=== PATIENT | female | born 1970 | race Caucasian/White ===

== ENCOUNTER → 2018-10-06 15:13 | Outpatient (CLI) | payer SELFPAY ==
--- NOTE | 2018-10-06 15:19 | BI_ITS ---
MAMMOGRAPHY - BILATERAL SCREENING REASON FOR EXAM: Female, 48 years old. Routine annual screening examination. PERTINENT HISTORY: Grandmother with breast cancer. Occasional bilateral breast tenderness. TECHNIQUE: Digital bilateral breast veronica (3D mammographic acquisition) in the CC and MLO projections. 2-D mediolateral oblique (MLO) and craniocaudad (CC) views of both breasts were obtained. CAD: Full Field Digital Mammography with Computer Added Detection was performed. COMPARISON: Comparison is made with prior study dated August 02, 2016 and September 23, 2013. FINDINGS: Breast Composition: The breasts are heterogeneously dense, which may obscure small masses. There are no dominant masses or suspicious calcifications. No other significant abnormalities are identified. There has been no significant change since the prior study. BI/SCREENING MAMM (CAD), BILAT IMPRESSION: Stable bilateral screening mammogram. Yearly follow-up mammogram recommended. (A) ASSESSMENT CATEGORY: BIRADS Category 1: Negative. A letter regarding these results will be sent to the patient by the facility within 30 days. Approximately 10% of breast cancers are not detected by mammography. A normal mammogram should not delay biopsy of a clinically suspicious abnormality. [id number] Electronically Signed: Isacc Wills, at 7:57 EDT , Service support ,
== END ==
PROVIDERS: Family Provider Family Medicine; PCP Family Medicine; Referring Provider Obstetrics & Gynecology Gynecology; Visit Provider Obstetrics & Gynecology Gynecology
DX: Z12.31 Encounter for screening mammogram for malignant neoplasm of breast (principal); Z80.3 Family history of malignant neoplasm of breast
CPT/HCPCS: 77063; 77067

== ENCOUNTER → 2019-03-31 11:54 | Outpatient (CLI) | payer SELFPAY ==
[2019-03-31 13:19] LABS: EST Glomerular Filtration Rate 81 mL/min (>60); Est Glom Filt Rate - Afr Amer 98 mL/min (>60); T4 Free Direct 1.09 ng/dL (0.76-1.46)
== END ==
PROVIDERS: Family Provider Family Medicine; PCP Family Medicine; Referring Provider Family Medicine; Visit Provider Family Medicine
DX: E03.9 Hypothyroidism, unspecified (principal)
CPT/HCPCS: 36415; 82565; 84439; 84443

== ENCOUNTER → 2020-08-01 06:44 | Outpatient (CLI) | payer OTHER, SELFPAY ==
--- NOTE | 2020-08-01 06:47 | ECHOD_ITS ---
Reason For Study: Chest Pain Procedure This was a 2D Doppler, Color Flow transthoracic echocardiogram. Contrast injection was performed. Exam performed in department. Left Ventricle Normal LV size. Left ventricular systolic function is normal. The estimated ejection fraction is 65 %. Transmitral doppler flow suggestive of impaired relaxation of left ventricle. No regional wall motion abnormalities noted. Right Ventricle Normal RV size. Normal systolic function. Atria Normal left atrium. Normal right atrium. No doppler evidence for ASD. Bubble contrast study negative for right to left interatrial shunt. Mitral Valve There is no mitral annular calcification. Mild diffuse mitral valve thickening. Equivocal mitral valve prolapse. Trivial mitral valve insufficiency. Tricuspid Valve Normal tricuspid valve. Trivial tricuspid valve insufficiency. Unable to estimate RV systolic pressure due to insufficient tricuspid regurgitant envelope. Aortic Valve Trisinus/trileaflet aortic valve. Normal aortic valve. Pulmonic Valve The pulmonic valve is not well visualized. Trivial pulmonic valve insufficiency. Great Vessels Normal sized aortic root. Pericardium/Pleural No pericardial effusion. Medication Performed a rapid injection of agitated mix of 9 cc saline and 1cc air to assess for atrial septal defect. MMode/2D Measurements & Calculations LVIDd: 4.0 cm IVSd: 0.86 cm Ao root diam: 3.0 cm LVIDs: 2.6 cm LVPWd: 0.79 cm RVDd: 2.8 cm FS: 36.0 % LAV(MOD-bp): 29.5 ml LVAd ap4: 19.2 cm2 SV(MOD-sp4): 28.2 ml LAV(MOD-bp) Indexed: 16.0 ml/m2 EDV(MOD-sp4): 44.8 ml LAV(MOD-sp2): 32.0 ml EDV(sp4-el): 46.1 ml LAV(MOD-sp4): 25.0 ml LVAs ap4: 10.3 cm2 ESV(MOD-sp4): 16.6 ml ESV(sp4-el): 17.0 ml EF(MOD-sp4): 62.9 % EF(sp4-el): 63.1 % SV(sp4-el): 29.1 ml LA A4 area: 12.7 cm2 LA dimension(2D): 2.9 cm RA A4 area: 8.5 cm2 Doppler Measurements & Calculations MV E max vikas: 51.8 cm/sec Lat Peak E' Vikas: 7.9 cm/sec Med Peak E' Vikas: 7.9 cm/sec MV A max vikas: 71.7 cm/sec E/E' lat: 6.6 E/E' med: 6.6 MV E/A: 0.72 Ao V2 max: 107.8 cm/sec LV V1 max: 112.2 cm/sec PA V2 max: 70.5 cm/sec Ao max P.7 mmHg LV V1 max P.0 mmHg Ao V2 mean: 82.5 cm/sec Ao mean P.9 mmHg Ao V2 VTI: 17.5 cm Interpretation Summary Left ventricular systolic function is normal. The estimated ejection fraction is 65 %. Mild diffuse mitral valve thickening. Equivocal mitral valve prolapse. Trivial mitral valve insufficiency. Trivial tricuspid valve insufficiency. Trivial pulmonic valve insufficiency. Unable to estimate RV systolic pressure due to insufficient tricuspid regurgitant envelope. Transmitral doppler flow suggestive of impaired relaxation of left ventricle Bubble contrast study negative for right to left interatrial shunt. Ordering Physician: Gloria James Referring Physician: Gloria James Performed By: Charlotte Brink, DANNY, RVT
--- NOTE | 2020-08-01 13:43 | STRESSREP_ITS ---
Stress Test Report Date: 08/01/2020 Procedure: Exercise tolerance test/imaging study Indications: Chest pain low Consent: Per the patient Procedure: The patient exercised on a Frederick protocol for 7 minutes and 30 seconds achieving a peak heart rate of 169 bpm (99% predicted maximal heart rate) with a peak blood pressure 118/70 mmHg and a peak MET capacity of 9.2 METs. The baseline ECG demonstrated normal sinus rhythm. The peak exercise ECG demonstrated no significant ischemic changes. EKG during recovery revealed no significant ischemic changes [There were no cardiac dysrhythmias pretest, during exercise, or recovery]. The functional capacity was considered normal for age. There was [no complaint of chest discomfort during exercise or recovery]. The examination was discontinued secondary to shortness of breath, achieving target heart rate. Impression: 1. Technically adequate (percent predicted maximal heart rate greater than 85%) exercise tolerance test 2. Stress test is negative for exercise-induced EKG changes of ischemia 3. The test test is negative for exercise-induced chest pain 4. Functional capacity is normal for age 5. Nuclear images pending Myocardial perfusion imaging study: Technique: The patient was injected with 11.1 mCi of technetium 99m Cardiolite and subsequently rest SPECT Cardiolite nuclear imaging was obtained in the horizontal long, vertical long, and short axis views. The patient exercised on a Frederick protocol. Please see above for details. The patient was injected with 33.3 mCi of technetium 99m Cardiolite and subsequently stress SPECT Cardiolite nuclear imaging was obtained in the horizontal long, vertical long, and short axis views. A gated Cardiolite study at peak stress was obtained. Interpretation: Rest and stress SPECT Cardiolite nuclear imaging status post realignment, normalization, and attenuation correction, demonstrates overall normal myocardial radioisotope uptake. The gated Cardiolite study demonstrates no significant regional wall motion abnormalities. The reported LVEF is greater than 70%. Impression: 1. There is no evidence of significant ischemia or infarction. 2. The gated Cardiolite study reports an LVEF of greater than 70%. This note was generated with [employer] software. It may contain incorrect words, spelling, and punctuation that were not noted in checking the note before signing.
== END ==
PROVIDERS: PCP Internal Medicine; Referring Provider Internal Medicine; Visit Provider Internal Medicine
DX: R07.9 Chest pain, unspecified (principal)
CPT/HCPCS: 78452; 93017; 93306; A9500; A4216

== ENCOUNTER → 2020-10-08 10:38 | Outpatient (CLI) | payer OTHER, SELFPAY ==
[2020-09-27 12:31] VITALS: BMI 30.7
== END ==
PROVIDERS: PCP Internal Medicine; Referring Provider Internal Medicine Critical Care Medicine; Visit Provider Internal Medicine Critical Care Medicine
DX: G47.10 Hypersomnia, unspecified (principal)
CPT/HCPCS: 95806

== ENCOUNTER → 2020-10-22 10:26 | Outpatient (CLI) | payer OTHER, SELFPAY ==
[2020-09-27 12:31] VITALS: BMI 30.7
[2020-10-22 13:26] LABS: Free T3 3.2 pg/mL (2.18-3.98); T4 Free Direct 1.76 ng/dL (0.76-1.46); Thyroid Stim Hormone (TSH) < 0.01 uIU/mL (0.358-3.74)
[2020-10-23 15:58] LABS: Carbohydrate AG 19-9 3 U/mL (0-35)
== END ==
PROVIDERS: PCP Internal Medicine; Referring Provider Internal Medicine; Visit Provider Internal Medicine
DX: E03.9 Hypothyroidism, unspecified (principal); Z01.419 Encounter for gynecological examination (general) (routine) without abnormal findings; Z83.49 Family history of other endocrine, nutritional and metabolic diseases
CPT/HCPCS: 36415; 84439; 84443; 84481; 86301

== ENCOUNTER → 2021-07-03 08:20 | Outpatient (CLI) | payer OTHER, SELFPAY ==
--- NOTE | 2021-07-03 08:21 | RAD_ITS ---
INDICATION: Chronic Back Pain EXAMINATION/TECHNIQUE: X-RAY - XR Spine Lumbar 2 or 3 Views COMPARISON: 05/27/2016. FINDINGS: VERTEBRAE: Preserved vertebral body height. No fracture. No spondylolisthesis. Preservation of the normal lumbar lordosis. Increased density visualized in the posterior column most prominent at L5 on the right. These demonstrate progression in comparison to the prior study. DISCS: Decreased intervertebral disc height visualized at L5-S1 INCLUDED ABDOMEN: Included bowel gas pattern is non-obstructive. RAD/Lumbar Spine 2 or 3 Views IMPRESSION: Degenerative changes visualized most prominent at L5-S1 with hypertrophic changes in the facet joints. Electronically Signed: Anibal Mckeon MD at 10:12 EST Tel , Service support ,
--- NOTE | 2021-07-03 08:21 | RAD_ITS ---
INDICATION: Chronic Back Pain EXAMINATION/TECHNIQUE: X-RAY - XR Sacrum/Coccyx Min 2 Views COMPARISON: 05/27/2016. FINDINGS: SACRUM/COCCYX: No displaced fracture, destructive or sclerotic lesions. Note that overlapping bowel shadows may however obscure fine detail in the frontal view. Note is made of degenerative changes at the lumbosacral junction with hypertrophic changes of the L5 facet joints. SACRO-ILIAC JOINTS: The articular structures are unremarkable. SOFT TISSUES: No soft tissue swelling or gas. RAD/Sacrum-Coccyx min 2 Views IMPRESSION: Degenerative changes of the lumbosacral junction. Unremarkable sacro-coccygeal spine. Electronically Signed: Anibal Mckeon MD at 10:34 EST Tel , Service support ,
[2021-07-03 10:13] LABS: Absolute Neutrophil Count 3.5 X10^3/uL (2.0-7.7); Basophil# 0.02 X10^3/uL; Basophil% 0.4 % (0-1); Eosinophil# 0.04 X10^3/uL; Eosinophils% 0.7 % (0-5); Hematocrit 41.4 % (37-47); Hemoglobin 13.5 g/dL (12.0-15.0); Lymphocyte % 28.7 % (19-41); Mean Corp Hgb Conc 32.6 g/dL (32-36); Mean Corpuscular Hgb 30.2 pg (27.0-32.0); Mean Corpuscular Volume 92.6 fL (81-99); Mean Platelet Vol. 9.5 fl (6.2-12.0); Monocyte# 0.43 X10^3/uL; Monocyte% 7.7 % (0-10); NRBC Flagged by Analyzer 0 % (0-5); Neutrophil # 3.47 X10^3/uL (2.7-7.7); Neutrophil % 62.1 % (47-70); Platelet Count 336 K/mm3 (150-450); RBC Distribution Width CV 12.3 % (11.6-14.6); RBC Distribution Width SD 41.6 fl (35.1-43.9); Red Blood Count 4.47 M/mm3 (4.2-5.4); White Blood Count 5.6 K/mm3 (4.4-11.0)
[2021-07-03 10:45] LABS: AST(SGOT) 15 U/L (15-37); Alanine Aminotransfer ALT/SGPT 25 U/L (13-56); Albumin, Serum 3.7 g/dL (3.2-5.0); Alkaline Phosphatase 90 U/L (45-117); Anion Gap 7 (5-15); BUN 13 mg/dL (7-18); BUN/Creat Ratio 16.8 RATIO (10-20); Calcium,Total 9.1 mg/dL (8.5-10.1); Chloride 105 mmol/L (98-107); Cholesterol 191 mg/dL (200); Creatinine, Serum 0.77 mg/dL (0.55-1.02); EST Glomerular Filtration Rate 84 mL/min (>60); Est Glom Filt Rate - Afr Amer 101 mL/min (>60); Globulin 3.8 g/dL (2.2-4.2); Glucose 113 mg/dL (74-106); High Density Lipoprotein 56 mg/dL; Potassium 3.9 mmol/L (3.5-5.1); Protein, Total 7.5 g/dL (6.4-8.2); Sodium Level 139 mmol/L (136-145); Thyroid Stim Hormone (TSH) 0.15 uIU/mL (0.358-3.74); Triglycerides 225 mg/dL; Very Low Density Lipoprotein 45 mg/dL (5-40)
== END ==
PROVIDERS: PCP Internal Medicine; Referring Provider Internal Medicine; Visit Provider Internal Medicine
DX: E03.9 Hypothyroidism, unspecified (principal); M54.9 Dorsalgia, unspecified; G89.29 Other chronic pain
CPT/HCPCS: 36415; 72100; 72220; 80053; 80061; 84443; 85025

== ENCOUNTER 2021-09-04 12:29 | Outpatient (CLI) | payer OTHER, SELFPAY ==
--- NOTE | 2021-09-04 12:48 | MRI_ITS ---
STUDY: BILATERAL BREAST MR WITHOUT AND WITH CONTRAST REASON FOR EXAM: Female, 51 years old. Family history of breast cancer. TECHNIQUE: Multi-sequence multi-echo imaging of both breasts was performed with a dedicated breast coil. T1-weighted and T2-weighted images were performed before the administration of contrast. T1-weighted images were also performed after the administration of 16 mL of Dotarem contrast without complications. COMPARISON: Screening mammogram dated 09/04/2021 and 10/06/2018. FINDINGS: RIGHT BREAST: The breast tissue is scattered fibroglandular densities with minimal background enhancement. Minimal ductal ectasia. There are no abnormal enhancing masses or areas of non-mass enhancement in the right breast. No abnormal axillary adenopathy. LEFT BREAST: The breast tissue is scattered fibroglandular densities with minimal background enhancement. Minimal ductal ectasia. There are no abnormal enhancing masses or areas of non-mass enhancement in the left breast. No abnormal axillary adenopathy. No abnormality in the visualized regions of the chest or liver. MRI/Breast Bilateral W/O and W IMPRESSION: Minimal bilateral ductal ectasia. No other abnormality is present. Annual screening mammogram with the appropriate. CATEGORY: BIRADS Category 2: Benign. A letter regarding these results will be sent to the patient by the facility within 30 days. Electronically Signed: Anival Guillermo MD at 10:22 EST ,
--- NOTE | 2021-09-04 13:58 | BI_ITS ---
MAMMOGRAPHY - BILATERAL SCREENING REASON FOR EXAM: Female, 51 years old. Routine annual screening examination. PERTINENT HISTORY: Grandmother with breast cancer. BRCA positive TECHNIQUE: Digital bilateral breast haseeb (3D mammographic acquisition) in the CC and MLO projections. 2-D mediolateral oblique (MLO) and craniocaudad (CC) views of both breasts were obtained. CAD: Full Field Digital Mammography with Computer Added Detection was performed. COMPARISON: Comparison is made with prior study dated 10/06/2018 and 08/02/2016. FINDINGS: Breast Composition: There are scattered areas of fibroglandular density. There are no dominant masses or suspicious calcifications. Stable small benign-appearing bilateral axillary lymph nodes. No other significant abnormalities are identified. There has been no significant change since the prior study. BI/SCRN MAMM (CAD)W/HASEEB BILAT IMPRESSION: Stable bilateral screening mammogram. Yearly follow-up mammogram recommended. (A) ASSESSMENT CATEGORY: BIRADS Category 2: Benign. A letter regarding these results will be sent to the patient by the facility within 30 days. Approximately 10% of breast cancers are not detected by mammography. A normal mammogram should not delay biopsy of a clinically suspicious abnormality. [id number] Electronically Signed: Isacc Wills MD at 14:57 EST ,
== END 2021-09-04 23:59 | disposition home or self-care (01) ==
PROVIDERS: PCP Internal Medicine; Referring Provider Obstetrics & Gynecology Gynecology; Visit Provider Obstetrics & Gynecology Gynecology
DX: Z12.31 Encounter for screening mammogram for malignant neoplasm of breast (principal); Z80.3 Family history of malignant neoplasm of breast; Z13.79 Encounter for other screening for genetic and chromosomal anomalies
CPT/HCPCS: 77049; 77063; 77067; A9575; A4216; C8908

== ENCOUNTER 2021-09-13 11:00 | Outpatient (CLI) | payer OTHER, SELFPAY | END 2021-09-13 23:59 | disposition home or self-care (01) | LOC: SL 11:52 | PROVIDERS: PCP Internal Medicine; Visit Provider Nurse Practitioner Acute Care | DX: G47.33 Obstructive sleep apnea (adult) (pediatric) (principal) ==

== ENCOUNTER → 2021-12-12 | Outpatient (CLI) | payer OTHER, SELFPAY | END | disposition home or self-care (01) | LOC: LAB 08:21 | PROVIDERS: PCP Internal Medicine; Referring Provider Internal Medicine; Visit Provider Internal Medicine | DX: E03.9 Hypothyroidism, unspecified (principal) | CPT/HCPCS: 36415; 84443 ==

== ENCOUNTER → 2021-12-17 | Outpatient (CLI) | payer OTHER, SELFPAY ==
[2021-12-17 15:48] LABS: Absolute Lymphocyte Count 2.42 X10^3/uL (0.83-4.51); Absolute Neutrophil Count 4.5 X10^3/uL (2.0-7.7); Basophil# 0.02 X10^3/uL; Basophil% 0.3 % (0-1); Eosinophil# 0.09 X10^3/uL; Eosinophils% 1.2 % (0-5); Hematocrit 41.4 % (37-47); Hemoglobin 13.6 g/dL (12.0-15.0); Lymphocyte # 2.42 X10^3/ul (0.83-4.51); Mean Corp Hgb Conc 32.9 g/dL (32-36); Mean Corpuscular Hgb 31.3 pg (27.0-32.0); Mean Corpuscular Volume 95.4 fL (81-99); Mean Platelet Vol. 9.7 fl (6.2-12.0); Monocyte# 0.56 X10^3/uL; Monocyte% 7.4 % (0-10); NRBC Flagged by Analyzer 0 % (0-5); Neutrophil # 4.46 X10^3/uL (2.7-7.7); Neutrophil % 58.8 % (47-70); Platelet Count 360 K/mm3 (150-450); RBC Distribution Width CV 12.6 % (11.6-14.6); Red Blood Count 4.34 M/mm3 (4.2-5.4); White Blood Count 7.6 K/mm3 (4.4-11.0)
[2021-12-17 16:28] LABS: AST(SGOT) 17 U/L (15-37); Alanine Aminotransfer ALT/SGPT 23 U/L (13-56); Albumin, Serum 3.8 g/dL (3.2-5.0); Alkaline Phosphatase 85 U/L (45-117); Anion Gap 5 (5-15); BUN 16 mg/dL (7-18); BUN/Creat Ratio 19.3 RATIO (10-20); Calcium,Total 9.6 mg/dL (8.5-10.1); Chloride 104 mmol/L (98-107); Creatinine, Serum 0.83 mg/dL (0.55-1.02); EST Glomerular Filtration Rate 77 mL/min (>60); Est Glom Filt Rate - Afr Amer 93 mL/min (>60); Globulin 3.7 g/dL (2.2-4.2); Glucose 82 mg/dL (74-106); Potassium 4.4 mmol/L (3.5-5.1); Protein, Total 7.5 g/dL (6.4-8.2); Sodium Level 139 mmol/L (136-145)
== END | disposition home or self-care (01) ==
LOC: BIMLAB 13:35
PROVIDERS: PCP Internal Medicine; Referring Provider Internal Medicine; Visit Provider Internal Medicine
DX: E03.9 Hypothyroidism, unspecified (principal)
CPT/HCPCS: 36415; 80053; 85025

== ENCOUNTER → 2022-02-20 | Outpatient (CLI) | payer OTHER, SELFPAY ==
[2022-02-20 12:24] LABS: Thyroid Stim Hormone (TSH) 0.15 uIU/mL (0.358-3.74)
== END | disposition home or self-care (01) ==
LOC: BIMLAB 09:24
PROVIDERS: PCP Internal Medicine; Referring Provider Physician Assistant; Visit Provider Physician Assistant
DX: E03.9 Hypothyroidism, unspecified (principal)
CPT/HCPCS: 36415; 84443

== ENCOUNTER → 2022-02-24 | Outpatient (CLI) | payer OTHER, SELFPAY ==
--- NOTE | 2022-02-24 09:50 | RAD_ITS ---
STUDY: X-RAY - PELVIS AND RIGHT HIP REASON FOR EXAM: Female, 52 years old. Pain. TECHNIQUE: 3 views of the pelvis and hip. COMPARISON: Bilateral hips, 07/19/2020. FINDINGS: There is a non-specific bowel gas pattern. Normal visualized soft tissue structures. Normal bilateral iliac wings, sacroiliac joints and visualized sacrum. Normal bilateral superior and inferior pubic rami. Normal pubic symphysis. Normal bilateral ischial tuberosities. Normal visualized right femoral head. Normal right acetabulum. Normal right hip joint. RAD/HIP, UNI W/ Pelvis 2-3 Views IMPRESSION: Normal x-ray examination of the pelvis and right hip. No major interval change. Electronically Signed: Chuck Shepherd DO at 22:06 EDT ,
== END | disposition home or self-care (01) ==
LOC: RAD 09:49
PROVIDERS: PCP Internal Medicine; Referring Provider Anesthesiology Pain Medicine; Visit Provider Anesthesiology Pain Medicine
DX: M25.551 Pain in right hip (principal)
CPT/HCPCS: 73502

== ENCOUNTER → 2022-04-24 | Outpatient (CLI) | payer OTHER, SELFPAY ==
[2022-04-24 17:09] LABS: Thyroid Stim Hormone (TSH) 0.54 uIU/mL (0.358-3.74)
== END | disposition home or self-care (01) ==
LOC: BIMLAB 15:21
PROVIDERS: PCP Internal Medicine; Referring Provider Internal Medicine; Visit Provider Internal Medicine
DX: E03.9 Hypothyroidism, unspecified (principal)
CPT/HCPCS: 36415; 84443

== ENCOUNTER → 2022-08-21 | Outpatient (CLI) | payer OTHER, SELFPAY ==
[2022-08-21 12:58] LABS: Thyroid Stim Hormone (TSH) 0.28 uIU/mL (0.358-3.74)
== END | disposition home or self-care (01) ==
LOC: BIMLAB 10:41
PROVIDERS: PCP Internal Medicine; Referring Provider Nurse Practitioner Family; Visit Provider Nurse Practitioner Family
DX: E03.9 Hypothyroidism, unspecified (principal)
CPT/HCPCS: 36415; 84443

== ENCOUNTER → 2022-09-01 | Outpatient (CLI) | payer OTHER, SELFPAY ==
[2022-09-01 12:10] LABS: Erythrocyte Sedimentation Rate 15 mm/hr (0-30)
[2022-09-01 12:13] LABS: Absolute Neutrophil Count 3.8 X10^3/uL (2.0-7.7); Basophil# 0.03 X10^3/uL; Basophil% 0.5 % (0-1); Eosinophil# 0.07 X10^3/uL; Eosinophils% 1.1 % (0-5); Lymphocyte % 29.6 % (19-41); Mean Corp Hgb Conc 32.6 g/dL (32-36); Mean Corpuscular Hgb 30.3 pg (27.0-32.0); Mean Corpuscular Volume 93.1 fL (81-99); Mean Platelet Vol. 9.8 fl (6.2-12.0); Monocyte# 0.39 X10^3/uL; Monocyte% 6.4 % (0-10); NRBC Flagged by Analyzer 0 % (0-5); Neutrophil % 62.4 % (47-70); Platelet Count 380 K/mm3 (150-450); RBC Distribution Width CV 12.6 % (11.6-14.6); RBC Distribution Width SD 43.2 fl (35.1-43.9); Red Blood Count 4.62 M/mm3 (4.2-5.4); White Blood Count 6.1 K/mm3 (4.4-11.0)
[2022-09-01 12:29] LABS: ALB/GLOB Ratio 0.9 RATIO (0.9-2.4); AST(SGOT) 21 U/L (15-37); Alanine Aminotransfer ALT/SGPT 28 U/L (13-56); Albumin, Serum 3.8 g/dL (3.2-5.0); Alkaline Phosphatase 91 U/L (45-117); Anion Gap 6 (5-15); BUN 16 mg/dL (7-18); BUN/Creat Ratio 20.2 RATIO (10-20); CRP 7.76 mg/L (0.0-3.0); Calcium,Total 9.7 mg/dL (8.5-10.1); Chloride 104 mmol/L (98-107); Creatinine, Serum 0.79 mg/dL (0.55-1.02); EST Glomerular Filtration Rate 81 mL/min (>60); Est Glom Filt Rate - Afr Amer 98 mL/min (>60); Globulin 4.1 g/dL (2.2-4.2); Glucose 95 mg/dL (74-106); Potassium 4.3 mmol/L (3.5-5.1); Protein, Total 7.9 g/dL (6.4-8.2); Rheumatoid Factor < 10.0 IU/mL (<15); Sodium Level 136 mmol/L (136-145)
[2022-09-01 12:34] LABS: Vitamin B12 367 pg/mL (211-911); Vitamin D,25 Hydroxy 22.1 ng/mL
[2022-09-02 14:36] LABS: ANTINUCLEAR ANTIBODIES DIRECT Negative (Negative)
[2022-09-02 14:37] LABS: CCP IgG Antibodies 1 units (0-19)
== END | disposition home or self-care (01) ==
LOC: BIMLAB 08:49
PROVIDERS: PCP Internal Medicine; Visit Provider Internal Medicine
DX: M19.90 Unspecified osteoarthritis, unspecified site (principal); E03.9 Hypothyroidism, unspecified; Z13.21 Encounter for screening for nutritional disorder
CPT/HCPCS: 36415; 80053; 82306; 82607; 85025; 85652; 86038; 86140; 86200; 86225; 86235; 86431

== ENCOUNTER → 2022-09-19 | Outpatient (CLI) | payer OTHER, SELFPAY ==
--- NOTE | 2022-09-19 09:58 | RAD_ITS ---
STUDY: X-RAY - PELVIS AND BILATERAL HIPS REASON FOR EXAM: Female, 52 years old. Bilateral hip pain. TECHNIQUE: AP view of the pelvis.? 2 views of the right hip, and 2 views of the left hip were obtained. COMPARISON: Pelvis and hip images dated February 08 FINDINGS: There is a non-specific bowel gas pattern. Normal visualized soft tissue structures. Normal bilateral iliac wings, sacroiliac joints and visualized sacrum. Normal bilateral superior and inferior pubic rami. Normal pubic symphysis. Normal bilateral ischial tuberosities. Sacralization of the right transverse process of L5, a normal variant which may be painful. Normal visualized right femoral head. Normal right acetabulum. Normal right hip joint. Normal visualized left femoral head. Normal left acetabulum. Normal left hip joint. RAD/Hips B/L min 2 views w/ Pelvis IMPRESSION: Stable sacralization of the right transverse process of L5, a normal variant which may be painful. Electronically Signed: Anival Guillermo, at 12:52 EDT ,
== END | disposition home or self-care (01) ==
LOC: MTRAD 09:58
PROVIDERS: PCP Internal Medicine; Referring Provider Internal Medicine; Visit Provider Internal Medicine
DX: M25.551 Pain in right hip (principal); M25.552 Pain in left hip
CPT/HCPCS: 73502; 73521

== ENCOUNTER → 2022-11-03 | Outpatient (CLI) | payer OTHER, SELFPAY ==
[2022-11-03 12:56] LABS: T4 Free Direct 1.03 ng/dL (0.76-1.46); Thyroid Stim Hormone (TSH) 1.13 uIU/mL (0.358-3.74)
== END | disposition home or self-care (01) ==
LOC: BIMLAB 10:19
PROVIDERS: PCP Internal Medicine; Referring Provider Internal Medicine; Visit Provider Internal Medicine
DX: E03.9 Hypothyroidism, unspecified (principal)
CPT/HCPCS: 36415; 84439; 84443

== ENCOUNTER → 2022-11-27 | Outpatient (CLI) | payer OTHER, SELFPAY ==
--- NOTE | 2022-11-27 11:09 | MRI_ITS ---
STUDY: BILATERAL BREAST MR WITHOUT AND WITH CONTRAST REASON FOR EXAM: Female, 52 years old. Family history of breast cancer and grandmother. TECHNIQUE: Multi-sequence multi-echo imaging of both breasts was performed with a dedicated breast coil. T1-weighted and T2-weighted images were performed before the administration of contrast. T1-weighted images were also performed after the intravenous administration of 15ml of Clariscan. COMPARISON: Screening mammograms dated November 28, 2022 and October 2018. Prior breast MRI dated September 04, 2021. FINDINGS: RIGHT BREAST: The breast tissue is scattered fibroglandular densities with no significant background enhancement. There are no abnormal enhancing masses or areas of non-mass enhancement in the right breast. No abnormal axillary adenopathy. LEFT BREAST: The breast tissue is scattered fibroglandular densities with no significant background enhancement. There are no abnormal enhancing masses or areas of non-mass enhancement in the left breast. No abnormal axillary adenopathy. No abnormality in the visualized regions of the chest or liver. MRI/Breast Bilateral W/O and W IMPRESSION: No abnormality on the breast MRI with contrast Annual screening mammogram alternating with breast MRI contrast would be appropriate. CATEGORY: BIRADS Category 2: Benign. A letter regarding these results will be sent to the patient by the facility within 30 days. Electronically Signed: Anival Guillermo MD at 15:44 EDT ,
--- NOTE | 2022-11-27 12:38 | BI_ITS ---
MAMMOGRAPHY - BILATERAL SCREENING REASON FOR EXAM: Female, 52 years old. Routine annual screening examination. PERTINENT HISTORY: Grandmothers with breast cancer. TECHNIQUE: Digital bilateral breast haseeb (3D mammographic acquisition) in the CC and MLO projections. 2-D mediolateral oblique (MLO) and craniocaudad (CC) views of both breasts were obtained. CAD: Full Field Digital Mammography with Computer Added Detection was performed. COMPARISON: Screening mammogram from 09/04/2021, 10/06/2018 FINDINGS: Breast Composition: There are scattered areas of fibroglandular density. There are no dominant masses or suspicious calcifications. Stable small benign-appearing bilateral axillary lymph nodes. No other significant abnormalities are identified. BI/SCRN MAMM (CAD)W/HASEEB BILAT IMPRESSION: Stable bilateral screening mammogram. Yearly follow-up mammogram recommended. (A) ASSESSMENT CATEGORY: BIRADS Category 2: Benign. A letter regarding these results will be sent to the patient by the facility within 30 days. Approximately 10% of breast cancers are not detected by mammography. A normal mammogram should not delay biopsy of a clinically suspicious abnormality. Electronically Signed: Gerson Angelo DO at 11:51 EDT ,
== END | disposition home or self-care (01) ==
PROVIDERS: PCP Internal Medicine; Referring Provider Obstetrics & Gynecology Gynecology; Visit Provider Obstetrics & Gynecology Gynecology
DX: Z12.31 Encounter for screening mammogram for malignant neoplasm of breast (principal); Z80.3 Family history of malignant neoplasm of breast
CPT/HCPCS: 77049; 77063; 77067; A9575; A4216; C8908

== ENCOUNTER → 2022-12-15 | Outpatient (CLI) | payer OTHER, SELFPAY ==
[2022-12-16 04:07] LABS: Carbohydrate AG 19-9 4 U/mL (0-35)
== END | disposition home or self-care (01) ==
LOC: BIMLAB 10:07
PROVIDERS: PCP Internal Medicine; Visit Provider Obstetrics & Gynecology Gynecology
DX: Z01.419 Encounter for gynecological examination (general) (routine) without abnormal findings (principal); Z80.0 Family history of malignant neoplasm of digestive organs
CPT/HCPCS: 36415; 86301

== ENCOUNTER 2023-02-10 08:00 | Outpatient (RCR) | payer SELFPAY | END 2023-02-10 19:00 | disposition home or self-care (01) | LOC: PT 08:00 | PROVIDERS: PCP Internal Medicine | DX: M25.551 Pain in right hip (principal); M25.552 Pain in left hip; M54.2 Cervicalgia ==

== ENCOUNTER → 2023-05-19 | Outpatient (CLI) | payer OTHER, SELFPAY ==
[2023-05-19 13:09] LABS: Vitamin D,25 Hydroxy 64.8 ng/mL
== END | disposition home or self-care (01) ==
PROVIDERS: PCP Internal Medicine; Visit Provider Internal Medicine
DX: E03.9 Hypothyroidism, unspecified (principal); E55.9 Vitamin D deficiency, unspecified
CPT/HCPCS: 36415; 82306; 84443

== ENCOUNTER → 2023-06-23 | Outpatient (CLI) | payer OTHER, SELFPAY ==
--- NOTE | 2023-06-23 16:42 | MRI_ITS ---
Abdominal MRI and MRCP without contrast 06/23/2023 5:00 PM COMPARISON: None CLINICAL HISTORY: Family history of Pancreatic cancer -- Two first degree relatives with pancreatic cancer. TECHNIQUE: Multiplanar and multisequence MR images of the abdomen were obtained with MRCP sequence. Three-dimensional post-processing reconstructions were performed. FINDINGS: Liver: Unremarkable Gallbladder: Surgically absent. Bile Ducts: Unremarkable Pancreas: Unremarkable Spleen: Unremarkable Adrenal Glands: Unremarkable Kidneys: Unremarkable GI Tract: Unremarkable Lymphadenopathy: Absent Ascites: Absent Bones: No suspicious lesions MRI/MRCP Abdomen without Contrast IMPRESSION: No abnormalities in the abdomen. Specifically, no evidence of pancreatic cancer. Electronically Signed: Huang Perez MD at 20:28 EST ,
== END | disposition home or self-care (01) ==
PROVIDERS: PCP Internal Medicine; Referring Provider Internal Medicine; Visit Provider Internal Medicine
DX: Z12.89 Encounter for screening for malignant neoplasm of other sites (principal); Z80.0 Family history of malignant neoplasm of digestive organs
CPT/HCPCS: 74181

== ENCOUNTER 2023-08-17 09:00 | Outpatient (RCR) | payer OTHER, SELFPAY | END 2023-09-03 23:59 | LOC: NS 09:00 | PROVIDERS: PCP Internal Medicine; Referring Provider Internal Medicine; Visit Provider Internal Medicine | DX: Z71.3 Dietary counseling and surveillance (principal); E66.9 Obesity, unspecified | CPT/HCPCS: 97802; 97803 ==

== ENCOUNTER → 2023-08-21 | Outpatient (CLI) | payer OTHER, SELFPAY ==
[2023-08-21 13:06] LABS: Thyroid Stim Hormone (TSH) 3.34 uIU/mL (0.358-3.74)
== END | disposition home or self-care (01) ==
LOC: BIMLAB 10:21
PROVIDERS: PCP Internal Medicine; Visit Provider Internal Medicine
DX: E03.9 Hypothyroidism, unspecified (principal)
CPT/HCPCS: 36415; 84443

== ENCOUNTER 2023-09-10 07:00 | Outpatient (RCR) | payer SELFPAY, OTHER ==
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
== END 2023-09-10 19:00 | disposition home or self-care (01) ==
LOC: PT 07:00
PROVIDERS: PCP Internal Medicine; Referring Provider Orthopaedic Surgery Orthopaedic Surgery of the Spine; Visit Provider Orthopaedic Surgery Orthopaedic Surgery of the Spine
DX: M40.202 Unspecified kyphosis, cervical region (principal)
CPT/HCPCS: 97162

== ENCOUNTER → 2023-09-14 | Outpatient (CLI) | payer OTHER, SELFPAY ==
--- NOTE | 2023-09-14 08:45 | MRI_ITS ---
EXAM: MR LUMBAR SPINE WITHOUT INTRAVENOUS CONTRAST CLINICAL INDICATION: Pain TECHNIQUE: Multiplanar and multisequence MR images of the lumbar spine without intravenous contrast. COMPARISON: No relevant prior studies available. FINDINGS: VERTEBRAE: Alignment of the lumbar vertebral bodies is normal. Normal vertebral body height. No bone marrow edema. SPINAL CORD: Conus medullaris terminates at T12 level. Normal conus medullaris and cauda equina. SACRUM/COCCYX: 2 cm bilateral sacral cysts extend into the neural foramina bilaterally. SOFT TISSUES: Normal. DISCS/SPINAL CANAL/NEURAL FORAMINA: L1-L2: L1-2: Mild disc space narrowing and desiccation. No disc protrusion. Normal spinal canal and neural foramina. L2-L3: Normal. Normal disc height and morphology. Normal spinal canal and lateral recesses. Normal neuroforamina. L3-L4: Mild disc space narrowing. No disc protrusion. Mild facet arthropathy. Normal caliber spinal canal and neural foramina. L4-L5: Normal disc height and morphology. Normal spinal canal and lateral recesses. Normal neuroforamina. Mild to moderate facet arthropathy. L5-S1: Normal disc height and morphology. Normal spinal canal and lateral recesses. Normal neuroforamina. Mild to moderate facet arthropathy. MRI/Spine Lumbar (Routine) IMPRESSION: 1. No evidence of disc herniation. 2. Mild multilevel facet arthropathy. 3. Normal caliber spinal canal and neural foramina. Electronically Signed: Salvador Salas MD at 9:49 EDT ,
== END | disposition home or self-care (01) ==
PROVIDERS: PCP Internal Medicine; Referring Provider Orthopaedic Surgery Orthopaedic Surgery of the Spine; Visit Provider Orthopaedic Surgery Orthopaedic Surgery of the Spine
DX: M54.16 Radiculopathy, lumbar region (principal)
CPT/HCPCS: 72148

== ENCOUNTER 2023-11-16 02:02 | Emergency (ER) | payer OTHER, SELFPAY ==
[2023-11-16 02:03] VITALS: BP 146/90; PULSE 88; RESP 18; TEMP 35.8; O2SAT 98; BMI 33.7
--- NOTE | 2023-11-16 02:12 | ED.VIS.CHEST ---
HPI History of Present Illness Chief Complaint: Chest Pain Informant: patient Onset/Context/Timing Onset: Today Activity at onset: sudden Timing: Continuous Quality: Positive for Tightness and - (Squeezing) Location: Substernal Worsened By: Nothing Relieved By: Nothing Associated Symptoms: Positive for Nausea; Negative for Vomiting, Diaphoresis, Dyspnea, Cough, Fever, Lightheadedness, Acid Reflux or Palpitations Narrative Narrative: Patient presents with chest pain that began today. Patient states it woke her up out of her sleep. Patient describes it as a squeezing. Patient states it is over the substernal area. Patient states it radiates up into her throat. Patient states nothing makes it better nothing makes it worse. Patient admits to some nausea but denies any vomiting. Patient denies any shortness of breath or cough. Patient denies any diaphoresis. Patient denies any fevers or chills. Patient had recent liposuction surgery 3 weeks ago. Patient states her surgery went well until today. CVD Risk Factors: Negative for Hypertension, Diabetes, Hypercholesterolemia, Family History 1' </=55 or Smoking PE Risk Factors: Positive for Recent Travel/Surgery; Negative for Recent Immobilization, Prior DVT or PE, Cancer or OCP + Smoking + >/=35 PFSH PFSH Medical History Acne Acquired hypothyroidism Anxiety Anxiety and depression Arthritis Back pain Bilateral foot pain Bilateral hip pain Cervical radiculopathy Change in skin mole Chest pain Chronic back pain Chronic cough Chronic GERD Constipation Contact dermatitis Dysthymic Encounter for vitamin deficiency screening Family history of pancreatic cancer Fatigue Foot pain Hemorrhoids Hip pain Hip pain History of iron deficiency History of pneumonia Hyperglyceridemia Hypothyroidism Iliotibial band syndrome of right side Intractable migraine Left knee pain Migraine Migraine Mitral valve disease Mitral valve prolapse Myalgia Neoplasm of uncertain behavior of skin Numbness and tingling Obesity (BMI 30-39.9) Pain in thoracic spine Perioral dermatitis Polyarthropathy Post-menopausal Right hip pain Sciatica Skin mole Snoring SOB (shortness of breath) Vitamin D deficiency Weight gain Home Medications estradiol 0.5 mg tablet (Estrace) 0.5 mg PO DAILY 07/02/21 [History Last Taken Unknown] L.acidophilus-L.plantarum-L.rhamnosus 1 billion cell capsule,delay rel (Probiotic Pearls Women's) cap PO 01/16/22 [History Last Taken Unknown] cholecalciferol (vitamin D3) 1,250 mcg (50,000 unit) capsule 1,250 mcg PO QWEEK #20 caps 09/01/22 [Rx Last Taken Unknown] multivitamin 1 tab PO DAILY 09/01/22 [History Last Taken Unknown] montelukast 10 mg tablet (Singulair) 10 mg PO QHS #90 tabs 12/15/22 [Rx Last Taken Unknown] Synthroid 100 mcg tablet (levothyroxine) 100 mcg PO DAILY #60 tabs 05/20/23 [Rx Last Taken Unknown] sertraline 100 mg tablet 100 mg PO DAILY #90 tabs 08/24/23 [Rx Last Taken Unknown] naltrexone 8 mg-bupropion 90 mg tablet,extended release (Contrave) 1 tab PO BID #60 tabs 09/29/23 [Rx Last Taken Unknown] propranolol 20 mg tablet 20 mg PO BID #180 tabs 10/19/23 [Rx Last Taken Unknown] rizatriptan 10 mg tablet See Rx Instructions PO .COMPLEX #14 tabs 10/19/23 [Rx Last Taken Unknown] apixaban 5 mg tablet (Eliquis) 5 mg PO BID #74 tabs 11/16/23 [Rx Last Taken Unknown] Allergy/AdvReac Type Severity Reaction Status Date / Time pseudoephedrine Allergy Unknown Other Verified 11/16/23 02:03 sumatriptan [From Imitrex] AdvReac Unknown Swelling Verified 11/16/23 02:03 Family History Grandmother Colon cancer Diabetes Breast cancer Grandfather Heart disease Mother Thyroid disorder Sister Thyroid disorder Father Hyperlipemia Uncle Cancer pancreatic Surgical History History of cholecystectomy History of colonoscopy History of hysterectomy Hx of tubal ligation Social History Smoking Status: Never smoker alcohol intake: current alcohol intake frequency: holidays/special occasions only substance use type: does not use what type of physical activity do you participate in: none ROS ROS ED Constitutional Constitutional ED: Denies chills or fever(s) Eyes Eyes: Denies blurry vision or change in vision ENT ENT ED: Denies rhinorrhea or sore throat Cardiovascular Cardiovascular: Reports chest pain; Denies palpitations Respiratory/Chest Respiratory/Chest: Denies cough or dyspnea Gastrointestinal Gastrointestinal: Reports nausea; Denies abdominal pain or vomiting Genitourinary Genitourinary ED: Denies dysuria or hematuria Musculoskeletal Musculoskeletal: Reports neck pain; Denies back pain Integumentary Denies abscess or rash Neurologic Neurologic: Denies headache(s) or weakness Allergic/Immunologic Allergic/Immunologic ED: Denies mouth swelling or urticaria EXAM Physical Exam Const Vital Signs: 11/16/23 02:03 11/16/23 02:06 11/16/23 03:02 Temperature 96.5 F L Temperature Source Temporal Pulse Rate 88 71 Respiratory Rate 18 16 Respiratory Effort Short of Breath Blood Pressure 146/90 H 130/84 H Blood Pressure Mean 108 99 Pulse Ox 98 97 Oxygen Delivery Method Room Air Room Air Positive well nourished and well developed General Appearance ED: well developed and NAD HEENT Reports moist mucous membranes Neck supple and no JVD Resp normal respiratory effort and clear to auscultation bilaterally Cardio regular rate and regular rhythm GI soft to palpation and non-distended Neuro oriented x3, CN's II-XII intact bilaterally and no sensory deficits noted Sensorium / Orientation: awake and alert Motor Exam: strength 5/5 throughout MDM MDM MDM Narrative Medical decision making narrative: Differential diagnosis includes cardiac dysrhythmia, cardiac ischemia, electrolyte abnormality, pulmonary embolism, pneumonia, pneumothorax, GERD, pancreatitis, cholecystitis, cholelithiasis, and anxiety. EKG will be obtained to assess for cardiac dysrhythmia and cardiac ischemia. CTA of the chest will be obtained to assess for pneumonia and pulmonary embolism. CBC will be obtained to assess for leukocytosis and anemia. Comprehensive metabolic profile will be obtained to assess for hepatic function, renal function, and electrolyte abnormality. Lipase will be obtained to assess for pancreatitis. Lactate will be obtained to assess for sepsis. PT was INR and PTT will be obtained to assess for coagulopathy. High-sensitivity troponin will be obtained to assess for cardiac ischemia. 2-hour repeat high-sensitivity troponin will be obtained to assess for ongoing cardiac ischemia. Urinalysis will be obtained to assess for urinary tract infection. Lab Data Attestation: I reviewed the patient's lab results. Lab results narrative: CBC was reviewed and was within normal limits. PT with INR and PTT were reviewed and were within normal limits. Comprehensive metabolic profile was reviewed and was essentially within normal limits. High-sensitivity troponin was reviewed and was less than 3. Lipase was reviewed and was normal at 50. Lactate was reviewed and was normal at 1.8. Urinalysis was reviewed. There is no evidence of urinary tract infection or hematuria. Labs: Laboratory Results - last 24 hr 11/16/23 11/16/23 11/16/23 02:13 02:58 04:23 WBC 7.4 RBC 4.29 Hgb 13.0 Hct 40.1 MCV 93.5 MCH 30.3 MCHC 32.4 RDW Std Deviation 44.2 H RDW Coeff of Latosha 13.0 Plt Count 387 MPV 9.7 Immature Gran % (Auto) 0.500 Neut % (Auto) 49.4 Lymph % (Auto) 37.7 [place] % (Auto) 10.4 H Eos % (Auto) 1.6 Baso % (Auto) 0.4 Absolute Neuts (auto) 3.6 Absolute Lymphs (auto) 2.78 Nucleated RBC % 0 PT 13.8 INR 1.1 APTT 27.4 Sodium 139 Potassium 4.0 Chloride 105 Carbon Dioxide 24.0 Anion Gap 10 BUN 17 Creatinine 0.86 Estim Creat Clear Calc 81.86 Est GFR (MDRD) Af Amer 89 Est GFR (MDRD) Non-Af 73 BUN/Creatinine Ratio 19.8 Glucose 132 H Lactic Acid 1.8 Calcium 9.1 Total Bilirubin 0.30 AST 22 ALT 26 Alkaline Phosphatase 84 Troponin I High Sens < 3 L Total Protein 7.4 Albumin 3.4 Globulin 4.0 Albumin/Globulin Ratio 0.8 L Lipase 50 Urine Color Yellow Urine Clarity Clear Urine pH 6.5 Ur Specific [place] 1.010 Urine Protein Negative Urine Glucose (UA) Normal Urine Ketones Negative Urine Occult Blood Negative Urine Nitrite Negative Urine Bilirubin Negative Urine Urobilinogen Normal Ur Leukocyte Esterase Negative Urine RBC 0 SEEN Urine WBC 0 SEEN Ur Squamous Epith Cells 0 SEEN Urine Bacteria 0 SEEN Urine Mucus 0 SEEN Radiography Diagnostic Testing: Clinical Impression(s) from Imaging Studies Chest CTA 11/16/23 02:39 IMPRESSION: Positive for pulmonary emboli with large emboli on the left and findings of possible right heart strain. Electronically Signed: Gale Larsen MD at 4:23 EDT , ADDENDUM: 11/16/23 0431 IMPRESSION: Positive for pulmonary emboli with large emboli on the left and findings of possible right heart strain. N.B. : The above Results were Read Back by Gale Larsen MD to Marcello Morejon MD, and understanding confirmed on 11/16/2023 04:25:01 (ET). Electronically Signed: Gale Larsen MD at 4:23 EDT , CTA of the chest was obtained. There are pulmonary emboli with large emboli on the left and possible right heart strain. There are no other acute abnormalities noted. There is no evidence of aortic dissection. This was interpreted by the radiologist and was also independently reviewed by myself. EKG Initial EKG: Attestation: I personally reviewed and interpreted this EKG as follows: Interpretation: Sinus Rhythm (86) and Non-Specific ST Changes Comments: EKG was obtained. On my independent interpretation, it showed a normal sinus rhythm with a rate of 86. NE interval, QRS interval, and QTc intervals were all normal. Sawyer was normal. There are nonspecific ST-T wave changes. Prior EKG tracings: available for review Prior: Unchanged (08/01/2020) Treatment and Re-Evaluation :: Patient was given IV fluids, morphine, and Zofran. Patient was feeling better on reevaluation. Patient is hemodynamically stable. Patient was given a dose of Eliquis here. Patient was given a prescription for Eliquis. Patient was instructed to follow-up with her primary care physician in 5 to 7 days. Patient was instructed to return if worse in any way. Patient understood and was agreeable with the plan. All questions were answered. Discharge Plan Triage Chief Complaint: Chest Pain ED Provider: Marcello Morejon Dx/Rx/DC Orders Clinical Impression: Dyspnea, Pulmonary emboli Instructions: Pulmonary Embolism Prescriptions: New Eliquis 5 mg tablet 5 mg PO BID Qty: 74 0RF Rx Instructions: 10 mg twice a day for the first week. Then 5 mg twice a day. No Action estradiol [Estrace] 0.5 mg tablet 0.5 mg PO DAILY Rx Instructions: off 5 days; repeat cycle Probiotic Pearshantel Women's 1 billion cell capsule,delayed release(DR/EC) PO multivitamin Tablet 1 tab PO DAILY montelukast [Singulair] 10 mg tablet 10 mg PO QHS Qty: 90 2RF levothyroxine [Synthroid] 100 mcg tablet 100 mcg PO DAILY Qty: 60 2RF sertraline 100 mg tablet 100 mg PO DAILY Qty: 90 1RF cholecalciferol (vitamin D3) 1,250 mcg (50,000 unit) capsule 1,250 mcg PO QWEEK Qty: 20 2RF Contrave 8-90 mg tablet extended release 1 tab PO BID Qty: 60 1RF propranolol 20 mg tablet 20 mg PO BID Qty: 180 1RF rizatriptan 10 mg tablet See Rx Instructions PO .COMPLEX Qty: 14 1RF Rx Instructions: take 1 tab at onset of headache; if no relief may repeat 1 tab after at least 2 hrs; max = 3 tabs/24 hr PO Primary Care Provider: Oleksandr Holbrook Referrals: Oleksandr Holbrook MD [Primary Care Provider] - 3-5 Days Disposition Disposition: Home, Self Care
--- NOTE | 2023-11-16 02:39 | CT_ITS ---
We are attempting to reach an attending provider to discuss findings. An addendum with communication details will be sent when the communication is complete. STUDY: CTA CHEST REASON FOR EXAM: Female, 53 years old. Dyspnea RADIATION DOSAGE (If Supplied By Facility): CTDIvol = ( 19.31 ) mGy, DLP = ( 517.90 ) mGycm TECHNIQUE: The examination was performed with the intravenous administration of IV 100mL Isovue-370. Post-processing of the angiographic images was performed, with multiplanar reformation and 3D reconstruction. Individualized dose optimization techniques were used for this CT. COMPARISON: None. FINDINGS: LUNGS: Dependent atelectasis in the lower lobes. No consolidation. PLEURA: No pleural effusion. No pneumothorax. PULMONARY VESSELS: Large filling defect on the left most proximal in the interlobar artery, with extension into the distal branches in the lower lobe and left upper lobe. No definite filling defects on the right. MEDIASTINUM: Unremarkable. Small hiatal hernia. HEART: Not enlarged. Slight leftward bowing of the interventricular septum AORTA/GREAT VESSELS: Thoracic aorta is normal caliber. No aneurysm or dissection. UPPER ABDOMEN: No acute findings. Hepatomegaly and steatosis. BONES/SOFT TISSUES: No acute findings. OTHER: None. CT/CTA Chest W/WO Contrast IMPRESSION: Positive for pulmonary emboli with large emboli on the left and findings of possible right heart strain. Electronically Signed: Gale Larsen MD at 4:23 EDT ,
[2023-11-16 03:02] VITALS: BP 130/84; PULSE 71; RESP 16; O2SAT 97
[2023-11-16] MEDS: Morphine 4 MG/ML Syringe IV (03:04)
[2023-11-16] MEDS: 0.9% Normal Saline (1000mL) 1,000 ML 1000 ML IV (03:04)
[2023-11-16] MEDS: Ondansetron 4 MG/2 ML Vial IV (03:04)
[2023-11-16 03:09] LABS: Absolute Lymphocyte Count 2.78 X10^3/uL (0.83-4.51); Absolute Neutrophil Count 3.6 X10^3/uL (2.0-7.7); Basophil# 0.03 X10^3/uL; Basophil% 0.4 % (0-1); Eosinophil# 0.12 X10^3/uL; Eosinophils% 1.6 % (0-5); Hematocrit 40.1 % (37-47); Lymphocyte # 2.78 X10^3/ul (0.83-4.51); Lymphocyte % 37.7 % (19-41); Mean Corp Hgb Conc 32.4 g/dL (32-36); Mean Corpuscular Hgb 30.3 pg (27.0-32.0); Mean Corpuscular Volume 93.5 fL (81-99); Mean Platelet Vol. 9.7 fl (6.2-12.0); Monocyte# 0.77 X10^3/uL; Monocyte% 10.4 % (0-10); NRBC Flagged by Analyzer 0 % (0-5); Neutrophil # 3.63 X10^3/uL (2.7-7.7); Neutrophil % 49.4 % (47-70); Platelet Count 387 K/mm3 (150-450); RBC Distribution Width SD 44.2 fl (35.1-43.9); Red Blood Count 4.29 M/mm3 (4.2-5.4); White Blood Count 7.4 K/mm3 (4.4-11.0)
[2023-11-16 03:14] LABS: International Normalized Ratio 1.1; Prothrombin Time (Protime)PT. 13.8 SECONDS (11.7-14.9)
[2023-11-16 03:15] LABS: Partial Thromboplast Time 27.4 Seconds (24.1-36.2)
[2023-11-16 03:22] LABS: ALB/GLOB Ratio 0.8 RATIO (0.9-2.4); AST(SGOT) 22 U/L (15-37); Alanine Aminotransfer ALT/SGPT 26 U/L (13-56); Albumin, Serum 3.4 g/dL (3.2-5.0); Alkaline Phosphatase 84 U/L (45-117); Anion Gap 10 (5-15); BUN 17 mg/dL (7-18); BUN/Creat Ratio 19.8 RATIO (10-20); Calcium,Total 9.1 mg/dL (8.5-10.1); Chloride 105 mmol/L (98-107); Creatinine, Serum 0.86 mg/dL (0.55-1.02); EST Glomerular Filtration Rate 73 mL/min (>60); Est Glom Filt Rate - Afr Amer 89 mL/min (>60); Estimated Creatinine Clearance 81.86 ml/min; Glucose 132 mg/dL (74-106); Lipase 50 U/L (13-75); Protein, Total 7.4 g/dL (6.4-8.2); Sodium Level 139 mmol/L (136-145); Troponin-I HS (w/2H Reflex) < 3 pg/mL (3.0-54.0)
[2023-11-16 03:30] LABS: Lactic Acid 1.8 mmol/L (0.4-1.9)
[2023-11-16 04:00] VITALS: BP 128/74; PULSE 82; RESP 16; O2SAT 99
[2023-11-16 04:30] LABS: Bacteria 0 SEEN /hpf (None Seen); Mucous, Urine 0 SEEN /hpf (<or=2+); Red Blood Cells-Urine 0 SEEN /hpf (0-5); Squamous Epithelial Cells - UA 0 SEEN /hpf (5-10); White Blood Cells 0 SEEN /hpf (0-5)
[2023-11-16 04:31] LABS: Color, Urine Yellow (Yellow); Glucose, Dipstick Normal (Normal); Ketone-Dipstick Negative (Negative); Leukocyte Esterase-Dipstick Negative /ul (Negative); Nitrite-Dipstick Negative (Negative); Occult Blood-Urine Negative /ul (Negative); Protein-Dipstick Negative (Negative); Urine Bilirubin Dipstick Negative (Negative); Urine Clarity Clear (Clear); Urine Urobilinogen Normal (Normal); Urine pH 6.5 (5.0 - 8.0)
[2023-11-16 04:45] LABS: Reflex Troponin-HS? (from REC) Y
[2023-11-16 05:00] VITALS: BP 121/78; PULSE 78; RESP 18; O2SAT 99
[2023-11-16] MEDS: APIXABAN 5 MG TABLET 10 MG PO (05:13)
[2023-11-16 05:18] VITALS: BP 114/74; PULSE 74; RESP 16; TEMP 36.7; O2SAT 99
== END 2023-11-16 05:18 | disposition home or self-care (01) ==
PROVIDERS: Emergency Provider Emergency Medicine; PCP Internal Medicine; Visit Provider Emergency Medicine
DX: I26.99 Other pulmonary embolism without acute cor pulmonale (principal); E03.9 Hypothyroidism, unspecified; Z90.49 Acquired absence of other specified parts of digestive tract; Z98.51 Tubal ligation status; M54.2 Cervicalgia; R06.09 Other forms of dyspnea
CPT/HCPCS: 71275; 80053; 81001; 83605; 83690; 84484; 85025; 85610; 85730; 93005; 96361; 96374; 96375; 99284; J7030; Q9967; A4216; J2405

== ENCOUNTER → 2023-11-20 | Outpatient (CLI) | payer OTHER, SELFPAY ==
[2023-11-20 12:39] LABS: Cholesterol 231 mg/dL (200); High Density Lipoprotein 64 mg/dL; Thyroid Stim Hormone (TSH) 2.01 uIU/mL (0.358-3.74); Triglycerides 179 mg/dL; Very Low Density Lipoprotein 36 mg/dL (5-40)
== END | disposition home or self-care (01) ==
LOC: BIMLAB 10:04
PROVIDERS: PCP Internal Medicine; Visit Provider Internal Medicine
DX: E03.9 Hypothyroidism, unspecified (principal)
CPT/HCPCS: 36415; 80061; 84443

== ENCOUNTER 2024-02-02 08:30 | Outpatient (RCR) | payer OTHER, SELFPAY ==
--- NOTE | 2024-01-20 10:17 | HP.PTEVAL_ITS ---
Patient's Visit Information Visit Information Visit Information: NAHOMI GONZALES is a 54 year old F referred to Physical Therapy by Dr. Marcos Monroy MD with a diagnosis of cervical kyphosis with need for extensor strengthening. Date of Evaluation: 01/19/24 Physical Therapist: Elvis Sandy DPT Visit Plan Frequency: 2x /Week Duration: 4 Weeks Plan: Start with supine deep neck flexor strengthening, cervical retraction, shoulder girdle strengthening. Educate on proper posture and extensor endurance. May use US if needed for pain. Subjective Subjective: Pt is here today for her initial evaluation with diagnosis of cervical kyphosis with need for extensor strengthening. Pt. reports having neck issues for as long as she can remember. No mech of injury. Pt. reports pain throughout bilateral cervical erector spinae and B UT region. Pt. denies distal UE pain. Pt. has some tingling, but not major. Pt. reports 2/10 pain currently, but does get upto 5/10 with movement. 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 Pt. has to do some lifting. She also reports increased pain with rotation and with looking up. She has had xrays showing some degeneration in her lower cervical spine. Physician would like her to work on extensor strengthening to reduce stress to her spine. Pain cervical spine: Pain Intensity (Out of 10): 5 Pain Intensity Range: 3 and 8 Objective Objective: POSTURE: Pt. has fwrd head posture. Pt. is able to correct with VCing, but tends to fall back into this posture. Pt. has increased kyphosis of thoracic and cervical spine. Normal shoulder heights. PALPATION: Pt. has tenderness throughout B UT and B cervical erector spinae, mostly at lower cervical spine. NEURO: Normal throughout. ROM: CERVICAL SPINE: flexion min loss tightness, ext mod loss increase NW, SB mod loss bilat increase NW, rotation min/mod loss increase NW. Pt. has normal shoulder ROM without increase in symptoms. MMT: Pt. has normal strength throughout B shoulders without increase in symptoms. Pt. does present with posterior weakness throughout cervical extensors as well as deep cervical flexors (held lift for 8 sec). Special Tests C/S Radiculapathy - Left Upper limb tension test: Negative C/S Radiculapathy - Right Upper limb tension test: Negative C/S Radiculapathy - Left Spurlings: Negative C/S Radiculapathy - Right Spurlings: Negative C/S Radiculapathy - Left Cervical distraction: Negative C/S Radiculapathy - Right Cervical distraction: Negative Sharp Adrianna: Negative Vertebral Artery Test: Negative Alar Ligament Test: Negative Cervical Sitting: Protrusion - Mechanical Response: No effect Cervical Sitting: Protrusion - Symptoms During Testing: No effect Cervical Sitting: Protrusion - Symptoms After Testing: No effect Cervical Sitting: Retraction - Mechanical Response: No effect Cervical Sitting: Retraction - Symptoms During Testing: Decreases Cervical Sitting: Retraction - Symptoms After Testing: No better Cervical Sitting: Retraction-Extension - Mechanical Response: No effect Cerv Sitting: Retraction-Extension - Symptoms During Testing: Increases Cerv Sitting: Retraction-Extension - Symptoms After Testing: No worse Cervical Sitting: Sidebend Right - Mechanical Response: No effect Cervical Sitting: Sidebend Right - Symptoms During Testing: Increases Cervical Sitting: Sidebend Right - Symptoms After Testing: No worse Cervical Sitting: Sidebend Left - Mechanical Response: No effect Cervical Sitting: Sidebend Left - Symptoms During Testing: Increases Cervical Sitting: Sidebend Left - Symptoms After Testing: No worse Cervical Sitting: Rotation Right - Mechanical Response: No effect Cervical Sitting: Rotation Right - Symptoms During Testing: Increases Cervical Sitting: Rotation Right - Symptoms After Testing: No worse Cervical Sitting: Rotation Left - Mechanical Response: No effect Cervical Sitting: Rotation Left - Symptoms During Testing: Increases Cervical Sitting: Rotation Left - Symptoms After Testing: No worse Cervical Sitting: Flexion - Mechanical Response: No effect Cervical Sitting: Flexion - Symptoms During Testing: Increases Cervical Sitting: Flexion - Symptoms After Testing: No worse Cervical Lying: Retraction - Mechanical Response: No effect Cervical Lying: Retraction - Symptoms During Testing: Decreases Cervical Lying: Retraction - Symptoms After Testing: No better Balance/Special Test Scores Oswestry Low Back Score: 13 Goals Goal 1:: LTG: Pt. to be I with HEP. Goal Time Frame: 4-6 Weeks Goal 2:: STG: Pt. to sleep throughout the night without increase in symptoms. Goal Time Frame: 2-4 Weeks Goal 3:: LTG: Pt. to have increased cervical ROM by 25% in all directions. Goal Time Frame: 4-6 Weeks Goal 4:: LTG: Pt. to be able demonstrate improved posture throughout therapy session. Goal Time Frame: 4-6 Weeks Goal 5:: LTG: Pt. to complete cervical flexor endurance test with time of 30sec indicating increased neck endurance. Goal Time Frame: 4-6 Weeks Rehabilitation Potential Physical Therapy Diagnosis: Pt. has signs and symptoms consistent with cervical kyphosis with need for extensor strengthening. Pt. has marked cervical weakness and poor posture. Pt. would benefit from PT to work on cervical spine strengthening, postural strengthening and possible use modalities if needed intermittently for pain control. Rehabilitation Potential: Good Anticipated Interventions Patient/Client Instruction: Educate patient on: Condition, Plan of Care, Risk Factors and Benefits of Fitness Program For the Purpose of:: To foster healthy habits, To improve decision making, To facilitate caregiver knowledge, To improve self management, To prevent re-injury and To improve ability to perform tasks related to life management Therapeutic Exercise to Include: Strength training, Power training, Endurance training, Postural training, Flexibilty training, Passive ROM, Active ROM, Damian Exercises and Scapular Strength/Stabilization For the Purpose of:: To decrease pain, To increase ROM, To improve nutrient delivery to tissue, To increase oxygenation perfusion, To improve muscle performance and motor function and To improve ability to perform ADL's Ultrasound (thermal/non thermal): Yes For the Purpose of:: To decrease pain, To increase ROM and To improve nutrient delivery to tissue Text: Thank you for the opportunity to evaluate your patient. For Medicare and Medicare HMO plans, please review the plan of care and approve it. It will need to be FAXED BACK to us at [phone] for Medicare purposes. For Medicare only, by signing this I certify the plan of care. Please let me know if there are questions or concerns regarding this plan of care. Physician Signature: Date:
--- NOTE | 2024-07-05 08:59 | HP.PT.NRP ---
Patient Information Patient Information: NAHOMI GONZALES was seen in my office for initial evaluation on 01/19/24. The following Plan of Care was established for this patient: POC Established Initial Frequency: 2x /Week Initial Duration: 4 Weeks Anticipated Interventions Patient/Client Instruction: Educate patient on: Condition, Plan of Care, Risk Factors and Benefits of Fitness Program For the Purpose of:: To foster healthy habits, To improve decision making, To facilitate caregiver knowledge, To improve self management, To prevent re-injury and To improve ability to perform tasks related to life management Therapeutic Exercise to Include: Strength training, Power training, Endurance training, Postural training, Flexibilty training, Passive ROM, Active ROM, Damian Exercises and Scapular Strength/Stabilization For the Purpose of:: To decrease pain, To increase ROM, To improve nutrient delivery to tissue, To increase oxygenation perfusion, To improve muscle performance and motor function and To improve ability to perform ADL's Ultrasound (thermal/non thermal): Yes For the Purpose of:: To decrease pain, To increase ROM and To improve nutrient delivery to tissue Last Seen Last Seen: This patient was last seen in our office 02/02/24. Pertinent comments regarding their Physical therapy will appear below: Pt. was seen for her neck pain in PT. Pt. came to 2 follow ups, but has not been seen since. Pt. will be DC from PT at this point in time. At this point I will be discontinuing this patient from physical therapy. I would be happy to see this patient again in the future if found appropriate by the physician. Thank you! Elvis Sandy, DPT Balance/Gait/Functional tests Balance/Special Test Scores Oswestry Low Back Score: 13
== END 2024-02-02 19:00 | disposition home or self-care (01) ==
LOC: PT 08:30
PROVIDERS: PCP Internal Medicine; Referring Provider Orthopaedic Surgery Orthopaedic Surgery of the Spine; Visit Provider Orthopaedic Surgery Orthopaedic Surgery of the Spine
DX: M40.202 Unspecified kyphosis, cervical region (principal)
CPT/HCPCS: 97110; 97161

== ENCOUNTER → 2024-02-23 | Outpatient (CLI) | payer OTHER, SELFPAY ==
[2024-02-23 12:44] LABS: Absolute Lymphocyte Count 1.54 X10^3/uL (0.83-4.51); Absolute Neutrophil Count 5.6 X10^3/uL (2.0-7.7); Basophil# 0.03 X10^3/uL; Basophil% 0.4 % (0-1); Eosinophil# 0.14 X10^3/uL; Eosinophils% 1.8 % (0-5); Hematocrit 43.2 % (37-47); Hemoglobin 13.9 g/dL (12.0-15.0); Lymphocyte # 1.54 X10^3/ul (0.83-4.51); Lymphocyte % 19.3 % (19-41); Mean Corp Hgb Conc 32.2 g/dL (32-36); Mean Corpuscular Volume 93.3 fL (81-99); Mean Platelet Vol. 9.7 fl (6.2-12.0); Monocyte# 0.65 X10^3/uL; Monocyte% 8.2 % (0-10); NRBC Flagged by Analyzer 0 % (0-5); Neutrophil # 5.58 X10^3/uL (2.7-7.7); Platelet Count 326 K/mm3 (150-450); RBC Distribution Width CV 12.8 % (11.6-14.6); RBC Distribution Width SD 43.7 fl (35.1-43.9); Red Blood Count 4.63 M/mm3 (4.2-5.4)
[2024-02-23 12:52] LABS: ALB/GLOB Ratio 0.9 RATIO (0.9-2.4); AST(SGOT) 46 U/L (15-37); Alanine Aminotransfer ALT/SGPT 72 U/L (13-56); Albumin, Serum 3.6 g/dL (3.2-5.0); Alkaline Phosphatase 97 U/L (45-117); Anion Gap 5 (5-15); BUN 8 mg/dL (7-18); BUN/Creat Ratio 9.8 RATIO (10-20); Calcium,Total 9.4 mg/dL (8.5-10.1); Chloride 106 mmol/L (98-107); Creatinine, Serum 0.82 mg/dL (0.55-1.02); EST Glomerular Filtration Rate 77 mL/min (>60); Est Glom Filt Rate - Afr Amer 93 mL/min (>60); Glucose 107 mg/dL (74-106); Potassium 4.6 mmol/L (3.5-5.1); Protein, Total 7.6 g/dL (6.4-8.2); Sodium Level 137 mmol/L (136-145)
== END | disposition home or self-care (01) ==
LOC: BIMLAB 09:53
PROVIDERS: PCP Internal Medicine; Visit Provider Internal Medicine
DX: F41.9 Anxiety disorder, unspecified (principal); F32.A Depression, unspecified
CPT/HCPCS: 36415; 80053; 85025

== ENCOUNTER → 2024-04-11 | Outpatient (CLI) | payer OTHER, SELFPAY ==
--- NOTE | 2024-04-11 07:07 | BI_ITS ---
MAMMOGRAPHY - BILATERAL SCREENING REASON FOR EXAM: Female, 54 years old. Routine annual screening examination. PERTINENT HISTORY: Grandmother with breast cancer. TECHNIQUE: Digital bilateral breast haseeb (3D mammographic acquisition) in the CC and MLO projections. 2-D mediolateral oblique (MLO) and craniocaudad (CC) views of both breasts were obtained. CAD: Full Field Digital Mammography with Computer Added Detection was performed. COMPARISON: Comparison made with prior study November 27, 2022 and September 04, 2021. FINDINGS: Breast Composition: There are scattered areas of fibroglandular density. There are no dominant masses or suspicious calcifications. Stable small benign-appearing bilateral axillary lymph nodes. No other significant abnormalities are identified. There has been no significant change since the prior study. BI/SCRN MAMM (CAD)W/HASEEB BILAT IMPRESSION: Stable bilateral screening mammogram. Yearly follow-up mammogram recommended. (A) ASSESSMENT CATEGORY: BIRADS Category 2: Benign. A letter regarding these results will be sent to the patient by the facility within 30 days. Approximately 10% of breast cancers are not detected by mammography. A normal mammogram should not delay biopsy of a clinically suspicious abnormality. [id number] Electronically Signed: Isacc Wills MD at 9:23 EDT ,
== END | disposition home or self-care (01) ==
LOC: OPBI 07:06
PROVIDERS: PCP Internal Medicine; Referring Provider Obstetrics & Gynecology Gynecology; Visit Provider Obstetrics & Gynecology Gynecology
DX: Z12.31 Encounter for screening mammogram for malignant neoplasm of breast (principal); Z80.3 Family history of malignant neoplasm of breast
CPT/HCPCS: 77063; 77067

== ENCOUNTER → 2024-05-17 | Outpatient (CLI) | payer OTHER, SELFPAY ==
[2024-05-17 10:04] LABS: ALB/GLOB Ratio 0.9 RATIO (0.9-2.4); AST(SGOT) 27 U/L (15-37); Alanine Aminotransfer ALT/SGPT 29 U/L (13-56); Albumin, Serum 3.6 g/dL (3.2-5.0); Alkaline Phosphatase 86 U/L (45-117); Anion Gap 5 (5-15); BUN 15 mg/dL (7-18); BUN/Creat Ratio 18.6 RATIO (10-20); Calcium,Total 9.3 mg/dL (8.5-10.1); Chloride 104 mmol/L (98-107); Creatinine, Serum 0.81 mg/dL (0.55-1.02); EST Glomerular Filtration Rate 79 mL/min (>60); Est Glom Filt Rate - Afr Amer 95 mL/min (>60); Globulin 3.8 g/dL (2.2-4.2); Glucose 101 mg/dL (74-106); Potassium 4.9 mmol/L (3.5-5.1); Protein, Total 7.4 g/dL (6.4-8.2); Sodium Level 137 mmol/L (136-145); T4 Free Direct 0.98 ng/dL (0.76-1.46); Thyroid Stim Hormone (TSH) 0.804 uIU/mL (0.358-3.740)
== END | disposition home or self-care (01) ==
LOC: LAB 08:34
PROVIDERS: PCP Internal Medicine; Referring Provider Internal Medicine; Visit Provider Internal Medicine
DX: R74.8 Abnormal levels of other serum enzymes (principal); E03.9 Hypothyroidism, unspecified
CPT/HCPCS: 36415; 80053; 84439; 84443

== ENCOUNTER → 2024-05-18 | Outpatient (CLI) | payer OTHER, SELFPAY ==
[2024-05-18 12:43] LABS: D-Dimer Quantitative (DVT/PE) 0.27 FEU/ug/m (0.27-0.49)
== END | disposition home or self-care (01) ==
LOC: BIMLAB 08:28
PROVIDERS: PCP Internal Medicine; Referring Provider Internal Medicine; Visit Provider Internal Medicine
DX: I26.99 Other pulmonary embolism without acute cor pulmonale (principal)
CPT/HCPCS: 36415; 85379

== ENCOUNTER 2024-05-25 07:43 | Day surgery (SDC) | payer OTHER, SELFPAY ==
[2024-05-25] VITALS (10 sets, daily range): BP systolic 95–115; BP diastolic 67–90; PULSE 71–94; RESP 14–18; TEMP 36.1–37.1; O2SAT 95–99; BMI 30.6
--- NOTE | 2024-05-25 08:20 | HP.PCM_ITS ---
HPI - General General Date of Admission: 05/25/24 Date of Service: 05/25/24 Chief Complaint: Screening colonoscopy HPI Narrative NAHOMI GONZALES, is a 54 F who presents today for screening colonoscopy. She had a colonoscopy approximately 3 years ago and she had adenomatous polyps at that time. She was started on come back in 3 years for surveillance colonoscopy. She has a history of pulmonary emboli hypothyroidism, hypertension. She takes apixaban 5 mg p.o. twice daily. REPLACED BY [facility] Medical History (Updated 05/23/24 @ 12:59 by Aida Fonseca) Wears glasses Depression Low iron Pulmonary embolism Easy bruising Restless legs Injury of back Vertigo History of IBS Gastric reflux Non-smoker Asthma CPAP (continuous positive airway pressure) dependence Shortness of breath on exertion History of echocardiogram History of stress test Hx of colonic polyps Family history of colon cancer Colon cancer screening Elevated liver enzymes Mitral valve disease Obesity (BMI 30-39.9) Family history of pancreatic cancer Bilateral foot pain Skin mole Right hip pain Polyarthropathy Encounter for vitamin deficiency screening Left knee pain Change in skin mole Hypothyroidism Chronic back pain Foot pain Vitamin D deficiency Anxiety Migraine Mitral valve prolapse Hemorrhoids Cervical radiculopathy Pain in thoracic spine Myalgia Fatigue Post-menopausal Home Medications ?Medication ?Instructions ?Recorded ?Last Taken ?Type L.acidophilus-L.plantarum-L.rhamnosus 1 cap PO DAILY 01/16/22 Unknown History 1 billion cell capsule,delay rel (Probiotic Pearls Women's) apixaban 5 mg tablet (Eliquis) 5 mg PO BID 3 months #180 tabs 12/08/23 05/18/24 Rx ubrogepant 100 mg tablet (Ubrelvy) 100 mg PO ONCE #12 tabs 01/13/24 Unknown Rx sertraline 100 mg tablet 100 mg PO DAILY #90 tabs 02/01/24 Unknown Rx Synthroid 100 mcg tablet 100 mcg PO DAILY #90 tabs 03/09/24 Unknown Rx (levothyroxine) propranolol 60 mg capsule,24 60 mg PO QHS #30 caps 05/18/24 Unknown Rx hr,extended release naltrexone 8 mg-bupropion 90 mg 2 tab PO BID 05/23/24 05/22/24 History tablet,extended release (Contrave) Allergy/AdvReac Type Severity Reaction Status Date / Time pseudoephedrine Allergy Unknown Other Verified 05/23/24 12:48 sumatriptan (From Imitrex) AdvReac Unknown Swelling Verified 05/23/24 12:48 Family History Grandmother Colon cancer at 51yrs Diabetes Breast cancer Grandfather Heart disease Mother Thyroid disorder Sister Thyroid disorder Father Hyperlipemia Uncle Cancer pancreatic Surgical History (Updated 05/23/24 @ 12:59 by Aida Fonseca) Hx of colonoscopy History of colonoscopy History of hysterectomy History of cholecystectomy Hx of tubal ligation Social History household members: spouse current occupational status: employed 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[employer] Smoking Status: Never smoker alcohol intake: current alcohol intake frequency: holidays/special occasions only substance use type: does not use what type of physical activity do you participate in: none ROS Review of Systems ROS Unobtainable: other Constitutional Constitutional: Denies fatigue, fever(s), poor appetite, weight gain or weight loss ENT HEENT: Denies mouth lesions Cardiovascular Cardiovascular: Denies abdominal bloating, abdominal edema or abdominal pain Respiratory/Chest Respiratory/Chest: Denies change in mental status, change in phlegm color, chest congestion or chest tightness Gastrointestinal Gastrointestinal: Denies belching, bloating, change in bowel habits, change in stool character, chewing difficulty, coffee ground emesis, constipation, cramping, diarrhea, dyspepsia, dysphagia, early satiety, excessive flatus, fecal incontinence, heartburn, hematemesis, hematochezia, hemorrhoids, loose stools, melena, nausea, odynophagia, rectal bleeding, tenesmus, vomiting or weight changes Genitourinary Genitourinary: Denies abdominal discomfort, burning urination or itching Musculoskeletal Musculoskeletal: Reports as per HPI; Denies muscle weakness or myalgias Integumentary Integumentary: Denies jaundice Neurologic Neurologic: Denies lack of coordination or weakness Psychiatric Psychiatric: Denies confusion, depression, memory loss, mood swings, paranoia or suicidal ideation Endocrine Endocrinology: Denies systems reviewed and no addt'l complaints, except as documented Hematologic/Lymphatic Hematologic/Lymphatic: Denies anemia, easy bleeding, easy bruising or lymphadenopathy Allergic/Immunologic Allergic/Immunologic: Denies systems reviewed and no addt'l complaints, except as documented Vital Signs Vital Signs Vital Signs: 05/25/24 07:56 05/25/24 07:56 Temperature 97.0 F L Temperature Source Temporal Pulse Rate 94 Respiratory Rate 18 Respiratory Pattern Normal Blood Pressure 115/90 H Blood Pressure Mean 98 Blood Pressure Source Monitor Blood Pressure Position Semi-Fowlers Blood Pressure Location Right Arm Pulse Ox 99 Oxygen Delivery Method Room Air Weight Weight: 178 lb 9.191 oz Body Mass Index (BMI) 30.6 Physical Exam Const alert, oriented x3, no apparent distress, healthy appearing and well nourished General Appearance: cooperative, comfortable, well kempt and well developed Orientation / Consciousness: awake and oriented to person HEENT Head and Scalp: normocephalic and atraumatic Face and Sinus: normal facial exam Mouth: oral and palatal mucosa normal Eyes General Eye: normal appearance of both eyes Neck full ROM Lymph Lymphatic: no lymphadenopathy noted Chest inspection of chest normal Resp normal respiratory effort and no use of accessory muscles Cardio regular rate and regular rhythm GI normal to inspection, nondistended, normoactive bowel sounds, soft to palpation, non-tender, non-distended and no masses Auscultation: normoactive bowel sounds Palpation: soft Percussion: normal to percussion Rectal Exam: visual inspection normal and normal sphincter tone no CVA tenderness Back/Spine no CVA tenderness and normal ROM Extremity normal to inspection Peripheral Pulses: Yes pulses 2+ throughout Skin no rashes or lesions noted General Skin Exam: no breakdown, elasticity normal and turgor normal Neuro oriented x3 Motor Exam: strength 5/5 throughout Psych mental status grossly normal Appearance: grossly normal Attitude: calm Activity / Motor Behavior: appropriate eye contact Speech: normal speech Thought Process: normal thought process Thought Content: normal thought content Attention / Concentration: attention grossly intact Memory / Cognition: memory grossly intact Insight: insight good Judgement: judgement good Assessment & Plan Assessment/Plan (1) Colon cancer screening: PLAN: She will undergo surveillance colonoscopy. She was explained alternatives, benefits, risk including not withstanding bleeding, infection, sepsis, perforation, need for emergent urgent . She will have an ASA of 3.
--- NOTE | 2024-05-25 08:24 | PRE.ANES_ITS ---
ASA Classification* ASA Classification ASA Classification: 2 Assessment & Plan Anesthesia* Anesthesia Assessment Anesthesia Assessment: Discussed sedation and/or anesthesia options, risks, benefits, and alternatives with patient/parents/legal guardian/POA. Questions invited. The patient/parents/legal guardian/POA seems to understand and agrees to proceed with anesthesia plan. Reviewed the physical assessment, medical history, allergy history and patient home medications list prior to surgery/procedure/anesthetic and documented any changes. Performed airway and anesthesia risk assessments. Anesthesia Type Anesthesia Type: MAC Anesthesia Focused Assessment* Temperature: 97.0 F Pulse Rate: 94 Blood Pressure: 115/90 Respiratory Rate: 18 Pulse Ox: 99 Airway Assessment Mouth opens: >3 cm Mallampati Score: II Focused Labs Anesthesia Preop lab: CBC WBC 8.0 K/mm3 (4.4-11.0) 02/23/24 09:54 RBC 4.63 M/mm3 (4.2-5.4) 02/23/24 09:54 Hgb 13.9 g/dL (12.0-15.0) 02/23/24 09:54 Hct 43.2 % (37-47) 02/23/24 09:54 Plt Count 326 K/mm3 (150-450) 02/23/24 09:54 CHEMISTRY Potassium 4.9 mmol/L (3.5-5.1) 05/17/24 08:37 Sodium 137 mmol/L (136-145) 05/17/24 08:37 BUN 15 mg/dL (7-18) 05/17/24 08:37 Creatinine 0.81 mg/dL (0.55-1.02) 05/17/24 08:37 Glucose 101 mg/dL (74-106) 05/17/24 08:37 TSH 0.804 uIU/mL (0.358-3.740) 05/17/24 08:37 COAG PT 13.8 SECONDS (11.7-14.9) 11/16/23 02:13 Urine Test Negative Negative 05/05/12 08:49 Pre-Assessment Diagnosis/Proposed Procedure Planned Operative Procedure(s): CSCOPE OA Anesthesia History Anesthesia History - glass etcher: Anesthesia History - glass etcher Hx Hospitalization No 05/23/24 12:49 Any Problems With Anesthesia Yes: SLOW TO AWAKEN 05/23/24 12:49 Cholinesterase deficiency No 05/23/24 12:49 You/Your Family Experience No 05/23/24 12:49 fever (hyperthermia) with Relationship Recent Exposure to Contagious No 05/25/24 07:56 Disease Does patient have nerve No 05/23/24 12:49 stimulator Patient instructed to have device shut off --Does patient have Pacemaker No 05/25/24 07:56 or ICD? When Was Last Pacemaker Check QUESTION #4 FULL TEXT: You/Your Family Experience fever (hyperthermia) with Anesthesia Last Oral Intake Last Oral intake: Last Oral Intake NPO since 05:00 05/25/24 07:56 Meds taken in AM with sips of No 05/25/24 07:56 water? Meds patient instructed to take am of surgery PONV PONV - glass etcher: PONV - glass etcher Female Yes 05/23/24 12:49 HX of Motion Sickness Yes 05/23/24 12:49 HX of N/V After Surgery No 05/23/24 12:49 Non-Smoker Yes 05/23/24 12:49 Duration of Surgery greater No 05/23/24 12:49 than 60 minutes Number of Risk Factors 3 05/23/24 12:49 PONV Score Moderate Risk 05/23/24 12:49 Height & Weight Height & Weight: Anesthesia: Height & Weight Height 5 ft 4 in 05/25/24 07:56 Weight: 81 kg 05/25/24 07:56 Body Mass Index (BMI) 30.6 05/25/24 07:56 Respiratory Assessment Respiratory Assessment - glass etcher: Respiratory Tract Infection Hx - glass etcher Hx Respiratory Tract Infection No 05/23/24 12:49 STOP Sleep Apnea STOP Sleep Apnea - glass etcher: STOP Sleep Apnea - glass etcher Hx Hypertension No 05/23/24 12:49 Hx Sleep Apnea Yes 05/23/24 12:49 CPAP Yes 05/23/24 12:49 BIPAP No 05/23/24 12:49 Do you snore loudly (louder than talking or can be heard Do you often feel tired/ fatigued/ sleepy during daytime? Has anyone observed you stop breathing during sleep? STOP Results Positive 05/23/24 12:49 QUESTION #5 FULL TEXT : Do you snore loudly (louder than talking or can be heard through closed doors)? 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 Specify any problems Hx of Preganancy in last 3 No 05/23/24 12:49 Months Nurse Filling Out Transfusion DSCHRIBER 05/23/24 12:49 & Questions: Date: 05/23/24 05/23/24 12:49 Time: 12:51 05/23/24 12:49 Patient unable to answer at this time (ie. confused, unrespo /Reproduction History /Reproductive History - glass etcher: /Reproductive Hx- glass etcher Hx Now No 05/23/24 12:49 Gestational Age (in weeks): EDC: Hx Hx Para Hx Section SAB No 05/23/24 12:49 PFSH Medical History Wears glasses Depression Low iron Pulmonary embolism Easy bruising Restless legs Injury of back Vertigo History of IBS Gastric reflux Non-smoker Asthma CPAP (continuous positive airway pressure) dependence Shortness of breath on exertion History of echocardiogram History of stress test Hx of colonic polyps Family history of colon cancer Colon cancer screening Elevated liver enzymes Mitral valve disease Obesity (BMI 30-39.9) Family history of pancreatic cancer Bilateral foot pain Skin mole Right hip pain Polyarthropathy Encounter for vitamin deficiency screening Left knee pain Change in skin mole Hypothyroidism Chronic back pain Foot pain Vitamin D deficiency Anxiety Migraine Mitral valve prolapse Hemorrhoids Cervical radiculopathy Pain in thoracic spine Myalgia Fatigue Post-menopausal Home Medications ?Medication ?Instructions ?Recorded ?Last Taken ?Type L.acidophilus-L.plantarum-L.rhamnosus 1 cap PO DAILY 01/16/22 Unknown History 1 billion cell capsule,delay rel (Probiotic Pearls Women's) apixaban 5 mg tablet (Eliquis) 5 mg PO BID 3 months #180 tabs 12/08/23 05/18/24 Rx ubrogepant 100 mg tablet (Ubrelvy) 100 mg PO ONCE #12 tabs 01/13/24 Unknown Rx sertraline 100 mg tablet 100 mg PO DAILY #90 tabs 02/01/24 Unknown Rx Synthroid 100 mcg tablet 100 mcg PO DAILY #90 tabs 03/09/24 Unknown Rx (levothyroxine) propranolol 60 mg capsule,24 60 mg PO QHS #30 caps 05/18/24 Unknown Rx hr,extended release naltrexone 8 mg-bupropion 90 mg 2 tab PO BID 05/23/24 05/22/24 History tablet,extended release (Contrave) Allergy/AdvReac Type Severity Reaction Status Date / Time pseudoephedrine Allergy Unknown Other Verified 05/23/24 12:48 sumatriptan (From Imitrex) AdvReac Unknown Swelling Verified 05/23/24 12:48 Family History Grandmother Colon cancer at 51yrs Diabetes Breast cancer Grandfather Heart disease Mother Thyroid disorder Sister Thyroid disorder Father Hyperlipemia Uncle Cancer pancreatic Surgical History Hx of colonoscopy History of colonoscopy History of hysterectomy History of cholecystectomy Hx of tubal ligation Social History household members: spouse current occupational status: employed 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
--- NOTE | 2024-05-25 08:45 | COLBX_PTH ---
PATIENT: NAHOMI RANDHAWA LOC: EN U#:[id number] AGE/SX: 54/F ROOM: RE05/25/[address]: Dr. Adan Dyer DO : 1970 BED: DIS: 05/25/2024 SPEC #: [id number] RECD: 05/25/24 11:26 STATUS: SUKHJINDER VENEGAS #: [id number] JACQUELINE: 05/25/24 08:[address]: Adan Dyer DEPT: SURGICAL PATHOLOGY RECD BY: Esdras Haro ENTERED: 05/25/24 11:54 SP TYPE: COLON BX CAYLA DR: Dr. Oleksandr Holbrook MD Tissues: Transverse colon Procedures: Surgery Specimen Level IV HEADER OPERATION: Colonoscopy with biopsy PRE-OP DIAGNOSIS: Colon cancer screening TISSUE SUBMITTED: Transverse colon polyp biopsy MICROSCOPIC DIAGNOSIS Transverse colon polyp, biopsy: Fragments of tubular adenoma. 05/26/2024 MICROSCOPIC DESCRIPTION Slides are reviewed. GROSS DESCRIPTION Received in fixative is one container labeled with the patient's name and designated Transverse colon polyp biopsy. The specimen consists of two irregular fragments of light garcia soft tissue that in aggregate measure 0.6 x 0.2 x 0.1 cm. The specimen is totally submitted in one cassette. 05/25/2024 TC:1 CPT:07994
--- NOTE | 2024-05-25 08:58 | PCM.POST.ANE ---
Anesthesia: Postop Eval I Current Vital Signs Temperature: 97.6 F Pulse Rate: 81 Blood Pressure: 101/72 Respiratory Rate: 16 Pulse Ox: 95 Oxygen Delivery Method: Room Air Assessment Airway patent: Yes Spontaneous unlabored respirations: Yes Mental status: Asleep nausea: No Vomiting: No Anesthesia Complication: No Fluid Hydration Crystalloid volume administer (ml): 40 Total IV fluid infused: 40 Progress Note Anesthesia document: Postop Eval 1 completed: Yes
--- NOTE | 2024-05-25 08:59 | OP.COLON_ITS ---
Patient Name: Rosalie Galindo Procedure Date: 05/25/2024 8:22 AM Date of : 1970 Age: 54 Procedure: Colonoscopy Indications: High risk colon cancer surveillance: Personal history of colonic polyps Providers: Adan Dyer DO Referring MD: Oleksandr Holbrook MD Medicines: Monitored Anesthesia Care Patient Profile: This is a 54 year old female. Refer to note in patient chart for documentation of history and physical. Last Colonoscopy: 3 years ago. Complications: No immediate complications. Procedure: Pre-Anesthesia Assessment: - Prior to the procedure, a History and Physical was performed, and patient medications and allergies were reviewed. The patient is competent. The risks and benefits of the procedure and the sedation options and risks were discussed with the patient. All questions were answered and informed consent was obtained. Patient identification and proposed procedure were verified by the physician in the pre-procedure area. Mental Status Examination: alert and oriented. Respiratory Examination: clear to auscultation. CV Examination: normal. Prophylactic Antibiotics: The patient does not require prophylactic antibiotics. Prior Anticoagulants: The patient has taken no anticoagulant or antiplatelet agents. ASA Grade Assessment: II - A patient with mild systemic disease. After reviewing the risks and benefits, the patient was deemed in satisfactory condition to undergo the procedure. The anesthesia plan was to use monitored anesthesia care (MAC). Immediately prior to administration of medications, the patient was re-assessed for adequacy to receive sedatives. The heart rate, respiratory rate, oxygen saturations, blood pressure, adequacy of pulmonary ventilation, and response to care were monitored throughout the procedure. The physical status of the patient was re-assessed after the procedure. After I obtained informed consent, the scope was passed under direct vision. Throughout the procedure, the patient's blood pressure, pulse, and oxygen saturations were monitored continuously. The Colonoscope was introduced through the anus and advanced to the cecum, identified by appendiceal orifice and ileocecal valve. The colonoscopy was performed without difficulty. The patient tolerated the procedure well. The quality of the bowel preparation was adequate. The ileocecal valve, appendiceal orifice, and rectum were photographed. Scope In: 8:39:37 AM Scope Withdrawal Time 0 hours 5 minutes 46 seconds Scope Out: 8:51:57 AM Total Procedure Duration Time 0 hours 12 minutes 20 seconds Findings: The perianal and digital rectal examinations were normal. An 8 mm polyp was found in the transverse colon. The polyp was sessile. The polyp was removed with a cold biopsy forceps. Resection and retrieval were complete. Verification of patient identification for the specimen was done. Estimated blood loss was minimal. The exam was otherwise without abnormality on direct and retroflexion views. Impression: - One 8 mm polyp in the transverse colon, removed with a cold biopsy forceps. Resected and retrieved. - The examination was otherwise normal on direct and retroflexion views. Recommendation: - Discharge patient to home. - Resume previous diet. - Continue present medications. - Await pathology results. - Repeat colonoscopy in 5 years for surveillance. Procedure Code(s): --- Professional --- 63973, Colonoscopy, flexible; with biopsy, single or multiple CPT copyright 2021 [employer]. All rights reserved. The codes documented in this report are preliminary and upon pressed or blown glass worker review may be revised to meet current compliance requirements. Adan Dyer DO 05/25/2024 8:58:26 AM This report has been signed electronically. Number of Addenda: 0 Note Initiated On: 05/25/2024 8:22 AM
--- NOTE | 2024-05-25 08:59 | OP.CCLET_ITS ---
05/25/2024 Oleksandr Holbrook MD [address] [place] [address] [place] [address] Re : Colonoscopy procedure for Rosalie Galindo Dear Dr. Holbrook This procedure was performed on Saturday, May 25, 2024. My impressions and recommendations are as follows: Impressions : - One 8 mm polyp in the transverse colon, removed with a cold biopsy forceps. Resected and retrieved. - The examination was otherwise normal on direct and retroflexion views. Recommendations : - Discharge patient to home. - Resume previous diet. - Continue present medications. - Await pathology results. - Repeat colonoscopy in 5 years for surveillance. My findings are described in the full procedure note, which is enclosed. If I can be of further assistance, please feel free to contact me at . Sincerely, Adan Dyer, 05/25/2024 8:58:26 AM This report has been signed electronically.
--- NOTE | 2024-05-25 09:58 | PCM.POSTANE2 ---
Anesthesia Postop Eval I Sum Postop Eval Completion status Anesthesia document: Postop Eval 1 completed: Yes Anesthesia Postop Eval I Summary Anesthesia Postop Eval I Summary: Anesthesia Postop Eval I: Assessment Summary Airway patent Yes 05/25/24 08:59 [email or web address] Spontaneous unlabored Yes 05/25/24 08:59 [email or web address] respirations Mental status Asleep 05/25/24 08:59 [email or web address] nausea No 05/25/24 08:59 [email or web address] Vomiting No 05/25/24 08:59 [email or web address] Anesthesia Postop Eval I: Fluid Summary Crystalloid volume administer 40 05/25/24 08:59 [email or web address] (ml) Colloids volume administered ( ml) Blood Product volume administered (ml) Total IV fluid infused 40 05/25/24 08:59 [email or web address] Anesthesia Postop Eval I: Summary Notes Anesthesia Complication No 05/25/24 08:59 [email or web address] Anesthesia Complication Comment: Post-operative progress note Anesthesia: Postop Eval II Evaluation Mental status: Awake Pain Level: 0 nausea: No Vomiting: No
== END 2024-05-25 09:52 | disposition home or self-care (01) ==
LOC: EN 07:43 → AC 07:45
PROVIDERS: PCP Internal Medicine; Referring Provider Internal Medicine; Visit Provider Internal Medicine Gastroenterology
PROC: 0DJD8ZZ Inspection of Lower Intestinal Tract, Via Natural or Artificial Opening Endoscopic (ICD-10-PCS; CPT 45378; principal; 2024-05-25 08:40)
DX: Z12.11 Encounter for screening for malignant neoplasm of colon (principal); Z79.890 Hormone replacement therapy; K63.5 Polyp of colon; Z79.01 Long term (current) use of anticoagulants; I10 Essential (primary) hypertension; Z86.711 Personal history of pulmonary embolism; E03.9 Hypothyroidism, unspecified; F41.9 Anxiety disorder, unspecified; F32.A Depression, unspecified; Z79.899 Other long term (current) drug therapy; Z90.710 Acquired absence of both cervix and uterus; Z90.49 Acquired absence of other specified parts of digestive tract; Z98.51 Tubal ligation status
CPT/HCPCS: 45380; 88305; A4216; J2405

== ENCOUNTER → 2024-12-09 | Outpatient (CLI) | payer OTHER, SELFPAY ==
--- NOTE | 2024-12-09 13:26 | MRI_ITS ---
PROCEDURE: SPINE CERVICAL (ROUTINE) 12/09/2024 REASON FOR EXAM: PAIN TECHNIQUE: Multiplanar and multisequence images were obtained without IV contrast administration. COMPARISON: None. FINDINGS: Vertebrae: Cervical vertebral body heights are preserved. Bone marrow signal is unremarkable. Alignment: There is loss of the normal cervical lordosis.. Spinal Cord: Cervical spinal cord is of normal size and signal intensities. Structures at the foramen magnum are unremarkable. C2-3: There is a broad-based central disc protrusion. There is no facet arthropathy. There is no uncinate joint arthropathy. There is no central canal stenosis, lateral recess stenosis or foraminal narrowing. C3-4: There is a broad-based central disc protrusion. There is no facet arthropathy. There is no uncinate joint arthropathy. There is no central canal stenosis, lateral recess stenosis or foraminal narrowing. C4-5: There is a broad-based central disc protrusion. There is bilateral facet arthropathy. There is degenerative grade 1 anterolisthesis of C4 on C5. There is no central canal stenosis, lateral recess stenosis or foraminal narrowing. There are small Tarlov cysts noted bilaterally. C5-6: There is a broad-based right central and right lateral recess disc protrusion. There is an anterior disc protrusion. There is bilateral uncinate joint arthropathy, lnwzd-buyzfxp-wzqx-left. There is compression and posterior displacement of the right side of the spinal cord. There is mild lateral recess stenosis and moderate foraminal narrowing on the right. There is a large Tarlov cyst on the left and small Tarlov cyst on the right. C6-7: There is a broad-based central disc protrusion. There is bilateral uncinate joint arthropathy, rbwxk-usnwsty-lhgk-left. There is no central canal stenosis, lateral recess stenosis or foraminal narrowing. There are moderate Tarlov cysts bilaterally. C7-T1: There is no evidence of disc protrusion. There is no central canal stenosis, lateral recess stenosis or foraminal narrowing. There are large Tarlov cysts bilaterally. The paravertebral soft tissues are unremarkable. MRI/Spine Cervical (Routine) IMPRESSION: 1. Degenerative disc disease C2-3 through C6-7 with compression of the spinal cord at C5-6. 2. There is central canal stenosis and foraminal narrowing at C5-6, as describ ed. 3. There are Tarlov cysts at multiple levels as described. Reading Location: [place] [address]
== END | disposition home or self-care (01) ==
LOC: MRI 13:08
PROVIDERS: PCP Internal Medicine; Referring Provider Student in an Organized Health Care Education/Training Program; Visit Provider Student in an Organized Health Care Education/Training Program
DX: M54.12 Radiculopathy, cervical region (principal); M43.12 Spondylolisthesis, cervical region
CPT/HCPCS: 72141

== ENCOUNTER 2025-03-07 14:53 | Observation (INO) | payer OTHER, SELFPAY ==
--- NOTE | 2025-02-17 10:35 | PAT.ANE_ITS ---
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 When Was Last Pacemaker Check QUESTION #4 FULL TEXT: You/Your Family Experience fever (hyperthermia) with Anesthesia Last Oral Intake Last Oral intake: Last Oral Intake NPO since Meds taken in AM with sips of water? Meds patient instructed to take am of surgery PONV PONV - binder technician: PONV - binder technician Female Yes 02/17/25 10:20 HX of Motion Sickness Yes 02/17/25 10:20 HX of N/V After Surgery No 02/17/25 10:20 Non-Smoker Yes 02/17/25 10:20 Duration of Surgery greater Yes 02/17/25 10:20 than 60 minutes Number of Risk Factors 4 02/17/25 10:20 PONV Score Severe Risk 02/17/25 10:20 Height & Weight Height & Weight: Anesthesia: Height & Weight Height 5 ft 4 in 10/13/24 08:05 Respiratory Assessment Respiratory Assessment - binder technician: Respiratory Tract Infection Hx - binder technician Hx Respiratory Tract Infection No 02/17/25 10:20 STOP Sleep Apnea STOP Sleep Apnea - binder technician: STOP Sleep Apnea - binder technician Hx Hypertension No 02/17/25 10:20 Hx Sleep Apnea Yes 02/17/25 10:20 CPAP Yes 02/17/25 10:20 BIPAP No 02/17/25 10:20 Do you snore loudly (louder than talking or can be heard Do you often feel tired/ fatigued/ sleepy during daytime? Has anyone observed you stop breathing during sleep? STOP Results Positive 02/17/25 10:20 QUESTION #5 FULL TEXT : Do you snore loudly (louder than talking or can be heard through closed doors)? 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 Specify any problems Hx of Preganancy in last 3 N/A 02/17/25 10:20 Months Nurse Filling Out Transfusion NBUCHER 02/17/25 10:20 & Questions: Date: 02/17/25 02/17/25 10:20 Time: 10:21 02/17/25 10:20 Patient unable to answer at this time (ie. confused, unrespo /Reproduction History /Reproductive History - binder technician: /Reproductive Hx- binder technician Hx Now No 02/17/25 10:20 Gestational Age (in weeks): EDC: Hx Hx Para Hx Section SAB No 02/17/25 10:20 PFSH Medical History Wears glasses Depression Low iron Pulmonary embolism Easy bruising Restless legs Injury of back Vertigo History of IBS Gastric reflux Non-smoker Asthma CPAP (continuous positive airway pressure) dependence Shortness of breath on exertion History of echocardiogram History of stress test Hx of colonic polyps Family history of colon cancer Colon cancer screening Elevated liver enzymes Mitral valve disease Obesity (BMI 30-39.9) Family history of pancreatic cancer Bilateral foot pain Skin mole Right hip pain Polyarthropathy Encounter for vitamin deficiency screening Left knee pain Change in skin mole Hypothyroidism Chronic back pain Foot pain Vitamin D deficiency Anxiety Migraine Mitral valve prolapse Hemorrhoids Cervical radiculopathy Pain in thoracic spine Myalgia Fatigue Post-menopausal Home Medications ?Medication ?Instructions ?Recorded ?Last Taken ?Type L.acidophilus-L.plantarum-L.rhamnosus 1 cap PO DAILY 0 01/16/22 Unknown History 1 billion cell capsule,delay rel (Probiotic Pearls Women's) Synthroid 100 mcg tablet 100 mcg PO DAILY #90 tabs Unknown Rx (levothyroxine) naltrexone 8 mg-bupropion 90 mg 2 tab PO BID 3 months #360 tabs 01/25/25 Unknown Rx tablet,extended release (Contrave) methocarbamol 500 mg tablet 500 mg PO TID PRN pain/spa sms #60 02/13/25 Unknown Rx tabs atogepant 60 mg tablet (Qulipta) 60 mg PO DAILY Unknown History rimegepant 75 mg disintegrating 75 mg PO DAILY PRN fermin randy 02/17/25 Unknown History tablet (Nurtec ODT) sertraline 100 mg tablet 100 mg PO QHS 02/17/25 Unkno wn History Allergy/AdvReac Type Severity Reaction Status Date / Time pseudoephedrine Allergy Unknown Other Verified 02/17/25 10:15 sumatriptan (From Imitrex) AdvReac Unknown Swelling Verified 02/17/25 10:15 Family History Grandmother Colon cancer at 51yrs Diabetes Breast cancer Grandfather Heart disease Mother Thyroid disorder Sister Thyroid disorder Father Hyperlipemia Uncle Cancer pancreatic Surgical History Hx of colonoscopy History of colonoscopy History of hysterectomy History of cholecystectomy Hx of tubal ligation Social History household members: spouse current occupational status: employed 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 Gloria James DO Status: REG CLI Referring Dr: Jacob,Gloria DO Sex: F C Stress Test Report Date: 08/01/2020 Procedure: Exercise tolerance test/imaging study Indications: Chest pain low Consent: Per the patient Procedure: The patient exercised on a Frederick protocol for 7 minutes and 30 seconds achieving a peak heart rate of 169 bpm (99% predicted maximal heart rate) with a peak blood pressure 118/70 mmHg and a peak MET capacity of 9.2 METs. The baseline ECG demonstrated normal sinus rhythm. The peak exercise ECG demonstrated no significant ischemic changes. EKG during recovery revealed no significant ischemic changes [There were no cardiac dysrhythmias pretest, during exercise, or recovery]. The functional capacity was considered normal for age. There was [no complaint of chest discomfort during exercise or recovery]. The examination was discontinued secondary to shortness of breath, achieving target heart rate. Impression: 1. Technically adequate (percent predicted maximal heart rate greater than 85%) exercise tolerance test 2. Stress test is negative for exercise-induced EKG changes of ischemia 3. The test test is negative for exercise-induced chest pain 4. Functional capacity is normal for age 5. Nuclear images pending Myocardial perfusion imaging study: Technique: The patient was injected with 11.1 mCi of technetium 99m Cardiolite and subsequently rest SPECT Cardiolite nuclear imaging was obtained in the horizontal long, vertical long, and short axis views. The patient exercised on a Frederick protocol. Please see above for details. The patient was injected with 33.3 mCi of technetium 99m Cardiolite and subsequently stress SPECT Cardiolite nuclear imaging was obtained in the horizontal long, vertical long, and short axis views. A gated Cardiolite study at peak stress was obtained. Interpretation: Rest and stress SPECT Cardiolite nuclear imaging status post realignment, normalization, and attenuation correction, demonstrates overall normal myocardial radioisotope uptake. The gated Cardiolite study demonstrates no significant regional wall motion abnormalities. The reported LVEF is greater than 70%. Impression: 1. There is no evidence of significant ischemia or infarction. 2. The gated Cardiolite study reports an LVEF of greater than 70%. Echo (EF%) pertinent findings: [facility] [address] [place] [address] Echo Complete 08/01/20 0856 MR#: [id number] Acct: [id number] Name: NAHOMI RANDHAWA Rep #: [id number] : 1970 50 From: Juanpablo Gomez MD Attending Dr: Dr. Gloira James, Status: REG CLI Ordering Dr: Gloria James DO Date: 08/01/20 Location: [facility] Sex: F C Admitted: Reason For Study: Chest Pain Procedure This was a 2D Doppler, Color Flow transthoracic echocardiogram. Contrast injection was performed. Exam performed in department. Left Ventricle Normal LV size. Left ventricular systolic function is normal. The estimated ejection fraction is 65 %. Transmitral doppler flow suggestive of impaired relaxation of left ventricle. No regional wall motion abnormalities noted. Right Ventricle Normal RV size. Normal systolic function. Atria Normal left atrium. Normal right atrium. No doppler evidence for ASD. Bubble contrast study negative for right to left interatrial shunt. Mitral Valve There is no mitral annular calcification. Mild diffuse mitral valve thickening. Equivocal mitral valve prolapse. Trivial mitral valve insufficiency. Tricuspid Valve Normal tricuspid valve. Trivial tricuspid valve insufficiency. Unable to est imate RV systolic pressure due to insufficient tricuspid regurgitant envelope. Aortic Valve Trisinus/trileaflet aortic valve. Normal aortic valve. Pulmonic Valve The pulmonic valve is not well visualized. Trivial pulmonic valve insufficiency. Great Vessels Normal sized aortic root. Pericardium/Pleural No pericardial effusion. Recommendation Anesthesia Recommendation Anesthesia recommendation: OPTIMIZED for anesthesia
--- NOTE | 2025-02-23 06:55 | EKG12_ITS ---
Test Reason : PREOP Blood Pressure : */* mmHG Vent. Rate : 80 BPM Atrial Rate : 80 BPM P-R Int : 144 ms QRS Dur : 80 ms QT Int : 374 ms P-R-T Axes : 36 15 50 degrees QTcB Int : 431 ms Normal sinus rhythm Normal ECG Confirmed by STEVEN ESTRADA, VIKY ([id number]), videotape editor YARITZA JOINER ([id number]) on 02/24/2025 7:35:55 AM Referred By: Marcos Monroy Confirmed By: VIKY HARRIS MD
[2025-02-23 07:39] LABS: Hematocrit 41.8 % (37-47); Hemoglobin 14.0 g/dL (12.0-15.0); Immature Granulocytes Count 0.010 X10^3/uL (0.0-0.0); Mean Corp Hgb Conc 33.5 g/dL (32-36); Mean Corpuscular Volume 91.3 fL (81-99); Mean Platelet Vol. 8.8 fl (6.2-12.0); NRBC Flagged by Analyzer 0 % (0-5); Platelet Count 326 K/mm3 (150-450); RBC Distribution Width CV 12.7 % (11.6-14.6); RBC Distribution Width SD 42.6 fl (35.1-43.9); Red Blood Count 4.58 M/mm3 (4.2-5.4); White Blood Count 6.2 K/mm3 (4.4-11.0)
[2025-02-23 08:32] LABS: Anion Gap 14 (5-15); BUN 17 mg/dL (4-19); BUN/Creat Ratio 18.5 RATIO (10-20); Calcium,Total 9.6 mg/dL (7.6-11.0); Carbon Dioxide 23.5 mmol/L (21.0-32.0); Chloride 102 mmol/L (98-108); Glucose 115 mg/dL (70-99); HIV Nonreactive (Nonreactive); Hepatitis C Antibody Nonreactive (Nonreactive); Magnesium 2.3 mg/dL (1.5-2.2); Potassium 4.5 mmol/L (3.3-5.1)
[2025-03-07] VITALS (16 sets, daily range): BP systolic 100–141; BP diastolic 62–97; PULSE 65–89; RESP 14–16; TEMP 35.9–36.9; O2SAT 94–100; BMI 32.2
[2025-03-07] MEDS: Magnesium 1 GM over 15 mins IV (10:31)
[2025-03-07] MEDS: Lactated Ringers 1,000 ML 15 ML IV ×2 (10:32→15:30)
--- NOTE | 2025-03-07 11:04 | PCM.PRE.AN2 ---
ASA Classification* ASA Classification ASA Classification: 2 Assessment & Plan Anesthesia* Anesthesia Assessment Anesthesia Assessment: Discussed sedation and/or anesthesia options, risks, benefits, and alternatives with patient/parents/legal guardian/POA. Questions invited. The patient/parents/legal guardian/POA seems to understand and agrees to proceed with anesthesia plan. Reviewed the physical assessment, medical history, allergy history and patient home medications list prior to surgery/procedure/anesthetic and documented any changes. Performed airway and anesthesia risk assessments. Anesthesia Type Anesthesia Type: General (Consider GlideScope for intubation.) History Source History Obtained from:: Patient and Chart Anesthesia Focused Assessment* Temperature: 97.3 F Pulse Rate: 80 Blood Pressure: 126/78 Respiratory Rate: 16 Pulse Ox: 99 Oxygen Delivery Method: Room Air Airway Assessment Mouth opens: >3 cm Mallampati Score: III Teeth Condition: Intact Neck Range of motion (ROM): Limited ROM (Somewhat Decreased) Labs Anesthesia Preop lab: CBC WBC 6.2 K/mm3 (4.4-11.0) 02/23/25 07:12 02/23/25 RBC 4.58 M/mm3 (4.2-5.4) 02/23/25 07:12 02/23/25 Hgb 14.0 g/dL (12.0-15.0) 02/23/25 07:12 02/23/25 Hct 41.8 % (37-47) 02/23/25 07:12 02/23/25 Plt Count 326 K/mm3 (150-450) 02/23/25 07:12 02/23/25 CHEMISTRY Potassium 4.5 mmol/L (3.3-5.1) 02/23/25 07:12 02/23/25 Sodium 139 mmol/L (133-145) 02/23/25 07:12 02/23/25 Magnesium 2.3 mg/dL (1.5-2.2) H 02/23/25 07:12 02/23/25 BUN 17 mg/dL (4-19) 02/23/25 07:12 02/23/25 Creatinine 0.90 mg/dL (0.70-1.20) 02/23/25 07:12 02/23/25 Glucose 115 mg/dL (70-99) H 02/23/25 07:12 02/23/25 TSH 0.804 uIU/mL (0.358-3.740) 05/17/24 08:37 05/17/24 COAG PT 13.8 SECONDS (11.7-14.9) 11/16/23 02:13 11/16/23 Urine Test Negative Negative 05/05/12 08:49 05/05/12 Pre-Assessment Diagnosis/Proposed Procedure Planned Operative Procedure(s): (N/A) Anterior Cervical Fusion C4-5 and C5-6 Anesthesia History Anesthesia History - office agent: Anesthesia History - office agent Hx Hospitalization No 02/17/25 10:20 Any Problems With Anesthesia Yes: SLOW TO AWAKEN 02/17/25 10:20 Cholinesterase deficiency No 02/17/25 10:20 You/Your Family Experience No 02/17/25 10:20 fever (hyperthermia) with Relationship Recent Exposure to Contagious No 03/07/25 10:17 Disease Does patient have nerve No 02/17/25 10:20 stimulator Patient instructed to have device shut off --Does patient have Pacemaker No 03/07/25 10:17 or ICD? When Was Last Pacemaker Check QUESTION #4 FULL TEXT: You/Your Family Experience fever (hyperthermia) with Anesthesia Last Oral Intake Last Oral intake: Last Oral Intake NPO since 09:30 03/07/25 10:17 Meds taken in AM with sips of Yes 03/07/25 10:17 water? Meds patient instructed to take am of surgery Any additional information?: Yes NPO since: 09:30 (Patient took her preop Ensure at 9:30 AM.) Meds taken in AM with sips of water?: Yes Meds patient instructed to take am of surgery: Synthroid PONV PONV - office agent: PONV - office agent Female Yes 02/17/25 10:20 HX of Motion Sickness Yes 02/17/25 10:20 HX of N/V After Surgery No 02/17/25 10:20 Non-Smoker Yes 02/17/25 10:20 Duration of Surgery greater Yes 02/17/25 10:20 than 60 minutes Number of Risk Factors 4 02/17/25 10:20 PONV Score Severe Risk 02/17/25 10:20 Height & Weight Height & Weight: Anesthesia: Height & Weight Height 5 ft 4 in 03/07/25 10:17 Weight: 85.275 kg 03/07/25 10:17 Body Mass Index (BMI) 32.2 03/07/25 10:17 Respiratory Assessment Respiratory Assessment - office agent: Respiratory Tract Infection Hx - office agent Hx Respiratory Tract Infection No 02/17/25 10:20 STOP Sleep Apnea STOP Sleep Apnea - office agent: STOP Sleep Apnea - office agent Hx Hypertension No 02/17/25 10:20 Hx Sleep Apnea Yes 02/17/25 10:20 CPAP Yes 02/17/25 10:20 BIPAP No 02/17/25 10:20 Do you snore loudly (louder than talking or can be heard Do you often feel tired/ fatigued/ sleepy during daytime? Has anyone observed you stop breathing during sleep? STOP Results Positive 02/17/25 10:20 QUESTION #5 FULL TEXT : Do you snore loudly (louder than talking or can be heard through closed doors)? 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 Specify any problems Hx of Preganancy in last 3 N/A 02/17/25 10:20 Months Nurse Filling Out Transfusion NBUCHER 02/17/25 10:20 & Questions: Date: 02/17/25 02/17/25 10:20 Time: 10:21 02/17/25 10:20 Patient unable to answer at this time (ie. confused, unrespo /Reproduction History /Reproductive History - office agent: /Reproductive Hx- office agent Hx Now No 02/17/25 10:20 Gestational Age (in weeks): EDC: Hx Hx Para Hx Section SAB No 02/17/25 10:20 Active Medications Active Medications: Current Medications Generic Name Dose Route Start Last Admin Trade Name Aaronq PRN Reason Stop Dose Admin Acetaminophen 1,000 mg 03/07/25 12:00 03/07/25 10:32 Acetaminophen 500 Mg Tablet PO 03/07/25 12:01 1,000 mg PREOP ONE Administration Dexamethasone Sodium Phosphate 8 mg 03/07/25 12:00 Dexamethasone 10 Mg/Ml Vial IV 03/07/25 12:01 INTRAOP ONE Dexamethasone Sodium Phosphate 4 mg 03/07/25 12:00 Dexamethasone 4 Mg/Ml Vial IV 03/07/25 12:01 POSTOP ONE Cefazolin Sodium 2 gm/ Sodium 110 mls @ 150 mls/hr 03/07/25 12:00 Chloride IV 03/07/25 12:43 INTRAOP ONE Tranexamic Acid 1,000 mg/ 110 mls @ 440 mls/hr 03/07/25 12:00 Sodium Chloride IV 03/07/25 12:14 INTRAOP ONE Tranexamic Acid 1,000 mg/ 110 mls @ 440 mls/hr 03/07/25 12:00 Sodium Chloride IV 03/07/25 12:14 INTRAOP ONE Magnesium Sulfate 1 gm/ 102 mls @ 408 mls/hr 03/07/25 12:00 03/07/25 10:31 Dextrose IV 03/07/25 12:14 408 mls/hr PREOP ONE Administration Lactated Ringer's 1,000 mls @ 15 mls/hr 03/07/25 10:15 03/07/25 10:32 IV 15 mls/hr .Q48H ELVER Administration Insulin Human Lispro 1 - 6 unit 03/07/25 12:00 Insulin Lispro 100 Unit/Ml Insuln.Pen SC Q4H PRN PRN BG>/= 180, SEE PROTOCOL Protocol PFSH Medical History Wears glasses Depression Low iron Pulmonary embolism Easy bruising Restless legs Injury of back Vertigo History of IBS Gastric reflux Non-smoker Asthma CPAP (continuous positive airway pressure) dependence Shortness of breath on exertion History of echocardiogram History of stress test Hx of colonic polyps Family history of colon cancer Colon cancer screening Elevated liver enzymes Mitral valve disease Obesity (BMI 30-39.9) Family history of pancreatic cancer Bilateral foot pain Skin mole Right hip pain Polyarthropathy Encounter for vitamin deficiency screening Left knee pain Change in skin mole Hypothyroidism Chronic back pain Foot pain Vitamin D deficiency Anxiety Migraine Mitral valve prolapse Hemorrhoids Cervical radiculopathy Pain in thoracic spine Myalgia Fatigue Post-menopausal Home Medications ?Medication ?Instructions ?Recorded ?Last Taken ?Type L.acidophilus-L.plantarum-L.rhamnosus 1 cap PO DAILY 01/16/22 Unknown History 1 billion cell capsule,delay rel (Probiotic Pearls Women's) Synthroid 100 mcg tablet 100 mcg PO DAILY #90 tabs 12/06/24 03/07/25 Rx (levothyroxine) naltrexone 8 mg-bupropion 90 mg 2 tab PO BID 3 months #360 tabs 01/25/25 03/06/25 Rx tablet,extended release (Contrave) methocarbamol 500 mg tablet 500 mg PO TID PRN pain/spasms #60 02/13/25 03/06/25 Rx tabs atogepant 60 mg tablet (Qulipta) 60 mg PO DAILY 02/17/25 03/06/25 History rimegepant 75 mg disintegrating 75 mg PO DAILY PRN migraine 02/17/25 02/28/25 History tablet (Nurtec ODT) sertraline 100 mg tablet 100 mg PO QHS 02/17/25 03/06/25 History Allergy/AdvReac Type Severity Reaction Status Date / Time pseudoephedrine Allergy Unknown Other Verified 03/07/25 10:15 sumatriptan (From Imitrex) AdvReac Unknown Swelling Verified 03/07/25 10:15 Family History Grandmother Colon cancer at 51yrs Diabetes Breast cancer Grandfather Heart disease Mother Thyroid disorder Sister Thyroid disorder Father Hyperlipemia Uncle Cancer pancreatic Surgical History Hx of colonoscopy History of colonoscopy History of hysterectomy History of cholecystectomy Hx of tubal ligation Social History household members: spouse current occupational status: employed 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 Physical Exam Resp clear to auscultation bilaterally
--- NOTE | 2025-03-07 12:00 | PCM.HP.BLA ---
History and Physical Date of Admission: 03/07/25 MR#: [id number] Acct: [id number] Name: NAHOMI RANDHAWA Rep #: [id number] : 1970 Provider: Dr. Marcos Monroy MD Age/Sex: 55/F Location: [facility] [email or web address] Status: Signed Intake Vital Signs 10/14/2507:05 02/22/2508:04 Height 5 ft 4 in 5 ft 4 in Weight: 182 lb 184 lb 4 oz BMI 31.2 31.6 Intake Visit Reasons: cervical spine Chief Complaint: Cervical spine pre-op Accompanied by: Is patient in pain?: Yes Pain scale (1-10): 10 Allergies pseudoephedrine Allergy (Unknown, Verified 02/21/25 08:05) Othersumatriptan (From Imitrex) Adverse Reaction (Unknown, Verified 02/21/25 08:05) Swelling Medications ?Medication ?Instructions ?Recorded ?Confirmed ?Type L.acidophilus-L.plantarum-L.rhamnosus 1 cap PO DAILY 01/16/22 02/21/25 History 1 billion cell capsule,delay rel (Probiotic Pearls Women's) Synthroid 100 mcg tablet 100 mcg PO DAILY #90 tabs 12/06/24 02/21/25 Rx (levothyroxine) naltrexone 8 mg-bupropion 90 mg 2 tab PO BID 3 months #360 tabs 01/25/25 02/21/25 Rx tablet,extended release (Contrave) methocarbamol 500 mg tablet 500 mg PO TID PRN pain/spasms #60 02/13/25 02/21/25 Rx tabs atogepant 60 mg tablet (Qulipta) 60 mg PO DAILY 02/17/25 02/21/25 History rimegepant 75 mg disintegrating 75 mg PO DAILY PRN migraine 02/17/25 02/21/25 History tablet (Nurtec ODT) sertraline 100 mg tablet 100 mg PO QHS 02/17/25 02/21/25 History PFSH Medical History Wears glasses Depression Low iron Pulmonary embolism Easy bruising Restless legs Injury of back Vertigo History of IBS Gastric reflux Non-smoker Asthma CPAP (continuous positive airway pressure) dependence Shortness of breath on exertion History of echocardiogram History of stress test Hx of colonic polyps Family history of colon cancer Colon cancer screening Elevated liver enzymes Mitral valve disease Obesity (BMI 30-39.9) Family history of pancreatic cancer Bilateral foot pain Skin mole Right hip pain Polyarthropathy Encounter for vitamin deficiency screening Left knee pain Change in skin mole Hypothyroidism Chronic back pain Foot pain Vitamin D deficiency Anxiety Migraine Mitral valve prolapse Hemorrhoids Cervical radiculopathy Pain in thoracic spine Myalgia Fatigue Post-menopausal Surgical History Hx of colonoscopy History of colonoscopy History of hysterectomy History of cholecystectomy Hx of tubal ligation Family History Grandmother Colon cancer at 51yrs Diabetes Breast cancerGrandfather Heart diseaseMother Thyroid disorderSister Thyroid disorderFather HyperlipemiaUncle Cancer pancreatic Social History household members: spouse current occupational status: employed 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[employer] Smoking Status: Never smoker alcohol intake: current alcohol intake frequency: holidays/special occasions only substance use type: does not use what type of physical activity do you participate in: none HPI cervical spine Details: This documentation accurately reflects the service provided and the decisions made by me, Dr. Marcos Monroy MD 02/21/25 0758. Part of today?s visit was documented by Marcia Khan ATC, acting as scribe. NAHOMI GONZALES is a 55 year old F here today for pre-op for anterior cervical disc fusion C4-5 and C5-6 DOS 03/07/2025. Patient states her pain has been horrible the last week or so. She states she has had horrible migraines and pain. She denies any new injuries or accidents that would have caused the pain to worsen. She denies any recent injections. The patient is a 55-year-old female presenting for pre-operative evaluation and management of cervical radiculopathy. The patient reports experiencing constant pain and tightness in her shoulders, with a limited range of motion and frequent headaches, which have been persistent over the past week. She also notes a loss of strength in her hands, more pronounced on the left side, despite being right-handed. The patient has a history of mitral valve prolapse, diagnosed at the age of 27, for which she has not been under the care of a associate faculty recently. Her primary care physician has noted a slight murmur, but no significant concerns have been raised. She also has a history of sleep apnea, managed by a national service officer, and has been cleared for surgery by her national service officer. - Musculoskeletal: Reports constant shoulder pain and tightness, limited range of motion. - Neurological: Reports frequent headaches and loss of strength in hands, more on the left side. - Cardiovascular: Denies any new cardiac symptoms, reports history of mitral valve prolapse. - Respiratory: Reports history of sleep apnea, denies any new respiratory symptoms. Attestation: Documentation on this patient encounter was supported using ambient scribe technology/ voice AI technology. The patient consented to recording for the purpose of documenting the encounter. Provider reviewed content of the generated note prior to signature. 12/13/24: NAHOMI GONZALES is a 54 year old F here today for MRI review of her cervical spine. She states that her tightness is less severe because of the muscle relaxer we prescribed her last time. She denies recent injection for the neck. Feels like she is drifting to the side more when walking and does drop items out of her hand such as a bowl. Not changing over several years. No diabetes, no heart or lung issues, no blood thinners. Sees pulmonology at the hospital for sleep apnea. No O2. HPI from 10/13/24: The pain is in the back of the neck. The pain starts at the janice and then runs all the way down to the the right and left side of the shoulder, the left side feels the worst. Patient states it feels like there is a kink in the neck.Gets numbness in her shoulder blades and into her deltoids and will occasionally get pain to her dorsal forearm and wrist. No balance issues. No dexterity issues but feels like her hands are weaker. This has been going on since she was a teenager. She doesn't remember injuring it. She woke up one morning and she couldn't turn her head. Over the years this has been gradually getting worse, with it worsening over the last 3 weeks. Denies any surgery, it makes it difficult through out the day because she watches her grandson and does a lot of lifting. The pain is so bad it makes her feel sick. The pain gets worse when she turns her head to the left. Patient got a massage on Thursday, and it took a couple days to work. Her massage therapist stated that her neck and shoulders were really tight. Patient did see Dr. Davis for her tailbone and he stated that he could only inject 2 areas. Patient takes advil to less the intensity, but the pain is still there. No neck injections. Last injection was a year and half ago, no significant benefit. The patient has seen physical therapy late last year in April/May for her neck and completed 3 weeks of therapy with 2 sessions per week. She was then given a guided home exercise program. Patient was on blood thinners, but she stopped taking them in April. She had a cosmetic surgery and got a blood clot. Patient had to be on for 6 months. No diabetes. Denies any smoking, or drugs. Patient states that she gets numbness and tingling in the left arm and hands. It runs down the whole left arm. Ortho Exam General General: Yes no acute distress Neurologic: Yes alert and Yes oriented x3 Psychologic: Yes reasonable and appropriate Spine SPINE TESTING CERVICAL THORACIC LUMBAR Musculoskeletal Strength 0=absent - 5=normal Details: Neurological exam of the upper extremities shows 5X5 power. Normal sensation across all dermatomes. No hyperreflexia. No midline or paraspinal tenderness of the cervical region, there is right sided thoracic paraspinal tenderness. Coding Level of Care Code Off vis,est,level 4 Diagnoses Obesity (BMI 30-39.9) E66.9 Cervical myelopathy with cervical radiculopathy G95.9; M54.12 Spondylolisthesis, cervical region M43.12 Time Spent (min) 35 Assessment and Plan Assessment and Plan (1) Obesity (BMI 30-39.9): Status: Chronic (2) Cervical myelopathy with cervical radiculopathy: Status: Acute (3) Spondylolisthesis, cervical region: Status: Acute Plan Again reviewed prior x-rays show multilevel disc height loss throughout the cervical spine most severe at C5-6, C6-7. There is a mild retrolisthesis of C5 on C6 and a anterolisthesis of C4 on C5, with subtle instability on dynamic views. There is straightening of the normal cervical lordosis. Reviewed cervical MRI from December 09, 2024 which shows C4-5 broad-based disc protrusion with an anterolisthesis of C4 on C5, C5-6 broad-based right and right lateral recess disc protrusion and compression and posterior displacement of the right side of the spinal cord, there is also a mild lateral recess stenosis and moderate foraminal narrowing on the right. 1. Cervical radiculopathy - The patient is scheduled for cervical spine surgery to address nerve compression at C4-5 and C5-6. - Post-operative care will include wearing a collar for two weeks, followed by physical therapy to regain range of motion. - The patient will have follow-up appointments at two weeks, six weeks, three months, and one year, with x-rays at each visit to monitor healing. 2. Mitral valve prolapse - The patient has a history of mitral valve prolapse, with no recent cardiology follow-up. - The primary care physician has noted a slight murmur, but no significant concerns have been raised. - The patient will be observed overnight post-surgery due to this condition. 3. Sleep apnea - The patient has been cleared for surgery by her national service officer. - She will be observed overnight post-surgery due to her sleep apnea. - Wear the collar full-time for two weeks post-surgery, then gradually wean off. - Begin physical therapy after two weeks to improve range of motion. - Avoid heavy lifting and excessive neck movements for the first three months. - Attend follow-up appointments at two weeks, six weeks, three months, and one year for x-rays and evaluation. - Maintain a diet rich in calcium and vitamin D to support bone healing. - Stay active post-surgery to prevent complications such as blood clots and pneumonia. Explained imaging findings in detail. The patient has been dealing with neck pain for many years with that worsening over the last several years. The patient has tried injections and physical therapy in the past all of which did not give her any significant relief. This neck pain has made it difficult for her to do what she wishes to do and has been decreasing her quality of life. Discussed options today which includes more physical therapy versus C4-6 ACDF. Explained the ACDF procedure in detail. Discussed this procedure in detail and explained the risks, benefits and alternatives. The risks of surgery include but are not limited to infection, bleeding, injury to nerves and vessels, hematoma formation, dysphagia, dysphonia, recurrent laryngeal nerve injury, Sathish syndrome, DVT, pulmonary embolism, pneumonia, atelectasis, cardiopulmonary event, pseudoarthrosis, hardware failure, adjacent segment degeneration, need for further surgery, nerve root injury, spinal cord injury. Answered all questions to the patient?s satisfaction. Patient understands and agrees to proceed with surgery. Consent was signed.
[2025-03-07] MEDS: Midazolam 2 MG/2 ML Syringe IV (12:08)
[2025-03-07] MEDS: Cefazolin 1 GM/5 ML Vial 2 GM IV (12:08)
[2025-03-07] MEDS: Lidocaine 1% (5 ml sdv) 5 ML Vial IV (12:18)
[2025-03-07] MEDS: PROPOFOL 160.42 MG IV (12:22)
[2025-03-07] MEDS: fentaNYL 100 MCG/2 ML Ampul 200 MCG IV (12:44)
--- NOTE | 2025-03-07 12:45 | RAD_ITS ---
PROCEDURE: CERV SPINE 2 OR 3 VIEWS 03/07/2025 REASON FOR EXAM: ANTERIOR CERVICAL FUSION C4-5 C5-6 TECHNIQUE: Procedure Code: RADSPCL Modality: DX Procedure: CERV SPINE 2 OR 3 VIEWS COMPARISON: Cervical spine series, 04/08/2025 FINDINGS: 2 images were obtained intraoperatively for ACDF, C4 through C6. Fluoro time: 12.3 seconds. Dose: 0.67 mGy. RAD/Cerv Spine 2 or 3 Views IMPRESSION: As per findings. Reading Location: [id number]
[2025-03-07] MEDS: TRANEXAMIC ACID 1,000 MG/10 ML ML 2000 MG IV (14:14)
[2025-03-07] MEDS: dexMEDEtomidine 200 MCG/2 ML ML 32 MCG IV (14:39)
--- NOTE | 2025-03-07 14:53 | PCM.OPRPT ---
Procedures Musculoskeletal 20xxx-29xxx: Other Procedure See Report Operative Report (Standard) Operative Information Date of Procedure: 03/07/25 Pre-Operative Diagnosis: C4-5 spondylolisthesis, C4-6 disc degeneration with stenosis, radiculomyelopathy Post-Operative Diagnosis: Same Surgery/Procedure Performed: C4-6 ACDF vice president commercial bank: Yes Associate Financial Representative: Elba Zapata Tasks completed by airplane first officer: Closing, Removing tissue, Implanting device, Hemostasis: Electrocautery and Retracting Type of Anesthesia: General RN Documented Start/Stop Times: Operation Date: 03/07/25 12:00 Case Time Into Pre-Op 03/07/25 09:58 Out of Pre-Op 03/07/25 12:00 Anesthesia Start 03/07/25 12:08 Into Room 03/07/25 12:08 Procedure Start 03/07/25 12:48 Procedure End 03/07/25 14:34 Anesthesia End 03/07/25 14:51 Out of Room 03/07/25 14:51 Procedure Start Time: 12:48 Procedure Stop Time: 14:34 Select all DRAINS/GRAFTS/IMPLANTS that apply: Drains Drain details: Yamila , Graft Graft details: Cornerstone structural cortical cancellous strut allograft, DBX and Implanted device Implanted device details: Medtronic Wheatcroft Elite plate instrumentation Estimated Blood Loss: 30 cc Specimen collected: No Description of surgery: Preoperative diagnosis: C4-5 spondylolisthesis, C4-6 disc degeneration with stenosis, radiculomyelopathy Postoperative diagnosis: Same Name of procedure: C4-6 anterior cervical discectomy and fusion with plate instrumentation - Anterior cervical fusion C4-5, CPT code 83460 - Anterior plate instrumentation C4-6, CPT code 46160/59 - Anterior cervical fusion C5-6, CPT code 96058/51 -C4-5 structural allograft bone with DBX, CPT code 60221 - C5-6 structural allograft bone with DBX, CPT code 41336 Attending surgeon: Marcos Monroy M.D. Anesthesia: Gen. endotracheal Estimated blood loss: 30 mL Complications: None Instrumentation used: Medtronic Wheatcroft Elite plate, LASR corticocancellous block Indications: The patient is a pleasant 55-year-old lady who presented with neck pain, radiating pain to upper extremities, difficulty with dexterity and balance. MRI showed C4-5 spondylolisthesis, C4-6 disc degeneration with stenosis. After prolonged course of nonsurgical treatment, the patient requested surgical treatment. All risks and benefits of the procedure were explained to the patient. The risks include but are not limited to infection, bleeding, injury to nerves and vessels, vertebral artery injury, spinal cord injury, paralysis, vocal cord paralysis, injury to esophagus, pseudoarthrosis, need for further procedures, adjacent segment degeneration. Procedure: The patient was identified in the preoperative suite using unique patient identifiers. Skin was marked consent was taken and all questions were answered. The patient was then brought back to the operative room and a timeout was performed. General endotracheal anesthesia was given. Intraoperative neuro monitoring leads were applied. The patient was carefully positioned supine on a regular OR table. A lateral view with a C-arm was done to identify the level and to define the incision. The anterior neck was then prepped and draped in the usual fashion. A final timeout was then performed. A transverse skin incision was taken to the left of midline. Subcutaneous tissue was then divided with Bovie. Platysma was identified and cut along the incision with scissors. The fascial interval between the sternocleidomastoid and the larynx was developed. Omohyoid was identified and retracted. The esophagus with the larynx was retracted medially to reach the prevertebral fascia. Marker x-ray was performed with bent spinal needle and disc space and levels were confirmed. Longus coli muscle was elevated on both sides at and above and below C4-6 discs. Self-retaining retractors were then placed. A long handle knife was then used to perform annulotomy at C4-5. Disc fragments were removed with the pituitary. [place] pins were placed in C4 and C5 for disc distraction. Curettes and bur was utilized to remove cartilage from the endplates. Discectomy was performed laterally up to the uncovertebral joints. Posterior osteophytes were thinned down with the bur and adequate decompression in the central and foraminal areas were performed and PLL was thinned out. Once the disc space was prepared, trials of various sizes were utilized. Thorough irrigation was given. 7 mm LASR cortical cancellous allograft bone large footprint was then fashioned in such a way that concavities were burred out inferiorly and superiorly and half cc of DBX (demineralized bone matrix) was squeezed into the cancellous portion. The graft was then inserted into the C4-5 disc space. The retractors were then repositioned and the procedure was repeated for C5-6 disc with complete discectomy. Graft size was 6 mm at with large footprint at C5-6. The grafts were found to be in good apposition with good pullout strength. A 40 mm Medtronic Wheatcroft Elite plate was then fixed to C4-6 with 16 mm screws. A lateral x-ray was then taken to check the length of the screws. Both AP and lateral x-rays showed good positioning of plate and screws. The locking mechanism over the screw heads was then turned. Thorough irrigation was again given. Hemostasis was achieved. A Paauilo drain was then inserted. Closure was done with 3-0 Vicryl for the platysma and subcutaneous tissue layers and 4-0 Monocryl for the skin. Closure was done around the drain. Steri-Strips were applied and dressing was done with 4 x 4 gauze and Tegaderm. A cervical collar was then applied. The patient was then woken up from anesthesia extubated and taken to PACU in stable condition. From here, the patient will be transitioned to the floor. Intraoperative neuro monitoring was performed throughout this procedure. Motor evoked potentials were run periodically. All potentials remained at baseline throughout the procedure. I was present for the entire surgery and performed the surgery myself. Conductor Pullman Elba Zapata PA-C. My physician patient clerical assistant was a vital part of this case. They were important in appropriate retraction during the case, and protection of soft tissues during the procedure. Their intimate knowledge of the case and my steps aided in safe and expedient completion of the procedure as well as appropriate position of the patient during the surgery. They were also vital in assisting with closure under my direct supervision. Surgical Findings: See operative note Complications Complications: No
--- NOTE | 2025-03-07 14:59 | PCM.POST.ANE ---
Anesthesia: Postop Eval I Current Vital Signs Temperature: 97 F Pulse Rate: 74 Blood Pressure: 116/71 Respiratory Rate: 16 Pulse Ox: 95 Oxygen Delivery Method: Room Air Assessment Airway patent: Yes Spontaneous unlabored respirations: Yes Mental status: Awake and Calm nausea: No Vomiting: No Anesthesia Complication: No Fluid Hydration Crystalloid volume administer (ml): 2,000 Total IV fluid infused: 2,000 Progress Note Anesthesia document: Postop Eval 1 completed: Yes
--- NOTE | 2025-03-07 16:04 | POSTOPAN2_ITS ---
Anesthesia Postop Eval I Sum Postop Eval Completion status Anesthesia document: Postop Eval 1 completed: Yes Anesthesia Postop Eval I Summary Anesthesia Postop Eval I Summary: Anesthesia Postop Eval I: Assessment Summary Airway patent Yes 03/07/25 15:00 CRUTCH MAKER.ALONDRAOBRain Spontaneous unlabored Yes 03/07/25 15:00 CRUTCH MAKER.PASCUAL respirations Mental status Awake,Calm 03/07/25 15:00 CRUTCH MAKER.PASCUAL nausea No 03/07/25 15:00 CRUTCH MAKER.PASCUAL Vomiting No 03/07/25 15:00 CRUTCH MAKER.PASCUAL Anesthesia Postop Eval I: Fluid Summary Crystalloid volume administer 2,000 03/07/25 15:00 CRUTCH MAKER.ALONDRAOBY (ml) Colloids volume administered ( ml) Blood Product volume administered (ml) Total IV fluid infused 2,000 03/07/25 15:00 CRUTCH MAKER.PASCUAL Anesthesia Postop Eval I: Summary Notes Anesthesia Complication No 03/07/25 15:00 CRUTCH MAKER.PASCUAL Anesthesia Complication Comment: Post-operative progress note Anesthesia: Postop Eval II Evaluation Mental status: Awake Pain Level: 4 nausea: No Vomiting: No Complications Anesthesia Complication: No
--- NOTE | 2025-03-07 16:04 | PCM.POSTANE2 ---
Anesthesia Postop Eval I Sum Postop Eval Completion status Anesthesia document: Postop Eval 1 completed: Yes Anesthesia Postop Eval I Summary Anesthesia Postop Eval I Summary: Anesthesia Postop Eval I: Assessment Summary Airway patent Yes 03/07/25 15:00 DRIER BELT CONVEYOR.ALONDRAOBRain Spontaneous unlabored Yes 03/07/25 15:00 DRIER BELT CONVEYOR.PASCUAL respirations Mental status Awake,Calm 03/07/25 15:00 DRIER BELT CONVEYOR.PASCUAL nausea No 03/07/25 15:00 DRIER BELT CONVEYOR.PASCUAL Vomiting No 03/07/25 15:00 DRIER BELT CONVEYOR.PASCUAL Anesthesia Postop Eval I: Fluid Summary Crystalloid volume administer 2,000 03/07/25 15:00 DRIER BELT CONVEYOR.ALONDRAOBY (ml) Colloids volume administered ( ml) Blood Product volume administered (ml) Total IV fluid infused 2,000 03/07/25 15:00 DRIER BELT CONVEYOR.PASCUAL Anesthesia Postop Eval I: Summary Notes Anesthesia Complication No 03/07/25 15:00 DRIER BELT CONVEYOR.PASCUAL Anesthesia Complication Comment: Post-operative progress note Anesthesia: Postop Eval II Evaluation Mental status: Awake Pain Level: 4 nausea: No Vomiting: No Complications Anesthesia Complication: No
--- NOTE | 2025-03-07 17:42 | PCM.CONS.GEN ---
Assessment & Plan Assessment/Plan (1) Hypothyroidism: PLAN: Plan #Hypothyroidism -Continue Synthroid #Depression/anxiety -Continue home medications #CALI - Patient has home NIPPV but given positioning of collar unsure how well this would be able to be accommodated given full facemask on home machine and this had not been brought in from home - Family member at bedside reports patient can go a night without using the CPAP and does okay, she will be tired the next day but otherwise no complaints - Discussed with nurse, advised to keep patient in a semiupright position - If needed can have respiratory try to fit a mask/attempt to accommodate however given report that she can go for a day without NIPPV without deleterious side effects we will assess tolerability, again advised that she is not laid in flat position # History of migraines - Noted - Takes as needed Rimegepant on outpatient basis #C4-5 spondylolisthesis, 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 Monroy 03/07/25 - Management/pain management per primary #DVT ppx: Timing and agent at discretion of primary Estephania Castano MD Time spent in the patient's overall evaluation, decision-making process, review of diagnostic data, adjustment of management, discussion with other providers, nursing and ancillary staff involved in patient's care documentation, 16 Minutes HPI Consult Data Date of Consult: 03/07/25 HPI Narrative Reason for Consultation: Post op med management HPI Narrative: NAHOMI GONZALES, is a 55-year-old female history of hypothyroidism, anxiety, depression, migraines, CALI who presented [facility] 03/07/2025 for anterior cervical disc fusion. Hospitalist consulted postoperatively for medical management. Patient evaluated at bedside. Patient just arrived from the floor and had received pain medication, tired, would wake up but would quickly fall back asleep. FOR[facility]LY [facility], [facility] Medical History Wears glasses Depression Low iron Pulmonary embolism Easy bruising Restless legs Injury of back Vertigo History of IBS Gastric reflux Non-smoker Asthma CPAP (continuous positive airway pressure) dependence Shortness of breath on exertion History of echocardiogram History of stress test Hx of colonic polyps Family history of colon cancer Colon cancer screening Elevated liver enzymes Mitral valve disease Obesity (BMI 30-39.9) Family history of pancreatic cancer Bilateral foot pain Skin mole Right hip pain Polyarthropathy Encounter for vitamin deficiency screening Left knee pain Change in skin mole Hypothyroidism Chronic back pain Foot pain Vitamin D deficiency Anxiety Migraine Mitral valve prolapse Hemorrhoids Cervical radiculopathy Pain in thoracic spine Myalgia Fatigue Post-menopausal Home Medications ?Medication ?Instructions ?Recorded ?Last Taken ?Type L.acidophilus-L.plantarum-L.rhamnosus 1 cap PO DAILY 01/16/22 Unknown History 1 billion cell capsule,delay rel (Probiotic Pearls Women's) Synthroid 100 mcg tablet 100 mcg PO DAILY #90 tabs 12/06/24 03/07/25 Rx (levothyroxine) naltrexone 8 mg-bupropion 90 mg 2 tab PO BID 3 months #360 tabs 01/25/25 03/06/25 Rx tablet,extended release (Contrave) methocarbamol 500 mg tablet 500 mg PO TID PRN pain/spasms #60 02/13/25 03/06/25 Rx tabs atogepant 60 mg tablet (Qulipta) 60 mg PO DAILY 02/17/25 03/06/25 History rimegepant 75 mg disintegrating 75 mg PO DAILY PRN migraine 02/17/25 02/28/25 History tablet (Nurtec ODT) sertraline 100 mg tablet 100 mg PO QHS 02/17/25 03/06/25 History Allergy/AdvReac Type Severity Reaction Status Date / Time pseudoephedrine Allergy Unknown Other Verified 03/07/25 10:15 sumatriptan (From Imitrex) AdvReac Unknown Swelling Verified 03/07/25 10:15 Family History Grandmother Colon cancer at 51yrs Diabetes Breast cancer Grandfather Heart disease Mother Thyroid disorder Sister Thyroid disorder Father Hyperlipemia Uncle Cancer pancreatic Surgical History Hx of colonoscopy History of colonoscopy History of hysterectomy History of cholecystectomy Hx of tubal ligation Social History household members: spouse current occupational status: employed 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 Smoking Status: Never smoker alcohol intake: current alcohol intake frequency: holidays/special occasions only substance use type: does not use what type of physical activity do you participate in: none ROS ROS Narrative Unable to obtain secondary to patient quickly falling back asleep Physical Exam Narrative General: Resting comfortably, snoring HEENT: Atraumatic, normocephalic Eyes: extraocular movements grossly intact Neck: Patient has collar in place Respiratory: normal respiratory effort, no overt wheezes on auscultation Cardiovascular: no edema appreciated GI: nondistended Extremities: Moving all extremities Neuro: No overt focal neurological deficits though patient tired, not waking up for full neuroexam Psych: Attempts to be cooperative but tired Lab / Micro Data 02/23/25 07:12 02/23/25 07:12 Imaging Radiology Impression Cervical Spine X-Ray 03/07/25 12:45 IMPRESSION: As per findings. Reading Location: [id number] Charges/Coding Visit Charges Office Visits / Consults: 60805 OV L2 Est 10min
[2025-03-07] MEDS: Cefazolin 2 GM in 0.9% Normal Saline (100mL Bag) 100 ML IV (18:31)
[2025-03-07] MEDS: HYDROcodone Bitartrate/Apap 5/325 Tablet PO (18:56)
[2025-03-07] MEDS: Senna/Docusate Sodium 1 Tablet 2 TABLET PO (22:31)
[2025-03-08 01:14] VITALS: BP 103/67; PULSE 77; RESP 16; TEMP 37; O2SAT 96
[2025-03-08] MEDS: HYDROcodone Bitartrate/Apap 5/325 Tablet PO ×3 (01:17→09:44)
[2025-03-08] MEDS: Cefazolin 2 GM in 0.9% Normal Saline (100mL Bag) 100 ML IV (04:43)
--- NOTE | 2025-03-08 04:50 | RAD_ITS ---
PROCEDURE: CERV SPINE 2 OR 3 VIEWS 03/08/2025 REASON FOR EXAM: S/P CERVICAL FUSION. TECHNIQUE: Procedure Code: RADSPCL Modality: DX Procedure: CERV SPINE 2 OR 3 VIEWS COMPARISON: MRI of the cervical spine on 12/09/2024. Radiographs on 10/13/2024. FINDINGS: Unremarkable spinal fusion metallic metallic plate and screws at C4, C5 and C6 levels. Unremarkable disc spacer at C4-C5. Unremarkable disc spacer at C5-C6. Soft tissue edema and swelling, benign surgical finding. There are diffuse spondylotic changes. Findings are demonstrated to by diffuse disc space narrowing, osteophyte formation and degenerative endplate sclerosis. There is diffuse facet joint arthropathy with secondary bilateral neural foramina narrowing. No fracture or dislocation is seen. No aggressive lytic or blastic bony lesion is noted. RAD/Cerv Spine 2 or 3 Views IMPRESSION: Unremarkable spinal fusion metallic plate and screws at C4, C5 and C6 levels. Unremarkable disc spacer at C4-C5. Unremarkable disc spacer at C5-C6. Soft tissue edema and swelling, benign surgical finding. Reading [facility]
[2025-03-08 05:19] VITALS: BP 103/63; PULSE 65; RESP 16; TEMP 36.6; O2SAT 97
[2025-03-08] MEDS: 0.9% Saline Lock 10 ML Syringe IV ×2 (05:23→13:40)
[2025-03-08 07:30] LABS: Hematocrit 36.8 % (37-47); Hemoglobin 12.2 g/dL (12.0-15.0); Immature Granulocytes Count 0.040 X10^3/uL (0.0-0.0); Mean Corp Hgb Conc 33.2 g/dL (32-36); Mean Corpuscular Volume 92.2 fL (81-99); Mean Platelet Vol. 9.5 fl (6.2-12.0); NRBC Flagged by Analyzer 0 % (0-5); Platelet Count 299 K/mm3 (150-450); RBC Distribution Width CV 12.3 % (11.6-14.6); RBC Distribution Width SD 41.6 fl (35.1-43.9); Red Blood Count 3.99 M/mm3 (4.2-5.4); White Blood Count 13.8 K/mm3 (4.4-11.0)
--- NOTE | 2025-03-08 07:32 | DCINST_ITS ---
Discharge Instructions DC O2, CPAP, BIPAP needs Home O2 Discharge instructions: No Follow Up Care Test Results: Test results from this visit will be discussed in further detail at your follow- up appointment, if applicable. Discharge Plan Admission Admit Date/Time: 03/07/25 14:53 Attending Provider: Marcos Monroy Primary Care Provider: Heidy Hernandez Consulting Providers: Zenaida Reynoso Instructions Patient Instructions: Cervical Fusion Dc Additional Instructions / Restrictions: Keep Tegaderm and gauze clean and dry. After 5 days remove the Tegaderm and gauze and cover incision with a Band-Aid. Replace Band-Aid daily thereafter. Wear cervical collar full-time for the first 2 weeks. Eat soft solid foods as needed for dysphagia. Sleep in a recliner to help with swelling. No bending, lifting, twisting. Follow-up in clinic in 2 weeks. Discharge Orders/Prescriptions Prescriptions: New acetaminophen 500 mg Tablet 500 mg PO Q6H Qty: 30 0RF hydrocodone-acetaminophen 5-325 mg Tablet 1 tab PO Q6H PRN (Reason: pain) 7 Days Qty: 28 0RF methocarbamol 500 mg Tablet 750 mg PO TID PRN (Reason: pain/spasms) Qty: 60 0RF sennosides-docusate sodium [Stimulant Laxative Plus] 8.6-50 mg Tablet 2 tab PO BID PRN (Reason: constipation) Qty: 14 0RF meloxicam 15 mg Tablet 15 mg PO DAILY Qty: 30 0RF Continued Probiotic Pearls Women's 1 billion cell capsule,delayed release(DR/EC) 1 cap PO DAILY Nurtec ODT 75 mg tablet,disintegrating 75 mg PO DAILY PRN (Reason: migraine) Qulipta 60 mg tablet 60 mg PO DAILY sertraline 100 mg tablet 100 mg PO QHS levothyroxine [Synthroid] 100 mcg tablet 100 mcg PO DAILY Qty: 90 2RF Held Contrave 8-90 mg tablet extended release 2 tab PO BID 90 Days Qty: 360 0RF Hold Instructions: Resume on 03/15/25. hold until done taking hydrocodone- acetaminophen Discontinued methocarbamol 500 mg tablet 500 mg PO TID PRN (Reason: pain/spasms) Qty: 60 0RF Other Ambulatory Orders: 12 Lead EKG (Routine) Timeframe: 1 Day Location: None Selected Ordered By: Dr. Marcos Monroy Referrals / Follow Up: Oleksandr Holbrook MD [Med Staff - Active Staff] - Disposition Disposition (needs filled in before D/C Order can be placed): Home, Self Care
[2025-03-08] MEDS: Ensure Surgery 237 ML LIQUID PO ×2 (08:12→11:45)
[2025-03-08 08:34] LABS: Anion Gap 13 (5-15); BUN 7 mg/dL (4-19); BUN/Creat Ratio 9.1 RATIO (10-20); Calcium,Total 9.2 mg/dL (7.6-11.0); Carbon Dioxide 19.7 mmol/L (21.0-32.0); Chloride 105 mmol/L (98-108); Estimated Creatinine Clearance 86.11 ml/min (50-250); Glucose 123 mg/dL (70-99); Potassium 4.8 mmol/L (3.3-5.1)
[2025-03-08] MEDS: Senna/Docusate Sodium 1 Tablet 2 TABLET PO (09:41)
[2025-03-08 09:48] VITALS: BP 111/76; PULSE 90; RESP 16; TEMP 36.5; O2SAT 94
--- NOTE | 2025-03-08 11:00 | CASEMGMT ---
Noted no therapy recommended. No CM c/s. Plan for dc home when medically ready.
--- NOTE | 2025-03-08 12:02 | CASEMGMT ---
RN CM into pt room, pt lying in chair in no distress with at bedside. Pt denies any homegoing needs. Pt cleared by therapy. Pt ready for dc.
--- NOTE | 2025-03-08 14:09 | PHA.DC_ITS ---
Pharmacy [facility] Counseling Pharmacy Service has performed discharge medication reconciliation and counseling for this patient. 1. ACETAMINOPHEN 500MG PO Q6 2. MELOXICAM 15MG PO DAILY 3. NORCO 5/325MG PO Q6H PRN PAIN 4. SENNA/DOCUSATE 2T PO BID PRN CONSTIPATION 5. METHOCARBAMOL CHANGED TO 750MG PO TID PRN MUSCLE PAIN/SPASMS 6. HOLD CONTRAVE WHILE TAKING NORCO The patient's discharge medication list was reviewed for discrepancies and discrepancies were resolved. The patient was counseled on the following discharge medications and changes in medications for homegoing were reviewed. The Reason for Use, instructions for use, and potential side effects were reviewed for all new medications. The patient's questions regarding all of their medications were answered. The patient was able to verbally demonstrate an understanding of their discharge medications. Medications at Discharge Home Medications L.acidophilus-L.plantarum-L.rhamnosus 1 billion cell capsule,delay rel (Probiotic Pearls Women's) 1 cap PO DAILY 01/16/22 Synthroid 100 mcg tablet (levothyroxine) 100 mcg PO DAILY #90 tabs 12/06/24 naltrexone 8 mg-bupropion 90 mg tablet,extended release (Contrave) 2 tab PO BID 3 months #360 tabs 01/25/25 Held on 03/08/25. Instructions: Resume on 03/15/25. hold until done taking hydrocodone-acetaminophen atogepant 60 mg tablet (Qulipta) 60 mg PO DAILY 02/17/25 rimegepant 75 mg disintegrating tablet (Nurtec ODT) 75 mg PO DAILY PRN migraine 02/17/25 sertraline 100 mg tablet 100 mg PO QHS 02/17/25 acetaminophen 500 mg tablet 500 mg PO Q6H #30 tabs 03/08/25 hydrocodone-acetaminophen 5-325mg 5mg-325mg 1 tab PO Q6H PRN pain 7 days #28 tabs 03/08/25 meloxicam 15 mg tablet 15 mg PO DAILY #30 tabs 03/08/25 methocarbamol 500 mg tablet 750 mg (1.5 x 500 mg) PO TID PRN pain/spasms #60 tabs 03/08/25 sennosides 8.6 mg-docusate sodium 50 mg tablet (Stimulant Laxative Plus) 2 tab PO BID PRN constipation #14 tabs 03/08/25
[2025-03-08 14:15] VITALS: BP 103/54; PULSE 95; RESP 16; TEMP 36.9; O2SAT 94
--- NOTE | 2025-03-08 14:15 | PN_ITS ---
Subjective Subjective Patient seen and examined with her nurse by her bedside. Her was by her bedside. She had no active complaints. Pain is well controlled. Review of systems is otherwise negative. She has remained hemodynamically stable. Objective Data Objective Data Vital Signs: Vital Signs Temp Pulse Resp BP Pulse Ox O2 Del Method O2 Flow Rate 97.7 F L 90 16 111/76 94 Room Air 2 03/08/25 09:48 03/08/25 09:48 03/08/25 09:48 03/08/25 09:48 03/08/25 09:48 03/08/25 09:48 03/08/25 05:19 Oxygen Flow Rate (L/min) 2 Oxygen Delivery Method Room Air Weight: 188 lb Body Mass Index (BMI) 32.2 Intake & Output: Intake and Output for Last 24 Hours 03/06/25 03/07/25 03/08/25 23:59 23:59 23:59 Intake Total 1712 / 1712 1210 / 1210 Output Total 1270 / 1270 650 / 650 Balance 442 / 442 560 / 560 Lab / Micro Data 03/08/25 06:32 03/08/25 06:32 Labs: Laboratory Results - last 24 hr 03/08/25 06:32: WBC 13.8 H, RBC 3.99 L, Hgb 12.2, Hct 36.8 L, MCV 92.2, MCH 30.6, MCHC 33.2, RDW Std Deviation 41.6, RDW Coeff of Latosha 12.3, Plt Count 299, MPV 9.5, Immature Gran % (Auto) 0.300, Neut % (Auto) 87.4 H, Lymph % (Auto) 8.3 L, [place] % (Auto) 3.9, Eos % (Auto) 0.0, Baso % (Auto) 0.1, Absolute Neuts (auto) 12.1 H, Absolute Lymphs (auto) 1.14, Nucleated RBC % 0, Sodium 138, Potassium 4.8, Chloride 105, Carbon Dioxide 19.7 L, Anion Gap 13, BUN 7, Creatinine 0.78, Estim Creat Clear Calc 86.11, Est GFR (MDRD) Non-Af 90, BUN/Creatinine Ratio 9.1 L, Glucose 123 H, Calcium 9.2 Micro: Microbiology 02/23/25 07:12 Swab (Method) Nasal Screen MRSA/MSSA - Final Radiography Diagnostic Testing: Radiology Impression Cervical Spine X-Ray 03/07/25 12:45 IMPRESSION: As per findings. Reading Location: [facility] Cervical Spine X-Ray 03/08/25 04:50 IMPRESSION: Unremarkable spinal fusion metallic plate and screws at C4, C5 and C6 levels. Unremarkable disc spacer at C4-C5. Unremarkable disc spacer at C5-C6. Soft tissue edema and swelling, benign surgical finding. Reading Location: [place] [id number] Physical Exam Const alert, oriented x3, no apparent distress and well nourished General Appearance: cooperative and well developed HEENT head/scalp atraumatic, moist oral mucous membranes and oropharynx normal Eyes EOMs intact bilaterally Neck Neck Narrative: neck brace in situ. Intact anterior neck dressing. Lymph Lymphatic: no lymphedema noted Resp normal respiratory effort, normal air movement and clear to auscultation bilaterally Cardio regular rate, regular rhythm, S1 normal heart sound, S2 normal heart sound and no murmurs GI normal to inspection, nondistended, normoactive bowel sounds, soft to palpation, non-tender and non-distended Extremity normal capillary refill, no clubbing, cyanosis or edema and no calf tenderness General Extremity: no tenderness to palpation of joints or extremities Skin General Skin Exam: no breakdown Neuro no focal motor deficits, no sensory deficits noted and deep tendon reflexes 2+ bilaterally Motor Exam: strength 5/5 throughout and general weakness Psych thought process normal, cooperative and affect normal Appearance: appropriate Assessment & Plan Assessment/Plan (1) Cervical myelopathy with cervical radiculopathy: (2) Status post cervical spinal fusion: PLAN: Plan #Hypothyroidism * on synthroid * #Depression and anxiety: * #CALI: on CPAP qhs. #History of migraines: on rimegapant on outpatient basis. #Cervical stenosis of C4-C6 * s/p C4-C6 anterior cervical disc fusion on 03/07/2025. * management as per primary service. * #DVT prophylaxis: as per primary service. Charges/Coding Visit Charges Inpatient E&M: 00444 Subs Hosp L2
== END 2025-03-08 14:11 | disposition home or self-care (01) ==
LOC: SDC 15:19 → MS3 15:19
PROVIDERS: Student in an Organized Health Care Education/Training Program; Admitting Provider Orthopaedic Surgery Orthopaedic Surgery of the Spine; PCP Nurse Practitioner Family; Referring Provider Orthopaedic Surgery Orthopaedic Surgery of the Spine; Visit Provider Orthopaedic Surgery Orthopaedic Surgery of the Spine
PROC: (CPT 22551; principal; 2025-03-07 11:30)
DX: M48.02 Spinal stenosis, cervical region (principal); G99.2 Myelopathy in diseases classified elsewhere; G43.909 Migraine, unspecified, not intractable, without status migrainosus; Z79.890 Hormone replacement therapy; Z68.31 Body mass index [BMI] 31.0-31.9, adult; R01.1 Cardiac murmur, unspecified; M43.12 Spondylolisthesis, cervical region; E03.9 Hypothyroidism, unspecified; E66.9 Obesity, unspecified; Z86.711 Personal history of pulmonary embolism; G47.33 Obstructive sleep apnea (adult) (pediatric); M54.12 Radiculopathy, cervical region; M50.021 Cervical disc disorder at C4-C5 level with myelopathy; F32.A Depression, unspecified; F41.9 Anxiety disorder, unspecified; Z79.899 Other long term (current) drug therapy; J45.909 Unspecified asthma, uncomplicated; K21.9 Gastro-esophageal reflux disease without esophagitis
CPT/HCPCS: 22551; 22845; 22552; 20931; 00670; 36415; 72040; 76000; 80048; 82962; 83036; 83735; 85025; 86703; 86706; 86708; 86803; 86850; 86870; 86900; 86901; 86902; 86920; 86922; 87081; 93005; 96365; 96366; 96375; 96376; 97161; 97165; 99221; A4648; C1713; A4216; G0378; J2405; J3475

== ENCOUNTER → 2025-05-13 | Outpatient (CLI) | payer OTHER, SELFPAY ==
[2025-05-13 12:03] LABS: Cholesterol 227 mg/dL (<=200); Low Density Lipoprotein Calc. 137 mg/dL; Triglycerides 189 mg/dL; Very Low Density Lipoprotein 38 mg/dL (5-40); cholesterol:hdl ratio screen 4.01
[2025-05-13 12:24] LABS: AST(SGOT) 20 U/L (<=31); Alanine Aminotransfer ALT/SGPT 15 U/L (<=34); Albumin, Serum 4.3 g/dL (3.5-5.0); Alkaline Phosphatase 100 U/L (35-104); Anion Gap 12 (5-15); BUN 14 mg/dL (4-19); BUN/Creat Ratio 17.8 RATIO (10-20); Calcium,Total 9.8 mg/dL (7.6-11.0); Carbon Dioxide 22.1 mmol/L (21.0-32.0); Chloride 105 mmol/L (98-108); Globulin 2.9 g/dL (2.2-4.2); Glucose 93 mg/dL (70-99); Potassium 4.3 mmol/L (3.3-5.1)
== END | disposition home or self-care (01) ==
LOC: LAB 10:28
PROVIDERS: PCP Nurse Practitioner Family; Referring Provider Nurse Practitioner Family; Visit Provider Nurse Practitioner Family
DX: Z13.220 Encounter for screening for lipoid disorders (principal); Z13.1 Encounter for screening for diabetes mellitus; E03.9 Hypothyroidism, unspecified
CPT/HCPCS: 36415; 80053; 80061; 83036; 84439; 84443

== ENCOUNTER → 2025-06-30 | Outpatient (CLI) | payer OTHER, SELFPAY ==
--- NOTE | 2025-06-30 06:49 | MRI_ITS ---
PROCEDURE: SPINE THORACIC (ROUTINE) 06/30/2025 REASON FOR EXAM: PAIN X1 YEAR WORSENING, PAIN ON RIGHT, MIDTHORACIC TECHNIQUE: Procedure Code: MRISPT Modality: MR Procedure: SPINE THORACIC (ROUTINE) Multiplanar and multisequence images were obtained. CONTRAST: None. COMPARISON: None available. FINDINGS: The normal thoracic kyphosis is maintained. The thoracic vertebral bodies are normal in height. The thoracic vertebral bodies are normal in alignment. The thoracic bone marrow signal is within normal limits. There is no evidence of thoracic spinal cord signal abnormality. No high-grade spinal canal or neural foraminal stenosis in the thoracic spine. C7-T1: Bilateral perineural cysts. T1-T2: Left perineural cyst. T5-T6: Left perineural cyst. T8-T9: Left perineural cyst. T10-T11: Right perineural cyst. MRI/Spine Thoracic (Routine) IMPRESSION: No thoracic spinal cord signal abnormality. No high-grade spinal canal or neur al foraminal stenosis in the thoracic spine. Multiple perineural cysts. Reading Location: [id number]
--- OUTSIDE RECORDS SUMMARY | 2025-06-30 07:47 | XMS RPT_ITS | CCD ---
Author Organization [facility] Care Team Providers Care Sweet Dough Mixer Name Role Phone Lashae Jameshleen Unavailable Sofya Chandler Unavailable Unavailable Slarb, Elisabet Unavailable Unavailable Ciesa, Roxy Unavailable Unavailable Unavailable Kady Thrasher Unavailable Unavailable Sofya Chandler Unavailable Unavailable Jewell Roa Unavailable Unavailable Josseline Brown Unavailable Unavailable Edilberto Brown Unavailable Unavailable [facility] with [facility], [facility] Unavailable Raj Albright Unavailable Heidy Hylton Unavailable Unavailable Ever Raygoza D.O. Unavailable Unavailable Bautista Lopez Unavailable Terry Hurley Unavailable Jacob ABADGloria Unavailable Ever Raygoza D.O. Unavailable Unavailable Bautista Lopez Unavailable Xavi ABAD , Dr. Terry Rock Unavailab le Merged with [facility], [facility] Unavailable Dr. Raj Albright Unavailable [phone] Sofya Chandler RN Unavailable Unavailable Shannan DE OLIVEIRA, Elisabet Unavailable Unavailable Heidy Hylton LPN Unavailable Unavailable Edilberto Brown LPN Unavailable Unavailable Ciesdestin BUSCH, Roxy Unavailable Jewell Roa RN Unavailable Unavailable Unavailable Unavailable Lida Roman CGC Unavailable Unavailable Terrell ESTRADA, [facility] Primary Care Provider UnavailZackary Phillips MD Unavailable Kevin [facility], Josseline Unavailable Unavailable Dr. Gloria James Primary Care Provider [phone] Dr. Gloria James Referring Provider [phone] Dr. Oleksandr Holbrook Attending Provider [phone] Yusef, Dr. Leggett Primary Care Provider [phone] Yusef, Dr. Leggett Referring Provider [phone] Subhash GROUNDSKEEPING MAINTENANCE WORKER, GROUNDSKEEPING MAINTENANCE WORKER-C Joceline Attending Provider Gloria James DO Unavailable Miranda Beck Unavailable Yusef, Dr. Leggett Attending Provider [phone] Cicolea Miranda Unavailable Yusef, Dr. Leggett Primary Care Provider [phone] 0) Yusef, Dr. Leggett Referring Provider [phone] [place], [place] Suze Attending Provider Unavailab constantino Holbrook, Dr. Leggett Primary Care Provider [phone] [phone]) Yusef, Dr. Leggett Referring Provider [phone] Yusef, Dr. Leggett Attending Provider [phone] Yusef, Dr. Leggett Primary Care Provider 1(33 0) Yusef, Dr. Leggett Attending Provider [phone] Yusef, Dr. Leggett Referring Provider [phone] Yusef, Dr. Leggett Primary Care Provider [phone] [phone] Yusef, Dr. Leggett Attending Provider [phone] Yusef, Dr. Leggett Referring Provider [phone])2 Yusef, Dr. Leggett Referring Provider [phone] Subhash GROUNDSKEEPING MAINTENANCE WORKER, GROUNDSKEEPING MAINTENANCE WORKER-C Joceline Attending Provider Dr. Oleksandr Holbrook Primary Care Provider [phone] Yusef, Dr. Leggett Attending Provider [phone] Dr. Marcos Monroy Attending Provider [phone] Yanira, Dr. Pina Attending Provider [phone] Yusef, Dr. Leggett Primary Care Provider 1(33 0) Yusef, Dr. Leggett Attending Provider [phone] Yusef, Dr. Leggett Referring Provider [phone])2 Dr. Marcos Monroy Attending Provider [phone] Yanira, Dr. Pina Attending Provider [phone] Yusef, Dr. Leggett Primary Care Provider [phone] [phone] Yusef, Dr. Leggett Attending Provider [phone] Yusef, Dr. Leggett Referring Provider [phone] Yusef ESTRADA, Dr. Leggett Primary Care Provider Yusef ESTRADA, Dr. Leggett Referring Provider [phone] [place] Attending Provider Dr. Yovani Doyle MD Attending Provider [place] Referring Provider Dr. Oleksandr Holbrook MD Primary Care Provider [place] Attending Provider Dr. Oleksandr Holbrook MD Referring Provider [phone] Dr. Marcos Monroy MD Attending Provider Mary GROUNDSKEEPING MAINTENANCE WORKER-C, Heidy Primary Care Provider Kristie ESTRADA, Dr. Solano Attending Provider Dr. Marcos Monroy MD Referring Provider Porfirio ESTRADA, Dr. Rodríguez Other Provider [phone] Porfirio ESTRADA, Dr. Rodríguez Admit Provider Edgardo ESTRADA, Dr. Zenaida Mcnally Other Provider Eyad ESTRADA, Dr. Best Attending Provider Eyad ESTRADA, Dr. Best Other Provider Yusef ESTRADA, Dr. Leggett Primary Care Physician [place] Attending Physician Porfirio ESTRADA, Dr. Rodríguez Attending Physician Tannhof GROUNDSKEEPING MAINTENANCE WORKER-C, Platinum Primary Care Physician Kristie ESTRADA, Dr. Solano Attending Physician Porfirio ESTRADA, Dr. Rodríguez Nurse Practitioner Porfirio ESTRADA, Dr. Rodríguez Admitting Physician Edgardo ESTRADA, Dr. Zenaida Mcnally Nurse Practitioner Eyad ESTRADA, Dr. Best Attending Physician Eyad ESTRADA, Dr. Best Nurse Practitioner Edgardo ESTRADA, Dr. Zenaida Mcnally Attending Physician Yanira ESTRADA, Dr. Pina Attending Physician Yusef ESTRADA, Dr. Leggett Referring Provider [place] Attending Physician [place] Referring Provider Subhash GROUNDSKEEPING MAINTENANCE WORKER, Joceline Attending Unavailable Oleghe, Efewongbe Referring Unavailable Tannhof, Heidy Primary Care Unavailable Porfirio Marcos Admitting Unavailable Porfirio, Marcos Referring Unavailable Estephania Castano Attending Unavailable Estephania Castano Consulting Unavailable Tannhof, Heidy Primary Care Unavailable Porfirio Marcos Consulting Unavailable Zenaida Reynoso Attending Unavailable Zenaida Reynoso Consulting Unavailable Oleghe, Efewongbe Primary Care Unavailable Oleghe, Efewongbe Referring Unavailable Elba Zapata Attending Unavailable MonroyChristineag Attending Unavailable Oleghe, Efewongbe Referring Unavailable Tannhof, Heidy Primary Care Unavailable Monroy, Marcos Referring Unavailable Tannhof, Heidy Primary Care Unavailable Nagajothi, Nagapradee Attending Unavailabl e Monroy, Marcos Referring Unavailable Tannhof, Heidy Primary Care Unavailable Monroy, Marcos Attending Unavailable Monroy, Marcos Consulting Unavailable Oleghe, Efewongbe Primary Care Unavailable Oleghe, Efewongbe Referring Unavailable Benny, Elba Attending Unavailable Oleghe, Efewongbe Referring Unavailable Benny, Elba Attending Unavailable Tannhof, Heidy Primary Care Unavailable Tannhof, Heidy Primary Care Unavailable Yanira, Waverly Attending Unavailable Oleghe, Efewongbe Referring Unavailable Benny, Elba Attending Unavailable Tannhof, Heidy Primary Care Unavailable Oleghe, Efewongbe Primary Care Unavailable Yanira, Waverly Attending Unavailable Oleghe, Efewongbe Primary Care Unavailable Oleghe, Efewongbe Referring Unavailable Friend, Adan Attending Unavailable Friend, Adan Consulting Unavailable Oleghe, Efewongbe Primary Care Unavailable Oleghe, Efewongbe Referring Unavailable Friend, Adan Attending Unavailable Tannhof, Heidy Primary Care Unavailable Yanira, Yovani Attending Unavailable Monroy, Marcos Admitting Unavailable Monroy, Marcos Referring Unavailable Mnoroy, Marcos Attending Unavailable Koram, Zenaida Dali Consulting Unavailable Tannhof, Heidy Primary Care Unavailable Benny, Elba Attending Unavailable Benny, Elba Referring Unavailable Tannhof, Heidy Primary Care Unavailable Tannhof, Heidy Referring Unavailable Tannhof, Heidy Attending Unavailable Tannhof, Heidy Primary Care Unavailable Oleghe, Efewongbe Primary Care Unavailable Benny, Elba Referring Unavailable Benny, Elba Attending Unavailable Allergies Allergy Classification Reported Allergen(s) Allergy Type Date of Onset Reaction(s) Facility (20 sources) Immitrex- local reaction allergy to substance [facility] Work Phone: (20 sources) pseudophedrin- palpitations, hyper allergy to substance [facility] Work Phone: (20 sources) Pseudoephedrine Drug Allergy 08-30-19 Other [facility] Comment on above: Heart palpitations, insomnia (20 sources) SUMAtriptan Drug Allergy 08-30-19 Swelling [facility] (1 source) Pseudoephedrine Drug Allergy 05-17-20 [facility] (1 source) SUMAtriptan Drug Allergy 05-17-20 [facility] Medications Current Medications Medication Drug Class(es) Dates Sig (Normalized) Sig (Original) Atogepant (6 sources) Start: 02-17-2025 take 1 tablet by jillian th once daily Start: 02-17-2025 take 1 tablet by jillian th once daily Atogepant (Qulipta) 60 mg tablet Active 60 mg PO DAILY February 17, 2025 12:00am L. Acidoph-L. Plantar-L. Rha mn ([facility]) 1 billion cell capsule,delayed release(DR/EC) (20 sources) Start: 01-16-2022 take 1 capsule by mo ut once daily Start: 01-16-2022 take 1 capsule by mo ut once daily L. Acidoph-L. Plantar-L. Rhamn ([facility]) 1 billion cell capsule,delayed release(DR/EC) Active 1 NMA PO DAILY January 16, 2022 12:00am Start: 01-16-2022 L. Acidoph-L. Plantar-L. Rhamn ([facility]) 1 billion cell capsule,delayed release(DR/EC) Active CAP PO January 15, 2022 11:00pm Start: 01-16-2022 L. Acidoph-L. Plantar-L. Rhamn ([facility]) 1 billion cell capsule,delayed release(DR/EC) Active CAP PO January 16, 2022 12:00am Multivitamin preparation (11 sources) Start: 09-01-2022 take 1 tablet by mouth once daily Multivitamin Active 1 TABLET PO DAILY September 01, 2022 1:00am Start: 09-01-2022 take 1 tablet by jillian th once daily Multivitamin Active 1 TABLET PO DAILY September 01, 2022 12:00am rimegepant 75 mg disintegrat ing oral tablet (6 sources) Start: 02-17-2025 take 1 tablet by jillian th once daily as needed Completed/Discontinued Medications Medication Drug Class(es) Dates Sig (Normalized) Sig (Original) acetaminophen 500 mg oral tablet (5 sources) Start: 03-08-2025 End: 03-23-2025 take 1 tablet by mouth every six hours Acetaminophen 500 mg Tablet Discontinued 500 mg PO EVERY 6 HOURS 30 0 March 08, 2025 7:30am March 23, 2025 10:04am acetaminophen 325 mg / HYDROcodone bitartrate 5 mg oral tablet (20 sources) Opioid Agonist Start: 03-08-2025 End: 03-23-2025 Hydrocodone-Acetami nophen 5-325 mg Tablet Discontinued 1 {tbl} PO EVERY 6 HOURS as needed for pain 28 7 0 March 08, 2025 March 23, 2025 10:03am Status post cervical spinal arthrodesis Arthrodesis status Start: 04-26-2013 End: 12-21-2013 take 1 tablet by mouth three times daily as needed HYDROCODONE-ACETAMINOPHEN, 5-500MG (Oral Tablet) 1 Tablet tid prn for 0 days Quantity: 90 {Tablet} Refills: 0 Ordered: 21-Dec-2013 Sofia Woodson CMA Start : 26-Apr-2013 End : 21-Dec-2013 Inactive Comments: tavares Start: 04-26-2013 End: 12-21-2013 take 1 tablet by mouth three times daily as needed HYDROCODONE-ACETAMINOPHEN, 5-500MG (Oral Tablet) 1 Tablet tid prn for 0 days Quantity: 90 {Tablet} Refills: 0 Ordered: 21-Dec-2013 Sofia Woodson CMA Start : 26-Apr-2013 End : 21-Dec-2013 Inactive Comments: tavares Start: 04-26-2013 End: 12-21-2013 take 1 tablet by mouth three times daily as needed HYDROCODONE-ACETAMINOPHEN, 5-500MG (Oral Tablet) 1 Tablet tid prn for 0 days Quantity: 90 {Tablet} Refills: 0 Ordered: 21-Dec-2013 Sofia Woodson Start : 26-Apr-2013 End : 21-Dec-2013 Inactive Comments: tavares Start: 10-03-2011 End: 10-03-2011 take 1 tablet by mouth every six hours as needed VICODIN, 5-500MG (Oral Tablet) 1 Tablet q 6 hours prn for 0 days Quantity: 40 {Tablet} Refills: 0 Ordered: 03-Oct-2011 Trina Castelan Start : 03-Oct-2011 End : 03-Oct-2011 Discontinued Comment on above: tavares [id number] actuat albuterol 0.09 mg/actuat metered dose inhaler (20 sources) beta2-Adrenergic Agonist Start: 04-26-2013 End: 04-26-2013 PROAIR HFA, 108 (90 Base)MCG/ACT (Inhalation Aerosol Solution) 2 puffs Destrehan(s) q am for 0 days Quantity: 1 {Aerosol_Soln} Refills: 3 Ordered: 26-Apr-2013 Rich DO Evangelina A Start : 26-Apr-2013 End : 26-Apr-2013 Discontinued Start: 04-26-2013 End: 04-26-2013 PROAIR HFA, 108 (90 Base)MCG /ACT (Inhalation Aerosol Solution) 2 puffs Destrehan(s) q am for 0 days Quantity: 1 {Aerosol_Soln} Refills: 3 Ordered: 26-Apr-2013 Fast , Evangelina A Start : 26-Apr-2013 End : 26-Apr-2013 Discontinued Start: 01-25-2010 End: 05-28-2010 PROVENTIL HFA, 108 (90 Base) MCG/ACT (Inhalation Aerosol Solution) 2 (two) Aerosol Soln qid prn for 30 days Quantity: 1 {Aerosol_Soln} Refills: 1 Ordered: 28-May-2010 Trina Castelan Start : 25-Jan-2010 End : 28-May-2010 Inactive Start: 01-25-2010 End: 05-28-2010 PROVENTIL HFA, 108 (90 Base) MCG/ACT (Inhalation Aerosol Solution) 2 (two) Aerosol Soln qid prn for 30 days Quantity: 1 {Aerosol_Soln} Refills: 1 Ordered: 28-May-2010 Trina Castelan Start : 25-Jan-2010 End : 28-May-2010 Inactive amitriptyline hydrochloride 10 mg oral tablet (20 sources) Tricyclic Antidepressant Start: 10-03-2011 End: 10-03-2011 AMITRIPTYLINE HCL, 10MG (Oral Tablet) 1 Tablet qhd prn for 0 days Quantity: 30 {Tablet} Refills: 0 Ordered: 03-Oct-2011 Trina Castelan Start : 03-Oct-2011 End : 03-Oct-2011 Discontinued apixaban 5 mg oral tablet (20 sources) Factor Xa Inhibitor Start: 12-07-2023 End: 02-17-2025 take 1 tablet by mouth twice daily Apixaban (Eliquis) 5 mg tablet Discontinued 5 mg PO TWICE A DAY 180 90 1 December 08, 2023 12:27pm February 17, 2025 10:16am Start: 11-16-2023 End: 12-07-2023 take 2 tablets by mouth twice daily, then take 1 tablet by mouth twice daily Apixaban (Eliquis) 5 mg tablet Discontinued 5 mg PO TWICE A DAY 74 0 November 16, 2023 12:00am December 07, 2023 5:19pm 10 mg twice a day for the first week. Then 5 mg twice a day. baclofen 10 mg oral tablet (20 sources) gamma-Aminobutyric Acid-ergic Agonist Start: 07-02-2021 End: 02-21-2022 take 1 tablet by mouth twice daily as needed for muscle spasms Baclofen 10 mg tablet Discontinued 10 mg PO TWICE A DAY as needed for muscle spasm 60 0 September 30, 2021 11:49am February 21, 2022 10:02am 120 actuat beclomethasone dipropionate 0.08 mg/actuat metered dose inhaler (20 sources) Corticosteroid Start: 01-17-2014 End: 11-21-2014 QVAR, 80MCG/ACT (Inhalation Aerosol Solution) 2 (two) Aerosol Soln Aerosol Soln puffs q am for 0 days Quantity: 1 {Inhaler} Refills: 3 Ordered: 21-Nov-2014 Trina Castelan Start : 17-Jan-2014 End : 21-Nov-2014 Discontinued benzoyl peroxide 0.05 mg/mg / clindamycin 0.01 mg/mg topical gel (20 sources) Lincosamide Antibacterial Start: 02-11-2008 CLINDAMYCIN PHOS-BENZOYL PEROX, 1-5% (External Gel) qhs Gel prn for 0 days Quantity: 30 {Gel} Refills: 3 Ordered: 14-Sep-2009 Soco Lemos Start : 11-Feb-2008 Inactive bifidobacterium animalis [id number] unt / lactobacillus acidophilus [id number] unt oral capsule (20 sources) Start: 02-20-2016 End: 05-27-2019 take 1 capsule by mouth once daily Probiotic Oral Capsule 1 (one) Capsule daily for 30 days Quantity: 30 {Capsule} Refills: 0 Ordered: 06-Jun-2019 Gloria James DO, DO, Kathleen Start : 27-Apr-2019 End : 27-May-2019 Inactive Start: 02-20-2016 End: 04-27-2019 take 1 capsule by mouth once daily Probiotic Oral Capsule 1 (one) Capsule daily for 30 days Quantity: 30 {Capsule} Refills: 0 Ordered: 27-Apr-2019 Gloria James DO, DO, Kathleen Start : 27-Apr-2019 Active 12 hr buPROPion hydrochloride 90 mg / naltrexone hydrochloride 8 mg extended release oral tablet (20 sources) Opioid Antagonist, Aminoketone Start: 05-23-2024 End: 03-23-2025 Naltrexone-Bupropion (Contra ve) 8-90 mg tablet extended release Discontinued 2 {tbl} PO TWICE A DAY 360 90 0 January 25, 2025 7:11pm April 24, 2025 12:00am March 23, 2025 10:04am On Hold: Resume on 03/15/25. hold until done taking hydrocodone-acetaminophen Start: 11-23-2023 End: 05-23-2024 Naltrexone-Bupropion (Contra ve) 8-90 mg tablet extended release Discontinued 2 {tbl} PO every day in the morning and in the evening 360 90 1 May 18, 2024 9:20am May 23, 2024 1:49pm Start: 09-29-2023 End: 11-23-2023 Naltrexone-Bupropion (Contra ve) 8-90 mg tablet extended release Discontinued 1 {tbl} PO TWICE A DAY 60 1 September 29, 2023 9:37am November 23, 2023 9:36am Start: 08-24-2023 End: 09-29-2023 Naltrexone-Bupropion (Contra ve) 8-90 mg tablet extended release Discontinued 1 {tbl} PO EVERY MORNING 60 0 August 24, 2023 1:00am September 29, 2023 9:38am Take daily x 1 week then increase to BID cholecalciferol 1.25 mg oral capsule (20 sources) Vitamin D Start: 09-01-2022 End: 11-23-2023 take 1 capsule by mouth every week Cholecalciferol (Vitamin D3) 1,250 mcg (50,000 unit) capsule Discontinued 1250 ug PO EVERY WEEK 20 2 September 01, 2022 1:00am November 23, 2023 9:14am Start: 08-30-2021 End: 09-01-2022 take 1 capsule by mouth once daily Cholecalciferol (Vitamin D3) 125 mcg (5,000 unit) capsule Discontinued 125 ug PO DAILY August 30, 2021 1:00am September 01, 2022 10:08pm Start: 02-20-2016 End: 04-27-2019 take 1 capsule by mouth once daily Vitamin D3 2000 UNIT Oral Capsule 1 (one) Capsule Capsule daily for 0 days Quantity: 30 {Capsule} Refills: 0 Ordered: 27-Apr-2019 Elisabet Campbell LPN Start : 20-Feb-2016 End : 27-Apr-2019 Inactive Start: 07-25-2015 End: 02-20-2016 take 2 tablets by mouth once daily Vitamin D3 2000 UNIT Oral Tablet 2 (two) Tablet Tablet qd for 0 days Quantity: 60 {Tablet} Refills: 0 Ordered: 20-Feb-2016 Elisabet Campbell LPN Start : 25-Jul-2015 End : 20-Feb-2016 Discontinued ciclesonide 0.05 mg/actuat metered dose nasal spray (20 sources) Start: 02-05-2009 OMNARIS, 50MCG/ACT (Nasal Suspension) 2 (two) Suspension Daily for 0 days Refills: 0 Ordered: 14-Sep-2009 Soco Lemos Start : 05-Feb-2009 Inactive citalopram 20 mg oral tablet (20 sources) Serotonin Reuptake Inhibitor Start: 01-17-2014 End: 01-17-2014 take 1 tablet by mouth once daily CELEXA, 20MG (Oral Tablet) 1 (one) Tablet qd for 0 days Quantity: 90 {Tablet} Refills: 0 Ordered: 17-Jan-2014 Evangelina Villanueva DO Start : 17-Jan-2014 End : 17-Jan-2014 Discontinued desonide 0.0005 mg/mg topical ointment (20 sources) Corticosteroid Start: 05-13-2019 End: 06-10-2019 Desonide 0.05 % External Ointment 1 (one) Application bid for 0 days Quantity: 1 {Tube} Refills: 0 Ordered: 10-Jun-2019 Jewell Roa RN Start : 13-May-2019 End : 10-Jun-2019 Inactive desoximetasone 2.5 mg/ml topical cream (20 sources) Corticosteroid Start: 01-04-2010 End: 05-28-2010 TOPICORT, 0.25% (External Cream) 1 (one) Cream bid for 0 days Quantity: 60 {Cream} Refills: 0 Ordered: 28-May-2010 YingTrina nye Start : 04-Jan-2010 End : 28-May-2010 Inactive docusate sodium 50 mg / sennosides, nursing home 8.6 mg oral tablet (5 sources) Start: 03-08-2025 End: 03-23-2025 Sennosides-Docusa te Sodium (Stimulant Laxative Plus) 8.6-50 mg Tablet Discontinued 2 {tbl} PO TWICE A DAY as needed for constipation 14 0 March 08, 2025 7:31am March 23, 2025 10:04am doxycycline hyclate 100 mg oral capsule (20 sources) Tetracycline-class Drug Start: 06-10-2019 End: 06-27-2019 take 1 capsule by mouth twice daily Doxycycline Hyclate 100 MG Oral Capsule 1 (one) Capsule bid for 0 days Quantity: 20 {Capsule} Refills: 0 Ordered: 27-Jun-2019 Josseline Brown CMA Start : 10-Jun-2019 End : 27-Jun-2019 Inactive DULoxetine 30 mg delayed release oral capsule (20 sources) Serotonin and Norepinephrine Reuptake Inhibitor Start: 06-27-2019 End: 06-27-2019 take 1 capsule by mouth once daily DULoxetine HCl 30 MG Oral Capsule Delayed Release Particles 1 (one) Capsule qd for 0 days Quantity: 30 {Capsule} Refills: 1 Ordered: 27-Jun-2019 Gloria James DO, DO, Kathleen Start : 27-Jun-2019 End : 27-Jun-2019 Discontinued Comments: insominia Start: 04-27-2019 End: 04-27-2019 take 1 capsule by mouth once daily DULoxetine HCl 60 MG Oral Capsule Delayed Release Particles 1 (one) Capsule qd for 0 days Quantity: 30 {Capsule} Refills: 2 Ordered: 27-Apr-2019 Gloria James DO, DO, Kathleen Start : 27-Apr-2019 End : 27-Apr-2019 Discontinued Comments: pt will start at 30mg Start: 04-27-2019 take 1 capsule by mo [facility] once daily DULoxetine HCl 30 MG Oral Capsule Delayed Release Particles 1 (one) Capsule qd for 0 days Quantity: 30 {Capsule} Refills: 1 Ordered: 27-Apr-2019 Kady Thrasher LPN Start : 27-Apr-2019 Active Comment on above: pt will start at 30m g joyce escitalopram 10 mg oral tablet (20 sources) Serotonin Reuptake Inhibitor Start: 8 End: 8 take 1 tablet by mouth once daily LEXAPRO, 10MG (Oral Tablet) 1 (one) Tablet qd for 0 days Quantity: 30 {Tablet} Refills: 3 Ordered: 11-Feb-2008 Evangelina Villanueva DO Start : 11-Feb-2008 End : 11-Feb-2008 Discontinued estradiol 0.5 mg oral tablet (20 sources) Estrogen Start: 1 End: 4 take 1 tablet by mouth once daily Estradiol (Estrace) 0.5 mg tablet Discontinued 0.5 mg PO DAILY July 02, 2021 1:00am February 24, 2024 9:14am off 5 days; repeat cycle Start: 08-22-2020 End: 07-02-2021 Estradiol (Estrace) 0.01 % ( 0.1 mg/gram) cream Discontinued 1 g VAGINAL EVERY WEEK August 22, 2020 1:00am July 02, 2021 2:10pm Start: 04-27-2019 End: 05-27-2019 apply 1 dose transdermal route every week Estradiol 0.1 MG/24HR Transdermal Patch Weekly 1 (one) Patch weekly for 30 days Quantity: 4 {Patch} Refills: 0 Ordered: 06-Jun-2019 Gloria James DO, DO, Kathleen Start : 27-Apr-2019 End : 27-May-2019 Inactive 120 actuat fluticasone propionate 0.11 mg/actuat metered dose inhaler (20 sources) Corticosteroid Start: 04-26-2013 End: 04-26-2013 FLOVENT HFA, 110MCG/ACT (Inhalation Aerosol) 2 puffs Aerosol BID for 0 days Quantity: 1 {Aerosol} Refills: 3 Ordered: 26-Apr-2013 Evangelina Villanueva DO Start : 26-Apr-2013 End : 26-Apr-2013 Discontinued Comments: rinse mouth after use Comment on above: rinse mouth after us e levothyroxine sodium 0.1 mg oral tablet (20 sources) l-Thyroxine Start: 05-20-2023 End: 12-06-2024 take 1 tablet by mouth once daily Levothyroxine (Synthroid) 100 mcg tablet Discontinued 100 ug PO DAILY 90 2 March 09, 2024 1:37pm December 06, 2024 12:50pm Start: 09-01-2022 End: 05-20-2023 Levothyroxine (Synthroid) 10 0 mcg tablet Discontinued 100 ug PO DAILY 60 2 March 26, 2023 11:45am May 20, 2023 11:50am Take 6 days a week. Start: 08-21-2022 End: 09-01-2022 take 1 tablet by mouth six times weekly Levothyroxine 100 mcg tablet Discontinued 100 ug PO DAILY 30 August 21, 2022 2:29pm September 01, 2022 9:39am Take 6 days weekly. Start: 02-21-2022 End: 08-21-2022 take 1 tablet by mouth six times weekly Levothyroxine 112 mcg tablet Discontinued 112 ug PO DAILY 60 July 10, 2022 12:51pm August 21, 2022 2:29pm Take 6 days weekly. Start: 01-01-2022 take 1 tablet by jillian th once daily, then take 0.5 tablet by mouth once daily Synthroid 137 MCG Oral Tablet 1 Tablet daily except 1/2 tab one day a week for 30 days Quantity: 30 {Tablet} Refills: 3 Ordered: 01-Jan-2022 Gloria James DO, DO, Kathleen Start : 01-Jan-2022 Active Dispense as Written Start: 12-17-2021 End: 02-21-2022 take 1 tablet by mouth once daily Levothyroxine 125 mcg tablet Discontinued 125 ug PO DAILY 60 1 December 17, 2021 1:27pm December 17, 2021 1:43pm Start: 05-06-2021 End: 12-17-2021 take 1 tablet by mouth once daily Levothyroxine (Synthroid) 137 mcg tablet Discontinued 137 ug PO DAILY July 02, 2021 1:00am December 17, 2021 1:28pm Start: 11-30-2020 take 1 tablet by jillian th once daily Synthroid 137 MCG Oral Tablet 1 Tablet daily for 30 days Quantity: 30 {Tablet} Refills: 3 Ordered: 30-Nov-2020 Gloria James DO, DO, Kathleen Start : 30-Nov-2020 Active Dispense as Written Start: 04-19-2021 take 1 tablet by jillian th once daily Synthroid 137 MCG Oral Tablet 1 Tablet daily for 30 days Quantity: 30 {Tablet} Refills: 3 Ordered: 22-Oct-2020 Gloria James DO, DO, Kathleen Start : 22-Oct-2020 Active Dispense as Written Start: 07-20-2020 End: 07-02-2021 take 1 tablet by mouth once daily Levothyroxine (Synthroid) 150 mcg tablet Discontinued 150 ug PO DAILY August 22, 2020 1:00am July 02, 2021 2:11pm Start: 07-16-2020 take 1 tablet by jillian th once daily, then take 0.5 tablet by mouth Synthroid 125 MCG Oral Tablet 1 Tablet qd and 1/2 pill on Thursday for 30 days Quantity: 30 {Tablet} Refills: 0 Ordered: 16-Jul-2020 Gloria James DO, DO, Kathleen Start : 16-Jul-2020 Active Dispense as Written Comments: ARIK[facility]ED APPT BEFORE ANY REFILLS Start: 01-26-2020 take 1 tablet by jillian th once daily, then take 0.5 tablet by mouth Synthroid 125 MCG Oral Tablet 1 Tablet qd and 1/2 pill on Thursday for 30 days Quantity: 30 {Tablet} Refills: 4 Ordered: 26-Jan-2020 Gloria James DO, DO, Kathleen Start : 26-Jan-2020 Active Dispense as Written Comments: ARIK Start: 04-27-2019 take 1 tablet by jillian th once daily Synthroid 125 MCG Oral Tablet 1 (one) Tablet daily for 30 days Quantity: 30 {Tablet} Refills: 2 Ordered: 27-Apr-2019 Gloria James DO, DO, Kathleen Start : 27-Apr-2019 Active Dispense as Written Comments: ARIK Start: 02-20-2016 End: 04-27-2019 Synthroid 112 MCG Oral Table t 1 tab Tablet daily for 30 days Quantity: 90 {Tablet} Refills: 3 Ordered: 27-Apr-2019 Elisabet Campbell LPN Start : 20-Feb-2016 End : 27-Apr-2019 Inactive Comments: ARIK No generics End: 07-19-2007 take 1 tablet by mouth once daily UNITHROID, 100MCG (Oral Tablet) 1 tab qd for 0 days Refills: 0 Ordered: 19-Jul-2007 Trina Castelan End : 19-Jul-2007 Discontinued Comment on above: ARIK No generics ARIK DHARA APPT BEFORE ANY REFILLS lubiprostone 0.008 mg oral capsule (20 sources) Chloride Channel Activator Start: 04-26-20 13 End: 04-26-20 13 take 1 capsule by mouth once daily AMITIZA, 8MCG (Oral Capsule) 1 (one) Capsule qd for 0 days Quantity: 30 {Capsule} Refills: 3 Ordered: 26-Apr-2013 Rich Evangelina ABAD Start : 26-Apr-2013 End : 26-Apr-2013 Discontinued meloxicam 15 mg oral tablet (20 sources) Nonsteroidal Anti-inflammatory Drug Start: 03-08-20 End: 04-18-20 take 1 tablet by mouth once daily Meloxicam 15 mg Tablet Discontinued 15 mg PO DAILY 30 0 March 08, 2025 12:00am April 18, 2025 9:55am Start: 02-21-2022 End: 08-24-2023 take 1 tablet by mouth once daily Meloxicam 15 mg tablet Discontinued 15 mg PO DAILY 90 1 March 30, 2023 2:48pm August 24, 2023 10:04am metaxalone 800 mg oral tablet (20 sources) Start: 05-27-2016 End: 06-11-2016 Skelaxin 800 MG Oral Tablet 1 Tablet two times daily, as needed for 15 days Quantity: 30 {Tablet} Refills: 0 Ordered: 27-May-2016 Gerardo Ramires MD Start : 27-May-2016 End : 11-Jun-2016 Inactive Comments: Medication taken as needed. ninety Comment on above: Medication taken as needed. ninety methocarbamol 500 mg oral tablet (20 sources) Muscle Relaxant Start: 03-08-2025 End: 04-18-2025 Methocarbamol 500 mg Tablet Discontinued 750 mg PO THREE TIMES A DAY as needed for pain/spasms 60 0 March 08, 2025 7:30am April 18, 2025 9:55am Start: 10-13-2024 End: 03-08-2025 take 1 tablet by mouth three times daily as needed for pain Methocarbamol 500 mg tablet Discontinued 500 mg PO THREE TIMES A DAY as needed for pain/spasms 60 0 February 13, 2025 4:21pm March 08, 2025 7:30am methylPREDNISolone 4 mg oral tablet (20 sources) Corticosteroid Start: 05-27-2016 End: 06-02-2016 Medrol 4 MG Oral Tablet Therapy Pack 1 (one) Tab Ther Pack uad for 6 days Quantity: 1 {Packet} Refills: 0 Ordered: 27-May-2016 Gerardo Ramires MD Start : 27-May-2016 End : 02-Jun-2016 Inactive montelukast 10 mg oral tablet (15 sources) Leukotriene Receptor Antagonist Start: 12-15-2022 End: 11-23-2023 take 1 tablet by mouth at bedtime Montelukast (Singulair) 10 mg tablet Discontinued 10 mg PO AT BEDTIME 90 2 December 15, 2022 12:00am November 23, 2023 9:14am Multivitamin tablet (8 sources) Start: 09-01-2022 End: 04-08-2024 Multivitamin tablet Discontinued 1 {tbl} PO DAILY September 01, 2022 1:00am April 08, 2024 12:21pm naftifine hydrochloride 10 mg/ml topical cream (20 sources) Allylamine Antifungal Start: 03-30-2020 End: 07-02-2021 Naftifine 1 % cream Discontinued 1 NMA TOPICAL DAILY August 22, 2020 1:00am July 02, 2021 2:11pm massage into affected and surrounding skin areas omeprazole 20 mg delayed release oral tablet (20 sources) Proton Pump Inhibitor Start: 08-22-2020 End: 07-02-2021 take 1 tablet by mouth once daily Omeprazole 20 mg tablet,delayed release (DR/EC) Discontinued 20 mg PO DAILY August 22, 2020 1:00am July 02, 2021 2:12pm Start: 04-27-2019 End: 03-22-2021 take 1 capsule by mouth once daily Omeprazole 20 MG Oral Capsule Delayed Release 1 (one) Capsule daily for 30 days Quantity: 30 {Capsule} Refills: 2 Ordered: 22-Mar-2021 Josseline Brown CMA Start : 27-Apr-2019 End : 22-Mar-2021 Inactive Start: 05-29-2014 End: 11-21-2014 take 1 capsule by mouth twice daily OMEPRAZOLE, 20MG (Oral Capsule Delayed Release) 1 (one) Capsule DR Capsule DR bid for 0 days Quantity: 60 {Capsule} Refills: 3 Ordered: 21-Nov-2014 Trina Castelan Start : 29-May-2014 End : 21-Nov-2014 Discontinued Start: 02-06-2014 End: 11-21-2014 take 1 capsule by mouth once daily PRILOSEC, 20MG (Oral Capsule Delayed Release) 1 (one) Capsule DR qd for 30 days Quantity: 30 {Capsule} Refills: 0 Ordered: 21-Nov-2014 Trina Castelan Start : 06-Feb-2014 End : 21-Nov-2014 Discontinued ondansetron 4 mg disintegrating oral tablet (4 sources) Serotonin-3 Receptor Antagonist Start: 03-10-2025 End: 03-23-2025 take 1 tablet by mouth every six hours as needed for nausea Ondansetron 4 mg tablet,disintegrating Discontinued 4 mg PO EVERY 6 HOURS as needed for nausea 30 0 March 10, 2025 12:00am March 23, 2025 10:05am oseltamivir 75 mg oral capsule (20 sources) Neuraminidase Inhibitor Start: 06-13-2010 End: 01-01-2011 take 1 capsule by mouth twice daily TAMIFLU, 75MG (Oral Capsule) 1 Capsule bid for 0 days Quantity: 10 {Capsule} Refills: 0 Ordered: 01-Jan-2011 Trina Castelan Start : 13-Jun-2010 End : 01-Jan-2011 Inactive Probiotic Oral Capsule (11 sources) Start: 04-27-2019 End: 05-27-2019 take 1 capsule by mouth once daily Probiotic Oral Capsule 1 (one) Capsule daily for 30 days Quantity: 30 {Capsule} Refills: 0 Ordered: 06-Jun-2019 Gloria James DO, DO, Kathleen Start : 27-Apr-2019 End : 27-May-2019 Inactive Probiotic Pearls Advantage Oral Capsule (11 sources) Start: 02-20-2016 End: 04-27-2019 take 1 capsule by mouth once daily Probiotic Pearls Advantage Oral Capsule 1 (one) Capsule Capsule daily for 0 days Quantity: 30 {Capsule} Refills: 0 Ordered: 27-Apr-2019 Elisabet Campbell LPN Start : 20-Feb-2016 End : 27-Apr-2019 Inactive 24 hr propranolol hydrochloride 60 mg extended release oral capsule (20 sources) beta-Adrenergic Odalis Start: 05-18-2024 End: 02-17-2025 take 1 capsule by mouth every twenty-four hours at bedtime Propranolol 60 mg capsule,extended release 24 hr Discontinued 60 mg PO AT BEDTIME 90 July 25, 2024 12:45pm February 17, 2025 10:16am Start: 02-01-2023 End: 05-18-2024 take 1 tablet by mouth twice daily Propranolol 20 mg tablet Discontinued 20 mg PO TWICE A DAY 180 March 21, 2024 8:41am May 18, 2024 9:17am Start: 07-02-2021 End: 12-17-2021 take 1 tablet by mouth twice daily Propranolol 20 mg tablet Discontinued 20 mg PO TWICE A DAY 60 October 28, 2021 8:32am December 17, 2021 1:28pm rizatriptan 10 mg oral tablet (20 sources) Serotonin-1b and Serotonin-1d Receptor Agonist Start: 02-01-2023 End: 04-08-2024 take 1 tablet by mouth every two hours Rizatriptan 10 mg tablet Discontinued 0 PO .COMPLEX 14 December 08, 2023 12:27pm April 08, 2024 12:29pm On Hold: Order Changed take 1 tab at onset of headache; if no relief may repeat 1 tab after at least 2 hrs; max = 3 tabs/24 hr PO sertraline 100 mg oral tablet (20 sources) Serotonin Reuptake Inhibitor Start: 02-01-2024 End: 02-17-2025 take 1 tablet by mouth once daily Sertraline 100 mg tablet Discontinued 100 mg PO DAILY 90 July 07, 2024 11:35am February 17, 2025 10:19am Start: 11-23-2023 End: 02-01-2024 take 1 tablet by mouth once daily Sertraline 50 mg tablet Discontinued 50 mg PO DAILY 90 December 08, 2023 12:27pm February 01, 2024 4:00pm Start: 12-15-2022 End: 11-23-2023 take 1 tablet by mouth once daily Sertraline 100 mg tablet Discontinued 100 mg PO DAILY 90 July 03, 2023 1:08pm August 24, 2023 10:25am Start: 01-07-2022 End: 12-15-2022 take 1 tablet by mouth once daily Sertraline (Zoloft) 50 mg tablet Discontinued 50 mg PO DAILY 90 July 10, 2022 12:51pm December 15, 2022 10:52am Start: 10-29-2021 End: 11-28-2021 take 1 tablet by mouth once daily Zoloft 50 MG Oral Tablet 1 (one) Tablet qd for 30 days Quantity: 30 {Tablet} Refills: 0 Ordered: 29-Oct-2021 Gloria James DO, DO, Kathleen Start : 29-Oct-2021 End : 28-Nov-2021 Inactive Start: 05-28-2021 take 1 tablet by jillian th once daily Zoloft 50 MG Oral Tablet 1 (one) Tablet qd for 30 days Quantity: 30 {Tablet} Refills: 3 Ordered: 28-May-2021 Gloria James DO, DO, Kathleen Start : 28-May-2021 Active Start: 01-16-2021 take 1 tablet by jillian th once daily Zoloft 50 MG Oral Tablet 1 (one) Tablet qd for 30 days Quantity: 30 {Tablet} Refills: 3 Ordered: 16-Jan-2021 Gloria James DO, DO, Kathleen Start : 16-Jan-2021 Active Start: 08-21-2020 End: 01-07-2022 take 1 tablet by mouth once daily Sertraline (Zoloft) 50 mg tablet Discontinued 50 mg PO DAILY August 22, 2020 1:00am January 07, 2022 4:44pm Start: 04-30-2020 End: 04-27-2020 take 1 tablet by mouth once daily Zoloft 50 MG Oral Tablet 1 (one) Tablet qd for 30 days Quantity: 30 {Tablet} Refills: 3 Ordered: 30-Apr-2020 Gloria James DO, DO, Kathleen Start : 30-Apr-2020 End : 27-Apr-2020 Active Start: 04-30-2020 End: 04-27-2020 take 1 tablet by mouth once daily Zoloft 50 MG Oral Tablet 1 (one) Tablet qd for 30 days Quantity: 30 {Tablet} Refills: 3 Ordered: 30-Apr-2020 Gloria James DO, DO, Kathleen Start : 30-Apr-2020 End : 27-Apr-2020 Active Start: 04-30-2020 End: 04-27-2020 take 1 tablet by mouth once daily Zoloft 50 MG Oral Tablet 1 (one) Tablet qd for 30 days Quantity: 30 {Tablet} Refills: 3 Ordered: 30-Apr-2020 Jacob ABAD Gloria James DOLashaeGloria Start : 30-Apr-2020 End : 27-Apr-2020 Active Start: 04-30-2020 End: 04-27-2020 take 1 tablet by mouth once daily Zoloft 50 MG Oral Tablet 1 (one) Tablet qd for 30 days Quantity: 30 {Tablet} Refills: 3 Ordered: 30-Apr-2020 Jacob DO, Gloria James DO Gloria Start : 30-Apr-2020 End : 27-Apr-2020 Active Start: 04-30-2020 End: 04-27-2020 take 1 tablet by mouth once daily Zoloft 50 MG Oral Tablet 1 (one) Tablet qd for 30 days Quantity: 30 {Tablet} Refills: 3 Ordered: 30-Apr-2020 Jacob ABAD Gloria James DO Gloria Start : 30-Apr-2020 End : 27-Apr-2020 Active Start: 04-30-2020 End: 04-27-2020 take 1 tablet by mouth once daily Zoloft 50 MG Oral Tablet 1 (one) Tablet qd for 30 days Quantity: 30 {Tablet} Refills: 3 Ordered: 30-Apr-2020 Jacob ABAD Gloria James DO Gloria Start : 30-Apr-2020 End : 27-Apr-2020 Active Start: 03-28-2020 End: 02-29-2020 take 1 tablet by mouth once daily Zoloft 50 MG Oral Tablet 1 (one) Tablet qd for 30 days Quantity: 30 {Tablet} Refills: 0 Ordered: 28-Mar-2020 Sofia Woodson CMA Start : 28-Mar-2020 End : 29-Feb-2020 Active Start: 01-30-2020 End: 02-29-2020 take 1 tablet by mouth once daily Zoloft 50 MG Oral Tablet 1 (one) Tablet qd for 30 days Quantity: 30 {Tablet} Refills: 0 Ordered: 30-Jan-2020 Evangelina Villanueva DO Start : 30-Jan-2020 End : 29-Feb-2020 Inactive Start: 05-09-2019 Zoloft 50 MG O ral Tablet 1 (one) Tablet 1/2 tablet daily for 6 days then 1 tablet daily for 30 days Quantity: 27 {Tablet} Refills: 0 Ordered: 09-May-2019 Anna Marie YENNIFERKady Start : 09-May-2019 Active terbinafine 250 mg oral tablet (18 sources) Allylamine Antifungal Start: 03-26-2020 End: 04-25-2020 take 1 tablet by mouth every week LamISIL 250 MG Oral Tablet 1 (one) Tablet once weekly for 30 days Quantity: 4 {Tablet} Refills: 0 Ordered: 26-Mar-2020 Sofia Woodson CMA Start : 26-Mar-2020 End : 25-Apr-2020 Inactive Comments: take once weekly for 4 weeks. Comment on above: take once weekly for 4 weeks. topiramate 25 mg oral tablet (20 sources) Start: 08-22-2020 End: 07-02-2021 take 1 tablet by mouth once daily Topiramate (Topamax) 25 mg tablet Discontinued 25 mg PO DAILY August 22, 2020 1:00am July 02, 2021 2:50pm Start: 08-01-2020 take 1 tablet by jillian th twice daily Topamax 25 MG Oral Tablet 1 (one) Tablet bid for 0 days Quantity: 60 {Tablet} Refills: 3 Ordered: 01-Aug-2020 Gloria James DO, DO, Kathleen Start : 01-Aug-2020 Active Start: 03-01-2020 take 1 tablet by jillian th twice daily Topamax 25 MG Oral Tablet 1 (one) Tablet bid for 0 days Quantity: 60 {Tablet} Refills: 4 Ordered: 01-Mar-2020 Gloria James DO, DO, Kathleen Start : 01-Mar-2020 Active Start: 09-30-2019 take 1 tablet by jillian th twice daily Topamax 25 MG Oral Tablet 1 (one) Tablet bid for 0 days Quantity: 60 {Tablet} Refills: 4 Ordered: 30-Sep-2019 Jewell Roa RN Start : 30-Sep-2019 Active Start: 04-27-2019 take 1 tablet by jillian th twice daily Topamax 25 MG Oral Tablet 1 (one) Tablet bid for 0 days Quantity: 60 {Tablet} Refills: 3 Ordered: 27-Apr-2019 Gloria James DO, DO, Kathleen Start : 27-Apr-2019 Active ubrogepant 100 mg oral tablet (8 sources) Start: 2024 End: 02-17-2025 take 1 tablet by mouth once Ubrogepant (Ubrelvy) 100 mg tablet Discontinued 100 mg PO ONCE 12 0 2024 12:00am February 17, 2025 10:17am as a single dose; may repeat once in >=2 hours after first dose if needed Problems Active Problems Problem Classification Problem Date Documented Date Episodic/Chronic Abdominal pain (20 sources) Generalized abdominal pain; Translations: [Pain in pelvis] Onset: 2 Resolved: 3 05-21-2015 Episodic Administrative/social admission (10 sources) Patient encounter status; Translations: [Encounter for pre-employment examination] 08-02-2020 Episodic Allergic reactions (20 sources) Other dermatitis due to solar radiation; Translations: [Contact dermatitis] 04-27-2019 Episodic Anxiety disorders (20 sources) Anxiety; Translations: [Anxiety] 04-27-2019 Chronic Comment on above: related to stress, 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 Congestive heart failure; nonhypertensive (4 sources) Diastolic dysfunction; Translations: [Diastolic dysfunction] 08-02-2020 Episodic Comment on above: bp and hr controlled and asx no need for treatment with BB at this time Contraceptive and procreative management (20 sources) H/O: tubal ligation; Translations: [Tubal Ligation] 04-27-2019 Episodic Comment on above: 2001 Deficiency and other anemia (20 sources) Anemia; Translations: [Anemia] Resolved: 0 05-22-2015 Episodic Disorders of lipid metabolism (20 sources) Hypertriglyceridemia; Translations: [Hyperglyceridemia] 04-27-2019 Chronic Comment on above: improved E Codes: Fall (2 sources) Unspecified fall, initial encounter; Translations: [Unspecified fall] Episodic Esophageal disorders (20 sources) Gastroesophageal reflux disease; Translations: [Chronic GERD] 04-27-2019 Chronic Comment on above: taking otc ppi prn- rev behavioral modifications Esophageal disorders (20 sources) Esophageal disorders Fever of unknown origin (20 sources) Fever; Translations: [Fever, unspecified] Resolved: 1 05-25-2015 Episodic Gastritis and duodenitis (20 sources) Gastritis; Translations: [Acute gastritis] Resolved: 9 05-23-2015 Episodic Comment on above: chronic stable-vidhi nue present regimen Headache; including migraine (20 sources) Migraine; Translations: [Refractory migraine] 04-27-2019 Chronic Comment on above: check labs before in crease topamax Headache; including migraine (20 sources) Headache; Translations: [Headache] Onset: 0 Resolved: 2 04-10-2015 Episodic Heart valve disorders (20 sources) Mitral valve prolapse; Translations: [Non-rheumatic mitral regurgitation ] 04-27-2019 Chronic Comment on above: clinically stable mild insufficiency s o will do dental prophyaxsis mild Hemorrhoids (20 sources) Hemorrhoids; Translations: [Hemorrhoids] 04-27-2019 Episodic Immunizations and screening for infectious disease (20 sources) Need for prophylactic vaccination and inoculation against influenza; Translations: [Needs influenza immunization] Resolved: 2 04-10-2015 Episodic Malaise and fatigue (20 sources) Fatigue; Translations: [Other fatigue] 04-27-2019 Episodic Comment on above: started D and repeat TSH Mood disorders (20 sources) Dysthymia; Translations: [Dysthymic] 04-27-2019 Chronic Mood disorders (20 sources) Mood disorders Mycoses (20 sources) Dermatophytosis; Translations: [Ringworm] Resolved: 1 03-30-2020 Episodic Nausea and vomiting (20 sources) Nausea; Translations: [Nausea (Renamed from Nausea alone)] Resolved: 5 11-21-2014 Episodic Neoplasms of unspecified nature or uncertain behavior (20 sources) Neoplasm of uncertain behavior of skin; Translations: [Neoplasm of uncertain behavior of skin] 04-27-2019 Episodic Comment on above: right thigh - rule o ut bcc- sent to path-- with shave bx Nonspecific chest pain (20 sources) Chest pain; Translations: [Chest pain] Onset: 1 Resolved: 5 11-13-2014 Episodic Comment on above: better with treat as thma went away Nutritional deficiencies (20 sources) Vitamin D deficiency; Translations: [Vitamin D deficiency] 04-27-2019 Chronic Comment on above: chronic stable-vidhi nue present regimen vit D3 5,000 units d aily enc to take Open wounds of head; neck; and trunk (20 sources) Open wound of abdominal wall, anterior, without mention of complication; Translations: [Abdomen Wall wound (879.2) (Renamed from Abdomen Wall)] Resolved: 2 01-12-2012 Episodic Comment on above: tore out belly ring. cauterized area. heal naturally use vaseline no neosporin. had tetanus in last 10 years Osteoarthritis (20 sources) Arthritis; Translations: [Unspecified osteoarthritis, unspecified site] 09-01-2022 Chronic Other acquired deformities (11 sources) Cervical kyphosis; Translations: [Unspecified kyphosis, cervical region] 09-02-2023 Chronic Other acquired deformities (5 sources) Unspecified kyphosis, cervical region; Translations: [Kyphosis (acquired) (postural)] 09-02-2023 Chronic Other acquired deformities (11 sources) Lumbar spondylolisthesis; Translations: [Spondylolisthesis, lumbar region] 09-02-2023 Episodic Other acquired deformities (5 sources) Spondylolisthesis, lumbar region; Translations: [Acquired spondylolisthesis] 09-02-2023 Episodic Other acquired deformities (20 sources) Spondylolisthesis; Translations: [Spondylolisthesis, cervical region] 10-13-2024 Episodic Other acquired deformities (1 source) Spondylolisthesis, cervical region; Translations: [Spondylolisthesis, cervical region] Onset: Episodic Other and ill-defined heart disease (18 sources) Diastolic dysfunction; Translations: [Diastolic dysfunction] 08-02-2020 Chronic Comment on above: bp and hr controlled and asx no need for treatment with BB at this time Other and unspecified benign neoplasm (20 sources) Change in skin lesion; Translations: [Melanocytic nevi, unspecified] 07-02-2021 Episodic Other and unspecified benign neoplasm (6 sources) Melanocytic nevi, unspecified; Translations: [Benign neoplasm of skin, site unspecified] Episodic Other and unspecified benign neoplasm (15 sources) Pigmented skin lesion ; Translations: [Melanocytic nevi, unspecified] 12-15-2022 Episodic Other connective tissue disease (20 sources) Tendinitis; Translations: [Iliotibial band tendinitis of right side] 04-27-2019 Episodic Other connective tissue disease (20 sources) Foot pain; Translations: [Foot Pain] 04-27-2019 Episodic Comment on above: think neuroma - disc ussed nsaids and rest Other connective tissue disease (20 sources) Myalgia; Translations: [Muscle pain] 04-27-2019 Episodic Other connective tissue disease (13 sources) History of cervical spine fusion; Translations: [Arthrodesis status] 03-08-2025 Episodic Other connective tissue disease (4 sources) Pain in both feet; Translations: [Pain in right foot] 12-15-2022 Episodic Other connective tissue disease (2 sources) Arthrodesis status; Translations: [Arthrodesis status] Onset: 5 Episodic Other female genital disorders (20 sources) Disorder of female genital organs; Translations: [Other specified conditions associated with female genital organs and menstrual cycle] 04-27-2019 Episodic Other gastrointestinal disorders (20 sources) Constipation; Translations: [Constipation] 04-27-2019 Episodic Other gastrointestinal disorders (20 sources) Abdominal bloating 05-27-2016 Episodic Comment on above: pelvic pain Other inflammatory condition of skin (20 sources) Perioral dermatitis; Translations: [Perioral dermatitis] 09-30-2019 Chronic Other liver diseases (8 sources) Elevated liver enzymes level; Translations: [Abnormal levels of other serum enzymes] 02-24-2024 Episodic Other lower respiratory disease (20 sources) H/O: pneumonia; Translations: [History of pneumonia] 04-27-2019 Episodic Other lower respiratory disease (17 sources) Snoring; Translations: [Snores] 07-17-2020 Episodic Other lower respiratory disease (20 sources) Dyspnea; Translations: [SOB (shortness of breath)] Resolved: 1 07-17-2020 Episodic Other lower respiratory disease (15 sources) Chronic cough; Translations: [Chronic cough] 12-15-2022 Episodic Other nervous system disorders (12 sources) Perineurial cyst; 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 Other nervous system disorders (20 sources) Cervical myelopathy; Translations: [Disease of spinal cord, unspecified] 12-13-2024 Chronic Other nervous system disorders (2 sources) Disease of spinal cord, unspecified; Translations: [Disease of spinal cord, unspecified] Onset: 5 Chronic Other nervous system disorders (20 sources) Numbness and tingling sensation of skin; Translations: [Numbness and tingling] 04-27-2019 Episodic Comment on above: lips side effect of topamax Other non-traumatic joint disorders (19 sources) Polyarthropathy; Translations: [Polyarthritis, unspecified] 09-01-2022 Chronic Other non-traumatic joint disorders (20 sources) Hip pain; Translations: [Hip pain] 04-27-2019 Episodic Other non-traumatic joint disorders (20 sources) Pain in left knee; Translations: [Left knee pain] Episodic Other non-traumatic joint disorders (2 sources) Pain in right ankle and joints of right foot; Translations: [Pain in joint, ankle and foot] Episodic Other nutritional; endocrine; and metabolic disorders (20 sources) Body mass index 30+ - obesity; Translations: [BMI 30.0-30.9,adult] 04-27-2019 Chronic Other nutritional; endocrine; and metabolic disorders (20 sources) Body mass index 25-29 - overweight; Translations: [BMI 27.0-27.9,adult] Resolved: 9 04-27-2019 Chronic Other nutritional; endocrine; and metabolic disorders (20 sources) Obese class I; Translations: [Obesity, unspecified] 09-27-2020 Chronic Other nutritional; endocrine; and metabolic disorders (20 sources) Obesity, unspecified; Translations: [Obesity, unspecified] Onset: 5 Chronic Other nutritional; endocrine; and metabolic disorders (20 sources) Weight gain; Translations: [Weight gain] 04-27-2019 Episodic Other nutritional; endocrine; and metabolic disorders (16 sources) History of iron deficiency; Translations: [History of iron deficiency] 07-17-2020 Episodic Other nutritional; endocrine; and metabolic disorders (16 sources) Body mass index 25-29 - overweight; Translations: [BMI 29.0-29.9,adult] Resolved: 9 08-02-2020 Episodic Other nutritional; endocrine; and metabolic disorders (6 sources) Overweight in adulthood with body mass index of 25 or more but less than 30; Translations: [BMI 29.0-29.9,adult] Resolved: 9 05-06-2021 Episodic Other screening for suspected conditions (not mental disorders or infectious disease) (20 sources) Thyroid hormone tests abnormal; Translations: [Abnormal TSH] Onset: 4 Resolved: 5 04-27-2019 Episodic Other skin disorders (20 sources) Acne; Translations: [Acne] 04-27-2019 Episodic Other skin disorders (20 sources) Skin tag; Translations: [Skin tag] Resolved: 2 05-23-2015 Episodic Other skin disorders (20 sources) Eruption; Translations: [Rash] Resolved: 9 06-27-2019 Episodic Other upper respiratory infections (20 sources) Acute pharyngitis; Translations: [Acute pharyngitis] Resolved: 2 05-22-2015 Episodic Otitis media and related conditions (20 sources) Dysfunction of eustachian tube; Translations: [Eustachian tube dysfunction] Resolved: 0 04-10-2015 Episodic Pulmonary heart disease (9 sources) Pulmonary embolism; Translations: [Other pulmonary embolism without acute cor pulmonale] 11-16-2023 Episodic Residual codes; unclassified (20 sources) Obstructive sleep apnea syndrome; Translations: [CALI (obstructive sleep apnea)] 05-06-2021 Chronic Comment on above: AutoPap Residual codes; unclassified (20 sources) Hypersomnia; Translations: [Hypersomnia, unspecified] 09-27-2020 Chronic Residual codes; unclassified (15 sources) Obstructive sleep apnea (adult) (pediatric); Translations: [Obstructive sleep apnea (adult)(pediatric)] Chronic Residual codes; unclassified (20 sources) Chill; Translations: [Other general symptoms] Episodic Residual codes; unclassified (20 sources) Postmenopausal state; Translations: [Post-menopausal] 04-27-2019 Episodic Residual codes; unclassified (18 sources) Family history of cancer of colon; Translations: [Family history of colon cancer] 07-17-2020 Episodic Residual codes; unclassified (16 sources) Influenza vaccination declined; Translations: [Influenza vaccination declined (Renamed from Refused influenza vaccine)] 08-02-2020 Episodic Residual codes; unclassified (20 sources) Non-smoker; Translations: [Nonsmoker] 08-02-2020 Episodic Residual codes; unclassified (1 source) Family history of breast cancer; Translations: [Family history of malignant neoplasm of breast] Episodic Residual codes; unclassified (16 sources) Family history of malignant neoplasm of pancreas; Translations: [Family history of malignant neoplasm of digestive organs] Episodic Residual codes; unclassified (20 sources) History of colonoscopy; Translations: [Other specified postprocedural states] 07-02-2021 Episodic Comment on above: 2020, precancerous p olyps found Residual codes; unclassified (6 sources) Family history of malignant neoplasm of digestive organs; Translations: [Family history of malignant neoplasm of gastrointestinal tract] 05-20-2023 Episodic Residual codes; unclassified (8 sources) Inadequate sleep hygiene; Translations: [Inadequate sleep hygiene] 05-17-2024 Episodic Spondylosis; intervertebral disc disorders; other back problems (20 sources) Cervical radiculopathy; Translations: [Cervical Radiculopathy] 04-27-2019 Chronic Spondylosis; intervertebral disc disorders; other back problems (20 sources) Backache; Translations: [Pain in thoracic spine] Onset: 5 04-27-2019 Episodic Comment on above: Xray coccyx, lumbar spine and rt hip.Lower back pain likely secondary to lumbar strain versus lumbar herniated disc versus pain due to degenerative changes in the lumbar spine versus Sciatica.On exam patient has severe pain on palpation of the llumbar paraspinal muscles.Pain on palpation of the coccyxNeurological exam power 5/5 in both the lower extremity.Sensation is normal in both lower extremities. Deep tendon reflexes are symmetrical in both the lower extremities. Metaxalone(Skelaxin) 800 mg three times a days as needed for severe pain. (watch out for sedation, dont drive or use heavy machinery)Medrol dose pack UADPhysical therapyRest, apply heat/cold, gentle stretching exercises.Red flags: please call us if bowel/bladder incontinence, leg weakness, numbness, urine retention.If symptoms dont improve in the next 3-4 weeks please call us.(consider MRI)Lower back pain since 2010, now more severe for 1 week.Fell on tile 1 week ago, siince then pain is worse. Achy pain, 7/10Had fracture of tail bone area many years ago, cracking sound in cocyxRt hip> left hip painlower back grinds when stretchesLower back hurts all the timeHurts more when sit /stand for long time.Heat /Ice , ibuprofen 600 mg eevry 4 hours initiallywas given tramadol by Dr Howard has numbness and wekness in legs since .Has stress incontyimce but no loss of control of bladder Lower back pain sinc e 2010, now more severe for 1 week.Fell on tile 1 week ago, siince then pain is worse. Achy pain, 01/12Had fracture of tail bone area many years ago, cracking sound in cocyxRt hip> left hip painlower back grinds when stretchesLower back hurts all the timeHurts more when sit /stand for long time.Heat /Ice , ibuprofen 600 mg eevry 4 hours initiallywas given tramadol by Dr Howard has numbness and wekness in legs since .Has stress incontyimce but no loss of control of bladder Superficial injury; contusion (2 sources) Abrasion, left knee, initial encounter; Translations: [Abrasion or friction burn of hip, thigh, leg, and ankle, without mention of infection] Episodic Thyroid disorders (20 sources) Acquired hypothyroidism; Translations: [Hypothyroidism] Onset: 5 05-27-2016 Chronic Comment on above: ON MED Unclassified (20 sources) Unclassified (20 sources) Hypertriglycerides (272.1) Unclassified (20 sources) Influenza vaccination declined; Translations: [Influenza vaccination declined (Renamed from Refused influenza vaccine)] 04-27-2019 Unclassified (20 sources) Non-smoker; Translations: [Nonsmoker] 04-27-2019 Unclassified (20 sources) BMI 30.0-30.9,adult Unclassified (20 sources) Post-menopausal Unclassified (20 sources) Intractable migraine without status migrainosus, unspecified migraine type Unclassified (20 sources) Abnormal TSH Unclassified (20 sources) Dysthymic Unclassified (20 sources) Non-smoker Unclassified (20 sources) BMI 27.0-27.9,adult Unclassified (20 sources) Weight gain Unclassified (20 sources) Hyperglyceridemia Unclassified (20 sources) Lesion-Unknown behavior (238.2) Unclassified (14 sources) Hip pain, bilateral Unclassified (14 sources) History of iron deficiency Unclassified (20 sources) Snores Unclassified (20 sources) Family history of colon cancer Unclassified (20 sources) Depression/Anxiety (300.4) Unclassified (2 sources) M54.12 - Radiculopathy, cervical region Unclassified (3 sources) History of cervical spine fusion Unclassified (3 sources) Z98.1 - Arthrodesis status Past or Other Problems Problem Classification Problem Date Documented Date Episodic/Chronic Headache; including migraine (20 sources) Headache; including migraine Pneumonia (except that caused by tuberculosis or sexually transmitted disease) (20 sources) Infective pneumonia; Translations: [Pneumonia, organism unspecified] Resolved: 01-01-2011 05-22-2015 Episodic Residual codes; unclassified (20 sources) Needs influenza immunization; Translations: [Need for prophylactic vaccination and inoculation against influenza] Resolved: 01-12-2012 04-10-2015 Episodic Residual codes; unclassified (20 sources) Other general symptoms; Translations: [CHILLS] Resolved: 01-01-2011 01-01-2011 Episodic Residual codes; unclassified (3 sources) Increased body mass index; Translations: [BMI 29.0-29.9,adult] 05-13-2019 Episodic Unclassified (20 sources) Abdominal Pain,General (789.07) Unclassified (20 sources) Deliveries (Parity); Translations: [Deliveries (Parity)] 04-27-2019 Comment on above: 3 Unclassified (20 sources) Patient encounter status; Translations: [Encounter for pre-employment examination] Resolved: 11-21-2014 04-27-2019 Unclassified (20 sources) Work Physical (V70.5) Unclassified (20 sources) Eustachian tube dysfunction (381.81) Unclassified (20 sources) Pregnancies (); Translations: [Pregnancies ()] 04-27-2019 Comment on above: 3 Unclassified (20 sources) Skin Tag, Irritated (701.9) Unclassified (20 sources) THYROID, NOS 04-27-2019 Unclassified (20 sources) Unspecified Diagnosis 04-27-2019 Unclassified (20 sources) Abdomen Wall wound (879.2) (Renamed from Abdomen Wall (879.2)) Unclassified (20 sources) Numbness and tingling Unclassified (20 sources) Screening Unclassified (20 sources) PHOTOSENSITIVITY DUE TO SUN (692.79) Unclassified (20 sources) PHARYNGITIS, ACUTE (462.) Unclassified (20 sources) SYMPTOM, FEVER, UNSPECIFIED (780.60) Unclassified (20 sources) Hip pain, acute, right Unclassified (20 sources) SI (sacroiliac) pain Unclassified (20 sources) Sciatica, right Unclassified (20 sources) Iliotibial band tendinitis of right side Unclassified (20 sources) BMI 29.0-29.9,adult Unclassified (20 sources) Contact dermatitis and eczema Unclassified (19 sources) Encounter for screening for lipid disorder Unclassified (19 sources) Rash Unclassified (20 sources) Ringworm Unclassified (10 sources) Nonrheumatic mitral valve regurgitation Unclassified (8 sources) BMI 32.0-32.9,adult Unclassified (4 sources) CALI (obstructive sleep apnea) Unclassified (4 sources) Abnormal thyroid function test Results Test Name Value Interpretation Reference Range Facility Pulmonary Visit Reporton Pulmonary Visit Report [facility] Pulmonary Medicine [address] [place] [address] OFFICE VISIT Date of Service: 05/17/25 MR#: [id number] Acct: [id number] Name: ROSALIE RANDHAWA Rep #: [id number] : 1970 Provider: BAY Cullen Age/Sex: 55/F Location: [facility] [place] Status: Signed Assessment and Plan Assessment and Plan (1) CALI (obstructive sleep apnea): Status: Chronic Comment: AutoPap Plan: Stable, she is using and benefiting from Pap therapy. No indication for titration study at this time. Contact the office for any new or worsening symptoms in the meantime. Follow-up in 1 year. (2) Obesity (BMI 30.0-34.9): Status: Chronic Plan: The patient reports that she has tried to achieve weight loss through dietary restriction. She would ultimately like to lose enough weight to be retested for ongoing sleep apnea. Her goal would be to be relieved of pressure support therapy. She would be appropriate for management with Zepbound, or similar product. I encouraged her to have a discussion with her primary care provider. Plan to return to the office in 1 year unless she has a 15 to 20 pound weight loss sooner than the 1 year follow-up. She can call the office and had an office visit for reevaluation. Plan Details Additional Comments: This note was generated with Exhbit dictation software. It may contain incorrect words, spelling, and punctuation that were not noted in checking the note before signing. Portions of this documentation have been copied and pasted from previous office visit notes to provide a cohesive continuity of the history. The note has been reviewed, edited, and updated, as necessary. Follow Up: 1 Year HPI 1 Y FU Chief Complaint: sleep apnea HPI Comments Details: This patient presents to the office today for follow-up of her obstructive sleep apnea. She is ambulatory. She has not recently been seen in the ED or urgent care for any respiratory illness. She has not required any antibiotics or prednisone for any breathing problems. She had spinal fusion C3-4/4-5/5-6 on 03/07/25. She denies any difficulty with shortness of breath. She denies any wheezing, chest tightness, chest pain or palpitations. She has not had any fever, chills or body aches. She denies any cough, sputum production or hemoptysis. She wakes up feeling rested and refreshed. She is not having difficulty with dry mouth She denies the need for napping. She is not nodding off to sleep unintentionally. She is not having morning headaches. She is having wilfrido loss success through dietary restriction. She is down 4 pounds since her last office visit. She states, I would like to get rid of the pap machine. Compliance report for the past 30 days shows 93% compliance with an average use of 6 hours and 54 minutes on nights being used. Current setting is AutoPap 5-12 cm of water with average pressures being utilized at 9.5 to 11.7 cm of water. Residual AHI 1.1 events per hour and leaks do not appear to be an issue. Intake Vital Signs 05/17/24 07:34 05/17/25 07:47 Height 5 ft 4 in 5 ft 4 in Weight: 179 lb BMI 30.7 BP 117/76 Blood Pressure Location Lt brachial Position Sitting Respiration 18 Pulse 86 Pulse Source Monitor Temp 97.4 F L Temperature Source Temporal Artery Pulse Oximetry (%) 94 Oxygen Delivery Method room air Intake Visit Reasons: 1 Y FU Chief Complaint: Cervical spine 6 week post op Assistant Art Director Required: No DME Vendor: Shereen Accompanied by: Self Allergies pseudoephedrine Allergy (Unknown, Verified 05/17/25 07:56) Other sumatriptan (From Imitrex) Adverse Reaction (Unknown, Verified 05/17/25 07:56) Swelling Medications ???Medication ???Instructions ???Recorded ???Confirmed ???Type L.acidophilus-L.plant arum-L.rhamnosus 1 cap PO DAILY 01/16/2205/17 History 1 billion cell capsule,delay rel (Probiotic Pearls Women's) Synthroid 100 mcg tablet 100 mcg PO DAILY #90 tabs 12/06/24 05/17/25 Rx (levothyroxine) atogepant 60 mg tablet (Qulipta) 60 mg PO DAILY 02/17/25 05/17/25 H istory rimegepant 75 mg disintegrating 75 mg PO DAILY PRN migraine 05/17/25 History tablet (Nurtec ODT) sertraline 100 mg tablet 100 mg PO QHS 02/17/25 05/17/25 Hi story PFSH Medical History Wears glasses Depression Low iron Pulmonary embolism Easy bruising Restless legs Injury of back Vertigo History of IBS Gastric reflux Non-smoker Asthma CPAP (continuous positive airway pressure) dependence Shortness of breath on exertion History of echocardiogram History of stress test Hx of colonic polyps Family history of colon cancer Colon cancer screening Elevated liver enzymes Mitral valve di (more content not included)... Normal [facility] Comprehensive Metabolic Prof leobardo 05-13-2025 Albumin [Mass/Vol] 4.3 g/dL Normal 3.5-5.0 [facility] Comment on above: Performed By: #### L 501.9985, L506.0400, L500.4050, L500.4100, L501.9520 ####[facility] [address] [place], [address] Albumin/Globulin [Mass ratio] 1.5 {ratio} Normal 0.9-2.4 [facility] Comment on above: Performed By: #### L 501.9985, L506.0400, L500.4050, L500.4100, L501.9520 ####[facility] [address] [place], [address] ALK PHOS 100 U/L Normal 35-104 [facility] Comment on above: Performed By: #### L 501.9985, L506.0400, L500.4050, L500.4100, L501.9520 ####[facility] [address] [place], [address] ALT [Catalytic activity/Vol] 15 U/L Normal <=34 [facility] Comment on above: Performed By: #### L 501.9985, L506.0400, L500.4050, L500.4100, L501.9520 ####[facility] [address] [place], [address] AST [Catalytic activity/Vol] 20 U/L Normal <=31 [facility] Comment on above: Performed By: #### L 501.9985, L506.0400, L500.4050, L500.4100, L501.9520 ####[facility] [address] [place], [address] Bilirubin [Mass/Vol] 0.44 mg/dL Normal 0.00-1.30 [facility] Comment on above: Performed By: #### L 501.9985, L506.0400, L500.4050, L500.4100, L501.9520 ####[facility] [address] [place], [address] BUN/CRE 17.8 RATIO Normal 10-20 [facility] Comment on above: Performed By: #### L 501.9985, L506.0400, L500.4050, L500.4100, L501.9520 ####[facility] [address] [place], [address] Calcium [Mass/Vol] 9.8 mg/dL Normal 7.6-11.0 [facility] Comment on above: Performed By: #### L 501.9985, L506.0400, L500.4050, L500.4100, L501.9520 ####[facility] [address] [place], [address] Chloride [Moles/Vol] 105 mmol/L Normal 98-108 [facility] Comment on above: Performed By: #### L 501.9985, L506.0400, L500.4050, L500.4100, L501.9520 ####[facility] [address] [place], [address] CO2 [Moles/Vol] 22.1 mmol/L Normal 21.0-32.0 [facility] Comment on above: Performed By: #### L 501.9985, L506.0400, L500.4050, L500.4100, L501.9520 ####[facility] [address] [place], [address] Creatinine [Mass/Vol] 0.80 mg/dL Normal 0.70-1.20 [facility] Comment on above: Performed By: #### L 501.9985, L506.0400, L500.4050, L500.4100, L501.9520 ####[facility] [address] [place], [address] GAP 12 Normal 5-15 [facility] Comment on above: Performed By: #### L 501.9985, L506.0400, L500.4050, L500.4100, L501.9520 ####[facility] [address] [place], [address] GFR/1.73 sq M.predicted among non-blacks MDRD (S/P/Bld) [Vol rate/Area] 87 mL/min/{1.73_m2} Normal >60 [facility] Comment on above: Result Comment: mL/m in/1.73m2 CKD-EPI Creatinine Equation (2020) Performed By: #### L 501.9985, L506.0400, L500.4050, L500.4100, L501.9520 ####[facility] [address] [place], [address] Globulin (S) [Mass/Vol] 2.9 g/dL Normal 2.2-4.2 [facility] Comment on above: Performed By: #### L 501.9985, L506.0400, L500.4050, L500.4100, L501.9520 ####[facility] [address] [place], [address] Glucose [Mass/Vol] 93 mg/dL Normal 70-99 [facility] Comment on above: Performed By: #### L 501.9985, L506.0400, L500.4050, L500.4100, L501.9520 ####[facility] [address] [place], [address] Potassium [Moles/Vol] 4.3 mmol/L Normal 3.3-5.1 [facility] Comment on above: Performed By: #### L 501.9985, L506.0400, L500.4050, L500.4100, L501.9520 ####[facility] [address] [place], [address] Sodium [Moles/Vol] 139 mmol/L Normal 133-145 [facility] Comment on above: Performed By: #### L 501.9985, L506.0400, L500.4050, L500.4100, L501.9520 ####[facility] [address] [place], [address] T PROT 7.2 g/dL Normal 5.9-8.4 [facility] Comment on above: Performed By: #### L 501.9985, L506.0400, L500.4050, L500.4100, L501.9520 ####[facility] [address] [place], [address] Urea nitrogen [Mass/Vol] 14 mg/dL Normal 4-19 [facility] Comment on above: Performed By: #### L 501.9985, L506.0400, L500.4050, L500.4100, L501.9520 ####[facility] [address] [place], [address] Hemoglobin A1con 05-13-2025 HbA1c (Bld) [Mass fraction] 5.8 % High <=5.6 [facility] Comment on above: Result Comment: Norm al < 5.7 % Prediabetic 5.7 - 6.4 % Diabetic >or= 6.5 % Please note range changes. Performed By: #### L 501.9985, L506.0400, L500.4050, L500.4100, L501.9520 #### [facility] [address] [place], [address] Lipid Profileon 05-13-2025 CHOL:HDL 4.01 Normal [facility] Comment on above: Performed By: #### L 501.9985, L506.0400, L500.4050, L500.4100, L501.9520 ####[facility] [address] [place], [address] Cholesterol [Mass/Vol] 227 mg/dL High <=200 [facility] Comment on above: Result Comment: Chol esterol level, Desirable <200 mg/dL Borderline high cholesterol 200-239 mg/dL High cholesterol >=240 mg/dL Recommendations of the NCEP Adult Treatment Panel for the following risk-cutoff thresholds for the [place] population. Performed By: #### L 501.9985, L506.0400, L500.4050, L500.4100, L501.9520 ####[facility] [address] [place], [place], [phone] Cholesterol in HDL [Mass/Vol] 57 mg/dL Normal [facility] Comment on above: Result Comment: Lisa onal Cholesterol Education Program (NCEP) guidelines: <40 mg/dL: Low HDL-cholesterol (major risk factor for CHD) >= 60 mg/dL: High HDL-cholesterol (negative risk factor for CHD) HDL-cholesterol is affected by a number of factors, e.g. smoking, exercise, hormones, sex and age. Performed By: #### L 501.9985, L506.0400, L500.4050, L500.4100, L501.9520 ####[facility] [address] [place], [place], [phone] Cholesterol in LDL [Mass/Vol] 137 mg/dL Normal [facility] Comment on above: Result Comment: Bord whqcwv=920-573 mg/dL Higher Saqm=772 mg/dL or greater Hahn Equation 2020 for LDL-C Performed By: #### L 501.9985, L506.0400, L500.4050, L500.4100, L501.9520 ####[facility] [address] [place], [place], [phone] Cholesterol in VLDL [Mass/Vol] 38 mg/dL Normal 5-40 [facility] Comment on above: Performed By: #### L 501.9985, L506.0400, L500.4050, L500.4100, L501.9520 ####[facility] [address] [place], [place], [phone] Triglyceride [Mass/Vol] 189 mg/dL Normal [facility] Comment on above: Result Comment: The drugs N-Acetylcysteine and Metamizole may falsely depress this assay. Normal range: <150 mg/dL Borderline High: 150-199 mg/dL High: 200-499 mg/dL Very High: >500 mg/dL Performed By: #### L 501.9985, L506.0400, L500.4050, L500.4100, L501.9520 ####[facility] [address] [place], [address] T4 Free Directon 05-13-2025 T4 FREE DIRECT 1.10 ng/dL Normal 0.76-1.46 [facility] Comment on above: Performed By: #### L 501.9985, L506.0400, L500.4050, L500.4100, L501.9520 ####[facility] [address] [place], [address] Thyroid Stim Hormone (TSH)on 05-13-2025 TSH 0.475 uIU/mL Normal 0.300-4.200 [facility] Comment on above: Performed By: #### L 501.9985, L506.0400, L500.4050, L500.4100, L501.9520 ####[facility] [address] [place], [place], [address] Inital Evaluation (1) - PTon 05-03-2025 Inital Evaluation (1) - PT [facility] Physical Therapy [facility] [place] [address] / REHABILITATION SERVICES INITIAL EVALUATION MR#: [id number] Acct: [id number] Name: ROSALIE RANDHAWA Rep #: [id number] : 1970 55 From: Radha Hylton PT, Cert. MDT Referring Dr.: JESUSITA Palacios Status: REG RCR Insurance: [employer] SELF PAY INSURANCE Patient's Visit Information Visit Information Visit Information: ROSALIE GONZALES is a 55 year old F referred to Physical Therapy by JESUSITA Palacios with a diagnosis of S/P ACDF C4-C6 03/07/2025.. Date of Evaluation: 03/29/25 Physical Therapist: Radha Hylton PT, Cert MDT Visit Plan Frequency: 2-3x /Week Duration: 6-8 WKS Plan: MONITOR INCISION. CHECK HEADLIFTS. PROGRESS UE STRENGTH. NO LIFTING MORE THAN A GALLON OF MILK AT THIS TIME. NO BENDING OR TWISTING UNTIL 3 MONTHS POST OP. STM AND TRIGGER POINT RELEASE TO CHAGO POSTERIOR CERVICAL MUSCULATURE IN SITTING CERVICAL AND POSTURAL STRENGTHENING STARTING WITH SUBMAX CERVICAL ISOMETRICS AND PROGRESSING TOLERATED CHAGO UE ROM AND STRENGTHENING FOCUSING ON SCAPULAR STRENGTH AND STABILIZATION RESTORE CERVICAL ROM GENTLY. HEP INSTRUCTION. Subjective Subjective: Work/Leisure: [employer]. TYPICALLY WORKS 40 HRS A WEEK. A LOT OF [employer]. 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 CURRENTLY BACK TO WORK 30-40 HRS A WK WITH 8 LB LIFTING LIMIT. Present symptoms: NECK PAIN AND FATIGUE/WEAKNESS. PATIENT DENIES CHAGO UE SX'S. STATES SHE HAD HAND WEAKNESS AND WAS DROPPING THINGS PRIOR TO SURGERY BUT THAT SEEMS TO BE GONE NOW. Present since: CHRONIC Getting Better, Getting Worse or Staying the Same: GETTING BETTER. Pain Scale: Worst - 3/10 Least - /10 Currently: 08/15 Commenced as a result of: NO APPARENT REASON. STARTED A TEENAGER. Symptoms at onset: WOKE UP ONE DAY AND COULDN'T MOVE NECK Worse: BEING OUT OF BRACE TOO LONG, WEANING OUT OF BRACE, THE DAY PROGRESSES. Better: PUTTING NECK BRACE BACK ON, SITTING WITH HEAD SUPPORTED, TOPICAL PAIN CREAM, ALEVE Disturbed sleep: NO Previous history/Previous treatment: CHIROPRACTIC, PT, MEDS, NO BLANCHE'S. This episode: ACDF C4-C6 03/07/25 Dizziness: NO Tinnitus: NO Nausea: NO Shortness of Breath: NO Difficulty Swallowing: MILD WITH DRY MEAT - MOSTLY GONE Gait: NORMAL Accidents: NO Unexplained weight loss: NO Imaging: F/U IMAGING POST SURGERY LOOKED GOOD PER PATIENT REPORT. PATIENT REPORTS SHE IS WEARING BONE STIMULATOR 4 HRS A DAY. PMH/Recent major surgery: SEE [facility] EMR Pain R NECK/UT: Pain Intensity (Out of 10): 1 Pain Intensity Range: 1 and 3 Comment: TIGHT Objective Objective: Sitting Posture/Standing Posture: FH. RSH'S. NO TORTICOLLIS. Active Correction of posture: PATIENT ABLE TO PARTIALLY CORRECT BUT NOT MAINTAIN. Other Observations: INDEP GAIT AND TRANSFERS. GUARDED NECK AND UE MVMTS. Sensory deficit: DECREASED LIGHT TOUCH THROUGHOUT R UE COMPARED TO L. ROM deficit: CHAGO UE ROM WNL. 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 L 38 LBS. CHAGO UE STRENGTH GROSSLY 5/5. Reflexes: 2+ CHAGO UE'S. Cervical Mvmt Loss: Flex: MOD Pro: MIN Ext: MOD TO CRAIG Ret: MOD TO CRAIG RSB: MOD - R NECK KINK - NW LSB: MOD R Rot: MOD - R NECK KINK - NW L Rot: MOD Postural strength: POOR Palpation: TENDERNESS AND INCREASED M. TONE THROUGHOUT CERVICAL MUSCULATURE. UPPER THORACIC AND CERVICAL SPINE TENDERNESS WITH SIGNIFICANT SWELLING IN LOWER CERVICAL SPINE REGION. Balance/Special Test Scores Oswestry Neck Score: 20 Goals Goal 1:: INCREASE PAINFREE CERVICAL ROM TO EASE ADL'S. Goal Time Frame: 6-8 Weeks Goal 2:: IMPROVE POSTURAL AND CHAGO UE FUNCTIONAL STRENGTH WITHIN GUIDELINES SET BY SURGEON TO IMPROVE ADL AND WORK TOLERANCE Goal Time Frame: 6-8 Weeks Goal 3:: PATIENT WILL SCORE AT LEAST 8 POINTS BETTER ON NECK OSWESTRY QUESTIONNAIRE. Goal Time Frame: 6-8 Weeks Goal 4:: INDEP HEP FOR CONTINUED IMPROVEMENT ONCE FORMAL PHYSICAL THERAPY CONCLUDES. Goal Time Frame: 6-8 Weeks Rehabilitation Potential Physical Therapy Diagnosis: CERVICAL, POSTURAL AND UPPER EXTREMITY WEAKNESS AND STIFFNESS S/P ACDF. Rehabilitation Potential: Good Anticipated Interventions Patient/Client Instruction: Educate patient on: Condition, Plan of Care and Risk Factors For the Purpose of:: To improve self management Therapeutic Exercise to Include: Strength training, Body mechanics, Postural training, Flexibilty training, Neuromotor development, Relaxation training and Scapular Strength/Stabilizatio n For the Purpose of:: To decrease pain, To improve nutrient delivery to tissue, To increase oxygenation perfusion, To improve muscle performance and motor function, To improve ability to perform ADL's, To increase tolerance to activity/condition/po sition, To improve ability of physical actions for home/community/work/l ei (more content not included)... Normal [facility] Cerv Spine 2 or 3 Viewson Cerv Spine 2 or 3 Views [facility] [address] [place] [address] [id number] Cerv Spine 2 or 3 Views MR#: [id number] Acct: [id number] Name: ROSALIE RANDHAWA Rep #: [id number] : 1970 F 55 From: Garrett Wilson MD PCP: BAY Bustillo Status: DEP AMB Study: Cerv Spine 2 or 3 Views Date of Exam: 04/18/25 Exam# [id number] Ordering Dr: Elba Zapata PROCEDURE: CERV SPINE 2 OR 3 VIEWS 04/18/2025 REASON FOR EXAM: POST OP TECHNIQUE: Procedure Code: RADSPCL Modality: DX Procedure: CERV SPINE 2 OR 3 VIEWS COMPARISON: 03/2025. FINDINGS: C4 through C6 anterior cervical discectomy and fusion. Up to mild disc space narrowing of the non fused levels. Straightening of the normal cervical lordosis. RAD/Cerv Spine 2 or 3 Views IMPRESSION: Intact ACDF. Disclaimer: Reading Location: [address] CC: DELFINOC Heidy Hernandez; JESUSITA Palacios Boiler Tube Reamer: Signed Normal [facility] Orthopedic Visit Reporton Orthopedic Visit Report [facility] [address] [place] [address] OFFICE VISIT Date of Service: 04/18/25 MR#: [id number] Acct: [id number] Name: ROSALIE RANDHAWA Rep #: [id number] : 1970 Provider: JESUSITA Palacios Age/Sex: 55/F Location: [facility] Status: Signed Intake Vital Signs 10/13/24 08:05 03/23/25 10:00 Height 5 ft 4 in 5 ft 4 in Intake Visit Reasons: cervical spine Chief Complaint: Cervical spine 6 week post op Accompanied by: Self Is patient in pain?: No Allergies pseudoephedrine Allergy (Unknown, Verified 04/18/25 09:54) Other sumatriptan (From Imitrex) Adverse Reaction (Unknown, Verified 04/18/25 09:54) Swelling Medications ???Medication ???Instructions ???Recorded ???Confirmed ???Type L.acidophilus-L.plant arum-L.rhamnosus 1 cap PO DAILY 01/16/2204/18 History 1 billion cell capsule,delay rel (Probiotic Pearls Women's) Synthroid 100 mcg tablet 100 mcg PO DAILY #90 tabs 12/06/24 04/18/25 Rx (levothyroxine) atogepant 60 mg tablet (Qulipta) 60 mg PO DAILY 02/17/25 04/18/25 H istory rimegepant 75 mg disintegrating 75 mg PO DAILY PRN migraine 04/18/25 History tablet (Nurtec ODT) sertraline 100 mg tablet 100 mg PO QHS 02/17/25 04/18/25 Hi story PFSH Medical History Wears glasses Depression Low iron Pulmonary embolism Easy bruising Restless legs Injury of back Vertigo History of IBS Gastric reflux Non-smoker Asthma CPAP (continuous positive airway pressure) dependence Shortness of breath on exertion History of echocardiogram History of stress test Hx of colonic polyps Family history of colon cancer Colon cancer screening Elevated liver enzymes Mitral valve disease Obesity (BMI 30-39.9) Family history of pancreatic cancer Bilateral foot pain Skin mole Right hip pain Polyarthropathy Encounter for vitamin deficiency screening Left knee pain Change in skin mole Hypothyroidism Chronic back pain Foot pain Vitamin D deficiency Anxiety Migraine Mitral valve prolapse Hemorrhoids Cervical radiculopathy Pain in thoracic spine Myalgia Fatigue Post-menopausal Surgical History Hx of colonoscopy History of colonoscopy History of hysterectomy History of cholecystectomy Hx of tubal ligation Family History Grandmother Colon cancer at 51yrs Diabetes Breast cancer Grandfather Heart disease Mother Thyroid disorder Sister Thyroid disorder Father Hyperlipemia Uncle Cancer pancreatic Social History household members: spouse current occupational status: employed 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 Part of today???s visit was documented by Marcia Khan ATC, acting as scribe. ROSALIE GONZALES is a 55 year old F here today for s/p C4-6 ACDF DOS 03/07/[address] Monroy. Patient denies any pain in the neck today and states she is very glad that she had the surgery. She does not have any concerns at this time. She just wants the incision checked out. She states there is either a scab or a stitch that popped through that gets caught. The patient is very happy with the outcome of her surgery. She says that since her surgery she has not had any migraines. This surgery has also helped her radicular symptoms and she no longer has any arm pain. Ortho Exam General General: Yes no acute distress Neurologic: Yes alert and Yes oriented x3 Psychologic: Yes reasonable and appropriate Spine SPINE TESTING CERVICAL THORACIC LUMBAR Musculoskeletal Strength 0=absent - 5=normal Details: Neurological exam of the upper extremities shows 5X5 power. Normal sensation across all dermatomes. Physical examination of the neck shows a well-healing and dry surgical incision. Small suture noticed at the lateral edge of the incision. This was cut out today. Coding Level of Care Code Global Post Op Diagnoses Status post cervical spinal fusion Z98.1 Assessment and Plan Assessment and Plan (1) Status post cervical spinal fusion: Status: Acute Orders: Orders Cerv Spine 2 or 3 Views Today Z98.1 - Arthrodesis status Plan Obtained reviewed cervical x-rays today in the clinic. Independent interpretation of the x-rays was performed. X-rays (more content not included)... Normal [facility] Cerv Spine 2 or 3 Viewson Cerv Spine 2 or 3 Views [facility] [address] [place] [address] Cerv Spine 2 or 3 Views MR#: [id number] Acct: [id number] Name: ROSALIE RANDHAWA Rep #: [id number] : 1970 F 55 From: Portillo brown MD PCP: BAY Bustillo Status: DEP AMB Study: Cerv Spine 2 or 3 Views Date of Exam: 03/23/25 Exam# [id number] Ordering Dr: Elba Zapata PROCEDURE: CERV SPINE 2 OR 3 VIEWS 03/23/2025 REASON FOR EXAM: POST OP, FOLLOW UP TECHNIQUE: Procedure Code: RADSPCL Modality: DX Procedure: CERV SPINE 2 OR 3 VIEWS COMPARISON: 03/08/2025 FINDINGS: Status post anterior cervical fusion from C4 through C6 with disc spacers in place. No hardware failure. There is straightening of the cervical spine with loss of lumbar lordosis. Advanced degenerative disc disease is present at C6-7. No compression fracture deformity seen. Lateral masses are well aligned. No soft tissue abnormality noted in the soft tissues. No change since previous exam. RAD/Cerv Spine 2 or 3 Views IMPRESSION: Status post anterior cervical fusion from C4 through C6. Reading Location: [id number] CC: BAY Hernandez; JESUSITA Palacios Boiler Tube Reamer: Signed Normal [facility] Orthopedic Visit Reporton Orthopedic Visit Report [facility] [address] [place] [address] OFFICE VISIT Date of Service: 03/23/25 MR#: [id number] Acct: [id number] Name: ROSALIE RANDHAWA Rep #: [id number] : 1970 Provider: JESUSITA Palacios Age/Sex: 55/F Location: [facility] Status: Signed Intake Vital Signs 10/13/24 08:05 03/07/25 17:39 03/23/25 10:00 Height 5 ft 4 in 5 ft 4 in 5 ft 4 in Weight: 177 lb BMI 30.4 Intake Visit Reasons: cervical spine Chief Complaint: Cervical spine 2 week post op Accompanied by: Is patient in pain?: Yes Pain scale (1-10): 2 Allergies pseudoephedrine Allergy (Unknown, Verified 03/23/25 10:03) Other sumatriptan (From Imitrex) Adverse Reaction (Unknown, Verified 03/23/25 10:03) Swelling Medications ???Medication ???Instructions ???Recorded ???Confirmed ???Type L.acidophilus-L.plant arum-L.rhamnosus 1 cap PO DAILY 01/16/2203/23 History 1 billion cell capsule,delay rel (Probiotic Pearls Women's) Synthroid 100 mcg tablet 100 mcg PO DAILY #90 tabs 12/06/24 03/23/25 Rx (levothyroxine) atogepant 60 mg tablet (Qulipta) 60 mg PO DAILY 02/17/25 03/23/25 H istory rimegepant 75 mg disintegrating 75 mg PO DAILY PRN migraine 03/23/25 History tablet (Nurtec ODT) sertraline 100 mg tablet 100 mg PO QHS 02/17/25 03/23/25 Hi story meloxicam 15 mg tablet 15 mg PO DAILY #30 tabs 03/08/25 0 03/23/25 Rx methocarbamol 500 mg tablet 750 mg (1.5 x 500 mg) PO TID PRN 0 03/08/25 03/23/25 Rx pain/spasms #60 tabs Have you fallen in the past year?: No PFSH Medical History Wears glasses Depression Low iron Pulmonary embolism Easy bruising Restless legs Injury of back Vertigo History of IBS Gastric reflux Non-smoker Asthma CPAP (continuous positive airway pressure) dependence Shortness of breath on exertion History of echocardiogram History of stress test Hx of colonic polyps Family history of colon cancer Colon cancer screening Elevated liver enzymes Mitral valve disease Obesity (BMI 30-39.9) Family history of pancreatic cancer Bilateral foot pain Skin mole Right hip pain Polyarthropathy Encounter for vitamin deficiency screening Left knee pain Change in skin mole Hypothyroidism Chronic back pain Foot pain Vitamin D deficiency Anxiety Migraine Mitral valve prolapse Hemorrhoids Cervical radiculopathy Pain in thoracic spine Myalgia Fatigue Post-menopausal Surgical History Hx of colonoscopy History of colonoscopy History of hysterectomy History of cholecystectomy Hx of tubal ligation Family History Grandmother Colon cancer at 51yrs Diabetes Breast cancer Grandfather Heart disease Mother Thyroid disorder Sister Thyroid disorder Father Hyperlipemia Uncle Cancer pancreatic Social History household members: spouse current occupational status: employed 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 Part of today???s visit was documented by Osmin Oscar MA, acting as scribe. ROSALIE GONZALES is a 55 year old F here today for cervical spine 2 week post op C4-6 ACDF. Patient states that her pain is a 2. She is still wearing her neck collar 24 hours a day. Patient states that it's a pain wearing it, but she is also scared to take it off. She states that she hasn't had any injections in her neck. Patient states that she hasn't done any physical therapy. She states that she has been moving around, and walking a lot. Patient is no longer taking the hydrocodone???acetami nophen and is just taking the Tylenol, meloxicam and the methocarbamol. Patient says she has stopped taking the Contrave and does not plan to go back to taking it. She does report some very mild dysphagia related to dry meat however she denies any coughing and is able to get this down with water. Patient does feel like her symptoms prior to the surgery have gotten a little bit better. Ortho Exam General General: Yes no acute distress Neurologic: Yes alert and Yes oriented x3 Psychologic: Yes reasonable and appropriate Spine SPINE TESTING CERVICAL THORACIC LUMBAR Musculoskeletal Strength 0=absent - 5=normal Details: Neuro (more content not included)... Normal [facility] Bedside Glucoseon 03-15-2025 FINGERSTICK GLU 125 mg/dL High 74-106 [facility] Comment on above: Result Comment: MANJINDER GALLARDO OF PATIENT CARE PER NURSING PROTOCOL Performed By: #### L 501.080 ####[facility] [id number] [place], [place], [id number] Absolute lymphocyte countOrd ered By: Elba Zapata on 03-08-2025 Lymphocytes Auto (Unsp spec) [#/Vol] 1.14 10*3/uL 0.83-4.51 [facility] Absolute neutrophil countOrd ered By: Elba Zapata on 03-08-2025 Neutrophils (Bld) [#/Vol] 12.1 10*3/uL High 2.0-7.7 [facility] Anion gap in Serum or Plasma Ordered By: Elba Zapata on 03-08-2025 Anion gap [Moles/Vol] 13 mmol/L 5-15 [facility] Automated lymphocyte count a s percentage of total leukocytesOrdered By: Elba Zapata on 03-08-2025 Lymphocytes/100 WBC Auto (Unsp spec) 8.3 % Low 19-41 [facility] BUN/creatinine ratioOrdered By: Elba Zapata on 03-08-2025 Urea nitrogen/Creatinine [Mass ratio] 9.1 mg/mg Low 10-20 [facility] Basic Metabolic Profile (BMP )on 03-08-2025 BUN/CRE 9.1 RATIO Low 10-20 [facility] Comment on above: Performed By: #### L 500.2500, L100.0100 #### [facility] [address] [place], [address] Calcium [Mass/Vol] 9.2 mg/dL Normal 7.6-11.0 [facility] Comment on above: Performed By: #### L 500.2500, L100.0100 #### [facility] [address] [place], [address] Chloride [Moles/Vol] 105 mmol/L Normal 98-108 [facility] Comment on above: Performed By: #### L 500.2500, L100.0100 #### [facility] [address] [place], [address] CO2 [Moles/Vol] 19.7 mmol/L Low 21.0-32.0 [facility] Comment on above: Performed By: #### L 500.2500, L100.0100 #### [facility] [address] [place], [address] Creatinine [Mass/Vol] 0.78 mg/dL Normal 0.70-1.20 [facility] Comment on above: Performed By: #### L 500.2500, L100.0100 #### [facility] [address] [place], [address] ECRCL 86.11 ml/min Normal 50-250 [facility] Comment on above: Performed By: #### L 500.2500, L100.0100 #### [facility] [address] [place], [address] GAP 13 Normal 5-15 [facility] Comment on above: Performed By: #### L 500.2500, L100.0100 #### [facility] [address] [place], [address] GFR/1.73 sq M.predicted among non-blacks MDRD (S/P/Bld) [Vol rate/Area] 90 mL/min/{1.73_m2} Normal >60 [facility] Comment on above: Result Comment: mL/m in/1.73m2 CKD-EPI Creatinine Equation (2020) Performed By: #### L 500.2500, L100.0100 #### [facility] [address] [place], [address] Glucose [Mass/Vol] 123 mg/dL High 70-99 [facility] Comment on above: Performed By: #### L 500.2500, L100.0100 #### [facility] [address] [place], [address] Potassium [Moles/Vol] 4.8 mmol/L Normal 3.3-5.1 [facility] Comment on above: Result Comment: Hemo lysis present, Results??could be affected. ?? Performed By: #### L 500.2500, L100.0100 #### [facility] [address] [place], [address] Sodium [Moles/Vol] 138 mmol/L Normal 133-145 [facility] Comment on above: Performed By: #### L 500.2500, L100.0100 #### [facility] [address] [place], [address] Urea nitrogen [Mass/Vol] 7 mg/dL Normal 4-19 [facility] Comment on above: Performed By: #### L 500.2500, L100.0100 #### [facility] [address] [place], [address] Basophil percentageOrdered B y: Elba Zapata on 03-08-2025 Basophils/100 WBC (Bld) 0.1 % 0-1 [facility] CBC W/Diff, Automatedon Absolute Lymph 1.14 X10 3/uL Normal 0.83-4.51 [facility] Comment on above: Performed By: #### L 500.2500, L100.0100 #### [facility] [address] [place], [address] Absolute Neut 12.1 X10 3/uL High 2.0-7.7 [facility] Comment on above: Performed By: #### L 500.2500, L100.0100 #### [facility] [address] [place], [address] Basophils/100 WBC (Bld) 0.1 % Normal 0-1 [facility] Comment on above: Performed By: #### L 500.2500, L100.0100 #### [facility] [address] [place], [address] Eosinophils/100 WBC (Bld) 0.0 % Normal 0-5 [facility] Comment on above: Performed By: #### L 500.2500, L100.0100 #### [facility] [address] [place], [address] Erythrocyte distribution width (RBC) [Ratio] 12.3 % Normal 11.6-14.6 [facility] Comment on above: Performed By: #### L 500.2500, L100.0100 #### [facility] [address] [place], [address] Hematocrit (Bld) [Volume fraction] 36.8 % Low 37-47 [facility] Comment on above: Performed By: #### L 500.2500, L100.0100 #### [facility] [address] [place], [address] Hemoglobin (Bld) [Mass/Vol] 12.2 g/dL Normal 12.0-15.0 [facility] Comment on above: Performed By: #### L 500.2500, L100.0100 #### [facility] [address] [place], [address] IG% 0.300 Normal 0.0-0.9 [facility] Comment on above: Result Comment: IG% - Immature Granulocytes (promyelocytes, myelocytes and metamyelocytes) > 1% indicates that a LEFT SHIFT is Present. Performed By: #### L 500.2500, L100.0100 #### [facility] [address] [place], [address] Lymphocytes/100 WBC (Bld) 8.3 % Low 19-41 [facility] Comment on above: Performed By: #### L 500.2500, L100.0100 #### [facility] [address] [place], [address] MCH (RBC) [Entitic mass] 30.6 pg Normal 27.0-32.0 [facility] Comment on above: Performed By: #### L 500.2500, L100.0100 #### [facility] [address] [place], [address] MCHC (RBC) [Mass/Vol] 33.2 g/dL Normal 32-36 [facility] Comment on above: Performed By: #### L 500.2500, L100.0100 #### [facility] [address] [place], [address] MCV (RBC) [Entitic vol] 92.2 fL Normal 81-99 [facility] Comment on above: Performed By: #### L 500.2500, L100.0100 #### [facility] [address] [place], [address] Monocytes/100 WBC (Bld) 3.9 % Normal 0-10 [facility] Comment on above: Performed By: #### L 500.2500, L100.0100 #### [facility] [address] [place], [address] Neutrophils/100 WBC (Bld) 87.4 % High 47-70 [facility] Comment on above: Performed By: #### L 500.2500, L100.0100 #### [facility] [address] [place], [address] Nucleated RBC (Bld) [#/Vol] 0 10*3/uL Normal 0-5 [facility] Comment on above: Performed By: #### L 500.2500, L100.0100 #### [facility] [address] [place], [address] Platelet mean volume (Bld) [Entitic vol] 9.5 fL Normal 6.2-12.0 [facility] Comment on above: Performed By: #### L 500.2500, L100.0100 #### [facility] [address] [place], [address] Platelets (Bld) [#/Vol] 299 10*3/uL Normal 150-450 [facility] Comment on above: Performed By: #### L 500.2500, L100.0100 #### [facility] [address] [place], [address] RBC (Bld) [#/Vol] 3.99 10*6/uL Low 4.2-5.4 [facility] Comment on above: Performed By: #### L 500.2500, L100.0100 #### [facility] [address] [place], [address] RDW SD 41.6 fl Normal 35.1-43.9 [facility] Comment on above: Performed By: #### L 500.2500, L100.0100 #### [facility] [address] [place], [address] WBC (Bld) [#/Vol] 13.8 10*3/uL High 4.4-11.0 [facility] Comment on above: Performed By: #### L 500.2500, L100.0100 #### [facility] [address] [place], [address] Carbon dioxide, total [Moles /volume] in Central venous bloodOrdered By: Elba Zapata on 03-08-2025 CO2 [Moles/Vol] 19.7 mmol/L Low 21.0-32.0 [facility] Cerv Spine 2 or 3 Viewson Cerv Spine 2 or 3 Views [facility] [address] [place] [address] Cerv Spine 2 or 3 Views MR#: [id number] Acct: [id number] Name: ROSALIE RANDHAWA Rep #: [id number] : 1970 F 55 From: Maria Dolores liu MD PCP: BAY Bustillo Status: ADM MARK Study: Cerv Spine 2 or 3 Views Date of Exam: 03/08/25 Exam# [id number] Ordering Dr: Elba Zapata PROCEDURE: CERV SPINE 2 OR 3 VIEWS 03/08/2025 REASON FOR EXAM: S/P CERVICAL FUSION. TECHNIQUE: Procedure Code: RADSPCL Modality: DX Procedure: CERV SPINE 2 OR 3 VIEWS COMPARISON: MRI of the cervical spine on 12/09/2024. Radiographs on 10/13/2024. FINDINGS: Unremarkable spinal fusion metallic metallic plate and screws at C4, C5 and C6 levels. Unremarkable disc spacer at C4-C5. Unremarkable disc spacer at C5-C6. Soft tissue edema and swelling, benign surgical finding. There are diffuse spondylotic changes. Findings are demonstrated to by diffuse disc space narrowing, osteophyte formation and degenerative endplate sclerosis. There is diffuse facet joint arthropathy with secondary bilateral neural foramina narrowing. No fracture or dislocation is seen. No aggressive lytic or blastic bony lesion is noted. RAD/Cerv Spine 2 or 3 Views IMPRESSION: Unremarkable spinal fusion metallic plate and screws at C4, C5 and C6 levels. Unremarkable disc spacer at C4-C5. Unremarkable disc spacer at C5-C6. Soft tissue edema and swelling, benign surgical finding. Reading Location: [facility] CC: BAY Hernandez; JESUSITA Palacios Boiler Tube Reamer: Signed Normal [facility] Chloride assayOrdered By: Nilsa Zapata on 03-08-2025 Chloride [Moles/Vol] 105 mmol/L 98-108 [facility] Discharge Instructionon Discharge Instruction [facility] Medical Records Department [address] [place] [address] Instructions for Home/Discharge Instructions 03/08/25 0732 MR#: [id number] Acct: [id number] Name: ROSALIE RANDHAWA Rep #: [id number] : 1970 55 From: Elba [facility] PCP: BAY Bustillo Status:ADM MARK Discharge Instructions DC O2, CPAP, BIPAP needs Home O2 Discharge instructions: No Follow Up Care Test Results: Test results from this visit will be discussed in further detail at your follow-up appointment, if applicable. Discharge Plan Admission Admit Date/Time: 03/07/25 14:53 Attending Provider: Marcos Monroy Primary Care Provider: Heidy Hernandez Consulting Providers: Zenaida Reynoso Instructions Patient Instructions: Cervical Fusion Dc Additional Instructions / Restrictions: Keep Tegaderm and gauze clean and dry. After 5 days remove the Tegaderm and gauze and cover incision with a Band-Aid. Replace Band-Aid daily thereafter. Wear cervical collar full-time for the first 2 weeks. Eat soft solid foods as needed for dysphagia. Sleep in a recliner to help with swelling. No bending, lifting, twisting. Follow-up in clinic in 2 weeks. Discharge Orders/Prescriptions Prescriptions: New acetaminophen 500 mg Tablet 500 mg PO Q6H Qty: 30 0RF hydrocodone-acetamino phen 5-325 mg Tablet 1 tab PO Q6H PRN (Reason: pain) 7 Days Qty: 28 0RF methocarbamol 500 mg Tablet 750 mg PO TID PRN (Reason: pain/spasms) Qty: 60 0RF sennosides-docusate sodium [Stimulant Laxative Plus] 8.6-50 mg Tablet 2 tab PO BID PRN (Reason: constipation) Qty: 14 0RF meloxicam 15 mg Tablet 15 mg PO DAILY Qty: 30 0RF Continued Probiotic Pearls Women's 1 billion cell capsule,delayed release(DR/EC) 1 cap PO DAILY Nurtec ODT 75 mg tablet,disintegrating 75 mg PO DAILY PRN (Reason: migraine) Qulipta 60 mg tablet 60 mg PO DAILY sertraline 100 mg tablet 100 mg PO QHS levothyroxine [Synthroid] 100 mcg tablet 100 mcg PO DAILY Qty: 90 2RF Held Contrave 8-90 mg tablet extended release 2 tab PO BID 90 Days Qty: 360 0RF Hold Instructions: Resume on 03/15/25. hold until done taking hydrocodone-acetamino phen Discontinued methocarbamol 500 mg tablet 500 mg PO TID PRN (Reason: pain/spasms) Qty: 60 0RF Other Ambulatory Orders: 12 Lead EKG (Routine) Timeframe: 1 Day Location: None Selected Ordered By: Dr. Marcos Monroy Referrals / Follow Up: Oleksandr Holbrook MD [Med Staff - Active Staff] - Disposition Disposition (needs filled in before D/C Order can be placed): Home, Self Care 03/08/25 1158 [facility] CC: BAY Hernandez; Dr. Zenaida Reynoso MD Signed Normal [facility] Eosinophil percentageOrdered By: Elba Zapata on 03-08-2025 Eosinophils/100 WBC (Bld) 0.0 % 0-5 [facility] Erythrocyte distribution wid th ratioOrdered By: Elba Zapata on 03-08-2025 Erythrocyte distribution width (RBC) [Ratio] 12.3 % 11.6-14.6 [facility] Erythrocyte distribution wid th standard deviationOrdered By: Elba Zapata on 03-08-2025 Erythrocyte distribution width (RBC) [Ratio] 41.6 fl 35.1-43.9 [facility] Glomerular filtration rate ( GFR) estimation/1.73 sq m using serum, plasma, or whole bOrdered By: Elba Zapata on 03-08-2025 GFR/1.73 sq M.predicted among non-blacks MDRD (S/P/Bld) [Vol rate/Area] 90 mL/min/{1.73_m2} >60 [facility] Comment on above: mL/min/1.73m2 CKD-EP I Creatinine Equation (2020) Hematocrit Auto (Bld) [Volum e fraction]Ordered By: Elba Zapata on 03-08-2025 Hematocrit (Bld) [Volume fraction] 36.8 % Low 37-47 [facility] Hemoglobin measurementOrdere d By: Elba Zapata on 03-08-2025 Hemoglobin (Bld) [Mass/Vol] 12.2 g/dL 12.0-15.0 [facility] Immature granulocytes/100 WB C Auto (Bld)Ordered By: Elba Zapata on 03-08-2025 Immature granulocytes/100 WBC (Bld) 0.300 % 0.0-0.9 [facility] Comment on above: IG% - Immature Granu locytes (promyelocytes, myelocytes and metamyelocytes) > 1% indicates that a LEFT SHIFT is Present. MCV (mean corpuscular volume ) determinationOrdered By: Elba Zapata on 03-08-2025 MCV (RBC) [Entitic vol] 92.2 fL 81-99 [facility] Mean corpuscular hemoglobin (MCH) determinationOrdered By: Elba Zapata 03-08-2025 MCH (RBC) [Entitic mass] 30.6 pg 27.0-32.0 [facility] Mean corpuscular hemoglobin concentration (MCHC) determinationOrdered By: Elba Zapata 03-08-2025 MCHC (RBC) [Mass/Vol] 33.2 g/dL 32-36 [facility] Mean platelet volume determi nationOrdered By: Elba Zapata on 03-08-2025 Platelet mean volume (Bld) [Entitic vol] 9.5 fL 6.2-12.0 [facility] Monocyte percentageOrdered B y: Elba Zapata on 03-08-2025 Monocytes/100 WBC (Bld) 3.9 % 0-10 [facility] Neutrophil percentageOrdered By: Elba Zapata on 03-08-2025 Neutrophils/100 WBC (Bld) 87.4 % High 47-70 [facility] Nucleated red blood cell per centageOrdered By: Elba Zapata on 03-08-2025 Nucleated RBC/100 WBC (Bld) [Ratio] 0 % 0-5 [facility] Platelet countOrdered By: Nilsa Zapata on 03-08-2025 Platelets (Bld) [#/Vol] 299 10*3/uL 150-450 [facility] Potassium measurement (mass/ volume)Ordered By: Elba Zapata on 03-08-2025 Potassium (Unsp spec) [Mass/Vol] 4.8 mmol/L 3.3-5.1 [facility] Comment on above: Hemolysis present, R esults could be affected. RBC Auto (Bld) [#/Vol]Ordere d By: Elba Zapata on 03-08-2025 RBC (Bld) [#/Vol] 3.99 10*6/uL Low 4.2-5.4 [facility] Serum creatinine measurement (mass/volume)Ordered By: Elba Zapata on 03-08-2025 Creatinine [Mass/Vol] 0.78 mg/dL 0.70-1.20 [facility] Serum glucose measurement (m ass/volume)Ordered By: Elba Zapata on 03-08-2025 Glucose [Mass/Vol] 123 mg/dL High 70-99 [facility] Serum or plasma calcium elizabeth urement (mass/volume)Ordered By: Elba Zapata on 03-08-2025 Calcium [Mass/Vol] 9.2 mg/dL 7.6-11.0 [facility] Serum or plasma urea nitroge n measurement (mass/volume)Ordered By: Elba Zapata on 03-08-2025 Urea nitrogen [Mass/Vol] 7 mg/dL 4-19 [facility] Sodium levelOrdered By: Lala Zapata on 03-08-2025 Sodium [Moles/Vol] 138 mmol/L 133-145 [facility] White blood cell (WBC) count Ordered By: Elba Zapata on 03-08-2025 WBC (Bld) [#/Vol] 13.8 10*3/uL High 4.4-11.0 [facility] Cerv Spine 2 or 3 Viewson Cerv Spine 2 or 3 Views [facility] [address] [place] [address] Cerv Spine 2 or 3 Views MR#: [id number] Acct: [id number] Name: ROSALIE RANDHAWA Rep #: [id number] : 1970 F 55 From: Cecilio Grider MD PCP: BAY Bustillo Status: ADM MARK Study: Cerv Spine 2 or 3 Views Date of Exam: 03/07/25 Exam# [id number] Ordering Dr: Marcos Monroy MD PROCEDURE: CERV SPINE 2 OR 3 VIEWS 03/07/2025 REASON FOR EXAM: ANTERIOR CERVICAL FUSION C4-5 C5-6 TECHNIQUE: Procedure Code: RADSPCL Modality: DX Procedure: CERV SPINE 2 OR 3 VIEWS COMPARISON: Cervical spine series, 04/08/2025 FINDINGS: 2 images were obtained intraoperatively for ACDF, C4 through C6. Fluoro time: 12.3 seconds. Dose: 0.67 mGy. RAD/Cerv Spine 2 or 3 Views IMPRESSION: As per findings. Reading Location: [id number] CC: DELFINOC Heidy Hernandez; Dr. Marcos Monroy MD Boiler Tube Reamer: Signed Normal [facility] Consultation - Hospitaliston 03-07-2025 Consultation - Hospitalist [facility] Medical Records Department [address] [place] [address] Consultation - Hospitalist 03/07/25 1742 MR#: [id number] Acct: [id number] Name: ROSALIE RANDHAWA Rep #: [id number] : 1970 55 From: Estephania Castano MD PCP: BAY Bustillo Status:ADM MARK Location: MS3 [id number] Assessment Plan Assessment/Plan (1) Hypothyroidism: PLAN: Plan #Hypothyroidism -Continue Synthroid #Depression/anxiety -Continue home medications #CALI - Patient has home NIPPV but given positioning of collar unsure how well this would be able to be accommodated given full facemask on home machine and this had not been brought in from home - Family member at bedside reports patient can go a night without using the CPAP and does okay, she will be tired the next day but otherwise no complaints - Discussed with nurse, advised to keep patient in a semiupright position - If needed can have respiratory try to fit a mask/attempt to accommodate however given report that she can go for a day without NIPPV without deleterious side effects we will assess tolerability, again advised that she is not laid in flat position # History of migraines - Noted - Takes as needed Rimegepant on outpatient basis #C4-5 spondylolisthesis, 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 Monroy 03/07/25 - Management/pain management per primary #DVT ppx: Timing and agent at discretion of primary Estephania Castano MD Time spent in the patient's overall evaluation, decision-making process, review of diagnostic data, adjustment of management, discussion with other providers, nursing and ancillary staff involved in patient's care documentation, 16 Minutes HPI Consult Data Date of Consult: 03/07/25 HPI Narrative Reason for Consultation: Post op med management HPI Narrative: ROSALIE GONZALES, is a 55-year-old female history of hypothyroidism, anxiety, depression, migraines, CALI who presented [facility] 03/07/2025 for anterior cervical disc fusion. Hospitalist consulted postoperatively for medical management. Patient evaluated at bedside. Patient just arrived from the floor and had received pain medication, tired, would wake up but would quickly fall back asleep. [facility] Medical History Wears glasses Depression Low iron Pulmonary embolism Easy bruising Restless legs Injury of back Vertigo History of IBS Gastric reflux Non-smoker Asthma CPAP (continuous positive airway pressure) dependence Shortness of breath on exertion History of echocardiogram History of stress test Hx of colonic polyps Family history of colon cancer Colon cancer screening Elevated liver enzymes Mitral valve disease Obesity (BMI 30-39.9) Family history of pancreatic cancer Bilateral foot pain Skin mole Right hip pain Polyarthropathy Encounter for vitamin deficiency screening Left knee pain Change in skin mole Hypothyroidism Chronic back pain Foot pain Vitamin D deficiency Anxiety Migraine Mitral valve prolapse Hemorrhoids Cervical radiculopathy Pain in thoracic spine Myalgia Fatigue Post-menopausal Home Medications ???Medication ???Instructions ???Recorded ???Last Taken ???Type L.acidophilus-L.plant arum-L.rhamnosus 1 cap PO DAILY 01/16/22 Unkno wn History 1 billion cell capsule,delay rel (Probiotic Pearls Women's) Synthroid 100 mcg tablet 100 mcg PO DAILY #90 tabs 12/06/24 03/07/25 Rx (levothyroxine) naltrexone 8 mg-bupropion 90 mg 2 tab PO BID 3 months #360 tabs 03/06/25 Rx tablet,extended release (Contrave) methocarbamol 500 mg tablet 500 mg PO TID PRN pain/spasms #60 02/13/25 03/06/25 Rx tabs atogepant 60 mg tablet (Qulipta) 60 mg PO DAILY 02/17/25 03/06/25 H istory rimegepant 75 mg disintegrating 75 mg PO DAILY PRN migraine 02/28/25 History tablet (Nurtec ODT) sertraline 100 mg tablet 100 mg PO QHS 02/17/25 03/06/25 Hi story Allergy/AdvReac Type Severity Reaction Status Date / Time pseudoephedrine Allergy Unknown Other Verified 03/07/25 10:15 sumatriptan (From Imitrex) AdvReac Unknown Swelling Verified 03/07/25 10:15 Family History Grandmother Colon cancer at 51yrs Diabetes Breast cancer Grandfather Heart disease Mother Thyroid disorder Sister Thyroid disorder Father Hyperlipemia Uncle Cancer pancreatic Surgical History Hx of colonoscopy History of colonoscopy History of hysterectomy History of cholecystectomy Hx of tubal ligation Social History household members: spouse current o (more content not included)... Normal [facility] deOrdered By: Marcos Monroy on 03-07-2025 Glucose [Mass/Vol] 125 mg/dL High 74-106 [facility] Comment on above: MANAGEMENT OF PATIEN T CARE PER NURSING PROTOCOL MR/POSTOP.ANEon 03-07-2025 MR/POSTOP.ANE [facility] Medical Records Department [address] [place] [address] Anesthesia Postop Eval I 03/07/25 1459 MR#: [id number] Acct: [id number] Name: ROSALIE RANDHAWA Rep #: [id number] : 1970 55 From: Amy Gillespie CRNA PCP: BAY Bustillo Status:REG [facility] Y Race: C Location: [place] [address] Anesthesia: Postop Eval I Current Vital Signs Temperature: 97 F Pulse Rate: 74 Blood Pressure: 116/71 Respiratory Rate: 16 Pulse Ox: 95 Oxygen Delivery Method: Room Air Assessment Airway patent: Yes Spontaneous unlabored respirations: Yes Mental status: Awake and Calm nausea: No Vomiting: No Anesthesia Complication: No Fluid Hydration Crystalloid volume administer (ml): 2,000 Total IV fluid infused: 2,000 Progress Note Anesthesia document: Postop Eval 1 completed: Yes 03/07/25 1500 Date Amy Rao Signature: Date CC: Signed Normal [facility] MR/[id number] 03-07-2025 MR/POSTOPAN2 [facility] Medical Records Department [address] [place] [address] Anesthesia Postop Eval II 03/07/25 1604 MR#: [id number] Acct: [id number] Name: ROSALIE RANDHAWA Rep #: [id number] : 1970 55 From: Constantino Chong MD PCP: BAY Bustillo Status:ADM MARK Y Race: C Location: [place] [address] Anesthesia Postop Eval I Sum Postop Eval Completion status Anesthesia document: Postop Eval 1 completed: Yes Anesthesia Postop Eval I Summary Anesthesia Postop Eval I Summary: Anesthesia Postop Eval I: Assessment Summary Airway patent Yes 03/07/25 15:00 BAD CREDIT COLLECTOR.SKOBY Spontaneous unlabored Yes 03/07/25 15:00 BAD CREDIT COLLECTOR.SKOBY respirations Mental status Awake,Calm 03/07/25 15:00 BAD CREDIT COLLECTOR.SKOBY nausea No 03/07/25 15:00 BAD CREDIT COLLECTOR.SKOBY Vomiting No 03/07/25 15:00 BAD CREDIT COLLECTOR.SKOBY Anesthesia Postop Eval I: Fluid Summary Crystalloid volume administer 2,000 03/07/25 15:00 BAD CREDIT COLLECTOR.SKOBY (ml) Colloids volume administered ( ml) Blood Product volume administered (ml) Total IV fluid infused 2,000 03/07/25 15:00 BAD CREDIT COLLECTOR.SKOBY Anesthesia Postop Eval I: Summary Notes Anesthesia Complication No 03/07/25 15:00 BAD CREDIT COLLECTOR.ALONDRAOBDeepak Anesthesia Complication Comment: Post-operative progress note Anesthesia: Postop Eval II Evaluation Mental status: Awake Pain Level: 4 nausea: No Vomiting: No Complications Anesthesia Complication: No 03/07/25 1606 Date Constantino Chong MD Cosigner Signature: Date CC: Signed Normal [facility] Operative Reporton 5 Operative Report [facility] Medical Records Department [address] [place] [address] Operative Report 03/07/25 1453 MR#: [id number] Acct: [id number] Name: ROSALIE RANDHAWA Rep #: [id number] : 1970 55 From: Marcos Monroy MD PCP: BAY Bustillo Status:REG [facility] Location: AC03-1 Procedures Musculoskeletal 20xxx-29xxx: Other Procedure See Report Operative Report (Standard) Operative Information Date of Procedure: 03/07/25 Pre-Operative Diagnosis: C4-5 spondylolisthesis, C4-6 disc degeneration with stenosis, radiculomyelopathy Post-Operative Diagnosis: Same Surgery/Procedure Performed: C4-6 ACDF medical chemist: Martin [employer] Model: Elba Zapata Tasks completed by airline pilot/first officer: Closing, Removing tissue, Implanting device, Hemostasis: Electrocautery and Retracting Type of Anesthesia: General RN Documented Start/Stop Times: Operation Date: 03/07/25 12:00 Case Time Into Pre-Op 03/07/25 09:58 Out of Pre-Op 03/07/25 12:00 Anesthesia Start 03/07/25 12:08 Into Room 03/07/25 12:08 Procedure Start 03/07/25 12:48 Procedure End 03/07/25 14:34 Anesthesia End 03/07/25 14:51 Out of Room 03/07/25 14:51 Procedure Start Time: 12:48 Procedure Stop Time: 14:34 Select all DRAINS/GRAFTS/IMPLANT S that apply: Drains Drain details: Yamila , Graft Graft details: Cornerstone structural cortical cancellous strut allograft, DBX and Implanted device Implanted device details: Medtronic [place] Elite plate instrumentation Estimated Blood Loss: 30 cc Specimen collected: No Description of surgery: Preoperative diagnosis: C4-5 spondylolisthesis, C4-6 disc degeneration with stenosis, radiculomyelopathy Postoperative diagnosis: Same Name of procedure: C4-6 anterior cervical discectomy and fusion with plate instrumentation - Anterior cervical fusion C4-5, CPT code 62579 - Anterior plate instrumentation C4-6, CPT code 44332/59 - Anterior cervical fusion C5-6, CPT code 41131/51 -C4-5 structural allograft bone with DBX, CPT code 75901 - C5-6 structural allograft bone with DBX, CPT code 63427 Attending surgeon: Marcos Monroy M.D. Anesthesia: Gen. endotracheal Estimated blood loss: 30 mL Complications: None Instrumentation used: Medtronic [place] Elite plate, LASR corticocancellous block Indications: The patient is a pleasant 55-year-old lady who presented with neck pain, radiating pain to upper extremities, difficulty with dexterity and balance. MRI showed C4-5 spondylolisthesis, C4- 6 disc degeneration with stenosis. After prolonged course of nonsurgical treatment, the patient requested surgical treatment. All risks and benefits of the procedure were explained to the patient. The risks include but are not limited to infection, bleeding, injury to nerves and vessels, vertebral artery injury, spinal cord injury, paralysis, vocal cord paralysis, injury to esophagus, pseudoarthrosis, need for further procedures, adjacent segment degeneration. Procedure: The patient was identified in the preoperative suite using unique patient identifiers. Skin was marked consent was taken and all questions were answered. The patient was then brought back to the operative room and a timeout was performed. General endotracheal anesthesia was given. Intraoperative neuro monitoring leads were applied. The patient was carefully positioned supine on a regular OR table. A lateral view with a C-arm was done to identify the level and to define the incision. The anterior neck was then prepped and draped in the usual fashion. A final timeout was then performed. A transverse skin incision was taken to the left of midline. Subcutaneous tissue was then divided with Bovie. Platysma was identified and cut along the incision with scissors. The fascial interval between the sternocleidomastoid and the larynx was developed. Omohyoid was identified and retracted. The esophagus with the larynx was retracted medially to reach the prevertebral fascia. Marker x-ray was performed with bent spinal needle and disc space and levels were confirmed. Longus coli muscle was elevated on both sides at and above and below C4-6 discs. Self-retaining retractors were then placed. A long handle knife was then used to perform annulotomy at C4-5. Disc fragments were removed with the pituitary. Kiester pins were placed in C4 and C5 for disc distraction. Curettes and bur was utilized to remove cartilage from the endplates. Discectomy was performed laterally up to the uncovertebral joints. Posterior osteophytes were thinned down with the bur and adequate decompression in the central and foraminal areas were performed and PLL was thinned out. Once the disc space was prepared, trials of various sizes were utilized. Thorough irrigation was given. 7 mm LASR cortical cancellous allograft bone large footprint was then fashioned in such a way (more content not included)... Normal [facility] Electrocardiogram reportOrde red By: Yovani Doyle on 02-24-2025 EKG study [facility] [address] [place] [address] 12 Lead EKG 02/23/25 0703 MR#: [id number] Acct: [id number] Name: ROSALIE RANDHAWA Rep #:[id number] : 1970 55 From: Yovani Doyle MD Attending Dr: Dr. Marcos Monroy MD Status: PRE SDC Ordering Dr: Marcos Monroy MD Date: Location: [facility] Sex: F C Admitted: Test Reason : PREOP Blood Pressure : */* mmHG Vent. Rate : 80 BPM Atrial Rate : 80 BPM P-R Int : 144 ms QRS Dur : 80 ms QT Int : 374 ms P-R-T Axes : 36 15 50 degrees QTcB Int : 431 ms Normal sinus rhythm Normal ECG Confirmed by YOVANI DOYLE MD ([id number]), photography editor YARITZA JOINER ([id number]) on 02/24/2025 7:35:55 AM Referred By: Marcos Monroy Confirmed By: YOVANI DOYLE MD 02/24/25 0735 Date _ Yovani Doyle MD CC: GROUNDSKEEPING MAINTENANCE WORKER-C Heidy Hernandez; Dr. Marcos Monroy MD ~ Signed [facility] Other Hepatitis A AB, Totalon 02-04 HEPATITIS A,TOT Negative Normal Negative [facility] Comment on above: Result Comment: Comm ent: The HAV total antibody assay detects both IgG and IgM but does not differentiate between them. A negative result suggests susceptibility to infection. A positive result could be due to vaccination, previously resolved infection or active infection. Testing for HAV IgM should be performed if active HAV infection is suspected. [facility] offers profiles that will automatically reflex positive HAV total antibody results to IgM (e.g., panel #[id number] HAV Antibody w/ Rfx). Performed at: [address] [id number] It Communications Manager: Raj Kinsey PhD, Phone: [phone] Performed By: #### B RC, L100.0100, L501.5200, L501.9985, BTSPAT, L3890.6301, [id number], L500.2500, L3100.0300, M100.651, L3890.6006, L3890.6202 ####[facility] [id number] [place], [address] MRSA/SAID NASAL SCREENon MRSA+SAID SCRN Reason for Exam: Surgery MRSA MRSA Negative S. AUREUS S. aureus Negative Normal [facility] Comment on above: Performed By: #### B RC, L100.0100, L501.5200, L501.9985, BTSPAT, L3890.6301, [id number], L500.2500, L3100.0300, M100.651, L3890.6006, L3890.6202 ####[facility] [address] [place], [place], [address] 12 Lead EKGon 02-23-2025 12 Lead EKG [facility] [address] [place] [address] 12 Lead EKG 02/23/25 0703 MR#: [id number] Acct: [id number] Name: ROSALIE RANDHAWA Rep #: [id number] : 1970 55 From: Yovani Doyle MD Attending Dr: Dr. Marcos Monroy MD Status: PRE [facility] Ordering Dr: Marcos Monroy MD Date: 02/23/25 Location: [facility] Sex: F C Admitted: Test Reason : PREOP Blood Pressure : */* mmHG Vent. Rate : 80 BPM Atrial Rate : 80 BPM P-R Int : 144 ms QRS Dur : 80 ms QT Int : 374 ms P-R-T Axes : 36 15 50 degrees QTcB Int : 431 ms Normal sinus rhythm Normal ECG Confirmed by YOVANI DOYLE MD ([id number]), photography editor YARITZA JOINER ([id number]) on 02/24/2025 7:35:55 AM Referred By: Marcos Monroy Confirmed By: YOVANI DOYLE MD 02/24/2535 Date Yovani Doyle MD CC: BAY Hernandez; Dr. Marcos Monroy MD Signed [facility] [id number] 02-23-2025 ANTIBODY ID E [facility] Comment on above: Order Comment: Reaso n for Laboratory Test [id number]/ANNSCERVICAL FUSION Performed By: #### B RC, L100.0100, L501.5200, L501.9985, BTSPAT, L3890.6301, [id number], L500.2500, L3100.0300, M100.651, L3890.6006, L3890.6202 ####[facility] [address] [place], [address] BRCon 02-23-2025 [facility] Comment on above: Result Comment: [id number] AN XM COMPATIBLE [id number] AN XM COMPATIBLE Performed By: #### B RC, L100.0100, L501.5200, L501.9985, BTSPAT, L3890.6301, [id number], L500.2500, L3100.0300, M100.651, L3890.6006, L3890.6202 ####[facility] [address] [place], [address] Basic Metabolic Profile (BMP )on 02-23-2025 BUN/CRE 18.5 RATIO Normal 10-20 [facility] Comment on above: Performed By: #### B RC, L100.0100, L501.5200, L501.9985, BTSPAT, L3890.6301, [id number], L500.2500, L3100.0300, M100.651, L3890.6006, L3890.6202 ####[facility] [address] [place], [address] Calcium [Mass/Vol] 9.6 mg/dL Normal 7.6-11.0 [facility] Comment on above: Performed By: #### B RC, L100.0100, L501.5200, L501.9985, BTSPAT, L3890.6301, AFYL0583, L500.2500, L3100.0300, M100.651, L3890.6006, L3890.6202 ####[facility] [address] [place], [address] Chloride [Moles/Vol] 102 mmol/L Normal 98-108 [facility] Comment on above: Performed By: #### B RC, L100.0100, L501.5200, L501.9985, BTSPAT, L3890.6301, FMJG0651, L500.2500, L3100.0300, M100.651, L3890.6006, L3890.6202 ####[facility] [address] [place], [address] CO2 [Moles/Vol] 23.5 mmol/L Normal 21.0-32.0 [facility] Comment on above: Performed By: #### B RC, L100.0100, L501.5200, L501.9985, BTSPAT, L3890.6301, CHMX0980, L500.2500, L3100.0300, M100.651, L3890.6006, L3890.6202 ####[facility] [address] [place], [place], [address] Creatinine [Mass/Vol] 0.90 mg/dL Normal 0.70-1.20 [facility] Comment on above: Performed By: #### B RC, L100.0100, L501.5200, L501.9985, BTSPAT, L3890.6301, JZDR2024, L500.2500, L3100.0300, M100.651, L3890.6006, L3890.6202 ####[facility] [address] [place], [place], [phone] GAP 14 Normal 5-15 [facility] Comment on above: Performed By: #### B RC, L100.0100, L501.5200, L501.9985, BTSPAT, L3890.6301, JCFZ6066, L500.2500, L3100.0300, M100.651, L3890.6006, L3890.6202 ####[facility] [address] [facility] [place], [place], [phone] GFR/1.73 sq M.predicted among non-blacks MDRD (S/P/Bld) [Vol rate/Area] 76 mL/min/{1.73_m2} Normal >60 [facility] Comment on above: Result Comment: mL/m in/1.73m2 CKD-EPI Creatinine Equation (2020) Performed By: #### B RC, L100.0100, L501.5200, L501.9985, BTSPAT, L3890.6301, DDBR1302, L500.2500, L3100.0300, M100.651, L3890.6006, L3890.6202 ####[facility] [address] [place], [place], [phone] Glucose [Mass/Vol] 115 mg/dL High 70-99 [facility] Comment on above: Performed By: #### B RC, L100.0100, L501.5200, L501.9985, BTSPAT, L3890.6301, JOBG8739, L500.2500, L3100.0300, M100.651, L3890.6006, L3890.6202 ####[facility] [address] [place], [address] Potassium [Moles/Vol] 4.5 mmol/L Normal 3.3-5.1 [facility] Comment on above: Performed By: #### B RC, L100.0100, L501.5200, L501.9985, BTSPAT, L3890.6301, QIFL0804, L500.2500, L3100.0300, M100.651, L3890.6006, L3890.6202 ####[facility] [address] [place], [address] Sodium [Moles/Vol] 139 mmol/L Normal 133-145 [facility] Comment on above: Performed By: #### B RC, L100.0100, L501.5200, L501.9985, BTSPAT, L3890.6301, IWVU5843, L500.2500, L3100.0300, M100.651, L3890.6006, L3890.6202 ####[facility] [address] [place], [address] Urea nitrogen [Mass/Vol] 17 mg/dL Normal 4-19 [facility] Comment on above: Performed By: #### B RC, L100.0100, L501.5200, L501.9985, BTSPAT, L3890.6301, RDJE7548, L500.2500, L3100.0300, M100.651, L3890.6006, L3890.6202 ####[facility] [address] [place], [address] CBC W/Diff, Automatedon 08-2 -2024 Absolute Lymph 1.43 X10 3/uL Normal 0.83-4.51 [facility] Comment on above: Performed By: #### B RC, L100.0100, L501.5200, L501.9985, BTSPAT, L3890.6301, ZHEG5059, L500.2500, L3100.0300, M100.651, L3890.6006, L3890.6202 ####[facility] [address] [place], [address] Absolute Neut 4.2 X10 3/uL Normal 2.0-7.7 [facility] Comment on above: Performed By: #### B RC, L100.0100, L501.5200, L501.9985, BTSPAT, L3890.6301, VCYD3952, L500.2500, L3100.0300, M100.651, L3890.6006, L3890.6202 ####[facility] [address] [place], [place], [phone]) Basophils/100 WBC (Bld) 0.5 % Normal 0-1 [facility] Comment on above: Performed By: #### B RC, L100.0100, L501.5200, L501.9985, BTSPAT, L3890.6301, MOOI4715, L500.2500, L3100.0300, M100.651, L3890.6006, L3890.6202 ####[facility] [address] [place], [place], [phone](826) Eosinophils/100 WBC (Bld) 1.5 % Normal 0-5 [facility] Comment on above: Performed By: #### B RC, L100.0100, L501.5200, L501.9985, BTSPAT, L3890.6301, XSNE1918, L500.2500, L3100.0300, M100.651, L3890.6006, L3890.6202 ####[facility] [address] [place], [place], [phone]) Erythrocyte distribution width (RBC) [Ratio] 12.7 % Normal 11.6-14.6 [facility] Comment on above: Performed By: #### B RC, L100.0100, L501.5200, L501.9985, BTSPAT, L3890.6301, YDAU6730, L500.2500, L3100.0300, M100.651, L3890.6006, L3890.6202 ####[facility] [address] [place], [place], [phone](285) Hematocrit (Bld) [Volume fraction] 41.8 % Normal 37-47 [facility] Comment on above: Performed By: #### B RC, L100.0100, L501.5200, L501.9985, BTSPAT, L3890.6301, YACS7299, L500.2500, L3100.0300, M100.651, L3890.6006, L3890.6202 ####[facility] [address] [place], [address] Hemoglobin (Bld) [Mass/Vol] 14.0 g/dL Normal 12.0-15.0 [facility] Comment on above: Performed By: #### B RC, L100.0100, L501.5200, L501.9985, BTSPAT, L3890.6301, VKUS9846, L500.2500, L3100.0300, M100.651, L3890.6006, L3890.6202 ####[facility] [address] [place], [place], [phone] IG% 0.200 Normal 0.0-0.9 [facility] Comment on above: Result Comment: IG% - Immature Granulocytes (promyelocytes, myelocytes and metamyelocytes) > 1% indicates that a LEFT SHIFT is Present. Performed By: #### B RC, L100.0100, L501.5200, L501.9985, BTSPAT, L3890.6301, ZSSE3971, L500.2500, L3100.0300, M100.651, L3890.6006, L3890.6202 ####[facility] [address] [place], [address] Lymphocytes/100 WBC (Bld) 23.1 % Normal 19-41 [facility] Comment on above: Performed By: #### B RC, L100.0100, L501.5200, L501.9985, BTSPAT, L3890.6301, SXQB9390, L500.2500, L3100.0300, M100.651, L3890.6006, L3890.6202 ####[facility] [address] [place], [address] MCH (RBC) [Entitic mass] 30.6 pg Normal 27.0-32.0 [facility] Comment on above: Performed By: #### B RC, L100.0100, L501.5200, L501.9985, BTSPAT, L3890.6301, ZWES0430, L500.2500, L3100.0300, M100.651, L3890.6006, L3890.6202 ####[facility] [address] [place], [address] MCHC (RBC) [Mass/Vol] 33.5 g/dL Normal 32-36 [facility] Comment on above: Performed By: #### B RC, L100.0100, L501.5200, L501.9985, BTSPAT, L3890.6301, TPVP6424, L500.2500, L3100.0300, M100.651, L3890.6006, L3890.6202 ####[facility] [address] [place], [address] MCV (RBC) [Entitic vol] 91.3 fL Normal 81-99 [facility] Comment on above: Performed By: #### B RC, L100.0100, L501.5200, L501.9985, BTSPAT, L3890.6301, FTHZ2694, L500.2500, L3100.0300, M100.651, L3890.6006, L3890.6202 ####[facility] [address] [place], [address] Monocytes/100 WBC (Bld) 7.6 % Normal 0-10 [facility] Comment on above: Performed By: #### B RC, L100.0100, L501.5200, L501.9985, BTSPAT, L3890.6301, UIZQ4751, L500.2500, L3100.0300, M100.651, L3890.6006, L3890.6202 ####[facility] [address] [place], [address] Neutrophils/100 WBC (Bld) 67.1 % Normal 47-70 [facility] Comment on above: Performed By: #### B RC, L100.0100, L501.5200, L501.9985, BTSPAT, L3890.6301, NZJN4639, L500.2500, L3100.0300, M100.651, L3890.6006, L3890.6202 ####[facility] [address] [place], [address] Nucleated RBC (Bld) [#/Vol] 0 10*3/uL Normal 0-5 [facility] Comment on above: Performed By: #### B RC, L100.0100, L501.5200, L501.9985, BTSPAT, L3890.6301, EXQI3098, L500.2500, L3100.0300, M100.651, L3890.6006, L3890.6202 ####[facility] [address] [place], [address] Platelet mean volume (Bld) [Entitic vol] 8.8 fL Normal 6.2-12.0 [facility] Comment on above: Performed By: #### B RC, L100.0100, L501.5200, L501.9985, BTSPAT, L3890.6301, MOLL7733, L500.2500, L3100.0300, M100.651, L3890.6006, L3890.6202 ####[facility] [address] [place], [place], [phone](613) Platelets (Bld) [#/Vol] 326 10*3/uL Normal 150-450 [facility] Comment on above: Performed By: #### B RC, L100.0100, L501.5200, L501.9985, BTSPAT, L3890.6301, EEBD3299, L500.2500, L3100.0300, M100.651, L3890.6006, L3890.6202 ####[facility] [address] [place], [place], [phone](091) RBC (Bld) [#/Vol] 4.58 10*6/uL Normal 4.2-5.4 [facility] Comment on above: Performed By: #### B RC, L100.0100, L501.5200, L501.9985, BTSPAT, L3890.6301, VUFN3747, L500.2500, L3100.0300, M100.651, L3890.6006, L3890.6202 ####[facility] [address] [place], [place], [phone](707) RDW SD 42.6 fl Normal 35.1-43.9 [facility] Comment on above: Performed By: #### B RC, L100.0100, L501.5200, L501.9985, BTSPAT, L3890.6301, NWVM8273, L500.2500, L3100.0300, M100.651, L3890.6006, L3890.6202 ####[facility] [address] [place], [place], [phone] WBC (Bld) [#/Vol] 6.2 10*3/uL Normal 4.4-11.0 [facility] Comment on above: Performed By: #### B RC, L100.0100, L501.5200, L501.9985, BTSPAT, L3890.6301, ISYH2331, L500.2500, L3100.0300, M100.651, L3890.6006, L3890.6202 ####[facility] [address] [place], [address] HIVon 02-23-2025 HIV Non-Reactive Normal Nonreactive [facility] Comment on above: Result Comment: Non- Reactive Reactive Repeatedly reactive samples must be confirmed according to CDC recommended confirmatory algorithms. The subresults for either HIVAG or AHIV can be used as an aid in the selection of the confirmation algorithm for reactive samples. Send out specimens with Reactive results to [facility] for confirmation. Order the HIV antibody detection and differentiation: lc#[id number] Performed By: #### B RC, L100.0100, L501.5200, L501.9985, BTSPAT, L3890.6301, RRSF5374, L500.2500, L3100.0300, M100.651, L3890.6006, L3890.6202 ####[facility] [address] [place], [place], [address] Hemoglobin A1con 02-23-2025 HbA1c (Bld) [Mass fraction] 5.7 % Normal <=5.6 [facility] Comment on above: Result Comment: Norm al < 5.7 % Prediabetic 5.7 - 6.4 % Diabetic >or= 6.5 % Please note range changes. Performed By: #### B RC, L100.0100, L501.5200, L501.9985, BTSPAT, L3890.6301, GWZE1141, L500.2500, L3100.0300, M100.651, L3890.6006, L3890.6202 ####[facility] [address] [place], [place], [phone] Hemoglobin A1c percentageOrd ered By: Marcos Monroy on 02-23-2025 HbA1c (Bld) [Mass fraction] 5.7 % <5.7 [facility] Comment on above: Normal < 5.7 % Predi abetic 5.7 - 6.4 % Diabetic >or= 6.5 % Please note range changes. Hepatitis B Surface Antibody on 02-23-2025 HEP B Surf Ab REAC Normal [facility] Comment on above: Result Comment: <8.5 mIU/mL: Non-Reactive 8.5<= x <11.5 mIU/mL: Indeterminate >=11.5 mIU/mL: Reactive Non Reactive: Inconsistent with immunity less than <10 mIU/mL Reactive: Consistent with immunity greater than or equal to 10 mIU/mL Performed By: #### B RC, L100.0100, L501.5200, L501.9985, BTSPAT, L3890.6301, TLSQ1929, L500.2500, L3100.0300, M100.651, L3890.6006, L3890.6202 ####[facility] [address] [place], [place], [phone] Hepatitis C Antibodyon 02-23 Hepatitis C Ab Non-Reactive Normal Nonreactive [facility] Comment on above: Result Comment: Reac tive: Presumptive evidence of antibodies to HCV. Follow CDC recommendations for supplemental testing. Non-Reactive: Antibodies to HCV were not detected; does not exclude the possibility of exposure to HCV Reactive Results are presumptive evidence of antibodies to HCV. Follow CDC recommendations for supplemental testing. Order confirmation testing: HCV Quant by PCR testing - HCVPCR #[id number] Non Reactive: < 0.8 Equivocal: >/= 0.8 to < 1.0 Reactive: >/= 1.0 The CDC requires that a reactive/equivocal HCV antibody result be sent out for confirmation. HCV Quant by PCR testing. Performed By: #### B RC, L100.0100, L501.5200, L501.9985, BTSPAT, L3890.6301, ZDUY3141, L500.2500, L3100.0300, M100.651, L3890.6006, L3890.6202 ####[facility] [address] [facility] [place], [place], [address] MRSA screenOrdered By: Sloane Monroy on 02-23-2025 MRSA DNA ITZ+probe Ql (Unsp spec) [facility] Magnesiumon 02-23-2025 Magnesium [Mass/Vol] 2.3 mg/dL High 1.5-2.2 [facility] Comment on above: Performed By: #### B RC, L100.0100, L501.5200, L501.9985, BTSPAT, L3890.6301, WRLH4557, L500.2500, L3100.0300, M100.651, L3890.6006, L3890.6202 ####[facility] [address] [facility] [place], [place], [address] Magnesium measurement (mass/ volume)Ordered By: Marcos Monroy on 02-23-2025 Magnesium (Unsp spec) [Mass/Vol] 2.3 mg/dL High 1.5-2.2 [facility] No Panel InformationOrdered By: Marcos Monroy on 02-23-2025 HIV (1&2) Antibody Non-Reactive Nonreactive [facility] Comment on above: Non-ReactiveReactive Repeatedly reactive samples must be confirmed according to CDC recommended confirmatory algorithms. The subresults for either HIVAG or AHIV can be used as an aid in the selection of the confirmation algorithm for reactive samples.Send out specimens with Reactive results to [facility] for confirmation.Order the HIV antibody detection and differentiation: #[id number] Serum hepatitis B virus surf hank antibody detectionOrdered By: Marcos Monroy on 02-23-2025 HBV surface Ab Ql (S) REAC [facility] Comment on above: <8.5 mIU/mL: Non-Kristin ctive8.5<= x <11.5 mIU/mL: Indeterminate>=11.5 mIU/mL: Reactive Non Reactive: Inconsistent with immunity less than <10 mIU/mL Reactive: Consistent with immunity greater than or equal to 10 mIU/mL Type AND Screen - PAT ONLYon 02-23-2025 Ab SCREEN GEL Positive Normal [facility] Comment on above: Order Comment: Reaso n for Laboratory Test [id number]/ANNSCERVICAL FUSION Performed By: #### B RC, L100.0100, L501.5200, L501.9985, BTSPAT, L3890.6301, YAFA8568, L500.2500, L3100.0300, M100.651, L3890.6006, L3890.6202 ####[facility] [address] [place], [place], [address] Orthopedic Visit Reporton Orthopedic Visit Report [facility] [address] [place] [address] [address] [place] [address] OFFICE VISIT Date of Service: 02/21/25 MR#: [id number] Acct: [id number] Name: JASMYNE GONZALESROSALIE EVANS Rep #: [id number] : 1970 Provider: Dr. Marcos Monroy MD Age/Sex: 55/F Location: [facility] Status: Signed Intake Vital Signs 10/13/24 08:05 02/21/25 08:04 Height 5 ft 4 in 5 ft 4 in Weight: 182 lb 184 lb 4 oz BMI 31.2 31.6 Intake Visit Reasons: cervical spine Chief Complaint: Cervical spine pre-op Accompanied by: Is patient in pain?: Yes Pain scale (1-10): 10 Allergies pseudoephedrine Allergy (Unknown, Verified 02/21/25 08:05) Other sumatriptan (From Imitrex) Adverse Reaction (Unknown, Verified 02/21/25 08:05) Swelling Medications ???Medication ???Instructions ???Recorded ???Confirmed ???Type L.acidophilus-L.plant arum-L.rhamnosus 1 cap PO DAILY 01/16/2202/21 History 1 billion cell capsule,delay rel (Probiotic Pearls Women's) Synthroid 100 mcg tablet 100 mcg PO DAILY #90 tabs 12/06/24 02/21/25 Rx (levothyroxine) naltrexone 8 mg-bupropion 90 mg 2 tab PO BID 3 months #360 tabs 02/21/25 Rx tablet,extended release (Contrave) methocarbamol 500 mg tablet 500 mg PO TID PRN pain/spasms #60 02/13/25 02/21/25 Rx tabs atogepant 60 mg tablet (Qulipta) 60 mg PO DAILY 02/17/25 02/21/25 H istory rimegepant 75 mg disintegrating 75 mg PO DAILY PRN migraine 02/21/25 History tablet (Nurtec ODT) sertraline 100 mg tablet 100 mg PO QHS 02/17/25 02/21/25 Hi story PFSH Medical History Wears glasses Depression Low iron Pulmonary embolism Easy bruising Restless legs Injury of back Vertigo History of IBS Gastric reflux Non-smoker Asthma CPAP (continuous positive airway pressure) dependence Shortness of breath on exertion History of echocardiogram History of stress test Hx of colonic polyps Family history of colon cancer Colon cancer screening Elevated liver enzymes Mitral valve disease Obesity (BMI 30-39.9) Family history of pancreatic cancer Bilateral foot pain Skin mole Right hip pain Polyarthropathy Encounter for vitamin deficiency screening Left knee pain Change in skin mole Hypothyroidism Chronic back pain Foot pain Vitamin D deficiency Anxiety Migraine Mitral valve prolapse Hemorrhoids Cervical radiculopathy Pain in thoracic spine Myalgia Fatigue Post-menopausal Surgical History Hx of colonoscopy History of colonoscopy History of hysterectomy History of cholecystectomy Hx of tubal ligation Family History Grandmother Colon cancer at 51yrs Diabetes Breast cancer Grandfather Heart disease Mother Thyroid disorder Sister Thyroid disorder Father Hyperlipemia Uncle Cancer pancreatic Social History household members: spouse current occupational status: employed 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 Marcos Monroy MD 02/21/25 0758. Part of today???s visit was documented by Marcia Khan ATC, acting as scribe. RSOALIE GONZALES is a 55 year old F here today for pre-op for anterior cervical disc fusion C4-5 and C5-6 DOS 03/07/2025. Patient states her pain has been horrible the last week or so. She states she has had horrible migraines and pain. She denies any new injuries or accidents that would have caused the pain to worsen. She denies any recent injections. The patient is a 55-year-old female presenting for pre-operative evaluation and management of cervical radiculopathy. The patient reports experiencing constant pain and tightness in her shoulders, with a limited range of motion and frequent headaches, which have been persistent over the past week. She also notes a loss of strength in her hands, more pronounced on the left side, despite being right-handed. The patient has a history of mitral valve prolapse, diagnosed at the age of 27, for which she has not been under the care of a business development consultant recently. Her primary care physician has noted a slight murmur, but no significant concerns have been raised. She also has a history of sleep apnea, managed by a proj engineer, and has been cleared for surgery by her proj engineer. - Musculoskeletal: Reports constant shoulder pain a (more content not included)... Normal [facility] MR/PAT.ANEon 02-17-2025 MR/PAT.[facility] Medical Records Department [address] [place] [address] PAT - Anesthesia 02/17/25 1035 MR#: [id number] Acct: [id number] Name: ROSALIE RANDHAWA Rep #: [id number] : 1970 55 From: Steven Bright MD PCP: BAY Bustillo Status:PRE [facility] Y Race: C Location: [facility] Pre-Assessment Diagnosis/Proposed Procedure Planned Operative Procedure(s): (N/A) Anterior Cervical Fusion C4-5 and C5-6 Anesthesia History Anesthesia History - operating engineer apprentice: Anesthesia History - operating engineer apprentice Hx Hospitalization No 02/17/25 10:20 Any Problems With Anesthesia Yes: SLOW TO AWAKEN 02/17/25 10:20 Cholinesterase deficiency No 02/17/25 10:20 You/Your Family Experience No 02/17/25 10:20 fever (hyperthermia) with Relationship Recent Exposure to Contagious No 05/25/24 07:56 Disease Does patient have nerve No 02/17/25 10:20 stimulator Patient instructed to have device shut off --Does patient have Pacemaker or ICD? When Was Last Pacemaker Check QUESTION #4 FULL TEXT: You/Your Family Experience fever (hyperthermia) with Anesthesia Last Oral Intake Last Oral intake: Last Oral Intake NPO since Meds taken in AM with sips of water? Meds patient instructed to take am of surgery PONV PONV - operating engineer apprentice: PONV - operating engineer apprentice Female Yes 02/17/25 10:20 HX of Motion Sickness Yes 02/17/25 10:20 HX of N/V After Surgery No 02/17/25 10:20 Non-Smoker Yes 02/17/25 10:20 Duration of Surgery greater Yes 02/17/25 10:20 than 60 minutes Number of Risk Factors 4 02/17/25 10:20 PONV Score Severe Risk 02/17/25 10:20 Height Weight Height Weight: Anesthesia: Height Weight Height 5 ft 4 in 10/13/24 08:05 Respiratory Assessment Respiratory Assessment - operating engineer apprentice: Respiratory Tract Infection Hx - operating engineer apprentice Hx Respiratory Tract Infection No 02/17/25 10:20 STOP Sleep Apnea STOP Sleep Apnea - operating engineer apprentice: STOP Sleep Apnea - operating engineer apprentice Hx Hypertension No 02/17/25 10:20 Hx Sleep Apnea Yes 02/17/25 10:20 CPAP Yes 02/17/25 10:20 BIPAP No 02/17/25 10:20 Do you snore loudly (louder than talking or can be heard Do you often feel tired/ fatigued/ sleepy during daytime? Has anyone observed you stop breathing during sleep? STOP Results Positive 02/17/25 10:20 QUESTION #5 FULL TEXT : Do you snore loudly (louder than talking or can be heard through closed doors)? 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 Specify any problems Hx of Preganancy in last 3 N/A 02/17/25 10:20 Months Nurse Filling Out Transfusion NBUCHER 02/17/25 10:20 Questions: Date: 02/17/25 02/17/25 10:20 Time: 10:21 02/17/25 10:20 Patient unable to answer at this time (ie. confused, unrespo /Reproductio n History /Reproductiv e History - operating engineer apprentice: /Reproductiv e Hx- operating engineer apprentice Hx Now No 02/17/25 10:20 Gestational Age (in weeks): EDC: Hx Hx Para Hx Section SAB No 02/17/25 10:20 PFS Medical History Wears glasses Depression Low iron Pulmonary embolism Easy bruising Restless legs Injury of back Vertigo History of IBS Gastric reflux Non-smoker Asthma CPAP (continuous positive airway pressure) dependence Shortness of breath on exertion History of echocardiogram History of stress test Hx of colonic polyps Family history of colon cancer Colon cancer screening Elevated liver enzymes Mitral valve disease Obesity (BMI 30-39.9) Family history of pancreatic cancer Bilateral foot pain Skin mole Right hip pain Polyarthropathy Encounter for vitamin deficiency screening Left knee pain Change in skin mole Hypothyroidism Chronic back pain Foot pain Vitamin D deficiency Anxiety Migraine Mitral valve prolapse Hemorrhoids Cervical radiculopathy Pain in thoracic spine Myalgia Fatigue Post-menopausal Home Medications (more content not included)... Normal [facility] Orthopedic Visit Reporton Orthopedic Visit Report [facility] [address] [place] [address] OFFICE VISIT Date of Service: 12/13/24 MR#: [id number] Acct: [id number] Name: ROSALIE RANDHAWA Rep #: [id number] : 1970 Provider: JESUSITA Palacios Age/Sex: 54/F Location: [facility] Status: Signed Intake Vital Signs 10/13/24 08:05 Height 5 ft 4 in Weight: 182 lb BMI 31.2 Intake Visit Reasons: CERVICAL SPINE Chief Complaint: Cervical spine pain Allergies pseudoephedrine Allergy (Unknown, Verified 12/13/24 15:09) Other sumatriptan (From Imitrex) Adverse Reaction (Unknown, Verified 12/13/24 15:09) Swelling Medications ???Medication ???Instructions ???Recorded ???Confirmed ???Type L.acidophilus-L.plant arum-L.rhamnosus 1 cap PO DAILY 01/16/2212/13 History 1 billion cell capsule,delay rel (Probiotic Pearls Women's) apixaban 5 mg tablet (Eliquis) 5 mg PO BID 3 months #180 tabs 10/2712/13/24 Rx ubrogepant 100 mg tablet (Ubrelvy) 100 mg PO ONCE #12 tabs 01/13/24 12/13/24 Rx sertraline 100 mg tablet 100 mg PO DAILY #90 tabs 07/07/24 12/13/24 Rx propranolol 60 mg capsule,24 60 mg PO QHS #90 caps 07/25/2404/29 Rx hr,extended release naltrexone 8 mg-bupropion 90 mg 2 tab PO BID 3 months #360 tabs 12/13/24 Rx tablet,extended release (Contrave) Synthroid 100 mcg tablet 100 mcg PO DAILY #90 tabs 12/06/24 12/13/24 Rx (levothyroxine) methocarbamol 500 mg tablet 500 mg PO TID PRN pain/spasms #60 12/09/24 12/13/24 Rx tabs PFSH Medical History Wears glasses Depression Low iron Pulmonary embolism Easy bruising Restless legs Injury of back Vertigo History of IBS Gastric reflux Non-smoker Asthma CPAP (continuous positive airway pressure) dependence Shortness of breath on exertion History of echocardiogram History of stress test Hx of colonic polyps Family history of colon cancer Colon cancer screening Elevated liver enzymes Mitral valve disease Obesity (BMI 30-39.9) Family history of pancreatic cancer Bilateral foot pain Skin mole Right hip pain Polyarthropathy Encounter for vitamin deficiency screening Left knee pain Change in skin mole Hypothyroidism Chronic back pain Foot pain Vitamin D deficiency Anxiety Migraine Mitral valve prolapse Hemorrhoids Cervical radiculopathy Pain in thoracic spine Myalgia Fatigue Post-menopausal Surgical History Hx of colonoscopy History of colonoscopy History of hysterectomy History of cholecystectomy Hx of tubal ligation Family History Grandmother Colon cancer at 51yrs Diabetes Breast cancer Grandfather Heart disease Mother Thyroid disorder Sister Thyroid disorder Father Hyperlipemia Uncle Cancer pancreatic Social History household members: spouse current occupational status: employed 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 Part of today???s visit was documented by Tari MIRANDA, acting as scribe. ROSALIE GONZALES is a 54 year old F here today for MRI review of her cervical spine. She states that her tightness is less severe because of the muscle relaxer we prescribed her last time. She denies recent injection for the neck. Feels like she is drifting to the side more when walking and does drop items out of her hand such as a bowl. Not changing over several years. No diabetes, no heart or lung issues, no blood thinners. Sees pulmonology at the hospital for sleep apnea. No O2. HPI from 10/13/24: The pain is in the back of the neck. The pain starts at the janice and then runs all the way down to the the right and left side of the shoulder, the left side feels the worst. Patient states it feels like there is a kink in the neck.Gets numbness in her shoulder blades and into her deltoids and will occasionally get pain to her dorsal forearm and wrist. No balance issues. No dexterity issues but feels like her hands are weaker. This has been going on since she was a teenager. She doesn't remember injuring it. She woke up one morning and she couldn't turn her head. Over the years this has been gradually getting worse, with it worsening over the last 3 weeks. Denies any surgery, it makes it difficult through out the day because s (more content not included)... Normal [facility] Magnetic resonance imaging r eportOrdered By: Cecilio Grider on 12-12-2024 Study report [facility] [address] [place] [address] Spine Cervical (Routine) MR#: [id number] Acct: [id number] Name: ROSALIE RANDHAWA Rep #: [id number] : 1970 F 54 From: Royce Grider MD PCP: Dr. Oleksandr Holbrook MD Status: R EG CLI Study:Spine Cervical (Routine) Date of Exam: 12/09/24 Exam# [id number] Ordering Dr: Ricardo Zapata PROCEDURE: SPINE CERVICAL (ROUTINE) 12/09/2024 REASON FOR EXAM: PAIN TECHNIQUE: Multiplanar and multisequence images were obtained without IV contrast administration. COMPARISON: None. FINDINGS: Vertebrae: Cervical vertebral body heights are preserved. Bone marrow signal is unremarkable. Alignment: There is loss of the normal cervical lordosis.. Spinal Cord: Cervical spinal cord is of normal size and signal intensities. Structures at the foramen magnum are unremarkable. C2-3: There is a broad-based central disc protrusion. There is no facet arthropathy. There is no uncinate joint arthropathy. There is no central canal stenosis, lateral recess stenosis or foraminal narrowing. C3-4: There is a broad-based central disc protrusion. There is no facet arthropathy. There is no uncinate joint arthropathy. There is no central canal stenosis, lateral recess stenosis or foraminal narrowing. C4-5: There is a broad-based central disc protrusion. There is bilateral facet arthropathy. There is degenerative grade 1 anterolisthesis of C4 on C5. There is no central canal stenosis, lateral recessstenosis or foraminal narrowing. There are small Tarlov cysts noted bilaterally. C5-6: There is a broad-based right central and right lateral recess disc protrusion. There is an anterior disc protrusion. There is bilateral uncinate joint arthropathy, hsyky-scguigz-kqhp-le ft. There is compression and posterior displacement of the right side of the spinal cord. There is mild lateral recess stenosis and moderate foraminal narrowing on the right. There is a large Tarlov cyst on the left and small Tarlov cyst on the right. C6-7: There is a broad-based central disc protrusion. There is bilateral uncinate joint arthropathy, pvtxw-ppozuyo-kzpx-le ft. There is no central canal stenosis, lateral recess stenosis or foraminal narrowing. There are moderate Tarlov cysts bilaterally. C7-T1: There is no evidence of disc protrusion. There is no central canal stenosis, lateral recess stenosis or foraminal narrowing. There are large Tarlov cysts bilaterally. The paravertebral soft tissues are unremarkable. MRI/Spine Cervical (Routine) IMPRESSION: 1. Degenerative disc disease C2-3 through C6-7 with compression of the spinal cord at C5-6. 2. There is central canal stenosis and foraminal narrowing at C5-6, as described. 3. There are Tarlov cysts at multiple levels as described. Reading Location: [place] [address] CC: JESUSITA Palacios; Dr. 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 Oleksandr Holbrook MD Status: REG CLI Study: Spine Cervical (Routine) Date of Exam: Exam# [id number] Ordering Dr: Elba Zapata PROCEDURE: SPINE CERVICAL (ROUTINE) 12/09/2024 REASON FOR EXAM: PAIN TECHNIQUE: Multiplanar and multisequence images were obtained without IV contrast administration. COMPARISON: None. FINDINGS: Vertebrae: Cervical vertebral body heights are preserved. Bone marrow signal is unremarkable. Alignment: There is loss of the normal cervical lordosis.. Spinal Cord: Cervical spinal cord is of normal size and signal intensities. Structures at the foramen magnum are unremarkable. C2-3: There is a broad-based central disc protrusion. There is no facet arthropathy. There is no uncinate joint arthropathy. There is no central canal stenosis, lateral recess stenosis or foraminal narrowing. C3-4: There is a broad-based central disc protrusion. There is no facet arthropathy. There is no uncinate joint arthropathy. There is no central canal stenosis, lateral recess stenosis or foraminal narrowing. C4-5: There is a broad-based central disc protrusion. There is bilateral facet arthropathy. There is degenerative grade 1 anterolisthesis of C4 on C5. There is no central canal stenosis, lateral recess stenosis or foraminal narrowing. There are small Tarlov cysts noted bilaterally. C5-6: There is a broad-based right central and right lateral recess disc protrusion. There is an anterior disc protrusion. There is bilateral uncinate joint arthropathy, oahxf-hzmoujt-kmpv-le ft. There is compression and posterior displacement of the right side of the spinal cord. There is mild lateral recess stenosis and moderate foraminal narrowing on the right. There is a large Tarlov cyst on the left and small Tarlov cyst on the right. C6-7: There is a broad-based central disc protrusion. There is bilateral uncinate joint arthropathy, wznnn-vggmqim-kkvm-le ft. There is no central canal stenosis, lateral recess stenosis or foraminal narrowing. There are moderate Tarlov cysts bilaterally. C7-T1: There is no evidence of disc protrusion. There is no central canal stenosis, lateral recess stenosis or foraminal narrowing. There are large Tarlov cysts bilaterally. The paravertebral soft tissues are unremarkable. MRI/Spine Cervical (Routine) IMPRESSION: 1. Degenerative disc disease C2-3 through C6-7 with compression of the spinal cord at C5-6. 2. There is central canal stenosis and foraminal narrowing at C5-6, as described. 3. There are Tarlov cysts at multiple levels as described. Reading Location: [place] [address] CC: JESUSITA Palacios; Dr. Oleksandr Holbrook MD Boiler Tube Reamer: Signed Normal [facility] Cerv Spine 4 or 5 Viewson Cerv Spine 4 or 5 Views [facility] [address] [place] [address] Cerv Spine 4 or 5 Views MR#: [id number] Acct: [id number] Name: ROSALIE RANDHAWA Rep #: [id number] : 1970 F 54 From: James Schwartz i, DO PCP: Dr. Oleksandr Hlobrook MD Status: DEP AMB Study: Cerv Spine 4 or 5 Views Date of Exam: 10/13/24 Exam# [id number] Ordering Dr: Elba Zapata PROCEDURE: Cervical spine radiographs, four views 10/13/2024 REASON FOR EXAM: Chronic neck pain. No known injury. TECHNIQUE: Four views of the cervical spine were obtained. COMPARISON: None available FINDINGS: Four views of the cervical spine were obtained. On the lateral projection, the cervical spine is imaged from the skull base through the C7-T1 interspace. There is reversal of the normal cervical lordosis. Bones are osteopenic. Grade 1 retrolisthesis of C5 relative to C4 and C6. Minimal grade 1 retrolisthesis of C6 relative to C7. No acute cervical vertebral body fracture. Severe degenerative disc disease at C5-6 and C6-7. Prevertebral soft tissues are within normal limits. No evidence of significant instability on flexion and extension views. RAD/Cerv Spine 4 or 5 Views IMPRESSION: Osteopenia. No acute bony abnormality of the cervical spine. Reversal of the normal cervical lordosis may be due to muscle spasm or positioning. Severe degenerative disc disease at C5-6 and C6-7. No evidence of significant instability on flexion and extension views. Reading Location: [place] CC: JESUSITA Palacios; Dr. Oleksandr Holbrook MD Boiler Tube Reamer: Signed Normal [facility] Orthopedic Visit Reporton Orthopedic Visit Report [facility] [address] [place] [address] OFFICE VISIT Date of Service: 10/13/24 MR#: [id number] Acct: [id number] Name: ROSALIE RANDHAWA Rep #: [id number] : 1970 Provider: JESUSITA Palacios Age/Sex: 54/F Location: [facility] Status: Signed Intake Vital Signs 05/25/24 07:56 10/13/24 08:05 Height 5 ft 4 in 5 ft 4 in Weight: 182 lb BMI 31.2 Intake Visit Reasons: CERVICAL SPINE Chief Complaint: Cervical spine pain Accompanied by: Self Is patient in pain?: Yes Pain scale (1-10): 3 Allergies pseudoephedrine Allergy (Unknown, Verified 10/13/24 08:11) Other sumatriptan (From Imitrex) Adverse Reaction (Unknown, Verified 10/13/24 08:11) Swelling Medications ???Medication ???Instructions ???Recorded ???Confirmed ???Type L.acidophilus-L.plant arum-L.rhamnosus 1 cap PO DAILY 01/16/2210/13 History 1 billion cell capsule,delay rel (Probiotic Pearls Women's) apixaban 5 mg tablet (Eliquis) 5 mg PO BID 3 months #180 tabs 10/2710/13/24 Rx ubrogepant 100 mg tablet (Ubrelvy) 100 mg PO ONCE #12 tabs 01/13/24 10/13/24 Rx Synthroid 100 mcg tablet 100 mcg PO DAILY #90 tabs 03/09/24 10/13/24 Rx (levothyroxine) naltrexone 8 mg-bupropion 90 mg 2 tab PO BID 05/23/24 10/13/24 His tory tablet,extended release (Contrave) sertraline 100 mg tablet 100 mg PO DAILY #90 tabs 07/07/24 10/13/24 Rx propranolol 60 mg capsule,24 60 mg PO QHS #90 caps 07/25/2404/29 Rx hr,extended release methocarbamol 500 mg tablet 500 mg PO TID PRN pain/spasms #60 10/13/24 10/13/24 Rx tabs Have you fallen in the past year?: No PFSH Medical History Wears glasses Depression Low iron Pulmonary embolism Easy bruising Restless legs Injury of back Vertigo History of IBS Gastric reflux Non-smoker Asthma CPAP (continuous positive airway pressure) dependence Shortness of breath on exertion History of echocardiogram History of stress test Hx of colonic polyps Family history of colon cancer Colon cancer screening Elevated liver enzymes Mitral valve disease Obesity (BMI 30-39.9) Family history of pancreatic cancer Bilateral foot pain Skin mole Right hip pain Polyarthropathy Encounter for vitamin deficiency screening Left knee pain Change in skin mole Hypothyroidism Chronic back pain Foot pain Vitamin D deficiency Anxiety Migraine Mitral valve prolapse Hemorrhoids Cervical radiculopathy Pain in thoracic spine Myalgia Fatigue Post-menopausal Surgical History Hx of colonoscopy History of colonoscopy History of hysterectomy History of cholecystectomy Hx of tubal ligation Family History Grandmother Colon cancer at 51yrs Diabetes Breast cancer Grandfather Heart disease Mother Thyroid disorder Sister Thyroid disorder Father Hyperlipemia Uncle Cancer pancreatic Social History household members: spouse current occupational status: employed 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 Part of today???s visit was documented by Osmin Oscar MA, acting as scribe. ROSALIE GONZALES is a 54 year old F here today for cervical spine pain. Pain (location, quality, quantity, radiation):The pain is in the back of the neck. The pain starts at the janice and then runs all the way down to the the right and left side of the shoulder, the left side feels the worst. Patient states it feels like there is a kink in the neck.Gets numbness in her shoulder blades and into her deltoids and will occasionally get pain to her dorsal forearm and wrist. No balance issues. No dexterity issues but feels like her hands are weaker. Onset (date, injury, precipitating event):This has been going on since she was a teenager. She doesn't remember injuring it. She woke up one morning and she couldn't turn her head. Over the years this has been gradually getting worse, with it worsening over the last 3 weeks. Prior Hx (injury, surgery, prior issues with extremity):Denies any surgery, it makes it difficult through out the day because she watches her grandson and odes a lot of lifting. The pain is so bad it makes her feel sick. Aggravating facto (more content not included)... Normal [facility] Colonoscopy Reporton 024 Colonoscopy Report [facility] [address] [place] [address] Colonoscopy Report MR#: [id number] Acct: [id number] Name: ROSALIE RANDHAWA Rep #: [id number] : 1970 54 From: Adan Dyer DO PCP: Dr. Oleksandr Holbrook MD Status:[facility] Patient Name: Rosalie Gonzales Procedure Date: 05/25/2024 8:22 AM Date of : 1970 Age: 54 Procedure: Colonoscopy Indications: High risk colon cancer surveillance: Personal history of colonic polyps Providers: Adan Dyer DO Referring MD: Oleksandr Holbrook MD Medicines: Monitored Anesthesia Care Patient Profile: This is a 54 year old female. Refer to note in patient chart for documentation of history and physical. Last Colonoscopy: 3 years ago. Complications: No immediate complications. Procedure: Pre-Anesthesia Assessment: - Prior to the procedure, a History and Physical was performed, and patient medications and allergies were reviewed. The patient is competent. The risks and benefits of the procedure and the sedation options and risks were discussed with the patient. All questions were answered and informed consent was obtained. Patient identification and proposed procedure were verified by the physician in the pre-procedure area. Mental Status Examination: alert and oriented. Respiratory Examination: clear to auscultation. CV Examination: normal. Prophylactic Antibiotics: The patient does not require prophylactic antibiotics. Prior Anticoagulants: The patient has taken no anticoagulant or antiplatelet agents. ASA Grade Assessment: II - A patient with mild systemic disease. After reviewing the risks and benefits, the patient was deemed in satisfactory condition to undergo the procedure. The anesthesia plan was to use monitored anesthesia care (MAC). Immediately prior to administration of medications, the patient was re-assessed for adequacy to receive sedatives. The heart rate, respiratory rate, oxygen saturations, blood pressure, adequacy of pulmonary ventilation, and response to care were monitored throughout the procedure. The physical status of the patient was re-assessed after the procedure. After I obtained informed consent, the scope was passed under direct vision. Throughout the procedure, the patient's blood pressure, pulse, and oxygen saturations were monitored continuously. The Colonoscope was introduced through the anus and advanced to the cecum, identified by appendiceal orifice and ileocecal valve. The colonoscopy was performed without difficulty. The patient tolerated the procedure well. The quality of the bowel preparation was adequate. The ileocecal valve, appendiceal orifice, and rectum were photographed. Scope In: 8:39:37 AM Scope Withdrawal Time 0 hours 5 minutes 46 seconds Scope Out: 8:51:57 AM Total Procedure Duration Time 0 hours 12 minutes 20 seconds Findings: The perianal and digital rectal examinations were normal. An 8 mm polyp was found in the transverse colon. The polyp was sessile. The polyp was removed with a cold biopsy forceps. Resection and retrieval were complete. Verification of patient identification for the specimen was done. Estimated blood loss was minimal. The exam was otherwise without abnormality on direct and retroflexion views. Impression: - One 8 mm polyp in the transverse colon, removed with a cold biopsy forceps. Resected and retrieved. - The examination was otherwise normal on direct and retroflexion views. Recommendation: - Discharge patient to home. - Resume previous diet. - Continue present medications. - Await pathology results. - Repeat colonoscopy in 5 years for surveillance. Procedure Code(s): --- Professional --- 77010, Colonoscopy, flexible; with biopsy, single or multiple CPT copyright 2021 [employer]. All rights reserved. The codes documented in this report are preliminary and upon data coder operator review may be revised to meet current compliance requirements. Adan Dyer DO 05/25/2024 8:58:26 AM This report has been signed electronically. Number of Addenda: 0 Note Initiated On: 05/25/2024 8:22 AM 05/25/24857 Date Adan Bruner Signature: Date (if indicated) CC: Dr. Oleksandr Holbrook MD; Adan Dyer DO Date Dictated: 05/25/24821 Date Transcribed: Boiler Tube Reamer: ESTEFANIA Signed [facility] MR/POSTOP.[facility] 05-25-2024 MR/POSTOP.[facility] Medical Records Department [address] [place] [address] Anesthesia Postop Eval I 05/25/24857 MR#: [id number] Acct: [id number] Name: ROSALIE RANDHAWA Rep #: [id number] : 1970 54 From: Anival Beckman PCP: Dr. Oleksandr Holbrook MD Status:[facility] Y Race: C Location: [place] [address] Anesthesia: Postop Eval I Current Vital Signs Temperature: 97.6 F Pulse Rate: 81 Blood Pressure: 101/72 Respiratory Rate: 16 Pulse Ox: 95 Oxygen Delivery Method: Room Air Assessment Airway patent: Yes Spontaneous unlabored respirations: Yes Mental status: Asleep nausea: No Vomiting: No Anesthesia Complication: No Fluid Hydration Crystalloid volume administer (ml): 40 Total IV fluid infused: 40 Progress Note Anesthesia document: Postop Eval 1 completed: Yes 05/25/24858 Date Anival Rao Signature: Date CC: Signed Normal [facility] MR/[id number] 05-25-2024 MR/POSTOPAN2 [facility] Medical Records Department [address] [place] [address] Anesthesia Postop Eval II 05/25/24957 MR#: [id number] Acct: [id number] Name: ROSALIE RANDHAWA Rep #: [id number] : 1970 54 From: Nitin Church MD PCP: Dr. Oleksandr Holbrook MD Status:[facility] Y Race: C Location: [place] Anesthesia Postop Eval I Sum Postop Eval Completion status Anesthesia document: Postop Eval 1 completed: Yes Anesthesia Postop Eval I Summary Anesthesia Postop Eval I Summary: Anesthesia Postop Eval I: Assessment Summary Airway patent Yes 05/25/24 08:59 [email or web address] Spontaneous unlabored Yes 05/25/24 08:59 [email or web address] respirations Mental status Asleep 05/25/24 08:59 [email or web address] nausea No 05/25/24 08:59 [email or web address] Vomiting No 05/25/24 08:59 [email or web address] Anesthesia Postop Eval I: Fluid Summary Crystalloid volume administer 40 05/25/24 08:59 [email or web address] (ml) Colloids volume administered ( ml) Blood Product volume administered (ml) Total IV fluid infused 40 05/25/24 08:59 [email or web address] Anesthesia Postop Eval I: Summary Notes Anesthesia Complication No 05/25/24 08:59 [email or web address] Anesthesia Complication Comment: Post-operative progress note Anesthesia: Postop Eval II Evaluation Mental status: Awake Pain Level: 0 nausea: No Vomiting: No 05/25/24957 Date Nitin Rao Signature: Date CC: Signed Normal [facility] Surgery Specimen Level Nathan 05-25-2024 Surgery Specimen Level IV -------- Patient Age/Sex Location Account Attending Physician -------- ROSALIE RANDHAWA 54/F EN [id number] Adan Dyer DO -------- Specimen: [id number] Received: 05/25/24 Status: SUKHJINDER Oh Num: [id number] Spec Type: COLON BX Subm Dr: Adan Dyer, HEADER OPERATION: Colonoscopy with biopsy PRE-OP DIAGNOSIS: Colon cancer screening TISSUE SUBMITTED: Transverse colon polyp biopsy -------- MICROSCOPIC DIAGNOSIS Transverse colon polyp, biopsy: Fragments of tubular adenoma. . 05/26/2024 MICROSCOPIC DESCRIPTION Slides are reviewed. GROSS DESCRIPTION Received in fixative is one container labeled with the patient's name and designated Transverse colon polyp biopsy. The specimen consists of two irregular fragments of light garcia soft tissue that in aggregate measure 0.6 x 0.2 x 0.1 cm. The specimen is totally submitted in one cassette. . 05/25/2024 TC:1 CPT:08151 -------- Patient Age/Sex Location Account Attending Physician -------- ROSALIE RANDHAWA 54/F EN [id number] Adan Dyer DO -------- Signed (signature on file) Dr. Rosalio Solomon MD 05/26/24 1209 -------- Normal [facility] Comment on above: Performed By: #### P SUIV ####[facility] [id number] [place], [address] Absolute lymphocyte countOrd ered By: Marcello Morejon on 11-16-2023 Lymphocytes Auto (Unsp spec) [#/Vol] 2.78 10*3/uL 0.83-4.51 [facility] Activated partial thrombopla stin time (aPTT) in platelet poor plasma by coagulation aOrdered By: Marcello Morejon on 11-16-2023 aPTT Coag (PPP) [Time] 27.4 s 24.1-36.2 [facility] Automated lymphocyte count a s percentage of total leukocytesOrdered By: Marcello Morejon on 11-16-2023 Lymphocytes/100 WBC Auto (Unsp spec) 37.7 % 19-41 [facility] Basophil percentageOrdered B y: Marcello Morejon on 11-16-2023 Basophil percentage 0 SEEN /hpf 0-5 [facility] Lactate [Moles/Vol] 1.8 mmol/L 0.4-2.0 [facility] Basophils/100 WBC (Bld) 0.4 % 0-1 [facility] Bilirubin [Mass/Vol] 0.30 mg/dL 0.20-1.00 [facility] Comment on above: For patients on eltr ombopag therapy, use of Dimension [place] TBIL is not recommended. Chloride [Moles/Vol] 105 mmol/L 98-107 [facility] Eosinophils/100 WBC (Bld) 1.6 % 0-5 [facility] Glucose [Mass/Vol] 132 mg/dL 74-106 [facility] Comment on above: Fasting Glucose resu lt greater than or equal to 126 mg/dL suggests DIABETES MELLITUS per A.D.A. criteria. Hemoglobin (Bld) [Mass/Vol] 13.0 g/dL 12.0-15.0 [facility] Monocytes/100 WBC (Bld) 10.4 % 0-10 [facility] Neutrophils (Bld) [#/Vol] 3.6 10*3/uL 2.0-7.7 [facility] Neutrophils/100 WBC (Bld) 49.4 % 47-70 [facility] Potassium [Moles/Vol] 4.0 mmol/L 3.5-5.1 [facility] Comment on above: Slight Hemolysis, Re sult may be falsely increased. Protein [Mass/Vol] 7.4 g/dL 6.4-8.2 [facility] Sodium [Moles/Vol] 139 mmol/L 136-145 [facility] WBC (Bld) [#/Vol] 7.4 10*3/uL 4.4-11.0 [facility] Bilirubin Test strip Ql (U)O rdered By: Marcello Morejon on 11-16-2023 Bilirubin Ql (U) Negative Negative [facility] Determination of erythrocyte mean corpuscular volume (MCV)Ordered By: Marcello Morejon on 11-16-2023 MCV (RBC) [Entitic vol] 93.5 fL 81-99 [facility] Erythrocyte distribution wid th ratioOrdered By: Marcello Morejon on 11-16-2023 Erythrocyte distribution width (RBC) [Ratio] 13.0 % 11.6-14.6 [facility] Erythrocyte distribution wid th standard deviationOrdered By: Marcello Morejon on 11-16-2023 Erythrocyte distribution width (RBC) [Entitic vol] 44.2 fL 35.1-43.9 [facility] Hematocrit Auto (Bld) [Volum e fraction]Ordered By: Marcello Morejon on 11-16-2023 Hematocrit (Bld) [Volume fraction] 40.1 % 37-47 [facility] Immature granulocytes/100 WB C Auto (Bld)Ordered By: Marcello Morejon on 11-16-2023 Immature granulocytes/100 WBC (Bld) 0.500 % 0.0-0.9 [facility] Comment on above: IG% - Immature Granu locytes (promyelocytes, myelocytes and metamyelocytes) > 1% indicates that a LEFT SHIFT is Present. Ketones Test strip Ql (U)Ord ered By: Marcello Morejon on 11-16-2023 Ketones Ql (U) Negative Negative [facility] Laboratory - Chemistry and C hemistry - challengeOrdered By: Marcello Morejon on 11-16-2023 Albumin/Globulin [Mass ratio] 0.8 {ratio} 0.9-2.4 [facility] ALP [Catalytic activity/Vol] 84 U/L 45-117 [facility] ALT [Catalytic activity/Vol] 26 U/L 13-56 [facility] CO2 [Moles/Vol] 24.0 mmol/L 21.0-32.0 [facility] Globulin (S) [Mass/Vol] 4.0 g/dL 2.2-4.2 [facility] Lipase [Catalytic activity/Vol] 50 U/L 13-75 [facility] Comment on above: Please note:LIPASE r evised reference range effective 22. New Lipase methodology. Expected to produce lower values than the previous assay method. NEW Reference Range: 13 - 75 U/L Urea nitrogen/Creatinine [Mass ratio] 19.8 mg/mg 10-20 [facility] Laboratory - CoagulationOrde red By: Marcello Morejon on 11-16-2023 INR Coag (Bld) [Relative time] 1.1 {INR} [facility] PT Coag (PPP) [Time] 13.8 s 11.7-14.9 [facility] Laboratory - Hematology and Cell countsOrdered By: Marcello Morejon on 11-16-2023 MCH (RBC) [Entitic mass] 30.3 pg 27.0-32.0 [facility] MCHC (RBC) [Mass/Vol] 32.4 g/dL 32-36 [facility] Nucleated RBC/100 WBC (Bld) [Ratio] 0 % 0-5 [facility] Platelet mean volume (Bld) [Entitic vol] 9.7 fL 6.2-12.0 [facility] Platelets (Bld) [#/Vol] 387 10*3/uL 150-450 [facility] Mucus LM Ql (Urine sed)Order ed By: Marcello Morejon on 11-16-2023 Mucus Ql (Urine sed) 0 SEEN /hpf [facility] Nitrite Test strip Ql (U)Ord ered By: Marcello Morejon on 11-16-2023 Nitrite Ql (U) Negative Negative [facility] No Panel InformationOrdered By: Marcello Morejon on 11-16-2023 Urine RBC 0 SEEN /hpf 0-5 [facility] Estimated Creatinine Clearance Calc 81.86 ml/min [facility] Estimated GFR (MDRD) Amer 89 mL/min >60 [facility] Comment on above: GFR Calc Estimated GFR (MDRD) Non-Af Amer 73 mL/min >60 [facility] Comment on above: Non- GFR Calc Protein Test strip Ql (U)Ord ered By: Marcello Morejon on 11-16-2023 Protein Ql (U) Negative Negative [facility] RBC Auto (Bld) [#/Vol]Ordere d By: Marcello Morejon on 11-16-2023 RBC (Bld) [#/Vol] 4.29 10*6/uL 4.2-5.4 [facility] Serum or plasma calcium elizabeth urement (mass/volume)Ordered By: Marcello Morejon on 11-16-2023 Calcium [Mass/Vol] 9.1 mg/dL 8.5-10.1 [facility] Serum or plasma cardiac trop onin I panel by high sensitivity methodOrdered By: Marcello Morejon on 11-16-2023 Tropinin I.cardiac panel High sensitivity method < 3 pg/mL 3.0-54.0 [facility] Comment on above: Please Note: [place] t Units and Gender Specific Reference Ranges. For more information see Policy Stat Procedure [place] High Sensitivity Troponin (TNIH) and attachments. Serum or plasma creatinine m easurement (mass/volume)Ordered By: Marcello Morejon on 11-16-2023 Creatinine [Mass/Vol] 0.86 mg/dL 0.55-1.02 [facility] Comment on above: The validity of the calculated GFR & GFRAA in patients over 70 years has not been determined. Clinical correlation is essential. Serum or plasma urea nitroge n measurement (mass/volume)Ordered By: Marcello Morejon on 11-16-2023 Urea nitrogen [Mass/Vol] 17 mg/dL 7-18 [facility] Squamous epithelial cells de tection in urine sediment by light microscopyOrdered By: Marcello Morejon on 11-16-2023 Epithelial cells.squamous LM Ql (Urine sed) 0 SEEN /hpf 5-10 [facility] Thin prep Papanicolaou smear with manual screeningOrdered By: Marcello Morejon on 11-16-2023 Thin prep Papanicolaou smear with manual screening 3.4 g/dL 3.2-5.0 [facility] Thin prep Papanicolaou smear with manual screening 22 U/L 15-37 [facility] Comment on above: Slight Hemolysis, Re sult may be falsely increased. Thin prep Papanicolaou smear with manual screening 10 5-15 [facility] Urine blood detectionOrdered By: Marcello Morejon on 11-16-2023 RBC Ql (U) Negative Negative [facility] Urine clarityOrdered By: Jamee Morejon on 11-16-2023 Clarity (U) Clear Clear [facility] Urine color determinationOrd ered By: Marcello Morejon on 11-16-2023 Color (U) Yellow Yellow [facility] Urine glucose detectionOrder ed By: Marcello Morejon on 11-16-2023 Glucose Ql (U) Normal mg/dl Normal [facility] Urine leukocyte esterase det ection by dipstickOrdered By: Marcello Morejon on 11-16-2023 Leukocyte esterase Test strip Ql (U) Negative Negative [facility] Urine pHOrdered By: Marcello szymanski on 11-16-2023 pH (U) 6.5 [pH] 5.0 - 8.0 [facility] Urine sediment bacteria coun t by microscopy (number/high power field)Ordered By: Marcello Morejon on 11-16-2023 Bacteria LM.HPF (Urine sed) [#/Area] 0 /[HPF] None Seen [facility] Urine specific gravity measu rementOrdered By: Marcello Morejon on 11-16-2023 Specific gravity (U) [Rel density] 1.010 1.002-1.030 [facility] Urine urobilinogen measureme ntOrdered By: Marcello Morejon on 11-16-2023 Urobilinogen Ql (U) Normal mg/dl Normal [facility] Serum or plasma thyroid stim ulating hormone (TSH) measurement (units/volume)Ordered By: Oleksandr Holbrook on 08-21-2023 TSH Qn 3.34 uIU/mL 0.358-3.74 [facility] No Panel InformationOrdered By: Oleksandr Holbrook on 05-19-2023 Thyroid Stimulating Hormone (TSH) 18.00 uIU/mL 0.358-3.74 [facility] Vitamin D 25-Hydroxy 64.8 ng/mL [facility] Comment on above: Vitamin D 25(OH) Sta tus Range Deficiency <20 ng/mL (50nmol/L) Insufficiency 20 - 30 ng/mL (50 - 75 nmol/L) Sufficiency 30 - 100 ng/mL (75 - 250 nmol/L) Toxicity >100 ng/mL (>250 nmol/L) Laboratory - Chemistry and C hemistry - challengeOrdered By: Dr. Holbrook on 11-03-2022 Free T4 [Mass/Vol] 1.03 ng/dL 0.76-1.46 [facility] No Panel InformationOrdered By: Dr. Holbrook on 11-03-2022 Thyroid Stimulating Hormone (TSH) 1.13 uIU/mL 0.358-3.74 [facility] Absolute lymphocyte countOrd ered By: Dr. Holbrook on 09-01-2022 Lymphocytes Auto (Unsp spec) [#/Vol] 1.80 10*3/uL 0.83-4.51 [facility] Basophil percentageOrdered B y: Dr. Holbrook on 09-01-2022 Basophil percentage Not Reportable [facility] Basophils/100 WBC (Bld) 0.5 % 0-1 [facility] Bilirubin [Mass/Vol] 0.50 mg/dL 0.20-1.00 [facility] Comment on above: For patients on eltr ombopag therapy, use of Dimension [place] TBIL is not recommended. Chloride [Moles/Vol] 104 mmol/L 98-107 [facility] Eosinophils/100 WBC (Bld) 1.1 % 0-5 [facility] Glucose [Mass/Vol] 95 mg/dL 74-106 [facility] Neutrophils (Bld) [#/Vol] 3.8 10*3/uL 2.0-7.7 [facility] Neutrophils/100 WBC (Bld) 62.4 % 47-70 [facility] Potassium [Moles/Vol] 4.3 mmol/L 3.5-5.1 [facility] Protein [Mass/Vol] 7.9 g/dL 6.4-8.2 [facility] Sodium [Moles/Vol] 136 mmol/L 136-145 [facility] WBC (Bld) [#/Vol] 6.1 10*3/uL 4.4-11.0 [facility] Blood erythrocytes count (nu mber/volume)Ordered By: Dr. Holbrook on 09-01-2022 RBC (Bld) [#/Vol] 4.62 10*6/uL 4.2-5.4 [facility] Blood hemoglobin measurement (mass/volume)Ordered By: Dr. Holbrook on 09-01-2022 Hemoglobin (Bld) [Mass/Vol] 14.0 g/dL 12.0-15.0 [facility] Blood lymphocytes/100 leukoc ytesOrdered By: Dr. Holbrook on 09-01-2022 Lymphocytes/100 WBC (Bld) 29.6 % 19-41 [facility] Blood monocytes/100 leukocyt esOrdered By: Dr. Holbrook on 09-01-2022 Monocytes/100 WBC (Bld) 6.4 % 0-10 [facility] Blood platelet mean volumeOr dered By: Dr. Holbrook on 09-01-2022 Platelet mean volume (Bld) [Entitic vol] 9.8 fL 6.2-12.0 [facility] Determination of erythrocyte mean corpuscular volume (MCV)Ordered By: Dr. Holbrook on 09-01-2022 MCV (RBC) [Entitic vol] 93.1 fL 81-99 [facility] Erythrocyte sedimentation ra teOrdered By: Dr. Holbrook on 09-01-2022 ESR (Bld) [Velocity] 15 mm/h 0-30 [facility] Hematocrit Auto (Bld) [Volum e fraction]Ordered By: Dr. Holbrook on 09-01-2022 Hematocrit (Bld) [Volume fraction] 43.0 % 37-47 [facility] Laboratory - Chemistry and C hemistry - challengeOrdered By: Dr. Holbrook on 09-01-2022 ALP [Catalytic activity/Vol] 91 U/L 45-117 [facility] ALT [Catalytic activity/Vol] 28 U/L 13-56 [facility] CO2 [Moles/Vol] 26.0 mmol/L 21.0-32.0 [facility] Cobalamin (Vitamin B12) [Mass/Vol] 367 pg/mL 211-911 [facility] Globulin (S) [Mass/Vol] 4.1 g/dL 2.2-4.2 [facility] Urea nitrogen/Creatinine [Mass ratio] 20.2 mg/mg 10-20 [facility] Laboratory - Hematology and Cell countsOrdered By: Dr. Holbrook on 09-01-2022 Erythrocyte distribution width (RBC) [Entitic vol] 43.2 fL 35.1-43.9 [facility] Erythrocyte distribution width (RBC) [Ratio] 12.6 % 11.6-14.6 [facility] Immature granulocytes/100 WBC (Bld) 0.000 % 0.0-0.9 [facility] Comment on above: IG% - Immature Granu locytes (promyelocytes, myelocytes and metamyelocytes) > 1% indicates that a LEFT SHIFT is Present. MCH (RBC) [Entitic mass] 30.3 pg 27.0-32.0 [facility] Nucleated RBC/100 WBC (Bld) [Ratio] 0 % 0-5 [facility] MCHC Auto (RBC) [Mass/Vol]Or dered By: Dr. Holbrook on 09-01-2022 MCHC (RBC) [Mass/Vol] 32.6 g/dL 32-36 [facility] No Panel InformationOrdered By: Dr. Holbrook on 09-01-2022 Anti-Nuclear Antibody Screen Negative Negative [facility] Comment on above: Performed at: [address] [id number] Director: Raj Kinsey PhD, Phone: [phone] [employer] B Antibody Not Reportable [facility] Estimated GFR (MDRD) Amer 98 mL/min >60 [facility] Comment on above: GFR Calc Estimated GFR (MDRD) Non-Af Amer 81 mL/min >60 [facility] Comment on above: Non- GFR Calc INVENTORY CHECKER Antibody Not Reportable [facility] Vitamin D 25-Hydroxy 22.1 ng/mL [facility] Comment on above: Vitamin D 25(OH) Sta tus Range Deficiency <20 ng/mL (50nmol/L) Insufficiency 20 - 30 ng/mL (50 - 75 nmol/L) Sufficiency 30 - 100 ng/mL (75 - 250 nmol/L) Toxicity >100 ng/mL (>250 nmol/L) Platelets bldOrdered By: Dr. Holbrook on 09-01-2022 Platelets (Bld) [#/Vol] 380 10*3/uL 150-450 [facility] Serum DNA double strand anti body assay (units/volume)Ordered By: Dr. Holbrook on 09-01-2022 DNA double strand Ab Qn (S) Not Reportable [facility] Serum Stacy-1 antibody assay (u nits/volume)Ordered By: Dr. Holbrook on 09-01-2022 Stacy-1 extractable nuclear Ab Qn (S) Not Reportable [facility] Serum Scl-70 extractable nuc lear antibody assay (units/volume)Ordered By: Dr. Holbrook on 09-01-2022 SCL-70 extractable nuclear Ab Qn (S) Not Reportable [facility] Serum Muaro extractable nucl ear antibody detectionOrdered By: Dr. Holbrook on 09-01-2022 Mauro extractable nuclear Ab Ql (S) Not Reportable [facility] Serum cyclic citrullinated p eptide IgG antibody assay (units/volume)Ordered By: Dr. Holbrook on 09-01-2022 Cyclic citrullinated peptide IgG Qn 1 units 0-19 [facility] Comment on above: Negative <20 Weak po sitive 20 - 39 Moderate positive 40 - 59 Strong positive >59Performed at: [facility] [id number] Director: Raj Kinsey PhD, Phone: [phone] Serum or plasma C reactive p rotein measurement (mass/volume)Ordered By: Dr. Holbrook on 09-01-2022 CRP [Mass/Vol] 7.76 mg/L 0.0-3.0 [facility] Comment on above: C-Reactive Protein ( CRP) provides useful information for thediagnosis, therapy and monitoring of inflammatory processesand associated diseases. For the evaluation of Relative Riskfor Cardiovascular Disease, a High Sensitivity CRP (HSCRP)should be ordered. Serum or plasma albumin elizabeth urement (mass/volume)Ordered By: Dr. Holbrook on 09-01-2022 Albumin [Mass/Vol] 3.8 g/dL 3.2-5.0 [facility] Serum or plasma albumin/glob ulin mass ratioOrdered By: Dr. Holbrook on 09-01-2022 Albumin/Globulin [Mass ratio] 0.9 {ratio} 0.9-2.4 [facility] Serum or plasma calcium elizabeth urement (mass/volume)Ordered By: Dr. Holbrook on 09-01-2022 Calcium [Mass/Vol] 9.7 mg/dL 8.5-10.1 [facility] Serum or plasma creatinine m easurement (mass/volume)Ordered By: Dr. Holbrook on 09-01-2022 Creatinine [Mass/Vol] 0.79 mg/dL 0.55-1.02 [facility] Comment on above: The validity of the calculated GFR & GFRAA in patients over 70 years has not been determined. Clinical correlation is essential. Serum or plasma urea nitroge n measurement (mass/volume)Ordered By: Dr. Holbrook on 09-01-2022 Urea nitrogen [Mass/Vol] 16 mg/dL 7-18 [facility] Serum rheumatoid factor dete ctionOrdered By: Dr. Holbrook on 09-01-2022 Rheumatoid factor Ql (S) < 10.0 IU/mL <15 [facility] Thin prep Papanicolaou smear with manual screeningOrdered By: Dr. Holbrook on 09-01-2022 Thin prep Papanicolaou smear with manual screening 21 U/L 15-37 [facility] Thin prep Papanicolaou smear with manual screening 6 5-15 [facility] No Panel InformationOrdered By: Kermit Davis on 08-21-2022 Thyroid Stimulating Hormone (TSH) 0.28 uIU/mL 0.358-3.74 [facility] No Panel Informationon 04-24 Thyroid Stimulating Hormone (TSH) 0.54 uIU/mL 0.358-3.74 [facility] Work Phone: No Panel Informationon 02-20 Thyroid Stimulating Hormone (TSH) 0.15 uIU/mL 0.358-3.74 [facility] Work Phone: Absolute lymphocyte counton 12-17-2021 Lymphocytes Auto (Unsp spec) [#/Vol] 2.42 10*3/uL 0.83-4.51 [facility] Work Phone: Basophil percentageon 2021 Basophils/100 WBC (Bld) 0.3 % 0-1 [facility] Work Phone: Bilirubin [Mass/Vol] 0.20 mg/dL 0.20-1.00 [facility] Work Phone: Comment on above: For patients on eltr ombopag therapy, use of Dimension [place] TBIL is not recommended. Chloride [Moles/Vol] 104 mmol/L 98-107 [facility] Work Phone: Eosinophils/100 WBC (Bld) 1.2 % 0-5 [facility] Work Phone: Glucose [Mass/Vol] 82 mg/dL 74-106 [facility] Work Phone: Neutrophils (Bld) [#/Vol] 4.5 10*3/uL 2.0-7.7 [facility] Work Phone: Neutrophils/100 WBC (Bld) 58.8 % 47-70 [facility] Work Phone: Potassium [Moles/Vol] 4.4 mmol/L 3.5-5.1 [facility] Work Phone: Protein [Mass/Vol] 7.5 g/dL 6.4-8.2 [facility] Work Phone: Sodium [Moles/Vol] 139 mmol/L 136-145 [facility] Work Phone: WBC (Bld) [#/Vol] 7.6 10*3/uL 4.4-11.0 [facility]: Blood erythrocytes count (nu mber/volume)on 12-17-2021 RBC (Bld) [#/Vol] 4.34 10*6/uL 4.2-5.4 [facility] Work Phone: Blood hemoglobin measurement (mass/volume)on 12-17-2021 Hemoglobin (Bld) [Mass/Vol] 13.6 g/dL 12.0-15.0 [facility] Work Phone: Blood lymphocytes/100 leukoc yteson 12-17-2021 Lymphocytes/100 WBC (Bld) 32.0 % 19-41 [facility] Work Phone: Blood monocytes/100 leukocyt eson 12-17-2021 Monocytes/100 WBC (Bld) 7.4 % 0-10 [facility] Work Phone: Blood platelet mean volumeon 12-17-2021 Platelet mean volume (Bld) [Entitic vol] 9.7 fL 6.2-12.0 [facility] Work Phone: Determination of erythrocyte mean corpuscular volume (MCV)on 12-17-2021 MCV (RBC) [Entitic vol] 95.4 fL 81-99 [facility] Work Phone: Hematocrit Auto (Bld) [Volum e fraction]on 12-17-2021 Hematocrit (Bld) [Volume fraction] 41.4 % 37-47 [facility] Work Phone: Laboratory - Chemistry and C hemistry - challengeon 12-17-2021 ALP [Catalytic activity/Vol] 85 U/L 45-117 [facility] Work Phone: ALT [Catalytic activity/Vol] 23 U/L 13-56 [facility] Work Phone: CO2 [Moles/Vol] 30.0 mmol/L 21.0-32.0 [facility] Work Phone: Globulin (S) [Mass/Vol] 3.7 g/dL 2.2-4.2 [facility] Work Phone: Urea nitrogen/Creatinine [Mass ratio] 19.3 mg/mg 10-20 [facility] Work Phone: Laboratory - Hematology and Cell countson 12-17-2021 Erythrocyte distribution width (RBC) [Entitic vol] 44.0 fL 35.1-43.9 [facility] Work Phone: Erythrocyte distribution width (RBC) [Ratio] 12.6 % 11.6-14.6 [facility] Work Phone: Immature granulocytes/100 WBC (Bld) 0.300 % 0.0-0.9 [facility] Work Phone: Comment on above: IG% - Immature Granu locytes (promyelocytes, myelocytes and metamyelocytes) > 1% indicates that a LEFT SHIFT is Present. MCH (RBC) [Entitic mass] 31.3 pg 27.0-32.0 [facility] Work Phone: Nucleated RBC/100 WBC (Bld) [Ratio] 0 % 0-5 [facility] Work Phone: MCHC Auto (RBC) [Mass/Vol]on 12-17-2021 MCHC (RBC) [Mass/Vol] 32.9 g/dL 32-36 [facility] Work Phone: No Panel Informationon 12-17 Estimated GFR (MDRD) Amer 93 mL/min >60 [facility] Work Phone: Comment on above: GFR Calc Estimated GFR (MDRD) Non-Af Amer 77 mL/min >60 [facility] Work Phone: Comment on above: Non- GFR Calc Platelets bldon 12-17-2021 Platelets (Bld) [#/Vol] 360 10*3/uL 150-450 [facility] Work Phone: Serum or plasma albumin elizabeth urement (mass/volume)on 12-17-2021 Albumin [Mass/Vol] 3.8 g/dL 3.2-5.0 [facility] Work Phone: Serum or plasma albumin/glob ulin mass ratioon 12-17-2021 Albumin/Globulin [Mass ratio] 1.0 {ratio} 0.9-2.4 [facility] Work Phone: Serum or plasma calcium elizabeth urement (mass/volume)on 12-17-2021 Calcium [Mass/Vol] 9.6 mg/dL 8.5-10.1 [facility] Work Phone: Serum or plasma creatinine m easurement (mass/volume)on 12-17-2021 Creatinine [Mass/Vol] 0.83 mg/dL 0.55-1.02 [facility] Work Phone: Comment on above: The validity of the calculated GFR & GFRAA in patients over 70 years has not been determined. Clinical correlation is essential. Serum or plasma urea nitroge n measurement (mass/volume)on 12-17-2021 Urea nitrogen [Mass/Vol] 16 mg/dL 7-18 [facility] Work Phone: Thin prep Papanicolaou smear with manual screeningon 12-17-2021 Thin prep Papanicolaou smear with manual screening 17 U/L 15-37 [facility] Work Phone: Thin prep Papanicolaou smear with manual screening 5 5-15 [facility] Work Phone: No Panel Informationon 12-12 Thyroid Stimulating Hormone (TSH) 0.10 uIU/mL 0.358-3.74 [facility] Work Phone: Absolute lymphocyte counton 07-03-2021 Lymphocytes Auto (Unsp spec) [#/Vol] 1.60 10*3/uL 0.83-4.51 [facility] Work Phone: Basophil percentageon 2020 Bilirubin [Mass/Vol] 0.40 mg/dL 0.20-1.00 [facility] Work Phone: Comment on above: For patients on eltr ombopag therapy, use of Dim[place] TBIL is not recommended. Chloride [Moles/Vol] 105 mmol/L 98-107 [facility] Work Phone: Cholesterol [Mass/Vol] 191 mg/dL <200 [facility] Work Phone: Comment on above: <200 mg/dL Desirable 200-240 mg/dL Borderline >240 mg/dL High Risk Eosinophils/100 WBC (Bld) 0.7 % 0-5 [facility] Work Phone: Glucose [Mass/Vol] 113 mg/dL 74-106 [facility] Work Phone: Comment on above: Fasting Glucose resu lt from 100 to 125 mg/dL suggests IMPAIRED HOMEOSTASIS per A.D.A. criteria.Please note revised GLUCOSE reference range effective 2017. Neutrophils (Bld) [#/Vol] 3.5 10*3/uL 2.0-7.7 [facility] Work Phone: Potassium [Moles/Vol] 3.9 mmol/L 3.5-5.1 [facility] Work Phone: Protein [Mass/Vol] 7.5 g/dL 6.4-8.2 [facility] Work Phone: Sodium [Moles/Vol] 139 mmol/L 136-145 [facility] Work Phone: Triglyceride [Mass/Vol] 225 mg/dL [facility] Work Phone: Comment on above: The drugs N-Acetylcy steine and Metamizole may falsely depress this assay.Serum Triglycerides Reference Interval Normal <150 mg/dL Borderline high 150 - 199 mg/dL High 200 - 499 mg/dL Very High > or = 500 mg/dL WBC (Bld) [#/Vol] 5.6 10*3/uL 4.4-11.0 [facility] Work Phone: Blood erythrocytes count (nu mber/volume)on 07-03-2021 RBC (Bld) [#/Vol] 4.47 10*6/uL 4.2-5.4 [facility] Work Phone: Blood hemoglobin measurement (mass/volume)on 07-03-2021 Hemoglobin (Bld) [Mass/Vol] 13.5 g/dL 12.0-15.0 [facility] Work Phone: Blood lymphocytes/100 leukoc yteson 07-03-2021 Lymphocytes/100 WBC (Bld) 28.7 % 19-41 [facility] Work Phone: Blood monocytes/100 leukocyt eson 07-03-2021 Monocytes/100 WBC (Bld) 7.7 % 0-10 [facility] Work Phone: Blood platelet mean volumeon 07-03-2021 Platelet mean volume (Bld) [Entitic vol] 9.5 fL 6.2-12.0 [facility] Work Phone: Determination of erythrocyte mean corpuscular volume (MCV)on 07-03-2021 MCV (RBC) [Entitic vol] 92.6 fL 81-99 [facility] Work Phone: Hematocrit Auto (Bld) [Volum e fraction]on 07-03-2021 Hematocrit (Bld) [Volume fraction] 41.4 % 37-47 [facility] Work Phone: Laboratory - Chemistry and C hemistry - challengeon 07-03-2021 ALP [Catalytic activity/Vol] 90 U/L 45-117 [facility] Work Phone: ALT [Catalytic activity/Vol] 25 U/L 13-56 [facility] Work Phone: CO2 [Moles/Vol] 27.0 mmol/L 21.0-32.0 [facility] Work Phone: Globulin (S) [Mass/Vol] 3.8 g/dL 2.2-4.2 [facility] Work Phone: Urea nitrogen/Creatinine [Mass ratio] 16.8 mg/mg 10-20 [facility] Work Phone: Laboratory - Hematology and Cell countson 07-03-2021 Basophils/100 WBC (Unsp spec) 0.4 % 0-1 [facility] Work Phone: Erythrocyte distribution width (RBC) [Entitic vol] 41.6 fL 35.1-43.9 [facility] Work Phone: Erythrocyte distribution width (RBC) [Ratio] 12.3 % 11.6-14.6 [facility] Work Phone: Immature granulocytes/100 WBC (Bld) 0.400 % 0.0-0.9 [facility] Work Phone: Comment on above: IG% - Immature Granu locytes (promyelocytes, myelocytes and metamyelocytes) > 1% indicates that a LEFT SHIFT is Present. MCH (RBC) [Entitic mass] 30.2 pg 27.0-32.0 [facility] Work Phone: Neutrophils/100 WBC (Bld) 62.1 % 47-70 [facility] Work Phone: Nucleated RBC/100 WBC (Bld) [Ratio] 0 % 0-5 [facility] Work Phone: MCHC Auto (RBC) [Mass/Vol]on 07-03-2021 MCHC (RBC) [Mass/Vol] 32.6 g/dL 32-36 [facility] Work Phone: No Panel Informationon 07-03 Estimated GFR (MDRD) Amer 101 mL/min >60 [facility] Work Phone: Comment on above: GFR Calc Estimated GFR (MDRD) Non-Af Amer 84 mL/min >60 [facility] Work Phone: Comment on above: Non- GFR Calc Thyroid Stimulating Hormone (TSH) 0.15 uIU/mL 0.358-3.74 [facility] Work Phone: Platelets bldon 07-03-2021 Platelets (Bld) [#/Vol] 336 10*3/uL 150-450 [facility] Work Phone: Serum or plasma albumin elizabeth urement (mass/volume)on 07-03-2021 Albumin [Mass/Vol] 3.7 g/dL 3.2-5.0 [facility] Work Phone: Serum or plasma albumin/glob ulin mass ratioon 07-03-2021 Albumin/Globulin [Mass ratio] 1.0 {ratio} 0.9-2.4 [facility] Work Phone: Serum or plasma calcium elizabeth urement (mass/volume)on 07-03-2021 Calcium [Mass/Vol] 9.1 mg/dL 8.5-10.1 [facility] Work Phone: Serum or plasma cholesterol in HDL measurement (mass/volume)on 07-03-2021 Cholesterol in HDL [Mass/Vol] 56 mg/dL [facility] Work Phone: Comment on above: The drugs N-Acetylcy steine and Metamizole may falsely depress this assay. Reference Range HDL <40 mg/dL Low HDL Cholesterol HDL >or= 60 mg/dL High HDL Cholesterol Serum or plasma cholesterol in VLDL measurement (mass/volume)on 07-03-2021 Cholesterol in VLDL [Mass/Vol] 45 mg/dL 5-40 [facility] Work Phone: Serum or plasma creatinine m easurement (mass/volume)on 07-03-2021 Creatinine [Mass/Vol] 0.77 mg/dL 0.55-1.02 [facility] Work Phone: Comment on above: The validity of the calculated GFR & GFRAA in patients over 70 years has not been determined. Clinical correlation is essential. Serum or plasma low density lipoprotein (LDL) cholesterol measurement (mass/volume)on 07-03-2021 Cholesterol in LDL [Mass/Vol] 90 mg/dL 0-130 [facility] Work Phone: Serum or plasma urea nitroge n measurement (mass/volume)on 07-03-2021 Urea nitrogen [Mass/Vol] 13 mg/dL 7-18 [facility] Work Phone: Thin prep Papanicolaou smear with manual screeningon 07-03-2021 Thin prep Papanicolaou smear with manual screening 15 U/L 15-37 [facility] Work Phone: Thin prep Papanicolaou smear with manual screening 7 5-15 [facility] Work Phone: T3, FREE (TRIDOTHYRONINE) ([id number])Ordered By: Media Sales Executive on 04-30-2021 Free T3 [Mass/Vol] 3.7 pg/mL Normal 2.0-4.[address] [facility]; [facility] Work Phone: Comment on above: PATIENT NOT FASTINGP ERFORMED BY: [employer] LabGAM[facility]IL Bfctno9664 [address]írez RoadDublin [place] [id number] T4, FREE (THYROXINE) ([id number]) Ordered By: Media Sales Executive on 04-30-2021 Free T4 [Mass/Vol] 1.63 ng/dL Normal 0.82-1.[address] [facility]; [facility] Work Phone: Comment on above: PATIENT NOT FASTINGP ERFORMED BY: [employer] LabGAMEVILrp [address]ju[address] Nimb[employer] LLCin [place] [id number] TSH ([id number])Ordered By: [employer] m Field Marketing Representative on 04-30-2021 TSH Qn 0.197 {uIU/mL} Abnormal 0.450-4.500 [facility]; [facility] Work Phone: Comment on above: PATIENT NOT FASTINGP ERFORMED BY: [employer] LabGAMEVILrp Lfvfak[address] F[facility]coAt[facility] [id number] T3, FREE (TRIDOTHYRONINE) ([id number])Ordered By: Media Sales Executive on 03-18-2021 Free T3 [Mass/Vol] 1.8 pg/mL Abnormal 2.0-4.[address] [facility]; [facility] Work Phone: Comment on above: PATIENT NOT FASTINGP ERFORMED BY: [facility] Frwdxd6193 [address]írez RoadDublin [place] [id number] T4, FREE (THYROXINE) ([id number]) Ordered By: Media Sales Executive on 03-18-2021 Free T4 [Mass/Vol] 0.63 ng/dL Abnormal 0.82-1.[address] [facility]; [facility] Work Phone: Comment on above: PATIENT NOT FASTINGP ERFORMED BY: [facility] Nicpyd2304 [facility] [id number] TSH (THYROID STIMULATING HOR DAGOBERTO) ([id number])Ordered By: Media Sales Executive on 03-18-2021 TSH Qn 2.010 {uIU/mL} Normal 0.450-4.500 [facility] fr[facility]; [facility] Work Phone: Comment on above: PATIENT NOT FASTINGP ERFORMED BY: CB [facility] Lfcmqs6566 [facility] [id number] HPVon 10-16-2020 HPV Interp Normal See Interp HPVN [facility] ([place]) Comment on above: Order Comment: Order placed by AP_HPV_ORDER rule from [id number] Result Comment: High Risk HPV Typing: NEGATIVE HPV types 16, 18, 31, 33, 35, 39, 45, 51, 52, 56, 58, 59, 66 and 68 DNA were undetectable or below the pre-set threshold. The carina High-Risk HPV DNA Test is not intended for use as a screening device for Pap normal women under age 30 and is not intended to substitute for regular Pap screening. The carina High-Risk HPV DNA Test is designed to augment existing methods for the detection of cervical disease and should be used in conjunction with clinical information derived from other diagnostic and screening tests, physical examinations and full medical history in accordance with appropriate patient management procedures. NOTE: A negative result does not preclude the presence of HPV infection because results depend on adequate specimen collection, absence of inhibitors and sufficient DNA to be detected. See Interp HPVN Performed By: #### H PV #### [address] [address] HPV Source Cervix Normal [facility] ([place]) Comment on above: Order Comment: Order placed by AP_HPV_ORDER rule from [id number] Performed By: #### H PV #### [address] [address] Managing Broker Cytology Reporton 2020 Managing Broker Cytology Report . Pathology Reports Accession: Collected Date/Time: Received Date/Time: Pathologist: [id number] 10/08/2020 09:34 EDT 10/09/2020 18:00 EDT Managing Broker Cytology Report SPECIMEN: Specimen Description: Liquid Prep w/ HPV Specimen: Cervical/Endocervical Screening or Diagnostic: Screening RELEVANT HISTORY: LMP: menopausal [id number] SPECIMEN ADEQUACY: SATISFACTORY FOR EVALUATION ENDOCERVICAL/TRANSFOR MATIONAL ZONE COMPONENT PRESENT INTERPRETATION/RESULT S: NEGATIVE FOR INTRAEPITHELIAL LESION OR MALIGNANCY ADJUNCTIVE TESTING: HIGH RISK HPV DNA TESTING ORDERED, REPORT TO FOLLOW UNDER SEPARATE COVER COMMENT: This Pap Test was successfully processed and evaluated with the assistance of the [facility] Surgical[employer] Test Imaging System. Electronically Signed by Pathology report verified by [facility]. Screened by: KK Electronically signed by Sosa WREN (ASCP) Sign-Out Date: 10/15/2020 11:22 Performing Lab: [facility], [address] [place] [address] Disclaimer The Pap test is a screening test for cervical cancer. As evidenced by published data, it is subject to both inherent false negative and false positive results. Your patient's results should be interpreted in context with pertinent clinical history including gynecological examination. Normal [facility] ([place]) Comment on above: Performed By: #### G YCR #### [place] [address] MARIA TERESA (ANTINUCLEAR ANTIBODY) ( [id number])Ordered By: Media Sales Executive on 07-19-2020 Nuclear Ab Ql (S) Negative Normal Compreh ensive [facility]; [facility] Work Phone: Comment on above: PATIENT WAS FASTINGP ERFORMED BY: [email or web address] [facility] [id number] Nuclear Ab Ql (S) Negative Normal Compreh ensive [facility]; [facility] Work Phone: Comment on above: PATIENT WAS FASTINGP ERFORMED BY: popchips70 [facility] [id number] C-REACTIVE PROTEIN ([id number])Or dered By: Media Sales Executive on 07-19-2020 CRP [Mass/Vol] 5 mg/L Normal 0-10 Comprehens [facility]ome [facility]; [facility] Work Phone: Comment on above: PATIENT WAS FASTINGP ERFORMED BY: [employer] Mobile[address]rezReynolds Memorial Hospitalin [place] [id number] CALCIFIDIOL ([id number]) VIT D 25 Ordered By: Media Sales Executive on 07-19-2020 25-Hydroxyvitamin D2+25-Hydroxyvitamin D3 [Mass/Vol] 26.9 ng/mL Abnormal 30.0-100.0 [facility]; [facility] Work Phone: Comment on above: Vitamin D deficiency has been defined by the Julian ofMedicine and an Endocrine Society practice guideline as alevel of serum 25-OH vitamin D less than 20 ng/mL (1,2).The Endocrine Society went on to further define vitamin Dinsufficiency as a level between 21 and 29 ng/mL (2).1. IOM (Julian of Medicine). 2010. Dietary reference intakes for calcium and D. [place]: The National Academies Press.2. Kathryn MF, Jennifer VILLASEÑOR, Floyd AWAN, et al. Evaluation, treatment, and prevention of vitamin D deficiency: an Endocrine Society clinical practice guideline. JCEM. 2010; 96(7):1911-30. PATIENT WAS FASTINGP ERFORMED BY: [employer] Mobile6370 [facility]rezUniversity [facility] [id number] CBC (AUTO) ([id number])Ordered By : Media Sales Executive on 07-19-2020 Erythrocyte distribution width (RBC) [Ratio] 12.6 % Normal 11.7-15.4 [facility]; [facility] Work Phone: Comment on above: PATIENT WAS FASTINGP ERFORMED BY: [employer] Mobile6370 [facility]rezUniversity Health [facility] [id number] Hematocrit (Bld) [Volume fraction] 38.7 % Normal 34.0-46.6 [facility]; [facility] Work Phone: Comment on above: PATIENT WAS FASTINGP ERFORMED BY: [employer] Mobile6370 [facility] [id number] Hemoglobin (Bld) [Mass/Vol] 13.1 g/dL Normal 11.1-15.9 [facility]; [facility] Work Phone: Comment on above: PATIENT WAS FASTINGP ERFORMED BY: BAIRON [facility] Ldrcsz6562 Ramírez RoadDublin [place] [id number] MCH (RBC) [Entitic mass] 31.3 pg Normal 26.6-33.0 [facility]; [facility] Work Phone: Comment on above: PATIENT WAS FASTINGP ERFORMED BY: [facility] Kpeosj1260 [address] RoadDublin [place] [id number] MCHC (RBC) [Mass/Vol] 33.9 g/dL Normal 31.5-35.7 [facility]; [facility] Work Phone: Comment on above: PATIENT WAS FASTINGP ERFORMED BY: BAIRON [facility] Tdnstt7018 Ramírez RoadDublin [place] [id number] MCV (RBC) [Entitic vol] 93 fL Normal 79-97 [facility]; [facility] Work Phone: Comment on above: PATIENT WAS FASTINGP ERFORMED BY: [facility] Ckvmls0883 Ramí[address] RoadDublin [place] [id number] Platelets (Bld) [#/Vol] 355 {x10E3/uL} Normal 150-450 [facility]; [facility] Work Phone: Comment on above: PATIENT WAS FASTINGP ERFORMED BY: [facility] Ytoocc8295 [address]írez RoadDublin [place] [id number] Platelets (Bld) [#/Vol] 355 10*3/uL Normal 150-450 [facility]; [facility] Work Phone: Comment on above: PATIENT WAS FASTINGP ERFORMED BY: [facility] Wrrwai5478 [address] RoadDublin [place] [id number] RBC (Bld) [#/Vol] 4.18 {x10E6/uL} Normal 3.77-5.28 [facility]; [facility] Work Phone: Comment on above: PATIENT WAS FASTINGP ERFORMED BY: [facility] Tgcsnr4366 Ramírez RoadDublin [place] [id number] RBC (Bld) [#/Vol] 4.18 10*6/uL Normal 3.77-5.28 [facility]; [facility] Work Phone: Comment on above: PATIENT WAS FASTINGP ERFORMED BY: CB [facility] Fujgrd7373 Ramírez RoadDublin [place] [id number] WBC (Bld) [#/Vol] 6.1 {x10E3/uL} Normal 3.4-10.8 [facility]; [facility] Work Phone: Comment on above: PATIENT WAS FASTINGP ERFORMED BY: CB [facility] Mjpweg2843 Ramí[address] RoadDublin [place] [id number] WBC (Bld) [#/Vol] 6.1 10*3/uL Normal 3.4-10.[address] [facility]; [facility] Work Phone: Comment on above: PATIENT WAS FASTINGP ERFORMED BY: CB [facility] Wxoenv5366 Ramírez RoadDublin [place] [id number] FERRITIN ([id number])Ordered By: Media Sales Executive on 07-19-2020 Ferritin [Mass/Vol] 65 ng/mL Normal 15-150 [facility]; [facility] Work Phone: Comment on above: PATIENT WAS FASTINGP ERFORMED BY: CB [facility] Xlqqmr9651 [address] RoadDublin [place] [id number] IRON BINDING CAPACITY (TIBC) ([id number])Ordered By: Media Sales Executive on 07-19-2020 Iron [Mass/Vol] 76 ug/dL Normal 27-159 [facility] Medicine; [facility] Work Phone: Comment on above: PATIENT WAS FASTINGP ERFORMED BY: CB [facility] Mreqyh9552 [address] RoadDublin [place] [id number] Iron binding capacity [Mass/Vol] 337 ug/dL Normal 250-450 [facility]; [facility] Work Phone: Comment on above: PATIENT WAS FASTINGP ERFORMED BY: CB [facility] Zvwddq0998 [address] RoadDublin [place] [id number] Iron binding capacity.unsaturated [Mass/Vol] 261 ug/dL Normal 131-425 [facility]; [facility] Work Phone: Comment on above: PATIENT WAS FASTINGP ERFORMED BY: BAIRON [facility] Tvciko6770 [address] RoadDublin [place] [id number] Iron saturation [Mass fraction] 23 % Normal 15-55 [facility]; [facility] Work Phone: Comment on above: PATIENT WAS FASTINGP ERFORMED BY: CB [facility] Wiftne3164 [address] RoadDublin [place] [id number] LIPID PANEL ([id number])Ordered B y: Media Sales Executive on 07-19-2020 Cholesterol [Mass/Vol] 223 mg/dL Abnormal 100-199 [facility]; [facility] Work Phone: Comment on above: PATIENT WAS FASTINGP ERFORMED BY: BAIRON [facility] Glupem1266 [address] RoadDublin [place] [id number] Cholesterol in HDL [Mass/Vol] 65 mg/dL Normal [facility]; [facility] Work Phone: Comment on above: PATIENT WAS FASTINGP ERFORMED BY: BAIRON [facility] Lejbtg5857 [address] RoadDublin [place] [id number] Cholesterol in LDL/Cholesterol in HDL [Mass ratio] 2.1 {ratio} Normal 0.0-3.2 [facility]; [facility] Work Phone: Comment on above: LDL/HDL Ratio Men Wo men 1/2 Avg.Risk 1.0 1.5 Avg.Risk 3.6 3.2 2X Avg.Risk 6.2 5.0 3X Avg.Risk 8.0 6.1 PATIENT WAS FASTINGP ERFORMED BY: BAIRON [facility] Jkgbrv4012 [address] RoadDublin [place] [id number] Triglyceride [Mass/Vol] 110 mg/dL Normal 0-149 [facility]; [facility] Work Phone: Comment on above: PATIENT WAS FASTINGP ERFORMED BY: BAIRON [facility] Zqycoz7201 [address] RoadDublin [place] [id number] LIPID PANEL (86691) 19 mg/dL Normal 5-40 [facility]; [facility] Work Phone: Comment on above: PATIENT WAS FASTINGP ERFORMED BY: BAIRON [facility] Jvjnkj1044 [address] RoadDublin [place] [id number] LIPID PANEL (46706) 139 mg/dL Abnormal 0-99 [facility] Internal Medicine; [facility] Work Phone: Comment on above: PATIENT WAS FASTINGP ERFORMED BY: BAIRON [facility] Nsnszk1211 [address] RoadDublin [place] [id number] LIPID PANEL (09877) 2.1 {ratio} Normal 0.0-3.2 [facility] Internal Medicine; [facility] Work Phone: Comment on above: LDL/HDL Ratio Men Wo men 1/2 Avg.Risk 1.0 1.5 Avg.Risk 3.6 3.2 2X Avg.Risk 6.2 5.0 3X Avg.Risk 8.0 6.1 PATIENT WAS FASTINGP ERFORMED BY: BAIRON [facility] Ycngvg[address] [facility] [place] [id number] METABOLIC PANEL, COMPREHENSI VE (74703)Ordered By: Media Sales Executive on 07-19-2020 Albumin [Mass/Vol] 4.4 g/dL Normal 3.8-4.[address] [facility] Internal Medicine; [facility] Work Phone: Comment on above: PATIENT WAS FASTINGP ERFORMED BY: BAIRON [facility] Izzwut[address] [facility]in [place] [id number] Albumin/Globulin [Mass ratio] 1.7 {ratio} Normal 1.2-2.2 [facility]; [facility] Work Phone: Comment on above: PATIENT WAS FASTINGP ERFORMED BY: CB [facility] Nzbzga9003 [address] RoadDublin [place] [id number] ALP [Catalytic activity/Vol] 79 [iU]/L Normal 39-117 [facility]; [facility] Work Phone: Comment on above: PATIENT WAS FASTINGP ERFORMED BY: CB [facility] Kcjglo7782 [address] RoadDublin [place] [id number] ALP [Catalytic activity/Vol] 79 U/L Normal 39-117 [facility]; [facility] Work Phone: Comment on above: PATIENT WAS FASTINGP ERFORMED BY: BAIRON [facility] Mksbmq1674 [address] RoadDublin [place] [id number] ALT [Catalytic activity/Vol] 21 [iU]/L Normal 0-32 [facility]; [facility] Work Phone: Comment on above: PATIENT WAS FASTINGP ERFORMED BY: BAIRON LabRohini MijaresKhheao4701 [address] RoadDublin [place] [id number] ALT [Catalytic activity/Vol] 21 U/L Normal 0-32 [facility]; [facility] Work Phone: Comment on above: PATIENT WAS FASTINGP ERFORMED BY: BAIRON LabRohini MijaresCiivbo6775 [address] RoadDublin [place] [id number] AST [Catalytic activity/Vol] 21 [iU]/L Normal 0-40 [facility]; [facility] Work Phone: Comment on above: PATIENT WAS FASTINGP ERFORMED BY: BAIRON Mijareslin6370 [address] RoadDublin [place] [id number] AST [Catalytic activity/Vol] 21 U/L Normal 0-40 [facility]; [facility] Work Phone: Comment on above: PATIENT WAS FASTINGP ERFORMED BY: BAIRON Mijareslin6370 [address] RoadDublin [place] [id number] Bilirubin [Mass/Vol] 0.3 mg/dL Normal 0.0-1.2 Comp rehensive Internal Medicine; [facility] Work Phone: Comment on above: PATIENT WAS FASTINGP ERFORMED BY: BAIRON [facility] Coutrc0485 [address] RoadDublin [place] [id number] Calcium [Mass/Vol] 9.3 mg/dL Normal 8.7-10.2 [facility]; [facility] Work Phone: Comment on above: PATIENT WAS FASTINGP ERFORMED BY: BAIRON [facility] Foxajy9029 [address] RoadDublin [place] [id number] Chloride [Moles/Vol] 103 mmol/L Normal 96-106 Comp rehensive Internal Medicine; [facility] Work Phone: Comment on above: PATIENT WAS FASTINGP ERFORMED BY: CB [facility] Suypru0264 [address] RoadDublin [place] [id number] CO2 [Moles/Vol] 23 mmol/L Normal 20-29 [facility] Internal Medicine; [facility] Work Phone: Comment on above: PATIENT WAS FASTINGP ERFORMED BY: CB [facility] Hbhmlu2286 [address] RoadDublin [place] [id number] Creatinine [Mass/Vol] 0.76 mg/dL Normal 0.57-1.00 [facility]; [facility] Work Phone: Comment on above: PATIENT WAS FASTINGP ERFORMED BY: CB [facility] Vgfmor5943 [address] RoadDublin [place] [id number] GFR/1.73 sq M predicted among blacks CKD-EPI (S/P/Bld) [Vol rate/Area] 106 mL/min/1.73 Normal [facility]; [facility] Work Phone: Comment on above: PATIENT WAS FASTINGP ERFORMED BY: CB [facility] Wajpeg5528 [address] RoadDublin [place] [id number] GFR/1.73 sq M predicted among non-blacks CKD-EPI (S/P/Bld) [Vol rate/Area] 92 mL/min/1.73 Normal [facility]; [facility] Work Phone: Comment on above: PATIENT WAS FASTINGP ERFORMED BY: CB [facility] Hdbxwz6016 [address] RoadDublin [place] [id number] Globulin (S) [Mass/Vol] 2.6 g/dL Normal 1.5-4.5 [facility]; [facility] Work Phone: Comment on above: PATIENT WAS FASTINGP ERFORMED BY: CB [facility] Fnescj7568 [address] RoadDublin [place] [id number] Glucose [Mass/Vol] 99 mg/dL Normal 65-[address] [facility] Internal Medicine; [facility] Work Phone: Comment on above: PATIENT WAS FASTINGP ERFORMED BY: CB [facility] Vruuam7566 [address] RoadDublin [place] [id number] Potassium [Moles/Vol] 4.5 mmol/L Normal 3.5-5.2 [facility]; [facility] Work Phone: Comment on above: PATIENT WAS FASTINGP ERFORMED BY: BAIRON CashRohini MijaresYnsrby9275 [facility] [id number] Protein [Mass/Vol] 7.0 g/dL Normal 6.0-8.[address] [facility] Internal Medicine; [facility] Work Phone: Comment on above: PATIENT WAS FASTINGP ERFORMED BY: BAIRON Mijareslin6370 [facility] [id number] Sodium [Moles/Vol] 138 mmol/L Normal 134-[address] [facility] Internal Medicine; [facility] Work Phone: Comment on above: PATIENT WAS FASTINGP ERFORMED BY: BAIRON Perez6370 [facility] [id number] Urea nitrogen [Mass/Vol] 18 mg/dL Normal 6-24 [facility]; [facility] Work Phone: Comment on above: PATIENT WAS FASTINGP ERFORMED BY: BAIRON Mijareslin6370 [facility] [id number] Urea nitrogen/Creatinine [Mass ratio] 24 mg/mg Abnormal 9-23 [facility]; [facility] Work Phone: Comment on above: PATIENT WAS FASTINGP ERFORMED BY: BAIRON Mijareslin6370 [facility] [id number] RHEUMATOID FACTOR-QUANT (864 31)Ordered By: Media Sales Executive on 07-19-2020 Rheumatoid factor Qn [IU]/mL Normal 0.0-13.9 [facility] rehensive Internal Medicine; [facility] Work Phone: Comment on above: PATIENT WAS FASTINGP ERFORMED BY: BAIRON CashRohini MijaresDtzhwj1125 [facility] [id number] Rheumatoid factor Qn [IU]/mL Normal 0.0-13.9 [facility]erens[facility]; [facility] Work Phone: Comment on above: PATIENT WAS FASTINGP ERFORMED BY: CB [facility] Isntdg6014 [address] RoadDublin [place] [id number] SED RATE ERYTHROCYTE ([id number]) Ordered By: Media Sales Executive on 07-19-2020 ESR (Bld) [Velocity] 23 mm/h Normal 0-40 Comp rehensive Internal Medicine; [facility] Work Phone: Comment on above: PATIENT WAS FASTINGP ERFORMED BY: CB [facility] Lauigx9536 [address] RoadDublin [place] [id number] TSH ([id number])Ordered By: Syste m Field Marketing Representative on 07-19-2020 TSH Qn 9.490 {uIU/mL} Abnormal 0.450-4.500 Comprehen [facility]; [facility] Work Phone: Comment on above: PATIENT WAS FASTINGP ERFORMED BY: CB [facility] Dnskzm1936 [address] RoadDublin [place] [id number] VITAMIN B-12 (CYANOCOBALAMIN ) (67056)Ordered By: Media Sales Executive on 07-19-2020 Cobalamin (Vitamin B12) [Mass/Vol] 444 pg/mL Normal 232-1245 [facility]; [facility] Work Phone: Comment on above: PATIENT WAS FASTINGP ERFORMED BY: CB [facility] Hamxbd8532 [address] RoadDublin [place] [id number] MARIA TERESA (ANTINUCLEAR ANTIBODY) ( 28303)Ordered By: Media Sales Executive on 12-09-2019 Nuclear Ab Ql (S) Negative Normal Compreh ensive Internal Medicine Work Phone: Comment on above: PATIENT WAS FASTINGP ERFORMED BY: CB [facility] Irkbco4766 [address] RoadDublin [place] [id number] Nuclear Ab Ql (S) Negative Normal Compreh ensive Internal Medicine; [facility] Work Phone: Comment on above: PATIENT WAS FASTINGP ERFORMED BY: CB [facility] Amraaz0234 [address] RoadDublin [place] [id number] C-REACTIVE PROTEIN (28024)Or dered By: Media Sales Executive on 12-09-2019 CRP [Mass/Vol] 2 mg/L Normal 0-10 [facility] Internal Medicine Work Phone: Comment on above: PATIENT WAS FASTINGP ERFORMED BY: [employer] Mobile6370 PlayLabblin [place] [id number] CALCIFIDIOL (61429) VIT D 25 Ordered By: Media Sales Executive on 12-09-2019 25-Hydroxyvitamin D2+25-Hydroxyvitamin D3 [Mass/Vol] 34.3 ng/mL Normal 30.0-100.0 [facility] Work Phone: Comment on above: Vitamin D deficiency has been defined by the Julian ofMedicine and an Endocrine Society practice guideline as alevel of serum 25-OH vitamin D less than 20 ng/mL (1,2).The Endocrine Society went on to further define vitamin Dinsufficiency as a level between 21 and 29 ng/mL (2).1. IOM (Julian of Medicine). 2010. Dietary reference intakes for calcium and D. [place]: The National Academies Press.2. Kathryn MF, Jennifer VILLASEÑOR, Floyd AWAN, et al. Evaluation, treatment, and prevention of vitamin D deficiency: an Endocrine Society clinical practice guideline. JCEM. 2010; 96(7):1911-30. PATIENT WAS FASTINGP ERFORMED BY: [employer] Mobile6370 PlayLabblin [place] [id number] CBC (AUTO) ([id number])Ordered By : Media Sales Executive on 12-09-2019 Erythrocyte distribution width (RBC) [Ratio] 12.4 % Normal 11.7-15.4 [facility] Work Phone: Comment on above: PATIENT WAS FASTINGP ERFORMED BY: [employer] Mobile6370 PlayLabblin [place] [id number] Hematocrit (Bld) [Volume fraction] 40.8 % Normal 34.0-46.6 [facility] Work Phone: Comment on above: PATIENT WAS FASTINGP ERFORMED BY: [employer] Mobile6370 PlayLabblin [place] [id number] Hemoglobin (Bld) [Mass/Vol] 13.5 g/dL Normal 11.1-15.9 [facility] Work Phone: Comment on above: PATIENT WAS FASTINGP ERFORMED BY: CB [facility] Ioqwrj1505 [address] RoadDublin [place] [id number] MCH (RBC) [Entitic mass] 30.9 pg Normal 26.6-33.0 [facility] Work Phone: Comment on above: PATIENT WAS FASTINGP ERFORMED BY: CB [facility] Tmolji3506 [address] RoadDublin [place] [id number] MCHC (RBC) [Mass/Vol] 33.1 g/dL Normal 31.5-35.7 [facility] Internal Medicine Work Phone: Comment on above: PATIENT WAS FASTINGP ERFORMED BY: CB [facility] Drkhpn6613 [address] RoadDublin [place] [id number] MCV (RBC) [Entitic vol] 93 fL Normal 79-97 [facility] Work Phone: Comment on above: PATIENT WAS FASTINGP ERFORMED BY: CB [facility] Raktir1668 [address] RoadDublin [place] [id number] Platelets (Bld) [#/Vol] 345 {x10E3/uL} Normal 150-450 [facility] Work Phone: Comment on above: PATIENT WAS FASTINGP ERFORMED BY: CB [facility] Rsmjrk6565 [address] RoadDublin [place] [id number] Platelets (Bld) [#/Vol] 345 10*3/uL Normal 150-450 [facility]; [facility] Work Phone: Comment on above: PATIENT WAS FASTINGP ERFORMED BY: CB [facility] Fgtnis5804 [address] RoadDublin [place] [id number] RBC (Bld) [#/Vol] 4.37 {x10E6/uL} Normal 3.77-5.28 [facility] Internal Medicine Work Phone: Comment on above: PATIENT WAS FASTINGP ERFORMED BY: CB [facility] Vvipdv1069 [address] RoadDublin [place] [id number] RBC (Bld) [#/Vol] 4.37 10*6/uL Normal 3.77-5.28 Compr ehensive Internal Medicine; [facility] Work Phone: Comment on above: PATIENT WAS FASTINGP ERFORMED BY: BAIRON [facility] Ajpxaq5057 [address] RoadDublin [place] [id number] WBC (Bld) [#/Vol] 5.2 {x10E3/uL} Normal 3.4-10.8 [facility] Internal Medicine Work Phone: Comment on above: PATIENT WAS FASTINGP ERFORMED BY: CB [facility] Mwuypg7832 [address] RoadDublin [place] [id number] WBC (Bld) [#/Vol] 5.2 10*3/uL Normal 3.4-10.[address] [facility] Internal Medicine; [facility] Work Phone: Comment on above: PATIENT WAS FASTINGP ERFORMED BY: BAIRON [facility] Kbhekf[address] [facility] [id number] Folate (70002)Ordered By: stem Field Marketing Representative on 12-09-2019 Folate [Mass/Vol] 12.9 ng/mL Normal [facility] Internal Medicine Work Phone: Comment on above: A serum folate dmitry ntration of less than 3.1 ng/mL isconsidered to represent clinical deficiency. PATIENT WAS FASTINGP ERFORMED BY: BAIRON [facility] Eprhrn3511 [facility] Centerin [place] [id number] LIPID PANEL ([id number])Ordered B y: Media Sales Executive on 12-09-2019 Cholesterol [Mass/Vol] 205 mg/dL Abnormal 100-199 [facility] Internal Medicine Work Phone: Comment on above: PATIENT WAS FASTINGP ERFORMED BY: BAIRON [facility] Nirrqp[address] [facility] Centerblin [place] [id number] Cholesterol in HDL [Mass/Vol] 57 mg/dL Normal [facility] Work Phone: Comment on above: PATIENT WAS FASTINGP ERFORMED BY: BAIRON [facility] Qdtpgs6384 [address] RoadDublin [place] [id number] Cholesterol in LDL [Mass/Vol] 120 mg/dL Abnormal 0-99 [facility] Work Phone: Comment on above: PATIENT WAS FASTINGP ERFORMED BY: BAIRON LabRohini MijaresWivpkg4288 [address] RoadDublin [place] [id number] Cholesterol in LDL/Cholesterol in HDL [Mass ratio] 2.1 {ratio} Normal 0.0-3.2 [facility] Work Phone: Comment on above: LDL/HDL Ratio Men Wo men 1/2 Avg.Risk 1.0 1.5 Avg.Risk 3.6 3.2 2X Avg.Risk 6.2 5.0 3X Avg.Risk 8.0 6.1 PATIENT WAS FASTINGP ERFORMED BY: BAIRON LabRohini MijaresWesojp5446 [address] RoadDublin [place] [id number] Cholesterol in VLDL [Mass/Vol] 28 mg/dL Normal 5-40 [facility] Work Phone: Comment on above: PATIENT WAS FASTINGP ERFORMED BY: BAIRON LabRohini MijaresGzqboj5010 [address] RoadDublin [place] [id number] Triglyceride [Mass/Vol] 142 mg/dL Normal 0-149 [facility] Work Phone: Comment on above: PATIENT WAS FASTINGP ERFORMED BY: BAIRON LabRohini MijaresMtjuqx8463 [address] RoadDublin [place] [id number] METABOLIC PANEL, COMPREHENSI VE (05657)Ordered By: Media Sales Executive on 12-09-2019 Albumin [Mass/Vol] 4.1 g/dL Normal 3.8-4.[address] [facility] Internal Medicine Work Phone: Comment on above: PATIENT WAS FASTINGP ERFORMED BY: BAIRON LabRohini MijaresKmdgjo9291 [address] RoadDublin [place] [id number] Albumin/Globulin [Mass ratio] 1.3 {ratio} Normal 1.2-2.2 [facility] Work Phone: Comment on above: PATIENT WAS FASTINGP ERFORMED BY: BAIRON LabConorman Jkgwmz1885 [address] RoadDublin [place] [id number] ALP [Catalytic activity/Vol] 72 [iU]/L Normal 39-117 [facility] Work Phone: Comment on above: PATIENT WAS FASTINGP ERFORMED BY: BAIRON LabCon[facility] Vvatwq0798 [address] RoadDublin [place] [id number] ALP [Catalytic activity/Vol] 72 U/L Normal 39-117 [facility]; [facility] Work Phone: Comment on above: PATIENT WAS FASTINGP ERFORMED BY: [facility] Hhgkud4730 [address] RoadDublin [place] [id number] ALT [Catalytic activity/Vol] 15 [iU]/L Normal 0-32 [facility] Work Phone: Comment on above: PATIENT WAS FASTINGP ERFORMED BY: [facility] Ijbxzj0787 [address] RoadDublin [place] [id number] ALT [Catalytic activity/Vol] 15 U/L Normal 0-32 [facility]; [facility] Work Phone: Comment on above: PATIENT WAS FASTINGP ERFORMED BY: [facility] Hfyclb2151 [address] RoadDublin [place] [id number] AST [Catalytic activity/Vol] 21 [iU]/L Normal 0-40 [facility] Work Phone: Comment on above: PATIENT WAS FASTINGP ERFORMED BY: [facility] Ownjcr0797 [address] RoadDublin [place] [id number] AST [Catalytic activity/Vol] 21 U/L Normal 0-40 [facility]; [facility] Work Phone: Comment on above: PATIENT WAS FASTINGP ERFORMED BY: [facility] Yhbtmi7874 [address] RoadDublin [place] [id number] Bilirubin [Mass/Vol] 0.5 mg/dL Normal 0.0-1.2 [facility] Internal Medicine Work Phone: Comment on above: PATIENT WAS FASTINGP ERFORMED BY: [facility] Cectti9448 [address] RoadDublin [place] [id number] Calcium [Mass/Vol] 9.4 mg/dL Normal 8.7-10.[address] [facility] Internal Medicine Work Phone: Comment on above: PATIENT WAS FASTINGP ERFORMED BY: [facility] Tdlkbz2056 [address] RoadDublin [place] [id number] Chloride [Moles/Vol] 100 mmol/L Normal 96-106 [facility] Work Phone: Comment on above: PATIENT WAS FASTINGP ERFORMED BY: CB [facility] Xurnyn9180 [address] RoadDublin [place] [id number] CO2 [Moles/Vol] 23 mmol/L Normal 20-29 [facility] Internal Medicine Work Phone: Comment on above: PATIENT WAS FASTINGP ERFORMED BY: CB [facility] Gftnhi5872 [address] RoadDublin [place] [id number] Creatinine [Mass/Vol] 0.71 mg/dL Normal 0.57-1.00 [facility] Internal Medicine Work Phone: Comment on above: PATIENT WAS FASTINGP ERFORMED BY: CB [facility] Vffpzo6165 [address] RoadDublin [place] [id number] GFR/1.73 sq M predicted among blacks CKD-EPI (S/P/Bld) [Vol rate/Area] 116 mL/min/1.73 Normal [facility] Work Phone: Comment on above: PATIENT WAS FASTINGP ERFORMED BY: CB [facility] Dmjeqr0079 [address] RoadDublin [place] [id number] GFR/1.73 sq M predicted among non-blacks CKD-EPI (S/P/Bld) [Vol rate/Area] 100 mL/min/1.73 Normal [facility] Work Phone: Comment on above: PATIENT WAS FASTINGP ERFORMED BY: CB [facility] Gihkgn7911 [address] RoadHighlands-Cashiers Hospitalin [place] [id number] Globulin (S) [Mass/Vol] 3.2 g/dL Normal 1.5-4.5 [facility] Work Phone: Comment on above: PATIENT WAS FASTINGP ERFORMED BY: CB [facility] Cpyoxk5966 [address] RoadDublin [place] [id number] Glucose [Mass/Vol] 95 mg/dL Normal 65-[address] [facility] Internal Medicine Work Phone: Comment on above: PATIENT WAS FASTINGP ERFORMED BY: CB [facility] Zghrlf0774 [address] RoadDublin [place] [id number] Potassium [Moles/Vol] 4.8 mmol/L Normal 3.5-5.2 [facility] Work Phone: Comment on above: PATIENT WAS FASTINGP ERFORMED BY: BAIRON CashRohini MijaresCmuwka5038 [address] RoadDublin [place] [id number] Protein [Mass/Vol] 7.3 g/dL Normal 6.0-8.[address] [facility] Internal Medicine Work Phone: Comment on above: PATIENT WAS FASTINGP ERFORMED BY: BAIRON LabRohini MijaresWkzwjn8311 [address] RoadDublin [place] [id number] Sodium [Moles/Vol] 136 mmol/L Normal 134-[address] [facility] Internal Medicine Work Phone: Comment on above: PATIENT WAS FASTINGP ERFORMED BY: BAIRON Mijareslin6370 [address] RoadDublin [place] [id number] Urea nitrogen [Mass/Vol] 10 mg/dL Normal 6-24 [facility] Work Phone: Comment on above: PATIENT WAS FASTINGP ERFORMED BY: BAIRON Mijareslin6370 [address] RoadDublin [place] [id number] Urea nitrogen/Creatinine [Mass ratio] 14 mg/mg Normal 9-23 [facility] Work Phone: Comment on above: PATIENT WAS FASTINGP ERFORMED BY: BAIRON Mijareslin6370 [address] RoadDublin [place] [id number] RHEUMATOID FACTOR-QUANT (864 31)Ordered By: Media Sales Executive on 12-09-2019 Rheumatoid factor Qn [IU]/mL Normal 0.0-13.9 [facility] rehensive Internal Medicine Work Phone: Comment on above: PATIENT WAS FASTINGP ERFORMED BY: BAIRON LabRohini MijaresWdyliq0007 [address] RoadDublin [place] [id number] Rheumatoid factor Qn [IU]/mL Normal 0.0-13.9 [facility] rehensive Internal Medicine; [facility] Work Phone: Comment on above: PATIENT WAS FASTINGP ERFORMED BY: BAIRON LabTed Dlteew5561 [address] RoadDublin [place] [id number] SED RATE ERYTHROCYTE (22131) Ordered By: Media Sales Executive on 12-09-2019 ESR (Bld) [Velocity] 6 mm/h Normal 0-32 [facility] Internal Medicine Work Phone: Comment on above: PATIENT WAS FASTINGP ERFORMED BY: BAIRON [facility] Scgmxy6943 [address] RoadDublin [place] [id number] TSH (20478)Ordered By: Darius m Field Marketing Representative on 12-09-2019 TSH Qn 0.242 {uIU/mL} Abnormal 0.450-4.500 [facility] Internal Medicine Work Phone: Comment on above: PATIENT WAS FASTINGP ERFORMED BY: [facility] Dfksdq3576 [address] RoadDublin [place] [id number] VITAMIN B-12 (CYANOCOBALAMIN ) (18174)Ordered By: Media Sales Executive on 12-09-2019 Cobalamin (Vitamin B12) [Mass/Vol] 534 pg/mL Normal 232-1245 [facility] Internal Medicine Work Phone: Comment on above: PATIENT WAS FASTINGP ERFORMED BY: [facility] Mfbqbt5152 [address] RoadDublin [place] [id number] T3, FREE (TRIDOTHYRONINE) ([id number])Ordered By: Media Sales Executive on 06-23-2019 Free T3 [Mass/Vol] 3.1 pg/mL Normal 2.0-4.[address] [facility] Internal Medicine Work Phone: Comment on above: PATIENT NOT FASTINGP ERFORMED BY: [facility] Vcrqph2651 [address] RoadDublin [place] [id number] T4, FREE (THYROXINE) (31650) Ordered By: Media Sales Executive on 06-23-2019 Free T4 [Mass/Vol] 1.37 ng/dL Normal 0.82-1.[address] [facility] Internal Medicine Work Phone: Comment on above: PATIENT NOT FASTINGP ERFORMED BY: BAIRON [facility] Xxmoxi5557 Ramírez RoadDublin [place] [id number] TSH ([id number])Ordered By: Darius m Field Marketing Representative on 06-23-2019 TSH Qn 0.460 {uIU/mL} Normal 0.450-4.500 Comprehen sive Internal Medicine Work Phone: Comment on above: PATIENT NOT FASTINGP ERFORMED BY: BAIRON [employer] Nsznkf5623 [address] Nimbus LLCblin [place] [id number] CALCIFEDIOL (26214)Ordered B y: Media Sales Executive on 05-13-2019 25-Hydroxyvitamin D2+25-Hydroxyvitamin D3 [Mass/Vol] 29.8 ng/mL Abnormal 30.0-100.0 [facility] Work Phone: Comment on above: Vitamin D deficiency has been defined by the Julian ofWvumedicine [facility] Hospitalcine and an Endocrine Society practice guideline as alevel of serum 25-OH vitamin D less than 20 ng/mL (1,2).The Endocrine Society went on to further define vitamin Dinsufficiency as a level between 21 and 29 ng/mL (2).1. IOM (Julian of Medicine). 2010. Dietary reference intakes for calcium and D. [place]: The National Academies Press.2. Kathryn MF, Jennifer VILLASEÑOR, Floyd AWAN, et al. Evaluation, treatment, and prevention of vitamin D deficiency: an Endocrine Society clinical practice guideline. JCEM. 2010; 96(7):1911-30. PATIENT NOT FASTINGP ERFORMED BY: BAIRON [employer] Xkatcu8275 PlayLabblin [place] [id number] MARIA TERESA (ANTINUCLEAR ANTIBODY) ( [id number])Ordered By: Media Sales Executive on 02-21-2016 Nuclear Ab Ql (S) Negative Normal Compreh ensive Internal Medicine Work Phone: Comment on above: PATIENT WAS FASTINGP ERFORMED BY: BAIRON [employer] Fvgila0435 [address] Nimbus LLCblin [place] [id number] Nuclear Ab Ql (S) Negative Normal Compreh ensive Internal Medicine; [facility] Work Phone: Comment on above: PATIENT WAS FASTINGP ERFORMED BY: BAIRON [employer] Fblfpt4284 [address] [facility] [place] [id number] C-REACTIVE PROTEIN (53847)Or dered By: Media Sales Executive on 02-21-2016 CRP [Mass/Vol] 3.1 mg/L Normal 0.0-4.9 Comprehens bartolome Internal Medicine Work Phone: Comment on above: PATIENT WAS FASTINGP ERFORMED BY: BAIRON [facility]6370 [facility] [id number] CBC (AUTO) ([id number])Ordered By : Media Sales Executive on 02-21-2016 Erythrocyte distribution width (RBC) [Ratio] 13.0 % Normal 12.3-15.4 [facility] Internal Medicine Work Phone: Comment on above: PATIENT WAS FASTINGP ERFORMED BY: [address] [id number] Information: [id number] Hematocrit (Bld) [Volume fraction] 38.3 % Normal 34.0-46.6 [facility] Internal Medicine Work Phone: Comment on above: PATIENT WAS FASTINGP ERFORMED BY: [address] [id number] Information: [id number] Hemoglobin (Bld) [Mass/Vol] 12.9 g/dL Normal 11.1-15.9 [facility] Internal Medicine Work Phone: Comment on above: PATIENT WAS FASTINGP ERFORMED BY: [place] 0713870 [facility] [id number] Information: 327375,[id number] MCH (RBC) [Entitic mass] 31.2 pg Normal 26.6-33.0 [facility] Internal Medicine Work Phone: Comment on above: PATIENT WAS FASTINGP ERFORMED BY: [facility]6370 [facility] [id number] Information: [id number],[id number] MCHC (RBC) [Mass/Vol] 33.7 g/dL Normal 31.5-35.7 [facility] Internal Medicine Work Phone: Comment on above: PATIENT WAS FASTINGP ERFORMED BY: [facility]6370 [facility] [id number] Information: [id number],[id number] MCV (RBC) [Entitic vol] 93 fL Normal 79-97 [facility] Work Phone: Comment on above: PATIENT WAS FASTINGP ERFORMED BY: BAIRON LabConorman PerezBpuawq1044 [address] Chest[place] Centerblin [place] [id number] Information: [id number] Platelets (Bld) [#/Vol] 315 {x10E3/uL} Normal 150-379 [facility] Work Phone: Comment on above: PATIENT WAS FASTINGP ERFORMED BY: BAIRON LabConorman MijaresKvnkxk8297 [address] [facility] [place] [id number] Information: [id number] Platelets (Bld) [#/Vol] 315 10*3/uL Normal 150-379 [facility]; [facility] Work Phone: Comment on above: PATIENT WAS FASTINGP ERFORMED BY: BAIRON LabConorman Wmyvnq2743 [address] [facility] [id number] Information: [id number] RBC (Bld) [#/Vol] 4.14 {x10E6/uL} Normal 3.77-5.28 [facility] Internal Medicine Work Phone: Comment on above: PATIENT WAS FASTINGP ERFORMED BY: BAIRON Londonnorman Aodbtp0767 RamírezReynolds Memorial Hospitalin [place] [id number] Information: [id number],[id number] RBC (Bld) [#/Vol] 4.14 10*6/uL Normal 3.77-5.28 [facility] Internal Medicine; [facility] Work Phone: Comment on above: PATIENT WAS FASTINGP ERFORMED BY: BAIRON [facility] Ncxgzf5193 [address] [facility] [place] [id number] Information: [id number] WBC (Bld) [#/Vol] 5.1 {x10E3/uL} Normal 3.4-10.8 [facility] Internal Medicine Work Phone: Comment on above: PATIENT WAS FASTINGP ERFORMED BY: BAIRON [facility] Cdkrtj4345 [address] [facility] [place] [id number] Information: 306376,[id number] WBC (Bld) [#/Vol] 5.1 10*3/uL Normal 3.4-10.8 [facility]; [facility] Work Phone: Comment on above: PATIENT WAS FASTINGP ERFORMED BY: BAIRON [employer] Mgonko1417 [address] Gelato FiascoHighlands-Cashiers Hospitalin [place] [id number] Information: [id number] Folate (17465)Ordered By: Fitbit stem Field Marketing Representative on 02-21-2016 Folate [Mass/Vol] 8.7 ng/mL Normal Compreh ensive Internal Medicine Work Phone: Comment on above: A serum folate dmitry ntration of less than 3.1 ng/mL isconsidered to represent clinical deficiency. PATIENT WAS FASTINGP ERFORMED BY: BAIRON [employer] Edbclf6079 Ritter PharmaceuticalsAtrium Health Union West [id number] RHEUMATOID FACTOR-QUANT (000 21)Ordered By: Media Sales Executive on 02-21-2016 Rheumatoid factor Qn 7.6 {IU/mL} Normal 0.0-13.9 [facility] prehensive Internal Medicine Work Phone: Comment on above: PATIENT WAS FASTINGP ERFORMED BY: BAIRON ONEight[employer]70 [address] Gelato FiascoAtrium Health Union West [id number] Rheumatoid factor Qn 7.6 [IU]/mL Normal 0.0-13.9 Com prehensive Internal Medicine; [facility] Work Phone: Comment on above: PATIENT WAS FASTINGP ERFORMED BY: [employer]6370 [address] [facility] [place] [id number] SED RATE ERYTHROCYTE (88388) Ordered By: Media Sales Executive on 02-21-2016 ESR (Bld) [Velocity] 3 mm/h Normal 0-32 Comp rehensive Internal Medicine Work Phone: Comment on above: PATIENT WAS FASTINGP ERFORMED BY: [employer]6370 [address] [facility] [place] [id number] T3, FREE (TRIDOTHYRONINE) (7 5963)Ordered By: Media Sales Executive on 02-21-2016 Free T3 [Mass/Vol] 2.9 pg/mL Normal 2.0-4.[address] [facility] Internal Medicine Work Phone: Comment on above: PATIENT WAS FASTINGP ERFORMED BY: BAIRON [facility] Dowdoj4981 Ramírez RoadDublin [place] [id number] T4, FREE (THYROXINE) (44912) Ordered By: Media Sales Executive on 02-21-2016 Free T4 [Mass/Vol] 1.33 ng/dL Normal 0.82-1.[address] [facility] Internal Medicine Work Phone: Comment on above: PATIENT WAS FASTINGP ERFORMED BY: BAIRON [facility] Zufovz9871 Ramírez RoadDublin [place] [id number] TSH (84661)Ordered By: Syste m Field Marketing Representative on 02-21-2016 TSH Qn 1.890 {uIU/mL} Normal 0.450-4.500 [facility] Internal Medicine Work Phone: Comment on above: PATIENT WAS FASTINGP ERFORMED BY: BAIRON [facility] Dxliws1437 Ramírez RoadDublin [place] [id number] METABOLIC PANEL, COMPREHENSI VE (67206)Ordered By: Media Sales Executive on 12-07-2015 Albumin [Mass/Vol] 4.3 g/dL Normal 3.5-5.[address] [facility] Internal Medicine Work Phone: Comment on above: PATIENT WAS FASTINGP ERFORMED BY: BAIRON [facility] Vziagx2847 [address] [facility] [id number] Information: 615648,[id number] Albumin/Globulin [Mass ratio] 1.6 {ratio} Normal 1.1-2.5 [facility] Internal Medicine Work Phone: Comment on above: PATIENT WAS FASTINGP ERFORMED BY: [facility] Szfmke2035 Ramírez RoadDublin [place] [id number] Information: 114175,[id number] ALP [Catalytic activity/Vol] 70 [iU]/L Normal 39-117 [facility] Internal Medicine Work Phone: Comment on above: PATIENT WAS FASTINGP ERFORMED BY: CB [facility] Kgdpht1228 Ramírez RoadDublin [place] [id number] Information: [id number] ALP [Catalytic activity/Vol] 70 U/L Normal 39-117 [facility]; [facility] Work Phone: Comment on above: PATIENT WAS FASTINGP ERFORMED BY: BAIRON Callahan Plnxkr5647 [address] [facility] Memorial Health CenterSidblin [place] [id number] Information: 405108,[id number] ALT [Catalytic activity/Vol] 12 [iU]/L Normal 0-32 [facility] Work Phone: Comment on above: PATIENT WAS FASTINGP ERFORMED BY: LabPhilip Ville 7444770 [address] [facility] [id number] Information: [id number] ALT [Catalytic activity/Vol] 12 U/L Normal 0-32 [facility]; [facility] Work Phone: Comment on above: PATIENT WAS FASTINGP ERFORMED BY: [address]ox [facility] [id number] Information: 699431,[id number] AST [Catalytic activity/Vol] 15 [iU]/L Normal 0-40 [facility] Work Phone: Comment on above: PATIENT WAS FASTINGP ERFORMED BY: CashPhilip Ville 7444770 [address] [facility] [id number] Information: [id number] AST [Catalytic activity/Vol] 15 U/L Normal 0-40 [facility]; [facility] Work Phone: Comment on above: PATIENT WAS FASTINGP ERFORMED BY: LabAsp[facility]6370 [address] [facility] [id number] Information: [id number],[id number] Bilirubin [Mass/Vol] 0.2 mg/dL Normal 0.0-1.2 [facility] Internal Medicine Work Phone: Comment on above: PATIENT WAS FASTINGP ERFORMED BY: [facility] Vlwvcx3582 [address] [facility] [id number] Information: 814829,[id number] Calcium [Mass/Vol] 9.4 mg/dL Normal 8.7-10.[address] [facility] Internal Medicine Work Phone: Comment on above: PATIENT WAS FASTINGP ERFORMED BY: BAIRON [facility] Bnikty6569 [address] [facility] [place] [id number] Information: 656717,[id number] Chloride [Moles/Vol] 103 mmol/L Normal 97-108 Comp rehensive Internal Medicine Work Phone: Comment on above: PATIENT WAS FASTINGP ERFORMED BY: BAIRON [facility] Ctldxu6886 [address] [facility] [id number] Information: 489683,[id number] CO2 [Moles/Vol] 20 mmol/L Normal 18-29 [facility] Internal Medicine Work Phone: Comment on above: PATIENT WAS FASTINGP ERFORMED BY: BAIRON LabAsp[facility]6370 [facility] [id number] Information: [id number],[id number] Creatinine [Mass/Vol] 0.87 mg/dL Normal 0.57-1.00 [facility] Work Phone: Comment on above: PATIENT WAS FASTINGP ERFORMED BY: BAIRON [facility] Yauafg0244 [facility] [id number] Information: 939489,V45463 GFR/1.73 sq M predicted among blacks CKD-EPI (S/P/Bld) [Vol rate/Area] 93 mL/min/1.73 Normal [facility] Work Phone: Comment on above: PATIENT WAS FASTINGP ERFORMED BY: LabCo Rozagn0016 [address] [facility] [id number] Information: 605716,M75900 GFR/1.73 sq M predicted among non-blacks CKD-EPI (S/P/Bld) [Vol rate/Area] 81 mL/min/1.73 Normal [facility] Work Phone: Comment on above: PATIENT WAS FASTINGP ERFORMED BY: BAIRON [facility] Jkacpm4041 [address] [facility] [id number] Information: 924056,[id number] Globulin (S) [Mass/Vol] 2.7 g/dL Normal 1.5-4.5 [facility] Internal Medicine Work Phone: Comment on above: PATIENT WAS FASTINGP ERFORMED BY: LabAsp[facility]6370 [facility] [id number] Information: 278993,[id number] Glucose [Mass/Vol] 114 mg/dL Abnormal 65-[address] [facility] Internal Medicine Work Phone: Comment on above: PATIENT WAS FASTINGP ERFORMED BY: LabPhilip Ville 7444770 [facility] [id number] Information: 488060,[id number] Potassium [Moles/Vol] 5.0 mmol/L Normal 3.5-5.2 [facility] Internal Medicine Work Phone: Comment on above: PATIENT WAS FASTINGP ERFORMED BY: [place] 0713870 [facility] [id number] Information: 040946,[id number] Protein [Mass/Vol] 7.0 g/dL Normal 6.0-8.[address] [facility] Internal Medicine Work Phone: Comment on above: PATIENT WAS FASTINGP ERFORMED BY: LabPhilip [place] 7444770 [facility] [id number] Information: 215562,[id number] Sodium [Moles/Vol] 136 mmol/L Normal 134-[address] [facility] Internal Medicine Work Phone: Comment on above: PATIENT WAS FASTINGP ERFORMED BY: [facility] Fdtygw2006 [facility] [id number] Information: [id number] Urea nitrogen [Mass/Vol] 14 mg/dL Normal 6-24 [facility] Internal Medicine Work Phone: Comment on above: PATIENT WAS FASTINGP ERFORMED BY: LabAsp[facility]6370 [facility] [id number] Information: 018622,[id number] Urea nitrogen/Creatinine [Mass ratio] 16 mg/mg Normal 9-23 [facility] Work Phone: Comment on above: PATIENT WAS FASTINGP ERFORMED BY: BAIRON [employer] Aqjcgm3142 [address] Gelato FiascoHighlands-Cashiers Hospitalin [place] [id number] Information: [id number] TSH (24258)Ordered By: Syste m Field Marketing Representative on 12-07-2015 TSH Qn 11.420 {uIU/mL} Abnormal 0.450-4.500 [facility] Work Phone: Comment on above: ADDENDA: pt has apt today PATIENT WAS FASTINGP ERFORMED BY: BAIRON [facility] Eewctt5576 [address] Nimbus LLCin [place] [id number] Vitamin D Hydroxy (82521)Ord ered By: Media Sales Executive on 12-07-2015 25-Hydroxyvitamin D2+25-Hydroxyvitamin D3 [Mass/Vol] 32.2 ng/mL Normal 30.0-100.0 [facility] Work Phone: Comment on above: Vitamin D deficiency has been defined by the Julian ofMedicine and an Endocrine Society practice guideline as alevel of serum 25-OH vitamin D less than 20 ng/mL (1,2).The Endocrine Society went on to further define vitamin Dinsufficiency as a level between 21 and 29 ng/mL (2).1. IOM (Julian of Medicine). 2010. Dietary reference intakes for calcium and D. [place]: The National Academies Press.2. Kathryn MF, Jennifer NC, Floyd AWAN, et al. Evaluation, treatment, and prevention of vitamin D deficiency: an Endocrine Society clinical practice guideline. JCEM. 2010; 96(7):1911-30. PATIENT WAS FASTINGP ERFORMED BY: BAIRON [facility] Evleup2336 [address] Nimbus LLCblin [place] [id number] LIPID PANEL (48396)Ordered B y: Media Sales Executive on 07-23-2015 Cholesterol [Mass/Vol] 175 mg/dL Normal 100-199 Co mprehensive Internal Medicine Work Phone: Comment on above: PATIENT WAS FASTINGP ERFORMED BY: BAIRON [facility] Jqtvkv3487 RamírezUniversity [facility] [id number] Information: 615989,[id number]; apt tomorrow Cholesterol in HDL [Mass/Vol] 57 mg/dL Normal [facility] Work Phone: Comment on above: According to ATP-III Guidelines, HDL-C >59 mg/dL is considered anegative risk factor for CHD. PATIENT WAS FASTINGP ERFORMED BY: BAIRON [facility] Alieew5799 [facility] [id number] Information: 573022,[id number]; apt tomorrow Cholesterol in LDL [Mass/Vol] 86 mg/dL Normal 0-99 [facility] Work Phone: Comment on above: PATIENT WAS FASTINGP ERFORMED BY: BAIRON [facility] Liovhr0950 [facility] [id number] Information: 940601,[id number]; apt tomorrow Cholesterol in LDL/Cholesterol in HDL [Mass ratio] 1.5 {ratio_units} Normal 0.0-3.2 [facility] Work Phone: Comment on above: LDL/HDL Ratio Men Wo men 1/2 Avg.Risk 1.0 1.5 Avg.Risk 3.6 3.2 2X Avg.Risk 6.2 5.0 3X Avg.Risk 8.0 6.1 PATIENT WAS FASTINGP ERFORMED BY: BAIRON [facility]6370 [facility] [id number] Information: 155908,[id number]; apt tomorrow Cholesterol in VLDL [Mass/Vol] 32 mg/dL Normal 5-40 [facility] Work Phone: Comment on above: PATIENT WAS FASTINGP ERFORMED BY: [facility]Co Xturxi6192 [facility] [id number] Information: 424581,[id number]; apt tomorrow Triglyceride [Mass/Vol] 159 mg/dL Abnormal 0-149 [facility] Work Phone: Comment on above: PATIENT WAS FASTINGP ERFORMED BY: [facility] Kbjxuz1637 [facility] [id number] Information: 839459,[id number]; apt tomorrow TSH (98943)Ordered By: Darius fierro Field Marketing Representative on 07-23-2015 TSH Qn 0.984 {uIU/mL} Normal 0.450-4.500 [facility] Internal Medicine Work Phone: Comment on above: PATIENT WAS FASTINGP ERFORMED BY: CB [facility] Saytew1216 Ramírez RoadDublin [place] [id number] VITAMIN B-12 (CYANOCOBALAMIN ) (56776)Ordered By: Media Sales Executive on 07-23-2015 Cobalamin (Vitamin B12) [Mass/Vol] 421 pg/mL Normal 211-946 [facility] Work Phone: Comment on above: PATIENT WAS FASTINGP ERFORMED BY: CB [facility] Rtoeuh2843 Ramírez RoadDublin [place] [id number] Vitamin D Hydroxy (10884)Ord ered By: Media Sales Executive on 07-23-2015 25-Hydroxyvitamin D2+25-Hydroxyvitamin D3 [Mass/Vol] 31.7 ng/mL Normal 30.0-100.0 [facility] Internal Medicine Work Phone: Comment on above: Vitamin D deficiency has been defined by the Julian ofMedicine and an Endocrine Society practice guideline as alevel of serum 25-OH vitamin D less than 20 ng/mL (1,2).The Endocrine Society went on to further define vitamin Dinsufficiency as a level between 21 and 29 ng/mL (2).1. IOM (Julian of Medicine). 2010. Dietary reference intakes for calcium and D. [place]: The National Academies Press.2. Kathryn MF, Jennifer NC, Floyd AWAN, et al. Evaluation, treatment, and prevention of vitamin D deficiency: an Endocrine Society clinical practice guideline. JCEM. 2010; 96(7):1911-30. PATIENT WAS FASTINGP ERFORMED BY: CB [facility] Xoxhpe8782 Ramírez RoadDublin [place] [id number] CALCIFEDIOL (84783)Ordered B y: Media Sales Executive on 02-27-2015 25-Hydroxyvitamin D2+25-Hydroxyvitamin D3 [Mass/Vol] 30.6 ng/mL Normal 30.0-100.0 [facility] Work Phone: Comment on above: Vitamin D deficiency has been defined by the Julian ofMedicine and an Endocrine Society practice guideline as alevel of serum 25-OH vitamin D less than 20 ng/mL (1,2).The Endocrine Society went on to further define vitamin Dinsufficiency as a level between 21 and 29 ng/mL (2).1. IOM (Julian of Medicine). 2010. Dietary reference intakes for calcium and D. [place]: The National Academies Press.2. Kathryn MF, Jennifer VILLASEÑOR, Floyd AWAN, et al. Evaluation, treatment, and prevention of vitamin D deficiency: an Endocrine Society clinical practice guideline. JCEM. 2010; 96(7):1911-30. PATIENT WAS FASTINGP ERFORMED BY: [employer]6370 PlayLabblin [place] [id number] CBC WITH MANUAL DIFF (52427) Ordered By: Media Sales Executive on 02-27-2015 Basophils (Bld) [#/Vol] 0.0 {x10E3/uL} Normal 0.0-0.2 [facility] Work Phone: Comment on above: PATIENT WAS FASTINGP ERFORMED BY: [employer]ical[employer] LabGAMEVILrp Ddnenp4379 PlayLabblin [place] [id number] Information: 150522,[id number]; normal and has apt this thursday Basophils (Bld) [#/Vol] 0.0 10*3/uL Normal 0.0-0.2 [facility]; [facility] Work Phone: Comment on above: PATIENT WAS FASTINGP ERFORMED BY: [employer] LabGAMEVILrp Kfvhaq1593 [address] Gelato FiascoDublin [place] [id number] Information: 825382,[id number]; normal and has apt this thursday Basophils/100 WBC (Bld) 0 % Normal [facility] Work Phone: Comment on above: PATIENT WAS FASTINGP ERFORMED BY: [employer] Pstpil2809 PlayLabblin [place] [id number] Information: 120806,R00569; normal and has apt this thursday Eosinophils (Bld) [#/Vol] 0.1 {x10E3/uL} Normal 0.0-0.4 [facility] Work Phone: Comment on above: PATIENT WAS FASTINGP ERFORMED BY: [address] [id number] Information: 941858,[id number]; normal and has apt this thursday Eosinophils (Bld) [#/Vol] 0.1 10*3/uL Normal 0.0-0.4 [facility]; [facility] Work Phone: Comment on above: PATIENT WAS FASTINGP ERFORMED BY: [address] [id number] Information: 581550,[id number]; normal and has apt this thursday Eosinophils/100 WBC (Bld) 1 % Normal [facility] Work Phone: Comment on above: PATIENT WAS FASTINGP ERFORMED BY: [address] [id number] Information: 110949,[id number]; normal and has apt this thursday Erythrocyte distribution width (RBC) [Ratio] 13.2 % Normal 12.3-15.4 [facility] Work Phone: Comment on above: PATIENT WAS FASTINGP ERFORMED BY: [address] [id number] Information: 130140,[id number]; normal and has apt this thursday Hematocrit (Bld) [Volume fraction] 38.8 % Normal 34.0-46.6 [facility] Work Phone: Comment on above: PATIENT WAS FASTINGP ERFORMED BY: [address] [id number] Information: 233730,[id number]; normal and has apt this thursday Hemoglobin (Bld) [Mass/Vol] 13.1 g/dL Normal 11.1-15.9 [facility] Work Phone: Comment on above: PATIENT WAS FASTINGP ERFORMED BY: BAIRON [facility]6370 [facility] [id number] Information: 357890,[id number]; normal and has apt this thursday Immature granulocytes (Bld) [#/Vol] 0.0 {x10E3/uL} Normal 0.0-0.1 [facility] Work Phone: Comment on above: PATIENT WAS FASTINGP ERFORMED BY: [address] [id number] Information: 287195,[id number]; normal and has apt this thursday Immature granulocytes (Bld) [#/Vol] 0.0 10*3/uL Normal 0.0-0.1 [facility]; [facility] Work Phone: Comment on above: PATIENT WAS FASTINGP ERFORMED BY: BAIRON [facility] Hctnjk[address] [id number] Information: [id number]; normal and has apt this thursday Immature granulocytes/100 WBC (Bld) 0 % Normal [facility] Work Phone: Comment on above: PATIENT WAS FASTINGP ERFORMED BY: BAIRON [facility]Kind[facility] Hospital Jaynte20[address] [id number] Information: 261361,[id number]; normal and has apt this thursday Lymphocytes (Bld) [#/Vol] 1.7 {x10E3/uL} Normal 0.7-3.1 [facility] Work Phone: Comment on above: PATIENT WAS FASTINGP ERFORMED BY: [facility]6370 [facility] [id number] Information: 620103,[id number]; normal and has apt this thursday Lymphocytes (Bld) [#/Vol] 1.7 10*3/uL Normal 0.7-3.1 [facility]; [facility] Work Phone: Comment on above: PATIENT WAS FASTINGP ERFORMED BY: [place] 0713870 [facility] [id number] Information: 202894,[id number]; normal and has apt this thursday Lymphocytes/100 WBC (Bld) 31 % Normal [facility] Work Phone: Comment on above: PATIENT WAS FASTINGP ERFORMED BY: [address] [id number] Information: [id number]; normal and has apt this thursday MCH (RBC) [Entitic mass] 31.0 pg Normal 26.6-33.0 [facility] Work Phone: Comment on above: PATIENT WAS FASTINGP ERFORMED BY: [address] [id number] Information: 738819,[id number]; normal and has apt this thursday MCHC (RBC) [Mass/Vol] 33.8 g/dL Normal 31.5-35.7 [facility] Work Phone: Comment on above: PATIENT WAS FASTINGP ERFORMED BY: [address] [id number] Information: [id number]; normal and has apt this thursday MCV (RBC) [Entitic vol] 92 fL Normal 79-97 [facility] Work Phone: Comment on above: PATIENT WAS FASTINGP ERFORMED BY: [address] [id number] Information: 140680,[id number]; normal and has apt this thursday Monocytes (Bld) [#/Vol] 0.5 {x10E3/uL} Normal 0.1-0.9 [facility] Work Phone: Comment on above: PATIENT WAS FASTINGP ERFORMED BY: [address] [id number] Information: 204013,F07752; normal and has apt this thursday Monocytes (Bld) [#/Vol] 0.5 10*3/uL Normal 0.1-0.9 [facility]; [facility] Work Phone: Comment on above: PATIENT WAS FASTINGP ERFORMED BY: BAIRON [facility] Hrwqqb3013 Ram[address] [facility] [id number] Information: 043410,[id number]; normal and has apt this thursday Monocytes/100 WBC (Bld) 9 % Normal [facility] Work Phone: Comment on above: PATIENT WAS FASTINGP ERFORMED BY: CB [facility] Rrqhnv1925 [address] [facility] [id number] Information: 589047,[id number]; normal and has apt this thursday Neutrophils (Bld) [#/Vol] 3.1 {x10E3/uL} Normal 1.4-7.0 [facility] Work Phone: Comment on above: PATIENT WAS FASTINGP ERFORMED BY: [facility] Ijmcuz7597 [facility] [id number] Information: 535551,[id number]; normal and has apt this thursday Neutrophils (Bld) [#/Vol] 3.1 10*3/uL Normal 1.4-7.0 [facility]; [facility] Work Phone: Comment on above: PATIENT WAS FASTINGP ERFORMED BY: [facility] Pbgadf5173 [facility] [id number] Information: 982354,F19347; normal and has apt this thursday Neutrophils/100 WBC (Bld) 59 % Normal [facility] Work Phone: Comment on above: PATIENT WAS FASTINGP ERFORMED BY: [facility] Hippba6548 [facility] [id number] Information: 188628,[id number]; normal and has apt this thursday Platelets (Bld) [#/Vol] 301 {x10E3/uL} Normal 150-379 [facility] Work Phone: Comment on above: PATIENT WAS FASTINGP ERFORMED BY: [facility] Lehhlk1249 [facility] [id number] Information: 525600,[id number]; normal and has apt this thursday Platelets (Bld) [#/Vol] 301 10*3/uL Normal 150-379 [facility] Internal Medicine; [facility] Work Phone: Comment on above: PATIENT WAS FASTINGP ERFORMED BY: [facility] Tepoiy8084 [facility] [id number] Information: 399575,[id number]; normal and has apt this thursday RBC (Bld) [#/Vol] 4.22 {x10E6/uL} Normal 3.77-5.28 [facility] Internal Medicine Work Phone: Comment on above: PATIENT WAS FASTINGP ERFORMED BY: LabPhilip V[place] 7444770 [facility] [id number] Information: 743077,S15072; normal and has apt this thursday RBC (Bld) [#/Vol] 4.22 10*6/uL Normal 3.77-5.28 [facility] Internal Medicine; [facility] Work Phone: Comment on above: PATIENT WAS FASTINGP ERFORMED BY: [facility]6370 [facility] [id number] Information: 996933,[id number]; normal and has apt this thursday WBC (Bld) [#/Vol] 5.3 {x10E3/uL} Normal 3.4-10.8 [facility] Internal Medicine Work Phone: Comment on above: PATIENT WAS FASTINGP ERFORMED BY: [facility]6370 [facility] [id number] Information: [id number],[id number]; normal and has apt this thursday WBC (Bld) [#/Vol] 5.3 10*3/uL Normal 3.4-10.[address] [facility] Internal Medicine; [facility] Work Phone: Comment on above: PATIENT WAS FASTINGP ERFORMED BY: [facility]6370 [facility] [id number] Information: 800262,S23074; normal and has apt this thursday Metabolic Panel, Comprehensi ve (46460)Ordered By: Media Sales Executive on 02-27-2015 Albumin [Mass/Vol] 4.2 g/dL Normal 3.5-5.5 [facility] Internal [facility] Work Phone: Comment on above: PATIENT WAS FASTINGP ERFORMED BY: CB [facility] Ydpeye7848 [address]írez RoadDublin [place] [id number] Albumin/Globulin [Mass ratio] 1.6 {ratio} Normal 1.1-2.5 [facility] Work Phone: Comment on above: PATIENT WAS FASTINGP ERFORMED BY: CB [facility] Fhptbf3610 [address]írez RoadDublin [place] [id number] ALP [Catalytic activity/Vol] 73 [iU]/L Normal 39-117 [facility] Work Phone: Comment on above: PATIENT WAS FASTINGP ERFORMED BY: CB [facility] Evnblm2649 Ramírez RoadDublin [place] [id number] ALP [Catalytic activity/Vol] 73 U/L Normal 39-117 [facility]; [facility] Work Phone: Comment on above: PATIENT WAS FASTINGP ERFORMED BY: CB [facility] Oulwcn1023 [address] RoadDublin [place] [id number] ALT [Catalytic activity/Vol] 14 [iU]/L Normal 0-32 [facility] Work Phone: Comment on above: PATIENT WAS FASTINGP ERFORMED BY: CB [facility] Skfjtr8018 [address]írez RoadDublin [place] [id number] ALT [Catalytic activity/Vol] 14 U/L Normal 0-32 [facility]; [facility] Work Phone: Comment on above: PATIENT WAS FASTINGP ERFORMED BY: CB [facility] Ygfwbe3286 [address]írez RoadDublin [place] [id number] AST [Catalytic activity/Vol] 14 [iU]/L Normal 0-40 [facility] Work Phone: Comment on above: PATIENT WAS FASTINGP ERFORMED BY: CB [facility] Rolpjw7166 [address] RoadDublin [place] [id number] AST [Catalytic activity/Vol] 14 U/L Normal 0-40 [facility]; [facility] Work Phone: Comment on above: PATIENT WAS FASTINGP ERFORMED BY: BAIRON [facility] Rimxoj6734 [address] RoadDublin [place] [id number] Bilirubin [Mass/Vol] 0.4 mg/dL Normal 0.0-1.2 [facility]erens[facility] Internal [facility] Work Phone: Comment on above: PATIENT WAS FASTINGP ERFORMED BY: BAIRON [facility] Qcmyqp2737 [address]írez RoadDublin [place] [id number] Calcium [Mass/Vol] 9.0 mg/dL Normal 8.7-10.[address] [facility] Internal Medicine Work Phone: Comment on above: PATIENT WAS FASTINGP ERFORMED BY: BAIRON [facility]Kind[facility] Rrslsh5012 Ramírez RoadHighlands-Cashiers Hospitalin [place] [id number] Chloride [Moles/Vol] 102 mmol/L Normal 97-108 [facility] Internal Medicine Work Phone: Comment on above: PATIENT WAS FASTINGP ERFORMED BY: BAIRON LabKind[facility] Hnmjqz3478 Ramírez Roadblin [place] [id number] CO2 [Moles/Vol] 21 mmol/L Normal 18-29 [facility] Internal Medicine Work Phone: Comment on above: PATIENT WAS FASTINGP ERFORMED BY: BAIRON LabKind[facility] Zcuici5408 [address]írez RoadDublin [place] [id number] Creatinine [Mass/Vol] 0.77 mg/dL Normal 0.57-1.00 [facility] Internal Medicine Work Phone: Comment on above: PATIENT WAS FASTINGP ERFORMED BY: [facility] Wgvqco8435 [address]írez RoadDublin [place] [id number] GFR/1.73 sq M predicted among blacks CKD-EPI (S/P/Bld) [Vol rate/Area] 108 mL/min/1.73 Normal [facility] Internal Medicine Work Phone: Comment on above: PATIENT WAS FASTINGP ERFORMED BY: [facility] Ybqgvc1281 [address]írez RoadDublin [place] [id number] GFR/1.73 sq M predicted among non-blacks CKD-EPI (S/P/Bld) [Vol rate/Area] 94 mL/min/1.73 Normal [facility] Internal Medicine Work Phone: Comment on above: PATIENT WAS FASTINGP ERFORMED BY: BAIRON Perez6370 [facility] [id number] Globulin (S) [Mass/Vol] 2.7 g/dL Normal 1.5-4.5 [facility] Internal Medicine Work Phone: Comment on above: PATIENT WAS FASTINGP ERFORMED BY: BAIRON Mijareslin6370 [facility] [id number] Glucose [Mass/Vol] 94 mg/dL Normal 65-[address] [facility] Internal Medicine Work Phone: Comment on above: PATIENT WAS FASTINGP ERFORMED BY: BAIRON Perez6370 [facility] [id number] Potassium [Moles/Vol] 4.4 mmol/L Normal 3.5-5.2 [facility] Internal Medicine Work Phone: Comment on above: PATIENT WAS FASTINGP ERFORMED BY: BAIRON Mijareslin6370 [facility] [id number] Protein [Mass/Vol] 6.9 g/dL Normal 6.0-8.[address] [facility] Internal Medicine Work Phone: Comment on above: PATIENT WAS FASTINGP ERFORMED BY: BAIRON LabTed Koqure1033 [address] [facility] [id number] Sodium [Moles/Vol] 138 mmol/L Normal 134-[address] [facility] Internal Medicine Work Phone: Comment on above: PATIENT WAS FASTINGP ERFORMED BY: BAIRON LabRohini MijaresNmlmpw3599 [address] [facility] [id number] Urea nitrogen [Mass/Vol] 11 mg/dL Normal 6-24 [facility] Internal Medicine Work Phone: Comment on above: PATIENT WAS FASTINGP ERFORMED BY: BAIRON LabTed Xclkqu5720 [facility] [id number] Urea nitrogen/Creatinine [Mass ratio] 14 mg/mg Normal 9-23 [facility] Work Phone: Comment on above: PATIENT WAS FASTINGP ERFORMED BY: BAIRON [facility] Jcmima6272 [address] [facility] Centerblin [place] [id number] TSH (02874)Ordered By: Akashi Therapeuticse m Field Marketing Representative on 02-27-2015 TSH Qn 4.500 {uIU/mL} Normal 0.450-4.500 [facility] Internal Medicine Work Phone: Comment on above: PATIENT WAS FASTINGP ERFORMED BY: [facility] Czkdlh0147 [address] [facility]in [place] [id number] VITAMIN B-12 (CYANOCOBALAMIN ) (58350)Ordered By: Media Sales Executive on 02-27-2015 Cobalamin (Vitamin B12) [Mass/Vol] 368 pg/mL Normal 211-946 [facility] Internal Medicine Work Phone: Comment on above: PATIENT WAS FASTINGP ERFORMED BY: [facility] Rpltmh3451 [address] [facility] [id number] TSH (35801)Ordered By: Amen. m Field Marketing Representative on 02-06-2014 TSH Qn 0.510 {uIU/mL} Normal 0.450-4.500 [facility] Internal Medicine Work Phone: Comment on above: PATIENT NOT FASTINGP ERFORMED BY: [facility] Mpccav6435 [facility] [id number] Information: [id number] CALCIFEDIOL (26564)Ordered B y: Media Sales Executive on 12-21-2013 25-Hydroxyvitamin D2+25-Hydroxyvitamin D3 [Mass/Vol] 24.4 ng/mL Abnormal 30.0-100.0 [facility] Internal Medicine Work Phone: Comment on above: Vitamin D deficiency has been defined by the Julian ofMedicine and an Endocrine Society practice guideline as alevel of serum 25-OH vitamin D less than 20 ng/mL (1,2).The Endocrine Society went on to further define vitamin Dinsufficiency as a level between 21 and 29 ng/mL (2).1. IOM (Julian of Medicine). 2010. Dietary reference intakes for calcium and D. [place]: The National Academies Press.2. Kathryn MF, Jennifer VILLASEÑOR, Floyd AWAN, et al. Evaluation, treatment, and prevention of vitamin D deficiency: an Endocrine Society clinical practice guideline. JCEM. 2010; 96(7):1911-30. PATIENT WAS FASTINGP ERFORMED BY: [facility] Ivcuiv7208 [facility] [id number] CBC with manual diff (40400) Ordered By: Media Sales Executive on 12-21-2013 Basophils (Bld) [#/Vol] 0.0 {x10E3/uL} Normal 0.0-0.2 [facility] Work Phone: Comment on above: PATIENT WAS FASTINGP ERFORMED BY: LabCameron Regional Medical CenterUdagei0907 [facility] [id number] Information: [id number],[id number] Basophils (Bld) [#/Vol] 0.0 10*3/uL Normal 0.0-0.2 [facility]; [facility] Work Phone: Comment on above: PATIENT WAS FASTINGP ERFORMED BY: LabCameron Regional Medical CenterEoexfe6773 [facility] [id number] Information: 473562,J72549 Basophils/100 WBC (Bld) 0 % Normal 0-3 [facility] Work Phone: Comment on above: PATIENT WAS FASTINGP ERFORMED BY: LabKindred Hospital Wyesxj1426 [facility] [id number] Information: 124168,[id number] Eosinophils (Bld) [#/Vol] 0.1 {x10E3/uL} Normal 0.0-0.4 [facility] Work Phone: Comment on above: PATIENT WAS FASTINGP ERFORMED BY: LabKind[facility] Zvmokq4186 [facility] [id number] Information: 362748,Z88785 Eosinophils (Bld) [#/Vol] 0.1 10*3/uL Normal 0.0-0.4 [facility]; [facility] Work Phone: Comment on above: PATIENT WAS FASTINGP ERFORMED BY: BAIRON Castrejon[address] [id number] Information: 691857,S16229 Eosinophils/100 WBC (Bld) 2 % Normal 0-5 [facility] Work Phone: Comment on above: PATIENT WAS FASTINGP ERFORMED BY: [address] [id number] Information: 622137,A93796 Erythrocyte distribution width (RBC) [Ratio] 12.9 % Normal 12.3-15.4 [facility] Work Phone: Comment on above: PATIENT WAS FASTINGP ERFORMED BY: [address] [id number] Information: [id number] Hematocrit (Bld) [Volume fraction] 39.4 % Normal 34.0-46.6 [facility] Work Phone: Comment on above: PATIENT WAS FASTINGP ERFORMED BY: [address] [id number] Information: 112337,Z54067 Hemoglobin (Bld) [Mass/Vol] 13.3 g/dL Normal 11.1-15.9 [facility] Work Phone: Comment on above: PATIENT WAS FASTINGP ERFORMED BY: [address] [id number] Information: 182343,[id number] Immature granulocytes (Bld) [#/Vol] 0.0 {x10E3/uL} Normal 0.0-0.1 [facility] Work Phone: Comment on above: PATIENT WAS FASTINGP ERFORMED BY: [address] [id number] Information: 525633,U88759 Immature granulocytes (Bld) [#/Vol] 0.0 10*3/uL Normal 0.0-0.1 [facility]; [facility] Work Phone: Comment on above: PATIENT WAS FASTINGP ERFORMED BY: BAIRON Perez6370 [facility] [id number] Information: 400087,J90455 Immature granulocytes/100 WBC (Bld) 0 % Normal 0-2 [facility] Work Phone: Comment on above: PATIENT WAS FASTINGP ERFORMED BY: [address] [id number] Information: 985830,Z16719 Lymphocytes (Bld) [#/Vol] 2.3 {x10E3/uL} Normal 0.7-3.1 [facility] Work Phone: Comment on above: PATIENT WAS FASTINGP ERFORMED BY: [address] [id number] Information: 266371,[id number] Lymphocytes (Bld) [#/Vol] 2.3 10*3/uL Normal 0.7-3.1 [facility]; [facility] Work Phone: Comment on above: PATIENT WAS FASTINGP ERFORMED BY: [place] Vkvqig[address] [id number] Information: 078236,Y86717 Lymphocytes/100 WBC (Bld) 29 % Normal 14-46 [facility] Work Phone: Comment on above: PATIENT WAS FASTINGP ERFORMED BY: [address] [id number] Information: 850218,I01082 MCH (RBC) [Entitic mass] 31.3 pg Normal 26.6-33.0 [facility] Work Phone: Comment on above: PATIENT WAS FASTINGP ERFORMED BY: [place] 0713870 [facility] [id number] Information: 451397,Z41636 MCHC (RBC) [Mass/Vol] 33.8 g/dL Normal 31.5-35.7 [facility] prehensive Internal Medicine Work Phone: Comment on above: PATIENT WAS FASTINGP ERFORMED BY: BAIRON Callahan Umfrmy2351 [facility] [id number] Information: 923158,H56923 MCV (RBC) [Entitic vol] 93 fL Normal 79-97 [facility] Work Phone: Comment on above: PATIENT WAS FASTINGP ERFORMED BY: [address] [id number] Information: 130144,J53447 Monocytes (Bld) [#/Vol] 0.5 {x10E3/uL} Normal 0.1-0.9 [facility] Internal Medicine Work Phone: Comment on above: PATIENT WAS FASTINGP ERFORMED BY: [address] [id number] Information: 987916,[id number] Monocytes (Bld) [#/Vol] 0.5 10*3/uL Normal 0.1-0.9 [facility]; [facility] Work Phone: Comment on above: PATIENT WAS FASTINGP ERFORMED BY: BAIRON CastrejonKindred Hospital Adhfhl33[address] [id number] Information: 516017,G41351 Monocytes/100 WBC (Bld) 7 % Normal 4-12 [facility] Work Phone: Comment on above: PATIENT WAS FASTINGP ERFORMED BY: [address] [id number] Information: 685120,W48535 Neutrophils (Bld) [#/Vol] 4.9 {x10E3/uL} Normal 1.4-7.0 [facility] Internal Medicine Work Phone: Comment on above: PATIENT WAS FASTINGP ERFORMED BY: [address] [id number] Information: 886170,S91366 Neutrophils (Bld) [#/Vol] 4.9 10*3/uL Normal 1.4-7.0 [facility]; [facility] Work Phone: Comment on above: PATIENT WAS FASTINGP ERFORMED BY: BAIRON Perez63Yolanda [facility]rosOur [facility] [id number] Information: 734134,L51285 Neutrophils/100 WBC (Bld) 62 % Normal 40-74 [facility] Work Phone: Comment on above: PATIENT WAS FASTINGP ERFORMED BY: BAIRON CastrejonCo Xjjecu1750 [address] [facility] [id number] Information: 576484,L38118 Platelets (Bld) [#/Vol] 276 {x10E3/uL} Normal 150-379 [facility] Internal Medicine Work Phone: Comment on above: Please note refere nce interval change PATIENT WAS FASTINGP ERFORMED BY: BAIRON Callahan Epzzej6164 [facility] [id number] Information: 182475,T69785 Platelets (Bld) [#/Vol] 276 10*3/uL Normal 150-379 [facility]; [facility] Internal Medicine Work Phone: Comment on above: Please note refere nce interval change PATIENT WAS FASTINGP ERFORMED BY: BAIRON Callahan Opqttq4000 [facility] [id number] Information: 916742,[id number] RBC (Bld) [#/Vol] 4.25 {x10E6/uL} Normal 3.77-5.28 [facility] Internal Medicine Work Phone: Comment on above: PATIENT WAS FASTINGP ERFORMED BY: BAIRON Callahan Bbziyr9284 [facility] [id number] Information: 088179,Y12145 RBC (Bld) [#/Vol] 4.25 10*6/uL Normal 3.77-5.28 [facility] Internal Medicine; [facility] Work Phone: Comment on above: PATIENT WAS FASTINGP ERFORMED BY: BAIRON Perez6370 [facility]rezUniversity [facility] [id number] Information: 886295,S50168 WBC (Bld) [#/Vol] 7.9 {x10E3/uL} Normal 3.4-10.8 [facility] Work Phone: Comment on above: PATIENT WAS FASTINGP ERFORMED BY: BAIRON Perez6370 [facility] [id number] Information: 177195,G41244 WBC (Bld) [#/Vol] 7.9 10*3/uL Normal 3.4-10.[address] [facility] Internal Medicine; [facility] Work Phone: Comment on above: PATIENT WAS FASTINGP ERFORMED BY: BAIRON Perez6370 [facility] [id number] Information: 434278,R52321 Lipid Panel (61893)Ordered B y: Media Sales Executive on 12-21-2013 Cholesterol [Mass/Vol] 187 mg/dL Normal 100-199 [facility] Internal Medicine Work Phone: Comment on above: PATIENT WAS FASTINGP ERFORMED BY: BAIRON Perez6370 [facility] [id number] Cholesterol in HDL [Mass/Vol] 59 mg/dL Normal [facility] Work Phone: Comment on above: According to ATP-III Guidelines, HDL-C >59 mg/dL is considered anegative risk factor for CHD. PATIENT WAS FASTINGP ERFORMED BY: BAIRON Callahan Ttzztw5782 [facility] [id number] Cholesterol in LDL [Mass/Vol] 98 mg/dL Normal 0-99 [facility] Work Phone: Comment on above: PATIENT WAS FASTINGP ERFORMED BY: BAIRON Mijareslin6370 [facility] [id number] Cholesterol in LDL/Cholesterol in HDL [Mass ratio] 1.7 {ratio_units} Normal 0.0-3.2 [facility] Work Phone: Comment on above: PATIENT WAS FASTINGP ERFORMED BY: BAIRON [facility] Plazsz6223 [address]írez RoadDublin [place] [id number] Cholesterol in VLDL [Mass/Vol] 30 mg/dL Normal 5-40 [facility] Work Phone: Comment on above: PATIENT WAS FASTINGP ERFORMED BY: BAIRON [facility] Eiulnv7299 [address]írez RoadDublin [place] [id number] Triglyceride [Mass/Vol] 152 mg/dL Abnormal 0-149 [facility] Work Phone: Comment on above: PATIENT WAS FASTINGP ERFORMED BY: BAIRON [facility] Fntspo6844 [address]írez RoadDublin [place] [id number] Metabolic Panel, Comprehensi ve (85232)Ordered By: Media Sales Executive on 12-21-2013 Albumin [Mass/Vol] 4.4 g/dL Normal 3.5-5.[address] [facility] Internal Medicine Work Phone: Comment on above: PATIENT WAS FASTINGP ERFORMED BY: BAIRON [facility] Nqqpmz6991 [address]írez RoadDublin [place] [id number] Albumin/Globulin [Mass ratio] 1.8 {ratio} Normal 1.1-2.5 [facility] Work Phone: Comment on above: PATIENT WAS FASTINGP ERFORMED BY: BAIRON [facility] Wzrlxj1132 [address]írez RoadDublin [place] [id number] ALP [Catalytic activity/Vol] 53 [iU]/L Normal 39-117 [facility] Work Phone: Comment on above: PATIENT WAS FASTINGP ERFORMED BY: CB [facility] Vpxcrq5486 [address]írez RoadDublin [place] [id number] ALP [Catalytic activity/Vol] 53 U/L Normal 39-117 [facility]; [facility] Work Phone: Comment on above: PATIENT WAS FASTINGP ERFORMED BY: CB [facility] Obohxe3702 [address]írez RoadDublin [place] [id number] ALT [Catalytic activity/Vol] 11 [iU]/L Normal 0-32 [facility] Work Phone: Comment on above: PATIENT WAS FASTINGP ERFORMED BY: BAIRON [facility] Asdkda5010 [address] RoadDublin [place] [id number] ALT [Catalytic activity/Vol] 11 U/L Normal 0-32 [facility]; [facility] Work Phone: Comment on above: PATIENT WAS FASTINGP ERFORMED BY: CB [facility] Ohawtx9399 [address] RoadDublin [place] [id number] AST [Catalytic activity/Vol] 17 [iU]/L Normal 0-40 [facility] Work Phone: Comment on above: PATIENT WAS FASTINGP ERFORMED BY: CB [facility] Gmulmm5687 [address] RoadDublin [place] [id number] AST [Catalytic activity/Vol] 17 U/L Normal 0-40 [facility]; [facility] Work Phone: Comment on above: PATIENT WAS FASTINGP ERFORMED BY: BAIRON [facility] Oobfyn7746 [address] RoadDublin [place] [id number] Bilirubin [Mass/Vol] 0.5 mg/dL Normal 0.0-1.2 Comp rehensive Internal Medicine Work Phone: Comment on above: PATIENT WAS FASTINGP ERFORMED BY: BAIRON [facility] Ezxiab9532 [address]írez RoadDublin [place] [id number] Calcium [Mass/Vol] 9.8 mg/dL Normal 8.7-10.[address] [facility] Internal Medicine Work Phone: Comment on above: PATIENT WAS FASTINGP ERFORMED BY: CB [facility] Kvcvfu3192 [address]írez RoadDublin [place] [id number] Chloride [Moles/Vol] 101 mmol/L Normal 97-108 Comp [facility] hospitalensive Internal [facility] Work Phone: Comment on above: PATIENT WAS FASTINGP ERFORMED BY: CB [facility] Ljvdlr0196 [address] RoadDublin [place] [id number] CO2 [Moles/Vol] 23 mmol/L Normal 18-29 Comprehen [facility] Internal Medicine Work Phone: Comment on above: Please note refere nce interval change PATIENT WAS FASTINGP ERFORMED BY: CB [facility] Bytplv2555 [address] RoadDublin [place] [id number] Creatinine [Mass/Vol] 0.66 mg/dL Normal 0.57-1.00 [facility] Internal Medicine Work Phone: Comment on above: PATIENT WAS FASTINGP ERFORMED BY: [facility] Onxxjz7952 Ramírez RoadDublin [place] [id number] GFR/1.73 sq M predicted among blacks CKD-EPI (S/P/Bld) [Vol rate/Area] 125 mL/min/1.73 Normal [facility] Work Phone: Comment on above: PATIENT WAS FASTINGP ERFORMED BY: [facility] Dlbesk5535 Ramírez RoadDublin [place] [id number] GFR/1.73 sq M predicted among non-blacks CKD-EPI (S/P/Bld) [Vol rate/Area] 109 mL/min/1.73 Normal [facility] Internal Medicine Work Phone: Comment on above: PATIENT WAS FASTINGP ERFORMED BY: [facility] Trjxok9970 Ramírez RoadDublin [place] [id number] Globulin (S) [Mass/Vol] 2.4 g/dL Normal 1.5-4.5 [facility] Internal Medicine Work Phone: Comment on above: PATIENT WAS FASTINGP ERFORMED BY: [facility] Cvzvfz3256 Ramírez RoadDublin [place] [id number] Glucose [Mass/Vol] 80 mg/dL Normal 65-[address] [facility] Internal Medicine Work Phone: Comment on above: PATIENT WAS FASTINGP ERFORMED BY: [facility] Qhmdiy5166 [address]írez RoadDublin [place] [id number] Potassium [Moles/Vol] 4.2 mmol/L Normal 3.5-5.2 [facility] Internal Medicine Work Phone: Comment on above: PATIENT WAS FASTINGP ERFORMED BY: [facility] Doozjz9721 Ramírez RoadDublin [place] [id number] Protein [Mass/Vol] 6.8 g/dL Normal 6.0-8.[address] [facility] Internal Medicine Work Phone: Comment on above: PATIENT WAS FASTINGP ERFORMED BY: CB [facility] Okcdjj8094 [address] [facility] [place] [id number] Sodium [Moles/Vol] 139 mmol/L Normal 134-[address] [facility] Internal Medicine Work Phone: Comment on above: PATIENT WAS FASTINGP ERFORMED BY: CB [facility] Wvpffq5872 [address] [facility] [id number] Urea nitrogen [Mass/Vol] 10 mg/dL Normal 6-24 [facility] Work Phone: Comment on above: PATIENT WAS FASTINGP ERFORMED BY: CB [facility] Ruyiya8194 [address] [facility] [id number] Urea nitrogen/Creatinine [Mass ratio] 15 mg/mg Normal 9- [facility] Work Phone: Comment on above: PATIENT WAS FASTINGP ERFORMED BY: [facility] Wthwst4941 [facility] [id number] TSH ([id number])Ordered By: Syste m Field Marketing Representative on 09-19-2013 TSH Qn 0.093 {uIU/mL} Abnormal 0.450-4.500 [facility] Internal Medicine Work Phone: Comment on above: PATIENT NOT FASTINGP ERFORMED BY: [facility] Zmcgil4634 [facility] [id number] Information: [id number], [id number] Lipid Panel (91648)Ordered B y: Media Sales Executive on 06-23-2013 Cholesterol [Mass/Vol] 206 mg/dL Abnormal 100-199 [facility] Internal Medicine Work Phone: Comment on above: PATIENT WAS FASTINGP ERFORMED BY: CB [facility] Pntyyl6801 [address] [facility] [id number] Cholesterol in HDL [Mass/Vol] 66 mg/dL Normal [facility] Internal Medicine Work Phone: Comment on above: According to ATP-III Guidelines, HDL-C >59 mg/dL is considered anegative risk factor for CHD. PATIENT WAS FASTINGP ERFORMED BY: CB [facility] Iaxtxl9669 [facility] [id number] Cholesterol in LDL [Mass/Vol] 116 mg/dL Abnormal 0-99 [facility] Work Phone: Comment on above: PATIENT WAS FASTINGP ERFORMED BY: BAIRON [facility] Uyudcv9614 [facility] [id number] Cholesterol in LDL/Cholesterol in HDL [Mass ratio] 1.8 {ratio_units} Normal 0.0-3.2 [facility] Work Phone: Comment on above: PATIENT WAS FASTINGP ERFORMED BY: [facility] Hkpeio5657 [facility] [id number] Cholesterol in VLDL [Mass/Vol] 24 mg/dL Normal 5-40 [facility] Work Phone: Comment on above: PATIENT WAS FASTINGP ERFORMED BY: [facility]6370 [facility] [id number] Triglyceride [Mass/Vol] 118 mg/dL Normal 0-149 [facility] Work Phone: Comment on above: PATIENT WAS FASTINGP ERFORMED BY: [facility]6370 [facility] [id number] Metabolic Panel, Comprehensi ve (90783)Ordered By: Media Sales Executive on 06-23-2013 Albumin [Mass/Vol] 4.5 g/dL Normal 3.5-5.[address] [facility] Internal Medicine Work Phone: Comment on above: PATIENT WAS FASTINGP ERFORMED BY: [facility] Vbduul5429 [facility] [id number] Information: 303158,R95638 Albumin/Globulin [Mass ratio] 1.5 {ratio} Normal 1.1-2.5 [facility] Work Phone: Comment on above: PATIENT WAS FASTINGP ERFORMED BY: [facility] Cubqmq4120 [facility] [id number] Information: 945218,E28508 ALP [Catalytic activity/Vol] 66 [iU]/L Normal 39-117 [facility] Work Phone: Comment on above: PATIENT WAS FASTINGP ERFORMED BY: BAIRON [facility] Oeyvwr9592 [address]írez RoadHighlands-Cashiers Hospitalin [place] [id number] Information: 967877,J23303 ALP [Catalytic activity/Vol] 66 U/L Normal 39-117 [facility]; [facility] Work Phone: Comment on above: PATIENT WAS FASTINGP ERFORMED BY: BAIRON [facility] Rnqpxr6732 [address] [facility] [place] [id number] Information: 205132,S08116 ALT [Catalytic activity/Vol] 13 [iU]/L Normal 0-32 [facility] Work Phone: Comment on above: PATIENT WAS FASTINGP ERFORMED BY: BAIRON [facility] Vxdsax8001 [address] [facility] [place] [id number] Information: 432140,U52789 ALT [Catalytic activity/Vol] 13 U/L Normal 0-32 [facility]; [facility] Work Phone: Comment on above: PATIENT WAS FASTINGP ERFORMED BY: BAIRON [facility] Bmsxih6455 [address] [facility] [id number] Information: 558335,J06575 AST [Catalytic activity/Vol] 18 [iU]/L Normal 0-40 [facility] Work Phone: Comment on above: PATIENT WAS FASTINGP ERFORMED BY: BAIRON [facility] Uvpjwp9023 [address] [facility] [id number] Information: 228532,[id number] AST [Catalytic activity/Vol] 18 U/L Normal 0-40 [facility]; [facility] Work Phone: Comment on above: PATIENT WAS FASTINGP ERFORMED BY: [facility] Stecdi3030 [address] [facility] [place] [facility] [id number] Information: 087453,Y52304 Bilirubin [Mass/Vol] 0.4 mg/dL Normal 0.0-1.2 [facility] Work Phone: Comment on above: PATIENT WAS FASTINGP ERFORMED BY: [facility] Ztnljw8535 [facility] [id number] Information: 606867,Y04612 Calcium [Mass/Vol] 9.5 mg/dL Normal 8.7-10.[address] [facility] Internal Medicine Work Phone: Comment on above: PATIENT WAS FASTINGP ERFORMED BY: LabCoSelect at BellevilleRfixgq6548 [facility] [id number] Information: 194168,G98922 Chloride [Moles/Vol] 99 mmol/L Normal 97-108 [facility] Work Phone: Comment on above: PATIENT WAS FASTINGP ERFORMED BY: [facility] Dwfrrx3357 [facility] [id number] Information: 796646,R37675 CO2 [Moles/Vol] 22 mmol/L Normal 19-28 [facility] Internal Medicine Work Phone: Comment on above: PATIENT WAS FASTINGP ERFORMED BY: LabCoSelect at BellevillePvpluu1251 [facility] [id number] Information: 821928,L72799 Creatinine [Mass/Vol] 0.73 mg/dL Normal 0.57-1.00 [facility] Internal Medicine Work Phone: Comment on above: PATIENT WAS FASTINGP ERFORMED BY: LabCoSelect at BellevillePbjepp6813 [facility] [id number] Information: 304428,T78892 GFR/1.73 sq M predicted among blacks CKD-EPI (S/P/Bld) [Vol rate/Area] 117 mL/min/1.73 Normal [facility] Work Phone: Comment on above: PATIENT WAS FASTINGP ERFORMED BY: LabCoSelect at BellevilleHobuce0127 [facility] [id number] Information: 175863,U07124 GFR/1.73 sq M predicted among non-blacks CKD-EPI (S/P/Bld) [Vol rate/Area] 101 mL/min/1.73 Normal [facility] Work Phone: Comment on above: PATIENT WAS FASTINGP ERFORMED BY: BAIRON [place] 2123970 [facility] [id number] Information: 251462,L28237 Globulin (S) [Mass/Vol] 3.0 g/dL Normal 1.5-4.5 [facility] Internal Medicine Work Phone: Comment on above: PATIENT WAS FASTINGP ERFORMED BY: [address] [id number] Information: 030506,O34911 Glucose [Mass/Vol] 79 mg/dL Normal 65-[address] [facility] Internal Medicine Work Phone: Comment on above: PATIENT WAS FASTINGP ERFORMED BY: BAIRON [place] 2123970 [facility] [id number] Information: 137804,J46339 Potassium [Moles/Vol] 4.2 mmol/L Normal 3.5-5.2 [facility] Internal Medicine Work Phone: Comment on above: PATIENT WAS FASTINGP ERFORMED BY: BAIRON [place] 2123970 [facility] [id number] Information: 259242,R75423 Protein [Mass/Vol] 7.5 g/dL Normal 6.0-8.[address] [facility] Internal Medicine Work Phone: Comment on above: PATIENT WAS FASTINGP ERFORMED BY: BAIORN [place] 2123970 [facility] [id number] Information: 965970,F53399 Sodium [Moles/Vol] 138 mmol/L Normal 134-[address] [facility] Internal Medicine Work Phone: Comment on above: PATIENT WAS FASTINGP ERFORMED BY: BAIRON [place] 2123970 [facility] [id number] Information: 471277,A09992 Urea nitrogen [Mass/Vol] 9 mg/dL Normal 6-24 [facility] Internal Medicine Work Phone: Comment on above: PATIENT WAS FASTINGP ERFORMED BY: [facility]6370 [facility] [id number] Information: 448593,X77343 Urea nitrogen/Creatinine [Mass ratio] 12 mg/mg Normal 9-23 [facility] Work Phone: Comment on above: PATIENT WAS FASTINGP ERFORMED BY: [address] [id number] Information: 802471,U09061 TSH (00696)Ordered By: Syste m Field Marketing Representative on 06-23-2013 TSH Qn 15.550 {uIU/mL} Abnormal 0.450-4.500 Comprehe nsive Internal Medicine Work Phone: Comment on above: PATIENT WAS FASTINGP ERFORMED BY: [place] 0713870 [facility] [id number] CBC WITH MANUAL DIFF (57896) Ordered By: Media Sales Executive on 04-14-2012 Basophils (Bld) [#/Vol] 0.0 {x10E3/uL} Normal 0.0-0.2 [facility] Work Phone: Comment on above: PATIENT NOT FASTINGP ERFORMED BY: [place] 0713870 [facility] [id number] Information: 694798,T33171 Basophils (Bld) [#/Vol] 0.0 10*3/uL Normal 0.0-0.2 [facility]; [facility] Work Phone: Comment on above: PATIENT NOT FASTINGP ERFORMED BY: [facility]6370 [facility] [id number] Information: 756688,B35522 Basophils/100 WBC (Bld) 0 % Normal 0-3 [facility] Work Phone: Comment on above: PATIENT NOT FASTINGP ERFORMED BY: [place] 0713870 [facility] [id number] Information: 160928,X26025 Eosinophils (Bld) [#/Vol] 0.0 {x10E3/uL} Normal 0.0-0.4 [facility] Work Phone: Comment on above: PATIENT NOT FASTINGP ERFORMED BY: BAIRON Mijareslin6370 [facility] [id number] Information: 760490,G29835 Eosinophils (Bld) [#/Vol] 0.0 10*3/uL Normal 0.0-0.4 [facility]; [facility] Work Phone: Comment on above: PATIENT NOT FASTINGP ERFORMED BY: BAIRON Castrejon[address] [id number] Information: 709618,M31251 Eosinophils/100 WBC (Bld) 1 % Normal 0-7 [facility] Work Phone: Comment on above: PATIENT NOT FASTINGP ERFORMED BY: [address] [id number] Information: 817783,X28840 Erythrocyte distribution width (RBC) [Ratio] 12.9 % Normal 12.3-15.4 [facility] Work Phone: Comment on above: PATIENT NOT FASTINGP ERFORMED BY: BAIRON Callahan[address] [id number] Information: 136547,K95107 Hematocrit (Bld) [Volume fraction] 39.0 % Normal 34.0-46.6 [facility] Work Phone: Comment on above: PATIENT NOT FASTINGP ERFORMED BY: CashPhilip [place] 7444770 [facility] [id number] Information: 613022,S63071 Hemoglobin (Bld) [Mass/Vol] 13.3 g/dL Normal 11.1-15.9 [facility] Work Phone: Comment on above: PATIENT NOT FASTINGP ERFORMED BY: BAIRON [place] 2123970 [facility] [id number] Information: 053018,S84494 Immature granulocytes (Bld) [#/Vol] 0.0 {x10E3/uL} Normal 0.0-0.1 [facility] Work Phone: Comment on above: PATIENT NOT FASTINGP ERFORMED BY: BAIRON Perez6370 [facility] [id number] Information: 079514,O28613 Immature granulocytes (Bld) [#/Vol] 0.0 10*3/uL Normal 0.0-0.1 [facility]; [facility] Work Phone: Comment on above: PATIENT NOT FASTINGP ERFORMED BY: BAIRON Mijareslin6370 [address] [facility] [id number] Information: 330798,A15413 Immature granulocytes/100 WBC (Bld) 0 % Normal 0-2 [facility] Work Phone: Comment on above: PATIENT NOT FASTINGP ERFORMED BY: BAIRON Mijareslin6370 [facility] [id number] Information: 156366,R37504 Lymphocytes (Bld) [#/Vol] 2.4 {x10E3/uL} Normal 0.7-4.5 [facility] Work Phone: Comment on above: PATIENT NOT FASTINGP ERFORMED BY: BAIRON Perez6370 [facility] [id number] Information: 015555,X81330 Lymphocytes (Bld) [#/Vol] 2.4 10*3/uL Normal 0.7-4.5 [facility]; [facility] Work Phone: Comment on above: PATIENT NOT FASTINGP ERFORMED BY: BAIRON Callahan Fiffea2873 [facility] [id number] Information: 938565,Q33382 Lymphocytes/100 WBC (Bld) 36 % Normal 14-46 [facility] Work Phone: Comment on above: PATIENT NOT FASTINGP ERFORMED BY: BAIRON Callahan Fbgrkq8352 [facility] [id number] Information: 317520,I20936 MCH (RBC) [Entitic mass] 30.9 pg Normal 26.6-33.0 [facility] Internal Medicine Work Phone: Comment on above: PATIENT NOT FASTINGP ERFORMED BY: BAIRON Perez6370 [facility] [id number] Information: 847812,[id number] MCHC (RBC) [Mass/Vol] 34.1 g/dL Normal 31.5-35.7 [facility] Internal Medicine Work Phone: Comment on above: PATIENT NOT FASTINGP ERFORMED BY: BAIRON [facility] Sbpndb8473 [facility] [id number] Information: 733863,I99813 MCV (RBC) [Entitic vol] 91 fL Normal 79-97 [facility] Internal Medicine Work Phone: Comment on above: PATIENT NOT FASTINGP ERFORMED BY: BAIRON Callahan[address] [id number] Information: 087309,I54248 Monocytes (Bld) [#/Vol] 0.7 {x10E3/uL} Normal 0.1-1.0 [facility] Internal Medicine Work Phone: Comment on above: PATIENT NOT FASTINGP ERFORMED BY: BAIRON Mijareslin6370 [facility] [id number] Information: 176071,Y59319 Monocytes (Bld) [#/Vol] 0.7 10*3/uL Normal 0.1-1.0 [facility]; [facility] Work Phone: Comment on above: PATIENT NOT FASTINGP ERFORMED BY: BAIRON LabCoSelect at BellevilleGeqfok8551 [facility] [id number] Information: [id number] Monocytes/100 WBC (Bld) 10 % Normal 4-13 [facility] Work Phone: Comment on above: PATIENT NOT FASTINGP ERFORMED BY: BAIRON [facility]6370 [facility] [id number] Information: [id number] Neutrophils (Bld) [#/Vol] 3.5 {x10E3/uL} Normal 1.8-7.8 [facility] Work Phone: Comment on above: PATIENT NOT FASTINGP ERFORMED BY: BAIRON Perez63Yolanda Fordox [facility] [id number] Information: 269289,Z58787 Neutrophils (Bld) [#/Vol] 3.5 10*3/uL Normal 1.8-7.8 [facility]; [facility] Work Phone: Comment on above: PATIENT NOT FASTINGP ERFORMED BY: BAIRON Mijareslin6370 [address] [facility] [id number] Information: 910377,H58486 Neutrophils/100 WBC (Bld) 53 % Normal 40-74 [facility] Work Phone: Comment on above: PATIENT NOT FASTINGP ERFORMED BY: BAIRON Perez6370 [facility]rez[facility] [id number] Information: 946578,U71012 Platelets (Bld) [#/Vol] 313 {x10E3/uL} Normal 140-415 [facility] Work Phone: Comment on above: PATIENT NOT FASTINGP ERFORMED BY: BAIRON Perez6370 [facility] [id number] Information: 360053,L57616 Platelets (Bld) [#/Vol] 313 10*3/uL Normal 140-415 [facility]; [facility] Work Phone: Comment on above: PATIENT NOT FASTINGP ERFORMED BY: BAIRON LabConorman Ecdbzm1889 [facility]rezUniversity [facility] [id number] Information: 697910,K66729 RBC (Bld) [#/Vol] 4.31 {x10E6/uL} Normal 3.77-5.28 [facility] Internal Medicine Work Phone: Comment on above: PATIENT NOT FASTINGP ERFORMED BY: BAIRON [facility] Zvgsmi8203 [address] [facility] [id number] Information: 560954,L12140 RBC (Bld) [#/Vol] 4.31 10*6/uL Normal 3.77-5.28 [facility] Internal Medicine; [facility] Work Phone: Comment on above: PATIENT NOT FASTINGP ERFORMED BY: BAIRON [facility] Fjujgp2733 Ramírez RoadHighlands-Cashiers Hospitalin [place] [id number] Information: 798969,V47541 WBC (Bld) [#/Vol] 6.7 {x10E3/uL} Normal 4.0-10.5 [facility] Internal Medicine Work Phone: Comment on above: PATIENT NOT FASTINGP ERFORMED BY: CB [facility] Kbbexm3065 [address] [facility] [id number] Information: 784175,[id number] WBC (Bld) [#/Vol] 6.7 10*3/uL Normal 4.0-10.[address] [facility] Internal Medicine; [facility] Work Phone: Comment on above: PATIENT NOT FASTINGP ERFORMED BY: CB [facility] Wmqotf6795 [facility] [id number] Information: 070042,O50916 TSH (10916)Ordered By: Darius fierro Field Marketing Representative on 04-14-2012 TSH Qn 0.934 {uIU/mL} Normal 0.450-4.500 [facility] Internal Medicine Work Phone: Comment on above: PATIENT NOT FASTINGP ERFORMED BY: CB [facility] Mzlqyd5845 [address] [facility] [id number] Amylase (47106)Ordered By: S ystem Field Marketing Representative on 01-12-2012 Amylase [Catalytic activity/Vol] 78 U/L Normal 31-124 [facility] Internal Medicine Work Phone: Comment on above: PATIENT NOT FASTINGP ERFORMED BY: CB [facility] Uthenh9070 [address] [facility] [place] [id number] CBC WITH MANUAL DIFF (63825) Ordered By: Media Sales Executive on 01-12-2012 Basophils (Bld) [#/Vol] 0.0 {x10E3/uL} Normal 0.0-0.2 [facility] Work Phone: Comment on above: PATIENT NOT FASTINGP ERFORMED BY: BAIRON Perez6370 [facility] [id number] Information: 711525,[id number] Basophils (Bld) [#/Vol] 0.0 10*3/uL Normal 0.0-0.2 [facility]; [facility] Work Phone: Comment on above: PATIENT NOT FASTINGP ERFORMED BY: BAIRON LabCoJennifer Ville 2037170 [facility] [id number] Information: 704957,K91462 Basophils/100 WBC (Bld) 0 % Normal 0-3 [facility] Work Phone: Comment on above: PATIENT NOT FASTINGP ERFORMED BY: BAIRON Callahan[address] [id number] Information: 654001,N23919 Eosinophils (Bld) [#/Vol] 0.1 {x10E3/uL} Normal 0.0-0.4 [facility] Work Phone: Comment on above: PATIENT NOT FASTINGP ERFORMED BY: BAIRON Callahan Fbquta0757 [facility] [id number] Information: 564736,B35692 Eosinophils (Bld) [#/Vol] 0.1 10*3/uL Normal 0.0-0.4 [facility]; [facility] Work Phone: Comment on above: PATIENT NOT FASTINGP ERFORMED BY: BAIRON [facility]6370 [facility] [id number] Information: 232440,R44893 Eosinophils/100 WBC (Bld) 1 % Normal 0-7 [facility] Work Phone: Comment on above: PATIENT NOT FASTINGP ERFORMED BY: BAIRON LabPhilip [place] 7444770 [facility] [id number] Information: 047651,U69016 Erythrocyte distribution width (RBC) [Ratio] 12.8 % Normal 12.3-15.4 [facility] Work Phone: Comment on above: PATIENT NOT FASTINGP ERFORMED BY: BAIRON Mijareslin6370 [facility] [id number] Information: [id number] Hematocrit (Bld) [Volume fraction] 37.3 % Normal 34.0-46.6 [facility] Work Phone: Comment on above: PATIENT NOT FASTINGP ERFORMED BY: BAIRON Callahan[address] [id number] Information: [id number] Hemoglobin (Bld) [Mass/Vol] 13.1 g/dL Normal 11.1-15.9 [facility] Work Phone: Comment on above: PATIENT NOT FASTINGP ERFORMED BY: BAIRON Callahan[address] [id number] Information: [id number] Immature granulocytes (Bld) [#/Vol] 0.0 {x10E3/uL} Normal 0.0-0.1 [facility] Work Phone: Comment on above: PATIENT NOT FASTINGP ERFORMED BY: BAIRON Mijares[address] [id number] Information: 280321,F20052 Immature granulocytes (Bld) [#/Vol] 0.0 10*3/uL Normal 0.0-0.1 [facility]; [facility] Work Phone: Comment on above: PATIENT NOT FASTINGP ERFORMED BY: BAIRON [place] 2123970 [facility] [id number] Information: [id number] Immature granulocytes/100 WBC (Bld) 0 % Normal 0-2 [facility] Work Phone: Comment on above: PATIENT NOT FASTINGP ERFORMED BY: BAIORN [address] [id number] Information: [id number] Lymphocytes (Bld) [#/Vol] 2.4 {x10E3/uL} Normal 0.7-4.5 [facility] Work Phone: Comment on above: PATIENT NOT FASTINGP ERFORMED BY: BAIRON Perez6370 [facility] [id number] Information: 573270,C02177 Lymphocytes (Bld) [#/Vol] 2.4 10*3/uL Normal 0.7-4.5 [facility]; [facility] Work Phone: Comment on above: PATIENT NOT FASTINGP ERFORMED BY: BAIRON [address] [id number] Information: 082782,N54164 Lymphocytes/100 WBC (Bld) 31 % Normal 14-46 [facility] Work Phone: Comment on above: PATIENT NOT FASTINGP ERFORMED BY: BAIRON Castrejon[address] [id number] Information: 953754,J99441 MCH (RBC) [Entitic mass] 31.7 pg Normal 26.6-33.0 [facility] Internal Medicine Work Phone: Comment on above: PATIENT NOT FASTINGP ERFORMED BY: BAIRON Callahan[address] [id number] Information: 532249,I81177 MCHC (RBC) [Mass/Vol] 35.1 g/dL Normal 31.5-35.7 [facility] Internal Medicine Work Phone: Comment on above: PATIENT NOT FASTINGP ERFORMED BY: BAIRON [place] 2123970 [facility] [id number] Information: 235727,Y36786 MCV (RBC) [Entitic vol] 90 fL Normal 79-97 [facility] Internal Medicine Work Phone: Comment on above: PATIENT NOT FASTINGP ERFORMED BY: [address] [id number] Information: 857825,N99584 Monocytes (Bld) [#/Vol] 0.7 {x10E3/uL} Normal 0.1-1.0 [facility] Work Phone: Comment on above: PATIENT NOT FASTINGP ERFORMED BY: BAIRON Perez6370 [address] [facility] [place] [id number] Information: [id number] Monocytes (Bld) [#/Vol] 0.7 10*3/uL Normal 0.1-1.0 [facility]; [facility] Work Phone: Comment on above: PATIENT NOT FASTINGP ERFORMED BY: CB [facility] Nowofv2773 [address] [facility] [id number] Information: [id number] Monocytes/100 WBC (Bld) 9 % Normal 4-13 [facility] Work Phone: Comment on above: PATIENT NOT FASTINGP ERFORMED BY: BAIRON [facility] Rxrhnn5340 [address]rez [facility] [id number] Information: [id number] Neutrophils (Bld) [#/Vol] 4.7 {x10E3/uL} Normal 1.8-7.8 [facility] Work Phone: Comment on above: PATIENT NOT FASTINGP ERFORMED BY: BAIRON CastrejonConorman MijaresYhwdep7502 [address]rez [facility] [id number] Information: [id number] Neutrophils (Bld) [#/Vol] 4.7 10*3/uL Normal 1.8-7.8 [facility]; [facility] Work Phone: Comment on above: PATIENT NOT FASTINGP ERFORMED BY: CB [facility] Qfrflq0604 [address]rez [facility] [id number] Information: [id number] Neutrophils/100 WBC (Bld) 59 % Normal 40-74 [facility] Work Phone: Comment on above: PATIENT NOT FASTINGP ERFORMED BY: CB [facility] Qjoekd8320 [address]rez [facility] [id number] Information: [id number] Platelets (Bld) [#/Vol] 303 {x10E3/uL} Normal 140-415 [facility] Work Phone: Comment on above: PATIENT NOT FASTINGP ERFORMED BY: BAIRON Perez63Yolanda FordUniversity Health Lakewood [facility] [id number] Information: [id number] Platelets (Bld) [#/Vol] 303 10*3/uL Normal 140-415 [facility]; [facility] Work Phone: Comment on above: PATIENT NOT FASTINGP ERFORMED BY: BAIRON Mijareslin6370 [facility] [id number] Information: [id number] RBC (Bld) [#/Vol] 4.13 {x10E6/uL} Normal 3.77-5.28 [facility] Internal Medicine Work Phone: Comment on above: PATIENT NOT FASTINGP ERFORMED BY: BAIRON Perez6370 [facility] [id number] Information: [id number] RBC (Bld) [#/Vol] 4.13 10*6/uL Normal 3.77-5.28 [facility] Internal Medicine; [facility] Work Phone: Comment on above: PATIENT NOT FASTINGP ERFORMED BY: BAIRON Mijareslin6370 [facility] [id number] Information: [id number] WBC (Bld) [#/Vol] 7.9 {x10E3/uL} Normal 4.0-10.5 [facility] Internal Medicine Work Phone: Comment on above: PATIENT NOT FASTINGP ERFORMED BY: BAIRON Mijareslin6370 [facility] [id number] Information: [id number] WBC (Bld) [#/Vol] 7.9 10*3/uL Normal 4.0-10.5 [facility]; [facility] Work Phone: Comment on above: PATIENT NOT FASTINGP ERFORMED BY: CB [facility] Qyewsj0250 [address]írez RoadDublin [place] [id number] Information: [id number] Lipase ([id number])Ordered By: Sy stem Field Marketing Representative on 01-12-2012 Lipase [Catalytic activity/Vol] 29 U/L Normal 0-59 [facility] Work Phone: Comment on above: PATIENT NOT FASTINGP ERFORMED BY: CB [facility] Eptthl5118 Ramírez RoadDublin [place] [id number] METABOLIC PANEL, COMPREHENSI VE ([id number])Ordered By: Media Sales Executive on 01-12-2012 Albumin [Mass/Vol] 4.5 g/dL Normal 3.5-5.[address] [facility] Internal Medicine Work Phone: Comment on above: PATIENT NOT FASTINGP ERFORMED BY: CB [facility] Goyypp2834 [address]írez RoadDublin [place] [id number] Albumin/Globulin [Mass ratio] 1.8 {ratio} Normal 1.1-2.5 [facility] Work Phone: Comment on above: PATIENT NOT FASTINGP ERFORMED BY: CB [facility] Smxava4898 Ramírez RoadDublin [place] [id number] ALP [Catalytic activity/Vol] 61 [iU]/L Normal 25-150 [facility] Work Phone: Comment on above: PATIENT NOT FASTINGP ERFORMED BY: CB [facility] Rewfqw3224 Ramírez RoadDublin [place] [id number] ALP [Catalytic activity/Vol] 61 U/L Normal 25-150 [facility]; [facility] Work Phone: Comment on above: PATIENT NOT FASTINGP ERFORMED BY: CB [facility] Riuaow1293 [address] RoadDublin [place] [id number] ALT [Catalytic activity/Vol] 15 [iU]/L Normal 0-40 [facility] Work Phone: Comment on above: PATIENT NOT FASTINGP ERFORMED BY: CB [facility] Cqcceb1178 [address] RoadDublin [place] [id number] ALT [Catalytic activity/Vol] 15 U/L Normal 0-40 [facility]; [facility] Work Phone: Comment on above: PATIENT NOT FASTINGP ERFORMED BY: CB [facility] Ravmcg2145 [address] RoadDublin [place] [id number] AST [Catalytic activity/Vol] 18 [iU]/L Normal 0-40 [facility] Work Phone: Comment on above: PATIENT NOT FASTINGP ERFORMED BY: CB [facility] Suglyi0387 [address] RoadDublin [place] [id number] AST [Catalytic activity/Vol] 18 U/L Normal 0-40 [facility]; [facility] Work Phone: Comment on above: PATIENT NOT FASTINGP ERFORMED BY: CB [facility] Eethoi8304 [address] RoadDublin [place] [id number] Bilirubin [Mass/Vol] 0.3 mg/dL Normal 0.0-1.2 Comp rehensive Internal Medicine Work Phone: Comment on above: PATIENT NOT FASTINGP ERFORMED BY: CB [facility] Dtrupt3678 [address] RoadDublin [place] [id number] Calcium [Mass/Vol] 9.4 mg/dL Normal 8.7-10.[address] [facility] Internal Medicine Work Phone: Comment on above: PATIENT NOT FASTINGP ERFORMED BY: CB [facility] Wcuvka5373 [address] RoadDublin [place] [id number] Chloride [Moles/Vol] 100 mmol/L Normal 97-108 Comp [facility] Work Phone: Comment on above: PATIENT NOT FASTINGP ERFORMED BY: CB [facility] Pbqgus6622 [address] RoadDublin [place] [id number] CO2 [Moles/Vol] 21 mmol/L Normal 20-32 Comprehen [facility] Internal Medicine Work Phone: Comment on above: PATIENT NOT FASTINGP ERFORMED BY: CB [facility] Fwissk4635 [address] RoadDublin [place] [id number] Creatinine [Mass/Vol] 0.65 mg/dL Normal 0.57-1.00 [facility] Work Phone: Comment on above: PATIENT NOT FASTINGP ERFORMED BY: CB [facility] Fqwvfe0049 [address] RoadDublin [place] [id number] GFR/1.73 sq M predicted among blacks CKD-EPI (S/P/Bld) [Vol rate/Area] 128 mL/min/1.73 Normal [facility] Internal Medicine Work Phone: Comment on above: PATIENT NOT FASTINGP ERFORMED BY: CB [facility] Pxccxb4320 [address] RoadDublin [place] [id number] GFR/1.73 sq M predicted among non-blacks CKD-EPI (S/P/Bld) [Vol rate/Area] 111 mL/min/1.73 Normal [facility] Internal Medicine Work Phone: Comment on above: PATIENT NOT FASTINGP ERFORMED BY: CB [facility] Comemq8726 [address] RoadDublin [place] [id number] Globulin (S) [Mass/Vol] 2.5 g/dL Normal 1.5-4.5 [facility] Internal Medicine Work Phone: Comment on above: PATIENT NOT FASTINGP ERFORMED BY: CB [facility] Vuijis4502 [address] RoadDublin [place] [id number] Glucose [Mass/Vol] 74 mg/dL Normal 65-[address] [facility] Internal Medicine Work Phone: Comment on above: PATIENT NOT FASTINGP ERFORMED BY: CB [facility] Jqrugk9498 [address] RoadDublin [place] [id number] Potassium [Moles/Vol] 4.3 mmol/L Normal 3.5-5.2 [facility] Internal Medicine Work Phone: Comment on above: PATIENT NOT FASTINGP ERFORMED BY: CB [facility] Akgdvr3019 [address] RoadDublin [place] [id number] Protein [Mass/Vol] 7.0 g/dL Normal 6.0-8.[address] [facility] Internal Medicine Work Phone: Comment on above: PATIENT NOT FASTINGP ERFORMED BY: CB [facility] Edzkvj4297 [address] RoadDublin [place] [id number] Sodium [Moles/Vol] 137 mmol/L Normal 134-144 Compre hensive Internal Medicine Work Phone: Comment on above: PATIENT NOT FASTINGP ERFORMED BY: BAIRON [facility] Caprkh7830 [address] [facility] [id number] Urea nitrogen [Mass/Vol] 13 mg/dL Normal 6-24 [facility] Work Phone: Comment on above: PATIENT NOT FASTINGP ERFORMED BY: BAIRON [facility] Gwgfit3271 [facility] [id number] Urea nitrogen/Creatinine [Mass ratio] 20 mg/mg Normal 9-23 [facility] Work Phone: Comment on above: PATIENT NOT FASTINGP ERFORMED BY: BAIRON [facility] Pmyyfm8592 [facility] [id number] TSH ([id number])Ordered By: Darius fierro Field Marketing Representative on 01-12-2012 TSH Qn 0.102 {uIU/mL} Abnormal 0.450-4.500 Comprehen sive Internal Medicine Work Phone: Comment on above: PATIENT NOT FASTINGP ERFORMED BY: BAIRON [facility] Pntryz0800 [facility] [id number] Urinalysis, Office ([id number])on 02-28-2011 Bilirubin Ql (U) Negative Normal Comprehe nsive Internal Medicine Work Phone: Bilirubin Ql (U) Negative Normal Comprehe nsive [facility]; [facility] Work Phone: Glucose Test strip (U) [Mass/Vol] Negative Normal [facility] Work Phone: Glucose Test strip (U) [Mass/Vol] Negative Normal [facility]; [facility] Work Phone: Hemoglobin Ql (U) Negative Normal Compreh ensive [facility] Work Phone: Hemoglobin Ql (U) Negative Normal Compreh ensive [facility]; [facility] Work Phone: Ketones Ql (U) Negative Normal [facility] Work Phone: Ketones Ql (U) Negative Normal [facility]; [facility] Work Phone: Leukocyte esterase Test strip Ql (U) Negative Normal [facility] Work Phone: Leukocyte esterase Test strip Ql (U) Negative Normal [facility]; [facility] Work Phone: Nitrite Ql (U) Negative Normal [facility] Work Phone: Nitrite Ql (U) Negative Normal [facility]; [facility] Work Phone: pH (U) 6.0 [pH] Normal [facility] Work Phone: Protein Ql (U) Negative Normal [facility] Work Phone: Protein Ql (U) Negative Normal [facility]; [facility] Work Phone: Specific gravity (U) [Rel density] 1.020 1 Normal [facility] Work Phone: Urobilinogen (24H U) [Mass/Time] Normal Normal [facility] Work Phone: Rapid Flu ([phone] x 2)Ordered By: Jewell Roa on 06-13-2010 FLUAV Ag IA Ql (Throat) Negative Normal [facility] Work Phone: FLUAV Ag IA Ql (Throat) Negative Normal [facility]; [facility] Work Phone: Vital Signs Date Time Vital Sign Value Performing Clinician Facility 03-23-2025 10:00-0400 Body height 162.[address] Oleksandr Holbrook MD Work Phone: [facility] 03-23-2025 10:00-0400 Body mass index (BMI) [Ratio] 30.4 kg/m2 Dr. Oleksandr Holbrook MD Work Phone: [facility] 03-23-2025 10:00-0400 Body weight 80.[address] Oleksandr Holbrook MD Work Phone: [facility] 03-08-2025 14:15-0400 Body temperature 98.4 [degF] Dr. Oleksandr Holbrook MD Work Phone: [facility] 03-08-2025 14:15-0400 Diastolic blood pressure 54 mm[Hg] Dr. Oleksandr Holbrook MD Work Phone: [facility] 03-08-2025 14:15-0400 Heart rate 95 /min Dr. Oleksandr Holbrook MD Work Phone: [facility] 03-08-2025 14:15-0400 Respiratory rate 16 /min Dr. Oleksandr Holbrook MD Work Phone: [facility] 03-08-2025 14:15-0400 SaO2% (BldA) [Mass fraction] 94 % Dr. Oleksandr Holbrook MD Work Phone: [facility] 03-08-2025 14:15-0400 Systolic blood pressure 103 mm[Hg] Dr. Oleksandr Holbrook MD Work Phone: [facility] 03-08-2025 09:48-0400 Body temperature 97.7 [degF] Dr. Oleksandr Holbrook MD Work Phone: [facility] 03-08-2025 09:48-0400 Diastolic blood pressure 76 mm[Hg] Dr. Oleksandr Holbrook MD Work Phone: [facility] 03-08-2025 09:48-0400 Heart rate 90 /min Dr. Oleksandr Holbrook MD Work Phone: [facility] 03-08-2025 09:48-0400 Respiratory rate 16 /min Dr. Oleksandr Holbrook MD Work Phone: [facility] 03-08-2025 09:48-0400 SaO2% (BldA) [Mass fraction] 94 % Dr. Oleksandr Holbrook MD Work Phone: [facility] 03-08-2025 09:48-0400 Systolic blood pressure 111 mm[Hg] Dr. Oleksandr Holbrook MD Work Phone: [facility] 03-08-2025 05:19-0400 Inhaled oxygen flow rate 2 L/min Dr. Oleksandr Holbrook MD Work Phone: [facility] 03-07-2025 17:39-0400 Body height 162.[address] Oleksandr Holbrook MD Work Phone: [facility] 03-07-2025 17:39-0400 Body mass index (BMI) [Ratio] 32.2 kg/m2 Dr. Oleksandr Holbrook MD Work Phone: [facility] 03-07-2025 17:39-0400 Body weight 85.[address] Oleksandr Holbrook MD Work Phone: [facility] 02-21-2025 08:04-0400 Body height 162.[address] Oleksandr Holbrook MD Work Phone: [facility] 02-21-2025 08:04-0400 Body mass index (BMI) [Ratio] 31.6 kg/m2 Dr. Oleksandr Holbrook MD Work Phone: [facility] 02-21-2025 08:04-0400 Body weight 83.[address] Oleksandr Holbrook MD Work Phone: [facility] 10-13-2024 08:05-0400 Body height 162.[address] Oleksandr Holbrook MD Work Phone: [facility] 10-13-2024 08:05-0400 Body mass index (BMI) [Ratio] 31.2 kg/m2 Dr. Oleksandr Holbrook MD Work Phone: [facility] 10-13-2024 08:05-0400 Body weight 82.[address] Oleksandr Holbrook MD Work Phone: [facility] 11-16-2023 05:18-0400 Body temperature 98.1 [degF] Dr. Oleksandr Holbrook Work Phone: [facility] 11-16-2023 05:18-0400 Diastolic blood pressure 74 mm[Hg] Dr. Oleksandr Holbrook Work Phone: [facility] 11-16-2023 05:18-0400 Heart rate 74 /min Dr. Oleksandr Holbrook Work Phone: [facility] 11-16-2023 05:18-0400 Respiratory rate 16 /min Dr. Oleksandr Holbrook Work Phone: [facility] 11-16-2023 05:18-0400 SaO2% (BldA) [Mass fraction] 99 % Dr. Oleksandr Holbrook Work Phone: [facility] 11-16-2023 05:18-0400 Systolic blood pressure 114 mm[Hg] Dr. Oleksandr Holbrook Work Phone: [facility] 11-16-2023 02:03-0400 Body height 162.[address] Oleksandr Holbrook Work Phone: [facility] 11-16-2023 02:03-0400 Body mass index (BMI) [Ratio] 33.7 kg/m2 Dr. Oleksandr Holbrook Work Phone: [facility] 11-16-2023 02:03-0400 Body weight 89.[address] Oleksandr Holbrook Work Phone: [facility] 08-24-2023 09:05-0500 Body height 162.[address] Oleksandr Holbrook Work Phone: [facility] 08-24-2023 09:05-0500 Body mass index (BMI) [Ratio] 34.1 kg/m2 Dr. Oleksandr Holbrook Work Phone: [facility] 08-24-2023 09:05-0500 Body temperature 97.3 [degF] Dr. Oleksandr Holbrook Work Phone: [facility] 08-24-2023 09:05-0500 Body weight 90.[address] Oleksandr Holbrook Work Phone: [facility] 08-24-2023 09:05-0500 Diastolic blood pressure 70 mm[Hg] Dr. Oleksandr Holbrook Work Phone: [facility] 08-24-2023 09:05-0500 Heart rate 77 /min Dr. Oleksandr Holbrook Work Phone: [facility] 08-24-2023 09:05-0500 Respiratory rate 16 /min Dr. Oleksandr Holbrook Work Phone: [facility] 08-24-2023 09:05-0500 SaO2% (BldA) [Mass fraction] 98 % Dr. Oleksandr Holbrook Work Phone: [facility] 08-24-2023 09:05-0500 Systolic blood pressure 118 mm[Hg] Dr. Oleksandr Holbrook Work Phone: [facility] 08-17-2023 09:00-0500 Body weight 89.[address] Oleksandr Holbrook Work Phone: [facility] 08-06-2023 15:00-0500 Body weight 90.[address] Oleksandr Holbrook Work Phone: [facility] 05-20-2023 10:24-0500 Body height 162.[address] Oleksandr Holbrook Work Phone: [facility] 05-20-2023 10:24-0500 Body mass index (BMI) [Ratio] 33.5 kg/m2 Dr. Oleksandr Holbrook Work Phone: [facility] 05-20-2023 10:24-0500 Body temperature 99.2 [degF] Dr. Oleksandr Holbrook Work Phone: [facility] 05-20-2023 10:24-0500 Body weight 88.[address] Oleksandr Holbrook Work Phone: [facility] 05-20-2023 10:24-0500 Diastolic blood pressure 84 mm[Hg] Dr. Oleksandr Holbrook Work Phone: [facility] 05-20-2023 10:24-0500 Heart rate 78 /min Dr. Oleksandr Holbrook Work Phone: [facility] 05-20-2023 10:24-0500 Respiratory rate 18 /min Dr. Oleksandr Holbrook Work Phone: [facility] 05-20-2023 10:24-0500 SaO2% (BldA) [Mass fraction] 97 % Dr. Oleksandr Holbrook Work Phone: [facility] 05-20-2023 10:24-0500 Systolic blood pressure 132 mm[Hg] Dr. Oleksandr Holbrook Work Phone: [facility] 05-08-2023 08:30-0400 Body mass index (BMI) [Ratio] 32.8 kg/m2 Dr. Oleksandr Holbrook Work Phone: [facility] 05-08-2023 08:30-0400 Body temperature 97.4 [degF] Dr. Oleksandr Holbrook Work Phone: [facility] 05-08-2023 08:30-0400 Body weight 86.[address] Oleksandr Holbrook Work Phone: [facility] 05-08-2023 08:30-0400 Diastolic blood pressure 69 mm[Hg] Dr. Oleksandr Holbrook Work Phone: [facility] 05-08-2023 08:30-0400 Heart rate 73 /min Dr. Oleksandr Holbrook Work Phone: [facility] 05-08-2023 08:30-0400 Respiratory rate 20 /min Dr. Oleksandr Holbrook Work Phone: [facility] 05-08-2023 08:30-0400 SaO2% (BldA) [Mass fraction] 95 % Dr. Oleksandr Holbrook Work Phone: [facility] 05-08-2023 08:30-0400 Systolic blood pressure 96 mm[Hg] Dr. Oleksandr Holbrook Work Phone: [facility] 09-01-2022 08:09-0500 Body height 162.[address] Oleksandr Holbrook Work Phone: [facility] 09-01-2022 08:09-0500 Body mass index (BMI) [Ratio] 30.8 kg/m2 Dr. Oleksandr Holbrook Work Phone: [facility] 09-01-2022 08:09-0500 Body temperature 96.5 [degF] Dr. Oleksandr Holbrook Work Phone: [facility] 09-01-2022 08:09-0500 Body weight 81.[address] Oleksandr Holbrook Work Phone: [facility] 09-01-2022 08:09-0500 Diastolic blood pressure 88 mm[Hg] Dr. Oleksandr Holbrook Work Phone: [facility] 09-01-2022 08:09-0500 Respiratory rate 18 /min Dr. Oleksandr Holbrook Work Phone: [facility] 09-01-2022 08:09-0500 SaO2% (BldA) [Mass fraction] 96 % Dr. Oleksandr Holbrook Work Phone: [facility] 09-01-2022 08:09-0500 Systolic blood pressure 136 mm[Hg] Dr. Oleksandr Holbrook Work Phone: [facility] 02-21-2022 09:58-0400 Body height 162.[address] Oleksandr Holbrook Work Phone: [facility] Work Phone: 02-21-2022 09:58-0400 Body mass index (BMI) [Ratio] 30.2 kg/m2 Dr. Oleksandr Holbrook Work Phone: [facility] Work Phone: 02-21-2022 09:58-0400 Body temperature 97.3 [degF] Dr. Oleksandr Holbrook Work Phone: [facility] Work Phone: 02-21-2022 09:58-0400 Body weight 79.[address] Oleksandr Holbrook Work Phone: [facility] Work Phone: 02-21-2022 09:58-0400 Diastolic blood pressure 62 mm[Hg] Dr. Oleksandr Holbrook Work Phone: [facility] Work Phone: 02-21-2022 09:58-0400 Heart rate 80 /min Dr. Oleksandr Holbrook Work Phone: [facility] Work Phone: 02-21-2022 09:58-0400 Respiratory rate 18 /min Dr. Oleksandr Holbrook Work Phone: [facility] Work Phone: 02-21-2022 09:58-0400 SaO2% (BldA) [Mass fraction] 97 % Dr. Oleksandr Holbrook Work Phone: [facility] Work Phone: 02-21-2022 09:58-0400 Systolic blood pressure 90 mm[Hg] Dr. Oleksandr Holbrook Work Phone: [facility] Work Phone: 01-16-2022 13:06-0400 Body mass index (BMI) [Ratio] 30.9 kg/m2 Dr. Oleksandr Holbrook Work Phone: [facility] Work Phone: 01-16-2022 13:06-0400 Body temperature 98.8 [degF] Dr. Oleksandr Holbrook Work Phone: [facility] Work Phone: 01-16-2022 13:06-0400 Body weight 81.[address] Oleksandr Holbrook Work Phone: [facility] Work Phone: 01-16-2022 13:06-0400 Diastolic blood pressure 80 mm[Hg] Dr. Oleksandr Holbrook Work Phone: [facility] Work Phone: 01-16-2022 13:06-0400 Heart rate 67 /min Dr. Oleksandr Holbrook Work Phone: [facility] Work Phone: 01-16-2022 13:06-0400 Respiratory rate 16 /min Dr. Oleksandr Holbrook Work Phone: [facility] Work Phone: 01-16-2022 13:06-0400 SaO2% (BldA) [Mass fraction] 100 % Dr. Oleksandr Holbrook Work Phone: [facility] Work Phone: 01-16-2022 13:06-0400 Systolic blood pressure 108 mm[Hg] Dr. Oleksandr Holbrook Work Phone: [facility] Work Phone: 12-17-2021 13:16-0400 Body height 162.[address] Oleksandr Holbrook Work Phone: [facility] Work Phone: 12-17-2021 13:16-0400 Body mass index (BMI) [Ratio] 30.7 kg/m2 Dr. Oleksandr Holbrook Work Phone: [facility] Work Phone: 12-17-2021 13:16-0400 Body temperature 97.9 [degF] Dr. Oleksandr Holbrook Work Phone: [facility] Work Phone: 12-17-2021 13:16-0400 Body weight 81.[address] Oleksandr Holbrook Work Phone: [facility] Work Phone: 12-17-2021 13:16-0400 Diastolic blood pressure 74 mm[Hg] Dr. Oleksandr Holbrook Work Phone: [facility] Work Phone: 12-17-2021 13:16-0400 Heart rate 84 /min Dr. Oleksandr Holbrook Work Phone: [facility] Work Phone: 12-17-2021 13:16-0400 Respiratory rate 14 /min Dr. Oleksandr Holbrook Work Phone: [facility] Work Phone: 12-17-2021 13:16-0400 SaO2% (BldA) [Mass fraction] 99 % Dr. Oleksandr Holbrook Work Phone: [facility] Work Phone: 12-17-2021 13:16-0400 Systolic blood pressure 126 mm[Hg] Dr. Oleksandr Holbrook Work Phone: [facility] Work Phone: 08-30-2021 09:17-0500 Body mass index (BMI) [Ratio] 30.7 kg/m2 Dr. Oleksandr Holbrook Work Phone: [facility] Work Phone: 08-30-2021 09:17-0500 Body temperature 98.5 [degF] Dr. Oleksandr Holbrook Work Phone: [facility] Work Phone: 08-30-2021 09:17-0500 Body weight 81.[address] Oleksandr Holbrook Work Phone: [facility] Work Phone: 08-30-2021 09:17-0500 Diastolic blood pressure 78 mm[Hg] Dr. Oleksandr Holbrook Work Phone: [facility] Work Phone: 08-30-2021 09:17-0500 Heart rate 73 /min Dr. Oleksandr Holbrook Work Phone: [facility] Work Phone: 08-30-2021 09:17-0500 SaO2% (BldA) [Mass fraction] 97 % Dr. Oleksandr Holbrook Work Phone: [facility] Work Phone: 08-30-2021 09:17-0500 Systolic blood pressure 120 mm[Hg] Dr. Oleksandr Holbrook Work Phone: [facility] Work Phone: 08-30-2021 08:17-0500 Body height 162.[address] Gloria James Work Phone: [facility] Work Phone: 08-30-2021 08:17-0500 Body mass index (BMI) [Ratio] 30.7 kg/m2 Dr. Gloria James Work Phone: [facility] Work Phone: 08-30-2021 08:17-0500 Body temperature 98.5 [degF] Dr. Gloria James Work Phone: [facility] Work Phone: 08-30-2021 08:17-0500 Body weight 81.[address] Gloria James Work Phone: [facility] Work Phone: 08-30-2021 08:17-0500 Diastolic blood pressure 78 mm[Hg] Dr. Gloria James Work Phone: [facility] Work Phone: 08-30-2021 08:17-0500 Heart rate 73 /min Dr. Gloria James Work Phone: [facility] Work Phone: 08-30-2021 08:17-0500 SaO2% (BldA) [Mass fraction] 97 % Dr. Gloria James Work Phone: [facility] Work Phone: 08-30-2021 08:17-0500 Systolic blood pressure 120 mm[Hg] Dr. Gloria James Work Phone: [facility] Work Phone: 07-02-2021 12:03-0500 Body mass index (BMI) [Ratio] 30.2 kg/m2 Dr. Gloria James Work Phone: [facility] Work Phone: 07-02-2021 12:03-0500 Body temperature 97.4 [degF] Dr. Gloria James Work Phone: [facility] Work Phone: 07-02-2021 12:03-0500 Body weight 79.[address] Gloria James Work Phone: [facility] Work Phone: 07-02-2021 12:03-0500 Diastolic blood pressure 86 mm[Hg] Dr. Gloria James Work Phone: [facility] Work Phone: 07-02-2021 12:03-0500 Heart rate 79 /min Dr. Gloria James Work Phone: [facility] Work Phone: 07-02-2021 12:03-0500 Respiratory rate 16 /min Dr. Gloria James Work Phone: [facility] Work Phone: 07-02-2021 12:03-0500 SaO2% (BldA) [Mass fraction] 98 % Dr. Gloria James Work Phone: [facility] Work Phone: 07-02-2021 12:03-0500 Systolic blood pressure 124 mm[Hg] Dr. Gloria James Work Phone: [facility] Work Phone: 05-06-2021 10:41-0400 Body height 161.29 cm Elisabet Slarb [employer] [facility] Work Phone: Comment on above: pt did not report 05-06-2021 10:41-0400 Body mass index (BMI) [Ratio] 32.17 kg/m2 Elisabet Slarb [employer] TECH[employer] [facility] Work Phone: Comment on above: pt did not report 05-06-2021 10:41-0400 Body surface area Derived from formula 1.88 m2 Elisabet Slarb [employer] TECH[employer] [facility] Work Phone: Comment on above: pt did not report 05-06-2021 10:41-0400 Body weight 83.69 kg Elisabet Slarb [employer] TECH[employer] [facility] Work Phone: Comment on above: pt did not report 03-22-2021 11:34-0400 Body height 161.29 cm Josseline Gravius [facility]; [facility] Work Phone: 03-22-2021 11:34-0400 Body mass index (BMI) [Ratio] 32.17 kg/m2 Josseline Gravius [facility] Work Phone: 03-22-2021 11:34-0400 Body surface area Derived from formula 1.88 m2 Josseline Gravius [facility] Work Phone: 03-22-2021 11:34-0400 Body weight 83.69 kg Josseline Brown [facility] Work Phone: 03-22-2021 11:34-0400 Diastolic blood pressure 70 mm[Hg] Josseline Brown CMA [facility]; [facility] Work Phone: Comment on above: Patient Position: Sitting; Cuff Location : Left Arm; Cuff Size: Standard 03-22-2021 11:34-0400 Systolic blood pressure 118 mm[Hg] Josseline Brown [facility] Work Phone: Comment on above: Patient Position: Sitting; Cuff Location : Left Arm; Cuff Size: Standard 08-02-2020 08:22-0500 BMI (Body Mass Index) 30.08 kg/m2 [facility]; [facility] Work Phone: 08-02-2020 08:22-0500 Body weight 78.25 kg [facility] Work Phone: 08-02-2020 08:22-0500 BSA (Body Surface Area) 1.83 m2 [facility] Work Phone: 08-02-2020 08:22-0500 Height 161.29 cm [facility] Work Phone: 07-17-2020 08:14-0500 BMI (Body Mass Index) 30.08 kg/m2 [facility]; [facility] Work Phone: 07-17-2020 08:14-0500 Body weight 78.25 kg [facility] Work Phone: 07-17-2020 08:14-0500 BSA (Body Surface Area) 1.83 m2 [facility] Work Phone: 07-17-2020 08:14-0500 Height 161.29 cm [employer] [facility] Work Phone: 09-30-2019 09:36-0400 BMI (Body Mass Index) 30.08 kg/m2 Jewell Roa RN [facility] Work Phone: Comment on above: Vital signs not obtained d/t call or vir tual visit 09-30-2019 09:36-0400 Body weight 78.25 kg Jewell Roa RN [facility] Work Phone: Comment on above: Vital signs not obtained d/t call or vir tual visit 09-30-2019 09:36-0400 BSA (Body Surface Area) 1.83 m2 Jewell Roa RN [facility] Work Phone: Comment on above: Vital signs not obtained d/t call or vir tual visit 09-30-2019 09:36-0400 Height 161.29 cm Jewell Roa RN [facility] Work Phone: Comment on above: Vital signs not obtained d/t call or vir tual visit 06-27-2019 11:17-0500 BMI (Body Mass Index) 30.08 kg/m2 Josseline Gravius [facility] Work Phone: Comment on above: pt wearing acrylic nails 06-27-2019 11:17-0500 Body Temperature 97 [degF] Josseline Gravius [facility] Work Phone: Comment on above: Method: Temporal pt wearing acrylic n ails 06-27-2019 11:17-0500 Body weight 78.25 kg Josseline Gravius [facility] Work Phone: Comment on above: pt wearing acrylic nails 06-27-2019 11:17-0500 BSA (Body Surface Area) 1.83 m2 Josseline Gravius [facility] Work Phone: Comment on above: pt wearing acrylic nails 06-27-2019 11:17-0500 Height 161.29 cm Josseline Gravius [facility] Work Phone: Comment on above: pt wearing acrylic nails 06-27-2019 11:17-0500 Pulse (Heart Rate) 71 /min Josseline Gravius [facility] Work Phone: Comment on above: Pattern: Regular pt wearing acrylic n ails 06-27-2019 11:17-0500 Pulse Oximetry 95 % Gloria Jacob [facility] Work Phone: Comment on above: Room air pt wearing acrylic n ails 06-27-2019 11:17-0500 Respiratory Rate 16 /min Josseline Brown [facility] Work Phone: Comment on above: Pattern: Unlabored pt wearing acrylic n ails 06-27-2019 11:17-0500 SaO2% (BldA) [Mass fraction] 95 % Josseline Brown [facility]; [facility] Work Phone: Comment on above: Room air pt wearing acrylic n ails 06-10-2019 13:01-0500 BMI (Body Mass Index) 30.08 kg/m2 Jewell Roa RN [facility] Work Phone: 06-10-2019 13:01-0500 Body weight 78.25 kg Jewell Roa RN [facility] Work Phone: 06-10-2019 13:01-0500 BP Diastolic 70 mm[Hg] Jewell Roa RN [facility] Work Phone: Comment on above: Patient Position: Sitting; Cuff Location : Left Arm; Cuff Size: Large 06-10-2019 13:01-0500 BP Systolic 128 mm[Hg] Jewell Roa RN [facility] Work Phone: Comment on above: Patient Position: Sitting; Cuff Location : Left Arm; Cuff Size: Large 06-10-2019 13:01-0500 BSA (Body Surface Area) 1.83 m2 Jewell Roa RN [facility] Work Phone: 06-10-2019 13:01-0500 Height 161.29 cm Jewell Roa RN [facility] Work Phone: 06-10-2019 13:01-0500 Pulse (Heart Rate) 103 /min Jewell Roa RN [facility] Work Phone: Comment on above: Pattern: Regular 06-10-2019 13:01-0500 Pulse Oximetry 99 % Gloria James [facility] Work Phone: Comment on above: Room air 06-10-2019 13:01-0500 Respiratory Rate 18 /min Jewell Roa RN [facility] Work Phone: Comment on above: Pattern: Unlabored 06-10-2019 13:01-0500 SaO2% (BldA) [Mass fraction] 99 % Jewell Roa RN [facility]; [facility] Work Phone: Comment on above: Room air 05-13-2019 10:11-0500 BMI (Body Mass Index) 29.55 kg/m2 Kady Thrasher LPN [facility] Work Phone: 05-13-2019 10:11-0500 Body Temperature 97 [degF] Kady Thrasher [employer] [facility] Work Phone: 05-13-2019 10:11-0500 Body weight 76.89 kg [place]adyhawk Thrasher [employer] TECHNICIAN [facility] Work Phone: 05-13-2019 10:11-0500 BP Diastolic 78 mm[Hg] Kadyhawk Thrasher [employer] TECHNICIAN [facility] Work Phone: Comment on above: Patient Position: Sitting; Cuff Location : Left Arm; Cuff Size: Standard 05-13-2019 10:11-0500 BP Systolic 110 mm[Hg] Kady Thrasher LPN [facility] Work Phone: Comment on above: Patient Position: Sitting; Cuff Location : Left Arm; Cuff Size: Standard 05-13-2019 10:11-0500 BSA (Body Surface Area) 1.81 m2 Kady Thrasher [employer] TECHNICIAN [facility] Work Phone: 05-13-2019 10:11-0500 Height 161.29 cm [place]adyhaw[place] Thrasher [employer] TECHNICIAN [facility] Work Phone: 05-13-2019 10:11-0500 Pulse (Heart Rate) 81 /min Kady Thrasher LPN [facility] Work Phone: Comment on above: Pattern: Regular 05-13-2019 10:11-0500 Pulse Oximetry 97 % Gloria James [facility] Work Phone: Comment on above: Room air 05-13-2019 10:11-0500 Respiratory Rate 16 /min Kady Thrasher [employer]CH[employer] [facility] Work Phone: Comment on above: Pattern: Unlabored 05-13-2019 10:11-0500 SaO2% (BldA) [Mass fraction] 97 % Kady Thrasher [employer] TECHNICIAN [facility]; [facility] Work Phone: Comment on above: Room air 04-27-2019 11:47-0400 BMI (Body Mass Index) 30.16 kg/m2 Elisabet Slarb [employer] TECHNICIAN [facility] Work Phone: 04-27-2019 11:47-0400 Body weight 78.47 kg Elisabet Slarb [employer] TECHNICIAN [facility] Work Phone: 04-27-2019 11:47-0400 BP Diastolic 78 mm[Hg] Elisabet Slarb [employer] TECHNICIAN [facility] Work Phone: Comment on above: Patient Position: Sitting; Cuff Location : Left Arm; Cuff Size: Standard 04-27-2019 11:47-0400 BP Systolic 116 mm[Hg] Elisabet Slarb [employer] TECHNIC[employer] [facility] Work Phone: Comment on above: Patient Position: Sitting; Cuff Location : Left Arm; Cuff Size: Standard 04-27-2019 11:47-0400 BSA (Body Surface Area) 1.83 m2 Elisabet Slarb [employer] TECHNICIAN [facility] Work Phone: 04-27-2019 11:47-0400 Height 161.29 cm Elisabet Slarb [employer] TECHNICIAN [facility] Work Phone: 04-27-2019 11:47-0400 Pulse (Heart Rate) 80 /min Elisabet Slarb [employer] TECHNICIAN [facility] Work Phone: Comment on above: Pattern: Regular 04-27-2019 11:47-0400 Pulse Oximetry 97 % Gloria James [facility] Work Phone: Comment on above: Room air 04-27-2019 11:47-0400 Respiratory Rate 16 /min Elisabet Slarb [employer] TECHNICIAN [facility] Work Phone: Comment on above: Pattern: Unlabored 04-27-2019 11:47-0400 SaO2% (BldA) [Mass fraction] 97 % Elisabet Hughesprashanth DE OLIVEIRA [facility]; [facility] Work Phone: Comment on above: Room air 05-27-2016 10:24-0500 BMI (Body Mass Index) 26.5 kg/m2 Sofya Chandler RN [facility] Work Phone: 05-27-2016 10:24-0500 Body Temperature 98.2 [degF] Sofya Chandler RN [facility] Work Phone: Comment on above: Method: Temporal 05-27-2016 10:24-0500 Body weight 68.95 kg Sofya Chandler RN [facility] Work Phone: 05-27-2016 10:24-0500 BP Diastolic 64 mm[Hg] Sofya Chandler RN [facility] Work Phone: Comment on above: Patient Position: Sitting; Cuff Location : Left Arm; Cuff Size: Standard 05-27-2016 10:24-0500 BP Systolic 100 mm[Hg] Sofya Chandler RN [facility] Work Phone: Comment on above: Patient Position: Sitting; Cuff Location : Left Arm; Cuff Size: Standard 05-27-2016 10:24-0500 BSA (Body Surface Area) 1.73 m2 Sofya Chandler RN [facility] Work Phone: 05-27-2016 10:24-0500 Height 161.29 cm Sofya Chandler RN [facility] Work Phone: 05-27-2016 10:24-0500 Pulse (Heart Rate) 102 /min Sofya Chandler RN [facility] Work Phone: Comment on above: Pattern: Regular 05-27-2016 10:24-0500 Pulse Oximetry 98 % Gloria Jacob [facility] Work Phone: Comment on above: Room air 05-27-2016 10:24-0500 Respiratory Rate 16 /min Sofya L Long RN [facility] Work Phone: Comment on above: Pattern: Unlabored 05-27-2016 10:24-0500 SaO2% (BldA) [Mass fraction] 98 % Sofya Chandler RN [facility]; [facility] Work Phone: Comment on above: Room air 02-27-2016 15:18-0400 BMI (Body Mass Index) 26.68 kg/m2 Elisabet Slarb [employer] TECHNICIAN [facility] Work Phone: 02-27-2016 15:18-0400 Body Temperature 97.4 [degF] Elisabet Slarb [employer] TECHNICIAN [facility] Work Phone: 02-27-2016 15:18-0400 Body weight 69.4 kg Elisabet Slarb [employer] TECHNICIAN [facility] Work Phone: 02-27-2016 15:18-0400 BP Diastolic 80 mm[Hg] Elisabet Slarb [employer] TECHNICIAN [facility] Work Phone: Comment on above: Patient Position: Sitting; Cuff Location : Left Arm; Cuff Size: Standard 02-27-2016 15:18-0400 BP Systolic 118 mm[Hg] Elisabet Slarb [employer] TECHNICIAN [facility] Work Phone: Comment on above: Patient Position: Sitting; Cuff Location : Left Arm; Cuff Size: Standard 02-27-2016 15:18-0400 BSA (Body Surface Area) 1.74 m2 Elisabet Slarb [employer] TECHNICIAN [facility] Work Phone: 02-27-2016 15:18-0400 Height 161.29 cm Elisabet Slarb [employer] TECHNICIAN [facility] Work Phone: 02-27-2016 15:18-0400 Pulse (Heart Rate) 71 /min Elisabet Slarb [employer] TECHNICIAN [facility] Work Phone: Comment on above: Pattern: Regular 02-27-2016 15:18-0400 Pulse Oximetry 98 % Gloria James [facility] Work Phone: Comment on above: Room air 02-27-2016 15:18-0400 Respiratory Rate 17 /min Elisabet Slarb [employer] TECHNICIAN [facility] Work Phone: Comment on above: Pattern: Unlabored 02-27-2016 15:18-0400 SaO2% (BldA) [Mass fraction] 98 % Elisabet Slarb [employer] TECHNICIAN [facility]; [facility] Work Phone: Comment on above: Room air 02-20-2016 15:29-0400 BMI (Body Mass Index) 26.68 kg/m2 Elisabet Slarb [employer] TECHNICIAN [facility] Work Phone: 02-20-2016 15:29-0400 Body Temperature 97.9 [degF] Elisabet Slarb [employer] TECHNICIAN [facility] Work Phone: 02-20-2016 15:29-0400 Body weight 69.4 kg Elisabet Slarb [employer] TECHNICIAN [facility] Work Phone: 02-20-2016 15:29-0400 BP Diastolic 76 mm[Hg] Elisabet Slarb [employer] TECHNICIAN [facility] Work Phone: Comment on above: Patient Position: Sitting; Cuff Location : Left Arm; Cuff Size: Standard 02-20-2016 15:29-0400 BP Systolic 108 mm[Hg] Elisabet Slarb [employer] TECHNICIAN [facility] Work Phone: Comment on above: Patient Position: Sitting; Cuff Location : Left Arm; Cuff Size: Standard 02-20-2016 15:29-0400 BSA (Body Surface Area) 1.74 m2 Elisabet Slarb [employer] TECHNICIAN [facility] Work Phone: 02-20-2016 15:29-0400 Height 161.29 cm Elisabet Slarb [employer] TECHNICIAN [facility] Work Phone: 02-20-2016 15:29-0400 Pulse (Heart Rate) 76 /min Elisabet Slarb [employer] TECHNICIAN [facility] Work Phone: Comment on above: Pattern: Regular 02-20-2016 15:29-0400 Pulse Oximetry 98 % Gloria James [facility] Work Phone: Comment on above: Room air 02-20-2016 15:29-0400 Respiratory Rate 17 /min Elisabet Slarb [employer] TECHNICIAN [facility] Work Phone: Comment on above: Pattern: Unlabored 02-20-2016 15:29-0400 SaO2% (BldA) [Mass fraction] 98 % Elisabet Campbell [facility]; [facility] Work Phone: Comment on above: Room air 12-10-2015 16:40-0400 BMI (Body Mass Index) 27.03 kg/m2 Trina Tayloren [facility] Work Phone: 12-10-2015 16:40-0400 Body Temperature 97.4 [degF] Trina Castelan [facility] Work Phone: Comment on above: Method: Temporal 12-10-2015 16:40-0400 Body weight 70.31 kg Trina Castelan [facility] Work Phone: 12-10-2015 16:40-0400 BP Diastolic 80 mm[Hg] Trina Castelan [facility] Work Phone: Comment on above: Patient Position: Sitting; Cuff Location : Left Arm; Cuff Size: Standard 12-10-2015 16:40-0400 BP Systolic 110 mm[Hg] Trina Castelan [facility] Work Phone: Comment on above: Patient Position: Sitting; Cuff Location : Left Arm; Cuff Size: Standard 12-10-2015 16:40-0400 BSA (Body Surface Area) 1.75 m2 Trina Castelan [facility] Work Phone: 12-10-2015 16:40-0400 Height 161.29 cm Trina Castelan [facility] Work Phone: 12-10-2015 16:40-0400 Pulse (Heart Rate) 88 /min Trina Taylorensiv e [facility] Work Phone: Comment on above: Pattern: Regular 12-10-2015 16:40-0400 Pulse Oximetry 98 % Gloria James [facility] Work Phone: Comment on above: Room air 12-10-2015 16:40-0400 Respiratory Rate 15 /min Trina Castelan [facility] Work Phone: Comment on above: Pattern: Unlabored 12-10-2015 16:40-0400 SaO2% (BldA) [Mass fraction] 98 % Trina Castelan [facility]; [facility] Work Phone: Comment on above: Room air 08-24-2015 12:02-0500 BMI (Body Mass Index) 27.03 kg/m2 Jewell Roa RN [facility] Work Phone: 08-24-2015 12:02-0500 Body weight 70.31 kg Jewell Roa RN [facility] Work Phone: 08-24-2015 12:02-0500 BP Diastolic 62 mm[Hg] Jewell Roa RN [facility] Work Phone: Comment on above: Patient Position: Sitting; Cuff Location : Right Arm; Cuff Size: Large 08-24-2015 12:02-0500 BP Systolic 122 mm[Hg] Jewell Roa RN [facility] Work Phone: Comment on above: Patient Position: Sitting; Cuff Location : Right Arm; Cuff Size: Large 08-24-2015 12:02-0500 BSA (Body Surface Area) 1.75 m2 Jewell Roa RN [facility] Work Phone: 08-24-2015 12:02-0500 Height 161.29 cm Jewell Roa RN [facility] Work Phone: 08-24-2015 12:02-0500 Pulse (Heart Rate) 76 /min Jewell Roa RN [facility] Work Phone: Comment on above: Pattern: Regular 08-24-2015 12:02-0500 Pulse Oximetry 97 % Gloria Olmoson [facility] Work Phone: Comment on above: Room air 08-24-2015 12:02-0500 Respiratory Rate 20 /min Jewell Roa RN [facility] Work Phone: Comment on above: Pattern: Unlabored 08-24-2015 12:02-0500 SaO2% (BldA) [Mass fraction] 97 % Jewell Roa RN [facility]; [facility] Work Phone: Comment on above: Room air 07-25-2015 15:28-0500 BMI (Body Mass Index) 27.03 kg/m2 Evangelina A Fast DO Work Phone: [facility] Work Phone: 07-25-2015 15:28-0500 Body Temperature 97.3 [degF] Evangelina A Fast DO Work Phone: [facility] Work Phone: Comment on above: Method: Oral 07-25-2015 15:28-0500 Body weight 70.31 kg Evangelina A Fast DO Work Phone: [facility] Work Phone: 07-25-2015 15:28-0500 BP Diastolic 70 mm[Hg] Evangelina A Fast DO Work Phone: [facility] Internal Medicine Work Phone: Comment on above: Patient Position: Sitting; Cuff Location : Left Arm; Cuff Size: Standard 07-25-2015 15:28-0500 BP Systolic 116 mm[Hg] Evangelina A Fast DO Work Phone: [facility] Work Phone: Comment on above: Patient Position: Sitting; Cuff Location : Left Arm; Cuff Size: Standard 07-25-2015 15:28-0500 BSA (Body Surface Area) 1.75 m2 Evangelina A Fast DO Work Phone: [facility] Work Phone: 07-25-2015 15:28-0500 Height 161.29 cm Evangelina A Fast DO Work Phone: [facility] Work Phone: 07-25-2015 15:28-0500 Pulse (Heart Rate) 83 /min Evangelina A Fast DO Work Phone: [facility] Work Phone: Comment on above: Pattern: Regular 07-25-2015 15:28-0500 Respiratory Rate 16 /min Evangelina A Fast DO Work Phone: [facility] Work Phone: Comment on above: Pattern: Unlabored 03-06-2015 10:28-0400 BMI (Body Mass Index) 27.55 kg/m2 Trina Castelan [facility] Internal Medicine Work Phone: 03-06-2015 10:28-040 Body Temperature 98.1 [degF] Trina Castelan [facility] Internal Medicine Work Phone: Comment on above: Method: Oral 03-06-2015 10:28040 Body weight 71.67 kg Trina Castelan [facility] Internal Medicine Work Phone: 03-06-2015 10:28-0400 BP Diastolic 64 mm[Hg] Trina Castelan [facility] Internal Medicine Work Phone: Comment on above: Patient Position: Sitting; Cuff Location : Left Arm; Cuff Size: Standard 03-06-2015 10:28-0400 BP Systolic 92 mm[Hg] Trina Castelan [facility] Internal Medicine Work Phone: Comment on above: Patient Position: Sitting; Cuff Location : Left Arm; Cuff Size: Standard 03-06-2015 10:28-0400 BSA (Body Surface Area) 1.76 m2 Trina Castelan [facility] Internal Medicine Work Phone: 03-06-2015 10:280400 Height 161.29 cm Trina Castelan [facility] Internal Medicine Work Phone: 03-06-2015 10:28-0400 Pulse (Heart Rate) 72 /min Trina Castelan [facility] Internal Medicine Work Phone: Comment on above: Pattern: Regular 03-06-2015 10:28-0400 Respiratory Rate 16 /min Trina Heparris [facility] Internal Medicine Work Phone: Comment on above: Pattern: Unlabored 03-02-2015 12:01-0400 BMI (Body Mass Index) 27.55 kg/m2 Trina Castelan [facility] Internal Medicine Work Phone: 03-02-2015 12:01-0400 Body Temperature 96.2 [degF] Trina Heparris [facility] Internal Medicine Work Phone: Comment on above: Method: Oral 03-02-2015 12:010400 Body weight 71.67 kg Trina Castelan [facility] Internal Medicine Work Phone: 03-02-2015 12:01-0400 BP Diastolic 60 mm[Hg] Trina Castelan [facility] Internal Medicine Work Phone: Comment on above: Patient Position: Sitting; Cuff Location : Left Arm; Cuff Size: Standard 03-02-2015 12:01-0400 BP Systolic 110 mm[Hg] Trina Castelan [facility] Internal Medicine Work Phone: Comment on above: Patient Position: Sitting; Cuff Location : Left Arm; Cuff Size: Standard 03-02-2015 12:01-0400 BSA (Body Surface Area) 1.76 m2 Trina Castelan [facility] Internal Medicine Work Phone: 03-02-2015 12:01-0400 Height 161.29 cm Trina Castelan [facility] Internal Medicine Work Phone: 03-02-2015 12:01-0400 Pulse (Heart Rate) 72 /min Trina Castelan [facility] Medicine Work Phone: Comment on above: Pattern: Regular 03-02-2015 12:01-0400 Respiratory Rate 16 /min Trina Castelan [facility] Internal Medicine Work Phone: Comment on above: Pattern: Unlabored 11-21-2014 10:17-0400 BMI (Body Mass Index) 27.55 kg/m2 Trina Castelan [facility] Internal Medicine Work Phone: 11-21-2014 10:17-0400 Body Temperature 99.1 [degF] Trina Castelan [facility] Internal Medicine Work Phone: Comment on above: Method: Oral 11-21-2014 10:170400 Body weight 71.67 kg Trina Castelan [facility] Internal Medicine Work Phone: 11-21-2014 10:17-0400 BP Diastolic 62 mm[Hg] Trina Castelan [facility] Internal Medicine Work Phone: Comment on above: Patient Position: Sitting; Cuff Location : Left Arm; Cuff Size: Standard 11-21-2014 10:17-0400 BP Systolic 100 mm[Hg] Trina Castelan [facility] Internal Medicine Work Phone: Comment on above: Patient Position: Sitting; Cuff Location : Left Arm; Cuff Size: Standard 11-21-2014 10:17-0400 BSA (Body Surface Area) 1.76 m2 Trina Basskenny [facility] Internal Medicine Work Phone: 11-21-2014 10:17-0400 Height 161.29 cm Trina Basskenny [facility] Internal Medicine Work Phone: 11-21-2014 10:17-0400 Pulse (Heart Rate) 92 /min Trina Castelan [facility] Internal Medicine Work Phone: Comment on above: Pattern: Regular 11-21-2014 10:17-0400 Respiratory Rate 16 /min Trina Basskenny [facility] Internal Medicine Work Phone: Comment on above: Pattern: Unlabored 04-26-2014 15:57-0400 BMI (Body Mass Index) 25.28 kg/m2 Gloria James [facility] Internal Medicine Work Phone: 04-26-2014 15:57-0400 Body Temperature 97.5 [degF] Gloria James [facility] Internal Medicine Work Phone: Comment on above: Method: Oral 04-26-2014 15:57-0400 Body weight 65.77 kg Gloria James [facility] Internal Medicine Work Phone: 04-26-2014 15:57-0400 BP Diastolic 70 mm[Hg] Gloria James [facility] Internal Medicine Work Phone: Comment on above: Patient Position: Sitting; Cuff Location : Left Arm; Cuff Size: Standard 04-26-2014 15:57-0400 BP Systolic 110 mm[Hg] Gloria James [facility] Internal Medicine Work Phone: Comment on above: Patient Position: Sitting; Cuff Location : Left Arm; Cuff Size: Standard 04-26-2014 15:57-0400 BSA (Body Surface Area) 1.7 m2 Gloria James [facility] Internal Medicine Work Phone: 04-26-2014 15:57-0400 Height 161.29 cm Gloria James [facility] Internal Medicine Work Phone: 04-26-2014 15:57-0400 Pulse (Heart Rate) 76 /min Gloria James [facility] Internal Medicine Work Phone: Comment on above: Pattern: Regular 04-26-2014 15:57-0400 Pulse Oximetry 99 % Gloria James [facility] Internal Medicine Work Phone: Comment on above: Room air 04-26-2014 15:57-0400 SaO2% (BldA) [Mass fraction] 99 % Gloria James DO Work Phone: [facility] Internal Medicine; [facility] Internal Medicine Work Phone: Comment on above: Room air 02-06-2014 13:27-0400 BMI (Body Mass Index) 25.28 kg/m2 Trina Castelan [facility] Internal Medicine Work Phone: 02-06-2014 13:27-0400 Body Temperature 97.8 [degF] Trina Castelan [facility] Internal Medicine Work Phone: 02-06-2014 13:27-0400 Body weight 65.77 kg Trina Castelan [facility] Internal Medicine Work Phone: 02-06-2014 13:27-0400 BP Diastolic 66 mm[Hg] Trina Castelan [facility] Internal Medicine Work Phone: Comment on above: Patient Position: Sitting; Cuff Location : Left Arm; Cuff Size: Large 02-06-2014 13:27-0400 BP Systolic 104 mm[Hg] Trina Castelan [facility] Internal Medicine Work Phone: Comment on above: Patient Position: Sitting; Cuff Location : Left Arm; Cuff Size: Large 02-06-2014 13:27-0400 BSA (Body Surface Area) 1.7 m2 Trina Castealn [facility] Internal Medicine Work Phone: 02-06-2014 13:27-0400 Height 161.29 cm Trina Castelan [facility] Internal Medicine Work Phone: 02-06-2014 13:27-0400 Pulse (Heart Rate) 88 /min Trina Castelan [facility] Internal Medicine Work Phone: Comment on above: Pattern: Regular 02-06-2014 13:27-0400 Respiratory Rate 16 /min Trina Castelan [facility] Internal Medicine Work Phone: Comment on above: Pattern: Unlabored 01-17-2014 14:10-0400 BMI (Body Mass Index) 24.06 kg/m2 [facility] Work Phone: 01-17-2014 14:10-0400 Body Temperature 98.3 [degF] Trina Castelan [facility] Internal Medicine Work Phone: 01-17-2014 14:10-0400 Body weight 62.6 kg Trina Castelan [facility] Internal Medicine Work Phone: 01-17-2014 14:10-0400 BP Diastolic 70 mm[Hg] Trina Castelan [facility] Internal Medicine Work Phone: Comment on above: Patient Position: Sitting; Cuff Location : Left Arm; Cuff Size: Large 01-17-2014 14:10-0400 BP Systolic 102 mm[Hg] Trina Castelan [facility] Internal Medicine Work Phone: Comment on above: Patient Position: Sitting; Cuff Location : Left Arm; Cuff Size: Large 01-17-2014 14:10-0400 BSA (Body Surface Area) 1.66 m2 Trina Castelan [facility] Internal Medicine Work Phone: 01-17-2014 14:100400 Height 161.29 cm Trina Castelan [facility] Internal Medicine Work Phone: 01-17-2014 14:10-0400 Pulse (Heart Rate) 86 /min Trina Castelan [facility] Internal Medicine Work Phone: Comment on above: Pattern: Regular 01-17-2014 14:10-0400 Respiratory Rate 16 /min Trina Heparris [facility] Internal Medicine Work Phone: Comment on above: Pattern: Unlabored 12-21-2013 11:56-0400 BMI (Body Mass Index) 24.41 kg/m2 Sofia Woodson [facility] Internal Medicine Work Phone: 12-21-2013 11:56-0400 Body Temperature 98.6 [degF] Sofia Woodson [facility] Internal Medicine Work Phone: Comment on above: Method: Oral 12-21-2013 11:56-0400 Body weight 63.5 kg Sofia Woodson [facility] Internal Medicine Work Phone: 12-21-2013 11:56-0400 BP Diastolic 60 mm[Hg] Sofia Woodson [facility] Internal Medicine Work Phone: Comment on above: Patient Position: Sitting; Cuff Location : Left Arm; Cuff Size: Standard 12-21-2013 11:56-0400 BP Systolic 115 mm[Hg] Sofia Woodson [facility] Internal Medicine Work Phone: Comment on above: Patient Position: Sitting; Cuff Location : Left Arm; Cuff Size: Standard 12-21-2013 11:56-0400 BSA (Body Surface Area) 1.67 m2 Sofia Woodson [facility] Internal Medicine Work Phone: 12-21-2013 11:56-0400 Height 161.29 cm [facility] Work Phone: 12-21-2013 11:56-0400 Pulse (Heart Rate) 64 /min Sofia Woodson [facility] Internal Medicine Work Phone: Comment on above: Pattern: Regular 12-21-2013 11:56-0400 Pulse Oximetry 98 % Gloria James [facility] Internal Medicine Work Phone: Comment on above: Room air 12-21-2013 11:56-0400 Respiratory Rate 16 /min Sofia Woodson [facility] Internal Medicine Work Phone: Comment on above: Pattern: Unlabored 12-21-2013 11:56-0400 SaO2% (BldA) [Mass fraction] 98 % Sofia Woodson [facility]; [facility] Work Phone: Comment on above: Room air 04-26-2013 08:31-0400 BMI (Body Mass Index) 25.63 kg/m2 Trina Castelan [facility] Work Phone: 04-26-2013 08:31-0400 Body Temperature 98 [degF] Trina Heparris [facility] Internal Medicine Work Phone: 04-26-2013 08:31-0400 Body weight 66.68 kg Trina Heyfnkenny [facility] Internal Medicine Work Phone: 04-26-2013 08:31-0400 BP Diastolic 62 mm[Hg] Trina Heparris [facility] Internal Medicine Work Phone: Comment on above: Patient Position: Sitting; Cuff Location : Left Arm; Cuff Size: Large 04-26-2013 08:31-0400 BP Systolic 98 mm[Hg] Trina Basskenny [facility] Internal Medicine Work Phone: Comment on above: Patient Position: Sitting; Cuff Location : Left Arm; Cuff Size: Large 04-26-2013 08:31-0400 BSA (Body Surface Area) 1.71 m2 Trina Basskenny [facility] Internal Medicine Work Phone: 04-26-2013 08:31-0400 Height 161.29 cm Trina Annelise [facility] Internal Medicine Work Phone: 04-26-2013 08:31-0400 Pulse (Heart Rate) 84 /min Trina Castelan [facility] Work Phone: Comment on above: Pattern: Regular 04-26-2013 08:31-0400 Respiratory Rate 16 /min Trina Heparris [facility] Internal Medicine Work Phone: Comment on above: Pattern: Unlabored 06-16-2012 13:33-0500 BMI (Body Mass Index) 24.06 kg/m2 Sofya Chandler RN [facility] Internal Medicine Work Phone: 06-16-2012 13:33-0500 Body Temperature 99.5 [degF] Sofya Chandler RN [facility] Work Phone: Comment on above: Method: Oral 06-16-2012 13:33-0500 Body weight 62.6 kg Sofya Chandler RN [facility] Work Phone: 06-16-2012 13:33-0500 BP Diastolic 70 mm[Hg] Sofya Chandler RN [facility] Work Phone: Comment on above: Patient Position: Sitting; Cuff Location : Left Arm; Cuff Size: Standard 06-16-2012 13:33-0500 BP Systolic 126 mm[Hg] Sofya Chandler RN [facility] Work Phone: Comment on above: Patient Position: Sitting; Cuff Location : Left Arm; Cuff Size: Standard 06-16-2012 13:33-0500 BSA (Body Surface Area) 1.66 m2 Sofya Chandler RN [facility] Work Phone: 06-16-2012 13:33-0500 Height 161.29 cm Sofya Chandler RN [facility] Work Phone: 06-16-2012 13:33-0500 Pulse (Heart Rate) 64 /min Sofya Chandler RN [facility] Work Phone: Comment on above: Pattern: Regular 06-16-2012 13:33-0500 Respiratory Rate 16 /min Sofya Chandler RN [facility] Work Phone: Comment on above: Pattern: Unlabored 04-14-2012 13:30-0400 BMI (Body Mass Index) 24.06 kg/m2 Trina Castelan [facility] Internal Medicine Work Phone: 04-14-2012 13:30-0400 Body Temperature 98.3 [degF] Trina Castelan [facility] Internal Medicine Work Phone: 04-14-2012 13:30-0400 Body weight 62.6 kg Trina Castelan [facility] Internal Medicine Work Phone: 04-14-2012 13:30-0400 BP Diastolic 64 mm[Hg] Trina Castelan [facility] Internal Medicine Work Phone: Comment on above: Patient Position: Sitting; Cuff Location : Left Arm; Cuff Size: Large 04-14-2012 13:30-0400 BP Systolic 100 mm[Hg] Trina Heyfnkenny [facility] Internal Medicine Work Phone: Comment on above: Patient Position: Sitting; Cuff Location : Left Arm; Cuff Size: Large 04-14-2012 13:30-0400 BSA (Body Surface Area) 1.66 m2 Trina Annelise [facility] Internal Medicine Work Phone: 04-14-2012 13:30-0400 Height 161.29 cm Trina Annelise [facility] Internal Medicine Work Phone: 04-14-2012 13:30-0400 Pulse (Heart Rate) 84 /min Trina Heparris [facility] Work Phone: Comment on above: Pattern: Regular 04-14-2012 13:30-0400 Respiratory Rate 16 /min Trina Annelise [facility] Internal Medicine Work Phone: Comment on above: Pattern: Unlabored 01-12-2012 15:44-0400 BMI (Body Mass Index) 23.36 kg/m2 Trina Heparris [facility] Medicine Work Phone: 01-12-2012 15:44-0400 Body Temperature 97.8 [degF] Trina Annelise [facility] Internal Medicine Work Phone: 01-12-2012 15:44-0400 Body weight 60.78 kg Trina Annelise [facility] Internal Medicine Work Phone: 01-12-2012 15:44-0400 BP Diastolic 66 mm[Hg] Trina Annelise [facility] Internal Medicine Work Phone: Comment on above: Patient Position: Sitting; Cuff Location : Left Arm; Cuff Size: Standard 01-12-2012 15:44-0400 BP Systolic 94 mm[Hg] Trina Annelise [facility] Internal Medicine Work Phone: Comment on above: Patient Position: Sitting; Cuff Location : Left Arm; Cuff Size: Standard 01-12-2012 15:44-0400 BSA (Body Surface Area) 1.64 m2 Trina Castelan [facility] Internal Medicine Work Phone: 01-12-2012 15:44-0400 Height 161.29 cm Trina Castelan [facility] Internal Medicine Work Phone: 01-12-2012 15:44-0400 Pulse (Heart Rate) 88 /min Trina Castelan [facility] Medicine Work Phone: Comment on above: Pattern: Regular 01-12-2012 15:44-0400 Respiratory Rate 16 /min Trina Castelan [facility] Internal Medicine Work Phone: Comment on above: Pattern: Unlabored 10-22-2011 14:31-0400 BMI (Body Mass Index) 23.71 kg/m2 [facility] Work Phone: 10-22-2011 14:31-0400 Body Temperature 97 [degF] Trina Castelan [facility] Internal Medicine Work Phone: 10-22-2011 14:31-0400 Body weight 61.69 kg Trina Castelan [facility] Internal Medicine Work Phone: 10-22-2011 14:31-0400 BP Diastolic 54 mm[Hg] Trina Castelan [facility] Internal Medicine Work Phone: Comment on above: Patient Position: Sitting; Cuff Location : Left Arm; Cuff Size: Large 10-22-2011 14:31-0400 BP Systolic 92 mm[Hg] Trina Basskenny [facility] Internal Medicine Work Phone: Comment on above: Patient Position: Sitting; Cuff Location : Left Arm; Cuff Size: Large 10-22-2011 14:31-0400 BSA (Body Surface Area) 1.65 m2 Trina Basskenny [facility] Internal Medicine Work Phone: 10-22-2011 14:31-0400 Height 161.29 cm Trina Basskenny [facility] Internal Medicine Work Phone: 10-22-2011 14:31-0400 Pulse (Heart Rate) 84 /min Trina Castelan [facility] Medicine Work Phone: Comment on above: Pattern: Regular 10-22-2011 14:31-0400 Respiratory Rate 16 /min Trina Castelan [facility] Internal Medicine Work Phone: Comment on above: Pattern: Unlabored 10-03-2011 10:48-0400 BMI (Body Mass Index) 24.24 kg/m2 Trina Castelan [facility] Internal Medicine Work Phone: 10-03-2011 10:48-0400 Body Temperature 97.6 [degF] Trina Castelan [facility] Internal Medicine Work Phone: 10-03-2011 10:48-0400 Body weight 63.05 kg Trina Castelan [facility] Internal Medicine Work Phone: 10-03-2011 10:48-0400 BP Diastolic 80 mm[Hg] Trina Castelan [facility] Internal Medicine Work Phone: Comment on above: Patient Position: Sitting; Cuff Location : Left Arm; Cuff Size: Large 10-03-2011 10:48-0400 BP Systolic 110 mm[Hg] Trina Castelan [facility] Internal Medicine Work Phone: Comment on above: Patient Position: Sitting; Cuff Location : Left Arm; Cuff Size: Large 10-03-2011 10:48-0400 BSA (Body Surface Area) 1.67 m2 Trina Castelan [facility] Internal Medicine Work Phone: 10-03-2011 10:48-0400 Height 161.29 cm Trina Castelan [facility] Internal Medicine Work Phone: 10-03-2011 10:48-0400 Pulse (Heart Rate) 76 /min [facility] Work Phone: Comment on above: Pattern: Regular 10-03-2011 10:48-0400 Respiratory Rate 16 /min Trina Castelan [facility] Internal Medicine Work Phone: Comment on above: Pattern: Unlabored 06-17-2011 15:12-0500 BMI (Body Mass Index) 24.58 kg/m2 [facility] Work Phone: Comment on above: wearing shoes and coat 06-17-2011 15:12-0500 Body Temperature 98.4 [degF] Sofya Chandler RN [facility] Work Phone: Comment on above: Method: Oral wearing shoes and co at 06-17-2011 15:12-0500 Body weight 63.96 kg Sofya Chandler RN [facility] Work Phone: Comment on above: wearing shoes and coat 06-17-2011 15:12-0500 BP Diastolic 74 mm[Hg] Sofya Chandler RN [facility] Work Phone: Comment on above: Patient Position: Sitting; Cuff Location : Left Arm; Cuff Size: Standard wearing shoes and co at 06-17-2011 15:12-0500 BP Systolic 132 mm[Hg] Sofya Chandler RN [facility] Work Phone: Comment on above: Patient Position: Sitting; Cuff Location : Left Arm; Cuff Size: Standard wearing shoes and co at 06-17-2011 15:12-0500 BSA (Body Surface Area) 1.68 m2 Sofya Chandler RN [facility] Work Phone: Comment on above: wearing shoes and coat 06-17-2011 15:12-0500 Height 161.29 cm Sofya Chandler RN [facility] Work Phone: Comment on above: wearing shoes and coat 06-17-2011 15:12-0500 Pulse (Heart Rate) 72 /min Sofya Chandler RN [facility] Work Phone: Comment on above: Pattern: Regular wearing shoes and co at 06-17-2011 15:12-0500 Respiratory Rate 16 /min Sofya Chandler RN [facility] Internal Medicine Work Phone: Comment on above: Pattern: Unlabored wearing shoes and co at 02-28-2011 07:36-0400 BMI (Body Mass Index) 23.89 kg/m2 Trina Castelan [facility] Internal Medicine Work Phone: 02-28-2011 07:36-0400 Body Temperature 97.9 [degF] Trina Castelan [facility] Internal Medicine Work Phone: 02-28-2011 07:36-0400 Body weight 62.14 kg Trina Castelan [facility] Internal Medicine Work Phone: 02-28-2011 07:36-0400 BP Diastolic 62 mm[Hg] Trina Castelan [facility] Internal Medicine Work Phone: Comment on above: Patient Position: Sitting; Cuff Location : Left Arm; Cuff Size: Standard 02-28-2011 07:36-0400 BP Systolic 94 mm[Hg] Trina Castelan [facility] Internal Medicine Work Phone: Comment on above: Patient Position: Sitting; Cuff Location : Left Arm; Cuff Size: Standard 02-28-2011 07:36-0400 BSA (Body Surface Area) 1.66 m2 Trina Castelan [facility] Internal Medicine Work Phone: 02-28-2011 07:36-0400 Height 161.29 cm Trina Castelan [facility] Internal Medicine Work Phone: 02-28-2011 07:36-0400 Pulse (Heart Rate) 72 /min Trina Castelan [facility] Internal Medicine Work Phone: Comment on above: Pattern: Regular 02-28-2011 07:36-0400 Respiratory Rate 16 /min Trina Castelan [facility] Internal Medicine Work Phone: Comment on above: Pattern: Unlabored 01-01-2011 14:37-0400 BMI (Body Mass Index) 24.24 kg/m2 Trina Castelan [facility] Internal Medicine Work Phone: 01-01-2011 14:37-0400 Body Temperature 98.4 [degF] Trina Castelan [facility] Internal Medicine Work Phone: 01-01-2011 14:37-0400 Body weight 63.05 kg Trina Castelan [facility] Internal Medicine Work Phone: 01-01-2011 14:37-0400 BP Diastolic 76 mm[Hg] Trina Heparris [facility] Internal Medicine Work Phone: Comment on above: Patient Position: Sitting; Cuff Location : Left Arm; Cuff Size: Standard 01-01-2011 14:37-0400 BP Systolic 112 mm[Hg] Trina Castelan [facility] Internal Medicine Work Phone: Comment on above: Patient Position: Sitting; Cuff Location : Left Arm; Cuff Size: Standard 01-01-2011 14:37-0400 BSA (Body Surface Area) 1.67 m2 Trina Heparris [facility] Internal Medicine Work Phone: 01-01-2011 14:37-0400 Height 161.29 cm Trina Heparris [facility] Internal Medicine Work Phone: 01-01-2011 14:37-0400 Pulse (Heart Rate) 80 /min Trina Castelan [facility] Internal Medicine Work Phone: Comment on above: Pattern: Regular 01-01-2011 14:37-0400 Respiratory Rate 16 /min Trina Heparris [facility] Internal Medicine Work Phone: Comment on above: Pattern: Unlabored 06-13-2010 14:13-0500 Body Temperature 97 [degF] Jewell Roa RN [facility] Internal Medicine Work Phone: Comment on above: Method: Oral 06-13-2010 14:13-0500 Body weight 64.07 kg Jewell Roa RN [facility] Internal Medicine Work Phone: 06-13-2010 14:13-0500 BP Diastolic 72 mm[Hg] Jewell Roa RN [facility] Internal Medicine Work Phone: Comment on above: Patient Position: Sitting; Cuff Location : Left Arm; Cuff Size: Standard 06-13-2010 14:13-0500 BP Systolic 122 mm[Hg] Jewell Roa RN [facility] Internal Medicine Work Phone: Comment on above: Patient Position: Sitting; Cuff Location : Left Arm; Cuff Size: Standard 06-13-2010 14:13-0500 Pulse (Heart Rate) 64 /min Jewell Roa RN [facility] Internal Medicine Work Phone: Comment on above: Pattern: Regular 06-13-2010 14:13-0500 Respiratory Rate 18 /min Jewell Roa RN [facility] Work Phone: Comment on above: Pattern: Unlabored 05-28-2010 14:47-0500 Body Temperature 97.8 [degF] Trina Castelan [facility] Internal Medicine Work Phone: 05-28-2010 14:47-0500 BP Diastolic 74 mm[Hg] Trina Castelan [facility] Internal Medicine Work Phone: Comment on above: Patient Position: Sitting; Cuff Location : Left Arm; Cuff Size: Standard 05-28-2010 14:47-0500 BP Systolic 110 mm[Hg] Trina Castelan [facility] Internal Medicine Work Phone: Comment on above: Patient Position: Sitting; Cuff Location : Left Arm; Cuff Size: Standard 05-28-2010 14:47-0500 Pulse (Heart Rate) 84 /min Trina Basskenny [facility] Internal Medicine Work Phone: Comment on above: Pattern: Regular 05-28-2010 14:47-0500 Respiratory Rate 18 /min Trina Castelan [facility] Internal Medicine Work Phone: Comment on above: Pattern: Unlabored 01-04-2010 11:25-0400 Body weight 64.07 kg Gloria James [facility] Internal Medicine Work Phone: 01-04-2010 11:25-0400 BP Diastolic 68 mm[Hg] Gloria James [facility] Internal Medicine Work Phone: Comment on above: Patient Position: Sitting; Cuff Location : Left Arm; Cuff Size: Standard 01-04-2010 11:25-0400 BP Systolic 102 mm[Hg] Gloria James [facility] Internal Medicine Work Phone: Comment on above: Patient Position: Sitting; Cuff Location : Left Arm; Cuff Size: Standard 01-04-2010 11:25-0400 Pulse (Heart Rate) 76 /min Gloria James [facility] Internal Medicine Work Phone: Comment on above: Pattern: Regular 01-04-2010 11:25-0400 Respiratory Rate 18 /min Gloria James [facility] Internal Medicine Work Phone: Comment on above: Pattern: Unlabored 09-14-2009 09:01-0500 Body Temperature 98.4 [degF] [facility] Internal Medicine Work Phone: Comment on above: Method: Oral 09-14-2009 09:01-0500 Body weight 65.32 kg [facility] Internal Medicine Work Phone: 09-14-2009 09:01-0500 BP Diastolic 60 mm[Hg] [facility] Internal Medicine Work Phone: Comment on above: Patient Position: Sitting; Cuff Location : Right Arm; Cuff Size: Standard 09-14-2009 09:01-0500 BP Systolic 110 mm[Hg] [facility] Internal Medicine Work Phone: Comment on above: Patient Position: Sitting; Cuff Location : Right Arm; Cuff Size: Standard 09-14-2009 09:01-0500 Pulse (Heart Rate) 72 /min [facility] Internal Medicine Work Phone: Comment on above: Pattern: Regular 09-14-2009 09:01-0500 Respiratory Rate 18 /min [facility] Internal Medicine Work Phone: Comment on above: Pattern: Unlabored 02-05-2009 14:29-0400 BMI (Body Mass Index) 22.5 kg/m2 Jewell Roa [facility] Work Phone: 02-05-2009 14:29-0400 Body Temperature 98.7 [degF] Jewell Roa [facility] Work Phone: Comment on above: Method: Oral 02-05-2009 14:29-0400 Body weight 58.06 kg Jewell Roa [facility] Work Phone: 02-05-2009 14:29-0400 BP Diastolic 70 mm[Hg] Jewell Roa [facility] Work Phone: Comment on above: Patient Position: Sitting; Cuff Location : Left Arm; Cuff Size: Standard 02-05-2009 14:29-0400 BP Systolic 122 mm[Hg] Jewell Roa RN [facility] Work Phone: Comment on above: Patient Position: Sitting; Cuff Location : Left Arm; Cuff Size: Standard 02-05-2009 14:290400 BSA (Body Surface Area) 1.6 m2 Jewell Roa RN [facility] Internal Medicine Work Phone: 02-05-2009 14:29-0400 Head Circumference 0 cm Gloria James [facility] Internal Medicine Work Phone: 02-05-2009 14:29-0400 Head Occipital-frontal circumference 0 cm Jewell Roa RN [facility] Internal Medicine; [facility] Medicine Work Phone: 02-05-2009 14:29-0400 Height 160.66 cm Jewell Roa RN [facility] Internal Medicine Work Phone: 02-05-2009 14:29-0400 Pulse (Heart Rate) 64 /min Jewell Roa RN [facility] Internal Medicine Work Phone: Comment on above: Pattern: Regular 02-05-2009 14:29-0400 Respiratory Rate 20 /min Jewell Roa RN [facility] Internal Medicine Work Phone: Comment on above: Pattern: Unlabored 11-03-2008 12:10-0400 BMI (Body Mass Index) 22.5 kg/m2 Trina Castelan [facility] Internal Medicine Work Phone: 11-03-2008 12:10-0400 Body Temperature 98.8 [degF] Trina Castelan [facility] Internal Medicine Work Phone: Comment on above: Method: Undefined 11-03-2008 12:10-0400 Body weight 58.06 kg Trina Castelan [facility] Internal Medicine Work Phone: 11-03-2008 12:10-0400 BP Diastolic 70 mm[Hg] Trina Castelan [facility] Internal Medicine Work Phone: Comment on above: Patient Position: Sitting; Cuff Location : Right Arm; Cuff Size: Standard 11-03-2008 12:10-0400 BP Systolic 100 mm[Hg] Trina Castelan [facility] Internal Medicine Work Phone: Comment on above: Patient Position: Sitting; Cuff Location : Right Arm; Cuff Size: Standard 11-03-2008 12:10-0400 BSA (Body Surface Area) 1.6 m2 Trina Castelan [facility] Internal Medicine Work Phone: 11-03-2008 12:10-0400 Head Circumference 0 cm Gloria James [facility] Internal Medicine Work Phone: 11-03-2008 12:10-0400 Head Occipital-frontal circumference 0 cm Trina Castelan [facility]; [facility] Work Phone: 11-03-2008 12:10-0400 Height 160.66 cm Trina Castelan [facility] Medicine Work Phone: 11-03-2008 12:10-0400 Pulse (Heart Rate) 78 /min Trina Castelan [facility] Internal Medicine Work Phone: Comment on above: Pattern: Regular 11-03-2008 12:10-0400 Respiratory Rate 16 /min Trina Castelan [facility] Internal Medicine Work Phone: Comment on above: Pattern: Undefined 02-11-2008 09:54-0400 Body Temperature 97.9 [degF] Trina Castelan [facility] Internal Medicine Work Phone: Comment on above: Method: Undefined 02-11-2008 09:54-0400 Body weight 57.15 kg Trina Castelan [facility] Internal Medicine Work Phone: 02-11-2008 09:54-0400 BP Diastolic 62 mm[Hg] Trina Castelan [facility] Internal Medicine Work Phone: Comment on above: Patient Position: Sitting; Cuff Location : Right Arm; Cuff Size: Standard 02-11-2008 09:54-0400 BP Systolic 96 mm[Hg] Trina Castelan [facility] Internal Medicine Work Phone: Comment on above: Patient Position: Sitting; Cuff Location : Right Arm; Cuff Size: Standard 02-11-2008 09:54-0400 Head Circumference 0 cm Gloria James [facility] Internal Medicine Work Phone: 02-11-2008 09:54-0400 Head Occipital-frontal circumference 0 cm Trina Castelan [facility]; [facility] Work Phone: 02-11-2008 09:54-0400 Height 0 cm Trina Castelan [facility] Medicine Work Phone: 02-11-2008 09:54-0400 Pulse (Heart Rate) 72 /min Trina Castelan [facility] Work Phone: Comment on above: Pattern: Regular 02-11-2008 09:54-0400 Respiratory Rate 16 /min Trina Castelan [facility] Internal Medicine Work Phone: Comment on above: Pattern: Undefined 12-22-2007 15:23-0400 Body Temperature 98.3 [degF] Trina Castelan [facility] Internal Medicine Work Phone: Comment on above: Method: Undefined 12-22-2007 15:23-0400 Body weight 57.61 kg Trina Castelan [facility] Medicine Work Phone: 12-22-2007 15:23-0400 BP Diastolic 72 mm[Hg] Trina Castelan [facility] Medicine Work Phone: Comment on above: Patient Position: Sitting; Cuff Location : Right Arm; Cuff Size: Standard 12-22-2007 15:23-0400 BP Systolic 108 mm[Hg] Trina Castelan [facility] Internal Medicine Work Phone: Comment on above: Patient Position: Sitting; Cuff Location : Right Arm; Cuff Size: Standard 12-22-2007 15:23-0400 Head Circumference 0 cm Gloria James [facility] Internal Medicine Work Phone: 12-22-2007 15:23-0400 Head Occipital-frontal circumference 0 cm Trina Castelan [facility]; [facility] Work Phone: 12-22-2007 15:23-0400 Height 0 cm Trina Castelan [facility] Medicine Work Phone: 12-22-2007 15:23-0400 Pulse (Heart Rate) 76 /min Trina Castelan [facility] Work Phone: Comment on above: Pattern: Regular 12-22-2007 15:23-0400 Respiratory Rate 16 /min Trina Castelan [facility] Medicine Work Phone: Comment on above: Pattern: Undefined 11-09-2007 11:43-0400 Body Temperature 98.2 [degF] Trina Castelan [facility] Internal Medicine Work Phone: Comment on above: Method: Undefined 11-09-2007 11:43-0400 Body weight 59.42 kg Trina Castelan [facility] Medicine Work Phone: 11-09-2007 11:43-0400 BP Diastolic 70 mm[Hg] Trina Castelan [facility] Medicine Work Phone: Comment on above: Patient Position: Sitting; Cuff Location : Right Arm; Cuff Size: Standard 11-09-2007 11:43-0400 BP Systolic 104 mm[Hg] Trina Castelan [facility] Medicine Work Phone: Comment on above: Patient Position: Sitting; Cuff Location : Right Arm; Cuff Size: Standard 11-09-2007 11:43-0400 Head Circumference 0 cm Gloria Olmoson [facility] Medicine Work Phone: 11-09-2007 11:43-0400 Head Occipital-frontal circumference 0 cm Trina Castelan [facility]; [facility] Work Phone: 11-09-2007 11:43-0400 Height 0 cm Trina Basskenny [facility] Medicine Work Phone: 11-09-2007 11:43-0400 Pulse (Heart Rate) 84 /min [facility] Work Phone: Comment on above: Pattern: Regular 11-09-2007 11:43-0400 Respiratory Rate 16 /min Trina Basskenny [facility] Internal Medicine Work Phone: Comment on above: Pattern: Undefined 07-08-2007 12:14-0500 Body Temperature 98.5 [degF] Trina Castelan [facility] Medicine Work Phone: Comment on above: Method: Oral 07-08-2007 12:14-0500 Body weight 60.78 kg Trina Castelan [facility] Medicine Work Phone: 07-08-2007 12:14-0500 BP Diastolic 76 mm[Hg] Trina Heyfnkenny [facility] Medicine Work Phone: Comment on above: Patient Position: Sitting; Cuff Location : Left Arm; Cuff Size: Standard 07-08-2007 12:14-0500 BP Systolic 114 mm[Hg] Trina Castelan [facility] Work Phone: Comment on above: Patient Position: Sitting; Cuff Location : Left Arm; Cuff Size: Standard 07-08-2007 12:14-0500 Head Circumference 0 cm Gloria James [facility] Medicine Work Phone: 07-08-2007 12:14-0500 Head Occipital-frontal circumference 0 cm Trina Annelise [facility]; [facility] Work Phone: 07-08-2007 12:14-0500 Height 0 cm Trina Annelise [facility] Medicine Work Phone: 07-08-2007 12:14-0500 Pulse (Heart Rate) 80 /min [facility]ina [facility]kenny [facility] Work Phone: Comment on above: Pattern: Regular 07-08-2007 12:14-0500 Respiratory Rate 16 /min Trina Annelise [facility] Internal Medicine Work Phone: Comment on above: Pattern: Unlabored 06-03-2007 11:15-0500 Body Temperature 98 [degF] Trina Heparris [facility] Medicine Work Phone: Comment on above: Method: Oral 06-03-2007 11:15-0500 Body weight 0 kg Trina Heparris [facility] Medicine Work Phone: 06-03-2007 11:15-0500 BP Diastolic 62 mm[Hg] Trina Annelise [facility] Medicine Work Phone: Comment on above: Patient Position: Sitting; Cuff Location : Right Arm; Cuff Size: Standard 06-03-2007 11:15-0500 BP Systolic 100 mm[Hg] Trina Heparris [facility] Work Phone: Comment on above: Patient Position: Sitting; Cuff Location : Right Arm; Cuff Size: Standard 06-03-2007 11:15-0500 Head Circumference 0 cm Gloria James [facility] Work Phone: 06-03-2007 11:15-0500 Head Occipital-frontal circumference 0 cm Trina Castelan [facility]; [facility] Work Phone: 06-03-2007 11:15-0500 Height 0 cm Trina Castelan [facility] Work Phone: 06-03-2007 11:15-0500 Pulse (Heart Rate) 68 /min Trina Castelan [facility] Work Phone: Comment on above: Pattern: Regular 06-03-2007 11:15-0500 Respiratory Rate 16 /min Trina Castelan [facility] Medicine Work Phone: Comment on above: Pattern: Unlabored Encounters Encounter Date Encounter Type Care Provider Facility Start: 05-17-2025 End: 05-17-2025 ambulatory Joceline Cullen NP Facility:[facility] Start: 05-13-2025 ambulatory [facility] Facility [facility] Start: 05-04-2025 ambulatory Elba Zapata Facility:[facility] Start: 04-18-2025 End: 04-18-2025 Patient encounter procedure [facility] Work Phone: Start: 04-18-2025 End: 04-18-[address] Oleksandr Holbrook MD Work Phone: -[facility] Start: 04-05-2025 [facility] Start: 03-23-2025 End: 03-23-[address] Yovani Doyle MD -[facility] Start: 03-23-2025 End: 03-23-[address] Oleksandr Holbrook MD Work Phone: -[facility] Start: 03-08-2025 Non-patient / Non-visit Dr. Vani Reynoso MD -[facility] Work Phone: Start: 03-07-2025 End: 03-08-2025 Evaluation and management of inpatient Dr. Marcos Mnoroy MD -[facility] Work Phone: Start: 03-07-2025 End: 03-08-[address] Oleksandr Holbrook MD Work Phone: [facility] Start: 03-07-2025 End: 03-08-2025 ambulatory [facility] Facility:[facility] Start: 03-07-2025 Non-patient / Non-visit Dr. Estephania vaughan MD -[facility] Work Phone: Start: 02-23-2025 ambulatory [facility] Facility:[facility] Start: 02-23-2025 Non-patient / Non-visit Dr. Vani Flowers MD -[facility] Work Phone: Start: 02-21-2025 End: 02-21-[address] Marcos Monroy MD -[facility] Work Phone: Start: 02-21-2025 End: 02-21-[address] Oleksandr Holbrook MD Work Phone: -[facility] Start: 12-13-2024 End: 12-13-2024 Patient encounter procedure [facility] Work Phone: Start: 12-13-2024 End: 12-13-[address] Oleksandr Holbrook MD Work Phone: [facility] Work Phone: Start: 12-09-2024 End: 12-09-[address] Oleksandr Holbrook MD Work Phone: [facility] Work Phone: Start: 12-09-2024 End: 12-09-2024 Patient encounter procedure [facility] Work Phone: Start: 12-09-2024 End: 12-09-2024 ambulatory [facility] Facility:[facility] Start: 10-13-2024 End: 10-13-2024 Patient encounter procedure [facility] Work Phone: Start: 10-13-2024 End: 10-13-2024 ambulatory [facility] Facility:[facility] Start: 05-25-2024 End: 05-25-2024 ambulatory [facility] Facility:[facility] Start: 11-16-2023 End: 11-16-2023 Emergency department patient visit Dr. Oleksandr Holbrook Work Phone: [facility]-Emergency Department Work Phone: Start: 09-16-2023 End: 09-16-[address] Oleksandr Holbrook Work Phone: [facility] Work Phone: Start: 09-14-2023 End: 09-14-[address] Oleksandr Holbrook Work Phone: [facility] Work Phone: Start: 09-14-2023 End: 09-14-[address] Oleksandr Holbrook Work Phone: [facility] Work Phone: Start: 09-10-[address] Cory Holbrook Work Phone: [facility]-Physical Therapy Work Phone: Start: 09-02-2023 End: 09-02-[address] Oleksandr Holbrook Work Phone: [facility] Work Phone: Start: 08-24-2023 End: 08-24-[address] Oleksandr Holbrook Work Phone: [facility] Internal Medicine Work Phone: Start: 08-21-2023 End: 08-21-[address] Oleksandr Holbrook Work Phone: [facility] Work Phone: Start: 08-21-2023 End: 08-21-[address] Oleksandr Holbrook Work Phone: [facility]-Laboratory, [facility] Start: 08-17-2023 End: 09-03-[address] Oleksandr Holbrook Work Phone: [facility] Work Phone: Start: 08-17-2023 End: 09-03-[address] Oleksandr Holbrook Work Phone: [facility]-Nutritional Services Work Phone: Start: 08-17-[address] Cory Holbrook Work Phone: [facility]-Nutritional Services Work Phone: Start: 06-23-2023 End: 06-23-[address] Oleksandr Holbrook Work Phone: [facility] Work Phone: Start: 06-23-2023 End: 06-23-[address] Oleksandr Holbrook Work Phone: [facility] Work Phone: Start: 05-20-2023 End: 05-20-[address] Oleksandr Holbrook Work Phone: [facility] Internal Medicine Work Phone: Start: 05-19-2023 End: 05-19-[address] Oleksandr Holbrook Work Phone: [facility] Work Phone: Start: 05-19-2023 End: 05-19-[address] Oleksandr Holbrook Work Phone: [facility]-Laboratory, [facility] Start: 05-08-2023 End: 05-08-[address] Oleksandr Holbrook Work Phone: [facility]-Pulmonary Medicine [facility] Work Phone: Start: 02-10-[address] Cory Holbrook Work Phone: [facility]-Physical Therapy Work Phone: Start: 11-27-2022 End: 11-27-[address] Oleksandr Holbrook Work Phone: [facility] Work Phone: Start: 11-27-2022 End: 11-27-[address] Oleksandr Holbrook Work Phone: [facility] Start: 11-03-2022 End: 11-03-[address] Oleksandr Holbrook Work Phone: [facility] Work Phone: Start: 11-03-2022 End: 11-03-[address] Oleksandr Holbrook Work Phone: [facility]-Laboratory, [place] Start: 09-19-2022 End: 09-19-[address] Oleksandr Holbrook Work Phone: [facility] Work Phone: Start: 09-19-2022 End: 09-19-[address] Oleksandr Holbrook Work Phone: [facility] Start: 09-01-2022 End: 09-01-[address] Oleksandr Holbrook Work Phone: [facility] Work Phone: Start: 09-01-2022 End: 09-01-[address] Oleksandr Holbrook Work Phone: [facility] Internal Medicine Start: 08-21-2022 End: 08-21-2022 ambulatory [facility] Work Phone: Start: 08-21-2022 End: 08-21-2022 [facility] Start: 04-24-2022 End: 04-24-[address] Oleksandr Holbrook Work Phone: [facility] Work Phone: Start: 04-24-2022 End: 04-24-[address] Oleksandr Holbrook Work Phone: [facility], [place] Start: 02-24-2022 End: 02-24-[address] Oleksandr Holbrook Work Phone: [facility]-Radiology, [facility] Start: 02-21-2022 End: 02-21-[address] Oleksandr Holbrook Work Phone: [facility] Internal Medicine Start: 02-20-2022 End: 02-20-[address] Oleksandr Holbrook Work Phone: [facility] Work Phone: Start: 02-20-2022 End: 02-20-[address] Oleksandr Holbrook Work Phone: [facility], [place] Start: 01-16-2022 End: 01-16-[address] Oleksandr Holbrook Work Phone: [facility] Internal Medicine Start: 12-17-2021 End: 12-17-[address] Oleksandr Holbrook Work Phone: [facility] Internal Medicine Start: 12-12-2021 End: 12-12-[address] Oleksandr Holbrook Work Phone: [facility]-Laboratory Start: 09-13-2021 End: 09-13-[address] Gloria James Work Phone: [facility]-Sleep Lab Start: 09-04-2021 End: 09-04-[address] Gloria James Work Phone: [facility] Start: 08-30-2021 End: 08-30-[address] Gloria James Work Phone: [facility]-Pulmonary Medicine [facility] Start: 08-22-2021 End: 08-22-[address] [facility] Start: 08-22-[address] Lou [facility] Start: 07-03-[address] Gloria [facility] Start: 07-02-2021 End: 07-02-[address] Gloria James Work Phone: [facility] Internal Medicine Start: 05-06-2021 End: 05-06-2021 Office outpatient visit 25 minutes Gloria James DO Work Phone: [facility] Start: 03-22-2021 End: 03-22-2021 Office outpatient visit 10 minutes Gloria James DO Work Phone: [facility] Start: 10-29-2020 End: 10-29-2020 Subsequent hospital visit by physician Zackary De Los Santos MD Work Phone: [facility] Comment on above: Family history of br east cancer; Family history of colon cancer; Family history of pancreatic cancer Start: 10-22-2020 End: 10-22-2020 Lab Order Gloria James DO Work Phone: [facility] Start: 08-02-2020 End: 08-02-2020 Office outpatient visit 25 minutes Gloria James [facility] Start: 07-24-2020 End: 07-24-2020 Annotation/Addendum lGoria James [facility] Start: 07-20-2020 End: 07-20-2020 Annotation/Addendum Gloria Jacob [facility] Start: 07-17-2020 End: 07-17-2020 Office outpatient visit 40 minutes Gloria James [facility] Start: 07-17-2020 Review Gloria James [facility] Internal Medicine Start: 03-30-2020 End: 03-30-2020 Annotation/Addendum Gloria James [facility] Start: 03-26-2020 End: 03-26-2020 Annotation/Addendum Gloria James [facility] Start: 12-14-2019 End: 12-14-2019 Phone Encounter Gloria Jacob [facility] [facility] Start: 11-25-2019 End: 12-05-2019 Phone Encounter [facility] Start: 09-30-2019 End: 09-30-2019 Office outpatient visit 15 minutes Gloria James [facility] Start: 06-27-2019 End: 06-27-2019 Office outpatient visit 15 minutes [facility] Start: 06-10-2019 End: 06-10-2019 Office outpatient visit 10 minutes Gloria James [facility] Start: 05-13-2019 End: 05-13-2019 Office outpatient visit 15 minutes [facility] Start: 05-09-2019 End: 05-09-2019 Annotation/Addendum [facility] Start: 04-27-2019 End: 04-27-2019 Office outpatient visit 25 minutes Gloria James [facility] Start: 05-27-2016 End: 05-27-2016 Patient encounter procedure Gloria James [facility] Start: 02-27-2016 End: 02-27-2016 Office outpatient visit 15 minutes Gloria James [facility] Start: 02-20-2016 End: 02-20-2016 Office outpatient visit 15 minutes Gloria Doss [facility] Start: 12-10-2015 End: 12-11-2015 Office outpatient visit 25 minutes Gloria D[facility] Start: 08-24-2015 End: 08-24-2015 Office outpatient visit 25 minutes Gloria Doss [facility] Start: 07-25-2015 End: 07-26-2015 Office outpatient visit 25 minutes Gloria Doss [facility] Start: 03-06-2015 End: 03-06-2015 Office outpatient visit 15 minutes Gloria James [facility] Start: 03-02-2015 End: 03-04-2015 Office outpatient visit 25 minutes Gloria James [facility] Start: 11-22-2014 End: 11-22-2014 Phone Encounter Gloria [facility]oss [facility] Start: 11-21-2014 End: 11-21-2014 Office outpatient visit 25 minutes Gloria James [facility] Start: 11-17-2014 End: 11-17-2014 Phone Encounter Gloria [facility]oss [facility] Start: 04-26-2014 End: 04-26-2014 Office outpatient visit 15 minutes Gloria Doss [facility] Start: 02-06-2014 End: 02-06-2014 Office outpatient visit 15 minutes Gloria James [facility] Start: 01-17-2014 End: 01-19-2014 Patient encounter procedure Gloria James [facility] Start: 12-21-2013 End: 12-21-2013 Patient encounter procedure Gloria Doss [facility] Start: 11-25-2013 End: 11-25-2013 Phone Encounter Gloria [facility] Start: 09-20-2013 End: 09-20-2013 Phone Encounter Gloria [facility]oss [facility] Start: 06-24-2013 End: 06-24-2013 Phone Encounter Gloria [facility]oss [facility] Start: 04-26-2013 End: 04-26-2013 Patient encounter procedure Gloria Doss [facility] Start: 03-18-2013 End: 03-18-2013 Phone Encounter Gloria [facility]oss [facility] Start: 06-16-2012 End: 06-16-2012 Patient encounter procedure Gloria James [facility] Start: 04-14-2012 End: 04-14-2012 Patient encounter procedure Gloria James [facility] Start: 2012 End: 2012 Phone Encounter Gloria James [facility] Start: 01-12-2012 End: 2012 Patient encounter procedure Gloria James [facility] Start: 10-22-2011 End: 10-23-2011 Patient encounter procedure Gloria James [facility] Start: 10-03-2011 End: 10-03-2011 Phone Encounter Gloria James [facility] Start: 10-03-2011 End: 10-03-2011 Patient encounter procedure Gloria James [facility] Start: 06-17-2011 End: 06-17-2011 Patient encounter procedure Gloria James [facility] Start: 05-02-2011 End: 05-02-2011 Lab Order Gloria James [facility] Start: 02-28-2011 End: 02-28-2011 Patient encounter procedure Gloria James [facility] Start: 02-28-2011 End: 02-28-2011 Patient encounter procedure Gloria James [facility] Start: 01-01-2011 End: 01-01-2011 Patient encounter procedure Gloria James [facility] Start: 06-26-2010 End: 06-26-2010 Phone Encounter Gloria James [facility] Start: 06-13-2010 End: 06-13-2010 Patient encounter procedure Gloria James [facility] Start: 05-28-2010 End: 05-28-2010 Patient encounter procedure Gloriakamille Olmoson [facility] Start: 01-04-2010 End: 01-04-2010 Patient encounter procedure Gloria James [facility] Start: 09-14-2009 End: 09-14-2009 Patient encounter procedure Gloria Olmoson [facility] Start: 02-05-2009 End: 02-05-2009 Office outpatient visit 15 minutes Gloria Doss [facility] Start: 11-06-2008 End: 11-06-2008 Phone Encounter Gloriakamille James [facility] Start: 11-05-2008 End: 11-06-2008 Historical Summary Gloria Doss [facility] Start: 11-03-2008 End: 11-05-2008 Patient encounter procedure Gloriakamille Olmoson [facility] Start: 02-11-2008 End: 02-11-2008 Patient encounter procedure Gloria [facility] Start: 12-22-2007 End: 12-23-2007 Patient encounter procedure Gloria James [facility] Start: 11-09-2007 End: 11-09-2007 Patient encounter procedure Gloria James [facility] Start: 11-09-2007 End: 11-09-2007 Historical Summary Gloria [facility] Start: 07-19-2007 End: 07-19-2007 Historical Summary Gloria James [facility] Start: 07-08-2007 End: 07-08-2007 Patient encounter procedure Gloria James [facility] Start: 07-05-2007 End: 07-05-2007 Historical Summary Gloria James [facility] Start: 06-03-2007 End: 06-03-2007 Patient encounter procedure Gloria James [facility] Procedures Date Procedure Procedure Detail Performing Clinician Start: 04-18-2025 X-ray of cervical spine Dr. Oleksandr Holbrook MD Work Phone: Start: 03-23-2025 X-ray of cervical spine Dr. Oleksandr Holbrook MD Work Phone: Start: 03-08-[address] Cory Holbrook MD Work Phone: Start: 03-08-2025 X-ray of cervical spine Dr. Oleksandr Holbrook MD Work Phone: Start: 03-07-[address] Oleksandr Holbrook MD Work Phone: Start: 03-07-2025 X-ray of cervical spine Dr. Oleksandr Holbrook MD Work Phone: Start: 03-07-2025 Cervical arthrodesis by anterior technique Dr. Oleksandr Holbrook MD Work Phone: Start: 02-23-2025 Methicillin resistant Staphylococcus aureus screening test Dr. Oleksandr Holbrook MD Work Phone: Start: 02-23-2025 Hepatitis A virus antibody, total measurement Dr. Oleksandr Holbrook MD Work Phone: Comment on above: Comment: The HAV total antibody assay de tects both IgG andIgM but does not differentiate between them. A negativeresult suggests susceptibility to infection. A positiveresult could be due to vaccination, previously resolvedinfection or active infection. Testing for HAV IgM shouldbe performed if active HAV infection is suspected. [facility] profiles that will automatically reflex positive HAVtotal antibody results to IgM (e.g., panel #[id number] HAVAntibody w/ Rfx).Performed at: [facility] [id number] Director: Raj Kinsey PhD, Phone: [phone] Start: 02-23-2025 Hepatitis C antibody measurement Dr. Oleksandr Holbrook MD Work Phone: Comment on above: Reactive: Presumptive evidence of antibo dies to HCV. Follow CDC recommendations for supplemental testing.Non-Reactive: Antibodies to HCV were not detected; does not exclude the possibility of exposure to HCVReactive Results are presumptive evidence of antibodies to HCV. Follow CDC recommendations for supplemental testing.Order confirmation testing: HCV Quant by PCR testing - HCVPCR #[id number] Non Reactive: < 0.8 Equivocal: >/= 0.8 to < 1.0 Reactive: >/= 1.0The CDC requires that a reactive/equivocal HCV antibody result be sent out for confirmation. HCV Quant by PCR testing. Start: 12-09-2024 MRI of cervical spine Dr. Oleksandr Holbrook MD Work Phone: Start: 10-13-2024 X-ray of cervical spine Dr. Oleksandr Holbrook MD Work Phone: Start: 11-16-2023 CT angiography of chest with contrast Dr. Oleksandr Holbrook Work Phone: Start: 09-14-2023 MRI of lumbar spine Dr. Oleksandr Holbrook Work Phone: Start: 09-02-2023 X-ray of lumbosacral spine Dr. Oleksandr Holbrook Work Phone: Start: 09-02-2023 X-ray of cervical spine Dr. Oleksandr Holbrook Work Phone: Start: 06-23-[address] Oleksandr Holbrook Work Phone: Start: 11-27-[address] Oleksandr Holbrook Work Phone: Start: 11-27-2022 MRI of bilateral breasts with contrast Dr. Oleksandr oHlbrook Work Phone: Start: 09-19-2022 Plain x-ray of pelvis and lower extremity Dr. Oleksandr Holbrook Work Phone: Start: 02-24-2022 Plain x-ray of pelvis and lower extremity Dr. Oleksandr Holbrook Work Phone: Start: 09-04-[address] Gloria James Work Phone: Start: 09-04-2021 MRI of bilateral breasts with contrast Dr. Gloria James Work Phone: Start: 07-03-2021 Radiography of sacrococcygeal spine Dr. Gloria James Work Phone: Start: 07-03-2021 X-ray of lumbar spine, two or three views Dr. Gloria James Work Phone: Start: 07-02-2021 End: 07-02-2021 Internal Medicine Office Visit Comments: See Note; NOTES: [facility] [place] [address] [place] [address] OFFICE VISIT Date of Service: 07/02/21 MR#: [id number] Acct: [id number] Name: JASMYNE FLANNERYTCHROSALIE MAYFIELD Rep #: [id number] : 1970 Provider: Dr. 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 Chief Complaint: Establish care Is patient in pain?: Yes (lower back and right hip ) Pain scale (1-10): 7 Allergies pseudoephedrine Allergy (Unknown, Verified 07/02/21 13:09) Other sumatriptan [From Imitrex] Adverse Reaction (Unknown, Verified 07/02/21 13:09) Swelling Medications sertraline 50 mg tablet 50 mg PO DAILY 08/22/20 [History Confirmed 07/02/21] baclofen 10 mg tablet 10 mg PO BID PRN #60 tab 07/02/21 [Rx Confirmed 07/02/21] estradiol 0.5 mg tablet 0.5 mg PO DAILY 07/02/21 [History Confirmed 07/02/21] levothyroxine 137 mcg tablet 137 mcg PO DAILY 07/02/21 [History Confirmed 07/02/21] propranolol 20 mg tablet 20 mg PO BID #60 tab 07/02/21 [Rx Confirmed 07/02/21] Post menopausal: Yes PFSH Medical History (Updated 07/02/21 @ 14:[address] Oleksandr Holbrook MD) Acne Acquired hypothyroidism Anxiety Back pain Cervical radiculopathy Change in skin mole Chest pain Chronic back pain Chronic GERD Constipation Contact dermatitis Dysthymic Fatigue Foot pain Hemorrhoids Hip pain Hip pain History of iron deficiency History of pneumonia Hyperglyceridemia Hypothyroidism Iliotibial band syndrome of right side Intractable migraine Migraine Migraine Mitral valve prolapse Myalgia Neoplasm of uncertain behavior of skin Numbness and tingling Pain in thoracic spine Perioral dermatitis Post-menopausal Sciatica Snoring SOB (shortness of breath) Vitamin D deficiency Weight gain Surgical History (Updated 07/02/21 @ 13:16 by Anca Hill) History of cholecystectomy History of colonoscopy History of hysterectomy Hx of tubal ligation Family History (Updated 07/02/21 @ 13:15 by Anca Hill) Grandmother Colon cancer Diabetes Breast cancer Grandfather Heart disease Mother Thyroid disorder Sister Thyroid disorder Father Hyperlipemia Uncle Cancer pancreatic Social History (Updated 07/02/21 @ 13:17 by Anca Hill) Smoking Status: Never smoker alcohol intake: current alcohol intake frequency: holidays/special occasions only substance use type: does not use what type of physical activity do you participate in: none HPI HPI Chief Complaint: Establish care Details: ROSALIE GONZALES, is a 51 F who presents to the office today to establish care. Has several concerns. [facility]. She reports low back pain which has been ongoing for years. Lower back and her coccyx area. Coccyx area is said to be sharp and worse when she sits. Has been having to sit differently due to pain. Low back pain cuts across her lower back, no numbness or tingling down her extremities but pain occasionally radiates down her thighs. No change in bowel or bladder habit. Was seen by [facility] about a year ago, she states that she had some injections which were not helpful. She also states that she had imaging at that time but does not have the specific details. History of migraine and has been on Topamax for years for prophylaxis. For the most part, she has had reduced frequency and intensity and is currently not on an abortive medication. She however states that she has had word finding difficulties which has worsened lately. Initially attributed this to getting older but was concerned about this. History of hypothyroidism on levothyroxine. She states that she has had troubles maintaining her levels however, takes levothyroxine at night and takes it with her other medications. ROS Const Constitutional: No body ache, chills, excessive sweating, fatigue, fever(s), frequent falls, headache(s), snoring, weakness, weight change, sleep problems or change in appetite Eyes Eyes: No blurry vision, change in vision, eye pain or Light sensitivity ENT ENT: No abnormal hearing, ear or mastoid pain, tinnitus, nasal congestion, headache(s), neck pain or sore throat Resp Respiratory: No cough, shortness of breath, snoring or wheezing Cardio Cardiology: No chest pain at rest, chest pain with exertion, excessive sweating, shortness of breath, dyspnea on exertion, lightheadedness, orthopnea or palpitations Gastro GI: No abdominal pain, change in bowel habits, constipation, cramping, diarrhea, nausea/dyspepsia or vomiting Genitourinary-Female: No burning urination, painful urination, urinary incontinence, urinary frequency, abnormal vaginal bleeding or pelvic pain Musc Musculoskeletal: No abnormal gait, joint pain, back pain, limited range of motion, neck pain, numbness or tingling Skin Skin: No dry skin, redness, lesions, itchy eyes, rash or wounds Neuro Neurology: No abnormal gait, abnormal hearing, abnormal speech, dizziness, weakness, frequent falls, headache(s), memory loss, numbness or tingling Psych Psychiatric: No anxiety, No change in appetite, No depression, No memory loss and No Thoughts of harming yourself/Others Endo Endocrine: No cold intolerance, excessive sweating, fatigue, flushing, heat intolerance, increased thirst/drinking, increased hunger or weight change Aller/Imm Allergy/Immunologic: No itchy eyes, seasonal allergy symptoms, hives or wheezing Zaid/Lymp Hematologic/Lymphatic: No easy bleeding, easy bruising or enlarged lymph nodes Exam Const General: cooperative, comfortable and no acute distress Orientation: alert, awake and oriented x3 [facility] Head: normal to inspection, normocephalic and atraumatic Ears: hearing grossly normal bilaterally Neck Neck: normal visual inspection, full ROM, no lymphadenopathy and supple Neck mass: No Thyroid: thyroid normal Resp Effort Inspection: normal respiratory effort and able to speak in complete sentences Auscultation: Bilateral: Clear to Auscultation Cardio Rate: regular rate Rhythm: regular rhythm Heart Sounds: S1 normal and S2 normal GI Palpation: soft (Nontender, no palpable organomegaly) Neuro General: patient alert, patient awake, patient oriented x3, moves all extremities and CN's II-XI intact bilaterally Extrem General: no clubbing, cyanosis or edema Psych Appearance: grossly normal Mental Status: mental status grossly normal Mood: congruent mood Affect: normal affect Coding Level of Care Code Off vis,new,level 4 Diagnoses Chronic back pain M54.50; G89.29 Back pain laterality: bilateral Back pain location: low back pain Sciatica presence: without sciatica Migraine G43.709 Intractability: not intractable Migraine type: chronic without aura Status migrainosus presence: without status migrainosus Hypothyroidism E03.9 Change in skin mole D22.9 Assessment and Plan Assessment and Plan (1) Chronic back pain: Status: Chronic Qualifiers: Back pain laterality: bilateral Back pain location: low back pain Sciatica presence: without sciatica Qualified Code(s): M54.50 - Low back pain, unspecified; G89.29 - Other chronic pain Orders: Orders: Sacrum-Coccyx min 2 Views Today Lumbar Spine 2 or 3 Views Today Plan - Dr. Oleksandr Holbrook MD: Lengthy discussion had with patient about chronic back pain. Straight leg raise test negative. Imaging ordered and referral to physical therapy was discussed if no significant concerns are noted. Prescription for baclofen as needed sent. Topical NSAIDs also discussed/recommended. She voiced understanding. (2) Migraine: Status: Chronic Qualifiers: Intractability: not intractable Migraine type: chronic without aura Status migrainosus presence: without status migrainosus Qualified Code(s): G43.709 - Chronic migraine without aura, not intractable, without status migrainosus Plan - Dr. Oleksandr Holbrook MD: Chronic. Frequency and intensity well controlled on Topamax however as above, having word finding difficulties. She was advised to taper off. Will start on propranolol, possible side effects discussed. Follow-up in a month or sooner if needed. She voiced understanding. (3) Hypothyroidism: Status: Chronic Orders: Orders: Comprehensive Metabolic Profil Today Lipid Profile Today Thyroid Stim Hormone (TSH) Today CBC W/Diff, Automated Today Plan - Dr. Oleksandr Holbrook MD: As above, not taking medication appropriately. She was advised to take it in the morning on an empty stomach and wait at least 30 minutes to an hour prior to taking anything else. She voiced understanding. (4) Change in skin mole: Status: Acute Orders: Referrals: Dermatology Plan - Dr. Oleksandr Holbrook MD: Referred to dermatology. This note was generated with [employer] dictation software. It may contain incorrect words, spelling, and punctuation that were not noted in checking the note before signing. Plan Details Other Medications: New: baclofen 10 mg PO BID PRN 60 tabs 2RF muscle spasm propranolol 20 mg PO BID 60 tabs 1RF Discontinued: topiramate (Topamax) Discontinued Reason: Discontinued by PCP/other physicians 25 mg PO DAILY Other Orders: Orders: Sacrum-Coccyx min 2 Views Today M54.9 Lumbar Spine 2 or 3 Views Today M54.9 07/02/21 1616 <Electronically signed by Oleksandr Holbrook MD> Date Oleksandr Rao Signature: Date (if applicable) CC: Gloria James DO Work Phone: Start: 02-13-2021 End: 02-13-2021 Pulmonary Visit Report Comments: See Note; NOTES: [facility] [address] [place] [address] OFFICE VISIT Date of Service: 02/13/21 MR#: [id number] Acct: [id number] Name: ROSALIE RANDHAWA Rep #: [id number] : 1970 Provider: Dr. Frederick Wallace MD Age/Sex: 51/F Location: [facility] Status: Signed Assessment and Plan Assessment and Plan (1) CALI (obstructive sleep apnea): Status: Acute (2) Obesity (BMI 30.0-34.9): Status: Chronic Plan - Dr. Frederick Wallace MD: Clinical suspicion at home sleep study grossly underestimates AHI. However, patient appears to be responding well to therapy. Stressed to the patient that ideally she would use her mask on every night. Given less than optimal compliance, will bring patient back for an evaluation in 3 months. Patient has good compliance, annual follow-ups would be appropriate. Did stressed to the patient the role of weight loss and the overall disease plan of care. Patient voiced understanding. Continue current therapy. Encourage better compliance. Plan Details Follow Up: 3 Months (CSM) HPI 3 M FU Details: Patient is a 51-year-old female, currently under the care of Dr. James, who presents for evaluation secondary to obstructive sleep apnea. Since last visit, patient denies any ER visits or hospitalizations. Patient was placed on prednisone secondary to pain issues, but no breathing issues. Patient is not currently on inhalers and has no respiratory complaints. Patient is not reporting any cough, sinus congestion or allergy symptoms. Patient reports no change in her exercise tolerance compared to previous visit. Patient reports that she has been becoming adjusted to her CPAP. Patient uses a nasal pillow interface and states that she has been tolerating well. Patient will occasionally have some soreness of her nose, but has not developed any open ulcers or epistaxis. Patient states that she now has a love-hate relationship with her mask. Patient feels significantly improved sleep efficiency when she wears her mask and feels she is benefiting from therapy. Patient states that she will occasionally wake up and find it lying next to her but feels that it has made a significant improvement in her sleep quality. Patient states her weight is relatively unchanged. Patient states her barrier to weight loss includes chronic pain issues, but hopes that with better sleep she will be able to increase activity. Review of systems otherwise negative from a constitutional, HEENT, respiratory, cardiovascular, GI, genitourinary, musculoskeletal, skin, neurologic, psychiatric and hematologic system unless stated above. Testing personally reviewed with the patient Unattended PSG (10/08/2020): Total AHI of 5.3 with 0% of the time spent less than 89% Compliance report (February 2021): Attempted therapy 60% of the time, but achieved greater than 4 hours only 43% of the time for an average of 5 hours 40 minutes on AutoSet with a median pressure of 9.6 cm of water, residual AHI of 1 and well-controlled leak. Intake Vital Signs 02/13/21 05:45 Height 5 ft 4 in Weight: 83.915 kg BMI 31.7 BP 113/80 Blood Pressure Location Rt brachial Position Sitting Respiration 16 Pulse 105 H Pulse Source Monitor Temp 36.3 C L Temperature Source Tympanic Pulse Oximetry (%) 97 Oxygen Delivery Method room air Intake Visit Reasons: 3 M FU Allergies pseudoephedrine Allergy (Unknown, Verified 09/27/20 12:30) Other sumatriptan [From Imitrex] Adverse Reaction (Unknown, Verified 09/27/20 12:30) Swelling Medications estradiol 1 g VAGINAL QWEEK 08/22/20 [History Confirmed 02/13/21] levothyroxine 150 mcg tablet 150 mcg PO DAILY 08/22/20 [History Confirmed 02/13/21] naftifine 1 % topical cream 1 applic TOPICAL DAILY 08/22/20 [History Confirmed 02/13/21] omeprazole 20 mg tablet,delayed release 20 mg PO DAILY 08/22/20 [History Confirmed 02/13/21] sertraline 50 mg tablet 50 mg PO DAILY 08/22/20 [History Confirmed 02/13/21] topiramate 25 mg tablet 25 mg PO DAILY 08/22/20 [History Confirmed 02/13/21] [facility] Medical History (Updated 02/13/21 @ 13:[address] Frederick Wallace MD) Acne Acquired hypothyroidism Anxiety Back pain Cervical radiculopathy Chest pain Chronic GERD Constipation Contact dermatitis Dysthymic Fatigue Foot pain Hemorrhoids Hip pain Hip pain History of iron deficiency History of pneumonia Hyperglyceridemia Iliotibial band syndrome of right side Intractable migraine Migraine Mitral valve prolapse Myalgia Neoplasm of uncertain behavior of skin Numbness and tingling Pain in thoracic spine Perioral dermatitis Post-menopausal Sciatica Snoring SOB (shortness of breath) Vitamin D deficiency Weight gain Surgical History History of cholecystectomy History of hysterectomy Hx of tubal ligation Family History Other Cancer Colon cancer Social History (Updated 09/27/20 @ 13:[address] Frederick Wallace MD) Smoking Status: Never smoker Review of Systems Resp Respiratory: Yes as per HPI Exam Const Constitutional: Positive conversant, cooperative, in no acute respiratory distress, healthy appearing, well developed, well nourished, good hygiene and obese Head Head: Yes normocephalic, Yes atraumatic and No cyanosis of lips/distal nose Eyes Eye: Positive clear conjunctiva; Negative nystagmus, scleral abnormality or cataract present Ears Ear: Positive hearing normal and external ears normal; Negative hard of hearing Nose Nose: Yes external nose normal, No nasal polyp and Yes septum normal Mouth Mouth: Positive oral mucosae normal, no lesions and good dentition; Negative oral thrush present or post nasal drip Mallampati Score: II: Mallampati Score Neck Neck: Positive normal visual inspection, full ROM and trachea midline; Negative lymphadenopathy or JVD Chest Wall Chest: Positive normal inspection of the chest and symmetric chest movement; Negative crepitus or tenderness Resp lung sounds: Positive clear to auscultation, good air exchange and normal expiratory time; Negative wheezes, wheeze present on forced exhalation, rhonchi, rales, dullness or use of accessory muscles Cardio Cardiac: Positive regular rate, regular rhythm, S1 normal and S2 normal; Negative murmur, rub or gallop GI GI: Positive normal to inspection, normal bowel sounds and obese; Negative distended, ascites or epigastric tenderness Genitourinary: Positive deferred Musc Musculoskeletal: Positive steady gait; Negative using an assistive device for ambulation, kyphosis or scoliosis Skin Pulmonary Skin Exam: Positive intact; Negative lesion, rash, ulcers or erythema Pulses Pulse: Yes radial pulses present Extremities Extremities: Yes capillary refill normal, No clubbing, No cyanosis and No edema Neuro Neurologic: Yes no focal neuro deficits, Yes conversant, Yes cooperative, Yes normal cognition, Yes normal coordination, Yes normal concentration and Yes understands questions Lymph Lymphatic: No lymphadenopathy Psych Appearance: Positive grossly normal Mental Status: Positive mental status grossly normal Mood: Positive congruent mood Affect: Positive normal affect Coding Level of Care Code Off vis,est,level 3 Diagnoses CALI (obstructive sleep apnea) G47.33 Obesity (BMI 30.0-34.9) E66.9 02/13/21 1348 <Electronically signed by Frederick Wallace MD> Date Frederick Wallace MD Cosigner Signature: Date (if applicable) CC: DO Gloria Marsh DO Work Phone: Start: 09-27-2020 End: 09-27-2020 Pulmonary Visit Report Comments: See Note; NOTES: [facility] [place] [address] [place] [address] OFFICE VISIT Date of Service: 09/27/20 MR#: [id number] Acct: [id number] Name: ROSALIE GONZALES Rep #: [id number] : 1970 Provider: Dr. Frederick Wallace MD Age/Sex: 50/F Location: [facility] [place] Status: Signed Assessment Plan Problems 1. Hypersomnia G47.10 2. Obesity (BMI 30.0-34.9) E66.9 Plan High clinical suspicion for obstructive sleep apnea given history. Patient does not qualify for an in-house study given lack of comorbidities. A home sleep study will be ordered. Patient will be i nitiated on therapy as indicated. Did encourage weight loss and the overall disease plan of care. Patient voiced understanding. Sleep work-up. Orders Orders: Unattended Sleep Study Today G47.10 Plan Detail Follow Up 3 Months ([facility]) HPI S.O.B., Snoring: Chief Complaint: Tired all the time Details: Patient is a 50-year-old female, currently under the care of Dr. James, who presents for evaluation secondary to being tired all the time. Patient reports that she recently had an extensive cardiac work-up that was unremarkable. Patient states that she had complained of some chest tightness leading to extensive work-up. Patient states that she presents today mainly because of being tired all the time. Patient reports that over the last 2 to 3 years she is starting to have more more problems with being tired all the time. Patient states that she has a problem with migraine headaches and these have also been worsened. Patient states that she tends to sleep between 6 and 8 hours per night, but consistently wakes up with headache that lasts through the day. Patient feels tired and takes frequent naps. Patient also reports a significant weight gain in the last year. Patient states that her thyroid was recently checked and is doing well. Patient reports that she has been given an inhaler when she was younger secondary to shortness of breath associated with colds. Patient did not believe these significantly helped. STOP-BANG Assessment: 1. Do you snore? y 2. Are you frequently tired during the day? y 3. Have you been observed gasping or choking while asleep? y 4. Do you have high blood pressure? n 5. BMI - greater than 35kg/m2? n 6. Age - over 50 years old? y 7. Neck Circumference - greater than 37 cm for females or 40 cm for males? y 8. Gender - male? n Total STOP-BANG score = 5 which indicates high risk for obstructive sleep apnea (yes to 3 or more questions = high risk of sleep apnea). Documentation reviewed 18 pages of documentation were reviewed prior to the office visit. This did include documentation from primary care physician reporting patient has been complaining of being tired all the time. Patient is unclear if this was related to medication effect, but is also been having some chest heaviness. Patient is not currently on any inhalers. Patient does have an elevated BMI of 30.08. Patient had a home sleep study ordered, along with echocardiogram and stress test. Testing personally reviewed with the patient Echocardiogram (08/01/2020): EF of 65% with impaired relaxation. No significant atrial enlargement and unable to estimate pulmonary artery pressure. No intra-atrial shunt appreciated. Stress report: Reached a peak heart rate of 169 bpm and a met capacity of 9.2 and a noted EF of 70% with no evidence of significant ischemia. Intake Vital Signs 09/27/20 Height 5 ft 4 in 09/27/20 Weight: 81.193 kg 09/27/20 BMI 30.7 09/27/20 BP 118/78 09/27/20 Blood Pressure Location Lt brachial 09/27/20 Position Sitting 09/27/20 Respiration 16 09/27/20 Pulse 93 09/27/20 Pulse Source Monitor 09/27/20 Temp 36.3 C L 09/27/20 Temperature Source Tympanic 09/27/20 Pulse Oximetry (%) 98 09/27/20 Oxygen Delivery Method room air Intake Visit Reasons: S.O.B., Snoring Accompanied by: Allergies pseudoephedrine Allergy (Unknown, Verified 09/27/20 12:30) Other sumatriptan [From Imitrex] Adverse Reaction (Unknown, Verified 09/27/20 12:30) Swelling Medications estradiol 1 g VAGINAL QWEEK 08/22/20 [History Confirmed 09/27/20] levothyroxine 150 mcg tablet 150 mcg PO DAILY 08/22/20 [History Confirmed 09/27/20] naftifine 1 % topical cream 1 applic TOPICAL DAILY 08/22/20 [History Confirmed 09/27/20] omeprazole 20 mg tablet,delayed release 20 mg PO DAILY 08/22/20 [History Confirmed 09/27/20] sertraline 50 mg tablet 50 mg PO DAILY 08/22/20 [History Confirmed 09/27/20] topiramate 25 mg tablet 25 mg PO DAILY 08/22/20 [History Confirmed 09/27/20] [facility] Medical History Acne (Acute) Acquired hypothyroidism (Acute) Anxiety (Acute) Back pain (Acute) Cervical radiculopathy (Acute) Chest pain (Acute) Constipation (Acute) Contact dermatitis (Acute) Dysthymic (Acute) Fatigue (Acute) Foot pain (Acute) Hemorrhoids (Acute) Hip pain (Acute) Hip pain (Acute) History of iron deficiency (Acute) History of pneumonia (Acute) Hyperglyceridemia (Acute) Iliotibial band syndrome of right side (Acute) Intractable migraine (Acute) Migraine (Acute) Mitral valve prolapse (Acute) Myalgia (Acute) Neoplasm of uncertain behavior of skin (Acute) Numbness and tingling (Acute) Pain in thoracic spine (Acute) Perioral dermatitis (Acute) Post-menopausal (Acute) SOB (shortness of breath) (Acute) Sciatica (Acute) Snoring (Acute) Vitamin D deficiency (Acute) Weight gain (Acute) Chronic GERD (Chronic) Surgical History History of cholecystectomy (Acute) History of hysterectomy (Acute) Hx of tubal ligation (Acute) Family History Other Cancer Colon cancer Social History (Updated 09/27/20 @ 13:[address] Frederick Wallace MD) Smoking Status: Never smoker Review of Systems Resp Respiratory: Yes as per HPI Exam Const Constitutional: Positive conversant, cooperative, in no acute respiratory distress, healthy appearing, well developed, well nourished, good hygiene and obese Head Head: Yes normocephalic, Yes atraumatic, No cyanosis of lips/distal nose Eyes Eye: Positive clear conjunctiva; negative nystagmus, scleral abnormality or cataract present Ears Ear: Positive hearing normal and external ears normal; negative hard of hearing Nose Nose: Yes external nose normal, No nasal polyp, Yes septum normal Mouth Mouth: Positive oral mucosae normal, no lesions and good dentition; negative oral thrush present or post nasal drip Mallampati Score: II: Mallampati Score Neck Neck: Positive normal visual inspection, full ROM and trachea midline; negative lymphadenopathy or JVD Chest Wall Chest: Positive normal inspection of the chest and symmetric chest movement; negative crepitus or tenderness Resp lung sounds: Positive clear to auscultation, good air exchange and normal expiratory time; negative wheezes, wheeze present on forced exhalation, rhonchi, rales, dullness to percussion or use of accessory muscles Cardio Cardiac: Positive regular rate, regular rhythm, S1 normal and S2 normal; negative murmur, rub or gallop GI GI: Positive normal to inspection, normal bowel sounds and obese; negative distended, ascites or epigastric tenderness Genitourinary: Positive deferred Musc Musculoskeletal: Positive steady gait; negative using an assistive device for ambulation, kyphosis or scoliosis Skin Pulmonary Skin Exam: Positive intact; negative lesion, rash, ulcers or erythema Pulses Pulse: Yes radial pulses present Extremities Extremities: Yes capillary refill normal, No clubbing, No cyanosis, No edema Neuro Neurologic: Yes no focal neuro deficits, Yes conversant, Yes cooperative, Yes normal cognition, Yes normal coordination, Yes normal concentration, Yes understands questions Lymph Lymphatic: No lymphadenopathy Psych Appearance: Positive grossly normal Mental Status: Positive mental status grossly normal Mood: Positive congruent mood Affect: Positive normal affect Coding Level of Care Code Off vis,new,level 3 Diagnoses Hypersomnia G47.10 Obesity (BMI 30.0-34.9) E66.9 09/27/20 1316 <Electronically signed by Frederick Wallace MD> Date Frederick Wallace MD Cosigner Signature: Date (if applicable) CC: Dr. Gloria James, DO Gloria James DO Work Phone: Start: 08-01-2020 End: 08-01-2020 Stress Report Comments: See Note; NOTES: [facility] [address] [place] [address] MR#: [id number] Acct: [id number] Name: ROSALIE RANDHAWA Rep #: [id number] : 1970 50 From: Xiomara Flowers MD Primary Care: Dr. Gloria James, Status: REG CLI Referring Dr: Gloria James DO Sex: F C Stress Test Report Date: 08/01/2020 Procedure: Exercise tolerance test/imaging study Indications: Chest pain low Consent: Per the patient Procedure: The patient exercised on a Frederick protocol for 7 minutes and 30 seconds achieving a peak heart rate of 169 bpm (99% predicted maximal heart rate) with a peak blood pressure 118/70 mmHg and a peak MET capacity of 9.2 METs. The baseline ECG demonstrated normal sinus rhythm. The peak exercise ECG demonstrated no significant ischemic changes. EKG during recovery revealed no significant ischemic changes [There were no cardiac dysrhythmias pretest, during exercise, or recovery]. The functional capacity was considered normal for age. There was [no complaint of chest discomfort during exercise or recovery]. The examination was discontinued secondary to shortness of breath, achieving target heart rate. Impression: 1. Technically adequate (percent predicted maximal heart rate greater than 85%) exercise tolerance test 2. Stress test is negative for exercise-induced EKG changes of ischemia 3. The test test is negative for exercise-induced chest pain 4. Functional capacity is normal for age 5. Nuclear images pending Myocardial perfusion imaging study: Technique: The patient was injected with 11.1 mCi of technetium 99m Cardiolite and subsequently rest SPECT Cardiolite nuclear imaging was obtained in the horizontal long, vertical long, and short axis views. The patient exercised on a Frederick protocol. Please see above for details. The patient was injected with 33.3 mCi of technetium 99m Cardiolite and subsequently stress SPECT Cardiolite nuclear imaging was obtained in the horizontal long, vertical long, and short axis views. A gated Cardiolite study at peak stress was obtained. Interpretation: Rest and stress SPECT Cardiolite nuclear imaging status post realignment, normalization, and attenuation correction, demonstrates overall normal myocardial radioisotope uptake. The gated Cardiolite study demonstrates no significant regional wall motion abnormalities. The reported LVEF is greater than 70%. Impression: 1. There is no evidence of significant ischemia or infarction. 2. The gated Cardiolite study reports an LVEF of greater than 70%. This note was generated with Dragon dictation software. It may contain incorrect words, spelling, and punctuation that were not noted in checking the note before signing. 08/01/20 1353 <Electronically signed by Xiomara Flowers MD> Date Xiomara Flowers MD CC: Dr. Gloria James, Date Dictated: 08/01/20 1343 Date Transcribed: 08/01/20 1343 Boiler Tube Reamer: NN Signed Gloria James Start: 08-01-2020 End: 08-01-2020 Echo Complete Comments: See Note; NOTES: [facility] [address] [place] [address] Echo Complete 08/01/20 0856 MR#: [id number] Acct: [id number] Name: ROSALIE RANDHAWA Rep #: [id number] : 1970 50 From: Juanpablo Gomez MD Attending Dr: Dr. Gloria James, Status: R EG CLI Ordering Dr: Gloria James DO Date: 08/01/20 Location: [facility] Sex: F C Admitted: Reason For Study: Chest Pain Procedure This was a 2D Doppler, Color Flow transthoracic echocardiogram. Contrast injection was performed. Exam performed in department. Left Ventricle Normal LV size. Left ventricular systolic function is normal. The estimated ejection fraction is 65 %. Transmitral doppler flow suggestive of impaired relaxation of left ventricle. No regional wall motion abnormalities noted. Right Ventricle Normal RV size. Normal systolic function. Atria Normal left atrium. Normal right atrium. No doppler evidence for ASD. Bubble contrast study negative for right to left interatrial shunt. Mitral Valve There is no mitral annular calcification. Mild diffuse mitral valve thickening. Equivocal mitral valve prolapse. Trivial mitral valve insufficiency. Tricuspid Valve Normal tricuspid valve. Trivial tricuspid valve insufficiency. Unable to estimate RV systolic pressure due to insufficient tricuspid regurgitant envelope. Aortic Valve Trisinus/trileaflet aortic valve. Normal aortic valve. Pulmonic Valve The pulmonic valve is not well visualized. Trivial pulmonic valve insufficiency. Great Vessels Normal sized aortic root. Pericardium/Pleural No pericardial effusion. Medication Performed a rapid injection of agitated mix of 9 cc saline and 1cc air to assess for atrial septal defect. MMode/2D Measurements Calculations LVIDd: 4.0 cm IVSd: 0.86 cm Ao root diam: 3.0 cm LVIDs: 2.6 cm LVPWd: 0.79 cm RVDd: 2.8 cm FS: 36.0 % LAV(MOD-bp): 29.5 ml LVAd ap4: 19.2 cm2 SV(MOD-sp4): 28.2 ml LAV(MOD-bp) Indexed: 16.0 ml/m2 EDV(MOD-sp4): 44.8 ml LAV(MOD-sp2): 32.0 ml EDV(sp4-el): 46.1 ml LAV(MOD-sp4): 25.0 ml LVAs ap4: 10.3 cm2 ESV(MOD-sp4): 16.6 ml ESV(sp4-el): 17.0 ml EF(MOD-sp4): 62.9 % EF(sp4-el): 63.1 % SV(sp4-el): 29.1 ml LA A4 area: 12.7 cm2 LA dimension(2D): 2.9 cm RA A4 area: 8.5 cm2 Doppler Measurements Calculations MV E max ramos: 51.8 cm/sec Lat Peak E' Ramos: 7.9 cm/sec Med Peak E' Ramos: 7.9 cm/sec MV A max ramos: 71.7 cm/sec E/E' lat: 6.6 E/E' med: 6.6 MV E/A: 0.72 Ao V2 max: 107.8 cm/sec LV V1 max: 112.2 cm/sec PA V2 max: 70.5 cm/sec Ao max P.7 mmHg LV V1 max P.0 mmHg Ao V2 mean: 82.5 cm/sec Ao mean P.9 mmHg Ao V2 VTI: 17.5 cm Interpretation Summary Left ventricular systolic function is normal. The estimated ejection fraction is 65 %. Mild diffuse mitral valve thickening. Equivocal mitral valve prolapse. Trivial mitral valve insufficiency. Trivial tricuspid valve insufficiency. Trivial pulmonic valve insufficiency. Unable to estimate RV systolic pressure due to insufficient tricuspid regurgitant envelope. Transmitral doppler flow suggestive of impaired relaxation of left ventricle Bubble contrast study negative for right to left interatrial shunt. _ Ordering Physician: Gloria James Referring Physician: Gloria James Performed By: Charlotte Brink, DANNY, RVT 08/01/20 1115 Date Juanpablo Gomez MD CC: Dr. Gloria James DO Date Dictated: 08/01/20 0856 Date Transcribed: 08/01/20 1115 Boiler Tube Reamer: Signed Gloria James Work Phone: Start: 07-19-2020 End: 07-20-2020 Hips B/L min 2 views w/ Pelvis Comments: See Note; NOTES: [facility] [address] [place] [address] Hips B/L min 2 views w/ Pelvis MR#: [id number] Acct: [id number] Name: ROSALIE RANDHAWA Rep #: [id number] : 1970 F 50 From: Devon Zaldivar PCP: Dr. Marcello Mauro MD Status: DEP AMB Study: Hips B/L min 2 views w/ Pelvis Date of Exam: 0 07/19/20 Exam# [id number] Ordering Dr: Gloria James DO STUDY: X-RAY - PELVIS AND BILATERAL HIPS REASON FOR EXAM: Chronic bilateral hip pain, right greater than left, no specific injury. TECHNIQUE: AP view of the pelvis.? 2 views of the right hip, and 2 views of the left hip were obtained. COMPARISON: None. FINDINGS: Normal visualized soft tissue structures. Normal bilateral iliac wings, sacroiliac joints and visualized sacrum. 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 Normal bilateral superior and inferior pubic rami. Normal pubic symphysis. Normal bilateral ischial tuberosities. Normal visualized right femoral head. Normal right acetabulum. Normal right hip joint. Normal visualized left femoral head. Normal left acetabulum. Normal left hip joint. RAD/Hips B/L min 2 views w/ Pelvis IMPRESSION: Normal x-ray examination of the bilateral hips. Electronically Signed: Devon Ramírez MD at 11:15 EST Tel , Service support , CC: Dr. Marcello Mauro MD; Dr. Gloria James DO Boiler Tube Reamer: Signed Gloria James Work Phone: Start: 08-02-2016 End: 08-04-2016 SCREENING MAMM (CAD), BILAT Comments: See Note; NOTES: [facility] [address] [place] [address] Verdana 4d SCREENING MAMM (CAD), BILAT MR#: [id number] Acct: [id number] Name: ROSALIE GONZALES Rep #: [id number] : 1970 F 46 From: Isacc Wills MD PCP: Evangelina Villanueva DO Status: PRE CLI Study: SCREENING MAMM (CAD), BILAT Date of Exam: 08/02/16 Exam# [id number] Ordering Dr: Camryn Clifton MD MAMMOGRAPHY - BILATERAL SCREENING REASON FOR EXAM: Female, 46 years old. Routine annual screening examination. PERTINENT HISTORY: Non-contributory. TECHNIQUE: Digital bilateral breast veronica (3D mammographic acquisition) in the CC and MLO projections. 2-D mediolateral oblique (MLO) and craniocaudad (CC) views of both breasts were obtained. CAD: Full Field Digital Mammography with Computer Added Detection was performed. COMPARISON: Comparison is made with prior study dated September 23, 2013 and November 11, 2010. FINDINGS: Breast Composition: The breasts are heterogeneously dense, which may obscure small masses. There are no dominant masses or suspicious calcifications. No other significant abnormalities are identified. There has been no significant change since the prior study. HPBI/SCREENING MAMM (CAD), BILAT IMPRESSION: Stable bilateral screening mammogram. Yearly follow-up mammogram recommended. (A) ASSESSMENT CATEGORY: BIRADS Category 1: Negative. A letter regarding these results will be sent to the patient by the facility within 30 days. Approximately 10% of breast cancers are not detected by mammography. A normal mammogram should not delay biopsy of a clinically suspicious abnormality. [id number] Electronically Signed: Isacc Wills MD at 8:08 EST Tel [phone], Service support [phone], CC: Camryn Clifton MD; Evangelina Villanueva DO Boiler Tube Reamer: Signed Gloria James Start: 07-29-2016 End: 07-29-2016 PT D/C of Non Returning Pt (1) Comments: See Note; NOTES: [facility] [address] [place] [address]. [address] [place] [address] Fax REHABILITATION SERVICES DISCHARGE SUMMARY MR#: [id number] Acct: [id number] Name: ROSALIE GONZALES Rep #: [id number] : 1970 46 From: Elvis Sandy DPT Referring Dr.: Evangelina Villanueva DO Status: REG RCR Insurance: [facility] HP - Discharge Summary (1) - Patient Information ROSALIE GONZALES was seen in my office for initial evaluation on 06/16/16. The following Plan of Care was established for this patient: Initial Frequency: 1-2x /Week Initial Duration: 4 Weeks - Anticipated Interventions Patient/Client Instruction: Educate patient on: Condition, Plan of Care, Risk Factors, Benefits of Fitness Program For the Purpose of:: To reduce risk of recurrence, To improve safety, To improve health and function, To foster healthy habits, To improve decision making, To facilitate caregiver knowledge, To improve self management, To prevent re-injury, To improve ability to perform tasks related to life management Therapeutic Exercise to Include: Strength training, Power training, Endurance training, Postural training, Flexibilty training, Passive ROM, Active ROM, Dynamic Lumbar Stabilization, Damian Exercises For the Purpose of:: To decrease pain, To increase ROM, To improve nutrient delivery to tissue, To increase oxygenation perfusion, To improve performance and independence with ADL's, To decrease level of supervision to perform tasks, To improve health of tissue, To decrease soft tissue restriction, To increase flexibility/ROM, To improve endurance Manual Therapy Techniques to Include: Mobilization, Manipulation, Passive ROM, Functional dry needling, Soft tissue mobilization For the Purpose of:: To decrease pain, To decrease swelling/inflammation, To increase ROM IF ES: Yes Cryotherapy (ice pack, ice massage): Yes Thermo therapy (hot pack): Yes Ultrasound (thermal/non thermal): Yes For the Purpose of:: To decrease pain, To increase ROM This patient was last seen in our office 06/16/16. Pertinent comments regarding their Physical therapy will appear below: Pt. was seen for initial evaluation of LBP. She did not return for any follow up treatment and will be DC from PT at this point in time. Thank you for allowing me to participate in this patients care. At this point I will be discontinuing this patient from physical therapy. I would be happy to see this patient again in the future if found appropriate by the physician. Thank you! Elvis Sandy <Electronically signed by Elvis Sandy DPT> 07/29/16 1608 CC: Evangelina Villanueva DO CLS Signed Gloria Jacob Start: 06-18-2016 End: 06-18-2016 Inital Evaluation (1) - PT Comments: See Note; NOTES: [facility] [place] [address] Fax REHABILITATION SERVICES INITIAL EVALUATION MR#: [id number] Acct: [id number] Name: ROSALIE GONZALES Rep #: [id number] : 1970 46 From: Elvis VINCENTT Referring DrAfrica: Gerardo Ramires Status: REG [facility] Insurance: [facility] Patient's Visit Information ROSALIE GONZALES is a 46 year old F referred to Physical Therapy by Gerardo Ramires with a diagnosis of Low back pain. Date of Evaluation: 06/16/16 Physical Therapist: Elvis Sandy - Visit Plan Frequency: 1-2x /Week Duration: 4 Weeks Plan: Start with core strengthening, re assess sacral torsion, slowly progress into ext as tolerated. May use US at SI/gluteal region to decrease symptoms. - Subjective Subjective: Pt. is here today for initial evaluation with diagnosis of low back pain. She reports having increased low back pain for the last 3-4 months, but has had episodes of back pain starting 4-5 years ago. She reports pain currently is on her right side of lumbar spine and at R SI joint. She reports increased pain with standing upto 10 minutes, increased pain with sustained sitting, increased pain with lying on stomach. She reports lying on side and changes of positions. She denies numbness or tingling, but has had increased pain into her gluteal region on her R side. She reports mild changes with heat, but not lasting. She has previously seen a chiropractor for her neck, but nt for her lumbar spine. She does wake up at night secondary to increased pain and her pain does effect her at work. She works at [employer] with mostly sitting activities. She is hopeful to reduce symptoms in order to get back to all recreational and work activities with decreased symptoms. - Pain R SI region Pain Intensity (Out of 10): 1 Pain Intensity Range: 0, 10 - Objective POSTURE: Pt. has slight increase in lumbar lordosis, rounded shoulders and FH positioning. She has equal iliac crest hieghts, but slightly lower ASIS on R side. She has equal wt. shift between her LEs in stance. PALPATION: Pt. has increase in symptoms to palpation of R side of SI joint, R piriformis, and R side of lumar erector spinea. NEUROLOGICAL: Pt. has normal sensation to light touch of bilateral LEs. She denies numbness/tingling in either LE. She has 2 + achilles and patellar DTR bilaterally. ROM: LUMBAR SPINE: flexion min loss increase NW, ext mod loss increase NW, SB min/nil loss NE, rotation nil/min loss increase NW. L hip- ER 43deg, IR 41deg, flexion 120deg, ext 10deg. R hip- flexion 118eg, ext 10deg, ER 41deg, IR 32deg. MMT : LLE- ankle 5/5 throughout; knee- 5/5 throughout; hip- flexion 4+/5, abd 4/5, ext 4+/5. RLE- ankle 5/5 throughout; knee- ext 5/5, flexion 5/5; hip- flexion 4/5, abd 4/5, ext 4/5. GAIT: Pt. has normal symmetrical step length bilaterally. She has increased hip lateral sway with slight contralateral hip drop. STAIRS: Pt. is able to negotiate with reciprocal pattern with 1 HR without LOB or increase in symptoms. - Special Tests L/S Slump test left side: Negative L/S Slump test right side: Negative L/S Left Straight Leg Raise: Negative L/S Right Straight Leg Raise: Negative Lumbar Standing: Flexion - Symptoms During Testing: Increases Lumbar Standing: Flexion - Symptoms After Testing: No worse Lumbar Standing: Extension - Mechanical Response: Increases motion Lumbar Standing: Extension - Symptoms During Testing: No effect Lumbar Standing: Extension - Symptoms After Testing: No worse Lumbar Lying: Flexion - Mechanical Response: No effect Lumbar Lying: Flexion - Symptoms During Testing: No effect Lumbar Lying: Flexion - Symptoms After Testing: No effect Lumbar Lying: Extension - Mechanical Response: No effect Lumbar Lying: Extension - Symptoms During Testing: Increases Lumbar Lying: Extension - Symptoms After Testing: No worse Lumbar Static: Slouched Sit - Mechanical Response: No effect Lumbar Static: Slouched Sit - Symptoms During Testing: No effect Lumbar Static: Slouched Sit - Symptoms After Testing: No effect Lumbar Static: Sitting Erect - Mechanical Response: No effect Lumbar Static: Sitting Erect - Symptoms During Testing: No effect Lumbar Static: Sitting Erect - Symptoms After Testing: No effect Lumbar Static:Lying Prone in Extension - Mechanical Response: No effect Lumbar Static: Lying Prone in Extension - Sx During Testing: Increases Lumbar Static: Lying Prone in Extension - Sx After Testing: No worse - Goals Goal 1:: Pt. to be I with HEP. Goal Time Frame: 2-4 Weeks Goal 2:: Pt. to have increased lumbar spine ROM by 50% in all directions without increase in symptoms. Goal Time Frame: 2-4 Weeks Goal 3:: Pt. to have increased core strength to fair decreasing stress applied to lumbar spine with all functional mobility. Goal Time Frame: 2-4 Weeks Goal 4:: Pt. to have increased BLE strength by 1/2 grade of all effected musculature. Goal Time Frame: 2-4 Weeks Goal 5:: Pt. to have 0-1/10 pain in lumbar/sacral pain at rest allowing increased ability to sleep throughout the night. Goal Time Frame: 4-6 Weeks Goal 6:: Pt. to have 0-1/10 pain in lumbar/sacral spine with all sitting and standing activities allowing for increased tolerance to all job activities. Goal Time Frame: 4-6 Weeks - Rehabilitation Potential Physical Therapy Diagnosis: Pt. has signs and symptoms consistent with low back pain that radiates into SI/gluteal region of her RLE, no symptoms past this region. She has hypomobility of her spine along with increased symptoms. She has slight torsion of her sacrum R anterior. She also has presence of decreased BLE and core strength. Rehabilitation Potential: Good - Anticipated Interventions Patient/Client Instruction: Educate patient on: Condition, Plan of Care, Risk Factors, Benefits of Fitness Program For the Purpose of:: To reduce risk of recurrence, To improve safety, To improve health and function, To foster healthy habits, To improve decision making, To facilitate caregiver knowledge, To improve self management, To prevent re-injury, To improve ability to perform tasks related to life management Therapeutic Exercise to Include: Strength training, Power training, Endurance training, Postural training, Flexibilty training, Passive ROM, Active ROM, Dynamic Lumbar Stabilization, Damian Exercises For the Purpose of:: To decrease pain, To increase ROM, To improve nutrient delivery to tissue, To increase oxygenation perfusion, To improve performance and independence with ADL's, To decrease level of supervision to perform tasks, To improve health of tissue, To decrease soft tissue restriction, To increase flexibility/ROM, To improve endurance Manual Therapy Techniques to Include: Mobilization, Manipulation, Passive ROM, Functional dry needling, Soft tissue mobilization For the Purpose of:: To decrease pain, To decrease swelling/inflammation, To increase ROM IF ES: Yes Cryotherapy (ice pack, ice massage): Yes Thermo therapy (hot pack): Yes Ultrasound (thermal/non thermal): Yes For the Purpose of:: To decrease pain, To increase ROM Thank you for the opportunity to evaluate your patient. For Medicare and Medicare HMO plans, please review the plan of care and approve it. It will need to be FAXED BACK to us at [phone] for Medicare purposes. Please let me know if there are questions or concerns regarding this plan of care. Physician Signature: Date: _ <Electronically signed by Elvis Sandy DPT> 06/18/16 1356 CC: Evangelina Villanueva DO; Gerardo Ramires CLS Signed For Medicare only, by signing this I certify the plan of care. ___ Physicians Signature Date Gloria James Start: 05-27-2016 End: 05-27-2016 L/S Spine Min 4 Views Comments: See Note; NOTES: [facility] [address] [place] [id number] [facility] 4d L/S Spine Min 4 Views MR#: [id number] Acct: [id number] Name: ROSALIE GONZALES Zen Rep #: [id number] : 1970 F 46 From: Jayesh Dietz MD PCP: Evangelina Villanueva DO Status: REG CLI Study: L/S Spine Min 4 Views Date of Exam: 05/27/16 Exam# [id number] Ordering Dr: Gerardo Ramires STUDY: X-RAY - LUMBAR SPINE REASON FOR EXAM: Female, 46 years old. Low back pain, no recent trauma TECHNIQUE: 5 view(s) of the lumbar spine were obtained. COMPARISON: None FINDINGS: Normal lumbar lordosis. There is no substantial scoliosis. There is a normal alignment of the vertebrae. There is a transitional vertebrae of the lumbosacral junction. Normal disc space heights. The soft tissue structures are unremarkable. RAD/L/S Spine Min 4 Views IMPRESSION: Transitional vertebrae of the lumbosacral junction. The study is otherwise unremarkable. Electronically Signed: Jayesh Dietz MD at 21:06 EST , Service support [phone], CC: Evangelina Villanueva DO; Gerardo Ramires Boiler Tube Reamer: Signed Gerardo Ramires Work Phone: Start: 05-27-2016 End: 05-27-2016 Sacrum-Coccyx min 2 Views Comments: See Note; NOTES: [facility] [address] [place] [id number] [place] 4d Sacrum-Coccyx min 2 Views MR#: [id number] Acct: [id number] Name: ROSALIE GONZALES Rep #: [id number] : 1970 F 46 From: Jayesh Dietz MD PCP: Evangelina Villanueva DO Status: REG CLI Study: Sacrum-Coccyx min 2 Views Date of Exam: 05/27/16 Exam# [id number] Ordering Dr: Gerardo Ramires STUDY: X-RAY - SACRUM/COCCYX REASON FOR EXAM: Female, 46 years old. Low back pain TECHNIQUE: 3 view(s) of the sacrum and coccyx were obtained. COMPARISON: None. FINDINGS: Normal bilateral sacroiliac joints. There is a transitional vertebrae at the lumbosacral junction. Normal sacrococcygeal junction with a normal angulation. Normal coccygeal segments. The presacral soft tissue structures are unremarkable. RAD/Sacrum-Coccyx min 2 Views IMPRESSION: Transitional vertebrae seen at the lumbosacral junction. The sacrum and coccyx are otherwise unremarkable. Electronically Signed: Jayesh Dietz MD at 20:59 EST , Service support [phone], CC: Evangelina Villanueva DO; Gerardo Ramires Boiler Tube Reamer: Signed Gerardoeduar Dobbssri Work Phone: Start: 03-02-2015 End: 03-03-2015 Foot min 3 Views Comments: See Note; NOTES: [facility] [address] [place] [address] Radiology Report MR#: [id number] Acct: [id number] Name: ROSALIE GONZALES Rep #: [id number] : 1970 F 45 From: Akua Hanks MD PCP: Evangelina Villanueva DO Status: REG CLI Study: Foot min 3 Views Date of Exam: 03/02/15 Exam# [id number] Ordering Dr: Evangelina Villanueva DO STUDY: X-RAY - LEFT FOOT CLINICAL: Female, 45 years old. Bilateral foot pain under the ball of foot. Extending to toes. Denies trauma. TECHNIQUE: 3 view(s) of the foot. COMPARISON: None. FINDINGS: Normal talus, calcaneus, and tarsal bones. Normal visualized subtalar, talonavicular, calcaneocuboid, tarsal and tarsometatarsal articulations. Normal metatarsi. Normal metatarsophalangeal joint of the great toe. Normal tibial and fibular sesamoid bones. Normal interphalangeal joint of the great toe. Normal phalanges of the great toe. Normal second through fifth metatarsophalangeal joints. Normal interphalangeal joints and phalanges of the lesser toes. The soft tissue structures are unremarkable. IMPRESSION: Normal x-ray examination of the foot. Electronically Signed: Akua Hanks MD at 10:20 EDT Tel , Service support [phone], RAD/Foot min 3 Views IMPRESSION: Normal x-ray examination of the foot. Electronically Signed: Akua Hanks MD at 10:20 EDT Tel , Service support [phone], CC: Evangelina Villanueva DO Boiler Tube Reamer: Signed Evangelina Kahn [email or web address] Phone: Start: 01-17-2014 End: 01-17-2014 Spmtry w/vc expiratory chapo w/wo mxml vol vntj _ Evangelina Kahn [email or web address] Phone: Comment on above: good effort and curve - small airways do wn Start: 01-17-2014 End: 01-17-2014 Ecg routine ecg w/least 12 lds w/i&r [MEASUREMENTS ANALYSIS] Date of Test: 01/17/2014 14:33:29; Heart Rate: 65; MT Interval: 164; QRS: 96; QT Interval: 396; Corrected QT Interval (QTc): 404; P Wave Nazlini: 56; QRS Wave Nazlini: 61; T Wave Nazlini: 46; Blood Pressure: 102/70 [ECG DIAGNOSTIC STATEMENTS] Date of Test: 01/17/2014 14:33:29; Summary: Sinus Rhythm WITHIN NORMAL LIMITS Evangelina Kahn [email or web address] Phone: Comment on above: ekg showed normal sinus rhythym, normal axis, no acute st/t wave changes Start: 07-14-2013 End: 07-14-2013 PT Discharge Summary Comments: See Note; NOTES: [facility] [place] [address] Fax REHABILITATION SERVICES DISCHARGE SUMMARY MR#: [id number] Acct: [id number] Name: ROSALIE GONZALES Rep #: [id number] : 1970 43 From: Ramin Medrano Referring : Evangelina Villanueva DO Status: PRE RCR Eval Date: Discharge Date: DATE OF SERVICE: REFERRING PHYSICIAN: Dr. Villanueva. This patient by the name of Rosalie Christian who was born on 1970, was referred to physical therapy with a diagnosis of cervical radiculopathy. The patient received a total number of 6 physical therapy sessions and our physical therapy sessions initially consisted of manual therapy techniques to include soft tissue massage, cervical traction, mobilization techniques with positive response. The patient was 50% better overall. At last visit, she had 0/10 pain. She had no headaches. We progressed the patient with cervical posture exercises, strengthening. At the time of discharge, the patient is discharged from our physical therapy clinic. She met her goals. She will be following up with you as needed. She is independent with home exercise program. increased range of motion to her cervical spine without pain, improving her function. Once again, thank you for this referral. Ramin Medrano, PT T: SUKH JOB: [id number] <Electronically signed by Ramin Medrano > 07/14/13 0841 CC: * Signed Evangelina Villanueva Work Phone: Start: 05-02-2013 End: 05-02-2013 Inital Evaluation - PT Comments: See Note; NOTES: [facility] [address] [place] [address]. [address] [place] [address] Fax REHABILITATION SERVICES INITIAL EVALUATION MR#: [id number] Acct: [id number] Name: ROSALIE GONZALES Rep #: [id number] : 1970 43 From: Ramin Medrano Referring DrAfrica: Evangelina Villanueva DO Status: REG R Insurance: [facility] Date: DATE OF SERVICE: REFERRING PHYSICIAN: Evangelina Villanueva D.O. SUBJECTIVE: This 43-year-old female by the name of Rosalie Gonzales who was born on 1970, presents to physical therapy with a diagnosis of cervical radiculopathy. This patient reports about insidious onset of 2 weeks that she developed cervical pain, which occasionally radiates to her deltoid, was described as an ache and occasional numbness. Today, she has a mild ache 1/10 in her left lateral arm, which only occurred when she was driving . Otherwise, she says 2-3/10 on pain in her neck, muscle tension, etc. She also states that she developed spasms in the left upper trapezius compared to the right. She states that her neck feels generalized weak. She states it hurts when she is turning, looking down, resting. She is a little better with Advil. As the day goes on, it gets worse. In the morning when she wakes up, she states she has stiffness, she moves around a little more, it is a little better. She has no treatment or history. The dizziness, tinnitus, nausea or swallowing does increase her symptoms. Gait is normal. MEDICATIONS: Vicodin and Skelaxin. REVIEW OF SYSTEMS: X-rays showed some degenerative disk disease. She has no abnormal night pain, unexplained weight loss. No major accidents. PAST SURGICAL HISTORY: There are no recent surgeries either. PAST MEDICAL HISTORY: She has a mitral valve prolapse, right elbow fracture. Otherwise, unremarkable, good health. The other factors, the patient does describe of occasional headaches as well. The patient's goal is pain free, no stiffness. SOCIAL HISTORY: . Vocation: [place]. She has 3 children. She is active with the children, who are involved in sports. OBJECTIVE: POSTURE: The patient has protruded head, rounded shoulders. PALPATION: The patient has tenderness around the levator scapula, scalenes, upper trap, left greater than right side as well as occipital paraspinals only mild. NEUROLOGICAL: Today, she has no numbness, although she does describe occasional numbness in her lateral deltoid. Her myotomes are intact C5, C6, C7. Reflexes symmetrically elicited C5, C6 and C7 2/3. Range of motion of upper extremities within normal limits. STRENGTH: Manual muscle testing: Shoulder strength anterior deltoid is 4/5, rotator cuff is 4/5, biceps, triceps is 5/5, wrist flexors and extensors is 5/5. Marriage Counselor strength is 50 pounds of pressure left, right is 55 pounds of pressure. Correction of posture, symptoms do better. There is no shift noted. Movement loss. Protrusion minimally limited. Flexion, retraction, extension, minimal loss. Sidebending, moderate loss with stretching to opposite side. Rotation, minimal loss. PRETEST PAIN: Neck pain, protrusion, repeated protrusion-retraction, retraction, no effect before and after. Flexion increased pulling, no worse. Distraction released symptoms, symptoms better. Compression negative. Positive quadrant test to the left side is positive. ASSESSMENT, IMPRESSION AND PROVISIONAL DIAGNOSIS: This patient appears to have signs and symptoms consistent of a cervical derangement above the elbow. PROBLEMS: 1. Decreased home exercise program. 2. Decreased posture for ADLs. 3. Increased cervical pain, radiculopathy. 4. Decreased cervical range of motion. 5. Decreased function. 6. Tenderness left greater right side of upper trapezius, levator scapula. GOALS: 1. The patient will be independent with home exercise program to self-manage symptoms. 2. The patient will be independent with postures for ADLs to help manage cervical pain. 3. The patient to reduce cervical radiculopathy by at least 65% or greater to improve function. 4. The patient to restore full range of motion of cervical spine, especially with lateral flexion and rotation within normal limits and return to flexion without stiffness. 5. The patient will be discharged with prophylaxis to home exercise program. 6. The patient has [id number] tenderness to palpation . PLAN: Plan of care was reviewed with the patient. We discussed with the patient basic anatomy of the cervical spine. We discussed with the patient the benefits of physical therapy. We discussed with the patient the cumulative effect of faulty posture, how it impacts the cervical spine. We discussed with the patient correction of posture, muscle spasms and pain cycle, etc. The patient was instructed to perform cervical retractions x10 repetitions every 1-2 hours and monitor symptoms. Today, then we implemented manual therapy techniques to include cervical distraction as well as soft tissue massage x10 minutes. We plan to see this patient twice a week for 4 weeks focusing on home exercise program, posture exercises, posture training, Damian exercises, modalities, manual therapy techniques and possible intermittent cervical traction as well. Ramin Medrano, PT T: SUKH JOB: [id number] <Electronically signed by Ramin Medrano > 05/02/13 1101 CC: Signed For Medicare only, by signing this I certify the plan of care. ___ Physicians Signature Date Evangelina Villanueva Work Phone: Start: 05-02-2013 End: 05-02-2013 PT Letter Comments: See Note; NOTES: [address] [place] [address] Fax Evangelina Villanueva DO [address] [facility] [place] [address] Villanueva: Rosalie Gonzales was seen in our physical therapy clinic with a diagnosis of cervical radiculopathy. Our initial evaluation revealed the patient does have a cervical derangement above the elbow. Today, we discussed the patient basic anatomy of the cervical spine and mechanism of pain. We discussed with the patient benefits of physical therapy. The patient agreed to plan of care. We educated the patient on cervical retraction exercises every 1-2 hours and monitor symptoms. We also provided the patient manual therapy techniques to include cervical distraction with as well as soft tissue massage with a positive response. Plan is to see this patient twice a week for 4 weeks focusing on home exercise program, Damian exercises, posture training, manual therapy, modalities. If you have any questions, please feel free to call me at [phone]. Once again, thank you for this referral. Sincerely, Ramin Medrano, PT T: SUKH JOB: [id number] <Electronically signed by Ramin Medrano > 05/02/13 1101 CC: Evangelina Villanueva Work Phone: Start: 04-26-2013 End: 04-26-2013 Cerv Spine 4 or 5 Views Comments: See Note; NOTES: [facility] [address] [place] [address] Radiology Report MR#: [id number] Acct: [id number] Name: ROSALIE GONZALES Rep #: [id number] : 1970 F 43 From: Isacc Wills MD PCP: Status: REG CLI Study: Cerv Spine 4 or 5 Views Date of Exam: 04/26/13 Exam# [id number] Ordering Dr: Evangelina Villanueva DO STUDY: X-RAY - CERVICAL SPINE REASON FOR EXAM: Female, 43 years old. Left arm numbness. TECHNIQUE: 6 views of the cervical spine were obtained. COMPARISON: None FINDINGS: Normal anterior atlantoaxial articulation. Normal odontoid process. There is straightening of the normal cervical lordosis. Normal vertebral bodies and endplates. There is evidence of disc space narrowing with anterior spondylosis at the C5-C6 and C6-C7 levels. Normal visualized intervertebral neuroforamina. The soft tissue structures are unremarkable. IMPRESSION: Disc space narrowing and spondylosis at the C5-C6 and C6-C7 levels. Straightening of the normal cervical lordosis. Signed: Isacc Wills M.D. April 26, 2013 at 2:16:21 PM EDT [phone] Electronically Signed GP/GP If you are the referring physician and would like to consult with the radiologist who provided this interpretation, please contact Isacc Wills M.D. at [phone]. If this radiologist is unavailable, you will be directed to another radiologist to assist. If you are a patient with a question regarding this report, please contact your referring physician directly. Professional Interpretation Provided By: [employer], Phone , These documents contain legally protected and confidential health information intended only for the use of the individual or entity named above. If you are not the intended recipient, you are hereby notified that any disclosure, copying, distribution, or other use of these documents is strictly prohibited. If you have received this information in error, please notify the sender immediately and arrange for the return or destruction of these documents. CC: Evangelina Villanueva DO Boiler Tube Reamer: Signed Evangelina Villanueva Work Phone: Cholecystectomy Elisabet Slarb Cholecystectomy Kady Coffma n Cholecystectomy Jewell Nitin anjel Cholecystectomy Heidy Cross Cholecystectomy Heidy Cross Cholecystectomy Elisabte Slarb [employer] SERVICE TECHNICIAN H/O: tubal ligation Tubal Ligation Heidy Cross [employer] SERVICE TECHNICIAN Comment on above: 2000 H/O: tubal ligation Tubal Ligation Elisabet Slarb [employer] SERVICE TECHNICIAN Comment on above: 2000 Total hysterectomy Jewell martin Comment on above: 2011- no cancer and still has cervix and ovaries Total hysterectomy Heidy gomez Comment on above: 2012- no cancer and still has cervix and ovaries Total hysterectomy Heidy Leal oss Comment on above: 2012- no cancer and still has cervix and ovaries Total hysterectomy Elisabet Maldonado arb [employer] SERVICE TECHNICIAN Comment on above: 2012- no cancer and still has cervix and ovaries Vaginal hysterectomy Elisabet Campbell Comment on above: 2012- no cancer and still has cervix and ovaries Vaginal hysterectomy Kady Katherine sanchesmarcio Comment on above: 2012- no cancer and still has cervix and ovaries Vaginal hysterectomy Jewell mcmullen Comment on above: 2012- no cancer and still has cervix and ovaries Plan of Treatment Date Care Activity Detail Author Start: 04-27-2025 Registered Recurring Registered Recurring -Physical Therapy Work Phone: Start: 03-23-2025 X-ray of cervical spine Cerv Spine 2 or 3 Views [facility] Start: 03-23-2025 XR Cervical spine 2 or 3 Views [facility] Start: 03-08-2025 Application of device [facility] Start: 03-08-2025 Catheterization of vein [facility] Start: 03-08-2025 Patient discharge [facility] Start: 03-08-2025 End: 03-08-2025 Incentive spirometry [facility] Start: 03-08-2025 End: 03-08-2025 Measuring intake and output [facility] Start: 03-07-2025 Incentive spirometry [facility] Start: 03-07-2025 Application of intermittent pneumatic compression device [facility] Start: 03-07-2025 Following clinical pathway protocol [facility] Start: 03-07-2025 Oxygen therapy [facility] Start: 03-07-2025 Application of device [facility] Start: 03-07-2025 End: 03-07-2025 Measuring intake and output [facility] Start: 03-07-2025 Consultation [facility] Start: 03-07-2025 Admission procedure [facility] Start: 03-07-2025 Assessment of risk of venous thromboembolism [facility] Start: 03-07-2025 Following clinical pathway protocol [facility] Start: 03-07-2025 Introduction of urinary catheter [facility] Start: 03-07-2025 Neurovascular assessment [facility] Start: 03-07-2025 Patient education [facility] Start: 03-07-2025 Provision of activity privileges [facility] Start: 03-07-2025 Referral for physical therapy [facility] Start: 03-07-2025 Referral to occupational therapist [facility] Start: 03-07-2025 Referral to service [facility] Start: 03-07-2025 Taking patient vital signs [facility] Start: 03-07-2025 Verification routine [facility] Start: 03-07-2025 End: 03-07-2025 [facility] Start: 03-07-2025 Allograft for spine surgery only structural SP BONE ALGRFT STRUCT ADD-ON [facility] Start: 03-07-2025 Anesthesia extensive spine & spinal cord ANESTH SPINE CORD SURGERY [facility] Start: 03-07-2025 Anterior instrumentation 2-3 vertebral segments INSERT SPINE FIXATION DEVICE [facility] Start: 03-07-2025 Arthrd ant interdy cervcl belw c2 ea addl ntrspc ARTHRD ANT NTRBD CERVICAL EA [facility] Start: 03-07-2025 Cervical arthrodesis by anterior technique ARTHRD ANT NTRBDY CERVICAL [facility] Start: 02-23-2025 Leukocyte reduced red blood cells [facility] Start: 10-13-2024 Patient referral [facility] Work Phone: Start: 11-16-2023 [facility] Start: 11-16-2023 Troponin I measurement [facility] Start: 09-02-2023 Patient referral [facility] Work Phone: Start: 08-24-2023 Patient referral [facility] Work Phone: Start: 05-20-2023 Patient referral [facility] Work Phone: Start: 05-20-2023 Evaluation of diagnostic study results [facility] Start: 07-02-2021 Patient referral [facility] Work Phone: Start: 05-06-2021 Procedure Education Eprescribed prescriptions (G8553) [facility] Work Phone: Start: 05-06-2021 Provider Instructions for Treatment Reviewed Lab [facility] Work Phone: Start: 05-06-2021 Assay of thyroid stimulating hormone tsh TSH (21571) [facility] Work Phone: Start: 05-06-2021 Assay of free thyroxine T4, FREE (THYROXINE) (00645) [facility] Work Phone: Start: 05-06-2021 Assay of triiodothyronine t3 free T3, FREE (TRIDOTHYRONINE) (63640) [facility] Work Phone: Start: 03-22-2021 Procedure Education Eprescribed prescriptions (G8553) [facility] Work Phone: Start: 11-26-2020 End: 11-26-2020 Clinical Support 11/26/2020 Clinical Support Genetics Lida Roman, [place] [address] [facility] Start: 10-22-2020 Assay of free thyroxine T4, FREE (THYROXINE) (50108) [facility] Work Phone: Start: 10-22-2020 Assay of triiodothyronine t3 free T3, FREE (TRIDOTHYRONINE) (91148) [facility] Work Phone: Start: 10-22-2020 Assay of thyroid stimulating hormone tsh TSH (THYROID STIMULATING HORMONE) (05945) [facility] Work Phone: Start: 08-02-2020 Procedure Education Eprescribed prescriptions (G8553) [facility] Work Phone: Start: 08-02-2020 Provider Instructions for Treatment Reviewed Diagnostic Tests [facility] Work Phone: Start: 07-20-2020 Assay of thyroid stimulating hormone tsh TSH (THYROID STIMULATING HORMONE) (33249) [facility] Work Phone: Start: 07-20-2020 TSH Qn TSH (THYROID STIMULATING HORMONE) (52498) [facility] Work Phone: Start: 07-17-2020 Procedure Education Eprescribed prescriptions (G8553) [facility] Work Phone: Start: 07-17-2020 Provider Instructions for Treatment *fatigue education [facility] Work Phone: Start: 07-17-2020 Iron binding capacity IRON BINDING CAPACITY (TIBC) (46953) [facility] Work Phone: Start: 07-17-2020 Assay of iron IRON (58887) [facility] Work Phone: Start: 07-17-2020 Iron [Mass/Vol] IRON (15256) [facility] Work Phone: Start: 07-17-2020 Ferritin [Mass/Vol] FERRITIN (70668) [facility] Work Phone: Start: 07-17-2020 Blood count complete automated CBC (AUTO) (05631) [facility] Work Phone: Start: 07-17-2020 Cobalamin (Vitamin B12) [Mass/Vol] VITAMIN B-12 (CYANOCOBALAMIN) (43154) [facility] Work Phone: Start: 07-17-2020 Comprehensive metabolic panel METABOLIC PANEL, COMPREHENSIVE (37648) [facility] Work Phone: Start: 07-17-2020 CRP [Mass/Vol] C-REACTIVE PROTEIN (28638) [facility] Work Phone: Start: 07-17-2020 Nuclear Ab IF (S) [Titer] MARIA TERESA (ANTINUCLEAR ANTIBODY) (28873) [facility] Work Phone: Start: 07-17-2020 Rheumatoid factor quantitative RHEUMATOID FACTOR-QUANT (33005) [facility] Work Phone: Start: 07-17-2020 Sedimentation rate rbc non-automated SED RATE ERYTHROCYTE (63313) [facility] Work Phone: Start: 07-17-2020 Lipid panel LIPID PANEL (71505) [facility] Work Phone: Start: 07-17-2020 25 hydroxy includes fractions if performed CALCIFIDIOL (69893) VIT D 25 [facility] Work Phone: Start: 07-17-2020 TSH Qn TSH (81580) [facility] Work Phone: Start: 03-06-2020 FLU (#1) FLU (#1) [facility] Start: 12-14-2019 Assay of thyroid stimulating hormone tsh TSH (THYROID STIMULATING HORMONE) (86660) [facility] Work Phone: Start: 12-14-2019 TSH Qn TSH (THYROID STIMULATING HORMONE) (26969) [facility] Work Phone: Start: 11-25-2019 Provider Instructions for Treatment *fatigue education [facility] Work Phone: Start: 11-25-2019 Beta HCG ( test) Ql (U) Urine Test, Office (49856) [facility] Work Phone: Start: 11-25-2019 Urine test visual color cmprsn meths Urine Test, Office (01594) [facility] Work Phone: Start: 09-30-2019 Provider Instructions for Treatment [facility] Work Phone: Start: 09-30-2019 25 hydroxy includes fractions if performed CALCIFIDIOL (57745) VIT D 25 [facility] Work Phone: Start: 06-27-2019 Procedure Education Eprescribed prescriptions (G8553) [facility] Work Phone: Start: 06-27-2019 Provider Instructions for Treatment [facility] Work Phone: Start: 06-27-2019 Assay of thyroid stimulating hormone tsh TSH (72476) [facility] Work Phone: Start: 06-27-2019 TSH Qn TSH (22617) [facility] Work Phone: Start: 06-27-2019 Assay of free thyroxine T4, FREE (THYROXINE) (39950) [facility] Work Phone: Start: 06-27-2019 Free T4 [Mass/Vol] T4, FREE (THYROXINE) (65155) [facility] Work Phone: Start: 06-27-2019 Assay of triiodothyronine t3 free T3, FREE (TRIDOTHYRONINE) (49141) [facility] Work Phone: Start: 06-27-2019 Free T3 [Mass/Vol] T3, FREE (TRIDOTHYRONINE) (65273) [facility] Work Phone: Start: 05-13-2019 Procedure Education Eprescribed prescriptions (G8553) [facility] Work Phone: Start: 05-13-2019 Provider Instructions for Treatment Follow up if no improvement or if symptoms worsen [facility] Work Phone: Start: 05-13-2019 25 hydroxy includes fractions if performed CALCIFEDIOL (94748) [facility] Work Phone: Start: 04-27-2019 Procedure Education Eprescribed prescriptions (G8553) [facility] Work Phone: Start: 04-27-2019 Provider Instructions for Treatment [facility] Work Phone: Start: 04-27-2019 TSH Qn TSH (91782) [facility] Work Phone: Start: 04-27-2019 Free T4 [Mass/Vol] T4, FREE (THYROXINE) (04362) [facility] Work Phone: Start: 04-27-2019 Free T3 [Mass/Vol] T3, FREE (TRIDOTHYRONINE) (20228) [facility] Work Phone: Start: 05-27-2016 Procedure Education Eprescribed prescriptions (G8553) [facility] Work Phone: Start: 03-27-2016 Assay of thyroid stimulating hormone tsh TSH (THYROID STIMULATING HORMONE) (88687) [facility] Work Phone: Start: 03-27-2016 TSH Qn TSH (THYROID STIMULATING HORMONE) (46143) [facility] Work Phone: Start: 02-27-2016 Provider Instructions for Treatment Follow up in 8weeks [facility] Work Phone: Start: 02-20-2016 Provider Instructions for Treatment [facility] Work Phone: Start: 12-10-2015 Assay of thyroid stimulating hormone tsh TSH (35321) [facility] Work Phone: Start: 12-10-2015 TSH Qn TSH (70747) [facility] Work Phone: Start: 12-10-2015 Procedure Education Eprescribed prescriptions (G8553) [facility] Work Phone: Start: 07-25-2015 Sedimentation rate rbc non-automated Sed Rate Erythrocyte (03714) [facility] Work Phone: Start: 07-25-2015 Creatine kinase total Creatine Kinase Total (44614) [facility] Work Phone: Start: 07-25-2015 C-reactive protein C-Reactive Protein (81006) [facility] Work Phone: Start: 07-25-2015 CRP [Mass/Vol] C-Reactive Protein (12937) [facility] Work Phone: Start: 07-25-2015 Antibody oneil-cardoza eb virus early antigen ea EBV Panel (22338) [facility] Work Phone: Start: 07-25-2015 Urnls dip stick/tablet reagent auto microscopy URINALYSIS, W/ MICRO (44041) [facility] Work Phone: Start: 07-25-2015 Blood count complete auto&auto difrntl wbc CBC W/AUTO DIFF WBC (68965) [facility] Work Phone: Start: 01-20-2016 Comprehensive metabolic panel METABOLIC PANEL, COMPREHENSIVE (88611) [facility] Work Phone: Start: 07-25-2015 Patient Education Blood Glucose Test: blood [facility] Work Phone: Start: 07-25-2015 Procedure Education Eprescribed prescriptions (G8553) [facility] Work Phone: Start: 03-02-2015 Procedure Education Eprescribed prescriptions (G8553) [facility] Work Phone: Start: 11-22-2014 Assay of thyroid stimulating hormone tsh TSH (THYROID STIMULATING HORMONE) (23728) [facility] Work Phone: Comment on above: getting in 6 weeks Start: 11-22-2014 TSH Qn TSH (THYROID STIMULATING HORMONE) (67684) [facility] Work Phone: Comment on above: getting in 6 weeks Start: 11-21-2014 Patient Education Healthy Weight Gain: gain [facility] Work Phone: Start: 11-21-2014 Procedure Education Eprescribed prescriptions (G8553) [facility] Work Phone: Start: 11-21-2014 Lipid panel LIPID PANEL (00242) [facility] Work Phone: Start: 11-21-2014 Cobalamin (Vitamin B12) [Mass/Vol] VITAMIN B-12 (CYANOCOBALAMIN) (27429) [facility] Work Phone: Start: 11-21-2014 Cyanocobalamin vitamin b-12 VITAMIN B-12 (CYANOCOBALAMIN) (00246) [facility]; [facility] Work Phone: Start: 11-21-2014 25 hydroxy includes fractions if performed Vitamin D Hydroxy (24127) [facility] Work Phone: Start: 11-21-2014 Blood count complete auto&auto difrntl wbc CBC W/AUTO DIFF WBC (66018) [facility] Work Phone: Start: 11-21-2014 Comprehensive metabolic panel METABOLIC PANEL, COMPREHENSIVE (97753) [facility] Work Phone: Start: 11-21-2014 Assay of triiodothyronine t3 free T3, FREE (TRIDOTHYRONINE) (76290) [facility] Work Phone: Start: 11-21-2014 Free T3 [Mass/Vol] T3, FREE (TRIDOTHYRONINE) (91778) [facility] Work Phone: Start: 11-21-2014 Assay of free thyroxine T4, FREE (THYROXINE) (02327) [facility] Work Phone: Start: 11-21-2014 Free T4 [Mass/Vol] T4, FREE (THYROXINE) (31336) [facility] Work Phone: Start: 11-21-2014 Assay of thyroid stimulating hormone tsh TSH (12498) [facility] Work Phone: Start: 11-21-2014 TSH Qn TSH (91575) [facility] Work Phone: Start: 04-26-2014 Provider Instructions for Treatment Follow up in 1 week [facility] Work Phone: Start: 02-06-2014 Procedure Education Eprescribed prescriptions (G8553) [facility] Work Phone: Start: 01-17-2014 Patient Education Migraine Headache: Brief Version *: migraine [facility] Work Phone: Start: 01-17-2014 Procedure Education Eprescribed prescriptions (G8553) [facility] Work Phone: Start: 12-21-2013 Assay of thyroid stimulating hormone tsh TSH (07648) [facility] Work Phone: Start: 12-21-2013 TSH Qn TSH (26285) [facility] Work Phone: Start: 09-20-2013 Assay of thyroid stimulating hormone tsh TSH (86714) [facility] Work Phone: Start: 09-20-2013 TSH Qn TSH (14628) [facility] Work Phone: Start: 06-16-2012 Comprehensive metabolic panel METABOLIC PANEL, COMPREHENSIVE (34626) [facility] Work Phone: Start: 06-16-2012 Assay of thyroid stimulating hormone tsh TSH (35874) [facility] Work Phone: Start: 06-16-2012 TSH Qn TSH (18672) [facility] Work Phone: Start: 06-16-2012 Lipid panel LIPID PANEL (12416) [facility] Work Phone: Start: 04-14-2012 Patient Education Hypothyroidism: Brief Version *: gland [facility] Work Phone: Start: 02-24-2012 Assay of thyroid stimulating hormone tsh TSH (89716) [facility] Work Phone: Start: 02-24-2012 TSH Qn TSH (81386) [facility] Work Phone: Start: 10-22-2011 Assay of thyroid stimulating hormone tsh TSH (68470) [facility] Work Phone: Start: 10-22-2011 TSH Qn TSH (69996) [facility] Work Phone: Start: 10-03-2011 Assay of thyroid stimulating hormone tsh TSH (80860) [facility] Work Phone: Start: 10-03-2011 TSH Qn TSH (86489) [facility] Work Phone: Start: 10-03-2011 Comprehensive metabolic panel METABOLIC PANEL, COMPREHENSIVE (13342) [facility] Work Phone: Start: 10-03-2011 Assay of thyroid stimulating hormone tsh TSH (36398) [facility] Work Phone: Start: 10-03-2011 Blood count manual cell count each CBC WITH MANUAL DIFF (70494) [facility] Work Phone: Start: 10-03-2011 TSH Qn TSH (47261) [facility] Work Phone: Start: 10-03-2011 Fibrin dgradj products d-dimer quantitative D-Dimer (50417) [facility] Work Phone: Comment on above: stat call results Start: 10-03-2011 Assay of troponin quantitative ASSAY, TROPONIN, QUANTITATIVE (aka Troponin I) (69847) [facility]; [facility] Work Phone: Comment on above: stat Start: 10-03-2011 Troponin I.cardiac [Mass/Vol] ASSAY, TROPONIN, QUANTITATIVE (aka Troponin I) (11618) [facility] Work Phone: Comment on above: stat Start: 05-02-2011 Assay of thyroid stimulating hormone tsh TSH (THYROID STIMULATING HORMONE) (20749) [facility] Work Phone: Start: 05-02-2011 TSH Qn TSH (THYROID STIMULATING HORMONE) (94127) [facility] Work Phone: Start: 01-01-2011 Blood count manual cell count each CBC WITH MANUAL DIFF (76624) [facility] Work Phone: Start: 01-01-2011 Comprehensive metabolic panel METABOLIC PANEL, COMPREHENSIVE (44466) [facility] Work Phone: Start: 01-01-2011 Assay of thyroid stimulating hormone tsh TSH (47062) [facility] Work Phone: Start: 01-01-2011 TSH Qn TSH (88456) [facility] Work Phone: Start: 01-01-2011 Lipid panel LIPID PANEL (08869) [facility] Work Phone: Start: 06-26-2010 Assay of thyroid stimulating hormone tsh TSH (THYROID STIMULATING HORMONE) (80895) [facility] Work Phone: Start: 06-26-2010 TSH Qn TSH (THYROID STIMULATING HORMONE) (97609) [facility] Work Phone: Start: 06-13-2010 Iaadiadoo influenza [facility] Work Phone: Comment on above: sent to hospital Start: 06-13-2010 Patient Education Sore throat: diagnosis and treatment [facility] Work Phone: Start: 06-13-2010 Provider Instructions for Treatment *URI Treatment [facility] Work Phone: Start: 01-04-2010 Lipid panel LIPID PANEL (74014) [facility] Work Phone: Start: 01-04-2010 Assay of thyroid stimulating hormone tsh TSH (38251) [facility] Work Phone: Start: 01-04-2010 TSH Qn TSH (95389) [facility] Work Phone: Start: 09-14-2009 Provider Instructions for Treatment Diet, Exercise, and Wt loss [facility] Work Phone: Start: 09-14-2009 Hepatic function panel HEPATIC FUNCTION PANEL (20452) [facility] Work Phone: Start: 09-14-2009 Lipid panel LIPID PANEL (77322) [facility] Work Phone: Start: 09-14-2009 Assay of thyroid stimulating hormone tsh TSH (40800) [facility] Work Phone: Start: 09-14-2009 TSH Qn TSH (61552) [facility] Work Phone: Start: 11-06-2008 Assay of thyroid stimulating hormone tsh TSH (06021) [facility] Work Phone: Start: 11-06-2008 TSH Qn TSH (86094) [facility] Work Phone: Start: 11-03-2008 Assay of thyroid stimulating hormone tsh TSH (34733) [facility] Work Phone: Start: 11-03-2008 TSH Qn TSH (45943) [facility] Work Phone: Start: 11-03-2008 Comprehensive metabolic panel METABOLIC PANEL, COMPREHENSIVE (38878) [facility] Work Phone: Start: 11-03-2008 Blood count manual cell count each CBC WITH MANUAL DIFF (49932) [facility] Work Phone: Start: 11-03-2008 Assay of troponin quantitative ASSAY, TROPONIN, QUANTITATIVE (aka Troponin I) (20013) [facility] Work Phone: Start: 11-03-2008 Troponin I.cardiac [Mass/Vol] ASSAY, TROPONIN, QUANTITATIVE (aka Troponin I) (35267) [facility] Work Phone: Start: 11-03-2008 Fibrin dgradj products d-dimer quantitative D-Dimer (68441) [facility] Work Phone: Start: 11-03-2008 C-reactive protein C-REACTIVE PROTEIN (07106) [facility] Work Phone: Start: 11-03-2008 CRP [Mass/Vol] C-REACTIVE PROTEIN (71325) [facility] Work Phone: Start: 11-03-2008 Sedimentation rate rbc non-automated SED RATE ERYTHROCYTE (65153) [facility] Work Phone: Start: 02-11-2008 Assay of thyroid stimulating hormone tsh TSH (07588) [facility] Work Phone: Start: 02-11-2008 TSH Qn TSH (26494) [facility] Work Phone: Start: 12-23-2007 Provider Instructions for Treatment Antidepressant Usage [facility] Work Phone: Start: 12-22-2007 Assay of thyroid stimulating hormone tsh TSH (75938) [facility] Work Phone: Start: 12-22-2007 TSH Qn TSH (59262) [facility] Work Phone: Start: 11-09-2007 Comprehensive metabolic panel METABOLIC PANEL, COMPREHENSIVE (99327) [facility] Work Phone: Start: 11-09-2007 Assay of thyroid stimulating hormone tsh TSH (36456) [facility] Work Phone: Start: 11-09-2007 TSH Qn TSH (36335) [facility] Work Phone: Start: 11-09-2007 Blood count manual cell count each CBC WITH MANUAL DIFF (97037) [facility] Work Phone: Start: 1989 Hepatitis B (1 of 3 - Risk 3-dose series) Hepatitis B (1 of 3 - Risk 3-dose series) [facility] Start: 1986 MenB (1 of 2 - MenB 2-Dose Series) MenB (1 of 2 - MenB 2-Dose Series) [facility] Start: 1977 Tetanus Diphtheria and Pertussis Vaccines (1 - Tdap) Tetanus Diphtheria and Pertussis Vaccines (1 - Tdap) [facility] Start: 1971 Hepatitis A (1 of 2 - Risk 2-dose series) Hepatitis A (1 of 2 - Risk 2-dose series) [facility] Start: 1971 MMR (1 of 1 - Standard series) MMR (1 of 1 - Standard series) [facility] Start: 1971 Varicella (1 of 2 - 2-dose childhood series) Varicella (1 of 2 - 2-dose childhood series) [facility] Electrocardiographic procedure [facility] End: 10-29-2020 Genetic Sendout: CancerNext Panel Genetic Sendout: CancerNext Panel Lab Timed Family history of breast cancer Family history of colon cancer Family history of pancreatic cancer 1 Occurrences starting 10/29/2020 until 10/29/2020 [facility] Comment on above: 1 Occurrences starting 10/29/2020 until 10/29/2020 Genetic Sendout: Can cerNext Panel Genetic Sendout: CancerNext Panel Lab Routine Family history of breast cancer Family history of colon cancer Family history of pancreatic cancer 10/29/2020 10:00 AM EDT [facility] MR Biliary ducts and Pancreatic duct [facility] MR Lumbar spine [facility] Patient Education [facility] Work Phone: Patient referral [facility] Work Phone: T4 free measurement [facility] Thyroid stimulating hormone measurement [facility] Work Phone: Thyroid stimulating hormone measurement [facility] Thyroid stimulating hormone measurement [facility] Thyroid stimulating hormone measurement [facility] XR Pelvis and Hip - bilateral Views [facility] Work Phone: [facility] Work Phone: [facility] Work Phone: [facility] Work Phone: [facility] Work Phone: [facility] Work Phone: [facility] Work Phone: [facility] Work Phone: [facility] Work Phone: [facility] Work Phone: [facility] Work Phone: [facility] Work Phone: [facility] Work Phone[facility] Work Phone: [facility] Work Phone: [facility] Work Phone: [facility] Work Phone: [facility] Immunizations Immunization Date Immunization Notes Care Provider Fa cilialvin 10-18-2020 COVID-19 (Moderna) Gloria Jacob DO Work Phone: [facility] Work Phone: 09-20-2020 COVID-19 (Moderna) Gloria Jacob DO Work Phone: [facility] Work Phone: Payers Date Payer Category Payer Unknown [id number] 2024 Self-pay [id number] 2024 Unknown [id number] 2020 Unknown [facility] [id number] 2020-Present [address] [place] [address] [id number] Unknown Medical [facility] Unknown [id number] Unknown [id number] [id number] Unknown [id number] [id number] Unknown [id number] 2.16.840.1.916497.3.579.2.462 Unknown [id number] 2.16.840.1.638365.3.579.2.462 Unknown [id number] 2.16.840.1.043627.3.579.2.462 Unknown [id number] 2.16.840.1.392562.3.579.2.462 Unknown [id number] 2.16.840.1.187065.3.579.2.462 Unknown [id number] 2.16.840.1.095371.3.579.2.462 Unknown [id number] 2.16.840.1.599468.3.579.2.462 Unknown [id number] 2.16.840.1.303329.3.579.2.462 Unknown [id number] 2.16.840.1.784133.3.579.2.462 Unknown [id number] 2.16.840.1.284785.3.579.2.462 Unknown [id number] 2.16.840.1.614183.3.579.2.462 Unknown [id number] 2.16.840.1.412493.3.579.2.462 Unknown [id number] 2.16.840.1.163545.3.579.2.462 Unknown [id number] 2.16.840.1.232823.3.579.2.462 Unknown [id number] 2.16.840.1.294323.3.579.2.462 Unknown [id number] [id number] Social History Date Type Detail Facility Caffeine Use Caffeine Use [facility] Work Phone: Comment on above: 1 QD , 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 Tobacco use: Tobacco use: [facility] Work Phone: Tobacco use: Tobacco use: [facility] Work Phone: Start: 10-29-2020 End: 02-17-2025 Tobacco smoking status NHIS Never smoker [facility] Start: 10-29-2020 Tobacco use and exposure Never used [facility] Start: 1970 Sex Assigned At Not on file A [facility] Exposure to SARS-CoV-2 (event) Not sure [facility] Start: 08-30-2021 End: 11-16-2023 Tobacco smoking status UTIS Unknown if ever smoked [facility] Start: 1970 Sex Assigned At Female W [facility] Not [facility] Medical Equipment Procedure Code Equipment Code Equipment Origin al Text Equipment Identifier Dates Discectomy, spine, cervical, anterior approach, with fusion 2 LEVEL PLATES FDA Start: 03-07-2025 Discectomy, spine, cervical, anterior approach, with fusion PUTTY,BONE 1CC DBX FDA Start: 03-07-2025 Discectomy, spine, cervical, anterior approach, with fusion SUTURE,LIGA CLIP MED [id number] FDA Start: 03-07-2025 Discectomy, spine, cervical, anterior approach, with fusion Gelatin haemostatic agent [id number] FDA Start: 03-07-2025 Discectomy, spine, cervical, anterior approach, with fusion 4.0 FIXED ANGLE SCREWS ANGLE COOK FDA Start: 03-07-2025 Discectomy, spine, cervical, anterior approach, with fusion 4.0 FIXED ANGLE SCREWS ANGLE COOK FDA Start: 03-07-2025 Discectomy, spine, cervical, anterior approach, with fusion 4.0 FIXED ANGLE SCREWS COOK FDA Start: 03-07-2025 Discectomy, spine, cervical, anterior approach, with fusion 4.0 FIXED ANGLE SCREWS COOK FDA Start: 03-07-2025 Discectomy, spine, cervical, anterior approach, with fusion 4.0 FIXED ANGLE SCREWS COOK FDA Start: 03-07-2025 Discectomy, spine, cervical, anterior approach, with fusion 4.0 FIXED ANGLE SCREWS COOK FDA Start: 03-07-2025 Discectomy, spine, cervical, anterior approach, with fusion ANATOMIC CERVICAL ALLOGRAFT SPACER ([id number]) FDA Start: 03-07-2025 Discectomy, spine, cervical, anterior approach, with fusion ANATOMIC CERVICAL ALLOGRAFT SPACER ([id number]) FDA Start: 03-07-2025 Discectomy, spine, cervical, anterior approach, with fusion 2 LEVEL PLATES FDA Start: 03-07-2025 Discectomy, spine, cervical, anterior approach, with fusion PUTTY,BONE 1CC DBX FDA Start: 03-07-2025 Discectomy, spine, cervical, anterior approach, with fusion SUTURE,LIGA CLIP MED [id number] FDA Start: 03-07-2025 Discectomy, spine, cervical, anterior approach, with fusion 4.0 FIXED ANGLE SCREWS ANGLE COOK FDA Start: 03-07-2025 Discectomy, spine, cervical, anterior approach, with fusion 4.0 FIXED ANGLE SCREWS ANGLE COOK FDA Start: 03-07-2025 Discectomy, spine, cervical, anterior approach, with fusion 4.0 FIXED ANGLE SCREWS COOK FDA Start: 03-07-2025 Discectomy, spine, cervical, anterior approach, with fusion 4.0 FIXED ANGLE SCREWS COOK FDA Start: 03-07-2025 Discectomy, spine, cervical, anterior approach, with fusion 4.0 FIXED ANGLE SCREWS COOK FDA Start: 03-07-2025 Discectomy, spine, cervical, anterior approach, with fusion 4.0 FIXED ANGLE SCREWS COOK FDA Start: 03-07-2025 Discectomy, spine, cervical, anterior approach, with fusion ANATOMIC CERVICAL ALLOGRAFT SPACER (C1889) FDA Start: 03-07-2025 Discectomy, spine, cervical, anterior approach, with fusion ANATOMIC CERVICAL ALLOGRAFT SPACER (C1889) FDA Start: 03-07-2025 Discectomy, spine, cervical, anterior approach, with fusion 2 LEVEL PLATES FDA Start: 03-07-2025 Discectomy, spine, cervical, anterior approach, with fusion PUTTY,BONE 1CC DBX FDA Start: 03-07-2025 Discectomy, spine, cervical, anterior approach, with fusion SUTURE,LIGA CLIP MED [id number] FDA Start: 03-07-2025 Discectomy, spine, cervical, anterior approach, with fusion 4.0 FIXED ANGLE SCREWS ANGLE COOK FDA Start: 03-07-2025 Discectomy, spine, cervical, anterior approach, with fusion 4.0 FIXED ANGLE SCREWS ANGLE COOK FDA Start: 03-07-2025 Discectomy, spine, cervical, anterior approach, with fusion 4.0 FIXED ANGLE SCREWS COOK FDA Start: 03-07-2025 Discectomy, spine, cervical, anterior approach, with fusion 4.0 FIXED ANGLE SCREWS COOK FDA Start: 03-07-2025 Discectomy, spine, cervical, anterior approach, with fusion 4.0 FIXED ANGLE SCREWS COOK FDA Start: 03-07-2025 Discectomy, spine, cervical, anterior approach, with fusion 4.0 FIXED ANGLE SCREWS COOK FDA Start: 03-07-2025 Discectomy, spine, cervical, anterior approach, with fusion ANATOMIC CERVICAL ALLOGRAFT SPACER (C1889) FDA Start: 03-07-2025 Discectomy, spine, cervical, anterior approach, with fusion ANATOMIC CERVICAL ALLOGRAFT SPACER (C1889) FDA Start: 03-07-2025 Discectomy, spine, cervical, anterior approach, with fusion 2 LEVEL PLATES FDA Start: 03-07-2025 Discectomy, spine, cervical, anterior approach, with fusion PUTTY,BONE 1CC DBX FDA Start: 03-07-2025 Discectomy, spine, cervical, anterior approach, with fusion SUTURE,LIGA CLIP MED [id number] FDA Start: 03-07-2025 Discectomy, spine, cervical, anterior approach, with fusion 4.0 FIXED ANGLE SCREWS ANGLE COOK FDA Start: 03-07-2025 Discectomy, spine, cervical, anterior approach, with fusion 4.0 FIXED ANGLE SCREWS ANGLE COOK FDA Start: 03-07-2025 Discectomy, spine, cervical, anterior approach, with fusion 4.0 FIXED ANGLE SCREWS COOK FDA Start: 03-07-2025 Discectomy, spine, cervical, anterior approach, with fusion 4.0 FIXED ANGLE SCREWS COOK FDA Start: 03-07-2025 Discectomy, spine, cervical, anterior approach, with fusion 4.0 FIXED ANGLE SCREWS COOK FDA Start: 03-07-2025 Discectomy, spine, cervical, anterior approach, with fusion 4.0 FIXED ANGLE SCREWS COOK FDA Start: 03-07-2025 Discectomy, spine, cervical, anterior approach, with fusion ANATOMIC CERVICAL ALLOGRAFT SPACER (C1889) FDA Start: 03-07-2025 Discectomy, spine, cervical, anterior approach, with fusion ANATOMIC CERVICAL ALLOGRAFT SPACER (C1889) FDA Start: 03-07-2025 Discectomy, spine, cervical, anterior approach, with fusion 2 LEVEL PLATES FDA Start: 03-07-2025 Discectomy, spine, cervical, anterior approach, with fusion PUTTY,BONE 1CC DBX FDA Start: 03-07-2025 Discectomy, spine, cervical, anterior approach, with fusion SUTURE,LIGA CLIP MED LT200 FDA Start: 03-07-2025 Discectomy, spine, cervical, anterior approach, with fusion 4.0 FIXED ANGLE SCREWS ANGLE COOK FDA Start: 03-07-2025 Discectomy, spine, cervical, anterior approach, with fusion 4.0 FIXED ANGLE SCREWS ANGLE COOK FDA Start: 03-07-2025 Discectomy, spine, cervical, anterior approach, with fusion 4.0 FIXED ANGLE SCREWS COOK FDA Start: 03-07-2025 Discectomy, spine, cervical, anterior approach, with fusion 4.0 FIXED ANGLE SCREWS COOK FDA Start: 03-07-2025 Discectomy, spine, cervical, anterior approach, with fusion 4.0 FIXED ANGLE SCREWS COOK FDA Start: 03-07-2025 Discectomy, spine, cervical, anterior approach, with fusion 4.0 FIXED ANGLE SCREWS COOK FDA Start: 03-07-2025 Discectomy, spine, cervical, anterior approach, with fusion ANATOMIC CERVICAL ALLOGRAFT SPACER (C1889) FDA Start: 03-07-2025 Discectomy, spine, cervical, anterior approach, with fusion ANATOMIC CERVICAL ALLOGRAFT SPACER (C1889) FDA Start: 03-07-2025 Goals Date Patient Goal Desired Activity /State Functional Status Date Assessment Result Facility 03-08-2025 Functional status Up ad du;[facility] Work Phone: Mental Status Date Assessment Result Facility 03-08-2025 Cognitive function Appropriate;[facility] Work Phone: 03-07-2025 Cognitive function Voice/Name;Touch/Shaki ng [facility] Work Phone: 11-16-2023 Cognitive function Voice/Name [facility] Work Phone: Clinical Notes 05-25-2024 to 04-18-2025 Note Date & Type Note Facility 04-18-2025 Progress note [facility] 04-18-2025 Radiology Diagnostic study note [facility] [address] [place], [place] [address] Cerv Spine 2 or 3 Views MR#: [id number] Acct: [id number] Name: JASMYNEDIANA FLANNERYTCHERROSALIE Rep #: [id number] : 1970 F 55 From: Carl Wilson MD PCP: BAY Bustillo Status: DEP A MB Study:Cerv Spine 2 or 3 Views Date of Exam: 04/18/25 Exam# [id number] Ordering Dr: Ricardo Zapata PROCEDURE: CERV SPINE 2 OR 3 VIEWS 04/18/2025 REASON FOR EXAM: POST OP TECHNIQUE: Procedure Code: RADSPCL Modality: DX Procedure: CERV SPINE 2 OR 3 VIEWS COMPARISON: 03/2025. FINDINGS: C4 through C6 anterior cervical discectomy and fusion. Up to mild disc space narrowing of the non fused levels. Straightening of the normal cervical lordosis. RAD/Cerv Spine 2 or 3 Views IMPRESSION: Intact ACDF. 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 [facility] 03-08-2025 Consult note [facility] 03-08-2025 Discharge summary Note Date/Time March 08, 2025 11:58am [facility] Medical Records Department [address] [place] [address] Instructions for Home/Discharge Instructions 03/08/25 0732 MR#: [id number] Acct: [id number] Name: ROSALIE RANDHAWA Rep #:[id number] : 1970 55 From: Elba MC PCP: BAY Bustillo Status:ADM I NO Discharge Instructions DC O2, CPAP, BIPAP needs Home O2 Discharge instructions: No Follow Up Care Test Results: Test results from this visit will be discussed in further detail at your follow-up appointment, if applicable. Discharge Plan Admission Admit Date/Time: 03/07/25 14:53 Attending Provider: Marcos Monroy Primary Care Provider: Heidy Hernandez Consulting Providers: Zenaida Reynoso Instructions Patient Instructions: Cervical Fusion Dc Additional Instructions / Restrictions: Keep Tegaderm and gauze clean and dry. After 5 days remove the Tegaderm and gauze and cover incision with a Band-Aid. Replace Band-Aid daily thereafter. Wearcervical collar full-time for the first 2 weeks. Eat soft solid foods as neededfor dysphagia. Sleep in a recliner to help with swelling. No bending, lifting,twisting. Follow-up in clinic in 2 weeks. Discharge Orders/Prescriptions Prescriptions: New acetaminophen 500 mg Tablet 500 mg PO Q6H Qty: 30 0RF hydrocodone-acetaminophen 5-325 mg Tablet 1 tab PO Q6H PRN (Reason: pain) 7 Days Qty: 28 0RF methocarbamol 500 mg Tablet 750 mg PO TID PRN (Reason: pain/spasms) Qty: 60 0RF sennosides-docusate sodium [Stimulant Laxative Plus] 8.6-50 mg Tablet 2 tab PO BID PRN (Reason: constipation) Qty: 14 0RF meloxicam 15 mg Tablet 15 mg PO DAILY Qty: 30 0RF Continued Probiotic Pearls Women's 1 billion cell capsule,delayed release(DR/EC) 1 cap PO DAILY Nurtec ODT 75 mg tablet,disintegrating 75 mg PO DAILY PRN (Reason: migraine) Qulipta 60 mg tablet 60 mg PO DAILY sertraline 100 mg tablet 100 mg PO QHS levothyroxine [Synthroid] 100 mcg tablet 100 mcg PO DAILY Qty: 90 2RF Held Contrave 8-90 mg tablet extended release 2 tab PO BID 90 Days Qty: 360 0RF Hold Instructions: Resume on 03/15/25. hold until done taking hydrocodone-acetaminophen Discontinued methocarbamol 500 mg tablet 500 mg PO TID PRN (Reason: pain/spasms) Qty: 60 0RF Other Ambulatory Orders: 12 Lead EKG (Routine) Timeframe: 1 Day Location: None Selected Ordered By: Dr. 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 Zenaida Reynoso MD ~ Signed [facility] Work Phone: 1(326) 789-370809-03-2025 Discharge summary [facility] Medical Records Department [address] [facility] [place] [address] Instructions for Home/Discharge Instructions 03/08/25 0732 MR#: [id number] Acct: [id number] Name: JASMYNE GONZALESROSALIE EVANS Rep #:[id number] : 1970 55 From: Elba MC PCP: BAY Bustillo Status:ADM I NO Discharge Instructions DC O2, CPAP, BIPAP needs Home O2 Discharge instructions: No Follow Up Care Test Results: Test results from this visit will be discussed in further detail at your follow- up appointment, if applicable. Discharge Plan Admission Admit Date/Time: 03/07/25 14:53 Attending Provider: Marcos Monroy Primary Care Provider: Heidy Hernandez Consulting Providers: Zenaida Reynoso Instructions Patient Instructions: Cervical Fusion Dc Additional Instructions / Restrictions: Keep Tegaderm and gauze clean and dry. After 5 days remove the Tegaderm and gauze and cover incision with a Band-Aid. Replace Band-Aid daily thereafter. Wearcervical collar full-time for the first 2 weeks. Eat soft solid foods as neededfor dysphagia. Sleep in a recliner to help with swelling. No bending, lifting,twisting. Follow-up in clinic in 2 weeks. Discharge Orders/Prescriptions Prescriptions: New acetaminophen 500 mg Tablet 500 mg PO Q6H Qty: 30 0RF hydrocodone-acetaminophen 5-325 mg Tablet 1 tab PO Q6H PRN (Reason: pain) 7 Days Qty: 28 0RF methocarbamol 500 mg Tablet 750 mg PO TID PRN (Reason: pain/spasms) Qty: 60 0RF sennosides-docusate sodium [Stimulant Laxative Plus] 8.6-50 mg Tablet 2 tab PO BID PRN (Reason: constipation) Qty: 14 0RF meloxicam 15 mg Tablet 15 mg PO DAILY Qty: 30 0RF Continued Probiotic Pearls Women's 1 billion cell capsule,delayed release(DR/EC) 1 cap PO DAILY Nurtec ODT 75 mg tablet,disintegrating 75 mg PO DAILY PRN (Reason: migraine) Qulipta 60 mg tablet 60 mg PO DAILY sertraline 100 mg tablet 100 mg PO QHS levothyroxine [Synthroid] 100 mcg tablet 100 mcg PO DAILY Qty: 90 2RF Held Contrave 8-90 mg tablet extended release 2 tab PO BID 90 Days Qty: 360 0RF Hold Instructions: Resume on 03/15/25. hold until done taking hydrocodone-acetaminophen Discontinued methocarbamol 500 mg tablet 500 mg PO TID PRN (Reason: pain/spasms) Qty: 60 0RF Other Ambulatory Orders: 12 Lead EKG (Routine) Timeframe: 1 Day Location: None Selected Ordered By: Dr. Marcos Monroy Referrals / Follow Up: Oleksandr Holbrook MD [Med Staff - Active Staff] - Disposition Disposition (needs filled in before D/C Order can be placed): Home, Self Care 03/08/25 1158Caitalfie MC CC: GROUNDSKEEPING MAINTENANCE WORKER-C Heidy Hernandez; Dr. Zenaida Reynoso MD ~ Signed [facility]09-03-2025 Radiology Diagnostic study note [facility] [address] [place] [address] Cerv Spine 2 or 3 Views MR#: [id number] Acct: [id number] Name: ROSALIE RANDHAWA Rep #: [id number] : 1970 F 55 From: Cali Garcia MD PCP: BAY Bustillo Status: ADM I NO Study:Cerv Spine 2 or 3 Views Date of Exam: 03/08/25 Exam# [id number] Ordering Dr: Ricardo Zapata PROCEDURE: CERV SPINE 2 OR 3 VIEWS 03/08/2025 REASON FOR EXAM: S/P CERVICAL FUSION. TECHNIQUE: Procedure Code: RADSPCL Modality: DX Procedure: CERV SPINE 2 OR 3 VIEWS COMPARISON: MRI of the cervical spine on 12/09/2024. Radiographs on 10/13/2024. FINDINGS: Unremarkable spinal fusion metallic metallic plate and screws at C4, C5 and C6 levels. Unremarkable disc spacer at C4-C5. Unremarkable disc spacer at C5-C6. Soft tissue edema and swelling, benign surgical finding. There are diffuse spondylotic changes. Findings are demonstrated to by diffuse disc space narrowing, osteophyte formation and degenerative endplate sclerosis. There is diffuse facet joint arthropathy with secondary bilateral neural foramina narrowing. No fracture or dislocation is seen. No aggressive lytic or blastic bony lesion is noted. RAD/Cerv Spine 2 or 3 Views IMPRESSION: Unremarkable spinal fusion metallic plate and screws at C4, C5 and C6 levels. Unremarkable disc spacer at C4-C5. Unremarkable disc spacer at C5-C6. Soft tissue edema and swelling, benign surgical finding. Reading Location: [place] [address] CC: XIOMARA-C Heidy Hernandez; JESUSITA Palacios ~ Boiler Tube Reamer: Signed [facility]09-02-2025 Consult note Author Estephania Castano [facility] Note Date/Time March 07, 2025 5:46pm [facility] Medical Records Department [address] [place] [id number] Consultation - Hospitalist 03/07/25 1742 MR#: [id number] Acct: [id number] Name: ROSALIE RANDHAWA Rep #:[id number] : 1970 55 From: Estephania Castano MD PCP: BAY Bustillo Status:ADM I NO Location: MS3 [id number] Assessment & Plan Assessment/Plan (1) Hypothyroidism: PLAN: Plan #Hypothyroidism -Continue Synthroid #Depression/anxiety -Continue home medications #CALI - Patient has home NIPPV but given positioning of collar unsure how well this would be able to be accommodated given full facemask on home machine and this had not been brought in from home - Family member at bedside reports patient can go a night without using the CPAPand does okay, she will be tired the next day but otherwise no complaints - Discussed with nurse, advised to keep patient in a semiupright position - If needed can have respiratory try to fit a mask/attempt to accommodate however given report that she can go for a day without NIPPV without deleteriousside effects we will assess tolerability, again advised that she is not laid in flat position # History of migraines - Noted - Takes as needed Rimegepant on outpatient basis #C4-5 spondylolisthesis, 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 Monroy 03/07/25 - Management/pain management per primary #DVT ppx: Timing and agent at discretion of primary Estephania Castano MD Time spent in the patient's overall evaluation, decision-making process, review of diagnostic data, adjustment of management, discussion with other providers, nursing and ancillary staff involved in patient's care documentation, 16 Minutes HPI Consult Data Date of Consult: 03/07/25 HPI Narrative Reason for Consultation: Post op med management HPI Narrative: ROSALIE GONZALES, is a 55-year-old female history of hypothyroidism, anxiety, depression, migraines, CALI who presented [facility] 03/07/2025 for anterior cervical disc fusion. Hospitalist consulted postoperatively for medical management. Patient evaluated at bedside. Patient just arrived from the floor and had received pain medication, tired, would wake up but would quickly fall back asleep. [facility] Medical History Wears glasses Depression Low iron Pulmonary embolism Easy bruising Restless legs Injury of back Vertigo History of IBS Gastric reflux Non-smoker Asthma CPAP (continuous positive airway pressure) dependence Shortness of breath on exertion History of echocardiogram History of stress test Hx of colonic polyps Family history of colon cancer Colon cancer screening Elevated liver enzymes Mitral valve disease Obesity (BMI 30-39.9) Family history of pancreatic cancer Bilateral foot pain Skin mole Right hip pain Polyarthropathy Encounter for vitamin deficiency screening Left knee pain Change in skin mole Hypothyroidism Chronic back pain Foot pain Vitamin D deficiency Anxiety Migraine Mitral valve prolapse Hemorrhoids Cervical radiculopathy Pain in thoracic spine Myalgia Fatigue Post-menopausal Home Medications ?Medication ?Instructions ?Recorded ?Last Taken ?Type L.acidophilus-L.plantarum-L.rhamnosus 1 cap PO DAILY 0 01/16/22 Unknown History 1 billion cell capsule,delay rel (Probiotic Pearls Women's) Synthroid 100 mcg tablet 100 mcg PO DAILY #90 tabs 03/07/25 Rx (levothyroxine) naltrexone 8 mg-bupropion 90 mg 2 tab PO BID 3 months #360 tabs 01/25/25 03/06/25 Rx tablet,extended release (Contrave) methocarbamol 500 mg tablet 500 mg PO TID PRN pain/spa sms #60 02/13/25 03/06/25 Rx tabs atogepant 60 mg tablet (Qulipta) 60 mg PO DAILY 03/06/25 History rimegepant 75 mg disintegrating 75 mg PO DAILY PRN fermin randy 02/17/25 02/28/25 History tablet (Nurtec ODT) sertraline 100 mg tablet 100 mg PO QHS 02/17/2503/06 History Allergy/AdvReac Type Severity Reaction Status Date / Time pseudoephedrine Allergy Unknown Other Verified 03/07/25 10:15 sumatriptan (From Imitrex) AdvReac Unknown Swelling Verified 03/07/25 10:15 Family History Grandmother Colon cancer at 51yrs Diabetes Breast cancer Grandfather Heart disease Mother Thyroid disorder Sister Thyroid disorder Father Hyperlipemia Uncle Cancer pancreatic Surgical History Hx of colonoscopy History of colonoscopy History of hysterectomy History of cholecystectomy Hx of tubal ligation Social History household members: spouse current occupational status: employed 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[employer] Smoking Status: Never smoker alcohol intake: current alcohol intake frequency: holidays/special occasions only substance use type: does not use what type of physical activity do you participate in: none ROS ROS Narrative Unable to obtain secondary to patient quickly falling back asleep Physical Exam Narrative General: Resting comfortably, snoring HEENT: Atraumatic, normocephalic Eyes: extraocular movements grossly intact Neck: Patient has collar in place Respiratory: normal respiratory effort, no overt wheezes on auscultation Cardiovascular: no edema appreciated GI: nondistended Extremities: Moving all extremities Neuro: No overt focal neurological deficits though patient tired, not waking up for full neuroexam Psych: Attempts to be cooperative but tired Lab / Micro Data 02/23/25 07:12 02/23/25 07:12 Imaging Radiology Impression Cervical Spine X-Ray 03/07/25 12:45 IMPRESSION: As per findings. Reading Location: [id number] Charges/Coding Visit Charges Office Visits / Consults: 86069 OV L2 Est 10min 03/07/25 1746 <Electronically signed by Estephania Castano MD> Cosigner Signature (if applicable): CC: BAY Hernandez; Dr. Marcos Monroy MD~ Signed [facility] Work Phone: 1(750) 520-725009-02-2025 Consult note Author Constantino [facility] Note Date/Time March 07, 2025 4:06pm [facility] Medical Records Department [address] [place] [address] Anesthesia Postop Eval II 03/07/25 1604 MR#: [id number] Acct: [id number] Name: ROSALIE RANDHAWA Rep #:[id number] : 1970 55 From: Constantino Chong MD PCP: BAY Bustillo Status:ADM I NO Y Race: C Location: [facility] [place] MS312 -1 Anesthesia Postop Eval I Sum Postop Eval Completion status Anesthesia document: Postop Eval 1 completed: Yes Anesthesia Postop Eval I Summary Anesthesia Postop Eval I Summary: Anesthesia Postop Eval I: Assessment Summary Airway patent Yes 03/07/25 15:00 BAD CREDIT COLLECTOR.SKOBY Spontaneous unlabored Yes 03/07/25 15:00 BAD CREDIT COLLECTOR.SKOBY respirations Mental status Awake,Calm 03/07/25 15:00 BAD CREDIT COLLECTOR.SKOBY nausea No 03/07/25 15:00 BAD CREDIT COLLECTOR.SKOBY Vomiting No 03/07/25 15:00 BAD CREDIT COLLECTOR.PASCUAL Anesthesia Postop Eval I: Fluid Summary Crystalloid volume administer 2,000 03/07/25 15:00 BAD CREDIT COLLECTOR.PASCUAL (ml) Colloids volume administered ( ml) Blood Product volume administered (ml) Total IV fluid infused 2,000 03/07/25 15:00 BAD CREDIT COLLECTOR.PASCUAL Anesthesia Postop Eval I: Summary Notes Anesthesia Complication No 03/07/25 15:00 BAD CREDIT COLLECTOR.PASCUAL Anesthesia Complication Comment: Post-operative progress note Anesthesia: Postop Eval II Evaluation Mental status: Awake Pain Level: 4 nausea: No Vomiting: No Complications Anesthesia Complication: No 03/07/25 1606 <Electronically signed by Constantino recinos MD> Date _ Constantino Chong MD Cosigner Signature: Date CC: ~ Signed [facility] Work Phone: 1(429) 776-356109-02-2025 Consult note [facility] Medical Records Department [address] [place] [address] Consultation - Hospitalist 03/07/25 1742 MR#: [id number] Acct: [id number] Name: ROSALIE RANDHAWA Rep #:[id number] : 1970 55 From: Estephania Castano MD PCP: BAY Bustillo Status:ADM I NO Location: [place] [address] Assessment & Plan Assessment/Plan (1) Hypothyroidism: PLAN: Plan #Hypothyroidism -Continue Synthroid #Depression/anxiety -Continue home medications #CALI - Patient has home NIPPV but given positioning of collar unsure how well this would be able to be accommodated given full facemask on home machine and this had not been brought in from home - Family member at bedside reports patient can go a night without using the CPAPand does okay, she will be tired the next day but otherwise no complaints - Discussed with nurse, advised to keep patient in a semiupright position - If needed can have respiratory try to fit a mask/attempt to accommodate however given report thatanuj can go for a day without NIPPV without deleteriousside effects we will assess tolerability, again advised that she is not laid in flat position # History of migraines - Noted - Takes as needed Rimegepant on outpatient basis #C4-5 spondylolisthesis, 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 Monroy 03/07/25 - Management/pain management per primary #DVT ppx: Timing and agent at discretion of primary Estephania Castano MD Time spent in the patient's overall evaluation, decision-making process, review of diagnostic data,adjustment of management, discussion with other providers, nursing and ancillary staff involved in patient's care documentation, 16 Minutes HPI Consult Data Date of Consult: 03/07/25 HPI Narrative Reason for Consultation: Post op med management HPI Narrative: ROSALIE GONZALES, is a 55-year-old female history of hypothyroidism, anxiety, depression, migraines, CALI who presented [facility] 03/07/2025 for anterior cervical disc fusion. Hospitalist consulted postoperatively for medical management. Patient evaluated at bedside. Patient sam steel arrived from the floor and had received pain medication, tired, would wake up but would quickly fall back asleep. [facility] Medical History Wears glasses Depression Low iron Pulmonary embolism Easy bruising Restless legs Injury of back Vertigo History of IBS Gastric reflux Non-smoker Asthma CPAP (continuous positive airway pressure) dependence Shortness of breath on exertion History of echocardiogram History of stress test Hx of colonic polyps Family history of colon cancer Colon cancer screening Elevated liver enzymes Mitral valve disease Obesity (BMI 30-39.9) Family history of pancreatic cancer Bilateral foot pain Skin mole Right hip pain Polyarthropathy Encounter for vitamin deficiency screening Left knee pain Change in skin mole Hypothyroidism Chronic back pain Foot pain Vitamin D deficiency Anxiety Migraine Mitral valve prolapse Hemorrhoids Cervical radiculopathy Pain in thoracic spine Myalgia Fatigue Post-menopausal Home Medications ?Medication ?Instructions ?Recorded ?Last Taken ?Type L.acidophilus-L.plantarum-L.rhamnosus 1 cap PO DAILY 0 01/16/22 Unknown History 1 billion cell capsule,delay rel (Probiotic Pearls Women's) Synthroid 100 mcg tablet 100 mcg PO DAILY #90 tabs 03/07/25 Rx (levothyroxine) naltrexone 8 mg-bupropion 90 mg 2 tab PO BID 3 months #360 tabs 01/25/25 03/06/25 Rx tablet,extended release (Contrave) methocarbamol 500 mg tablet 500 mg PO TID PRN pain/spa sms #60 02/13/25 03/06/25 Rx tabs atogepant 60 mg tablet (Qulipta) 60 mg PO DAILY 03/06/25 History rimegepant 75 mg disintegrating 75 mg PO DAILY PRN fermin randy 02/17/25 02/28/25 History tablet (Nurtec ODT) sertraline 100 mg tablet 100 mg PO QHS 02/17/2503/06 History Allergy/AdvReac Type Severity Reaction Status Date / Time pseudoephedrine Allergy Unknown Other Verified 03/07/25 10:15 sumatriptan (From Imitrex) AdvReac Unknown Swelling Verified 03/07/25 10:15 Family History Grandmother Colon cancer at 51yrs Diabetes Breast cancer Grandfather Heart disease Mother Thyroid disorder Sister Thyroid disorder Father Hyperlipemia Uncle Cancer pancreatic Surgical History Hx of colonoscopy History of colonoscopy History of hysterectomy History of cholecystectomy Hx of tubal ligation Social History household members: spouse current occupational status: employed 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[employer] Smoking Status: Never smoker alcohol intake: current alcohol intake frequency: holidays/special occasions only substance use type: does not use what type of physical activity do you participate in: none ROS ROS Narrative Unable to obtain secondary to patient quickly falling back asleep Physical Exam Narrative General: Resting comfortably, snoring HEENT: Atraumatic, normocephalic Eyes: extraocular movements grossly intact Neck: Patient has collar in place Respiratory: normal respiratory effort, no overt wheezes on auscultation Cardiovascular: no edema appreciated GI: nondistended Extremities: Moving all extremities Neuro: No overt focal neurological deficits though patient tired, not waking up for full neuroexam Psych: Attempts to be cooperative but tired Lab / Micro Data 02/23/25 07:12 02/23/25 07:12 Imaging Radiology Impression Cervical Spine X-Ray 03/07/25 12:45 IMPRESSION: As per findings. Reading Location: [id number] Charges/Coding Visit Charges Office Visits / Consults: 21173 OV L2 Est 10min 03/07/25 1746 Cosigner Signature (if applicable): CC: BAY Hernandez; Dr. Marcos Monroy MD~ Signed [facility]09-02-2025 Consult note Author Amy Gillespie [facility] Note Date/Time March 07, 2025 3:00pm [facility] Medical Records Department [address] [place] [address] Anesthesia Postop Eval I 03/07/25 1459 MR#: [id number] Acct: [id number] Name: ROSALIE RANDHAWA Rep #:[id number] : 1970 55 From: Amy griffin CRNA PCP: BAY Bustillo Status:REG S DC Y Race: C Location: [place] [address] Anesthesia: Postop Eval I Current Vital Signs Temperature: 97 F Pulse Rate: 74 Blood Pressure: 116/71 Respiratory Rate: 16 Pulse Ox: 95 Oxygen Delivery Method: Room Air Assessment Airway patent: Yes Spontaneous unlabored respirations: Yes Mental status: Awake and Calm nausea: No Vomiting: No Anesthesia Complication: No Fluid Hydration Crystalloid volume administer (ml): 2,000 Total IV fluid infused: 2,000 Progress Note Anesthesia document: Postop Eval 1 completed: Yes 03/07/25 1500 <Electronically signed by Amy holman CRNA> Date _ Amy Gillespie CRNA Cosigner Signature: Date CC: ~ Signed [facility] Work Phone: 1(753) 182-652509-02-2025 Consult note [facility] Medical Records Department [address] [place] [address] [place] [address] Anesthesia Postop Eval II 03/07/25 1604 MR#: [id number] Acct: [id number] Name: ROSALIE RANDHAWA Rep #:[id number] : 1970 55 From: Constantino Chong MD PCP: BAY Bustillo Status:ADM I NO Y Race: C Location: [place] [address] Anesthesia Postop Eval I Sum Postop Eval Completion status Anesthesia document: Postop Eval 1 completed: Yes Anesthesia Postop Eval I Summary Anesthesia Postop Eval I Summary: Anesthesia Postop Eval I: Assessment Summary Airway patent Yes 03/07/25 15:00 BAD CREDIT COLLECTOR.ALONDRAOBDeepak Spontaneous unlabored Yes 03/07/25 15:00 BAD CREDIT COLLECTOR.PASCUAL respirations Mental status Awake,Calm 03/07/25 15:00 BAD CREDIT COLLECTOR.ALONDRAOBDeepak nausea No 03/07/25 15:00 BAD CREDIT COLLECTOR.ALONDRAOBDeepak Vomiting No 03/07/25 15:00 BAD CREDIT COLLECTOR.ALONDRAOBDeepak Anesthesia Postop Eval I: Fluid Summary Crystalloid volume administer 2,000 03/07/25 15:00 BAD CREDIT COLLECTOR.ALONDRAOBY (ml) Colloids volume administered ( ml) Blood Product volume administered (ml) Total IV fluid infused 2,000 03/07/25 15:00 BAD CREDIT COLLECTOR.ALONDRAOBDeepak Anesthesia Postop Eval I: Summary Notes Anesthesia Complication No 03/07/25 15:00 BAD CREDIT COLLECTOR.ALONDRAOBDeepak Anesthesia Complication Comment: Post-operative progress note Anesthesia: Postop Eval II Evaluation Mental status: Awake Pain Level: 4 nausea: No Vomiting: No Complications Anesthesia Complication: No 03/07/25 1606 jorje ESTRADA> Date _ Constantino Osborneign Signature: Date CC: ~ Signed [facility]09-02-2025 Radiology Diagnostic study note [facility] [address] [place] [address] Cerv Spine 2 or 3 Views MR#: [id number] Acct: [id number] Name: ROSALIE RANDHAWA Rep #: [id number] : 1970 F 55 From: Royce Grider MD PCP: BAY Bustillo Status: ADM I NO Study:Cerv Spine 2 or 3 Views Date of Exam: 03/07/25 Exam# [id number] Ordering Dr: Palmer Monroy MD PROCEDURE: CERV SPINE 2 OR 3 VIEWS 03/07/2025 REASON FOR EXAM: ANTERIOR CERVICAL FUSION C4-5 C5-6 TECHNIQUE: Procedure Code: RADSPCL Modality: DX Procedure: CERV SPINE 2 OR 3 VIEWS COMPARISON: Cervical spine series, 04/08/2025 FINDINGS: 2 images were obtained intraoperatively for ACDF, C4 through C6. Fluoro time: 12.3 seconds. Dose: 0.67 mGy. RAD/Cerv Spine 2 or 3 Views IMPRESSION: As per findings. Reading Location: [id number] CC: GROUNDSKEEPING MAINTENANCE WORKER-Katherine Hernandez; Dr. Marcos Monroy MD ~ Boiler Tube Reamer: Signed [facility] Work Phone: 1(693) 332-785009-02-2025 Consult note [facility] Medical Records Department [address] [place] [address] Anesthesia Postop Eval I 03/07/25 1459 MR#: [id number] Acct: [id number] Name: ROSALIE RANDHAWA Rep #:[id number] : 1970 55 From: Amy griffin CRNA PCP: Heidy Tannhof, GROUNDSKEEPING MAINTENANCE WORKER-C Status:REG S DC Y Race: C Location: [place] [address] Anesthesia: Postop Eval I Current Vital Signs Temperature: 97 F Pulse Rate: 74 Blood Pressure: 116/71 Respiratory Rate: 16 Pulse Ox: 95 Oxygen Delivery Method: Room Air Assessment Airway patent: Yes Spontaneous unlabored respirations: Yes Mental status: Awake and Calm nausea: No Vomiting: No Anesthesia Complication: No Fluid Hydration Crystalloid volume administer (ml): 2,000 Total IV fluid infused: 2,000 Progress Note Anesthesia document: Postop Eval 1 completed: Yes 03/07/25 1500 hceriki BAD CREDIT COLLECTOR> Date _ Amy Gillespie BAD CREDIT COLLECTOR Cosigner Signature: Date CC: ~ Signed [facility]09-02-2025 Procedure note [facility] Medical Records Department [address] [place] [address] Operative Report 03/07/25 1453 MR#: [id number] Acct: [id number] Name: ROSALIE RANDHAWA Rep #:[id number] : 1970 55 From: Marcos Monroy MD PCP: BAY Bustillo Status:REG S DC Location: [place] [address] Procedures Musculoskeletal 20xxx-29xxx: Other Procedure See Report Operative Report (Standard) Operative Information Date of Procedure: 03/07/25 Pre-Operative Diagnosis: C4-5 spondylolisthesis, C4-6 disc degeneration with stenosis, radiculomyelopathy Post-Operative Diagnosis: Same Surgery/Procedure Performed: C4-6 ACDF medical chemist: Yes Fine Arts Model: Elba Zapata Tasks completed by airline pilot/first officer: Closing, Removing tissue, Implanting device, Hemostasis: Electrocautery and Retracting Type of Anesthesia: General RN Documented Start/Stop Times: Operation Date: 03/07/25 12:00 Case Time Into Pre-Op 03/07/25 09:58 Out of Pre-Op 03/07/25 12:00 Anesthesia Start 03/07/25 12:08 Into Room 03/07/25 12:08 Procedure Start 03/07/25 12:48 Procedure End 03/07/25 14:34 Anesthesia End 03/07/25 14:51 Out of Room 03/07/25 14:51 Procedure Start Time: 12:48 Procedure Stop Time: 14:34 Select all DRAINS/GRAFTS/IMPLANTS that apply: Drains Drain details: [place] , Graft Graft details: Cornerstone structural cortical cancellous strut allograft,DBX and Implanted device Implanted device details: Medtronic [place] Elite plate instrumentation Estimated Blood Loss: 30 cc Specimen collected: No Description of surgery: Preoperative diagnosis: C4-5 spondylolisthesis, C4-6 disc degeneration with stenosis, radiculomyelopathy Postoperative diagnosis: Same Name of procedure: C4-6 anterior cervical discectomy and fusion with plate instrumentation - Anterior cervical fusion C4-5, CPT code 25712 - Anterior plate instrumentation C4-6, CPT code 59873/59 - Anterior cervical fusion C5-6, CPT code 48388/51 -C4-5 structural allograft bone with DBX, CPT code 88178 - C5-6 structural allograft bone with DBX, CPT code 76156 Attending surgeon: Marcos Monroy M.D. Anesthesia: Gen. endotracheal Estimated blood loss: 30 mL Complications: None Instrumentation used: Medtronic [place] Elite plate, LASR corticocancellous block Indications: The patient is a pleasant 55-year-old lady who presented with neck pain, radiating pain to upper extremities, difficulty with dexterity and balance. MRI showed C4-5 spondylolisthesis, C4-6 disc degeneration with stenosis. After prolonged course of nonsurgical treatment, the patient requested surgical treatment. All risks and benefits of the procedure were explained to the patient. The risks include but are not limited to infection, bleeding, injury tonerves and vessels, vertebral artery injury, spinal cord injury, paralysis, vocal cord paralysis, injury to esophagus, pseudoarthrosis, need for further procedures, adjacent segment degeneration. Procedure: The patient was identified in the preoperative suite using unique patient identifiers. Skin was marked consent was taken and all questions were answered. The patient was then brought back to the operative room and a timeout was performed. General endotracheal anesthesia was given. Intraoperative neuro monitoring leads were applied. The patient was carefully positioned supine on a regular OR table. A lateral view with a C-arm was done to identify the level andto define the incision. The anterior neck was then prepped and draped in the usual fashion. A final timeout was then performed. A transverse skin incision was taken to the left of midline. Subcutaneous tissue was then divided with Bovie. Platysma was identified and cut along the incision with scissors. The fascial interval between the sternocleidomastoid and the larynx was developed. Omohyoid was identified and retracted. The esophagus with the larynx was retracted medially to reach the prevertebral fascia. Marker x-ray was performedwith bent spinal needle and disc space and levels were confirmed. Longus coli muscle was elevated on both sides at and above and below C4-6 discs. Self-retaining retractors were then placed. A long handle knife was then used to perform annulotomyat C4-5. Disc fragments were removed with the pituitary. Kiester pins were placed in C4 and C5 for disc distraction. Curettes and bur wasutilized to remove cartilage from the endplates. Discectomy wasperformed laterally up to the uncovertebral joints. Posterior osteophytes were thinned down with the bur and adequate decompression in the central and foraminal areas were performed and PLL was thinned out. Once the disc space was prepared, trials of various sizes were utilized. Thorough irrigation was given. 7 mm LASR cortical cancellous allograft bone large footprint was then fashioned in such a way that concavities were burred out inferiorly and superiorly and half cc of DBX (demineralized bone matrix) wassqueezed into the cancellous portion. The graft was then inserted into the C4-5 disc space. The retractors were then repositioned and the procedure was repeated for C5-6 disc with complete discectomy. Graft size was 6 mm at with large footprint at C5-6. The grafts were found to be in good apposition with good pullout strength. A 40 mm Medtronic [place] Elite plate was then fixed toC4-6 with 16 mm screws. A lateral x-ray was then taken to check the length of the screws. Both AP and lateral x-rays showed good positioning of plate and screws. The locking mechanism over the screw heads was then turned. Thorough irrigation was again given. Hemostasis was achieved. A [place] drain was then inserted. Closure was done with 3-0 Vicrylfor the platysma and subcutaneous tissue layers and 4-0 Monocryl for the skin. Closure was done around the drain. Steri-Strips were applied and dressing was done with 4 x 4 gauze and Tegaderm. A cervical collar was then applied. The patient was then woken up from anesthesia extubated and taken to PACU in stable condition. From here, the patient will be transitioned to the floor. Intraoperative neuro monitoring was performed throughout this procedure. Motor evoked potentials were run periodically. All potentials remained at baseline throughout the procedure. I was present forthe entire surgery and performed the surgery myself. Textile Converter Elba Zapata PA-C. My physician printer floor covering assistant was a vital part of this case. They were important in appropriate retraction during the case, and protection of soft tissues during the procedure.Their intimate knowledge of thecase and my steps aided in safe and expedient completion of the procedure as well as appropriate position of the patient during the surgery. They were also vital in assisting with closure under my direct supervision. Surgical Findings: See operative note Complications Complications: No 03/07/25 1456 Cosigner Signature (if applicable): CC: BAY Hernandez; Dr. Marcos Monroy MD~ Signed [facility]09-02-2025 History and physical note Author Marcos Porfirio [facility] Note Date/Time March 07, 2025 12:00pm [facility] Medical Records Department [address] [place] [address] History & Physical Exam 03/07/25 1200 MR#: [id number] Acct: [id number] Name: ROSALIE RANDHAWA Rep #:[id number] : 1970 55 From: Marcos Monroy MD PCP: BAY Bustillo Status:REG S DC Location: [facility]-1 History and Physical Date of Admission: 03/07/25 MR#: [id number] Acct: [id number] Name: ROSALIE RANDHAWA Rep #: [id number] : 1970 Provider: Dr. Marcos Monroy MD Age/Sex: 55/F Location: [facility] [place] Status: Signed Intake Vital Signs 10/14/2507:05 02/22/2508:04 Height 5 ft 4 in 5 ft 4 in Weight: 182 lb 184 lb 4 oz BMI 31.2 31.6 Intake Visit Reasons: cervical spine Chief Complaint: Cervical spine pre-op Accompanied by: Is patient in pain?: Yes Pain scale (1-10): 10 Allergies pseudoephedrine Allergy (Unknown, Verified 02/21/25 08:05) Othersumatriptan (From Imitrex) Adverse Reaction (Unknown, Verified 02/21/25 08:05) Swelling Medications ?Medication ?Instructions ?Recorded ?Confirmed ?Type L.acidophilus-L.plantarum-L.rhamnosus 1 cap PO DAILY 01/16/22 02/21/25 History 1 billion cell capsule,delay rel (Probiotic Pearls Women's) Synthroid 100 mcg tablet 100 mcg PO DAILY #90 tabs 12/06/2402/21 Rx (levothyroxine) naltrexone 8 mg-bupropion 90 mg 2 tab PO BID 3 months #360 tabs 01/25/25 02/21/25 Rx tablet,extended release (Contrave) methocarbamol 500 mg tablet 500 mg PO TID PRN pain/spasms #60 02/21/25 Rx tabs atogepant 60 mg tablet (Qulipta) 60 mg PO DAILY 02/17/25 02/21/25 History rimegepant 75 mg disintegrating 75 mg PO DAILY PRN migraine 02/17/25 History tablet (Nurtec ODT) sertraline 100 mg tablet 100 mg PO QHS 02/17/25 02/21/25 History PFSH Medical History Wears glasses Depression Low iron Pulmonary embolism Easy bruising Restless legs Injury of back Vertigo History of IBS Gastric reflux Non-smoker Asthma CPAP (continuous positive airway pressure) dependence Shortness of breath on exertion History of echocardiogram History of stress test Hx of colonic polyps Family history of colon cancer Colon cancer screening Elevated liver enzymes Mitral valve disease Obesity (BMI 30-39.9) Family history of pancreatic cancer Bilateral foot pain Skin mole Right hip pain Polyarthropathy Encounter for vitamin deficiency screening Left knee pain Change in skin mole Hypothyroidism Chronic back pain Foot pain Vitamin D deficiency Anxiety Migraine Mitral valve prolapse Hemorrhoids Cervical radiculopathy Pain in thoracic spine Myalgia Fatigue Post-menopausal Surgical History Hx of colonoscopy History of colonoscopy History of hysterectomy History of cholecystectomy Hx of tubal ligation Family History Grandmother Colon cancer at 51yrs Diabetes Breast cancerGrandfather Heart diseaseMother Thyroid disorderSister Thyroid disorderFather HyperlipemiaUncle Cancer pancreatic Social History household members: spouse current occupational status: employed 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 Marcos Monroy MD 02/21/25 0755. Part of today?s visit was documented by Marcia Khan ATC, acting as scribe. ROSALIE GONZALES is a 55 year old F here today for pre-op for anterior cervical disc fusion C4-5 and C5-6 DOS 03/07/2025. Patient states her pain has been horrible the last week or so. She states she has had horrible migraines andpain. She denies any new injuries or accidents that would have caused the pain to worsen. She denies any recent injections. The patient is a 55-year-old female presenting for pre-operative evaluation and management of cervical radiculopathy. The patient reports experiencing constant pain and tightness in her shoulders, with a limited range of motion and frequent headaches, which have been persistent over the past week. She also notes a loss of strength in her hands, more pronounced on the left side, despite being right-handed. The patient has a history of mitral valve prolapse, diagnosed at the age of 27, for which she has not been under the care of a business development consultant recently. Her primary care physician has noted a slight murmur, but no significant concerns have been raised. She also has a history of sleep apnea, managed by a proj engineer, and has been cleared for surgery by her proj engineer. - Musculoskeletal: Reports constant shoulder pain and tightness, limited range of motion. - Neurological: Reports frequent headaches and loss of strength in hands, more on the left side. - Cardiovascular: Denies any new cardiac symptoms, reports history of mitral valve prolapse. - Respiratory: Reports history of sleep apnea, denies any new respiratory symptoms. Attestation: Documentation on this patient encounter was supported using ambient scribe technology/ voice AI technology. The patient consented to recording for the purpose of documenting the encounter. Provider reviewed content of the generatednote prior to signature. 12/13/24: ROSALIE GONZALES is a 54 year old F here today for MRI review of her cervical spine. She states that her tightness is less severe because of the muscle relaxer we prescribed her last time. She denies recent injection for the neck. Feels like she is drifting to the side more when walking and does dropitems out of her hand such as a bowl. Not changing over several years. No diabetes, no heart or lung issues, no blood thinners. Sees pulmonology at the hospital for sleep apnea. No O2. HPI from 10/13/24: The pain is in the back of the neck. The pain starts at the janice and then runs all the way down to the the right and left side of the shoulder, the left side feels the worst. Patient states it feels like there is akink in the neck.Gets numbness in her shoulder blades and into her deltoids and will occasionally get pain to her dorsal forearm and wrist. No balance issues. No dexterity issues but feels like her hands are weaker. This has been going on since she was a teenager. She doesn't remember injuring it. She woke up one morning and she couldn't turn her head. Over the years this has been gradually getting worse, with it worsening over the last 3 weeks. Denies any surgery, it makes it difficult through out the day because she watches her grandson and doesa lot of lifting. The pain is so bad it makes her feel sick. The pain gets worsewhen she turns her head to the left. Patient got a massage on Thursday, and it took a couple days to work. Her massage therapist stated that her neck and shoulders were really tight. Patient did see Dr. Davis for her tailbone and he stated that he could only inject 2 areas. Patient takes advil to less the intensity, but the pain is still there. No neck injections. Last injection was ayear and half ago, no significant benefit. The patient has seen physical therapy late last year in April/May for her neck and completed 3 weeks oftherapy with 2 sessions per week. She was then given a guided home exercise program. Patient was on blood thinners, but she stopped taking them in April. She had a cosmetic surgery and got a blood clot. Patient had to be on for 6 months. No diabetes. Denies any smoking, or drugs. Patient states that she gets numbness and tingling in the left arm and hands. It runs down the whole left arm. Ortho Exam General General: Yes no acute distress Neurologic: Yes alert and Yes oriented x3 Psychologic: Yes reasonable and appropriate Spine SPINE TESTING CERVICAL THORACIC LUMBAR Musculoskeletal Strength 0=absent - 5=normal Details: Neurological exam of the upper extremities shows 5X5 power. Normal sensation across all dermatomes. No hyperreflexia. No midline or paraspinal tenderness of the cervical region, there is right sided thoracic paraspinal tenderness. Coding Level of Care Code Off vis,est,level 4 Diagnoses Obesity (BMI 30-39.9) E66.9 Cervical myelopathy with cervical radiculopathy G95.9; M54.12 Spondylolisthesis, cervical region M43.12 Time Spent (min) 35 Assessment and Plan Assessment and Plan (1) Obesity (BMI 30-39.9): Status: Chronic (2) Cervical myelopathy with cervical radiculopathy: Status: Acute (3) Spondylolisthesis, cervical region: Status: Acute Plan Again reviewed prior x-rays show multilevel disc height loss throughout the cervical spine most severe at C5-6, C6-7. There is a mild retrolisthesis of C5 on C6 and a anterolisthesis of C4 on C5, with subtle instability on dynamic views. There is straightening of the normal cervical lordosis. Reviewed cervical MRI from December 09, 2024 which shows C4-5 broad-based disc protrusion withan anterolisthesis of C4 on C5, C5-6 broad-based right and right lateral recess disc protrusion and compression and posterior displacement of the right side of the spinal cord, there is also a mild lateral recess stenosis and moderate foraminal narrowing on the right. 1. Cervical radiculopathy - The patient is scheduled for cervical spine surgery to address nerve compression at C4-5 and C5-6. - Post-operative care will include wearing a collar for two weeks, followed by physical therapy to regain range of motion. - The patient will have follow-up appointments at two weeks, six weeks, three months, and one year, with x-rays at each visit to monitor healing. 2. Mitral valve prolapse - The patient has a history of mitral valve prolapse, with no recent cardiology follow-up. - The primary care physician has noted a slight murmur, but no significant concerns have been raised. - The patient will be observed overnight post-surgery due to this condition. 3. Sleep apnea - The patient has been cleared for surgery by her proj engineer. - She will be observed overnight post-surgery due to her sleep apnea. - Wear the collar full-time for two weeks post-surgery, then gradually wean off. - Begin physical therapy after two weeks to improve range of motion. - Avoid heavy lifting and excessive neck movements for the first three months. - Attend follow-up appointments at two weeks, six weeks, three months, and one year for x-rays and evaluation. - Maintain a diet rich in calcium and vitamin D to support bone healing. - Stay active post-surgery to prevent complications such as blood clots and pneumonia. Explained imaging findings in detail. The patient has been dealing with neck pain for many years with that worsening over the last several years. The patient has tried injections and physical therapy in the past all of which did not give her any significant relief. This neck pain has made it difficult for her to do what she wishes to do and has been decreasing her quality of life. Discussed options today which includes more physical therapy versus C4-6 ACDF. Explained the ACDF procedure in detail. Discussed this procedure in detail and explained the risks, benefits and alternatives. The risks of surgery include but are not limited to infection, bleeding, injury to nerves and vessels, hematoma formation, dysphagia, dysphonia, recurrent laryngeal nerve injury, Sathish syndrome, DVT, pulmonary embolism, pneumonia, atelectasis, cardiopulmonary event, pseudoarthrosis, hardware failure, adjacent segment degeneration, need for further surgery, nerveroot injury, spinal cord injury. Answered all questions to the patient?s satisfaction. Patient understands and agrees to proceed with surgery. Consent was signed. 03/07/25 1200 <Electronically signed by Marcos Monroy MD> Cosigner Signature (if applicable): CC: GROUNDSKEEPING MAINTENANCE WORKER-Katherine Hernandez; Dr. Marcos Monroy MD~ Signed [facility] Work Phone: 1(735) 136-445209-02-2025 Consult note Author Constantino Chong [facility] Note Date/Time March 07, 2025 11:13am [facility] Medical Records Department [address] [place] [address] Pre-Anesthesia Evaluation 03/07/25 1104 MR#: [id number] Acct: [id number] Name: ROSALIE RANDHAWA Rep #:[id number] : 1970 55 From: Constantino Chong MD PCP: BAY Bustillo Status:REG S DC Y Race: C Location: [place] [address] ASA Classification* ASA Classification ASA Classification: 2 Assessment & Plan Anesthesia* Anesthesia Assessment Anesthesia Assessment: Discussed sedation and/or anesthesia options, risks, benefits, and alternatives with patient/parents/legal guardian/POA. Questions invited. The patient/parents/legal guardian/POA seems to understand and agrees to proceedwith anesthesia plan. Reviewed the physical assessment, medical history, allergy history and patient home medications list prior to surgery/procedure/anesthetic and documented any changes. Performed airway and anesthesia risk assessments. Anesthesia Type Anesthesia Type: General (Consider GlideScope for intubation.) History Source History Obtained from:: Patient and Chart Anesthesia Focused Assessment* Temperature: 97.3 F Pulse Rate: 80 Blood Pressure: 126/78 Respiratory Rate: 16 Pulse Ox: 99 Oxygen Delivery Method: Room Air Airway Assessment Mouth opens: >3 cm Mallampati Score: III Teeth Condition: Intact Neck Range of motion (ROM): Limited ROM (Somewhat Decreased) Labs Anesthesia Preop lab: CBC WBC 6.2 K/mm3 (4.4-11.0) 02/23/25 07:12 02/23/25 RBC 4.58 M/mm3 (4.2-5.4) 02/23/25 07:12 02/23/25 Hgb 14.0 g/dL (12.0-15.0) 02/23/25 07:12 02/23/25 Hct 41.8 % (37-47) 02/23/25 07:12 02/23/25 Plt Count 326 K/mm3 (150-450) 02/23/25 07:12 02/23/25 CHEMISTRY Potassium 4.5 mmol/L (3.3-5.1) 02/23/25 07:12 02/23/25 Sodium 139 mmol/L (133-145) 02/23/25 07:12 02/23/25 Magnesium 2.3 mg/dL (1.5-2.2) H 02/23/25 07:12 02/23/25 BUN 17 mg/dL (4-19) 02/23/25 07:12 02/23/25 Creatinine 0.90 mg/dL (0.70-1.20) 02/23/25 07:12 02/23/25 Glucose 115 mg/dL (70-99) H 02/23/25 07:12 02/23/25 TSH 0.804 uIU/mL (0.358-3.740) 05/17/24 08:37 05/06 08/29 COAG PT 13.8 SECONDS (11.7-14.9) 11/16/23 02:13 Urine Test Negative Negative 05/05/12 08:49 05/05/12 Pre-Assessment Diagnosis/Proposed Procedure Planned Operative Procedure(s): (N/A) Anterior Cervical Fusion C4-5 and C5-6 Anesthesia History Anesthesia History - operating engineer apprentice: Anesthesia History - operating engineer apprentice Hx Hospitalization No 02/17/25 10:20 Any Problems With Anesthesia Yes: SLOW TO AWAKEN 02/17/25 10:20 Cholinesterase deficiency No 02/17/25 10:20 You/Your Family Experience No 02/17/25 10:20 fever (hyperthermia) with Relationship Recent Exposure to Contagious No 03/07/25 10:17 Disease Does patient have nerve No 02/17/25 10:20 stimulator Patient instructed to have device shut off --Does patient have Pacemaker No 03/07/25 10:17 or ICD? When Was Last Pacemaker Check QUESTION #4 FULL TEXT: You/Your Family Experience fever (hyperthermia) with Anesthesia Last Oral Intake Last Oral intake: Last Oral Intake NPO since 09:30 03/07/25 10:17 Meds taken in AM with sips of Yes 03/07/25 10:17 water? Meds patient instructed to take am of surgery Any additional information?: Yes NPO since: 09:30 (Patient took her preop Ensureat 9:30 AM.) Meds taken in AM with sips of water?: Yes Meds patient instructed to take am of surgery: Synthroid PONV PONV - operating engineer apprentice: PONV - operating engineer apprentice Female Yes 02/17/25 10:20 HX of Motion Sickness Yes 02/17/25 10:20 HX of N/V After Surgery No 02/17/25 10:20 Non-Smoker Yes 02/17/25 10:20 Duration of Surgery greater Yes 02/17/25 10:20 than 60 minutes Number of Risk Factors 4 02/17/25 10:20 PONV Score Severe Risk 02/17/25 10:20 Height & Weight Height & Weight: Anesthesia: Height & Weight Height 5 ft 4 in 03/07/25 10:17 Weight: 85.275 kg 03/07/25 10:17 Body Mass Index (BMI) 32.2 03/07/25 10:17 Respiratory Assessment Respiratory Assessment - operating engineer apprentice: Respiratory Tract Infection Hx - operating engineer apprentice Hx Respiratory Tract Infection No 02/17/25 10:20 STOP Sleep Apnea STOP Sleep Apnea - operating engineer apprentice: STOP Sleep Apnea - operating engineer apprentice Hx Hypertension No 02/17/25 10:20 Hx Sleep Apnea Yes 02/17/25 10:20 CPAP Yes 02/17/25 10:20 BIPAP No 02/17/25 10:20 Do you snore loudly (louder than talking or can be heard Do you often feel tired/ fatigued/ sleepy during daytime? Has anyone observed you stop breathing during sleep? STOP Results Positive 02/17/25 10:20 QUESTION #5 FULL TEXT : Do you snore loudly (louder than talking or can be heard through closed doors)? 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 Specify any problems Hx of Preganancy in last 3 N/A 02/17/25 10:20 Months Nurse Filling Out Transfusion NBUCHER 02/17/25 10:20 & Questions: Date: 02/17/25 02/17/25 10:20 Time: 10:21 02/17/25 10:20 Patient unable to answer at this time (ie. confused, unrespo /Reproduction History /Reproductive History - operating engineer apprentice: /Reproductive Hx- operating engineer apprentice Hx Now No 02/17/25 10:20 Gestational Age (in weeks): EDC: Hx Hx Para Hx Section SAB No 02/17/25 10:20 Active Medications Active Medications: Current Medications Generic Name Dose Route Start Last Admin Trade Name Freq PRN Reason Stop Dose Admin Acetaminophen 1,000 mg 03/07/25 12:00 03/07/25 10:32 Acetaminophen 500 Mg Tablet PO 03/07/25 12:01 1,000 mg PREOP ONE Administration Dexamethasone Sodium Phosphate 8 mg 03/07/25 12:00 Dexamethasone 10 Mg/Ml Vial IV 03/07/25 12:01 INTRAOP ONE Dexamethasone Sodium Phosphate 4 mg 03/07/25 12:00 Dexamethasone 4 Mg/Ml Vial IV 03/07/25 12:01 POSTOP ONE Cefazolin Sodium 2 gm/ Sodium 110 mls @ 150 mls/hr 03/07/25 12:00 Chloride IV 03/07/25 12:43 INTRAOP ONE Tranexamic Acid 1,000 mg/ 110 mls @ 440 mls/hr 03/07/25 12:00 Sodium Chloride IV 03/07/25 12:14 INTRAOP ONE Tranexamic Acid 1,000 mg/ 110 mls @ 440 mls/hr 03/07/25 12:00 Sodium Chloride IV 03/07/25 12:14 INTRAOP ONE Magnesium Sulfate 1 gm/ 102 mls @ 408 mls/hr 03/07/25 12:00 03/07/25 10:31 Dextrose IV 03/07/25 12:14 408 mls/hr PREOP ONE Administration Lactated Ringer's 1,000 mls @ 15 mls/hr 03/07/25 10:15 03/07/25 10:32 IV 15 mls/hr .Q48H ELVER Administration Insulin Human Lispro 1 - 6 unit 03/07/25 12:00 Insulin Lispro 100 Unit/Ml Insuln.Pen SC Q4H PRN PRN BG>/= 180, SEE PROTOCOL Protocol PFSH Medical History Wears glasses Depression Low iron Pulmonary embolism Easy bruising Restless legs Injury of back Vertigo History of IBS Gastric reflux Non-smoker Asthma CPAP (continuous positive airway pressure) dependence Shortness of breath on exertion History of echocardiogram History of stress test Hx of colonic polyps Family history of colon cancer Colon cancer screening Elevated liver enzymes Mitral valve disease Obesity (BMI 30-39.9) Family history of pancreatic cancer Bilateral foot pain Skin mole Right hip pain Polyarthropathy Encounter for vitamin deficiency screening Left knee pain Change in skin mole Hypothyroidism Chronic back pain Foot pain Vitamin D deficiency Anxiety Migraine Mitral valve prolapse Hemorrhoids Cervical radiculopathy Pain in thoracic spine Myalgia Fatigue Post-menopausal Home Medications ?Medication ?Instructions ?Recorded ?Last Taken ?Type L.acidophilus-L.plantarum-L.rhamnosus 1 cap PO DAILY 0 01/16/22 Unknown History 1 billion cell capsule,delay rel (Probiotic Pearls Women's) Synthroid 100 mcg tablet 100 mcg PO DAILY #90 tabs 03/07/25 Rx (levothyroxine) naltrexone 8 mg-bupropion 90 mg 2 tab PO BID 3 months #360 tabs 01/25/25 03/06/25 Rx tablet,extended release (Contrave) methocarbamol 500 mg tablet 500 mg PO TID PRN pain/spa sms #60 02/13/25 03/06/25 Rx tabs atogepant 60 mg tablet (Qulipta) 60 mg PO DAILY 03/06/25 History rimegepant 75 mg disintegrating 75 mg PO DAILY PRN fermin randy 02/17/25 02/28/25 History tablet (Nurtec ODT) sertraline 100 mg tablet 100 mg PO QHS 02/17/2503/06 History Allergy/AdvReac Type Severity Reaction Status Date / Time pseudoephedrine Allergy Unknown Other Verified 03/07/25 10:15 sumatriptan (From Imitrex) AdvReac Unknown Swelling Verified 03/07/25 10:15 Family History Grandmother Colon cancer at 51yrs Diabetes Breast cancer Grandfather Heart disease Mother Thyroid disorder Sister Thyroid disorder Father Hyperlipemia Uncle Cancer pancreatic Surgical History Hx of colonoscopy History of colonoscopy History of hysterectomy History of cholecystectomy Hx of tubal ligation Social History household members: spouse current occupational status: employed 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 Physical Exam Resp clear to auscultation bilaterally 03/07/25 1113 <Electronically signed by Constantino recinos MD> Date _ Constantino Chong MD Cosigner Signature: Date CC: ~ Signed [facility] Work Phone: 1(463) 195-501609-02-2025 History and physical note [facility] Medical Records Department [address] [place] [address] History & Physical Exam 03/07/25 1200 MR#: [id number] Acct: [id number] Name: ROSALIE RANDHAWA Rep #:[id number] : 1970 55 From: Marcos Monroy MD PCP: B[facility] Bustillo Status:REG S DC Location: [facility] AC03-1 History and Physical Date of Admission: 03/07/25 MR#: [id number] Acct: [id number] Name: ROSALIE RANDHAWA Rep #: [id number] : 1970 Provider: Dr. Marcos Monroy MD Age/Sex: 55/F Location: [facility] [place] Status: Signed Intake Vital Signs 10/14/2507:05 02/22/2508:04 Height 5 ft 4 in 5 ft 4 in Weight: 182 lb 184 lb 4 oz BMI 31.2 31.6 Intake Visit Reasons: cervical spine Chief Complaint: Cervical spine pre-op Accompanied by: Is patient in pain?: Yes Pain scale (1-10): 10 Allergies pseudoephedrine Allergy (Unknown, Verified 02/21/25 08:05) Othersumatriptan (From Imitrex) Adverse Reaction (Unknown, Verified 02/21/25 08:05) Swelling Medications ?Medication ?Instructions ?Recorded ?Confirmed ?Type L.acidophilus-L.plantarum-L.rhamnosus 1 cap PO DAILY 01/16/22 02/21/25 History 1 billion cell capsule,delay rel (Probiotic Pearls Women's) Synthroid 100 mcg tablet 100 mcg PO DAILY #90 tabs 12/06/2402/21 Rx (levothyroxine) naltrexone 8 mg-bupropion 90 mg 2 tab PO BID 3 months #360 tabs 01/25/25 02/21/25 Rx tablet,extended release (Contrave) methocarbamol 500 mg tablet 500 mg PO TID PRN pain/spasms #60 02/21/25 Rx tabs atogepant 60 mg tablet (Qulipta) 60 mg PO DAILY 02/17/25 02/21/25 History rimegepant 75 mg disintegrating 75 mg PO DAILY PRN migraine 02/17/25 History tablet (Nurtec ODT) sertraline 100 mg tablet 100 mg PO QHS 02/17/25 02/21/25 History PFSH Medical History Wears glasses Depression Low iron Pulmonary embolism Easy bruising Restless legs Injury of back Vertigo History of IBS Gastric reflux Non-smoker Asthma CPAP (continuous positive airway pressure) dependence Shortness of breath on exertion History of echocardiogram History of stress test Hx of colonic polyps Family history of colon cancer Colon cancer screening Elevated liver enzymes Mitral valve disease Obesity (BMI 30-39.9) Family history of pancreatic cancer Bilateral foot pain Skin mole Right hip pain Polyarthropathy Encounter for vitamin deficiency screening Left knee pain Change in skin mole Hypothyroidism Chronic back pain Foot pain Vitamin D deficiency Anxiety Migraine Mitral valve prolapse Hemorrhoids Cervical radiculopathy Pain in thoracic spine Myalgia Fatigue Post-menopausal Surgical History Hx of colonoscopy History of colonoscopy History of hysterectomy History of cholecystectomy Hx of tubal ligation Family History Grandmother Colon cancer at 51yrs Diabetes Breast cancerGrandfather Heart diseaseMother Thyroid disorderSister Thyroid disorderFather HyperlipemiaUncle Cancer pancreatic Social History household members: spouse current occupational status: employed 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 Marcos Monroy MD 02/21/25 0755. Part of today?s visit was documented by Marcia Khan ATC, acting as scribe. ROSALIE GONZALES is a 55 year old F here today for pre-op for anterior cervical disc fusionC4-5 and C5-6 DOS 03/07/2025. Patient states her pain has been horrible the last week or so. She states she has had horrible migraines andpain. She denies any new injuries or accidents that would have caused the pain to worsen. She denies any recent injections. The patient is a 55-year-old female presenting for pre-operative evaluation and management of cervical radiculopathy. The patient reports experiencing constant pain and tightness in her shoulders, with a limited rangeof motion and frequent headaches, which have been persistent over the past week. She also notes a loss of strength in her hands, more pronounced on the left side, despite being right-handed. The patient has a history of mitral valve prolapse, diagnosed at the age of 27, for which she has not been under the care of a business development consultant recently. Her primary care physician has noted a slight murmur, but no significant concerns have been raised. She also has a history of sleep apnea, managed by a proj engineer, and has been cleared for surgeryby her proj engineer. - Musculoskeletal: Reports constant shoulder pain and tightness, limited range of motion. - Neurological: Reports frequent headaches and loss of strength in hands, more on the left side. - Cardiovascular: Denies any new cardiac symptoms, reports history of mitral valve prolapse. - Respiratory: Reports history of sleep apnea, denies any new respiratory symptoms. Attestation: Documentation on this patient encounter was supported using ambient scribe technology/ voice AI technology. The patient consented to recording for the purpose of documenting the encounter. Provider reviewed content of the generatednote prior to signature. 12/13/24: ROSALIE GONZALES is a 54 year old F here today for MRI review of her cervical spine. She states that her tightness is less severe because of the muscle relaxer we prescribed her lasttime. She denies recent injection for the neck. Feels like she is drifting to the side more when walking and does dropitems out of her hand such as a bowl. Not changing over several years. No diabetes, no heart or lung issues, no blood thinners. Sees pulmonology at the hospital for sleep apnea. No O2. HPI from 10/13/24: The pain is in the back of the neck. The pain starts at the janice and then runs all the way down to the the right and left side of the shoulder, the left side feels the worst. Patient states it feels like there is akink in the neck.Gets numbness in her shoulder blades and into herdeltoids and will occasionally get pain to her dorsal forearm and wrist. No balance issues. No dexterity issues but feels like her hands are weaker. This has been going on since she was a teenager. She doesn't remember injuring it. She woke up one morning and she couldn't turn her head. Over the years this has been gradually getting worse, with it worsening over the last 3 weeks. Denies any surgery, it makes it difficult through out the day because she watches her grandson and doesa lot of lifting. The pain is so bad it makes her feel sick. The pain gets worsewhen she turns her head to the left. Patient got a massage on Thursday, and it took a couple days to work. Her massage therapist statedthat her neck and shoulders were really tight. Patient did see Dr. Davis for her tailbone and he stated that he could only inject 2 areas. Patient takes advil to less the intensity, but the pain is still there. No neck injections. Last injection was ayear and half ago, no significant benefit. The patient has seen physical therapy late last year in April/May for her neck and completed 3 weeks oftherapy with 2 sessions per week. She was then given a guided home exercise program. Patient was on blood thinners, but she stopped taking them in April. She had a cosmetic surgery and got a blood clot. Patient had to be on for 6 months. No diabetes. Denies any smoking, or drugs. Patient states that she gets numbness and tingling in the left arm and hands. It runs down the whole left arm. Ortho Exam General General: Yes no acute distress Neurologic: Yes alert and Yes oriented x3 Psychologic: Yes reasonable and appropriate Spine SPINE TESTING CERVICAL THORACIC LUMBAR Musculoskeletal Strength 0=absent - 5=normal Details: Neurological exam of the upper extremities shows 5X5 power. Normal sensation across all dermatomes.No hyperreflexia. No midline or paraspinal tenderness of the cervical region, there is right sided thoracic paraspinal tenderness. Coding Level of Care Code Off vis,est,level 4 Diagnoses Obesity (BMI 30-39.9) E66.9 Cervical myelopathy with cervical radiculopathy G95.9; M54.12 Spondylolisthesis, cervical region M43.12 Time Spent (min) 35 Assessment and Plan Assessment and Plan (1) Obesity (BMI 30-39.9): Status: Chronic (2) Cervical myelopathy with cervical radiculopathy: Status: Acute (3) Spondylolisthesis, cervical region: Status: Acute Plan Again reviewed prior x-rays show multilevel disc height loss throughout the cervical spine most severe at C5-6, C6-7. There is a mild retrolisthesis of C5 on C6 and a anterolisthesis of C4 on C5, with subtle instability on dynamic views. There is straightening of the normal cervical lordosis. Reviewed cervical MRI from December 09, 2024 which shows C4-5 broad-based disc protrusion withan anterolisthesis of C4 on C5, C5-6 broad-based right and right lateral recess disc protrusion and compression and posterior displacement of the right side of the spinal cord, there is also a mild lateral recess stenosis and moderate foraminal narrowing on the right. 1. Cervical radiculopathy - The patient is scheduled for cervical spine surgery to address nerve compression at C4-5 and C5-6. - Post-operative care will include wearing a collar for two weeks, followed by physical therapy to regain range of motion. - The patient will have follow-up appointments at two weeks, six weeks, three months, and one year,with x-rays at each visit to monitor healing. 2. Mitral valve prolapse - The patient has a history of mitral valve prolapse, with no recent cardiology follow-up. - The primary care physician has noted a slight murmur, but no significant concerns have been raised. - The patient will be observed overnight post-surgery due to this condition. 3. Sleep apnea - The patient has been cleared for surgery by her proj engineer. - She will be observed overnight post-surgery due to her sleep apnea. - Wear the collar full-time for two weeks post-surgery, then gradually wean off. - Begin physical therapy after two weeks to improve range of motion. - Avoid heavy lifting and excessive neck movements for the first three months. - Attend follow-up appointments at two weeks, six weeks, three months, and one year for x-rays and evaluation. - Maintain a diet rich in calcium and vitamin D to support bone healing. - Stay active post-surgery to prevent complications such as blood clots and pneumonia. Explained imaging findings in detail. The patient has been dealing with neck pain for many years with that worsening over the last several years. The patient has tried injections and physical therapyin the past all of which did not give her any significant relief. This neck pain has made it difficult for her to do what she wishes to do and has been decreasing her quality of life. Discussed options today which includes more physical therapy versus C4-6 ACDF. Explained the ACDF procedure in detail. Discussed this procedure in detail and explained the risks, benefits and alternatives. The risks ofsurgery include but are not limited to infection, bleeding, injury to nerves and vessels, hematoma formation, dysphagia, dysphonia, recurrent laryngeal nerve injury, Sathish syndrome, DVT, pulmonary em bolism, pneumonia, atelectasis, cardiopulmonary event, pseudoarthrosis, hardware failure, adjacent segment degeneration, need for further surgery, nerveroot injury, spinal cord injury. Answered all questions to the patient?s satisfaction. Patient understands and agrees to proceed with surgery. Consent was signed. 03/07/25 1200 Cosigner Signature (if applicable): CC: DELFINOC Heidy Hernandez; Dr. Marcos Monroy MD~ Signed [facility]09-02-2025 [facility] Medical Records Department [address] [place] [address] History Physical Exam 03/07/25 1200 MR#: [id number] Acct: [id number] Name: ROSALIE RANDHAWA Rep #: [id number] : 1970 55 From: Marcos Monroy MD PCP: BAY Bustillo Status:[facility] Location: [place] [address] History and Physical Date of Admission: 03/07/25 MR#: [id number] Acct: [id number] Name: ROSALIE RANDHAWA Rep #: [id number] : 1970 Provider: Dr. Marcos Monroy MD Age/Sex: 55/F Location: [facility] Status: Signed Intake Vital Signs 10/14/2507:05 02/22/2508:04 Height 5 ft 4 in 5 ft 4 in Weight: 182 lb 184 lb 4 oz BMI 31.2 31.6 Intake Visit Reasons: cervical spine Chief Complaint: Cervical spine pre-op Accompanied by: Is patient in pain?: Yes Pain scale (1-10): 10 Allergies pseudoephedrine Allergy (Unknown, Verified 02/21/25 08:05) Othersumatriptan (From Imitrex) Adverse Reaction (Unknown, Verified 02/21/25 08:05) Swelling Medications ???Medication ???Instructions ???Recorded ???Confirmed ???Type L.acidophilus-L.plantarum-L.rhamnosus 1 cap PO DAILY 01/16/22 02/21/25 History 1 billion cell capsule,delay rel (Probiotic Pearls Women's) Synthroid 100 mcg tablet 100 mcg PO DAILY #90 tabs 12/06/24 02/21/25 Rx (levothyroxine) naltrexone 8 mg-bupropion 90 mg 2 tab PO BID 3 months #360 tabs 01/25/25 02/21/25 Rx tablet,extended release (Contrave) methocarbamol 500 mg tablet 500 mg PO TID PRN pain/spasms #60 02/13/25 5 Rx tabs atogepant 60 mg tablet (Qulipta) 60 mg PO DAILY 02/17/25 02/21/25 History rimegepant 75 mg disintegrating 75 mg PO DAILY PRN migraine 02/17/25 02/21/25 Hist ory tablet (Nurtec ODT) sertraline 100 mg tablet 100 mg PO QHS 02/17/25 02/21/25 History PFSH Medical History Wears glasses Depression Low iron Pulmonary embolism Easy bruising Restless legs Injury of back Vertigo History of IBS Gastric reflux Non-smoker Asthma CPAP (continuous positive airway pressure) dependence Shortness of breath on exertion History of echocardiogram History of stress test Hx of colonic polyps Family history of colon cancer Colon cancer screening Elevated liver enzymes Mitral valve disease Obesity (BMI 30-39.9) Family history of pancreatic cancer Bilateral foot pain Skin mole Right hip pain Polyarthropathy Encounter for vitamin deficiency screening Left knee pain Change in skin mole Hypothyroidism Chronic back pain Foot pain Vitamin D deficiency Anxiety Migraine Mitral valve prolapse Hemorrhoids Cervical radiculopathy Pain in thoracic spine Myalgia Fatigue Post-menopausal Surgical History Hx of colonoscopy History of colonoscopy History of hysterectomy History of cholecystectomy Hx of tubal ligation Family History Grandmother Colon cancer at 51yrs Diabetes Breast cancerGrandfather Heart diseaseMother Thyroid disorderSister Thyroid disorderFather HyperlipemiaUncle Cancer pancreatic Social History household members: spouse current occupational status: employed 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 Marcos Monroy MD 02/21/25 0758. Part of today???s visit was documented by Marcia Khan ATC, acting as scribe. ROSALIE GONZALES is a 55 year old F here today for pre-op for anterior cervical disc fusion C4-5 and C5-6 DOS 03/07/2025. Patient states her pain has been horrible the last week or so. She states she has had horrible migraines and pain. She denies any new injuries or accidents that would have caused the pain to worsen. She denies any recent injections. The patient is a 55-year-old female presenting for pre-operative evaluation and management of cervical radiculopathy. The patient reports experiencing constant pain and tightness in her shoulders, with a limited range of motion and frequent headaches, which have been persistent over the past week. She also notes a loss of strength in her hands, more pronounced on the left side, despite being right-handed. The patient has a history of mitral valve prolapse, diagnosed at the age of 27 (more content not included)...[facility]09-02-2025 Consult note [facility] Medical Records Department [address] [place] [address] Pre-Anesthesia Evaluation 03/07/25 1104 MR#: [id number] Acct: [id number] Name: ROSALIE RANDHAWA Rep #:[id number] : 1970 55 From: Constantino Chong MD PCP: BAY Bustillo Status:REG S DC Y Race: C Location: [place] [address] ASA Classification* ASA Classification ASA Classification: 2 Assessment & Plan Anesthesia* Anesthesia Assessment Anesthesia Assessment: Discussed sedation and/or anesthesia options, risks, benefits, and alternatives with patient/parents/legal guardian/POA. Questions invited. The patient/parents/legal guardian/POA seems to understand and agrees to proceedwith anesthesia plan. Reviewed the physical assessment, medical history, allergy history and patient home medications list prior to surgery/procedure/anesthetic and documented any changes. Performed airway and anesthesia risk assessments. Anesthesia Type Anesthesia Type: General (Consider GlideScope for intubation.) History Source History Obtained from:: Patient and Chart Anesthesia Focused Assessment* Temperature: 97.3 F Pulse Rate: 80 Blood Pressure: 126/78 Respiratory Rate: 16 Pulse Ox: 99 Oxygen Delivery Method: Room Air Airway Assessment Mouth opens: >3 cm Mallampati Score: III Teeth Condition: Intact Neck Range of motion (ROM): Limited ROM (Somewhat Decreased) Labs Anesthesia Preop lab: CBC WBC 6.2 K/mm3 (4.4-11.0) 02/23/25 07:12 02/23/25 RBC 4.58 M/mm3 (4.2-5.4) 02/23/25 07:12 02/23/25 Hgb 14.0 g/dL (12.0-15.0) 02/23/25 07:12 02/23/25 Hct 41.8 % (37-47) 02/23/25 07:12 02/23/25 Plt Count 326 K/mm3 (150-450) 02/23/25 07:12 02/23/25 CHEMISTRY Potassium 4.5 mmol/L (3.3-5.1) 02/23/25 07:12 02/23/25 Sodium 139 mmol/L (133-145) 02/23/25 07:12 02/23/25 Magnesium 2.3 mg/dL (1.5-2.2) H 02/23/25 07:12 02/23/25 BUN 17 mg/dL (4-19) 02/23/25 07:12 02/23/25 Creatinine 0.90 mg/dL (0.70-1.20) 02/23/25 07:12 02/23/25 Glucose 115 mg/dL (70-99) H 02/23/25 07:12 02/23/25 TSH 0.804 uIU/mL (0.358-3.740) 05/17/24 08:37 05/06 08/29 COAG PT 13.8 SECONDS (11.7-14.9) 11/16/23 02:13 Urine Test Negative Negative 05/05/12 08:49 05/05/12 Pre-Assessment Diagnosis/Proposed Procedure Planned Operative Procedure(s): (N/A) Anterior Cervical Fusion C4-5 and C5-6 Anesthesia History Anesthesia History - operating engineer apprentice: Anesthesia History - operating engineer apprentice Hx Hospitalization No 02/17/25 10:20 Any Problems With Anesthesia Yes: SLOW TO AWAKEN 02/17/25 10:20 Cholinesterase deficiency No 02/17/25 10:20 You/Your Family Experience No 02/17/25 10:20 fever (hyperthermia) with Relationship Recent Exposure to Contagious No 03/07/25 10:17 Disease Does patient have nerve No 02/17/25 10:20 stimulator Patient instructed to have device shut off --Does patient have Pacemaker No 03/07/25 10:17 or ICD? When Was Last Pacemaker Check QUESTION #4 FULL TEXT: You/Your Family Experience fever (hyperthermia) with Anesthesia Last Oral Intake Last Oral intake: Last Oral Intake NPO since 09:30 03/07/25 10:17 Meds taken in AM with sips of Yes 03/07/25 10:17 water? Meds patient instructed to take am of surgery Any additional information?: Yes NPO since: : (Patient took her preop Ensureat 9:30 AM.) Meds taken in AM with sips of water?: Yes Meds patient instructed to take am of surgery: Synthroid PONV PONV - operating engineer apprentice: PONV - operating engineer apprentice Female Yes 02/17/25 10:20 HX of Motion Sickness Yes 02/17/25 10:20 HX of N/V After Surgery No 02/17/25 10:20 Non-Smoker Yes 02/17/25 10:20 Duration of Surgery greater Yes 02/17/25 10:20 than 60 minutes Number of Risk Factors 4 02/17/25 10:20 PONV Score Severe Risk 02/17/25 10:20 Height & Weight Height & Weight: Anesthesia: Height & Weight Height 5 ft 4 in 03/07/25 10:17 Weight: 85.275 kg 03/07/25 10:17 Body Mass Index (BMI) 32.2 03/07/25 10:17 Respiratory Assessment Respiratory Assessment - operating engineer apprentice: Respiratory Tract Infection Hx - operating engineer apprentice Hx Respiratory Tract Infection No 02/17/25 10:20 STOP Sleep Apnea STOP Sleep Apnea - operating engineer apprentice: STOP Sleep Apnea - operating engineer apprentice Hx Hypertension No 02/17/25 10:20 Hx Sleep Apnea Yes 02/17/25 10:20 CPAP Yes 02/17/25 10:20 BIPAP No 02/17/25 10:20 Do you snore loudly (louder than talking or can be heard Do you often feel tired/ fatigued/ sleepy during daytime? Has anyone observed you stop breathing during sleep? STOP Results Positive 02/17/25 10:20 QUESTION #5 FULL TEXT : Do you snore loudly (louder than talking or can be heard through closeddoors)? 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 Specify any problems Hx of Preganancy in last 3 N/A 02/17/25 10:20 Months Nurse Filling Out Transfusion NBUCHER 02/17/25 10:20 & Questions: Date: 02/17/25 02/17/25 10:20 Time: 10:21 02/17/25 10:20 Patient unable to answer at this time (ie. confused, unrespo /Reproduction History /Reproductive History - operating engineer apprentice: /Reproductive Hx- operating engineer apprentice Hx Now No 02/17/25 10:20 Gestational Age (in weeks): EDC: Hx Hx Para Hx Section SAB No 02/17/25 10:20 Active Medications Active Medications: Current Medications Generic Name Dose Route Start Last Admin Trade Name Freq PRN Reason Stop Dose Admin Acetaminophen 1,000 mg 03/07/25 12:00 03/07/25 10:32 Acetaminophen 500 Mg Tablet PO 03/07/25 12:01 1,000 mg PREOP ONE Administration Dexamethasone Sodium Phosphate 8 mg 03/07/25 12:00 Dexamethasone 10 Mg/Ml Vial IV 03/07/25 12:01 INTRAOP ONE Dexamethasone Sodium Phosphate 4 mg 03/07/25 12:00 Dexamethasone 4 Mg/Ml Vial IV 03/07/25 12:01 POSTOP ONE Cefazolin Sodium 2 gm/ Sodium 110 mls @ 150 mls/hr 03/07/25 12:00 Chloride IV 03/07/25 12:43 INTRAOP ONE Tranexamic Acid 1,000 mg/ 110 mls @ 440 mls/hr 03/07/25 12:00 Sodium Chloride IV 03/07/25 12:14 INTRAOP ONE Tranexamic Acid 1,000 mg/ 110 mls @ 440 mls/hr 03/07/25 12:00 Sodium Chloride IV 03/07/25 12:14 INTRAOP ONE Magnesium Sulfate 1 gm/ 102 mls @ 408 mls/hr 03/07/25 12:00 03/07/25 10:31 Dextrose IV 03/07/25 12:14 408 mls/hr PREOP ONE Administration Lactated Ringer's 1,000 mls @ 15 mls/hr 03/07/25 10:15 03/07/25 10:32 IV 15 mls/hr .Q48H ELVER Administration Insulin Human Lispro 1 - 6 unit 03/07/25 12:00 Insulin Lispro 100 Unit/Ml Insuln.Pen SC Q4H PRN PRN BG>/= 180, SEE PROTOCOL Protocol PFSH Medical History Wears glasses Depression Low iron Pulmonary embolism Easy bruising Restless legs Injury of back Vertigo History of IBS Gastric reflux Non-smoker Asthma CPAP (continuous positive airway pressure) dependence Shortness of breath on exertion History of echocardiogram History of stress test Hx of colonic polyps Family history of colon cancer Colon cancer screening Elevated liver enzymes Mitral valve disease Obesity (BMI 30-39.9) Family history of pancreatic cancer Bilateral foot pain Skin mole Right hip pain Polyarthropathy Encounter for vitamin deficiency screening Left knee pain Change in skin mole Hypothyroidism Chronic back pain Foot pain Vitamin D deficiency Anxiety Migraine Mitral valve prolapse Hemorrhoids Cervical radiculopathy Pain in thoracic spine Myalgia Fatigue Post-menopausal Home Medications ?Medication ?Instructions ?Recorded ?Last Taken ?Type L.acidophilus-L.plantarum-L.rhamnosus 1 cap PO DAILY 0 01/16/22 Unknown History 1 billion cell capsule,delay rel (Probiotic Pearls Women's) Synthroid 100 mcg tablet 100 mcg PO DAILY #90 tabs 03/07/25 Rx (levothyroxine) naltrexone 8 mg-bupropion 90 mg 2 tab PO BID 3 months #360 tabs 01/25/25 03/06/25 Rx tablet,extended release (Contrave) methocarbamol 500 mg tablet 500 mg PO TID PRN pain/spa sms #60 02/13/25 03/06/25 Rx tabs atogepant 60 mg tablet (Qulipta) 60 mg PO DAILY 03/06/25 History rimegepant 75 mg disintegrating 75 mg PO DAILY PRN fermin randy 02/17/25 02/28/25 History tablet (Nurtec ODT) sertraline 100 mg tablet 100 mg PO QHS 02/17/2503/06 History Allergy/AdvReac Type Severity Reaction Status Date / Time pseudoephedrine Allergy Unknown Other Verified 03/07/25 10:15 sumatriptan (From Imitrex) AdvReac Unknown Swelling Verified 03/07/25 10:15 Family History Grandmother Colon cancer at 51yrs Diabetes Breast cancer Grandfather Heart disease Mother Thyroid disorder Sister Thyroid disorder Father Hyperlipemia Uncle Cancer pancreatic Surgical History Hx of colonoscopy History of colonoscopy History of hysterectomy History of cholecystectomy Hx of tubal ligation Social History household members: spouse current occupational status: employed 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 Physical Exam Resp clear to auscultation bilaterally 03/07/25 1113 la > Date _ Constantino Chong MD Cosigner Signature: Date CC: ~ Signed [facility]08-19-2025 Evaluation note* Diagnosis Onset Date Resolution Status Admit Date Cervical myelopathy with cervical radiculopathy acute February 212024 7:48am Spondylolisthesis, cervical region acute February 21 7:48am Obesity (BMI 30-39.9) chronic Feb 7:48am Cervical myelopathy with cervical radiculopathy acute March 07, 2025 2:53pm Status post cervical spinal fusion acute March 07 2:53pm Hypothyroidism chronic March 07, 2025 2:53pm Status post cervical spinal fusion acute March 23, 2025 9:59am Status post cervical spinal fusion acute April 18 9:45am [employer] Work Phone: 1(966) 808-169206-10-2025 Evaluation note* Diagnosis Onset Date Resolution Status Admit Date Cervical myelopathy with cervical radiculopathy acute December 3:02pm Spondylolisthesis, cervical region acute December 13, 2024 3:02pm Cervical myelopathy with cervical radiculopathy acute February 212024 7:48am Spondylolisthesis, cervical region acute February 21 7:48am Obesity (BMI 30-39.9) chronic Feb 7:48am [employer] Work Phone: 1(785) 393-853506-10-2025 Evaluation note* Diagnosis Onset Date Resolution Status Admit Date Cervical myelopathy with cervical radiculopathy acute December 3:02pm Spondylolisthesis, cervical region acute December 13, 2024 3:02pm Cervical myelopathy with cervical radiculopathy acute February 212024 7:48am Spondylolisthesis, cervical region acute February 21 7:48am Obesity (BMI 30-39.9) chronic Feb 7:48am Hypothyroidism chronic March 07, 2025 2:53pm [facility] Work Phone: 1([phone]) 712-385006-10-2025 Evaluation note* Diagnosis Onset Date Resolution Status Admit Date Cervical myelopathy with cervical radiculopathy acute December 3:02pm Spondylolisthesis, cervical region acute December 13, 2024 3:02pm Cervical myelopathy with cervical radiculopathy acute February 212024 7:48am Spondylolisthesis, cervical region acute February 21 7:48am Obesity (BMI 30-39.9) chronic Feb 7:48am Cervical myelopathy with cervical radiculopathy acute March 07, 2025 2:53pm Status post cervical spinal fusion acute March 07 025 2:53pm Hypothyroidism chronic March 07, 2025 2:53pm [facility] [employer] Work Phone: 1(353) 572-553706-10-[address] [facility] [address] [place] [address] [place] [address] OFFICE VISIT Date of Service: 12/13/24 MR#: [id number] Acct: [id number] Name: ROSALIE RANDHAWA Rep #: [id number] : 1970 Provider: JESUSITA Palacios Age/Sex: 54/F Location: [facility] Status: Signed Intake Vital Signs 10/13/24 08:05 Height 5 ft 4 in Weight: 182 lb BMI 31.2 Intake Visit Reasons: CERVICAL SPINE Chief Complaint: Cervical spine pain Allergies pseudoephedrine Allergy (Unknown, Verified 12/13/24 15:09) Other sumatriptan (From Imitrex) Adverse Reaction (Unknown, Verified 12/13/24 15:09) Swelling Medications ?Medication ?Instructions ?Recorded ?Confirmed ?Type L.acidophilus-L.plantarum-L.rhamnosus 1 cap PO DAILY 0 01/16/22 12/13/24 History 1 billion cell capsule,delay rel (Probiotic Pearls Women's) apixaban 5 mg tablet (Eliquis) 5 mg PO BID 3 months #1 80 tabs 12/08/23 12/13/24 Rx ubrogepant 100 mg tablet (Ubrelvy) 100 mg PO ONCE #12 tabs 01/13/24 12/13/24 Rx sertraline 100 mg tablet 100 mg PO DAILY #90 tabs 08/3012/13/24 Rx propranolol 60 mg capsule,24 60 mg PO QHS #90 caps 12/13/24 Rx hr,extended release naltrexone 8 mg-bupropion 90 mg 2 tab PO BID 3 months #360 tabs 10/31/24 12/13/24 Rx tablet,extended release (Contrave) Synthroid 100 mcg tablet 100 mcg PO DAILY #90 tabs 12/13/24 Rx (levothyroxine) methocarbamol 500 mg tablet 500 mg PO TID PRN pain/spa sms #60 12/09/24 12/13/24 Rx tabs PFSH Medical History Wears glasses Depression Low iron Pulmonary embolism Easy bruising Restless legs Injury of back Vertigo History of IBS Gastric reflux Non-smoker Asthma CPAP (continuous positive airway pressure) dependence Shortness of breath on exertion History of echocardiogram History of stress test Hx of colonic polyps Family history of colon cancer Colon cancer screening Elevated liver enzymes Mitral valve disease Obesity (BMI 30-39.9) Family history of pancreatic cancer Bilateral foot pain Skin mole Right hip pain Polyarthropathy Encounter for vitamin deficiency screening Left knee pain Change in skin mole Hypothyroidism Chronic back pain Foot pain Vitamin D deficiency Anxiety Migraine Mitral valve prolapse Hemorrhoids Cervical radiculopathy Pain in thoracic spine Myalgia Fatigue Post-menopausal Surgical History Hx of colonoscopy History of colonoscopy History of hysterectomy History of cholecystectomy Hx of tubal ligation Family History Grandmother Colon cancer at 51yrs Diabetes Breast cancer Grandfather Heart disease Mother Thyroid disorder Sister Thyroid disorder Father Hyperlipemia Uncle Cancer pancreatic Social History household members: spouse current occupational status: employed 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[employer] Smoking Status: Never smoker alcohol intake: current alcohol intake frequency: holidays/special occasions only substance use type: does not use what type of physical activity do you participate in: none HPI CERVICAL SPINE Details: This documentation accurately reflects the service provided and the decisions made by , JESUSITA Palacios 12/13/24 2444. Part of today?s visit was documentedby Tari MIRANDA, acting as scribe. ROSALIE GONZALES is a 54 year old F here today for MRI review of her cervical spine. She states that her tightness is less severe because of the muscle relaxer we prescribed her last time. She denies recent injection for the neck. Feels like she is drifting to the side more when walking anddoes drop items out of her hand such as a bowl. Not changing over several years. No diabetes, no heart or lung issues, no blood thinners. Sees pulmonology at the hospital for sleep apnea. No O2. HPI from 10/13/24: The pain is in the back of the neck. The pain starts at the janice and then runs all the way down to the the right and left side of the shoulder, the left side feels the worst. Patient states it feels like there is akink in the neck.Gets numbness in her shoulder blades and into herdeltoids and will occasionally get pain to her dorsal forearm and wrist. No balance issues. No dexterity issues but feels like her hands are weaker. This has been going on since she was a teenager. She doesn't remember injuring it. She woke up one morning and she couldn't turn her head. Over the years this has been gradually getting worse, with it worsening over the last 3 weeks. Denies any surgery, it makes it difficult through out the day because she watches her grandson and doesa lot of lifting. The pain is so bad it makes her feel sick. The pain gets worsewhen she turns her head to the left. Patient got a massage on Thursday, and it took a couple days to work. Her massage therapist statedthat her neck and shoulders were really tight. Patient did see Dr. Davis for her tailbone and he stated that he could only inject 2 areas. Patient takes advil to less the intensity, but the pain is still there. No neck injections. Last injection was ayear and half ago, no significant benefit. The patient has seen physical therapy late last year in April/May for her neck and completed 3 weeks oftherapy with 2 sessions per week. She was then given a guided home exercise program. Patient was on blood thinners, but she stopped taking them in April. She had a cosmetic surgery and got a blood clot. Patient had to be on for 6 months. No diabetes. Denies any smoking, or drugs. Patient states that she gets numbness and tingling in the left arm and hands. It runs down the whole left arm. Ortho Exam General General: Yes no acute distress Neurologic: Yes alert and Yes oriented x3 Spine SPINE TESTING CERVICAL THORACIC LUMBAR Musculoskeletal Strength 0=absent - 5=normal Details: Neurological exam of the upper extremities shows 5X5 power. Normal sensation across all dermatomes.No hyperreflexia. No midline or paraspinal tenderness of the cervical region, there is right sided thoracic paraspinal tenderness. Coding Level of Care Code Off vis,est,level 4 Diagnoses Cervical myelopathy with cervical radiculopathy G95.9; M54.12 Spondylolisthesis, cervical region M43.12 Assessment and Plan Assessment and Plan (1) Cervical myelopathy with cervical radiculopathy: Status: Acute (2) Spondylolisthesis, cervical region: Status: Acute Plan Again reviewed prior x-rays show multilevel disc height loss throughout the cervical spine most severe at C5-6, C6-7. There is a mild retrolisthesis of C5 on C6 and a anterolisthesis of C4 on C5, with subtle instability on dynamic views. There is straightening of the normal cervical lordosis. Reviewed cervical MRI from December 09, 2024 which shows C4-5 broad-based disc protrusion withan anterolisthesis of C4 on C5, C5-6 broad-based right and right lateral recess disc protrusion and compression and posterior displacement of the right side of the spinal cord, there is also a mild lateral recess stenosis and moderate foraminal narrowing on the right. Explained imaging findings in detail. MRI was reviewed with Dr. Monroy. The patient has been dealingwith neck pain for many years with that worsening over the last several years. The patient has tried injections and physical therapy in the past all of which did not give her any significant relief. This neck pain has made it difficult for her to do what she wishes to do and has been decreasing herquality of life. Discussed options today which includes more physical therapy versus C4-6 ACDF. Explained the ACDF procedure in detail. Andexplained risks and benefits. At this time the patient feelslike she has exhausted all nonsurgical treatment and she has had continued pain and wishes toproceed with surgery at this time. The patient does feel like over the last several years she has been drifting more to 1 side while walking and also has been experiencing some slowly worsening dexterity issues over several years. Explained the progressive nature of cervical myelopathy. We will get mayito crenshaw family doctor and pulmonary. She will follow-up with Dr. Monroy for preop appointment. Patient is in agreement. 12/13/24 1549 PA> Date _ Elba MC Cosigner Signature: Date (if applicable) CC: Dr. Oleksandr Holbrook MD ~ [facility] [id number] Progress note Author Elba Zapata [facility] Note Date/Time December 13, 2024 3:49 pm [facility] [address] [place] [address] [place] [address] OFFICE VISIT Date of Service: 12/13/24 MR#: [id number] Acct: [id number] Name: ROSALIE RANDHAWA Rep #: [id number] : 1970 Provider: JESUSITA Palacios Age/Sex: 54/F Location: [facility] Status: Signed Intake Vital Signs 10/13/24 08:05 Height 5 ft 4 in Weight: 182 lb BMI 31.2 Intake Visit Reasons: CERVICAL SPINE Chief Complaint: Cervical spine pain Allergies pseudoephedrine Allergy (Unknown, Verified 12/13/24 15:09) Other sumatriptan (From Imitrex) Adverse Reaction (Unknown, Verified 12/13/24 15:09) Swelling Medications ?Medication ?Instructions ?Recorded ?Confirmed ?Type L.acidophilus-L.plantarum-L.rhamnosus 1 cap PO DAILY 0 01/16/22 12/13/24 History 1 billion cell capsule,delay rel (Probiotic Pearls Women's) apixaban 5 mg tablet (Eliquis) 5 mg PO BID 3 months #1 80 tabs 12/08/23 12/13/24 Rx ubrogepant 100 mg tablet (Ubrelvy) 100 mg PO ONCE #12 tabs 01/13/24 12/13/24 Rx sertraline 100 mg tablet 100 mg PO DAILY #90 tabs 08/3012/13/24 Rx propranolol 60 mg capsule,24 60 mg PO QHS #90 caps 12/13/24 Rx hr,extended release naltrexone 8 mg-bupropion 90 mg 2 tab PO BID 3 months #360 tabs 10/31/24 12/13/24 Rx tablet,extended release (Contrave) Synthroid 100 mcg tablet 100 mcg PO DAILY #90 tabs 12/13/24 Rx (levothyroxine) methocarbamol 500 mg tablet 500 mg PO TID PRN pain/spa sms #60 12/09/24 12/13/24 Rx tabs PFSH Medical History Wears glasses Depression Low iron Pulmonary embolism Easy bruising Restless legs Injury of back Vertigo History of IBS Gastric reflux Non-smoker Asthma CPAP (continuous positive airway pressure) dependence Shortness of breath on exertion History of echocardiogram History of stress test Hx of colonic polyps Family history of colon cancer Colon cancer screening Elevated liver enzymes Mitral valve disease Obesity (BMI 30-39.9) Family history of pancreatic cancer Bilateral foot pain Skin mole Right hip pain Polyarthropathy Encounter for vitamin deficiency screening Left knee pain Change in skin mole Hypothyroidism Chronic back pain Foot pain Vitamin D deficiency Anxiety Migraine Mitral valve prolapse Hemorrhoids Cervical radiculopathy Pain in thoracic spine Myalgia Fatigue Post-menopausal Surgical History Hx of colonoscopy History of colonoscopy History of hysterectomy History of cholecystectomy Hx of tubal ligation Family History Grandmother Colon cancer at 51yrs Diabetes Breast cancer Grandfather Heart disease Mother Thyroid disorder Sister Thyroid disorder Father Hyperlipemia Uncle Cancer pancreatic Social History household members: spouse current occupational status: employed 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[employer] Smoking Status: Never smoker alcohol intake: current alcohol intake frequency: holidays/special occasions only substance use type: does not use what type of physical activity do you participate in: none HPI CERVICAL SPINE Details: This documentation accurately reflects the service provided and the decisions made by me, JESUSITA Palacios 12/13/24 1117. Part of today?s visit was documentedby Tari IMRANDA, acting as scribe. ROSALIE GONZALES is a 54 year old F here today for MRI review of her cervical spine. She states that her tightness is less severe because of the muscle relaxer we prescribed her last time. She denies recent injection for the neck. Feels like she is drifting to the side more when walking and does drop items out of her hand such as a bowl. Not changing over several years. No diabetes, no heart or lung issues, no blood thinners. Sees pulmonology at the hospital for sleep apnea. No O2. HPI from 10/13/24: The pain is in the back of the neck. The pain starts at the janice and then runs all the way down to the the right and left side of the shoulder, the left side feels the worst. Patient states it feels like there is akink in the neck.Gets numbness in her shoulder blades and into her deltoids and will occasionally get pain to her dorsal forearm and wrist. No balance issues. No dexterity issues but feels like her hands are weaker. This has been going on since she was a teenager. She doesn't remember injuring it. She woke up one morning and she couldn't turn her head. Over the years this has been gradually getting worse, with it worsening over the last 3 weeks. Denies any surgery, it makes it difficult through out the day because she watches her grandson and doesa lot of lifting. The pain is so bad it makes her feel sick. The pain gets worsewhen she turns her head to the left. Patient got a massage on Thursday, and it took a couple days to work. Her massage therapist stated that her neck and shoulders were really tight. Patient did see Dr. Davis for her tailbone and he stated that he could only inject 2 areas. Patient takes advil to less the intensity, but the pain is still there. No neck injections. Last injection was ayear and half ago, no significant benefit. The patient has seen physical therapy late last year in April/May for her neck and completed 3 weeks oftherapy with 2 sessions per week. She was then given a guided home exercise program. Patient was on blood thinners, but she stopped taking them in April. She had a cosmetic surgery and got a blood clot. Patient had to be on for 6 months. No diabetes. Denies any smoking, or drugs. Patient states that she gets numbness and tingling in the left arm and hands. It runs down the whole left arm. Ortho Exam General General: Yes no acute distress Neurologic: Yes alert and Yes oriented x3 Spine SPINE TESTING CERVICAL THORACIC LUMBAR Musculoskeletal Strength 0=absent - 5=normal Details: Neurological exam of the upper extremities shows 5X5 power. Normal sensation across all dermatomes. No hyperreflexia. No midline or paraspinal tenderness of the cervical region, there is right sided thoracic paraspinal tenderness. Coding Level of Care Code Off vis,est,level 4 Diagnoses Cervical myelopathy with cervical radiculopathy G95.9; M54.12 Spondylolisthesis, cervical region M43.12 Assessment and Plan Assessment and Plan (1) Cervical myelopathy with cervical radiculopathy: Status: Acute (2) Spondylolisthesis, cervical region: Status: Acute Plan Again reviewed prior x-rays show multilevel disc height loss throughout the cervical spine most severe at C5-6, C6-7. There is a mild retrolisthesis of C5 on C6 and a anterolisthesis of C4 on C5, with subtle instability on dynamic views. There is straightening of the normal cervical lordosis. Reviewed cervical MRI from December 09, 2024 which shows C4-5 broad-based disc protrusion withan anterolisthesis of C4 on C5, C5-6 broad-based right and right lateral recess disc protrusion and compression and posterior displacement of the right side of the spinal cord, there is also a mild lateral recess stenosis and moderate foraminal narrowing on the right. Explained imaging findings in detail. MRI was reviewed with Dr. Monroy. The patient has been dealing with neck pain for many years with that worsening over the last several years. The patient has tried injections and physical therapy in the past all of which did not give her any significant relief. This neck pain has made it difficult for her to do what she wishes to do and has been decreasing her quality of life. Discussed options today which includes more physical therapy versus C4-6 ACDF. Explained the ACDF procedure in detail. Andexplained risks and benefits. At this time the patient feels like she has exhausted all nonsurgical treatment and she has had continued pain and wishes toproceed with surgery at this time. The patient does feel like over the last several years she has been drifting more to 1 side while walking and also has been experiencing some slowly worsening dexterity issues over several years. Explained the progressive nature of cervical myelopathy. We will get clearancesfrom family doctor and pulmonary. She will follow-up with Dr. Monroy for preop appointment. Patient is in agreement. 12/13/24 1549 <Electronically signed by Elba MC> Date _ Elba MC Cosigner Signature: Date (if applicable) CC: Dr. Oleksandr Holbrook MD ~ [facility] Work Phone: 1(239) 208-992604-10-2025 Evaluation note* Diagnosis Onset Date Resolution Status Admit Date Cervical radiculopathy acute Ap 2024 8:04am Spondylolisthesis, cervical region acute October 13, 2024 8:04am Cervical myelopathy with cervical radiculopathy acute December 3:02pm Spondylolisthesis, cervical region acute December 13, 2024 3:02pm [facility] Work Phone: 1(953) 385-125411-20-2024 [facility] Medical Records Department [address] [facility] [place] [address] History Physical Exam 05/25/24 0820 MR#: [id number] Acct: [id number] Name: ROSALIE RANDHAWA Rep #: [id number] : 1970 54 From: Adan Friend DO PCP: Dr. Oleksandr Holbrook MD Status:[facility] Location: [address] HPI - General General Date of Admission: 05/25/24 Date of Service: 05/25/24 Chief Complaint: Screening colonoscopy HPI Narrative ROSALIE GONZALES, is a 54 F who presents today for screening colonoscopy. She had a colonoscopy approximately 3 years ago and she had adenomatous polyps at that time. She was started on come back in 3 years for surveillance colonoscopy. She has a history of pulmonary emboli hypothyroidism, hypertension. She takes apixaban 5 mg p.o. twice daily. [facility] Medical History (Updated 05/23/24 @ 12:59 by Aida Fonseca) Wears glasses Depression Low iron Pulmonary embolism Easy bruising Restless legs Injury of back Vertigo History of IBS Gastric reflux Non-smoker Asthma CPAP (continuous positive airway pressure) dependence Shortness of breath on exertion History of echocardiogram History of stress test Hx of colonic polyps Family history of colon cancer Colon cancer screening Elevated liver enzymes Mitral valve disease Obesity (BMI 30-39.9) Family history of pancreatic cancer Bilateral foot pain Skin mole Right hip pain Polyarthropathy Encounter for vitamin deficiency screening Left knee pain Change in skin mole Hypothyroidism Chronic back pain Foot pain Vitamin D deficiency Anxiety Migraine Mitral valve prolapse Hemorrhoids Cervical radiculopathy Pain in thoracic spine Myalgia Fatigue Post-menopausal Home Medications ???Medication ???Instructions ???Recorded ???Last Taken ???Type L.acidophilus-L.plantarum-L.rhamnosus 1 cap PO DAILY 01/16/22 Unknown History 1 billion cell capsule,delay rel (Probiotic Pearls Women's) apixaban 5 mg tablet (Eliquis) 5 mg PO BID 3 months #180 tabs 12/08/23 05/18/24 Rx ubrogepant 100 mg tablet (Ubrelvy) 100 mg PO ONCE #12 tabs 01/13/24 Unknown Rx sertraline 100 mg tablet 100 mg PO DAILY #90 tabs 02/01/24 Unknown Rx Synthroid 100 mcg tablet 100 mcg PO DAILY #90 tabs 03/09/24 Unknown Rx (levothyroxine) propranolol 60 mg capsule,24 60 mg PO QHS #30 caps 05/18/24 Unknown Rx hr,extended release naltrexone 8 mg-bupropion 90 mg 2 tab PO BID 05/23/24 05/22/24 History tablet,extended release (Contrave) Allergy/AdvReac Type Severity Reaction Status Date / Time pseudoephedrine Allergy Unknown Other Verified 05/23/24 12:48 sumatriptan (From Imitrex) AdvReac Unknown Swelling Verified 05/23/24 12:48 Family History Grandmother Colon cancer at 51yrs Diabetes Breast cancer Grandfather Heart disease Mother Thyroid disorder Sister Thyroid disorder Father Hyperlipemia Uncle Cancer pancreatic Surgical History (Updated 05/23/24 @ 12:59 by Aida Fonseca) Hx of colonoscopy History of colonoscopy History of hysterectomy History of cholecystectomy Hx of tubal ligation Social History household members: spouse current occupational status: employed 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[employer] Smoking Status: Never smoker alcohol intake: current alcohol intake frequency: holidays/special occasions only substance use type: does not use what type of physical activity do you participate in: none ROS Review of Systems ROS Unobtainable: other Constitutional Constitutional: Denies fatigue, fever(s), poor appetite, weight gain or weight loss ENT HEENT: Denies mouth lesions Cardiovascular Cardiovascular: Denies abdominal bloating, abdominal edema or abdominal pain Respiratory/Chest Respiratory/Chest: Denies change in mental status, change in phlegm color, chest congestion or chest tightness Gastrointestinal Gastrointestinal: Denies belching, bloating, change in bowel habits, change in stool character, chewing difficulty, coffee ground emesis, constipation, cramping, diarrhea, dyspepsia, dysphagia, early satiety, excessive flatus, fecal incontinence, heartburn, hematemesis, hematochezia, hemorrhoids, loose stools, melena, nausea, odynophagia, rectal bleeding, tenesmus, vomiting or weight changes Genitourinary Genitourinary: Denies abdominal discomfort, burning urination or itching Musculoskeletal Musculoskeletal: Reports as per HPI; Denies muscle weakness or myalgias Integumentary Integumentary: Denies jaundice Neurologic Neurologic: Denies lack of coordination or weakness Psychiatric Psychiatric: Denies confusion, depression, memory loss, mood swings, paranoia or suicidal ideation Endocrine (more content not included)...[facility] N[facility]* Chief Complaint PAIN IN HIPS AND NEC K/SHOULDER SELF REFERRAL Pap supplies Weightloss/Med review Reason for Visit Obesity (BMI 30.0-34 .9) CALI (obstructive sleep apnea) Family history of pancreatic cancer Anxiety and depression Hypothyroidism Mitral valve disease Obesity (BMI 30-39.9) [facility] Work Phone: Consult note Author Isabel Davis [facility] Note Date/Time March 08, 2025 2:11pm [facility] Medical Records Department [address] [place] [address] Counseling Note - Pharmacy 03/08/25 1409 MR#: [id number] Acct: [id number] Name: ROSALIE RANDHAWA Rep #:[id number] : 1970 55 From: Isabel Davis PCP: BAY Bustillo Status:ADM I NO Y Location: [facility] [place] NB681-6 Pharmacy MS Med Rec Counseling Pharmacy Service has performed discharge medication reconciliation and counseling for this patient. 1. ACETAMINOPHEN 500MG PO Q6 2. MELOXICAM 15MG PO DAILY 3. NORCO 5/325MG PO Q6H PRN PAIN 4. SENNA/DOCUSATE 2T PO BID PRN CONSTIPATION 5. METHOCARBAMOL CHANGED TO 750MG PO TID PRN MUSCLE PAIN/SPASMS 6. HOLD CONTRAVE WHILE TAKING NORCO The patient's discharge medication list was reviewed for discrepancies and discrepancies were resolved. The patient was counseled on the following discharge medications and changes in medications for homegoing were reviewed. The Reason for Use, instructions for use, and potential side effects were reviewed for all new medications. The patient's questions regarding all of their medications were answered. The patient was able to verbally demonstrate an understanding of their dischargemedications. Medications at Discharge Home Medications L.acidophilus-L.plantarum-L.rhamnosus 1 billion cell capsule,delay rel (Probiotic Pearls Women's) 1 cap PO DAILY 01/16/22 Synthroid 100 mcg tablet (levothyroxine) 100 mcg PO DAILY #90 tabs 12/06/24 naltrexone 8 mg-bupropion 90 mg tablet,extended release (Contrave) 2 tab PO BID 3 months #360 tabs 01/25/25 Held on 03/08/25. Instructions: Resume on 03/15/25. hold until done taking hydrocodone-acetaminophen atogepant 60 mg tablet (Qulipta) 60 mg PO DAILY 02/17/25 rimegepant 75 mg disintegrating tablet (Nurtec ODT) 75 mg PO DAILY PRN migraine 02/17/25 sertraline 100 mg tablet 100 mg PO QHS 02/17/25 acetaminophen 500 mg tablet 500 mg PO Q6H #30 tabs 03/08/25 hydrocodone-acetaminophen 5-325mg 5mg-325mg 1 tab PO Q6H PRN pain 7 days #28 tabs 03/08/25 meloxicam 15 mg tablet 15 mg PO DAILY #30 tabs 03/08/25 methocarbamol 500 mg tablet 750 mg (1.5 x 500 mg) PO TID PRN pain/spasms #60 tabs 03/08/25 sennosides 8.6 mg-docusate sodium 50 mg tablet (Stimulant Laxative Plus) 2 tab PO BID PRN constipation #14 tabs 03/08/25 03/08/25 1411 <Electronically signed by Isabel Davis> Date _ Isabel Davis Cosigner Signature (if applicable): Date CC: ~ Signed [facility] Work Phone: Evaluation note* Diagnosis Family history of breast cancer Family history of malignant neoplasm of breast Family history of colon cancer Family history of malignant neoplasm of gastrointestinal tract Family history of pancreatic cancer Family history of malignant neoplasm of gastrointestinal tract [facility] Diagnosis Onset Date Resolution Status Change in skin mole acute Chronic back pain chronic Hypothyroidism chronic Migraine chronic CALI (obstructive sleep apnea) acute Obesity (BMI 30.0-34.9) 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 [facility] Work Phone: Evaluation note* Diagnosis Onset Date Resolution Status CALI (obstructive sleep apnea) acute Obesity (BMI 30.0-34.9) 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 [facility] Work Phone: Evaluation note* Diagnosis Onset Date Resolution Status CALI (obstructive sleep apnea) acute Obesity (BMI 30.0-34.9) 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 Fatigue acute CALI (obstructive sleep apnea) acute Hypothyroidism chronic [facility] Work Phone: Evaluation note* Diagnosis Onset Date Resolution Status Fatigue acute CALI (obstructive sleep apnea) acute Hypothyroidism chronic Right ankle pain noneactive Fall noneactive Abrasion of left knee noneac tive Foot pain acute Left knee pain acute Hypothyroidism chronic [facility] Work Phone: Evaluation note* Diagnosis Onset Date Resolution Status Right ankle pain noneactive Fall noneactive Abrasion of left knee noneac tive Foot pain acute Left knee pain acute Hypothyroidism chronic [facility] Work Phone: Evaluation noteNo assessment information available [facility] Work Phone: Evaluation note* Diagnosis Onset Date Resolution Status Arthritis chronic Fatigue chronic Hypothyroidism chronic CALI (obstructive sleep apnea) chronic [facility] Work Phone: Evaluation note* Diagnosis Onset Date Resolution Status Obesity (BMI 30.0-34.9) 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 CALI (obstructive sleep apnea) chronic Family history of pancreatic cancer acute Anxiety and depression chron ic Hypothyroidism chronic Mitral valve disease chronic Obesity (BMI 30-39.9) chroni c [facility] Work Phone: Evaluation note* Diagnosis Onset Date Resolution Status Obesity (BMI 30.0-34.9) 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 CALI (obstructive sleep apnea) chronic Family history of pancreatic cancer acute Anxiety and depression chron ic Hypothyroidism chronic Mitral valve disease chronic Obesity (BMI 30-39.9) chroni c Change in skin mole acute Anxiety and depression chron ic Chronic back pain chronic Obesity (BMI 30-39.9) chroni c [facility] Work Phone: Evaluation note* Diagnosis Onset Date Resolution Status Obesity (BMI 30.0-34.9) 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 CALI (obstructive sleep apnea) chronic Family history of pancreatic cancer acute Anxiety and depression chron ic Hypothyroidism chronic Mitral valve disease chronic Obesity (BMI 30-39.9) chroni c Change in skin mole acute Anxiety and depression chron ic Chronic back pain chronic Obesity (BMI 30-39.9) chroni c Cervical kyphosis acute Spondylolisthesis, lumbar region acute [facility] Work Phone: Evaluation note* Diagnosis Onset Date Resolution Status Family history of pancreatic cancer acute Anxiety and depression chron ic Hypothyroidism chronic Mitral valve disease chronic Obesity (BMI 30-39.9) chroni c Change in skin mole acute Anxiety and depression chron ic Chronic back pain chronic Obesity (BMI 30-39.9) chroni c Cervical kyphosis acute Spondylolisthesis, lumbar region acute Cervical kyphosis acute Spondylolisthesis, lumbar region acute Tarlov cysts acute [facility] Work Phone: Evaluation note* Diagnosis Onset Date Resolution Status Change in skin mole acute Anxiety and depression chron ic Chronic back pain chronic Obesity (BMI 30-39.9) chroni c Cervical kyphosis acute Spondylolisthesis, lumbar region acute Cervical kyphosis acute Spondylolisthesis, lumbar region acute Tarlov cysts acute [facility] Work Phone: [facility] Discharge instructionsAmbulatory Orders* Nutrition Referral Location: None Selected [facility] Work Phone: Hospital Discharge instructionsAmbulatory Orders* Orthopedics Location: None Selected [facility] Work Phone: Hospital Discharge instructionsAmbulatory Orders* Physical Therapy Referral Location: None Selected [facility] Work Phone: Hospital Discharge instructionsAmbulatory Orders* 12 Lead EKG [[facility]] Time Frame: 1 Day, Location: None Selected Additional Instructions Keep Tegaderm and gauze clean and dry. After 5 days remove the Tegaderm and gauze and cover incision with a Band-Aid. Replace Band-Aid daily thereafter. Wear cervical collar full-time for the first 2 weeks. Eat soft solid foods as needed for dysphagia. Sleep in a recliner to help with swelling. No bending, lifting, twisting. Follow-up in clinic in 2 weeks.[facility] Work Phone: Instructions* Name Dates Details How to Access Health Informa tion Online using Patient Portal and [employer] Apps Indication:Nonsmoker Start:02-Aug-2020 Instruction Type:Patient Education Patient Instructions Indication:Nonsmoker Start:02-Aug-2020 Instruction Type:Provider Instructions for Treatment How to Access Health Informa tion Online using Patient Portal and [employer] Apps Indication:Nonsmoker Start:17-Jul-2020 Instruction Type:Patient Education Patient Instructions Indication:Nonsmoker Start:17-Jul-2020 Instruction Type:Provider Instructions for Treatment How to access health informa tion online Indication:BMI 30.0-30.9,adult Start:27-Jun-2019 Instruction Type:Patient Education How to access health informa tion online - Detail Indication:BMI 30.0-30.9,adult Start:27-Jun-2019 Instruction Type:Patient Education Patient Instructions Indication:BMI 30.0-30.9,adult Start:27-Jun-2019 Instruction Type:Provider Instructions for Treatment Patient Instructions Indication:Rash Start:10-Jun-2019 Instruction Type:Provider Instructions for Treatment How to access health informa tion online Indication:Nonsmoker Start:13-May-2019 Instruction Type:Patient Education How to access health informa tion online - Detail Indication:Nonsmoker Start:13-May-2019 Instruction Type:Patient Education Patient Instructions Indication:Nonsmoker Start:13-May-2019 Instruction Type:Provider Instructions for Treatment Patient Instructions Indication:Hypothyroid Start:27-Apr-2019 Instruction Type:Provider Instructions for Treatment How to access health informa tion online Indication:Hypothyroid Start:27-Apr-2019 Instruction Type:Patient Education How to access health informa tion online - Detail Indication:Hypothyroid Start:27-Apr-2019 Instruction Type:Patient Education How to access health informa tion online Indication:Non-smoker Start:27-May-2016 Instruction Type:Patient Education How to access health informa tion online - Detail Indication:Non-smoker Start:27-May-2016 Instruction Type:Patient Education Patient Instructions Indication:Non-smoker Start:27-May-2016 Instruction Type:Provider Instructions for Treatment How to access health informa tion online Indication:Acquired hypothyroidism Start:10-Dec-2015 Instruction Type:Patient Education How to access health informa tion online - Detail Indication:Acquired hypothyroidism Start:10-Dec-2015 Instruction Type:Patient Education Patient Instructions Indication:Acquired hypothyroidism Start:10-Dec-2015 Instruction Type:Provider Instructions for Treatment How to access health informa tion online Indication:Acquired hypothyroidism Start:25-Jul-2015 Instruction Type:Patient Education How to access health informa tion online - Detail Indication:Acquired hypothyroidism Start:25-Jul-2015 Instruction Type:Patient Education Patient Instructions Indication:Acquired hypothyroidism Start:25-Jul-2015 Instruction Type:Provider Instructions for Treatment How to access health informa tion online Indication:Neoplasm of uncertain behavior of skin Start:06-Mar-2015 Instruction Type:Patient Education How to access health informa tion online - Detail Indication:Neoplasm of uncertain behavior of skin Start:06-Mar-2015 Instruction Type:Patient Education Patient Instructions Indication:Neoplasm of uncertain behavior of skin Start:06-Mar-2015 Instruction Type:Provider Instructions for Treatment How to access health informa tion online Indication:Acquired hypothyroidism Start:02-Mar-2015 Instruction Type:Patient Education How to access health informa tion online - Detail Indication:Acquired hypothyroidism Start:02-Mar-2015 Instruction Type:Patient Education Patient Instructions Indication:Acquired hypothyroidism Start:02-Mar-2015 Instruction Type:Provider Instructions for Treatment Patient Instructions Indication:Acquired hypothyroidism Start:21-Nov-2014 Instruction Type:Provider Instructions for Treatment Patient Instructions Indication:Dysthymic Start:26-Apr-2014 Instruction Type:Provider Instructions for Treatment Patient Instructions Indication:Intractable migraine without status migrainosus, unspecified migraine type Start:06-Feb-2014 Instruction Type:Provider Instructions for Treatment How to access health informa tion online Indication:Intractable migraine without status migrainosus, unspecified migraine type Start:06-Feb-2014 Instruction Type:Patient Education How to access health informa tion online - Detail Indication:Intractable migraine without status migrainosus, unspecified migraine type Start:06-Feb-2014 Instruction Type:Patient Education Patient Instructions Indication:Migraine Start:17-Jan-2014 Instruction Type:Provider Instructions for Treatment Patient Instructions Indication:Encounter for pre-employment examination Start:21-Dec-2013 Instruction Type:Provider Instructions for Treatment Patient Instructions Indication:Cervical Radiculopathy Start:26-Apr-2013 Instruction Type:Provider Instructions for Treatment Patient Instructions Indication:Constipation Start:16-Jun-2012 Instruction Type:Provider Instructions for Treatment Patient Instructions Indication:Acquired hypothyroidism Start:14-Apr-2012 Instruction Type:Provider Instructions for Treatment [facility] Work Phone: Instructions* Name Dates Details Patient Instructions Indication:Nonsmoker Start:06-May-2021 Instruction Type:Provider Instructions for Treatment How to Access Health Informa tion Online using Patient Portal and [employer] Apps Indication:Nonsmoker Start:06-May-2021 Instruction Type:Patient Education Patient Instructions Indication:BMI 32.0-32.9,adult Start:22-Mar-2021 Instruction Type:Provider Instructions for Treatment How to Access Health Informa tion Online using Patient Portal and [employer] Apps Indication:BMI 32.0-32.9,adult Start:22-Mar-2021 Instruction Type:Patient Education How to Access Health Informa tion Online using Patient Portal and [employer] Apps Indication:Nonsmoker Start:02-Aug-2020 Instruction Type:Patient Education Patient Instructions Indication:Nonsmoker Start:02-Aug-2020 Instruction Type:Provider Instructions for Treatment How to Access Health Informa tion Online using Patient Portal and [employer] Apps Indication:Nonsmoker Start:17-Jul-2020 Instruction Type:Patient Education Patient Instructions Indication:Nonsmoker Start:17-Jul-2020 Instruction Type:Provider Instructions for Treatment How to access health informa tion online Indication:BMI 30.0-30.9,adult Start:27-Jun-2019 Instruction Type:Patient Education How to access health informa tion online - Detail Indication:BMI 30.0-30.9,adult Start:27-Jun-2019 Instruction Type:Patient Education Patient Instructions Indication:BMI 30.0-30.9,adult Start:27-Jun-2019 Instruction Type:Provider Instructions for Treatment Patient Instructions Indication:Rash Start:10-Jun-2019 Instruction Type:Provider Instructions for Treatment How to access health informa tion online Indication:Nonsmoker Start:13-May-2019 Instruction Type:Patient Education How to access health informa tion online - Detail Indication:Nonsmoker Start:13-May-2019 Instruction Type:Patient Education Patient Instructions Indication:Nonsmoker Start:13-May-2019 Instruction Type:Provider Instructions for Treatment Patient Instructions Indication:Hypothyroid Start:27-Apr-2019 Instruction Type:Provider Instructions for Treatment How to access health informa tion online Indication:Hypothyroid Start:27-Apr-2019 Instruction Type:Patient Education How to access health informa tion online - Detail Indication:Hypothyroid Start:27-Apr-2019 Instruction Type:Patient Education How to access health informa tion online Indication:Non-smoker Start:27-May-2016 Instruction Type:Patient Education How to access health informa tion online - Detail Indication:Non-smoker Start:27-May-2016 Instruction Type:Patient Education Patient Instructions Indication:Non-smoker Start:27-May-2016 Instruction Type:Provider Instructions for Treatment How to access health informa tion online Indication:Acquired hypothyroidism Start:10-Dec-2015 Instruction Type:Patient Education How to access health informa tion online - Detail Indication:Acquired hypothyroidism Start:10-Dec-2015 Instruction Type:Patient Education Patient Instructions Indication:Acquired hypothyroidism Start:10-Dec-2015 Instruction Type:Provider Instructions for Treatment How to access health informa tion online Indication:Acquired hypothyroidism Start:25-Jul-2015 Instruction Type:Patient Education How to access health informa tion online - Detail Indication:Acquired hypothyroidism Start:25-Jul-2015 Instruction Type:Patient Education Patient Instructions Indication:Acquired hypothyroidism Start:25-Jul-2015 Instruction Type:Provider Instructions for Treatment How to access health informa tion online Indication:Neoplasm of uncertain behavior of skin Start:06-Mar-2015 Instruction Type:Patient Education How to access health informa tion online - Detail Indication:Neoplasm of uncertain behavior of skin Start:06-Mar-2015 Instruction Type:Patient Education Patient Instructions Indication:Neoplasm of uncertain behavior of skin Start:06-Mar-2015 Instruction Type:Provider Instructions for Treatment How to access health informa tion online Indication:Acquired hypothyroidism Start:02-Mar-2015 Instruction Type:Patient Education How to access health informa tion online - Detail Indication:Acquired hypothyroidism Start:02-Mar-2015 Instruction Type:Patient Education Patient Instructions Indication:Acquired hypothyroidism Start:02-Mar-2015 Instruction Type:Provider Instructions for Treatment Patient Instructions Indication:Acquired hypothyroidism Start:21-Nov-2014 Instruction Type:Provider Instructions for Treatment Patient Instructions Indication:Dysthymic Start:26-Apr-2014 Instruction Type:Provider Instructions for Treatment Patient Instructions Indication:Intractable migraine without status migrainosus, unspecified migraine type Start:06-Feb-2014 Instruction Type:Provider Instructions for Treatment How to access health informa tion online Indication:Intractable migraine without status migrainosus, unspecified migraine type Start:06-Feb-2014 Instruction Type:Patient Education How to access health informa tion online - Detail Indication:Intractable migraine without status migrainosus, unspecified migraine type Start:06-Feb-2014 Instruction Type:Patient Education Patient Instructions Indication:Migraine Start:17-Jan-2014 Instruction Type:Provider Instructions for Treatment Patient Instructions Indication:Encounter for pre-employment examination Start:21-Dec-2013 Instruction Type:Provider Instructions for Treatment Patient Instructions Indication:Cervical Radiculopathy Start:26-Apr-2013 Instruction Type:Provider Instructions for Treatment Patient Instructions Indication:Constipation Start:16-Jun-2012 Instruction Type:Provider Instructions for Treatment Patient Instructions Indication:Acquired hypothyroidism Start:14-Apr-2012 Instruction Type:Provider Instructions for Treatment [facility] Work Phone: Instructions* Name Dates Details Patient Instructions Indication:Nonsmoker Start:06-May-2021 Instruction Type:Provider Instructions for Treatment How to Access Health Informa tion Online using Patient Portal and [employer] Apps Indication:Nonsmoker Start:06-May-2021 Instruction Type:Patient Education Patient Instructions Indication:BMI 32.0-32.9,adult Start:22-Mar-2021 Instruction Type:Provider Instructions for Treatment How to Access Health Informa tion Online using Patient Portal and [employer] Indication:BMI 32.0-32.9,adult Start:22-Mar-2021 Instruction Type:Patient Education How to Access Health Informa tion Online using Patient Portal and [employer] Apps Indication:Nonsmoker Start:02-Aug-2020 Instruction Type:Patient Education Patient Instructions Indication:Nonsmoker Start:02-Aug-2020 Instruction Type:Provider Instructions for Treatment How to Access Health Informa tion Online using Patient Portal and [employer] Apps Indication:Nonsmoker Start:17-Jul-2020 Instruction Type:Patient Education Patient Instructions Indication:Nonsmoker Start:17-Jul-2020 Instruction Type:Provider Instructions for Treatment How to access health informa tion online Indication:BMI 30.0-30.9,adult Start:27-Jun-2019 Instruction Type:Patient Education How to access health informa tion online - Detail Indication:BMI 30.0-30.9,adult Start:27-Jun-2019 Instruction Type:Patient Education Patient Instructions Indication:BMI 30.0-30.9,adult Start:27-Jun-2019 Instruction Type:Provider Instructions for Treatment Patient Instructions Indication:Rash Start:10-Jun-2019 Instruction Type:Provider Instructions for Treatment How to access health informa tion online Indication:Nonsmoker Start:13-May-2019 Instruction Type:Patient Education How to access health informa tion online - Detail Indication:Nonsmoker Start:13-May-2019 Instruction Type:Patient Education Patient Instructions Indication:Nonsmoker Start:13-May-2019 Instruction Type:Provider Instructions for Treatment Patient Instructions Indication:Hypothyroid Start:27-Apr-2019 Instruction Type:Provider Instructions for Treatment How to access health informa tion online Indication:Hypothyroid Start:27-Apr-2019 Instruction Type:Patient Education How to access health informa tion online - Detail Indication:Hypothyroid Start:27-Apr-2019 Instruction Type:Patient Education How to access health informa tion online Indication:Non-smoker Start:27-May-2016 Instruction Type:Patient Education How to access health informa tion online - Detail Indication:Non-smoker Start:27-May-2016 Instruction Type:Patient Education Patient Instructions Indication:Non-smoker Start:27-May-2016 Instruction Type:Provider Instructions for Treatment How to access health informa tion online Indication:Acquired hypothyroidism Start:10-Dec-2015 Instruction Type:Patient Education How to access health informa tion online - Detail Indication:Acquired hypothyroidism Start:10-Dec-2015 Instruction Type:Patient Education Patient Instructions Indication:Acquired hypothyroidism Start:10-Dec-2015 Instruction Type:Provider Instructions for Treatment How to access health informa tion online Indication:Acquired hypothyroidism Start:25-Jul-2015 Instruction Type:Patient Education How to access health informa tion online - Detail Indication:Acquired hypothyroidism Start:25-Jul-2015 Instruction Type:Patient Education Patient Instructions Indication:Acquired hypothyroidism Start:25-Jul-2015 Instruction Type:Provider Instructions for Treatment How to access health informa tion online Indication:Neoplasm of uncertain behavior of skin Start:06-Mar-2015 Instruction Type:Patient Education How to access health informa tion online - Detail Indication:Neoplasm of uncertain behavior of skin Start:06-Mar-2015 Instruction Type:Patient Education Patient Instructions Indication:Neoplasm of uncertain behavior of skin Start:06-Mar-2015 Instruction Type:Provider Instructions for Treatment How to access health informa tion online Indication:Acquired hypothyroidism Start:02-Mar-2015 Instruction Type:Patient Education How to access health informa tion online - Detail Indication:Acquired hypothyroidism Start:02-Mar-2015 Instruction Type:Patient Education Patient Instructions Indication:Acquired hypothyroidism Start:02-Mar-2015 Instruction Type:Provider Instructions for Treatment Patient Instructions Indication:Acquired hypothyroidism Start:21-Nov-2014 Instruction Type:Provider Instructions for Treatment Patient Instructions Indication:Dysthymic Start:26-Apr-2014 Instruction Type:Provider Instructions for Treatment Patient Instructions Indication:Intractable migraine without status migrainosus, unspecified migraine type Start:06-Feb-2014 Instruction Type:Provider Instructions for Treatment How to access health informa tion online Indication:Intractable migraine without status migrainosus, unspecified migraine type Start:06-Feb-2014 Instruction Type:Patient Education How to access health informa tion online - Detail Indication:Intractable migraine without status migrainosus, unspecified migraine type Start:06-Feb-2014 Instruction Type:Patient Education Patient Instructions Indication:Migraine Start:17-Jan-2014 Instruction Type:Provider Instructions for Treatment Patient Instructions Indication:Encounter for pre-employment examination Start:21-Dec-2013 Instruction Type:Provider Instructions for Treatment Patient Instructions Indication:Cervical Radiculopathy Start:26-Apr-2013 Instruction Type:Provider Instructions for Treatment Patient Instructions Indication:Constipation Start:16-Jun-2012 Instruction Type:Provider Instructions for Treatment Patient Instructions Indication:Acquired hypothyroidism Start:14-Apr-2012 Instruction Type:Provider Instructions for Treatment [facility]; [facility] Work Phone: Instructions* Name Dates Details Patient Instructions Indication:Nonsmoker Start:06-May-2021 Instruction Type:Provider Instructions for Treatment How to Access Health Informa tion Online using Patient Portal and [employer] Apps Indication:Nonsmoker Start:06-May-2021 Instruction Type:Patient Education Patient Instructions Indication:BMI 32.0-32.9,adult Start:22-Mar-2021 Instruction Type:Provider Instructions for Treatment How to Access Health Informa tion Online using Patient Portal and [employer] Apps Indication:BMI 32.0-32.9,adult Start:22-Mar-2021 Instruction Type:Patient Education How to Access Health Informa tion Online using Patient Portal and [employer] Apps Indication:Nonsmoker Start:02-Aug-2020 Instruction Type:Patient Education Patient Instructions Indication:Nonsmoker Start:02-Aug-2020 Instruction Type:Provider Instructions for Treatment How to Access Health Informa tion Online using Patient Portal and [employer] Apps Indication:Nonsmoker Start:17-Jul-2020 Instruction Type:Patient Education Patient Instructions Indication:Nonsmoker Start:17-Jul-2020 Instruction Type:Provider Instructions for Treatment How to access health informa tion online Indication:BMI 30.0-30.9,adult Start:27-Jun-2019 Instruction Type:Patient Education How to access health informa tion online - Detail Indication:BMI 30.0-30.9,adult Start:27-Jun-2019 Instruction Type:Patient Education Patient Instructions Indication:BMI 30.0-30.9,adult Start:27-Jun-2019 Instruction Type:Provider Instructions for Treatment Patient Instructions Indication:Rash Start:10-Jun-2019 Instruction Type:Provider Instructions for Treatment How to access health informa tion online Indication:Nonsmoker Start:13-May-2019 Instruction Type:Patient Education How to access health informa tion online - Detail Indication:Nonsmoker Start:13-May-2019 Instruction Type:Patient Education Patient Instructions Indication:Nonsmoker Start:13-May-2019 Instruction Type:Provider Instructions for Treatment Patient Instructions Indication:Hypothyroid Start:27-Apr-2019 Instruction Type:Provider Instructions for Treatment How to access health informa tion online Indication:Hypothyroid Start:27-Apr-2019 Instruction Type:Patient Education How to access health informa tion online - Detail Indication:Hypothyroid Start:27-Apr-2019 Instruction Type:Patient Education How to access health informa tion online Indication:Non-smoker Start:27-May-2016 Instruction Type:Patient Education How to access health informa tion online - Detail Indication:Non-smoker Start:27-May-2016 Instruction Type:Patient Education Patient Instructions Indication:Non-smoker Start:27-May-2016 Instruction Type:Provider Instructions for Treatment How to access health informa tion online Indication:Acquired hypothyroidism Start:10-Dec-2015 Instruction Type:Patient Education How to access health informa tion online - Detail Indication:Acquired hypothyroidism Start:10-Dec-2015 Instruction Type:Patient Education Patient Instructions Indication:Acquired hypothyroidism Start:10-Dec-2015 Instruction Type:Provider Instructions for Treatment How to access health informa tion online Indication:Acquired hypothyroidism Start:25-Jul-2015 Instruction Type:Patient Education How to access health informa tion online - Detail Indication:Acquired hypothyroidism Start:25-Jul-2015 Instruction Type:Patient Education Patient Instructions Indication:Acquired hypothyroidism Start:25-Jul-2015 Instruction Type:Provider Instructions for Treatment How to access health informa tion online Indication:Neoplasm of uncertain behavior of skin Start:06-Mar-2015 Instruction Type:Patient Education How to access health informa tion online - Detail Indication:Neoplasm of uncertain behavior of skin Start:06-Mar-2015 Instruction Type:Patient Education Patient Instructions Indication:Neoplasm of uncertain behavior of skin Start:06-Mar-2015 Instruction Type:Provider Instructions for Treatment How to access health informa tion online Indication:Acquired hypothyroidism Start:02-Mar-2015 Instruction Type:Patient Education How to access health informa tion online - Detail Indication:Acquired hypothyroidism Start:02-Mar-2015 Instruction Type:Patient Education Patient Instructions Indication:Acquired hypothyroidism Start:02-Mar-2015 Instruction Type:Provider Instructions for Treatment Patient Instructions Indication:Acquired hypothyroidism Start:21-Nov-2014 Instruction Type:Provider Instructions for Treatment Patient Instructions Indication:Dysthymic Start:26-Apr-2014 Instruction Type:Provider Instructions for Treatment Patient Instructions Indication:Intractable migraine without status migrainosus, unspecified migraine type Start:06-Feb-2014 Instruction Type:Provider Instructions for Treatment How to access health informa tion online Indication:Intractable migraine without status migrainosus, unspecified migraine type Start:06-Feb-2014 Instruction Type:Patient Education How to access health informa tion online - Detail Indication:Intractable migraine without status migrainosus, unspecified migraine type Start:06-Feb-2014 Instruction Type:Patient Education Patient Instructions Indication:Migraine Start:17-Jan-2014 Instruction Type:Provider Instructions for Treatment Patient Instructions Indication:Encounter for pre-employment examination Start:21-Dec-2013 Instruction Type:Provider Instructions for Treatment Patient Instructions Indication:Cervical Radiculopathy Start:26-Apr-2013 Instruction Type:Provider Instructions for Treatment Patient Instructions Indication:Constipation Start:16-Jun-2012 Instruction Type:Provider Instructions for Treatment Patient Instructions Indication:Acquired hypothyroidism Start:14-Apr-2012 Instruction Type:Provider Instructions for Treatment [facility] Work Phone: progress note Author Elba [facility] Services Note Date/Time April 18, 2025 1 0:17am [facility] [address] [place] [address] OFFICE VISIT Date of Service: 04/18/25 MR#: [id number] Acct: [id number] Name: ROSALIE RANDHAWA Rep #: [id number] : 1970 Provider: JESUSITA Palacios Age/Sex: 55/F Location: [facility] Status: Signed Intake Vital Signs 10/13/24 08:05 03/23/25 10:00 Height 5 ft 4 in 5 ft 4 in Intake Visit Reasons: cervical spine Chief Complaint: Cervical spine 6 week post op Accompanied by: Self Is patient in pain?: No Allergies pseudoephedrine Allergy (Unknown, Verified 04/18/25 09:54) Other sumatriptan (From Imitrex) Adverse Reaction (Unknown, Verified 04/18/25 09:54) Swelling Medications ?Medication ?Instructions ?Recorded ?Confirmed ?Type L.acidophilus-L.plantarum-L.rhamnosus 1 cap PO DAILY 0 01/16/22 04/18/25 History 1 billion cell capsule,delay rel (Probiotic Pearls Women's) Synthroid 100 mcg tablet 100 mcg PO DAILY #90 tabs 04/18/25 Rx (levothyroxine) atogepant 60 mg tablet (Qulipta) 60 mg PO DAILY 04/18/25 History rimegepant 75 mg disintegrating 75 mg PO DAILY PRN fermin randy 02/17/25 04/18/25 History tablet (Nurtec ODT) sertraline 100 mg tablet 100 mg PO QHS 02/17/2504/18 History PFSH Medical History Wears glasses Depression Low iron Pulmonary embolism Easy bruising Restless legs Injury of back Vertigo History of IBS Gastric reflux Non-smoker Asthma CPAP (continuous positive airway pressure) dependence Shortness of breath on exertion History of echocardiogram History of stress test Hx of colonic polyps Family history of colon cancer Colon cancer screening Elevated liver enzymes Mitral valve disease Obesity (BMI 30-39.9) Family history of pancreatic cancer Bilateral foot pain Skin mole Right hip pain Polyarthropathy Encounter for vitamin deficiency screening Left knee pain Change in skin mole Hypothyroidism Chronic back pain Foot pain Vitamin D deficiency Anxiety Migraine Mitral valve prolapse Hemorrhoids Cervical radiculopathy Pain in thoracic spine Myalgia Fatigue Post-menopausal Surgical History Hx of colonoscopy History of colonoscopy History of hysterectomy History of cholecystectomy Hx of tubal ligation Family History Grandmother Colon cancer at 51yrs Diabetes Breast cancer Grandfather Heart disease Mother Thyroid disorder Sister Thyroid disorder Father Hyperlipemia Uncle Cancer pancreatic Social History household members: spouse current occupational status: employed 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 Smoking Status: Never smoker alcohol intake: current alcohol intake frequency: holidays/special occasions only substance use type: does not use what type of physical activity do you participate in: none HPI cervical spine Details: This documentation accurately reflects the service provided and the decisions made by me, JESUSITA Palacios 04/18/25 0951. Part of today?s visit was documentedby Marcia Khan ATC, acting as scribe. ROSALIE GONZALES is a 55 year old F here today for s/p C4-6 ACDF DOS 03/07/[address] Monroy. Patient denies any pain in the neck today and states she is very glad that she had the surgery. She does not have any concerns at this time. She just wants the incision checked out. She states there is either ascab or a stitch that popped through that gets caught. The patient is very happy with the outcome of her surgery. She says that since her surgery she has not had any migraines. This surgery has also helped her radicular symptoms and she no longer has any arm pain. Ortho Exam General General: Yes no acute distress Neurologic: Yes alert and Yes oriented x3 Psychologic: Yes reasonable and appropriate Spine SPINE TESTING CERVICAL THORACIC LUMBAR Musculoskeletal Strength 0=absent - 5=normal Details: Neurological exam of the upper extremities shows 5X5 power. Normal sensation across all dermatomes. Physical examination of the neck shows a well-healing and dry surgical incision. Small suture noticed at the lateral edge of the incision. This was cut out today. Coding Level of Care Code Global Post Op Diagnoses Status post cervical spinal fusion Z98.1 Assessment and Plan Assessment and Plan (1) Status post cervical spinal fusion: Status: Acute Orders: Orders Cerv Spine 2 or 3 Views Today Z98.1 - Arthrodesis status Plan Obtained reviewed cervical x-rays today in the clinic. Independent interpretation of the x-rays was performed. X-rays show hardware and bone graftin good position. The patient is now 6 weeks out C4-6 ACDF. The patient is very happy with the outcome of her surgery and she has minimal to no pain. She reports that physical therapy is going well. At times she does get some achiness over her trapezius muscles after she is more active during the day. She will continue restrictions of no bending, lifting, twisting until 3 months postop. Discussed that at this time it is okay for her to lift upwards of 15 to 20 pounds. She denies any dysphagia. She continues to wear the bone stimulator. She will follow-up in 6 weeks for 3-month follow-up. Patient is in agreement to the plan. 04/18/25 1025 <Electronically signed by Elba MC> Date _ Elba MC Cosigner Signature: Date (if applicable) CC: BAY Hernandez; Dr. Oleksandr Holbrook MD ~ [facility] Work Phone: Reason for referral (narrative)No reason for referral information availableBlProvidence [facility] Work Phone: Family History No Family History Records FoundUnknown Family Member Name Dates Details Father Comments:Cholesterol, HTN Status:Active First Degree Relatives Comments:CA, DM, Heart/Lung dx, thyroid dx Status:Active Mother Comments:DDD, HTN Status:Active Unknown Family Member Name Dates Details Father Comments:Cholesterol, HTN Status:Active First Degree Relatives Comments:CA, DM, Heart/Lung dx, thyroid dx Status:Active Mother Comments:DDD, HTN Status:Active Unknown Family Member Name Dates Details Father Comments:Cholesterol, HTN Status:Active First Degree Relatives Comments:CA, DM, Heart/Lung dx, thyroid dx Status:Active Mother Comments:DDD, HTN Status:Active Unknown Family Member Name Dates Details Father Comments:Cholesterol, HTN Status:Active First Degree Relatives Comments:CA, DM, Heart/Lung dx, thyroid dx Status:Active Mother Comments:DDD, HTN Status:Active Unknown Family Member Name Dates Details Father Comments:Cholesterol, HTN Status:Active First Degree Relatives Comments:CA, DM, Heart/Lung dx, thyroid dx Status:Active Mother Comments:DDD, HTN Status:Active Unknown Family Member Name Dates Details Father Comments:Cholesterol, HTN Status:Active First Degree Relatives Comments:CA, DM, Heart/Lung dx, thyroid dx Status:Active Mother Comments:DDD, HTN Status:Active Unknown Family Member Name Dates Details Father Comments:Cholesterol, HTN Status:Active First Degree Relatives Comments:CA, DM, Heart/Lung dx, thyroid dx Status:Active Mother Comments:DDD, HTN Status:Active Unknown Family Member Name Dates Details Father Comments:Cholesterol, HTN Status:Active First Degree Relatives Comments:CA, DM, Heart/Lung dx, thyroid dx Status:Active Mother Comments:DDD, HTN Status:Active Unknown Family Member Name Dates Details Father Comments:Cholesterol, HTN Status:Active First Degree Relatives Comments:CA, DM, Heart/Lung dx, thyroid dx Status:Active Mother Comments:DDD, HTN Status:Active Unknown Family Member Name Dates Details Father Comments:Cholesterol, HTN Status:Active First Degree Relatives Comments:CA, DM, Heart/Lung dx, thyroid dx Status:Active Mother Comments:DDD, HTN Status:Active Unknown Family Member Name Dates Details Father Comments:Cholesterol, HTN Status:Active First Degree Relatives Comments:CA, DM, Heart/Lung dx, thyroid dx Status:Active Mother Comments:DDD, HTN Status:Active Unknown Family Member Name Dates Details Father Comments:Cholesterol, HTN Status:Active First Degree Relatives Comments:CA, DM, Heart/Lung dx, thyroid dx Status:Active Mother Comments:DDD, HTN Status:Active Unknown Family Member Name Dates Details Father Comments:Cholesterol, HTN Status:Active First Degree Relatives Comments:CA, DM, Heart/Lung dx, thyroid dx Status:Active Mother Comments:DDD, HTN Status:Active Unknown Family Member Name Dates Details Father Comments:Cholesterol, HTN Status:Active First Degree Relatives Comments:CA, DM, Heart/Lung dx, thyroid dx Status:Active Mother Comments:DDD, HTN Status:Active Unknown Family Member Name Dates Details Father Comments:Cholesterol, HTN Status:Active First Degree Relatives Comments:CA, DM, Heart/Lung dx, thyroid dx Status:Active Mother Comments:DDD, HTN Status:Active Unknown Family Member Name Dates Details Father Comments:Cholesterol, HTN Status:Active First Degree Relatives Comments:CA, DM, Heart/Lung dx, thyroid dx Status:Active Mother Comments:DDD, HTN Status:Active Unknown Family Member Name Dates Details Father Comments:Cholesterol, HTN Status:Active First Degree Relatives Comments:CA, DM, Heart/Lung dx, thyroid dx Status:Active Mother Comments:DDD, HTN Status:Active Unknown Family Member Name Dates Details Father Comments:Cholesterol, HTN Status:Active First Degree Relatives Comments:CA, DM, Heart/Lung dx, thyroid dx Status:Active Mother Comments:DDD, HTN Status:Active Relationship Condition Age at Onset Recorded Date/T susan grandmother Malignant neoplasm of colon Unknown Diabetes mellitus Unknown Malignant neoplasm of breast Unknown grandfather Cardiac disease Unknown mother Disorder of thyroid Unknown sister Disorder of thyroid Unknown father Hyperlipidemia Unknown uncle Malignant neoplasm Unknown Unknown Family Member Name Dates Details Father Comments:Cholesterol, HTN Status:Active First Degree Relatives Comments:CA, DM, Heart/Lung dx, thyroid dx Status:Active Mother Comments:DDD, HTN Status:Active Unknown Family Member Name Dates Details Father Comments:Cholesterol, HTN Status:Active First Degree Relatives Comments:CA, DM, Heart/Lung dx, thyroid dx Status:Active Mother Comments:DDD, HTN Status:Active Unknown Family Member Name Dates Details Father Comments:Cholesterol, HTN Status:Active First Degree Relatives Comments:CA, DM, Heart/Lung dx, thyroid dx Status:Active Mother Comments:DDD, HTN Status:Active Instructions Name Dates Details Patient Instructions Indication:Hypothyroid Start:27-Apr-2019 Instruction Type:Provider Instructions for Treatment How to access health informa tion online Indication:Hypothyroid Start:27-Apr-2019 Instruction Type:Patient Education How to access health informa tion online - Detail Indication:Hypothyroid Start:27-Apr-2019 Instruction Type:Patient Education How to access health informa tion online Indication:Non-smoker Start:27-May-2016 Instruction Type:Patient Education How to access health informa tion online - Detail Indication:Non-smoker Start:27-May-2016 Instruction Type:Patient Education Patient Instructions Indication:Non-smoker Start:27-May-2016 Instruction Type:Provider Instructions for Treatment How to access health informa tion online Indication:Acquired hypothyroidism Start:10-Dec-2015 Instruction Type:Patient Education How to access health informa tion online - Detail Indication:Acquired hypothyroidism Start:10-Dec-2015 Instruction Type:Patient Education Patient Instructions Indication:Acquired hypothyroidism Start:10-Dec-2015 Instruction Type:Provider Instructions for Treatment How to access health informa tion online Indication:Acquired hypothyroidism Start:25-Jul-2015 Instruction Type:Patient Education How to access health informa tion online - Detail Indication:Acquired hypothyroidism Start:25-Jul-2015 Instruction Type:Patient Education Patient Instructions Indication:Acquired hypothyroidism Start:25-Jul-2015 Instruction Type:Provider Instructions for Treatment How to access health informa tion online Indication:Neoplasm of uncertain behavior of skin Start:06-Mar-2015 Instruction Type:Patient Education How to access health informa tion online - Detail Indication:Neoplasm of uncertain behavior of skin Start:06-Mar-2015 Instruction Type:Patient Education Patient Instructions Indication:Neoplasm of uncertain behavior of skin Start:06-Mar-2015 Instruction Type:Provider Instructions for Treatment How to access health informa tion online Indication:Acquired hypothyroidism Start:02-Mar-2015 Instruction Type:Patient Education How to access health informa tion online - Detail Indication:Acquired hypothyroidism Start:02-Mar-2015 Instruction Type:Patient Education Patient Instructions Indication:Acquired hypothyroidism Start:02-Mar-2015 Instruction Type:Provider Instructions for Treatment Patient Instructions Indication:Acquired hypothyroidism Start:21-Nov-2014 Instruction Type:Provider Instructions for Treatment Patient Instructions Indication:Dysthymic Start:26-Apr-2014 Instruction Type:Provider Instructions for Treatment Patient Instructions Indication:Intractable migraine without status migrainosus, unspecified migraine type Start:06-Feb-2014 Instruction Type:Provider Instructions for Treatment How to access health informa tion online Indication:Intractable migraine without status migrainosus, unspecified migraine type Start:06-Feb-2014 Instruction Type:Patient Education How to access health informa tion online - Detail Indication:Intractable migraine without status migrainosus, unspecified migraine type Start:06-Feb-2014 Instruction Type:Patient Education Patient Instructions Indication:Migraine Start:17-Jan-2014 Instruction Type:Provider Instructions for Treatment Patient Instructions Indication:Encounter for pre-employment examination Start:21-Dec-2013 Instruction Type:Provider Instructions for Treatment Patient Instructions Indication:Cervical Radiculopathy Start:26-Apr-2013 Instruction Type:Provider Instructions for Treatment Patient Instructions Indication:Constipation Start:16-Jun-2012 Instruction Type:Provider Instructions for Treatment Patient Instructions Indication:Acquired hypothyroidism Start:14-Apr-2012 Instruction Type:Provider Instructions for Treatment Name Dates Details Patient Instructions Indication:Hypothyroid Start:27-Apr-2019 Instruction Type:Provider Instructions for Treatment How to access health informa tion online Indication:Hypothyroid Start:27-Apr-2019 Instruction Type:Patient Education How to access health informa tion online - Detail Indication:Hypothyroid Start:27-Apr-2019 Instruction Type:Patient Education How to access health informa tion online Indication:Non-smoker Start:27-May-2016 Instruction Type:Patient Education How to access health informa tion online - Detail Indication:Non-smoker Start:27-May-2016 Instruction Type:Patient Education Patient Instructions Indication:Non-smoker Start:27-May-2016 Instruction Type:Provider Instructions for Treatment How to access health informa tion online Indication:Acquired hypothyroidism Start:10-Dec-2015 Instruction Type:Patient Education How to access health informa tion online - Detail Indication:Acquired hypothyroidism Start:10-Dec-2015 Instruction Type:Patient Education Patient Instructions Indication:Acquired hypothyroidism Start:10-Dec-2015 Instruction Type:Provider Instructions for Treatment How to access health informa tion online Indication:Acquired hypothyroidism Start:25-Jul-2015 Instruction Type:Patient Education How to access health informa tion online - Detail Indication:Acquired hypothyroidism Start:25-Jul-2015 Instruction Type:Patient Education Patient Instructions Indication:Acquired hypothyroidism Start:25-Jul-2015 Instruction Type:Provider Instructions for Treatment How to access health informa tion online Indication:Neoplasm of uncertain behavior of skin Start:06-Mar-2015 Instruction Type:Patient Education How to access health informa tion online - Detail Indication:Neoplasm of uncertain behavior of skin Start:06-Mar-2015 Instruction Type:Patient Education Patient Instructions Indication:Neoplasm of uncertain behavior of skin Start:06-Mar-2015 Instruction Type:Provider Instructions for Treatment How to access health informa tion online Indication:Acquired hypothyroidism Start:02-Mar-2015 Instruction Type:Patient Education How to access health informa tion online - Detail Indication:Acquired hypothyroidism Start:02-Mar-2015 Instruction Type:Patient Education Patient Instructions Indication:Acquired hypothyroidism Start:02-Mar-2015 Instruction Type:Provider Instructions for Treatment Patient Instructions Indication:Acquired hypothyroidism Start:21-Nov-2014 Instruction Type:Provider Instructions for Treatment Patient Instructions Indication:Dysthymic Start:26-Apr-2014 Instruction Type:Provider Instructions for Treatment Patient Instructions Indication:Intractable migraine without status migrainosus, unspecified migraine type Start:06-Feb-2014 Instruction Type:Provider Instructions for Treatment How to access health informa tion online Indication:Intractable migraine without status migrainosus, unspecified migraine type Start:06-Feb-2014 Instruction Type:Patient Education How to access health informa tion online - Detail Indication:Intractable migraine without status migrainosus, unspecified migraine type Start:06-Feb-2014 Instruction Type:Patient Education Patient Instructions Indication:Migraine Start:17-Jan-2014 Instruction Type:Provider Instructions for Treatment Patient Instructions Indication:Encounter for pre-employment examination Start:21-Dec-2013 Instruction Type:Provider Instructions for Treatment Patient Instructions Indication:Cervical Radiculopathy Start:26-Apr-2013 Instruction Type:Provider Instructions for Treatment Patient Instructions Indication:Constipation Start:16-Jun-2012 Instruction Type:Provider Instructions for Treatment Patient Instructions Indication:Acquired hypothyroidism Start:14-Apr-2012 Instruction Type:Provider Instructions for Treatment Name Dates Details Patient Instructions Indication:Hypothyroid Start:27-Apr-2019 Instruction Type:Provider Instructions for Treatment How to access health informa tion online Indication:Hypothyroid Start:27-Apr-2019 Instruction Type:Patient Education How to access health informa tion online - Detail Indication:Hypothyroid Start:27-Apr-2019 Instruction Type:Patient Education How to access health informa tion online Indication:Non-smoker Start:27-May-2016 Instruction Type:Patient Education How to access health informa tion online - Detail Indication:Non-smoker Start:27-May-2016 Instruction Type:Patient Education Patient Instructions Indication:Non-smoker Start:27-May-2016 Instruction Type:Provider Instructions for Treatment How to access health informa tion online Indication:Acquired hypothyroidism Start:10-Dec-2015 Instruction Type:Patient Education How to access health informa tion online - Detail Indication:Acquired hypothyroidism Start:10-Dec-2015 Instruction Type:Patient Education Patient Instructions Indication:Acquired hypothyroidism Start:10-Dec-2015 Instruction Type:Provider Instructions for Treatment How to access health informa tion online Indication:Acquired hypothyroidism Start:25-Jul-2015 Instruction Type:Patient Education How to access health informa tion online - Detail Indication:Acquired hypothyroidism Start:25-Jul-2015 Instruction Type:Patient Education Patient Instructions Indication:Acquired hypothyroidism Start:25-Jul-2015 Instruction Type:Provider Instructions for Treatment How to access health informa tion online Indication:Neoplasm of uncertain behavior of skin Start:06-Mar-2015 Instruction Type:Patient Education How to access health informa tion online - Detail Indication:Neoplasm of uncertain behavior of skin Start:06-Mar-2015 Instruction Type:Patient Education Patient Instructions Indication:Neoplasm of uncertain behavior of skin Start:06-Mar-2015 Instruction Type:Provider Instructions for Treatment How to access health informa tion online Indication:Acquired hypothyroidism Start:02-Mar-2015 Instruction Type:Patient Education How to access health informa tion online - Detail Indication:Acquired hypothyroidism Start:02-Mar-2015 Instruction Type:Patient Education Patient Instructions Indication:Acquired hypothyroidism Start:02-Mar-2015 Instruction Type:Provider Instructions for Treatment Patient Instructions Indication:Acquired hypothyroidism Start:21-Nov-2014 Instruction Type:Provider Instructions for Treatment Patient Instructions Indication:Dysthymic Start:26-Apr-2014 Instruction Type:Provider Instructions for Treatment Patient Instructions Indication:Intractable migraine without status migrainosus, unspecified migraine type Start:06-Feb-2014 Instruction Type:Provider Instructions for Treatment How to access health informa tion online Indication:Intractable migraine without status migrainosus, unspecified migraine type Start:06-Feb-2014 Instruction Type:Patient Education How to access health informa tion online - Detail Indication:Intractable migraine without status migrainosus, unspecified migraine type Start:06-Feb-2014 Instruction Type:Patient Education Patient Instructions Indication:Migraine Start:17-Jan-2014 Instruction Type:Provider Instructions for Treatment Patient Instructions Indication:Encounter for pre-employment examination Start:21-Dec-2013 Instruction Type:Provider Instructions for Treatment Patient Instructions Indication:Cervical Radiculopathy Start:26-Apr-2013 Instruction Type:Provider Instructions for Treatment Patient Instructions Indication:Constipation Start:16-Jun-2012 Instruction Type:Provider Instructions for Treatment Patient Instructions Indication:Acquired hypothyroidism Start:14-Apr-2012 Instruction Type:Provider Instructions for Treatment Name Dates Details How to access health informa tion online Indication:Nonsmoker Start:13-May-2019 Instruction Type:Patient Education How to access health informa tion online - Detail Indication:Nonsmoker Start:13-May-2019 Instruction Type:Patient Education Patient Instructions Indication:Nonsmoker Start:13-May-2019 Instruction Type:Provider Instructions for Treatment Patient Instructions Indication:Hypothyroid Start:27-Apr-2019 Instruction Type:Provider Instructions for Treatment How to access health informa tion online Indication:Hypothyroid Start:27-Apr-2019 Instruction Type:Patient Education How to access health informa tion online - Detail Indication:Hypothyroid Start:27-Apr-2019 Instruction Type:Patient Education How to access health informa tion online Indication:Non-smoker Start:27-May-2016 Instruction Type:Patient Education How to access health informa tion online - Detail Indication:Non-smoker Start:27-May-2016 Instruction Type:Patient Education Patient Instructions Indication:Non-smoker Start:27-May-2016 Instruction Type:Provider Instructions for Treatment How to access health informa tion online Indication:Acquired hypothyroidism Start:10-Dec-2015 Instruction Type:Patient Education How to access health informa tion online - Detail Indication:Acquired hypothyroidism Start:10-Dec-2015 Instruction Type:Patient Education Patient Instructions Indication:Acquired hypothyroidism Start:10-Dec-2015 Instruction Type:Provider Instructions for Treatment How to access health informa tion online Indication:Acquired hypothyroidism Start:25-Jul-2015 Instruction Type:Patient Education How to access health informa tion online - Detail Indication:Acquired hypothyroidism Start:25-Jul-2015 Instruction Type:Patient Education Patient Instructions Indication:Acquired hypothyroidism Start:25-Jul-2015 Instruction Type:Provider Instructions for Treatment How to access health informa tion online Indication:Neoplasm of uncertain behavior of skin Start:06-Mar-2015 Instruction Type:Patient Education How to access health informa tion online - Detail Indication:Neoplasm of uncertain behavior of skin Start:06-Mar-2015 Instruction Type:Patient Education Patient Instructions Indication:Neoplasm of uncertain behavior of skin Start:06-Mar-2015 Instruction Type:Provider Instructions for Treatment How to access health informa tion online Indication:Acquired hypothyroidism Start:02-Mar-2015 Instruction Type:Patient Education How to access health informa tion online - Detail Indication:Acquired hypothyroidism Start:02-Mar-2015 Instruction Type:Patient Education Patient Instructions Indication:Acquired hypothyroidism Start:02-Mar-2015 Instruction Type:Provider Instructions for Treatment Patient Instructions Indication:Acquired hypothyroidism Start:21-Nov-2014 Instruction Type:Provider Instructions for Treatment Patient Instructions Indication:Dysthymic Start:26-Apr-2014 Instruction Type:Provider Instructions for Treatment Patient Instructions Indication:Intractable migraine without status migrainosus, unspecified migraine type Start:06-Feb-2014 Instruction Type:Provider Instructions for Treatment How to access health informa tion online Indication:Intractable migraine without status migrainosus, unspecified migraine type Start:06-Feb-2014 Instruction Type:Patient Education How to access health informa tion online - Detail Indication:Intractable migraine without status migrainosus, unspecified migraine type Start:06-Feb-2014 Instruction Type:Patient Education Patient Instructions Indication:Migraine Start:17-Jan-2014 Instruction Type:Provider Instructions for Treatment Patient Instructions Indication:Encounter for pre-employment examination Start:21-Dec-2013 Instruction Type:Provider Instructions for Treatment Patient Instructions Indication:Cervical Radiculopathy Start:26-Apr-2013 Instruction Type:Provider Instructions for Treatment Patient Instructions Indication:Constipation Start:16-Jun-2012 Instruction Type:Provider Instructions for Treatment Patient Instructions Indication:Acquired hypothyroidism Start:14-Apr-2012 Instruction Type:Provider Instructions for Treatment Name Dates Details How to access health informa tion online Indication:BMI 30.0-30.9,adult Start:27-Jun-2019 Instruction Type:Patient Education How to access health informa tion online - Detail Indication:BMI 30.0-30.9,adult Start:27-Jun-2019 Instruction Type:Patient Education Patient Instructions Indication:BMI 30.0-30.9,adult Start:27-Jun-2019 Instruction Type:Provider Instructions for Treatment Patient Instructions Indication:Rash Start:10-Jun-2019 Instruction Type:Provider Instructions for Treatment How to access health informa tion online Indication:Nonsmoker Start:13-May-2019 Instruction Type:Patient Education How to access health informa tion online - Detail Indication:Nonsmoker Start:13-May-2019 Instruction Type:Patient Education Patient Instructions Indication:Nonsmoker Start:13-May-2019 Instruction Type:Provider Instructions for Treatment Patient Instructions Indication:Hypothyroid Start:27-Apr-2019 Instruction Type:Provider Instructions for Treatment How to access health informa tion online Indication:Hypothyroid Start:27-Apr-2019 Instruction Type:Patient Education How to access health informa tion online - Detail Indication:Hypothyroid Start:27-Apr-2019 Instruction Type:Patient Education How to access health informa tion online Indication:Non-smoker Start:27-May-2016 Instruction Type:Patient Education How to access health informa tion online - Detail Indication:Non-smoker Start:27-May-2016 Instruction Type:Patient Education Patient Instructions Indication:Non-smoker Start:27-May-2016 Instruction Type:Provider Instructions for Treatment How to access health informa tion online Indication:Acquired hypothyroidism Start:10-Dec-2015 Instruction Type:Patient Education How to access health informa tion online - Detail Indication:Acquired hypothyroidism Start:10-Dec-2015 Instruction Type:Patient Education Patient Instructions Indication:Acquired hypothyroidism Start:10-Dec-2015 Instruction Type:Provider Instructions for Treatment How to access health informa tion online Indication:Acquired hypothyroidism Start:25-Jul-2015 Instruction Type:Patient Education How to access health informa tion online - Detail Indication:Acquired hypothyroidism Start:25-Jul-2015 Instruction Type:Patient Education Patient Instructions Indication:Acquired hypothyroidism Start:25-Jul-2015 Instruction Type:Provider Instructions for Treatment How to access health informa tion online Indication:Neoplasm of uncertain behavior of skin Start:06-Mar-2015 Instruction Type:Patient Education How to access health informa tion online - Detail Indication:Neoplasm of uncertain behavior of skin Start:06-Mar-2015 Instruction Type:Patient Education Patient Instructions Indication:Neoplasm of uncertain behavior of skin Start:06-Mar-2015 Instruction Type:Provider Instructions for Treatment How to access health informa tion online Indication:Acquired hypothyroidism Start:02-Mar-2015 Instruction Type:Patient Education How to access health informa tion online - Detail Indication:Acquired hypothyroidism Start:02-Mar-2015 Instruction Type:Patient Education Patient Instructions Indication:Acquired hypothyroidism Start:02-Mar-2015 Instruction Type:Provider Instructions for Treatment Patient Instructions Indication:Acquired hypothyroidism Start:21-Nov-2014 Instruction Type:Provider Instructions for Treatment Patient Instructions Indication:Dysthymic Start:26-Apr-2014 Instruction Type:Provider Instructions for Treatment Patient Instructions Indication:Intractable migraine without status migrainosus, unspecified migraine type Start:06-Feb-2014 Instruction Type:Provider Instructions for Treatment How to access health informa tion online Indication:Intractable migraine without status migrainosus, unspecified migraine type Start:06-Feb-2014 Instruction Type:Patient Education How to access health informa tion online - Detail Indication:Intractable migraine without status migrainosus, unspecified migraine type Start:06-Feb-2014 Instruction Type:Patient Education Patient Instructions Indication:Migraine Start:17-Jan-2014 Instruction Type:Provider Instructions for Treatment Patient Instructions Indication:Encounter for pre-employment examination Start:21-Dec-2013 Instruction Type:Provider Instructions for Treatment Patient Instructions Indication:Cervical Radiculopathy Start:26-Apr-2013 Instruction Type:Provider Instructions for Treatment Patient Instructions Indication:Constipation Start:16-Jun-2012 Instruction Type:Provider Instructions for Treatment Patient Instructions Indication:Acquired hypothyroidism Start:14-Apr-2012 Instruction Type:Provider Instructions for Treatment Name Dates Details How to access health informa tion online Indication:BMI 30.0-30.9,adult Start:27-Jun-2019 Instruction Type:Patient Education How to access health informa tion online - Detail Indication:BMI 30.0-30.9,adult Start:27-Jun-2019 Instruction Type:Patient Education Patient Instructions Indication:BMI 30.0-30.9,adult Start:27-Jun-2019 Instruction Type:Provider Instructions for Treatment Patient Instructions Indication:Rash Start:10-Jun-2019 Instruction Type:Provider Instructions for Treatment How to access health informa tion online Indication:Nonsmoker Start:13-May-2019 Instruction Type:Patient Education How to access health informa tion online - Detail Indication:Nonsmoker Start:13-May-2019 Instruction Type:Patient Education Patient Instructions Indication:Nonsmoker Start:13-May-2019 Instruction Type:Provider Instructions for Treatment Patient Instructions Indication:Hypothyroid Start:27-Apr-2019 Instruction Type:Provider Instructions for Treatment How to access health informa tion online Indication:Hypothyroid Start:27-Apr-2019 Instruction Type:Patient Education How to access health informa tion online - Detail Indication:Hypothyroid Start:27-Apr-2019 Instruction Type:Patient Education How to access health informa tion online Indication:Non-smoker Start:27-May-2016 Instruction Type:Patient Education How to access health informa tion online - Detail Indication:Non-smoker Start:27-May-2016 Instruction Type:Patient Education Patient Instructions Indication:Non-smoker Start:27-May-2016 Instruction Type:Provider Instructions for Treatment How to access health informa tion online Indication:Acquired hypothyroidism Start:10-Dec-2015 Instruction Type:Patient Education How to access health informa tion online - Detail Indication:Acquired hypothyroidism Start:10-Dec-2015 Instruction Type:Patient Education Patient Instructions Indication:Acquired hypothyroidism Start:10-Dec-2015 Instruction Type:Provider Instructions for Treatment How to access health informa tion online Indication:Acquired hypothyroidism Start:25-Jul-2015 Instruction Type:Patient Education How to access health informa tion online - Detail Indication:Acquired hypothyroidism Start:25-Jul-2015 Instruction Type:Patient Education Patient Instructions Indication:Acquired hypothyroidism Start:25-Jul-2015 Instruction Type:Provider Instructions for Treatment How to access health informa tion online Indication:Neoplasm of uncertain behavior of skin Start:06-Mar-2015 Instruction Type:Patient Education How to access health informa tion online - Detail Indication:Neoplasm of uncertain behavior of skin Start:06-Mar-2015 Instruction Type:Patient Education Patient Instructions Indication:Neoplasm of uncertain behavior of skin Start:06-Mar-2015 Instruction Type:Provider Instructions for Treatment How to access health informa tion online Indication:Acquired hypothyroidism Start:02-Mar-2015 Instruction Type:Patient Education How to access health informa tion online - Detail Indication:Acquired hypothyroidism Start:02-Mar-2015 Instruction Type:Patient Education Patient Instructions Indication:Acquired hypothyroidism Start:02-Mar-2015 Instruction Type:Provider Instructions for Treatment Patient Instructions Indication:Acquired hypothyroidism Start:21-Nov-2014 Instruction Type:Provider Instructions for Treatment Patient Instructions Indication:Dysthymic Start:26-Apr-2014 Instruction Type:Provider Instructions for Treatment Patient Instructions Indication:Intractable migraine without status migrainosus, unspecified migraine type Start:06-Feb-2014 Instruction Type:Provider Instructions for Treatment How to access health informa tion online Indication:Intractable migraine without status migrainosus, unspecified migraine type Start:06-Feb-2014 Instruction Type:Patient Education How to access health informa tion online - Detail Indication:Intractable migraine without status migrainosus, unspecified migraine type Start:06-Feb-2014 Instruction Type:Patient Education Patient Instructions Indication:Migraine Start:17-Jan-2014 Instruction Type:Provider Instructions for Treatment Patient Instructions Indication:Encounter for pre-employment examination Start:21-Dec-2013 Instruction Type:Provider Instructions for Treatment Patient Instructions Indication:Cervical Radiculopathy Start:26-Apr-2013 Instruction Type:Provider Instructions for Treatment Patient Instructions Indication:Constipation Start:16-Jun-2012 Instruction Type:Provider Instructions for Treatment Patient Instructions Indication:Acquired hypothyroidism Start:14-Apr-2012 Instruction Type:Provider Instructions for Treatment Name Dates Details How to access health informa tion online Indication:BMI 30.0-30.9,adult Start:27-Jun-2019 Instruction Type:Patient Education How to access health informa tion online - Detail Indication:BMI 30.0-30.9,adult Start:27-Jun-2019 Instruction Type:Patient Education Patient Instructions Indication:BMI 30.0-30.9,adult Start:27-Jun-2019 Instruction Type:Provider Instructions for Treatment Patient Instructions Indication:Rash Start:10-Jun-2019 Instruction Type:Provider Instructions for Treatment How to access health informa tion online Indication:Nonsmoker Start:13-May-2019 Instruction Type:Patient Education How to access health informa tion online - Detail Indication:Nonsmoker Start:13-May-2019 Instruction Type:Patient Education Patient Instructions Indication:Nonsmoker Start:13-May-2019 Instruction Type:Provider Instructions for Treatment Patient Instructions Indication:Hypothyroid Start:27-Apr-2019 Instruction Type:Provider Instructions for Treatment How to access health informa tion online Indication:Hypothyroid Start:27-Apr-2019 Instruction Type:Patient Education How to access health informa tion online - Detail Indication:Hypothyroid Start:27-Apr-2019 Instruction Type:Patient Education How to access health informa tion online Indication:Non-smoker Start:27-May-2016 Instruction Type:Patient Education How to access health informa tion online - Detail Indication:Non-smoker Start:27-May-2016 Instruction Type:Patient Education Patient Instructions Indication:Non-smoker Start:27-May-2016 Instruction Type:Provider Instructions for Treatment How to access health informa tion online Indication:Acquired hypothyroidism Start:10-Dec-2015 Instruction Type:Patient Education How to access health informa tion online - Detail Indication:Acquired hypothyroidism Start:10-Dec-2015 Instruction Type:Patient Education Patient Instructions Indication:Acquired hypothyroidism Start:10-Dec-2015 Instruction Type:Provider Instructions for Treatment How to access health informa tion online Indication:Acquired hypothyroidism Start:25-Jul-2015 Instruction Type:Patient Education How to access health informa tion online - Detail Indication:Acquired hypothyroidism Start:25-Jul-2015 Instruction Type:Patient Education Patient Instructions Indication:Acquired hypothyroidism Start:25-Jul-2015 Instruction Type:Provider Instructions for Treatment How to access health informa tion online Indication:Neoplasm of uncertain behavior of skin Start:06-Mar-2015 Instruction Type:Patient Education How to access health informa tion online - Detail Indication:Neoplasm of uncertain behavior of skin Start:06-Mar-2015 Instruction Type:Patient Education Patient Instructions Indication:Neoplasm of uncertain behavior of skin Start:06-Mar-2015 Instruction Type:Provider Instructions for Treatment How to access health informa tion online Indication:Acquired hypothyroidism Start:02-Mar-2015 Instruction Type:Patient Education How to access health informa tion online - Detail Indication:Acquired hypothyroidism Start:02-Mar-2015 Instruction Type:Patient Education Patient Instructions Indication:Acquired hypothyroidism Start:02-Mar-2015 Instruction Type:Provider Instructions for Treatment Patient Instructions Indication:Acquired hypothyroidism Start:21-Nov-2014 Instruction Type:Provider Instructions for Treatment Patient Instructions Indication:Dysthymic Start:26-Apr-2014 Instruction Type:Provider Instructions for Treatment Patient Instructions Indication:Intractable migraine without status migrainosus, unspecified migraine type Start:06-Feb-2014 Instruction Type:Provider Instructions for Treatment How to access health informa tion online Indication:Intractable migraine without status migrainosus, unspecified migraine type Start:06-Feb-2014 Instruction Type:Patient Education How to access health informa tion online - Detail Indication:Intractable migraine without status migrainosus, unspecified migraine type Start:06-Feb-2014 Instruction Type:Patient Education Patient Instructions Indication:Migraine Start:17-Jan-2014 Instruction Type:Provider Instructions for Treatment Patient Instructions Indication:Encounter for pre-employment examination Start:21-Dec-2013 Instruction Type:Provider Instructions for Treatment Patient Instructions Indication:Cervical Radiculopathy Start:26-Apr-2013 Instruction Type:Provider Instructions for Treatment Patient Instructions Indication:Constipation Start:16-Jun-2012 Instruction Type:Provider Instructions for Treatment Patient Instructions Indication:Acquired hypothyroidism Start:14-Apr-2012 Instruction Type:Provider Instructions for Treatment Name Dates Details How to access health informa tion online Indication:BMI 30.0-30.9,adult Start:27-Jun-2019 Instruction Type:Patient Education How to access health informa tion online - Detail Indication:BMI 30.0-30.9,adult Start:27-Jun-2019 Instruction Type:Patient Education Patient Instructions Indication:BMI 30.0-30.9,adult Start:27-Jun-2019 Instruction Type:Provider Instructions for Treatment Patient Instructions Indication:Rash Start:10-Jun-2019 Instruction Type:Provider Instructions for Treatment How to access health informa tion online Indication:Nonsmoker Start:13-May-2019 Instruction Type:Patient Education How to access health informa tion online - Detail Indication:Nonsmoker Start:13-May-2019 Instruction Type:Patient Education Patient Instructions Indication:Nonsmoker Start:13-May-2019 Instruction Type:Provider Instructions for Treatment Patient Instructions Indication:Hypothyroid Start:27-Apr-2019 Instruction Type:Provider Instructions for Treatment How to access health informa tion online Indication:Hypothyroid Start:27-Apr-2019 Instruction Type:Patient Education How to access health informa tion online - Detail Indication:Hypothyroid Start:27-Apr-2019 Instruction Type:Patient Education How to access health informa tion online Indication:Non-smoker Start:27-May-2016 Instruction Type:Patient Education How to access health informa tion online - Detail Indication:Non-smoker Start:27-May-2016 Instruction Type:Patient Education Patient Instructions Indication:Non-smoker Start:27-May-2016 Instruction Type:Provider Instructions for Treatment How to access health informa tion online Indication:Acquired hypothyroidism Start:10-Dec-2015 Instruction Type:Patient Education How to access health informa tion online - Detail Indication:Acquired hypothyroidism Start:10-Dec-2015 Instruction Type:Patient Education Patient Instructions Indication:Acquired hypothyroidism Start:10-Dec-2015 Instruction Type:Provider Instructions for Treatment How to access health informa tion online Indication:Acquired hypothyroidism Start:25-Jul-2015 Instruction Type:Patient Education How to access health informa tion online - Detail Indication:Acquired hypothyroidism Start:25-Jul-2015 Instruction Type:Patient Education Patient Instructions Indication:Acquired hypothyroidism Start:25-Jul-2015 Instruction Type:Provider Instructions for Treatment How to access health informa tion online Indication:Neoplasm of uncertain behavior of skin Start:06-Mar-2015 Instruction Type:Patient Education How to access health informa tion online - Detail Indication:Neoplasm of uncertain behavior of skin Start:06-Mar-2015 Instruction Type:Patient Education Patient Instructions Indication:Neoplasm of uncertain behavior of skin Start:06-Mar-2015 Instruction Type:Provider Instructions for Treatment How to access health informa tion online Indication:Acquired hypothyroidism Start:02-Mar-2015 Instruction Type:Patient Education How to access health informa tion online - Detail Indication:Acquired hypothyroidism Start:02-Mar-2015 Instruction Type:Patient Education Patient Instructions Indication:Acquired hypothyroidism Start:02-Mar-2015 Instruction Type:Provider Instructions for Treatment Patient Instructions Indication:Acquired hypothyroidism Start:21-Nov-2014 Instruction Type:Provider Instructions for Treatment Patient Instructions Indication:Dysthymic Start:26-Apr-2014 Instruction Type:Provider Instructions for Treatment Patient Instructions Indication:Intractable migraine without status migrainosus, unspecified migraine type Start:06-Feb-2014 Instruction Type:Provider Instructions for Treatment How to access health informa tion online Indication:Intractable migraine without status migrainosus, unspecified migraine type Start:06-Feb-2014 Instruction Type:Patient Education How to access health informa tion online - Detail Indication:Intractable migraine without status migrainosus, unspecified migraine type Start:06-Feb-2014 Instruction Type:Patient Education Patient Instructions Indication:Migraine Start:17-Jan-2014 Instruction Type:Provider Instructions for Treatment Patient Instructions Indication:Encounter for pre-employment examination Start:21-Dec-2013 Instruction Type:Provider Instructions for Treatment Patient Instructions Indication:Cervical Radiculopathy Start:26-Apr-2013 Instruction Type:Provider Instructions for Treatment Patient Instructions Indication:Constipation Start:16-Jun-2012 Instruction Type:Provider Instructions for Treatment Patient Instructions Indication:Acquired hypothyroidism Start:14-Apr-2012 Instruction Type:Provider Instructions for Treatment Name Dates Details How to access health informa tion online Indication:BMI 30.0-30.9,adult Start:27-Jun-2019 Instruction Type:Patient Education How to access health informa tion online - Detail Indication:BMI 30.0-30.9,adult Start:27-Jun-2019 Instruction Type:Patient Education Patient Instructions Indication:BMI 30.0-30.9,adult Start:27-Jun-2019 Instruction Type:Provider Instructions for Treatment Patient Instructions Indication:Rash Start:10-Jun-2019 Instruction Type:Provider Instructions for Treatment How to access health informa tion online Indication:Nonsmoker Start:13-May-2019 Instruction Type:Patient Education How to access health informa tion online - Detail Indication:Nonsmoker Start:13-May-2019 Instruction Type:Patient Education Patient Instructions Indication:Nonsmoker Start:13-May-2019 Instruction Type:Provider Instructions for Treatment Patient Instructions Indication:Hypothyroid Start:27-Apr-2019 Instruction Type:Provider Instructions for Treatment How to access health informa tion online Indication:Hypothyroid Start:27-Apr-2019 Instruction Type:Patient Education How to access health informa tion online - Detail Indication:Hypothyroid Start:27-Apr-2019 Instruction Type:Patient Education How to access health informa tion online Indication:Non-smoker Start:27-May-2016 Instruction Type:Patient Education How to access health informa tion online - Detail Indication:Non-smoker Start:27-May-2016 Instruction Type:Patient Education Patient Instructions Indication:Non-smoker Start:27-May-2016 Instruction Type:Provider Instructions for Treatment How to access health informa tion online Indication:Acquired hypothyroidism Start:10-Dec-2015 Instruction Type:Patient Education How to access health informa tion online - Detail Indication:Acquired hypothyroidism Start:10-Dec-2015 Instruction Type:Patient Education Patient Instructions Indication:Acquired hypothyroidism Start:10-Dec-2015 Instruction Type:Provider Instructions for Treatment How to access health informa tion online Indication:Acquired hypothyroidism Start:25-Jul-2015 Instruction Type:Patient Education How to access health informa tion online - Detail Indication:Acquired hypothyroidism Start:25-Jul-2015 Instruction Type:Patient Education Patient Instructions Indication:Acquired hypothyroidism Start:25-Jul-2015 Instruction Type:Provider Instructions for Treatment How to access health informa tion online Indication:Neoplasm of uncertain behavior of skin Start:06-Mar-2015 Instruction Type:Patient Education How to access health informa tion online - Detail Indication:Neoplasm of uncertain behavior of skin Start:06-Mar-2015 Instruction Type:Patient Education Patient Instructions Indication:Neoplasm of uncertain behavior of skin Start:06-Mar-2015 Instruction Type:Provider Instructions for Treatment How to access health informa tion online Indication:Acquired hypothyroidism Start:02-Mar-2015 Instruction Type:Patient Education How to access health informa tion online - Detail Indication:Acquired hypothyroidism Start:02-Mar-2015 Instruction Type:Patient Education Patient Instructions Indication:Acquired hypothyroidism Start:02-Mar-2015 Instruction Type:Provider Instructions for Treatment Patient Instructions Indication:Acquired hypothyroidism Start:21-Nov-2014 Instruction Type:Provider Instructions for Treatment Patient Instructions Indication:Dysthymic Start:26-Apr-2014 Instruction Type:Provider Instructions for Treatment Patient Instructions Indication:Intractable migraine without status migrainosus, unspecified migraine type Start:06-Feb-2014 Instruction Type:Provider Instructions for Treatment How to access health informa tion online Indication:Intractable migraine without status migrainosus, unspecified migraine type Start:06-Feb-2014 Instruction Type:Patient Education How to access health informa tion online - Detail Indication:Intractable migraine without status migrainosus, unspecified migraine type Start:06-Feb-2014 Instruction Type:Patient Education Patient Instructions Indication:Migraine Start:17-Jan-2014 Instruction Type:Provider Instructions for Treatment Patient Instructions Indication:Encounter for pre-employment examination Start:21-Dec-2013 Instruction Type:Provider Instructions for Treatment Patient Instructions Indication:Cervical Radiculopathy Start:26-Apr-2013 Instruction Type:Provider Instructions for Treatment Patient Instructions Indication:Constipation Start:16-Jun-2012 Instruction Type:Provider Instructions for Treatment Patient Instructions Indication:Acquired hypothyroidism Start:14-Apr-2012 Instruction Type:Provider Instructions for Treatment Name Dates Details How to Access Health Informa tion Online using Patient Portal and [employer] Apps Indication:Nonsmoker Start:17-Jul-2020 Instruction Type:Patient Education Patient Instructions Indication:Nonsmoker Start:17-Jul-2020 Instruction Type:Provider Instructions for Treatment How to access health informa tion online Indication:BMI 30.0-30.9,adult Start:27-Jun-2019 Instruction Type:Patient Education How to access health informa tion online - Detail Indication:BMI 30.0-30.9,adult Start:27-Jun-2019 Instruction Type:Patient Education Patient Instructions Indication:BMI 30.0-30.9,adult Start:27-Jun-2019 Instruction Type:Provider Instructions for Treatment Patient Instructions Indication:Rash Start:10-Jun-2019 Instruction Type:Provider Instructions for Treatment How to access health informa tion online Indication:Nonsmoker Start:13-May-2019 Instruction Type:Patient Education How to access health informa tion online - Detail Indication:Nonsmoker Start:13-May-2019 Instruction Type:Patient Education Patient Instructions Indication:Nonsmoker Start:13-May-2019 Instruction Type:Provider Instructions for Treatment Patient Instructions Indication:Hypothyroid Start:27-Apr-2019 Instruction Type:Provider Instructions for Treatment How to access health informa tion online Indication:Hypothyroid Start:27-Apr-2019 Instruction Type:Patient Education How to access health informa tion online - Detail Indication:Hypothyroid Start:27-Apr-2019 Instruction Type:Patient Education How to access health informa tion online Indication:Non-smoker Start:27-May-2016 Instruction Type:Patient Education How to access health informa tion online - Detail Indication:Non-smoker Start:27-May-2016 Instruction Type:Patient Education Patient Instructions Indication:Non-smoker Start:27-May-2016 Instruction Type:Provider Instructions for Treatment How to access health informa tion online Indication:Acquired hypothyroidism Start:10-Dec-2015 Instruction Type:Patient Education How to access health informa tion online - Detail Indication:Acquired hypothyroidism Start:10-Dec-2015 Instruction Type:Patient Education Patient Instructions Indication:Acquired hypothyroidism Start:10-Dec-2015 Instruction Type:Provider Instructions for Treatment How to access health informa tion online Indication:Acquired hypothyroidism Start:25-Jul-2015 Instruction Type:Patient Education How to access health informa tion online - Detail Indication:Acquired hypothyroidism Start:25-Jul-2015 Instruction Type:Patient Education Patient Instructions Indication:Acquired hypothyroidism Start:25-Jul-2015 Instruction Type:Provider Instructions for Treatment How to access health informa tion online Indication:Neoplasm of uncertain behavior of skin Start:06-Mar-2015 Instruction Type:Patient Education How to access health informa tion online - Detail Indication:Neoplasm of uncertain behavior of skin Start:06-Mar-2015 Instruction Type:Patient Education Patient Instructions Indication:Neoplasm of uncertain behavior of skin Start:06-Mar-2015 Instruction Type:Provider Instructions for Treatment How to access health informa tion online Indication:Acquired hypothyroidism Start:02-Mar-2015 Instruction Type:Patient Education How to access health informa tion online - Detail Indication:Acquired hypothyroidism Start:02-Mar-2015 Instruction Type:Patient Education Patient Instructions Indication:Acquired hypothyroidism Start:02-Mar-2015 Instruction Type:Provider Instructions for Treatment Patient Instructions Indication:Acquired hypothyroidism Start:21-Nov-2014 Instruction Type:Provider Instructions for Treatment Patient Instructions Indication:Dysthymic Start:26-Apr-2014 Instruction Type:Provider Instructions for Treatment Patient Instructions Indication:Intractable migraine without status migrainosus, unspecified migraine type Start:06-Feb-2014 Instruction Type:Provider Instructions for Treatment How to access health informa tion online Indication:Intractable migraine without status migrainosus, unspecified migraine type Start:06-Feb-2014 Instruction Type:Patient Education How to access health informa tion online - Detail Indication:Intractable migraine without status migrainosus, unspecified migraine type Start:06-Feb-2014 Instruction Type:Patient Education Patient Instructions Indication:Migraine Start:17-Jan-2014 Instruction Type:Provider Instructions for Treatment Patient Instructions Indication:Encounter for pre-employment examination Start:21-Dec-2013 Instruction Type:Provider Instructions for Treatment Patient Instructions Indication:Cervical Radiculopathy Start:26-Apr-2013 Instruction Type:Provider Instructions for Treatment Patient Instructions Indication:Constipation Start:16-Jun-2012 Instruction Type:Provider Instructions for Treatment Patient Instructions Indication:Acquired hypothyroidism Start:14-Apr-2012 Instruction Type:Provider Instructions for Treatment Name Dates Details Patient Instructions Indication:Hypothyroid Start:27-Apr-2019 Instruction Type:Provider Instructions for Treatment How to access health informa tion online Indication:Hypothyroid Start:27-Apr-2019 Instruction Type:Patient Education How to access health informa tion online - Detail Indication:Hypothyroid Start:27-Apr-2019 Instruction Type:Patient Education How to access health informa tion online Indication:Non-smoker Start:27-May-2016 Instruction Type:Patient Education How to access health informa tion online - Detail Indication:Non-smoker Start:27-May-2016 Instruction Type:Patient Education Patient Instructions Indication:Non-smoker Start:27-May-2016 Instruction Type:Provider Instructions for Treatment How to access health informa tion online Indication:Acquired hypothyroidism Start:10-Dec-2015 Instruction Type:Patient Education How to access health informa tion online - Detail Indication:Acquired hypothyroidism Start:10-Dec-2015 Instruction Type:Patient Education Patient Instructions Indication:Acquired hypothyroidism Start:10-Dec-2015 Instruction Type:Provider Instructions for Treatment How to access health informa tion online Indication:Acquired hypothyroidism Start:25-Jul-2015 Instruction Type:Patient Education How to access health informa tion online - Detail Indication:Acquired hypothyroidism Start:25-Jul-2015 Instruction Type:Patient Education Patient Instructions Indication:Acquired hypothyroidism Start:25-Jul-2015 Instruction Type:Provider Instructions for Treatment How to access health informa tion online Indication:Neoplasm of uncertain behavior of skin Start:06-Mar-2015 Instruction Type:Patient Education How to access health informa tion online - Detail Indication:Neoplasm of uncertain behavior of skin Start:06-Mar-2015 Instruction Type:Patient Education Patient Instructions Indication:Neoplasm of uncertain behavior of skin Start:06-Mar-2015 Instruction Type:Provider Instructions for Treatment How to access health informa tion online Indication:Acquired hypothyroidism Start:02-Mar-2015 Instruction Type:Patient Education How to access health informa tion online - Detail Indication:Acquired hypothyroidism Start:02-Mar-2015 Instruction Type:Patient Education Patient Instructions Indication:Acquired hypothyroidism Start:02-Mar-2015 Instruction Type:Provider Instructions for Treatment Patient Instructions Indication:Acquired hypothyroidism Start:21-Nov-2014 Instruction Type:Provider Instructions for Treatment Patient Instructions Indication:Dysthymic Start:26-Apr-2014 Instruction Type:Provider Instructions for Treatment Patient Instructions Indication:Intractable migraine without status migrainosus, unspecified migraine type Start:06-Feb-2014 Instruction Type:Provider Instructions for Treatment How to access health informa tion online Indication:Intractable migraine without status migrainosus, unspecified migraine type Start:06-Feb-2014 Instruction Type:Patient Education How to access health informa tion online - Detail Indication:Intractable migraine without status migrainosus, unspecified migraine type Start:06-Feb-2014 Instruction Type:Patient Education Patient Instructions Indication:Migraine Start:17-Jan-2014 Instruction Type:Provider Instructions for Treatment Patient Instructions Indication:Encounter for pre-employment examination Start:21-Dec-2013 Instruction Type:Provider Instructions for Treatment Patient Instructions Indication:Cervical Radiculopathy Start:26-Apr-2013 Instruction Type:Provider Instructions for Treatment Patient Instructions Indication:Constipation Start:16-Jun-2012 Instruction Type:Provider Instructions for Treatment Patient Instructions Indication:Acquired hypothyroidism Start:14-Apr-2012 Instruction Type:Provider Instructions for Treatment Name Dates Details How to Access Health Informa tion Online using Patient Portal and [employer] Apps Indication:Nonsmoker Start:02-Aug-2020 Instruction Type:Patient Education Patient Instructions Indication:Nonsmoker Start:02-Aug-2020 Instruction Type:Provider Instructions for Treatment How to Access Health Informa tion Online using Patient Portal and [employer] Indication:Nonsmoker Start:17-Jul-2020 Instruction Type:Patient Education Patient Instructions Indication:Nonsmoker Start:17-Jul-2020 Instruction Type:Provider Instructions for Treatment How to access health informa tion online Indication:BMI 30.0-30.9,adult Start:27-Jun-2019 Instruction Type:Patient Education How to access health informa tion online - Detail Indication:BMI 30.0-30.9,adult Start:27-Jun-2019 Instruction Type:Patient Education Patient Instructions Indication:BMI 30.0-30.9,adult Start:27-Jun-2019 Instruction Type:Provider Instructions for Treatment Patient Instructions Indication:Rash Start:10-Jun-2019 Instruction Type:Provider Instructions for Treatment How to access health informa tion online Indication:Nonsmoker Start:13-May-2019 Instruction Type:Patient Education How to access health informa tion online - Detail Indication:Nonsmoker Start:13-May-2019 Instruction Type:Patient Education Patient Instructions Indication:Nonsmoker Start:13-May-2019 Instruction Type:Provider Instructions for Treatment Patient Instructions Indication:Hypothyroid Start:27-Apr-2019 Instruction Type:Provider Instructions for Treatment How to access health informa tion online Indication:Hypothyroid Start:27-Apr-2019 Instruction Type:Patient Education How to access health informa tion online - Detail Indication:Hypothyroid Start:27-Apr-2019 Instruction Type:Patient Education How to access health informa tion online Indication:Non-smoker Start:27-May-2016 Instruction Type:Patient Education How to access health informa tion online - Detail Indication:Non-smoker Start:27-May-2016 Instruction Type:Patient Education Patient Instructions Indication:Non-smoker Start:27-May-2016 Instruction Type:Provider Instructions for Treatment How to access health informa tion online Indication:Acquired hypothyroidism Start:10-Dec-2015 Instruction Type:Patient Education How to access health informa tion online - Detail Indication:Acquired hypothyroidism Start:10-Dec-2015 Instruction Type:Patient Education Patient Instructions Indication:Acquired hypothyroidism Start:10-Dec-2015 Instruction Type:Provider Instructions for Treatment How to access health informa tion online Indication:Acquired hypothyroidism Start:25-Jul-2015 Instruction Type:Patient Education How to access health informa tion online - Detail Indication:Acquired hypothyroidism Start:25-Jul-2015 Instruction Type:Patient Education Patient Instructions Indication:Acquired hypothyroidism Start:25-Jul-2015 Instruction Type:Provider Instructions for Treatment How to access health informa tion online Indication:Neoplasm of uncertain behavior of skin Start:06-Mar-2015 Instruction Type:Patient Education How to access health informa tion online - Detail Indication:Neoplasm of uncertain behavior of skin Start:06-Mar-2015 Instruction Type:Patient Education Patient Instructions Indication:Neoplasm of uncertain behavior of skin Start:06-Mar-2015 Instruction Type:Provider Instructions for Treatment How to access health informa tion online Indication:Acquired hypothyroidism Start:02-Mar-2015 Instruction Type:Patient Education How to access health informa tion online - Detail Indication:Acquired hypothyroidism Start:02-Mar-2015 Instruction Type:Patient Education Patient Instructions Indication:Acquired hypothyroidism Start:02-Mar-2015 Instruction Type:Provider Instructions for Treatment Patient Instructions Indication:Acquired hypothyroidism Start:21-Nov-2014 Instruction Type:Provider Instructions for Treatment Patient Instructions Indication:Dysthymic Start:26-Apr-2014 Instruction Type:Provider Instructions for Treatment Patient Instructions Indication:Intractable migraine without status migrainosus, unspecified migraine type Start:06-Feb-2014 Instruction Type:Provider Instructions for Treatment How to access health informa tion online Indication:Intractable migraine without status migrainosus, unspecified migraine type Start:06-Feb-2014 Instruction Type:Patient Education How to access health informa tion online - Detail Indication:Intractable migraine without status migrainosus, unspecified migraine type Start:06-Feb-2014 Instruction Type:Patient Education Patient Instructions Indication:Migraine Start:17-Jan-2014 Instruction Type:Provider Instructions for Treatment Patient Instructions Indication:Encounter for pre-employment examination Start:21-Dec-2013 Instruction Type:Provider Instructions for Treatment Patient Instructions Indication:Cervical Radiculopathy Start:26-Apr-2013 Instruction Type:Provider Instructions for Treatment Patient Instructions Indication:Constipation Start:16-Jun-2012 Instruction Type:Provider Instructions for Treatment Patient Instructions Indication:Acquired hypothyroidism Start:14-Apr-2012 Instruction Type:Provider Instructions for Treatment Name Dates Details How to Access Health Informa tion Online using Patient Portal and [employer] Apps Indication:Nonsmoker Start:17-Jul-2020 Instruction Type:Patient Education Patient Instructions Indication:Nonsmoker Start:17-Jul-2020 Instruction Type:Provider Instructions for Treatment How to access health informa tion online Indication:BMI 30.0-30.9,adult Start:27-Jun-2019 Instruction Type:Patient Education How to access health informa tion online - Detail Indication:BMI 30.0-30.9,adult Start:27-Jun-2019 Instruction Type:Patient Education Patient Instructions Indication:BMI 30.0-30.9,adult Start:27-Jun-2019 Instruction Type:Provider Instructions for Treatment Patient Instructions Indication:Rash Start:10-Jun-2019 Instruction Type:Provider Instructions for Treatment How to access health informa tion online Indication:Nonsmoker Start:13-May-2019 Instruction Type:Patient Education How to access health informa tion online - Detail Indication:Nonsmoker Start:13-May-2019 Instruction Type:Patient Education Patient Instructions Indication:Nonsmoker Start:13-May-2019 Instruction Type:Provider Instructions for Treatment Patient Instructions Indication:Hypothyroid Start:27-Apr-2019 Instruction Type:Provider Instructions for Treatment How to access health informa tion online Indication:Hypothyroid Start:27-Apr-2019 Instruction Type:Patient Education How to access health informa tion online - Detail Indication:Hypothyroid Start:27-Apr-2019 Instruction Type:Patient Education How to access health informa tion online Indication:Non-smoker Start:27-May-2016 Instruction Type:Patient Education How to access health informa tion online - Detail Indication:Non-smoker Start:27-May-2016 Instruction Type:Patient Education Patient Instructions Indication:Non-smoker Start:27-May-2016 Instruction Type:Provider Instructions for Treatment How to access health informa tion online Indication:Acquired hypothyroidism Start:10-Dec-2015 Instruction Type:Patient Education How to access health informa tion online - Detail Indication:Acquired hypothyroidism Start:10-Dec-2015 Instruction Type:Patient Education Patient Instructions Indication:Acquired hypothyroidism Start:10-Dec-2015 Instruction Type:Provider Instructions for Treatment How to access health informa tion online Indication:Acquired hypothyroidism Start:25-Jul-2015 Instruction Type:Patient Education How to access health informa tion online - Detail Indication:Acquired hypothyroidism Start:25-Jul-2015 Instruction Type:Patient Education Patient Instructions Indication:Acquired hypothyroidism Start:25-Jul-2015 Instruction Type:Provider Instructions for Treatment How to access health informa tion online Indication:Neoplasm of uncertain behavior of skin Start:06-Mar-2015 Instruction Type:Patient Education How to access health informa tion online - Detail Indication:Neoplasm of uncertain behavior of skin Start:06-Mar-2015 Instruction Type:Patient Education Patient Instructions Indication:Neoplasm of uncertain behavior of skin Start:06-Mar-2015 Instruction Type:Provider Instructions for Treatment How to access health informa tion online Indication:Acquired hypothyroidism Start:02-Mar-2015 Instruction Type:Patient Education How to access health informa tion online - Detail Indication:Acquired hypothyroidism Start:02-Mar-2015 Instruction Type:Patient Education Patient Instructions Indication:Acquired hypothyroidism Start:02-Mar-2015 Instruction Type:Provider Instructions for Treatment Patient Instructions Indication:Acquired hypothyroidism Start:21-Nov-2014 Instruction Type:Provider Instructions for Treatment Patient Instructions Indication:Dysthymic Start:26-Apr-2014 Instruction Type:Provider Instructions for Treatment Patient Instructions Indication:Intractable migraine without status migrainosus, unspecified migraine type Start:06-Feb-2014 Instruction Type:Provider Instructions for Treatment How to access health informa tion online Indication:Intractable migraine without status migrainosus, unspecified migraine type Start:06-Feb-2014 Instruction Type:Patient Education How to access health informa tion online - Detail Indication:Intractable migraine without status migrainosus, unspecified migraine type Start:06-Feb-2014 Instruction Type:Patient Education Patient Instructions Indication:Migraine Start:17-Jan-2014 Instruction Type:Provider Instructions for Treatment Patient Instructions Indication:Encounter for pre-employment examination Start:21-Dec-2013 Instruction Type:Provider Instructions for Treatment Patient Instructions Indication:Cervical Radiculopathy Start:26-Apr-2013 Instruction Type:Provider Instructions for Treatment Patient Instructions Indication:Constipation Start:16-Jun-2012 Instruction Type:Provider Instructions for Treatment Patient Instructions Indication:Acquired hypothyroidism Start:14-Apr-2012 Instruction Type:Provider Instructions for Treatment Name Dates Details How to Access Health Informa tion Online using Patient Portal and [employer] Apps Indication:Nonsmoker Start:17-Jul-2020 Instruction Type:Patient Education Patient Instructions Indication:Nonsmoker Start:17-Jul-2020 Instruction Type:Provider Instructions for Treatment How to access health informa tion online Indication:BMI 30.0-30.9,adult Start:27-Jun-2019 Instruction Type:Patient Education How to access health informa tion online - Detail Indication:BMI 30.0-30.9,adult Start:27-Jun-2019 Instruction Type:Patient Education Patient Instructions Indication:BMI 30.0-30.9,adult Start:27-Jun-2019 Instruction Type:Provider Instructions for Treatment Patient Instructions Indication:Rash Start:10-Jun-2019 Instruction Type:Provider Instructions for Treatment How to access health informa tion online Indication:Nonsmoker Start:13-May-2019 Instruction Type:Patient Education How to access health informa tion online - Detail Indication:Nonsmoker Start:13-May-2019 Instruction Type:Patient Education Patient Instructions Indication:Nonsmoker Start:13-May-2019 Instruction Type:Provider Instructions for Treatment Patient Instructions Indication:Hypothyroid Start:27-Apr-2019 Instruction Type:Provider Instructions for Treatment How to access health informa tion online Indication:Hypothyroid Start:27-Apr-2019 Instruction Type:Patient Education How to access health informa tion online - Detail Indication:Hypothyroid Start:27-Apr-2019 Instruction Type:Patient Education How to access health informa tion online Indication:Non-smoker Start:27-May-2016 Instruction Type:Patient Education How to access health informa tion online - Detail Indication:Non-smoker Start:27-May-2016 Instruction Type:Patient Education Patient Instructions Indication:Non-smoker Start:27-May-2016 Instruction Type:Provider Instructions for Treatment How to access health informa tion online Indication:Acquired hypothyroidism Start:10-Dec-2015 Instruction Type:Patient Education How to access health informa tion online - Detail Indication:Acquired hypothyroidism Start:10-Dec-2015 Instruction Type:Patient Education Patient Instructions Indication:Acquired hypothyroidism Start:10-Dec-2015 Instruction Type:Provider Instructions for Treatment How to access health informa tion online Indication:Acquired hypothyroidism Start:25-Jul-2015 Instruction Type:Patient Education How to access health informa tion online - Detail Indication:Acquired hypothyroidism Start:25-Jul-2015 Instruction Type:Patient Education Patient Instructions Indication:Acquired hypothyroidism Start:25-Jul-2015 Instruction Type:Provider Instructions for Treatment How to access health informa tion online Indication:Neoplasm of uncertain behavior of skin Start:06-Mar-2015 Instruction Type:Patient Education How to access health informa tion online - Detail Indication:Neoplasm of uncertain behavior of skin Start:06-Mar-2015 Instruction Type:Patient Education Patient Instructions Indication:Neoplasm of uncertain behavior of skin Start:06-Mar-2015 Instruction Type:Provider Instructions for Treatment How to access health informa tion online Indication:Acquired hypothyroidism Start:02-Mar-2015 Instruction Type:Patient Education How to access health informa tion online - Detail Indication:Acquired hypothyroidism Start:02-Mar-2015 Instruction Type:Patient Education Patient Instructions Indication:Acquired hypothyroidism Start:02-Mar-2015 Instruction Type:Provider Instructions for Treatment Patient Instructions Indication:Acquired hypothyroidism Start:21-Nov-2014 Instruction Type:Provider Instructions for Treatment Patient Instructions Indication:Dysthymic Start:26-Apr-2014 Instruction Type:Provider Instructions for Treatment Patient Instructions Indication:Intractable migraine without status migrainosus, unspecified migraine type Start:06-Feb-2014 Instruction Type:Provider Instructions for Treatment How to access health informa tion online Indication:Intractable migraine without status migrainosus, unspecified migraine type Start:06-Feb-2014 Instruction Type:Patient Education How to access health informa tion online - Detail Indication:Intractable migraine without status migrainosus, unspecified migraine type Start:06-Feb-2014 Instruction Type:Patient Education Patient Instructions Indication:Migraine Start:17-Jan-2014 Instruction Type:Provider Instructions for Treatment Patient Instructions Indication:Encounter for pre-employment examination Start:21-Dec-2013 Instruction Type:Provider Instructions for Treatment Patient Instructions Indication:Cervical Radiculopathy Start:26-Apr-2013 Instruction Type:Provider Instructions for Treatment Patient Instructions Indication:Constipation Start:16-Jun-2012 Instruction Type:Provider Instructions for Treatment Patient Instructions Indication:Acquired hypothyroidism Start:14-Apr-2012 Instruction Type:Provider Instructions for Treatment Name Dates Details How to Access Health Informa tion Online using Patient Portal and [employer] Apps Indication:Nonsmoker Start:17-Jul-2020 Instruction Type:Patient Education Patient Instructions Indication:Nonsmoker Start:17-Jul-2020 Instruction Type:Provider Instructions for Treatment How to access health informa tion online Indication:BMI 30.0-30.9,adult Start:27-Jun-2019 Instruction Type:Patient Education How to access health informa tion online - Detail Indication:BMI 30.0-30.9,adult Start:27-Jun-2019 Instruction Type:Patient Education Patient Instructions Indication:BMI 30.0-30.9,adult Start:27-Jun-2019 Instruction Type:Provider Instructions for Treatment Patient Instructions Indication:Rash Start:10-Jun-2019 Instruction Type:Provider Instructions for Treatment How to access health informa tion online Indication:Nonsmoker Start:13-May-2019 Instruction Type:Patient Education How to access health informa tion online - Detail Indication:Nonsmoker Start:13-May-2019 Instruction Type:Patient Education Patient Instructions Indication:Nonsmoker Start:13-May-2019 Instruction Type:Provider Instructions for Treatment Patient Instructions Indication:Hypothyroid Start:27-Apr-2019 Instruction Type:Provider Instructions for Treatment How to access health informa tion online Indication:Hypothyroid Start:27-Apr-2019 Instruction Type:Patient Education How to access health informa tion online - Detail Indication:Hypothyroid Start:27-Apr-2019 Instruction Type:Patient Education How to access health informa tion online Indication:Non-smoker Start:27-May-2016 Instruction Type:Patient Education How to access health informa tion online - Detail Indication:Non-smoker Start:27-May-2016 Instruction Type:Patient Education Patient Instructions Indication:Non-smoker Start:27-May-2016 Instruction Type:Provider Instructions for Treatment How to access health informa tion online Indication:Acquired hypothyroidism Start:10-Dec-2015 Instruction Type:Patient Education How to access health informa tion online - Detail Indication:Acquired hypothyroidism Start:10-Dec-2015 Instruction Type:Patient Education Patient Instructions Indication:Acquired hypothyroidism Start:10-Dec-2015 Instruction Type:Provider Instructions for Treatment How to access health informa tion online Indication:Acquired hypothyroidism Start:25-Jul-2015 Instruction Type:Patient Education How to access health informa tion online - Detail Indication:Acquired hypothyroidism Start:25-Jul-2015 Instruction Type:Patient Education Patient Instructions Indication:Acquired hypothyroidism Start:25-Jul-2015 Instruction Type:Provider Instructions for Treatment How to access health informa tion online Indication:Neoplasm of uncertain behavior of skin Start:06-Mar-2015 Instruction Type:Patient Education How to access health informa tion online - Detail Indication:Neoplasm of uncertain behavior of skin Start:06-Mar-2015 Instruction Type:Patient Education Patient Instructions Indication:Neoplasm of uncertain behavior of skin Start:06-Mar-2015 Instruction Type:Provider Instructions for Treatment How to access health informa tion online Indication:Acquired hypothyroidism Start:02-Mar-2015 Instruction Type:Patient Education How to access health informa tion online - Detail Indication:Acquired hypothyroidism Start:02-Mar-2015 Instruction Type:Patient Education Patient Instructions Indication:Acquired hypothyroidism Start:02-Mar-2015 Instruction Type:Provider Instructions for Treatment Patient Instructions Indication:Acquired hypothyroidism Start:21-Nov-2014 Instruction Type:Provider Instructions for Treatment Patient Instructions Indication:Dysthymic Start:26-Apr-2014 Instruction Type:Provider Instructions for Treatment Patient Instructions Indication:Intractable migraine without status migrainosus, unspecified migraine type Start:06-Feb-2014 Instruction Type:Provider Instructions for Treatment How to access health informa tion online Indication:Intractable migraine without status migrainosus, unspecified migraine type Start:06-Feb-2014 Instruction Type:Patient Education How to access health informa tion online - Detail Indication:Intractable migraine without status migrainosus, unspecified migraine type Start:06-Feb-2014 Instruction Type:Patient Education Patient Instructions Indication:Migraine Start:17-Jan-2014 Instruction Type:Provider Instructions for Treatment Patient Instructions Indication:Encounter for pre-employment examination Start:21-Dec-2013 Instruction Type:Provider Instructions for Treatment Patient Instructions Indication:Cervical Radiculopathy Start:26-Apr-2013 Instruction Type:Provider Instructions for Treatment Patient Instructions Indication:Constipation Start:16-Jun-2012 Instruction Type:Provider Instructions for Treatment Patient Instructions Indication:Acquired hypothyroidism Start:14-Apr-2012 Instruction Type:Provider Instructions for Treatment Name Dates Details Patient Instructions Indication:Hypothyroid Start:27-Apr-2019 Instruction Type:Provider Instructions for Treatment How to access health informa tion online Indication:Hypothyroid Start:27-Apr-2019 Instruction Type:Patient Education How to access health informa tion online - Detail Indication:Hypothyroid Start:27-Apr-2019 Instruction Type:Patient Education How to access health informa tion online Indication:Non-smoker Start:27-May-2016 Instruction Type:Patient Education How to access health informa tion online - Detail Indication:Non-smoker Start:27-May-2016 Instruction Type:Patient Education Patient Instructions Indication:Non-smoker Start:27-May-2016 Instruction Type:Provider Instructions for Treatment How to access health informa tion online Indication:Acquired hypothyroidism Start:10-Dec-2015 Instruction Type:Patient Education How to access health informa tion online - Detail Indication:Acquired hypothyroidism Start:10-Dec-2015 Instruction Type:Patient Education Patient Instructions Indication:Acquired hypothyroidism Start:10-Dec-2015 Instruction Type:Provider Instructions for Treatment How to access health informa tion online Indication:Acquired hypothyroidism Start:25-Jul-2015 Instruction Type:Patient Education How to access health informa tion online - Detail Indication:Acquired hypothyroidism Start:25-Jul-2015 Instruction Type:Patient Education Patient Instructions Indication:Acquired hypothyroidism Start:25-Jul-2015 Instruction Type:Provider Instructions for Treatment How to access health informa tion online Indication:Neoplasm of uncertain behavior of skin Start:06-Mar-2015 Instruction Type:Patient Education How to access health informa tion online - Detail Indication:Neoplasm of uncertain behavior of skin Start:06-Mar-2015 Instruction Type:Patient Education Patient Instructions Indication:Neoplasm of uncertain behavior of skin Start:06-Mar-2015 Instruction Type:Provider Instructions for Treatment How to access health informa tion online Indication:Acquired hypothyroidism Start:02-Mar-2015 Instruction Type:Patient Education How to access health informa tion online - Detail Indication:Acquired hypothyroidism Start:02-Mar-2015 Instruction Type:Patient Education Patient Instructions Indication:Acquired hypothyroidism Start:02-Mar-2015 Instruction Type:Provider Instructions for Treatment Patient Instructions Indication:Acquired hypothyroidism Start:21-Nov-2014 Instruction Type:Provider Instructions for Treatment Patient Instructions Indication:Dysthymic Start:26-Apr-2014 Instruction Type:Provider Instructions for Treatment Patient Instructions Indication:Intractable migraine without status migrainosus, unspecified migraine type Start:06-Feb-2014 Instruction Type:Provider Instructions for Treatment How to access health informa tion online Indication:Intractable migraine without status migrainosus, unspecified migraine type Start:06-Feb-2014 Instruction Type:Patient Education How to access health informa tion online - Detail Indication:Intractable migraine without status migrainosus, unspecified migraine type Start:06-Feb-2014 Instruction Type:Patient Education Patient Instructions Indication:Migraine Start:17-Jan-2014 Instruction Type:Provider Instructions for Treatment Patient Instructions Indication:Encounter for pre-employment examination Start:21-Dec-2013 Instruction Type:Provider Instructions for Treatment Patient Instructions Indication:Cervical Radiculopathy Start:26-Apr-2013 Instruction Type:Provider Instructions for Treatment Patient Instructions Indication:Constipation Start:16-Jun-2012 Instruction Type:Provider Instructions for Treatment Patient Instructions Indication:Acquired hypothyroidism Start:14-Apr-2012 Instruction Type:Provider Instructions for Treatment Summary Purpose Advance Directives No Advanced Directives Records Found Name Dates Details Immunization Registry [place] - Effective on 10/01/2020. 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 Expiration date unspecified Effective:01-Oct-2020 Name Dates Details Immunization Registry [place] - Effective on 10/01/2020. Expiration date unspecified Effective:01-Oct-2020 Name Dates Details Immunization Registry [place] - Effective on 10/01/2020. Expiration date unspecified Effective:01-Oct-2020 Advance Directive Response Recorded Date/ Time Living Will No November 16, 2023 2 :06am Power of Toe Puncher No November 16, 2023 2:06am Advance Directive Response Recorded Date/ Time Do you have a Healthcare Power of Toe Puncher? 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 GC 3 M FU Family history of malignant neoplasm of breast CALI; LM 3/7 Reason for Visit Change in skin mole Chronic back pain Hypothyroidism Migraine CALI (obstructive sleep apnea) Obesity (BMI 30.0-34.9) Chief Complaint GC 3 M FU Family history of malignant neoplasm of breast CALI; LM 3/7 Reason for Visit CALI (obstructive sle ep apnea) Obesity (BMI 30.0-34.9) Chief Complaint GC 3 M FU Family history of malignant neoplasm of breast CALI; LM 3/7 LOW ENERGY LEVELS Reason for Visit CALI (obstructive sle ep apnea) Obesity (BMI 30.0-34.9) Fatigue CALI (obstructive sleep apnea) Hypothyroidism Chief Complaint LOW ENERGY LEVELS HURT LEG 2 m fu RT HIP PAIN Reason for Visit Fatigue CALI (obstructive sleep apnea) Hypothyroidism Right ankle pain Fall Abrasion of left knee Foot pain Left knee pain Hypothyroidism Chief Complaint HURT LEG 2 m fu RT HIP PAIN Reason for Visit Right ankle pain Fall Abrasion of left knee Foot pain Left knee pain Hypothyroidism Chief Complaint 6 M FU Reason for Visit Arthritis Fatigue Hypothyroidism CALI (obstructive sleep apnea) Chief Complaint 6 M FU EORDER- Right Hip pain Reason for Visit Arthritis Fatigue Hypothyroidism CALI (obstructive sleep apnea) Chief Complaint 6 M FU EORDER- Right Hip pain FAMILY HX OF BREAST CANCER Reason for Visit Arthritis Fatigue Hypothyroidism CALI (obstructive sleep apnea) Chief Complaint Pap supplies Weightloss/Med review FAMILY HISTORY OF MALIGNANT NEOPLASM OF DIGESTIVE Reason for Visit Obesity (BMI 30.0-34 .9) CALI (obstructive sleep apnea) Family history of pancreatic cancer Anxiety and depression Hypothyroidism Mitral valve disease Obesity (BMI 30-39.9) Chief Complaint Pap supplies Weightloss/Med review FAMILY HISTORY OF MALIGNANT NEOPLASM OF DIGESTIVE OBESITY 3 M FU Reason for Visit Obesity (BMI 30.0-34 .9) CALI (obstructive sleep apnea) Family history of pancreatic cancer Anxiety and depression Hypothyroidism Mitral valve disease Obesity (BMI 30-39.9) Change in skin mole Anxiety and depression Chronic back pain Obesity (BMI 30-39.9) Chief Complaint Pap supplies Weightloss/Med review FAMILY HISTORY OF MALIGNANT NEOPLASM OF DIGESTIVE OBESITY 3 M FU CERVICAL SPINE RM 3 Reason for Visit Obesity (BMI 30.0-34 .9) CALI (obstructive sleep apnea) Family history of pancreatic cancer Anxiety and depression Hypothyroidism Mitral valve disease Obesity (BMI 30-39.9) Change in skin mole Anxiety and depression Chronic back pain Obesity (BMI 30-39.9) Cervical kyphosis Spondylolisthesis, lumbar region Chief Complaint Weightloss/Med revie w FAMILY HISTORY OF MALIGNANT NEOPLASM OF DIGESTIVE OBESITY 3 M FU CERVICAL SPINE RM 3 CERVICAL KYPHOSIS RX HERE LUMBAR RAD BILATERAL HIPS Reason for Visit Family history of pa ncreatic cancer Anxiety and depression Hypothyroidism Mitral valve disease Obesity (BMI 30-39.9) Change in skin mole Anxiety and depression Chronic back pain Obesity (BMI 30-39.9) Cervical kyphosis Spondylolisthesis, lumbar region Cervical kyphosis Spondylolisthesis, lumbar region Tarlov cysts Chief Complaint OBESITY 3 M FU CERVICAL SPINE RM 3 CERVICAL KYPHOSIS RX HERE LUMBAR RAD BILATERAL HIPS chest pain Reason for Visit Change in skin mole Anxiety and depression Chronic back pain Obesity (BMI 30-39.9) Cervical kyphosis Spondylolisthesis, lumbar region Cervical kyphosis Spondylolisthesis, lumbar region Tarlov cysts Chief Complaint Admit Date CERVICAL SPINE October 13, 2024 8:0 4am Room 3 October 13, 2024 8:2 3am CERVICAL PAIN December 09, 2024 1:05p m CERVICAL SPINE December 13, 2024 3:02 pm Reason for Visit Admit Date Cervical radiculopathy October 13, 2024 8:04am Spondylolisthesis, cervical region October 13, 2024 8:04am Cervical myelopathy with cervical radicu lopathy December 13, 2024 3:02pm Spondylolisthesis, cervical region December 13, 2024 3:02pm Chief Complaint Admit Date CERVICAL PAIN December 09, 2024 1:05p m CERVICAL SPINE December 13, 2024 3:02 pm cervical spine February 21, 2025 7: 48am Reason for Visit Admit Date Cervical myelopathy with cervical radicu lopathy December 13, 2024 3:02pm Spondylolisthesis, cervical region December 13, 2024 3:02pm Cervical myelopathy with cervical radicu lopathy February 21, 2025 7:48am Spondylolisthesis, cervical region Augus t 2024 7:48am Obesity (BMI 30-39.9) February 21, 2025 7:48am Chief Complaint Admit Date CERVICAL PAIN December 09, 2024 1:05p m CERVICAL SPINE December 13, 2024 3:02 pm cervical spine February 21, 2025 7: 48am PREOP February 23, 2025 7: 03am Anterior Cervical Fusion C4-5 and C5-6 S eptember 2024 12:00pm Anterior Cervical Fusion C4-5 and C5-6 S eptember 2024 2:53pm Anterior Cervical Fusion C4-5 and C5-6 S eptember 2024 5:42pm Reason for Visit Admit Date Cervical myelopathy with cervical radicu lopathy December 13, 2024 3:02pm Spondylolisthesis, cervical region December 13, 2024 3:02pm Cervical myelopathy with cervical radicu lopathy February 21, 2025 7:48am Spondylolisthesis, cervical region Augus t 2024 7:48am Obesity (BMI 30-39.9) February 21, 2025 7:48am Hypothyroidism March 07, 2025 2:53pm Chief Complaint Admit Date CERVICAL PAIN December 09, 2024 1:05p m CERVICAL SPINE December 13, 2024 3:02 pm cervical spine February 21, 2025 7: 48am PREOP February 23, 2025 7: 03am Anterior Cervical Fusion C4-5 and C5-6 S eptember 2024 12:00pm Anterior Cervical Fusion C4-5 and C5-6 S eptember 2024 2:53pm Anterior Cervical Fusion C4-5 and C5-6 S eptember 2024 5:42pm Anterior Cervical Fusion C4-5 and C5-6 S eptember 2024 2:15pm cervical spine March 23, 2025 9:59am Room 5 March 23, 2025 10:10am Reason for Visit Admit Date Cervical myelopathy with cervical radicu lopathy December 13, 2024 3:02pm Spondylolisthesis, cervical region December 13, 2024 3:02pm Cervical myelopathy with cervical radicu lopathy February 21, 2025 7:48am Spondylolisthesis, cervical region Augus t 2024 7:48am Obesity (BMI 30-39.9) February 21, 2025 7:48am Cervical myelopathy with cervical radicu lopathy March 07, 2025 2:53pm Status [facility] 2024 2:53pm Hypothyroidism March 07, 2025 2:53pm Chief Complaint Admit Date cervical spine February 21, 2025 7: 48am PREOP February 23, 2025 7: 03am Anterior Cervical Fusion C4-5 and C5-6 S epteer 2024 12:00pm Anterior Cervical Fusion C4-5 and C5-6 S eptember 2024 2:53pm Anterior Cervical Fusion C4-5 and C5-6 S eptember 2024 5:42pm Anterior Cervical Fusion C4-5 and C5-6 S eptember 2024 2:15pm cervical spine March 23, 2025 9:59am Room 5 March 23, 2025 10:10am cervical spine April 18, 2025 9 :45am Room 8 April 18, 2025 9 :57am CERVICAL FUSION RX HERE April 27 9:30am Reason for Visit Admit Date Cervical myelopathy with cervical radicu lopathy February 21, 2025 7:48am Spondylolisthesis, cervical region Augus t 2024 7:48am Obesity (BMI 30-39.9) February 21, 2025 7:48am Cervical myelopathy with cervical radicu lopathy March 07, 2025 2:53pm Status post [facility] 2024 2:53pm Hypothyroidism March 07, 2025 2:53pm Status post cervical spinal fusion Septe [facility] 2024 9:59am Status post cervical spinal fusion Octob er 2024 9:45am Additional Source Comments INFORMATION SOURCE (unrecogn ized section and content) DATE CREATED AUTHOR 10/17/2020 [facility] ([place]) DATE CREATED AUTHOR AUTHOR'S ORGANIZ ATION 05/18/2025 [facility] Reason for Visit (unrecogniz ed section and content) Status Reason Specialty Diagnoses / Procedures Referred By Contact Referred To Contact [facility] Required Lab Diagnoses Family history of breast cancer Family history of colon cancer Family history of pancreatic cancer Procedures Genetic Sendout: CancerNext Panel Zackary De Los Santos MD [address] [place] [address], [address] [place] [address] Goals (unrecognized section and content) Goals may be documented in a n alternate sectionGoals may be documented in an alternate sectionGoals may be documented in an alternate sectionGoals may be documented in an alternate sectionGoals may be documented in an alternate sectionGoals may be documented in an alternate sectionGoals may be documented in an alternate sectionGoals may be documented in an alternate sectionGoals may be documented in an alternate sectionGoals may be documented in an alternate sectionGoals may be documented in an alternate sectionGoals may be documented in an alternate sectionGoals may be documented in an alternate sectionGoals may be documented in an alternate sectionGoals may be documented in an alternate sectionGoals may be documented in an alternate sectionGoals may be documented in an alternate sectionGoals may be documented in an alternate sectionGoals may be documented in an alternate sectionGoals may be documented in an alternate sectionGoals may be documented in an alternate section Care Teams (unrecognized sec tion and content) Team Status: Active Member Role Status Dates Dr. Marcello Mauro MD Family Provider Active Dr. Oleksandr Holbrook MD Primary Care Provider Active Team Status: Inactive Member Role Status Dates Dr. Oleksandr Holbrook MD Primary Care Provider Active Kermit Davis GROUNDSKEEPING MAINTENANCE WORKER, GROUNDSKEEPING MAINTENANCE WORKER-C Attending Provider, Referring Prov ider Active Team Status: Inactive Member Role Status Dates Dr. Oleksandr Holbrook MD Primary Care Sahara springer, Attending Provider, Referring Provider Active Team Status: Inactive Member Role Status Dates Dr. Oleksandr Holbrook MD Primary Care Provider, Atten ding Provider Active Team Status: Inactive Member Role Status Dates Dr. Oleksandr Holbrook MD Primary Care Provider Active Dr. Camryn Clifton MD Attending Provider, Referring Pr ovider Active Team Status: Inactive Member Role Status Dates Dr. Oleksandr Holbrook MD Referring Provider Active Joceline Cullen GROUNDSKEEPING MAINTENANCE WORKER, [employer] WORKER-C Attending Provider Active Team Status: Active Member Role Status Dates Dr. Oleksandr Holbrook MD Primary Care Provider Active Self Referred Attending Provider, Referring Provider A ctive Team Status: Active Member Role Status Dates Dr. Oleksandr Holbrook MD Primary Care P rovider, Attending Provider, Referring Provider Active Team Status: Inactive Member Role Status Dates Dr. Oleksandr Holbrook MD Primary Care Provider, Refer ring Provider Active Dr. Marcos Monroy MD Attending Provider Active Team Status: Inactive Member Role Status Dates Dr. Oleksandr Holbrook MD Primary Care Provider Active Dr. Yovani Doyle MD Attending Provider Active Team Status: Inactive Member Role Status Dates Dr. Oleksandr Holbrook MD Primary Care Provider Active Dr. Marcos Monroy MD Attending Provider, Referring Pr ovider Active Team Status: Active Member Role Status Dates Dr. Oleksandr Holbrook MD Primary Care Provider Active Dr. Marcos Monroy MD Attending Provider, Referring Pr ovider Active Team Status: Inactive Member Role Status Dates Dr. Oleksandr Holbrook MD Primary Care Provider Active Dr. Marcello Morejon DO Emergency Provider Active Team Status: Active Member Role Status Dates Dr. Oleksandr Holbrook MD Primary Care Provider Active Team Status: Inactive Member Role Status Dates Dr. Oleksandr Holbrook MD Primary Care Provider Active Start: October 13, 2024 End: October 13, 2024 Dr. Oleksandr Holbrook MD Referring Provider Active Start: October 13, 2024 End: October 13, 2024 JESUSITA Palacios Attending Provider Active Star t: October 13, 2024 End: October 13, 2024 Team Status: Inactive Member Role Status Dates Dr. Oleksandr Holbrook MD Primary Care Provider Active Start: October 13, 2024 End: October 13, 2024 Dr. Yovani Doyle MD Attending Provider Active S tart: October 13, 2024 End: October 13, 2024 Team Status: Active Member Role Status Dates Dr. Oleksandr Holbrook MD Primary Care Provider Active Start: December 09, 2024 JESUSITA Palacios Attending Provider Active Star t: December 09, 2024 Elba Zapata , PA Referring Provider Active Star t: December 09, 2024 Team Status: Inactive Member Role Status Dates Dr. Oleksandr Holbrook MD Primary Care Provider Active Start: December 13, 2024 End: December 13, 2024 Dr. Oleksandr Holbrook MD Referring Provider Active Start: December 13, 2024 End: December 13, 2024 Elba Zapata , PA Attending Provider Active Star t: December 13, 2024 End: December 13, 2024 Team Status: Inactive Member Role Status Dates Dr. Oleksandr Holbrook MD Primary Care Provider Active Start: December 09, 2024 End: December 09, 2024 Elba Zapata PA Attending Provider Active Star t: December 09, 2024 End: December 09, 2024 Elba Zapata , PA Referring Provider Active Star t: December 09, 2024 End: December 09, 2024 Team Status: Active Member Role/Relationship Status Dates BAY Bustillo Primary Care Provider Active Team Status: Inactive Member Role/Relationship Status Dates Dr. Oleksandr Holbrook MD Primary Care Provider Active Start: December 09, 2024 End: December 09, 2024 Elba Zapata , PA Attending Provider Active Star t: December 09, 2024 End: December 09, 2024 Elba Zapata , PA Referring Provider Active Star t: December 09, 2024 End: December 09, 2024 Team Status: Inactive Member Role/Relationship Status Dates Dr. Oleksandr Holbrook MD Primary Care Provider Active Start: December 13, 2024 End: December 13, 2024 Dr. Oleksandr Holbrook MD Referring Provider Active Start: December 13, 2024 End: December 13, 2024 Elba Zapata PA Attending Provider Active Star t: December 13, 2024 End: December 13, 2024 Team Status: Inactive Member Role/Relationship Status Dates Dr. Oleksandr Holbrook MD Referring Provider Active Start: February 21, 2025 End: February 21, 2025 Dr. Marcos Monroy MD Attending Provider Active Start: February 21, 2025 End: February 21, 2025 BAY Bustillo Primary Care Provider Active Start: February 21, 2025 End: February 21, 2025 Team Status: Active Member Role/Relationship Status Dates Heidy Hernandez [employer]TE[employer] WORKER-C Primary Care Provider Active Start: February 23, 2025 Dr. Xiomara Flowers MD Attending Provider Activ e Start: February 23, 2025 Dr. Marcos Monroy MD Referring Provider Active Start: February 23, 2025 Team Status: Active Member Role/Relationship Status Dates Dr. Marcos Monroy MD Attending Provider Active Start: March 07, 2025 Dr. Marcos Monroy MD Referring Provider Active Start: March 07, 2025 Dr. Marcos Monroy MD Other Provider Active Star t: March 07, 2025 Heidy Hernandez [employer]TE[employer] WORKER-C Primary Care Provider Active Start: March 07, 2025 Team Status: Inactive Member Role/Relationship Status Dates Dr. Marcos Monroy MD Admit Provider Active Star t: March 07, 2025 End: March 08, 2025 Dr. Marcos Monroy MD Attending Provider Active Start: March 07, 2025 End: March 08, 2025 Dr. Marcos Monroy MD Referring Provider Active Start: March 07, 2025 End: March 08, 2025 Heidy Hernandez [employer]TE[employer] WORKER-C Primary Care Provider Active Start: March 07, 2025 End: March 08, 2025 Dr. Zenaida Reynoso MD Other Provider Active St art: March 07, 2025 End: March 08, 2025 Team Status: Active Member Role/Relationship Status Dates Dr. Marcos Monroy MD Admit Provider Active Star t: March 07, 2025 Dr. Marcos Monroy MD Referring Provider Active Start: March 07, 2025 Dr. Marcos Monroy MD Other Provider Active Star t: March 07, 2025 Heidy Hernandez [employer] MA[employer]TENAN[employer] WORKER-C Primary Care Provider Active Start: March 07, 2025 Dr. Estephania Castano MD Attending Provider Active Start: March 07, 2025 Dr. Estephania Castano MD Other Provider Active Star t: March 07, 2025 Team Status: Active Member Role/Relationship Status Dates Heidy Hernandez [employer] MAINTENANCE WORKER-C Primary care physician Active Team Status: Inactive Member Role/Relationship Status Dates Dr. Oleksandr Holbrook MD Primary care physician Activ e Start: December 09, 2024 End: December 09, 2024 JESUSITA Palacios Attending physician Active Sta rt: December 09, 2024 End: December 09, 2024 JESUSITA Palacios Referring Provider Active Star t: December 09, 2024 End: December 09, 2024 Team Status: Inactive Member Role/Relationship Status Dates Dr. Oleksandr Holbrook MD Primary care physician Activ e Start: December 13, 2024 End: December 13, 2024 Dr. Oleksandr Holbrook MD Referring Provider Active Start: December 13, 2024 End: December 13, 2024 JESUSITA Palacios Attending physician Active Sta rt: December 13, 2024 End: December 13, 2024 Team Status: Inactive Member Role/Relationship Status Dates Dr. Oleksandr Holbrook MD Referring Provider Active Start: February 21, 2025 End: February 21, 2025 Dr. Marcos Monroy MD Attending physician Active Start: February 21, 2025 End: February 21, 2025 BAY Bustillo Primary care physician Active Start: February 21, 2025 End: February 21, 2025 Team Status: Active Member Role/Relationship Status Dates DELFINO BustilloC Primary care physician Active Start: February 23, 2025 Dr. Xiomara Flowers MD Attending physician Acti ve Start: February 23, 2025 Dr. Marcos Monroy MD Referring Provider Active Start: February 23, 2025 Team Status: Active Member Role/Relationship Status Dates Dr. Marcos Monroy MD Attending physician Active Start: March 07, 2025 Dr. Marcos Monroy MD Referring Provider Active Start: March 07, 2025 Dr. Marcos Monroy MD Nurse Practitioner Active Start: March 07, 2025 BAY Bustillo Primary care physician Active Start: March 07, 2025 Team Status: Inactive Member Role/Relationship Status Dates Dr. Marcos Monroy MD Admitting physician Active Start: March 07, 2025 End: March 08, 2025 Dr. Marcos Monroy MD Attending physician Active Start: March 07, 2025 End: March 08, 2025 Dr. Marcos Monroy MD Referring Provider Active Start: March 07, 2025 End: March 08, 2025 BAY Bustillo Primary care physician Active Start: March 07, 2025 End: March 08, 2025 Dr. Zenaida Reynoso MD Nurse Practitioner Active Start: March 07, 2025 End: March 08, 2025 Team Status: Active Member Role/Relationship Status Dates Dr. Marcos Monroy MD Admitting physician Active Start: March 07, 2025 Dr. Marcos Monroy MD Referring Provider Active Start: March 07, 2025 Dr. Marcos Monroy MD Nurse Practitioner Active Start: March 07, 2025 Heidy Hernandez [employer] MAINTENANCE WORKER-C Primary care physician Active Start: March 07, 2025 Dr. Estephania Castano MD Attending physician Active Start: March 07, 2025 Dr. Estephania Castano MD Nurse Practitioner Active Start: March 07, 2025 Team Status: Active Member Role/Relationship Status Dates Dr. Marcos Monroy MD Admitting physician Active Start: March 08, 2025 Dr. Marcos Monroy MD Nurse Practitioner Active Start: March 08, 2025 Heidy Hernandez [employer] MAINTENANCE WORKER-C Primary care physician Active Start: March 08, 2025 Dr. Zenaida Reynoso MD Attending physician Active Start: March 08, 2025 Dr. Zenaida Reynoso MD Nurse Practitioner Active Start: March 08, 2025 Team Status: Active Member Role/Relationship Status Dates Dr. Oleksandr Holbrook MD Referring Provider Active Start: March 23, 2025 JESUSITA Palacios Attending physician Active Sta rt: March 23, 2025 Heidy Hernandez [employer] MAINTENANCE WORKER-C Primary care physician Active Start: March 23, 2025 Team Status: Inactive Member Role/Relationship Status Dates Heidy Hernandez NP-C Primary care physician Active Start: March 23, 2025 End: March 23, 2025 Dr. Yovani Doyle MD Attending physician Active Start: March 23, 2025 End: March 23, 2025 Team Status: Inactive Member Role/Relationship Status Dates Dr. Oleksandr Holbrook MD Referring Provider Active Start: March 23, 2025 End: March 23, 2025 JESUSITA Palacios Attending physician Active Sta rt: March 23, 2025 End: March 23, 2025 Heidy Hernandez NP-C Primary care physician Active Start: March 23, 2025 End: March 23, 2025 Team Status: Inactive Member Role/Relationship Status Dates Dr. Oleksandr Holbrook MD Referring Provider Active Start: February 21, 2025 End: February 21, 2025 Dr. Marcos Monroy MD Attending physician Active Start: February 21, 2025 End: February 21, 2025 Heidy Hernandez NP-C Primary care physician Active Start: February 21, 2025 End: February 21, 2025 Team Status: Active Member Role/Relationship Status Dates Heidy Hernandez NP-C Primary care physician Active Start: February 23, 2025 Dr. Xiomara Flowers MD Attending physician Acti ve Start: February 23, 2025 Dr. Marcos Monroy MD Referring Provider Active Start: February 23, 2025 Team Status: Active Member Role/Relationship Status Dates Dr. Marcos Monroy MD Attending physician Active Start: March 07, 2025 Dr. Marcos Monroy MD Referring Provider Active Start: March 07, 2025 Dr. Marcos Monroy MD Nurse Practitioner Active Start: March 07, 2025 Heidy Hernandez NP-C Primary care physician Active Start: March 07, 2025 Team Status: Inactive Member Role/Relationship Status Dates Dr. Marcos Monroy MD Admitting physician Active Start: March 07, 2025 End: March 08, 2025 Dr. Marcos Monroy MD Attending physician Active Start: March 07, 2025 End: March 08, 2025 Dr. Marcos Monroy MD Referring Provider Active Start: March 07, 2025 End: March 08, 2025 Heidy Hernandez NP-C Primary care physician Active Start: March 07, 2025 End: March 08, 2025 Dr. Zenaida Reynoso MD Nurse Practitioner Active Start: March 07, 2025 End: March 08, 2025 Team Status: Active Member Role/Relationship Status Dates Dr. Marcos Monroy MD Admitting physician Active Start: March 07, 2025 Dr. Marcos Monroy MD Referring Provider Active Start: March 07, 2025 Dr. Marcos Monroy MD Nurse Practitioner Active Start: March 07, 2025 Heidy Hernandez NP-C Primary care physician Active Start: March 07, 2025 Dr. Estephania Castano MD Attending physician Active Start: March 07, 2025 Dr. Estephania Castano MD Nurse Practitioner Active Start: March 07, 2025 Team Status: Active Member Role/Relationship Status Dates Dr. Marcos Monroy MD Admitting physician Active Start: March 08, 2025 Dr. Marcos Monroy MD Nurse Practitioner Active Start: March 08, 2025 Heidy Hernandez NP-C Primary care physician Active Start: March 08, 2025 Dr. Zenaida Reynoso MD Attending physician Active Start: March 08, 2025 Dr. Zenaida Reynoso MD Nurse Practitioner Active Start: March 08, 2025 Team Status: Inactive Member Role/Relationship Status Dates Dr. Oleksandr Holbrook MD Referring Provider Active Start: March 23, 2025 End: March 23, 2025 JESUSITA Palacios Attending physician Active Sta rt: March 23, 2025 End: March 23, 2025 Heidy Hernandez NP-C Primary care physician Active Start: March 23, 2025 End: March 23, 2025 Team Status: Inactive Member Role/Relationship Status Dates Heidy Hernandez NP-C Primary care physician Active Start: March 23, 2025 End: March 23, 2025 Dr. Yovani Doyle MD Attending physician Active Start: March 23, 2025 End: March 23, 2025 Team Status: Inactive Member Role/Relationship Status Dates Dr. Oleksandr Holbrook MD Referring Provider Active Start: April 18, 2025 End: April 18, 2025 JESUSITA Palacios Attending physician Active Sta rt: April 18, 2025 End: April 18, 2025 Heidy Hernandez NP-C Primary care physician Active Start: April 18, 2025 End: April 18, 2025 Team Status: Inactive Member Role/Relationship Status Dates Heidy Hernandez [employer]ING MAINTENANCE WORKER-C Primary care physician Active Start: April 18, 2025 End: April 18, 2025 Dr. Yovani Doyle MD Attending physician Active Start: April 18, 2025 End: April 18, 2025 Team Status: Active Member Role/Relationship Status Dates Heidy Hernandez NP-C Primary care physician Active Start: April 27, 2025 JESUSITA Palacios Attending physician Active Sta rt: April 27, 2025 JESUSITA Palacios Referring Provider Active Star t: April 27, 2025 FOR RECORDS PERTAINING TO PATIENTS WHO ARE OR HAVE BEEN ENROLLED IN A CHEMICAL DEPENDENCY/SUBSTANCEABUSE PROGRAM, SOME INFORMATION MAY BE OMITTED. This clinical summary was aggregated from multiple sources. Caution should be exercised in using it in the provision of clinical care. This summary normalizes information from multiple sources, and as a consequence, information in this document may materially change the coding, format and clinical context of patient data. In addition, data may be omitted in some cases. CLINICAL DECISIONS SHOULD BE BASED ON THE PRIMARY CLINICAL RECORDS. [facility]. provides no warranty or guarantee of the accuracy or completeness of information in this document.
== END | disposition home or self-care (01) ==
LOC: MRI 07:27
PROVIDERS: PCP Nurse Practitioner Family; Referring Provider Student in an Organized Health Care Education/Training Program; Visit Provider Student in an Organized Health Care Education/Training Program
DX: M51.34 Other intervertebral disc degeneration, thoracic region (principal)
CPT/HCPCS: 72146